=== PATIENT | female | born 1940 | race Caucasian/White ===

== ENCOUNTER 2024-01-11 02:45 | Outpatient (CLI) | payer MEDICARE, OTHER, SELFPAY ==
--- OUTSIDE RECORDS SUMMARY | 2024-01-15 07:46 | XMS_ITS | Clinical Summary ---
Author Organization [facility] Address [address] [place] [address] Care Team Providers Care Front Desk Attendant Name Role Phone Mich Luevano D.O. Primary Care Pro vider Source Comments Patient records contain information from all sites at [facility]. For routine questions regarding patient records, call [phone] during business hours, M-F 8:00 AM - 5:00 PM Central Time. Record requests for emergency care only can be directed to [phone] at any time.[facility] Allergies No known active allergies Medications * [...] Dilated (HCC),Chronic Systolic (Congestive) Heart Failure (HCC),Thrombus Intracardiac,Prison (Current) Anticoagulant Treatment,Monitor ing For Therapeutic Drug [...] cares, use of resources and specialty equipment. 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 Assessment & Plan (09/22/2020 2:16 [...] 3 to 6 months. Will follow with [facility] anticoagulation team. Congestive Heart Failure Eje ction Fraction Less Than 35 Percent And [place] Heart Association Class 2-3 09/13/2020 Overview (04/11/2021): [...] ?? Assessment & Plan (03/11/2021 2:46 PM ELECTRONIC DATA INTERCHANGE SPECIALIST): Handicap parking permit renewed for 6 years [...] have gone ahead and refer her to [facility] Cardiology for their assistance in [...] at that time. Plan to schedule the [facility] Cardiology follow-up and echo prior. ECG also ordered today for an irregular pulse. 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 Mingus lymph node biopsy with isotope and dye [...] smoker Assessment & Plan (03/11/2021 3:05 PM ELECTRONIC DATA INTERCHANGE SPECIALIST): Will continue on current regimen. She will [...] months Next labs: 6 months Referrals: None [facility] Tobacco None: No Aspirin: yes Statin [...] if celiac negative, Order fecal calprotectin (Epic: [id number]) and fecal fat (Epic: [id number]). Categorize test results into 1 of 3 types of chronic diarrhea, per ask [place] Expert chronic diarrhea algorithm. 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 PandaDoc Form (Order [id number]) 01/13/2024 Clinical Communication Department of Anticoagulation in [place], [place] [address] [place] [address] Isidra Stewart Anticoagulation (Admitted) 01/13/2024 Refill Department of Family Medicine, [address] [address] Luis Alfredofschulte-Be Mich cardona D.O. Med Refill 01/12/2024 Clinical Communication Department of Family Medicine, [address] [address] Hardychulte-Be Mich cardona D.O. Panda Doc Form (Order #[id number]) 01/07/2024 Clinical Communication Department of Anticoagulation in [place], [place] [address] [place] [address] Alka Chaudhari R.N. Anticoagulation (Medication interaction) 01/06/2024 3:30 PM CDT Office Visit Department of Family Medicine, [address] [address] Hardychulte-Be Mich cardona D.O. Abscess Skin (Primary Dx); Cerumen Impacted Bilateral; Morbid Obesity (HCC); Candidiasis Intertrigo; Health Maintenance Examination Adult; Depression Major Recurrent Moderate (HCC) 01/06/2024 Clinical Communication Department of Family Medicine, [address] [address] Luis Alfredofschulte-Be Mich cardona D.O. PandaDoc Form (Order [id number]) 01/05/2024 Nurse Triage Department of Family Medicine, [facility] [address] [address] Isidra Vincent R.N. Appt Request 01/05/2024 Clinical Communication Department of Family Medicine, [place], [place] [address] [place] [address] Luis Alfredofschulte-Be ckMich D.O. PandaDoc Form (Physicians Order) 01/04/2024 Clinical Communication Department of Family Medicine, [address] [address] Luis Alfredofschulte-Be ck, Mich Wang D.O. Phone Contact (Update ) 12/31/2023 1:30 PM CDT Anticoagulation Visit Department of Anticoagulation in [place], [place] [address] [place] [phone] Luis Alfredofschulte-Be Mich cardona D.O. Cardiomyopathy Dilated (HCC) (Primary Dx); Chronic Systolic (Congestive) Heart Failure (HCC); Thrombus Intracardiac; Prison (Current) Anticoagulant Treatment; Monitoring For Therapeutic Drug Therapy 12/23/2023 2:00 PM CDT Anticoagulation Visit Department of Anticoagulation in [place], [place] [address] [place] [phone] Luis Alfredofschulte-Be Mich cardona D.O. 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 12/20/2023 Clinical Communication Department of Family Medicine, [address] [address] Luis Alfredofschulte-Be Mich cardona D.OOsvaldo PandaDoc Form (Order [id number]) 12/15/2023 3:00 PM CDT Anticoagulation Visit Department of Anticoagulation in [place], [place] [address] [place] [address] Luis lAfredofschulte-Be ckMich D.O. Cardiomyopathy Dilated (HCC) (Primary Dx); Chronic Systolic (Congestive) Heart Failure (HCC); Thrombus Intracardiac; Prison (Current) Anticoagulant Treatment; Monitoring For Therapeutic Drug Therapy 12/09/2023 Clinical Communication Department of Family Medicine, [place], [place] [address] [place] [address] Luis Alfredofschulte-Be ckMich D.O. PandaDoc Form (OT order) 12/08/2023 1:15 PM CDT Anticoagulation Visit Department of Anticoagulation in [place], [place] [address] [place] [phone] Luis Alfredofschulte-Be ckMich D.O. Cardiomyopathy Dilated (HCC) (Primary Dx); Chronic Systolic (Congestive) Heart Failure (HCC); Thrombus Intracardiac; Prison (Current) Anticoagulant Treatment; Monitoring For Therapeutic Drug Therapy 12/06/2023 Clinical Communication Department of Family Medicine, [place], [place] [address] [place] [address] Luis Alfredofschulte-Be Mich cardona D.O. PandaDoc Form (Order [id number]) 12/06/2023 Refill Department of Family Medicine, [place], [place] [address] [place] [address] Luis Alfredofschulte-Be Mich cardona D.O. Med Refill 12/01/2023 1:30 PM CDT Anticoagulation Visit Department of Anticoagulation in [place], [place] [address] [place] [phone] Luis Alfredofschulte-Be ckMich D.O. Chronic Systolic (Congestive) Heart Failure (HCC) (Primary Dx); Cardiomyopathy Dilated (HCC); Thrombus Intracardiac; Prison (Current) Anticoagulant Treatment; Monitoring For Therapeutic Drug Therapy 11/24/2023 1:40 PM CDT Anticoagulation Visit Department of Anticoagulation in [place], [place] [address] [place] [address] Li Riggs D.O. Cardiomyopathy Dilated (HCC) (Primary Dx); Prison (Current) Anticoagulant Treatment; Thrombus Intracardiac; Congestive Heart Failure Ejection Fraction Less Than 35 Percent And [place] Heart Association Class 2-3 (HCC); Monitoring For Therapeutic Drug Therapy; Chronic Systolic (Congestive) Heart Failure (HCC) 11/24/2023 Clinical Communication Department of Family Medicine, [address] [address] Hofschulte-Be Mich cardona D.O. Panda Doc Form (Order #[id number]) 11/19/2023 Clinical Communication Department of Family Medicine, [address] [address] Luis Alfredofschulte-Be Mich cardona D.O. Order Request 11/19/2023 Clinical Communication Department of Family Medicine, [address] [address] Luis Alfredo Maravilla, ROsvaldoNOsvaldo Follow-up (Appt today) 11/12/2023 Clinical Communication Department of Family Medicine, [address] [address] Hofschulte-Be Mich cardona D.O. Med Question 10/25/2023 Clinical Communication Department of Family Medicine, [address] [address] Luis Alfredofschulte-Be Mich cardona D.O. 10/21/2023 Clinical Communication Department of Anticoagulation in [place], [place] [address] [place] [address] Stacey Suero, R.N. Anticoagulation (Hospital discharge, SNF admit) 10/20/2023 Clinical Communication Department of Family Medicine, [address] [address] Mich Hickman D.O. 10/19/2023 Clinical Communication Department of Family Medicine, [place], [place] [address] [place] [address] Mich Hickman D.O. Order Request 10/17/2023 5:45 AM CDT - 10/20/2023 2:25 PM CDT Hospital Encounter [facility], Second Floor [address] [place] [address] Sonia Lucas M.D., M.S. Rafa Mayberry M.D., M.P.H. [employer] M.D. 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) Anticoagulant Treatment; Thrombus Intracardiac; Congestive Heart Failure Ejection Fraction Less Than 35 Percent And [place] Heart Association Class 2-3 (HCC); Monitoring For [...] Name Status Comments Daughter Yennifer Mother karl iram Social History Tobacco Use Types Packs/Day Years Used Date Smoking Tobacco: Never Passive Smoke Exposure: Never Smokeless Tobacco: Never Tobacco Cessation:Counseling Given: Not Answered Alcohol Use Standard Drinks/Week Comments Yes 1 (1 standard drink = 0.6 oz pur e alcohol) [facility] Utilities Answer Date Recorded In [...] any clubs o r organizations such as advent groups, unions, fraternal or athletic groups, or [...] PHQ-2 Score 6 10/05/2023 [facility] - Occupational Stress Questionnaire Answer [...] living situation today? I have a [facility] place to live 10/17/2023 Education Answer Date Recorded What is the highest level of school you have completed or the highest degree you have received? Some college, no degree 09/28/2018 Comments No Sex and Gender Information Value Date Recorded Sex Assigned at Female 09/22/2017 1:45 PM CDT Legal Sex Female 7:19 AM ELECTRONIC DATA INTERCHANGE SPECIALIST Gender Identity Female 09/22/2017 1:45 PM [...] st Contact Info) Description 01/19/2024 3:30 PM ELECTRONIC DATA INTERCHANGE SPECIALIST Nurse Only Department of Family Medicine, [facility], in [place], [place] [address] [address] Health Maintenance Due Date Last Done Comments Visit: Medicare Annual Wellness 1940 RSV vaccine - (32-36 weeks) or 60+ years (1 - 1-dose 75+ series) 2017 Diabetic Office Visit with Foot Exam 08/06/2021 08/06/2020, 08/10/2019, 08/10/2019 Urine Albumin 12/01/2022 12/01/2021, 07/14, 08/08/2019, Additional history exists Depression Monitoring (PHQ-9 for quality tracking) 03/15/2023 Dilated Eye Exam 05/15/2023 05/14/2022 (Per formed [...] 138/77(01/05 3:23 PM CDT) No Honey King R, R.N. Do one productive activity per day General On track(2018 1:31 PM CDT) Yes Teodora Horvath R.NOsvaldo Note: i.e. flatware maker: clean the kitchen, vacuum, laundry 11/09 is doing more but not everyday 11/23 doing that most of the time, ie laundry, clean kitchen, clean bedroom 12/07/18 been gone a lot so hard to do this Engage in social activities Lifestyle On track(2018 1:32 PM CDT) No Teodora Horvath R.N. Note: Pt will look into attending Senior vitality group at [facility] starting in November 20 went to funerals, talked with another lady she did not know there, doing swinging seniors, swim aerobics, visited her son 11/23/18 went to [email or web address], going to [place] visit [place], going to [employer] 12/07/18 [place] mom and went to concert in [place]. Made a new friend. Hemoglobin A1c < 7.0 Result Component 9.9(05/06/19 24 1:03 PM ELECTRONIC DATA INTERCHANGE SPECIALIST) No Honey King R.N. PHQ-9 Total Score (max 27) < 5 Symptom Management 16( 4 2:19 PM CDT) No Teodora Horvath R.N. Medical Devices Implanted Type Area Stripping Shovel Operator Device Identifier Shelf Expiration Date Model / Serial / Lot Alpine Stent 3.5 X 15 - Valderrama [id number] Implanted:Qty: 1 on 12/24/2016 Cardiac Stent Berry Description:Device Manufactu rer - [employer]. Device Status Text - [id number]. Screw-Matrixrib S-Tap Lock 2.9 X 12mm - Val[place]ama [id number] Implanted:Qty: 5 on 02/16/2012 Hardware e.g. pins/screws/ rods Depuy Synthes Description:Device Manufactu rer - Synthes. Device Status Text - [id number]. Plate-Matrixrib Univ. 8 Holes - Valderrama [id number] Implanted:Qty: 1 on 02/16/2012 Hardware e.g. pins/screws/ rods Depuy Synthes Description:Device Manufactu rer - Synthes. Device Status Text - [id number]. Screw-Matrixrib S-Tap Lock 2.9 X 10mm - Val[place]ama [id number] Implanted:Qty: 3 on 02/16/2012 Hardware e.g. pins/screws/ rods Depuy Synthes Description:Device Manufactu rer - Synthes. Device Status Text - [id number]. Procedures Procedure Name Priority Date/Time Associated Diagnosis Comments MD RMVL IMPACT CERUMEN IRRIG UNILAT Routine 01/06/2024 [...] POCT, B Routine 10/15/2023 10:59 AM CDT Prison (Current) Anticoagulant Treatment Thrombus Intracardiac Congestive Heart Failure Ejection Fraction Less Than 35 Percent And [place] Heart Association Class 2-3 (HCC) Monitoring For Therapeutic Drug Therapy Cardiomyopathy Dilated (HCC) Chronic Systolic (Congestive) Heart Failure (HCC) HEMOGLOBIN A1C, B Routine 05/06/2023 1:0 3 PM ELECTRONIC DATA INTERCHANGE SPECIALIST Diabetes Mellitus Type 2 (HCC) ALBUMIN, RANDOM, U Routine 12/01/2021 3: 22 PM CDT Diabetes Mellitus Type 2 (HCC) from Last 3 Months or Most Recently Relevant to Health Maintenance Results * MD RMVL IMPACT CERUMEN IRRIG UNILAT (01/06/2024 3:30 PM CDT) Narrative MMODAL - 01/06/2024 3:30 PM CDT Nissa Mukherjee L.P.N. ? 01/10/2024 11:21 AM Ear cerumen removal Performed by: Nissa Mukherjee L.P.N. Authorized by: Mich Luevano, DaltonOOsvaldo ?? Care team members present 1. Lonny, Nissa J, L.P.N. PROCEDURE DETAILS Location: left ear and [...] URGICAL ORDERABLES Final Result Performing Organization Address [facility] de Phone Number MMODAL NA * Prothrombin Time (PT) (12/31/2023) Only the most recent of11 resultswithin the time period is included. EXT INR 2.80 OTHER (SPE CIFY IN ADVANCED NURSING PROFESSOR) Comment:HHC/POC Blood (Blood, Venous) Historical Provider LAB BLOOD ADD-ON Final Resul t Performing Organization Address [facility] de Phone Number OTHER (SPECIFY IN ADVANCED NURSING PROFESSOR) N/A * (ABNORMAL) Glucose, POCT (10/20/2023 12:05 [...] ORDERABLES-MANUAL Janet l Result Performing Organization Address City/[facility]/ZIP Co de Phone Number POC [facility] [address] [place] [address], [facility] PCLX [facility] POC [address] [place] [address] * (ABNORMAL) CBC without Differential (10/19/2023 6:00 AM CDT) [facility] Hemoglobin 10.4(L) 11.6 - 15.0 g/dL [...] C.N.P. LAB BLOOD ADD-ON Janet l Result [facility] [address] [place] [address], [facility] DTL [facility] [address] [place] [address] * (ABNORMAL) Basic Metabolic Panel (10/19/2023 6:00 AM CDT) Only the most recent of2 resultswithin the time period is included. Potassium, S 4.2 3.6 - 5.2 mmol/L [...] C.N.P. LAB BLOOD ADD-ON Janet l Result [facility] [address] [place] [address], [facility] [address] [place] [address] * CT Hip Left without IV Contrast [...] and pelvis. Vascularcalcifications. Sonia Lucas M.D., M.S. [facility] DIAGNOSTIC IMAGING PROCEDURES Final Result * DX [...] M.B.A. LAB BLOOD ADD-ON Janet l Result [facility] [address] [place] [address], [facility] [address] [place] [address] * (ABNORMAL) CBC with Differential, Blood (10/17/2023 6:41 AM CDT) Pathologist [facility] Hemoglobin 10.7(L) 11.6 - 15.0 g/dL 10/17/2023 [...] M.B.A. LAB BLOOD ADD-ON Janet l Result [facility] [address] [place] [address], [facility] STMA [facility] [address] [place] [address] DHPM [facility] [address] [place] [address] * CT Cervical Spine without IV Contrast (10/17/2023 6:27 AM CDT) Anatomical Region Laterality Modality Cervical Spine, Neuroradiolo gy RST [facility], Neuroradiology [facility], Neuroradiology FLA [facility] N/A Computed Tomography, Compute d Tomography [...] CDT) Ventricular Rate ECG/Min 75 BPM MUSE MD Interval 178 ms MUSE QRSD Interval 156 ms MUSE QT Interval 470 ms MUSE QTC Interval 524 ms MUSE P [place] 57 degrees MUSE R [place] -8 degrees MUSE T Wave [place] 23 degrees MUSE 10/17/2023 5:52 AM CDT 10/17/2023 2:17 PM CDT Impressions MUSE - 10/17/2023 5:55 AM CDT Normal sinus rhythm Right bundle branch block Cannot rule out Inferior infarct Nonspecific ST and T wave abnormality Prolonged QT When compared with ECG of 11-Apr-2021 16:21, MD interval has decreased QT has lengthened Reviewed by KENYON Eugene Narrative Procedure Note Javan Driscoll M.D. - 10/17/2023 IMPRESSION: Normal sinus rhythm Right bundle branch block Cannot rule out Inferior infarct Nonspecific ST and T wave abnormality Prolonged QT When compared with ECG of 11-Apr-2021 16:21, MD interval has decreased QT has lengthened Reviewed by KENYON Eugene Sonia Lucas M.D., M.S. ECG ORDERABLES Edited [...] POCT ORDERABL ES - DEVICE Final Result [facility] [address] [place] [address], [facility] FMKA [facility] [address] [place] [address] * Albumin, Random, Urine (12/01/2021 3:22 PM CDT) Albumin, Random, U <5.0 mg/L 2021 8:34 AM CDT DTL Comment: ----ADDITIONAL INFORMATION---- This test has been modified from the sand conditioner machine's instructions. Its performance characteristics were determined by [facility] in a manner consistent with CLIA requirements. [...] 3:22 PM CDT 12/02/2021 7:12 AM CDT us Li Riggs D.O. LAB URINE ORDERABLES [facility]ly [facility] Result [facility] [address] [place] [address], [facility] [address] [place] [address] from Last 3 Months or Most Recently Relevant to Health Maintenance Insurance [facility] MEDIC[facility] Advance Directives For more information, please contact: [phone] * DNR (Latest Code Status on File) [...] Answer Comments Full Code: Discussed Care Teams Front Desk Attendant Relationship Specialty Start Date End Date Mich Luevano D.O. [address] [place] [phone] PCP - General 09/12/22
--- OUTSIDE RECORDS SUMMARY | 2024-01-15 07:46 | XMS_ITS | Clinical Summary ---
Author Organization [facility] Address [place], [place] [address] Care Team Providers Care Flap Maker Name Role Phone Staff, Other Clinical Primary [...] Encounters Date Type Department Care Team Description 01/11/2024 6:00 PM CDT Ancillary Procedure [address] [address] Arrived 01/11/2024 Ancillary Orders [place] [facility] [address] [place] [address] Junior Mcmillan MD 10/29/2023 Lab Requisition [facility] [phone] Valentina Loera NP 10/28/2023 Lab Requisition [facility] [phone] Valentina Loera NP from Last 3 Months [...] 12/19/2018 9:14 PM CDT Plan of Treatment Upcoming Encounters Date Type Department Care Team (Late st Contact Info) Description 01/20/2024 1:00 PM 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 Office Visit [facility] [address] [place] [address] Martin Short MD [address] [place] [address] Health Maintenance Due Date Last Done Comments [...] age 65+ 11/14/2023 COVID-19 vaccine series Completed 01/06/20, 01/05/2023, 01/02/2022, Additional history exists Medical Devices Implanted Type Area Lye Bath Operator Device Identifier Shelf Expiration Date Model / Serial / Lot Cornea Dwaine Lijoe Precut Dmek Imported - [id number] Implanted:Qty: 1 on 08/03/2018 by Guevara Wade MD at [facility] Right: Eye [place] [employer] Eye [employer] 08/14/2018 CORNEA PRECUT D# / [id number] CN / Mnsert Straiko Dmek Tissue Implanted:Qty: 1 on 12/21/2018 by Tim Francisco MD at [facility] Left: Eye 12/31/2018 CORNEA / [id number] P / Procedures Procedure Name Priority Date/Time Associated Diagnosis Comments ECHO TTE COMPLETE WO CONTRAST Routine 01/11/2024 2:03 PM CDT Heart failure (HC) CBC WITH AUTO DIFFERENTIAL Routine 11/02/2023 [...] unspecified from Last 3 Months Results * ECHO TTE COMPLETE WO CONTRAST (01/11/2024 2:03 PM CDT) AORTIC VALVE MEAN PG 3 mmHg EJECTION FRACTION 36 % PEAK TR VELOCITY 3.5 m/s LVEDD 5.5 cm Anatomical Region Laterality Modality Ultrasound 01/11/2024 1:18 PM CDT Narrative 01/12/2024 9:18 AM CDT ECHOCARDIOGRAM JEANINE CROW ? Accession#: ?? [id number] : ?1940 83 years Study Date: ?? 01/11/2024 1:18:05 PM Gender: F ?BP: ? 106/58 mmHg Height: 157.00 cm ?BSA: ?1.86 m? ? ? Weight: 86.00 kg ? Tech: ? MJS ? Referring MD: JUNIOR MCMILLAN Site: ? [facility] Reading Location: Mobile [facility] Patient Location: Inpatient. Procedure: 2D, Color Doppler and Spectral Doppler. Indication for study: CHF Cardiac Rhythm: Irregular.Study quality: Fair. Final Impressions: 1. Normal left ventricular size, normal wall thickness, moderately reduced global systolic function, calculated EF of 36 %. 2. Right ventricular cavity size is normal, global systolic RV function is mildly reduced. 3. Moderate-severe tricuspid regurgitation. 4. Moderately increased estimated pulmonary pressures by tricuspid regurgitation velocity and right atrial pressure (48 mmHg plus RAP). 5. The inferior vena cava is normal sized, respiratory size variation greater than 50%. 6. The mitral valve is normal, mild mitral regurgitation. Comparison There are no prior studies on this patient for comparison purposes. Chamber Sizes and Function Normal left ventricular size, normal wall thickness, moderately reduced global systolic function, calculated EF of 36 %. Left atrial size is mildly enlarged. Right ventricular cavity size is normal, global systolic RV function is mildly reduced. The right atrium is mildly enlarged. Right atrial area is 18 cm? ? ?. The pulmonary artery is of normal size and origin. The sinus of Valsalva is normal sized. The ascending aorta is dilated. Valves, RV Pressures and Diastolic Function The aortic valve is sclerotic, no stenosis and no regurgitation. The mitral valve is normal in structure, mild mitral regurgitation. Indeterminate pattern of LV diastolic filling. The tricuspid valve is normal in structure. Tricuspid regurgitation is moderate-severe. The tricuspid regurgitant velocity is 3.5 m/s, the estimated right ventricular systolic pressure is 48 mmHg plus right atrial pressure. There is moderately increased estimated pulmonary pressure by tricuspid regurgitation velocity and right atrial pressure. The pulmonic valve is normal. No pulmonary regurgitation. TTE images do not appear adequate for transcather intervention with patient supine. Masses, Effusion, Shunts There is no pericardial effusion. The inferior vena cava is normal sized, respiratory size variation greater than 50%. No left to right shunting was detected by limited color flow Doppler interrogation of the interatrial septum. MEASUREMENTS AND CALCULATIONS 2-D Measurements and LV Function: LVID (d) 5.5 cm Planimetered EF 36 % LVID (s) 4.0 cm LV FS% (2D) ? 26 % IVS (d) ??1.1 cm LVOT diameter ?? 2.1 cm LVPW (d) 1.2 cm HR ?92 bpm Ao Sinus 3.6 cm LA Vol index ?36 ml/m2 Asc Ao ?? 4.0 cm RA area ? 18 cm?RV Max 4C (d) ?? 3.6 cm Diastology: Mitral E Peak 1.2 m/s Aortic Valve: Vmax ? 1.2 m/s ??MEERA (V) ?? 1.74 cm? ? ? VTI ?0.25 m ?? MEERA (I) ?? 1.80 cm? ? ? LVOT V max 0.6 m/s ??Max PG ?6 mmHg LVOT VTI ?? 0.13 m ?? Mean PG ?? 3 mmHg SV ? 45 ml ?Dim Index 0.52 SV index ?? 24 ml/m? ? ? CO ?4.2 l/min ?CI ?2.2 l/min/m? ? ? Tricuspid Valve and estimated PA pressures: TR Vmax 3.5 m/s TAPSE 1.2 cm TR maxG 48 mmHg . This study was interpreted by an [facility] accredited facility. CC: HIM (med records) [facility], Med/Surg - IP [facility]. ??Final (Updated) ?? Procedure Note Ethan Brady MD - 01/12/2024 ECHOCARDIOGRAM JEANINE CROW : 1940 83 years Study Date: 01/11/2024 1:18:05 PM Gender: F BP: 106/58 mmHg Height: 157.00 cm BSA: 1.86 m? ? ? Weight: 86.00 kg Tech: AMY Referring MD: JUNIOR MCMILLAN Site: [facility] Reading Location: Mobile [facility] Patient Location: Inpatient. Procedure: 2D, Color Doppler and Spectral Doppler. Indication for study: CHF Cardiac Rhythm: Irregular.Study quality: Fair. Final Impressions: 1. Normal left ventricular size, normal wall thickness, moderatelyreduced global systolic function, calculated EF of 36 %. 2. Right ventricular cavity size is normal, global systolic RV functionis mildly reduced. 3. Moderate-severe tricuspid regurgitation. 4. Moderately increased estimated pulmonary pressures by tricuspidregurgitation velocity and right atrial pressure (48 mmHg plus RAP). 5. The inferior vena cava is normal sized, respiratory size variationgreater than 50%. 6. The mitral valve is normal, mild mitral regurgitation. Comparison There are no prior studies on this patient for comparison purposes. Chamber Sizes and Function Normal left ventricular size, normal wall thickness, moderately reducedglobal systolic function, calculated EF of 36 %. Left atrial size ismildly enlarged. Right ventricular cavity size is normal, global systolicRV function is mildly reduced. The right atrium is mildly enlarged. Rightatrial area is 18 cm? ? ?. The pulmonary artery is of normal size and origin.The sinus of Valsalva is normal sized. The ascending aorta is dilated. Valves, RV Pressures and Diastolic Function The aortic valve is sclerotic, no stenosis and no regurgitation. Themitral valve is normal in structure, mild mitral regurgitation.Indeterminate pattern of LV diastolic filling. The tricuspid valve isnormal in structure. Tricuspid regurgitation is moderate-severe. Thetricuspid regurgitant velocity is 3.5 m/s, the estimated right ventricularsystolic pressure is 48 mmHg plus right atrial pressure. There ismoderately increased estimated pulmonary pressure by tricuspidregurgitation velocity and right atrial pressure. The pulmonic valve isnormal. No pulmonary regurgitation. TTE images do not appear adequate fortranscather intervention with patient supine. Masses, Effusion, Shunts There is no pericardial effusion. The inferior vena cava is normal sized,respiratory size variation greater than 50%. No left to right shunting wasdetected by limited color flow Doppler interrogation of the interatrialseptum. MEASUREMENTS AND CALCULATIONS 2-D Measurements and LV Function: LVID (d) 5.5 cm Planimetered EF 36 % LVID (s) 4.0 cm LV FS% (2D) 26 % IVS (d) 1.1 cm LVOT diameter 2.1 cm LVPW (d) 1.2 cm HR 92 bpm Ao Sinus 3.6 cm LA Vol index 36 ml/m2 Asc Ao 4.0 cm RA area 18 cm? ? ? RV Max 4C (d) 3.6 cm Diastology: Mitral E Peak 1.2 m/s Aortic Valve: Vmax 1.2 m/s MEERA (V) 1.74 cm? ? ? VTI 0.25 m MEERA (I) 1.80 cm? ? ? LVOT V max 0.6 m/s Max PG 6 mmHg LVOT VTI 0.13 m Mean PG 3 mmHg SV 45 ml Dim Index 0.52 SV index 24 ml/m? ? ? CO 4.2 l/min CI 2.2 l/min/m? ? ? Tricuspid Valve and estimated PA pressures: TR Vmax 3.5 m/s TAPSE 1.2 cm TR maxG 48 mmHg . This study was interpreted by an [facility] accredited facility. CC: HIM (med records) [facility], Med/Surg - IP [facility]. Final (Updated) Junior Mcmillan MD ECHO ORD * (ABNORMAL) CBC WITH AUTO DIFFERENTIAL (11/02/2023 8:21 AM T) WHITE BLOOD COUNT 6.5 4.5 - 11.0 thou/cu mm 11/02/2023 9:[address] [facility] RED BLOOD COUNT 3.41(L) 4.00 - 5.20 mil/cu mm 11/02/2023 9:[address] [facility] HEMOGLOBIN 11.0(L) 12.0 - 16.0 g/dL 11/02/2023 9:[address] [facility] HEMATOCRIT 33.0 33.0 - 51.0 % 11/02/2023 9:[address] [facility] MCV 97 80 - 100 fL 11/02/2023 9:[address] [facility] MCH 32.3 26.0 - 34.0 pg 11/02/2023 9:[address] [facility] MCHC 33.3 32.0 - 36.0 g/dL 11/02/2023 9:[address] [facility] RDW 14.4 11.5 - 15.5 % 11/02/2023 9:[address] [facility] PLATELET COUNT 341 140 - 440 thou/cu mm 11/02/2023 9:[address] [facility] MPV 9.2 6.5 - 11.0 fL 11/02/2023 9:[address] [facility] % NEUT 63.5 % 11/02/2023 9:[address] [facility] % LYMPH 28.2 % 11/02/2023 9:[address] [facility] % MONO 6.0 % 11/02/2023 9:[address] [facility] % EOS 1.7 % 11/02/2023 9:[address] [facility] % BASO 0.6 % 11/02/2023 9:26 AM CDT [facility] ABSOLUTE NEUTROPHILS 4.1 1.7 - 7.0 thou/cu mm 11/02/2023 9:26 AM CDT [facility] ABSOLUTE LYMPHOCYTES 1.8 0.9 - 2.9 thou/cu mm 11/02/2023 9:26 AM CDT [facility] ABSOLUTE MONOCYTES 0.4 <0.9 thou/cu mm 11/02/2023 9:26 AM CDT [facility] ABSOLUTE EOSINOPHILS 0.1 <0.5 thou/cu mm 11/02/2023 9:26 AM CDT [facility] ABSOLUTE BASOPHILS 0.0 <0.3 thou/cu mm 11/02/2023 9:26 AM CDT [facility] Blood BLOOD SPECIMEN / Unknown Venipuncture / Unknown 11/02/2023 8:21 AM CDT 11/02/2023 9:18 AM CDT Valentina Loera NP HEMATOLOGY [facility] [address] [place] [address] * (ABNORMAL) HEMOGLOBIN A1C SCREENING (11/02/2023 8:21 AM CDT) HEMOGLOBIN A1C SCREENING 8.7(H) <=6.4 % 11/02/2023 9:26 AM CDT [facility] Blood BLOOD SPECIMEN / Unknown Venipuncture / Unknown 11/02/2023 8:21 AM CDT 11/02/2023 9:18 AM CDT Narrative [facility] - 11/02/2023 9:26 AM CDT ? (<5.7%) ?Normal ? (5.7% to 6.4%) ? Indicates prediabetes ? (>=6.5%) ? Confirms diabetes Falsely low levels may be seen with: Recent Transfusion, Recent Significant Blood Loss, Hemolytic Diseases, or Falsely elevated levels may be seen with: Untreated Anemias, Splenectomy Valentina Loera NP CHEMISTRY [facility] [address] [facility] [place] [address] * (ABNORMAL) BASIC METABOLIC PANEL (11/02/2023 8:21 AM CDT) SODIUM 139 136 - 145 mmol/L 11/02/2023 9:[address] [facility] POTASSIUM 4.3 3.5 - 5.1 mmol/L 11/02/2023 9:[address] [facility] CHLORIDE 103 98 - 107 mmol/L 11/02/2023 9:[address] [facility] CO2,TOTAL 28 22 - 29 mmol/L 11/02/2023 9:[address] [facility] ANION GAP 8 5 - 18 11/02/2023 9:[address] [facility] GLUCOSE 140(H) 70 - 99 mg/dL 11/02/2023 9:[address] [facility] CALCIUM 9.3 8.8 - 10.2 mg/dL 11/02/2023 9:[address] [facility] BUN 18 8 - 23 mg/dL 11/02/2023 9:[address] [facility] CREATININE 0.90 0.50 - 0.90 mg/dL 11/02/2023 9:[address] [facility] BUN/CREAT RATIO 20 10 - 20 9:[address] [facility] eGFR 65(L) >90 mL/min/1.7 3m2 11/02/2023 9:[address] [facility] Comment:As of 2021, eG FR is calculated by the CKD-EPI creatinine equation without race adjustment. ??eGFR can be influenced by muscle mass, exercise, and diet. ??The reported eGFR is an estimation only and is only applicable if the renal function is stable. Blood BLOOD SPECIMEN / Unknown Venipuncture / Unknown 11/02/2023 8:21 AM CDT 11/02/2023 9:18 AM CDT Valentina Loera NP CHEMISTRY [facility] [address] [place] [address] from Last 3 Months Advance Directives * [...] Code Status Discussion: Not Discussed Care Teams Flap Maker Relationship Specialty Start Date End Date Staff, Other Clinical . PCP - General 10/05/17
--- OUTSIDE RECORDS SUMMARY | 2024-01-15 07:47 | XMS_ITS | Encounter Summary ---
Author Organization [facility] Address [address] [place] [address] Care Team Providers Care Care Partner Name Role Phone Mich Luevano D.O. Primary Care Pro vider Reason for Visit * Reason Onset Date Comments Anticoagulation 01/13/2024 Admitted Encounter Details Date Type Department Care Team (Latest Contact Info) Description 01/13/2024 Clinical Communication Department of Anticoagulation in [place], [place] [address] [place] [address] Isidra Stewart Anticoagulation (Admitted) Social History Tobacco Use Types Packs/Day Years Used Date Smoking Tobacco: Never Passive Smoke Exposure: Never Smokeless Tobacco: Never Alcohol Use Standard Drinks/Week Comments Yes 1 (1 standard drink = 0.6 oz pur e alcohol) [facility] Utilities Answer Date Recorded In the past 12 months has e [employer], gas, oil, or water [employer] threatened to shut off services in your [...] How often do you attend chur or methodist services? More than 4 times per year 06/15/2022 Do you belong to any clubs o r organizations such as shinto groups, unions, fraternal or athletic groups, or [...] Answer Date Recorded PHQ-2 Score 6 10/05/2023 [facility] - Occupational [...] your living situation today? I have a [facility] place to live 10/17/2023 Education Answer Date Recorded What is the highest level of school you have completed or the highest degree you have received? 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 Author Blood Pressure < 140/90 Blood Pressure 138/77(01/05 3:23 PM CDT) No Honey King R.N. Do one productive activity per day General On track(2018 1:31 PM CDT) Yes Teodora Horvath R.N. Note: i.e. 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 Note: Pt will look into attending Senior vitality group at [facility] starting in November 20 went to funerals, talked with another lady she did not know there, doing [employer], swim aerobics, visited her son 11/23/18 went to [employer], going to [place] to visit relatives, going to [employer] 12/07/18 went to [place] to visit mom and went to concert in [place]. Made a new friend. Hemoglobin A1c < 7.0 Result Component 9.9(05/06/19 24 1:03 PM STUDIO PRODUCER) No Honey King RLiyah PHQ-9 Total Score (max 27) < 5 Symptom Management 16( 4 2:19 PM CDT) No Teodora Horvath ROsvaldoNOsvaldo documented as of this encounter Visit Diagnoses Not on filedocumented in this encounter Additional Health Concerns Assessment Noted Time PHQ-9 Depression Total Score: 16 024 2:19 PM CDT documented as of this encounter Care Teams Care Partner Relationship Specialty Start Date End Date Mich Luevano D.O. [address] [place] [address] PCP - General 09/12/22 documented as of this encounter
--- OUTSIDE RECORDS SUMMARY | 2024-01-15 07:47 | XMS_ITS | Referral Summary ---
Author Organization [facility] Address [address] [place] [address] Care Team Providers Care Radar Mechanic Name Role Phone Mich Luevano D.O. Primary Care Pro vider Source Comments Patient records contain information from all sites at [facility]. For routine questions regarding patient records, call [phone] during business hours, M-F 8:00 AM - 5:00 PM Central Time. Record requests for emergency care only can be directed to [phone] at any time.[facility] Encounters Date Type Department Care Team Description 01/13/2024 Clinical Communication Department of Family Medicine, [facility], [place], [place] [address] [place] [address] Mich Hickman D.O. PandaDoc Form (Order [id number]) 01/13/2024 Clinical Communication Department of Anticoagulation in [place], [place] [address] [place] [address] Isidra Stewart Anticoagulation (Admitted) 01/13/2024 Refill Department of Family Medicine, [place], [place] [address] [place] [address] Mich Hickman D.O. Med Refill 01/12/2024 Clinical Communication Department of Family Medicine, [address] [address] Hardychulte-Be Mich cardona D.O. Panda Doc Form (Order #[id number]) 01/07/2024 Clinical Communication Department of Anticoagulation in [place], [place] [address] [place] [address] Alka Chaudhari R.N. Anticoagulation (Medication interaction) 01/06/2024 Clinical Communication Department of Family Medicine, [address] [address] Hardychulte-Be Mich cardona D.O. PandaDoc Form (Order [id number]) 01/06/2024 3:30 PM CDT Office Visit Department of Family Medicine, [address] [address] Jhonulte-Be Mich cardona D.O. Abscess Skin (Primary Dx); Cerumen Impacted Bilateral; Morbid Obesity (HCC); Candidiasis Intertrigo; Health Maintenance Examination Adult; Depression Major Recurrent Moderate (HCC) 01/05/2024 Nurse Triage Department of Family Medicine, [address] [address] Isidra Vincent RLiliya. Appt Request 01/05/2024 Clinical Communication Department of Family Medicine, [address] [address] Luis Alfredofschulte-Be Mich cardona D.O. PandaDoc Form (Physicians Order) 01/04/2024 Clinical Communication Department of Family Medicine, [address] [address] Hardychulte-Be Mich cardona D.O. Phone Contact (Update ) 12/31/2023 1:30 PM CDT Anticoagulation Visit Department of Anticoagulation in [place], [place] [address] [place] [address] Luis Alfredofschulte-Be ckMich D.O. Cardiomyopathy Dilated (HCC) (Primary Dx); Chronic Systolic (Congestive) Heart Failure (HCC); Thrombus Intracardiac; Assisted (Current) Anticoagulant Treatment; Monitoring For Therapeutic Drug Therapy 12/23/2023 2:00 PM CDT Anticoagulation Visit Department of Anticoagulation in [place], [place] [address] [place] [address] Hofschulte-Be ckMich D.OOsvaldo Cardiomyopathy Dilated (HCC) (Primary Dx); Chronic Systolic (Congestive) Heart Failure (HCC); Thrombus Intracardiac; Lift Builder Whole (Current) Anticoagulant Treatment; Monitoring For Therapeutic Drug Therapy 12/21/2023 Orders Only [facility] Luis Alfredofschulte-Be Mich cardona D.O. 12/20/2023 Clinical Communication Department of Family Medicine, [place], [place] [address] [place] [address] Hofschulte-Be ckMich D.O. PandaDoc Form (Order [id number]) 12/15/2023 3:00 PM CDT Anticoagulation Visit Department of Anticoagulation in [place], [place] [address] [place] [phone] Luis Alfredofschulte-Be ckMich D.OOsvaldo Cardiomyopathy Dilated (HCC) (Primary Dx); Chronic Systolic (Congestive) Heart Failure (HCC); Thrombus Intracardiac; Assisted (Current) Anticoagulant Treatment; Monitoring For Therapeutic Drug Therapy 12/09/2023 Clinical Communication Department of Family Medicine, [place], [place] [address] [place] [address] Hofschulte-Be ckMich D.OOsvaldo DomingoaDoc Form (OT order) 12/08/2023 1:15 PM CDT Anticoagulation Visit Department of Anticoagulation in [place], [place] [address] [place] [address] [facility] D.[facility]. Cardiomyopathy Dilated (HCC) (Primary Dx); Chronic Systolic (Congestive) Heart Failure (HCC); Thrombus Intracardiac; Assisted (Current) Anticoagulant Treatment; Monitoring For Therapeutic Drug Therapy 12/06/2023 Clinical Communication Department of Family Medicine, [place], [place] [address] [place] [address] Luis Alfredofschulte-Be Mich cardona D.O. PandaDoc Form (Order [id number]) 12/06/2023 Refill Department of Family Medicine, [place], [place] [address] [place] [address] Hardychulte-Be Mich cardona D.O. Med Refill 12/01/2023 1:30 PM CDT Anticoagulation Visit Department of Anticoagulation in [place], [place] [address] [place] [address] [facility] Mich cardona D.O. Chronic Systolic (Congestive) Heart Failure (HCC) (Primary Dx); Cardiomyopathy Dilated (HCC); Thrombus Intracardiac; Assisted (Current) Anticoagulant Treatment; Monitoring For Therapeutic Drug Therapy 11/24/2023 1:40 PM CDT Anticoagulation Visit Department of Anticoagulation in [place], [place] [address] [place] [address] Li Riggs D.Hermes Cardiomyopathy Dilated (HCC) (Primary Dx); Lift Builder Whole (Current) Anticoagulant Treatment; Thrombus Intracardiac; Congestive Heart Failure Ejection Fraction Less Than 35 Percent And [place] Heart Association Class 2-3 (HCC); Monitoring For Therapeutic Drug Therapy; Chronic Systolic (Congestive) Heart Failure (HCC) 11/24/2023 Clinical Communication Department of Family Medicine, [place], [place] [address] [place] [address] Renny-Be Mich cardona D.O. Panda Doc Form (Order #[id number]) 11/19/2023 Clinical Communication Department of Family Medicine, [facility] [place], [place] [address] [place] [address] Luis Alfredofschulte-Be dulce, Dalton EstradaO. Order Request 11/19/2023 Clinical Communication Department of Family Medicine, [place], [place] [address] [place] [address] Luis Alfredo Maravilla R.N. Follow-up (Appt today) 11/12/2023 Clinical Communication Department of Family Medicine, [address] [address] Hardychulte-Be dulce, Mich Wang D.O. Med Question 10/25/2023 Clinical Communication Department of Family Medicine, [place], [place] [address] [place] [address] Renny-Be dulce, Dalton EstradaO. 10/21/2023 Clinical Communication Department of Anticoagulation in [place], [place] [address] [place] [address] Stacey Suero, ROsvaldoN. Anticoagulation (Hospital discharge, SNF admit) 10/20/2023 Clinical Communication Department of Family Medicine, [address] [address] Hardychulte-Be dulce, Sherry Estrada.O. 10/17/2023 5:45 AM CDT - 10/20/2023 2:25 PM CDT Hospital Encounter [facility], Second Floor [address] [place] [address] Sonia Lucas M.D., M.S. Rafa Mayberry M.D., M.P.H. [employer] M.D. 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 Order Request 10/15/2023 10:10 AM CDT Anticoagulation Visit Department of Anticoagulation in [place], [place] [address] [place] [address] Li Riggs D.O. Thrombus Intracardiac (Primary Dx); Cardiomyopathy Dilated (HCC); Chronic Systolic (Congestive) Heart Failure (HCC); Assisted (Current) Anticoagulant Treatment; Monitoring For Therapeutic Drug Therapy 10/15/2023 9:30 AM CDT - 10/15/2023 11:59 PM CDT Hospital Encounter Department of Laboratory Medicine in [address] [address] Mich Hickman D.O. Lift Builder Whole (Current) Anticoagulant Treatment; Thrombus Intracardiac; Congestive Heart Failure Ejection Fraction Less Than 35 Percent And [place] Heart Association Class 2-3 (HCC); Monitoring For [...] Dilated (HCC),Chronic Systolic (Congestive) Heart Failure (HCC),Thrombus Intracardiac,Lift Builder Whole (Current) Anticoagulant Treatment,Monitor ing For Therapeutic Drug [...] Apply to painful joints and muscles. 10/20/19 024 Discontin ued(Thera py completed ) lidocaine (Lidoderm) 5 % adhesive patch,medicated Place 1 patch on the skin daily. Apply to painful areas. 10/20/19 024 Discontin ued(Thera py completed ) nystatin (Nystop) 100,000 unit/gram powder Apply 1 Application topically 2 (two) times a day. Apply to groin folds. 10/20/19 24 024 Discontin ued(Reord er) oxyCODONE (Roxicodone) 5 mg immediate release tabletIndications :Acute Pain Take 0.5-1 tablets (2.5-5 mg total) by mouth every 4 (four) hours as needed for severe pain or score 7-10 of 10 (Give 2.5 mg for pain score 4-6 or give 5 mg for pain score 7-10) Indication: Acute Pain. 18 tablet 10/20/19 024 Discontin ued(Therehsan py completed ) Active Problems Problem Noted [...] cares, use of resources and specialty equipment. Assisted (Current) Anticoagulant Treatment 09/12 Overview (09/22/2020): Intracardiac thrombus Assessment & Plan (10/07/2020 4:06 PM CDT): She has followed with [facility] anticoagulation team. Assessment & Plan (09/22/2020 [...] 3 to 6 months. Will follow with [facility] anticoagulation team. Congestive Heart Failure Eje ction Fraction Less Than 35 Percent And [place] Heart Association Class 2-3 09/13/2020 Overview (04/11/2021): [...] ?? Assessment & Plan (03/11/2021 2:46 PM HOME VISIT FIELD CARE MANAGER): Handicap parking permit renewed for 6 years [...] have gone ahead and refer her to [facility] Cardiology for their assistance in managing [...] at that time. Plan to schedule the [facility] Cardiology follow-up and echo prior. ECG also ordered today for an irregular pulse. 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 Wilson lymph node biopsy with isotope and dye [...] smoker Assessment & Plan (03/11/2021 3:05 PM HOME VISIT FIELD CARE MANAGER): Will continue on current regimen. She will [...] months Next labs: 6 months Referrals: None [facility] Tobacco None: No Aspirin: yes Statin Use [...] if celiac negative, Order fecal calprotectin (Epic: [id number]) and fecal fat (Epic: [id number]). Categorize test results into 1 of 3 types of chronic diarrhea, per ask [place] Expert chronic diarrhea algorithm. 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 More than 4 times per year 06/15/2022 Do you belong to any clubs o r organizations such as confucianist groups, unions, fraternal or athletic groups, or [...] Answer Date Recorded PHQ-2 Score 6 10/05/2023 [facility] [place] of Occupat ional Health - Occupational Stress [...] your living situation today? I have a [employer] place to live 10/17/2023 Education Answer Date Recorded What is the highest level of school you have completed or the highest degree you have received? Some college, no degree 09/28/2018 Comments No Sex and Gender Information Value Date Recorded Sex Assigned at Female 09/22/2017 1:45 PM CDT Legal Sex Female 7:19 AM HOME VISIT FIELD CARE MANAGER Gender Identity Female 09/22/2017 1:45 PM CDT [...] st Contact Info) Description 01/19/2024 3:30 PM HOME VISIT FIELD CARE MANAGER Nurse Only Department of Family Medicine, [facility], in [place], [place] [address] [place] [address] Goals Goal Patient Goal Type Associated Problems Recent Progress Patient-Stated? Author Blood Pressure < 140/90 Blood Pressure 138/77(01/05 3:23 PM CDT) No Honey King ROsvaldoN. Do one productive activity per day General On track(2018 1:31 PM CDT) Yes Teodora Horvath, R.N. 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 Made a new friend. Hemoglobin A1c < 7.0 Result Component 9.9(05/06/19 24 1:03 PM HOME VISIT FIELD CARE MANAGER) No Honey King R.N. PHQ-9 Total Score (max 27) < 5 Symptom Management 16( 2:19 PM CDT) No Teodora Horvath R.N. Medical Devices Implanted Type Area Manager Educational Device Identifier Shelf Expiration Date Model / Serial / Lot Mohanine Stent 3.5 X 15 - Valderrama [id number] Implanted:Qty: 1 on 12/24/2016 Cardiac Stent Berry Description:Device Manufactu rer - [employer]. Device Status Text - [id number]. Screw-Matrixrib S-Tap Lock 2.9 X 12mm - Valderrama [id number] Implanted:Qty: 5 on 02/16/2012 Hardware e.g. pins/screws/ rods Depuy Synthes Description:Device Manufactu rer - Synthes. Device Status Text - [id number]. Plate-Matrixrib Univ. 8 Holes - Valderrama [id number] Implanted:Qty: 1 on 02/16/2012 Hardware e.g. pins/screws/ rods Depuy Synthes Description:Device Manufactu rer - Synthes. Device Status Text - [id number]. Screw-Matrixrib S-Tap Lock 2.9 X 10mm - Valderrama [id number] Implanted:Qty: 3 on 02/16/2012 Hardware e.g. pins/screws/ rods Depuy Synthes Description:Device Manufactu rer - Synthes. Device Status Text - [id number]. Procedures Procedure Name Priority Date/Time Associated Diagnosis Comments TX RMVL IMPACT CERUMEN IRRIG UNILAT Routine 01/06/2024 [...] POCT, B Routine 10/15/2023 10:59 AM CDT Lift Builder Whole (Current) Anticoagulant Treatment Thrombus Intracardiac Congestive Heart Failure Ejection Fraction Less Than 35 Percent And [place] Heart Association Class 2-3 (HCC) Monitoring For Therapeutic Drug Therapy Cardiomyopathy Dilated (HCC) Chronic Systolic (Congestive) Heart Failure (HCC) HEMOGLOBIN A1C, B Routine 05/06/2023 1:0 3 PM HOME VISIT FIELD CARE MANAGER Diabetes Mellitus Type 2 (HCC) ALBUMIN, RANDOM, U Routine 12/01/2021 3: 22 PM CDT Diabetes Mellitus Type 2 (HCC) from Last 3 Months or Most Recently Relevant to Health Maintenance Results * TX RMVL IMPACT CERUMEN IRRIG UNILAT (01/06/2024 3:30 PM CDT) Narrative MMODAL - 01/06/2024 3:30 PM CDT Nissa Mukherjee L.P.N. ? 01/10/2024 11:21 AM Ear cerumen removal Performed by: Nissa Mukherjee L.P.N. Authorized by: Mich Luevano, DaltonOOsvaldo ?? Care team members present 1. Nissa [...] EXT INR 2.80 OTHER (SPE CIFY IN SENIOR PRODUCT DESIGNER) Comment:HHC/POC Blood (Blood, Venous) Historical Provider LAB BLOOD ADD-ON Final Resul t Performing Organization Address City/[facility] Co de Phone Number OTHER (SPECIFY IN SENIOR PRODUCT DESIGNER) N/A * (ABNORMAL) Glucose, POCT (10/20/2023 12:05 [...] ORDERABLES-MANUAL Janet l Result Performing Organization Address City/[facility]/ZIP Co de Phone Number POC [facility] [address] [place] [address], [facility] PCLX [facility] POC [address] [place] [address] * (ABNORMAL) CBC without Differential (10/19/2023 6:00 [...] C.N.P. LAB BLOOD ADD-[place] [address], [place] [address] * (ABNORMAL) Basic Metabolic Panel (10/19/2023 6:00 [...] C.N.P. LAB BLOOD ADD-ON Janet l Result [address] [address], [facility] [place] [address] * CT Hip Left without IV Contrast [...] and pelvis. Vascularcalcifications. Sonia Lucas M.D., M.S. IM DIAGNOSTIC IMAGING PROCEDURES Final Result * DX [...] 6:41 AM CDT 10/17/2023 7:07 AM CDT us Darius Reeder M.D., M.B.A. LAB BLOOD ADD-ON Janet l Result [facility] ER - [facility] [address] [place] [address], [facility] DTL [facility] [address] [place] [address] * (ABNORMAL) CBC with Differential, Blood (10/17/2023 [...] LAB BLOOD ADD-ON Janet l Result [facility] [address] [place] [address], [facility] STMA [facility] [address] [place] [address] [facility] [address] [place] [address] * CT Cervical Spine without IV Contrast [...] changes as described. Sonia Lucas M.D., M.S. IM CT PROCEDURES Final Result * CT Head [...] CDT) Ventricular Rate ECG/Min 75 BPM MUSE TX Interval 178 ms MUSE QRSD Interval 156 ms MUSE QT Interval 470 ms MUSE QTC Interval 524 ms MUSE P [place] 57 degrees MUSE R [place] -8 degrees MUSE T Wave [place] 23 degrees MUSE 10/17/2023 5:52 AM CDT 10/17/2023 2:17 PM CDT Impressions MUSE - 10/17/2023 5:55 AM CDT Normal sinus rhythm Right bundle branch block Cannot rule out Inferior infarct Nonspecific ST and T wave abnormality Prolonged QT When compared with ECG of 11-Apr-2021 16:21, TX interval has decreased QT has lengthened Reviewed by KENYON Eugene Narrative Procedure Note Javan Driscoll M.D. - 10/17/2023 IMPRESSION: Normal sinus rhythm Right bundle branch block Cannot rule out Inferior infarct Nonspecific ST and T wave abnormality Prolonged QT When compared with ECG of 11-Apr-2021 16:21, TX interval has decreased QT has lengthened Reviewed [...] - DEVICE Final Result Performing Organization Address [facility] [place] [address], [facility] [place] [address] * Albumin, Random, Urine (12/01/2021 3:22 PM CDT) Albumin, Random, U <5.0 mg/L 2021 8:34 AM CDT DTL Comment: ----ADDITIONAL INFORMATION---- This test has been modified from the installer apprentice's instructions. Its performance characteristics were determined by [facility] in a manner consistent with CLIA requirements. [...] us Li Riggs D.O. LAB URINE ORDERABLES Fi nal Result [facility] [address] [place] [address], [facility] [address] [place] [address] from Last 3 Months or Most Recently Relevant to Health Maintenance Insurance [facility] MEDIC[facility] Advance Directives For more information, please contact: [phone] * DNR (Latest Code Status on File) [...] Answer Comments Full Code: Discussed Care Teams Radar Mechanic Relationship Specialty Start Date End Date Mich Luevano D.O. [address] [place] [phone] PCP - General 09/12/22
--- OUTSIDE RECORDS SUMMARY | 2024-01-15 07:47 | XMS_ITS | Encounter Summary ---
Author Organization [facility] Address [address] [place] [address] Care Team Providers Care Process Control Supervisor Name Role Phone Mich Luevano D.O. Primary Care Pro vider Reason for Visit * Reason Onset Date Comments Panda Doc Form 01/12/2024 Order #[id number] Encounter Details Date Type Department Care Team (Latest Contact Info) Description 01/12/2024 Clinical Communication Department of Family Medicine, [facility], [place], [place] [address] [place] [phone] Mich Luevano D.O. [address] [place] [phone] Panda Doc Form (Order #[id number]) Social History Tobacco Use Types Packs/Day Years Used Date Smoking Tobacco: Never Passive Smoke Exposure: Never Smokeless Tobacco: Never Alcohol Use Standard Drinks/Week Comments Yes 1 (1 standard drink = 0.6 oz pur e alcohol) [facility] Utilities Answer Date Recorded In the [...] often do you attend chur ch or mandaen services? More than 4 times per year 06/15/2022 Do you belong to any clubs o r organizations such as christianity groups, unions, fraternal or athletic groups, or [...] Answer Date Recorded PHQ-2 Score 6 10/05/2023 [facility] of Occupat ional Health - Occupational [...] your living situation today? I have a [facility] place to live 10/17/2023 Education Answer Date Recorded What is the highest level of school you have completed or the highest degree you have received? Some college, no degree 09/28/2018 Comments No Sex and Gender Information Value Date Recorded Sex Assigned at Female 09/22/2017 1:45 PM CDT Legal Sex Female 7:19 AM RELAY TECHNICIAN Gender Identity Female 09/22/2017 1:45 PM CDT Sexual Orientation Straight 09/22/2017 1: 45 PM CDT documented as of this encounter Miscellaneous Notes * Telephone Encounter - Lily Tucker 01/12/2024 3:01 PM CDT Form faxed, copy to chart documented in this encounter Plan of Treatment Upcoming Encounters Date Type Department Care Team (Late st Contact Info) Description 01/19/2024 3:30 PM RELAY TECHNICIAN Nurse Only Department of [facility] Medicine, [facility], in [place], [place] [address] [place] [address] documented as of this encounter Goals Goal Patient Goal Type Associated Problems Recent Progress Patient-Stated? Author Blood Pressure < 140/90 Blood Pressure 138/77(01/05 3:23 PM CDT) No Honey King ROsvaldoN. Do one productive activity per day General On track(2018 1:31 PM CDT) Yes Teodora Horvath, R.N. 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 Note: Pt will look into attending [facility] group at [facility] starting in November 20 went to funerals, talked with another lady she did not know there, doing [employer], swim aerobics, visited her son 11/23/18 went to [employer], going to [place] to visit [place], going to [employer] 12/07/18 went [place] to visit mom and went to concert in [place]. Made a new friend. Hemoglobin A1c < 7.0 Result Component 9.9(05/06/19 24 1:03 PM RELAY TECHNICIAN) No Honey King R.N. PHQ-9 Total Score (max 27) < 5 Symptom Management 16( 4 2:19 PM CDT) No Myhre, Teodora R, R.N. documented as of this encounter Visit Diagnoses Not on filedocumented in this encounter Additional Health Concerns Assessment Noted Time PHQ-9 Depression Total Score: 16 024 2:19 PM CDT documented as of this encounter Care Teams Process Control Supervisor Relationship Specialty Start Date End Date Mich Luevano D.O. [address] [place] [address] PCP - General 09/12/22 documented as of this encounter
--- OUTSIDE RECORDS SUMMARY | 2024-01-15 07:47 | XMS_ITS ---
Author Organization [facility] Address [address] [place] [address] Care Team Providers Care Masonry Teacher Name Role Phone Unavailable Unavailable Unavailable Surgery Details Not on file Complications Check Surgery Details section. Procedure Estimated Blood Loss Check Surgery Details section. Procedure Findings Check Surgery Details section. Procedure Specimens Taken Check Surgery Details section.
--- OUTSIDE RECORDS SUMMARY | 2024-01-15 07:47 | XMS_ITS | Encounter Summary ---
Author Organization [facility] Address [address] [place] [address] Care Team Providers Care Slumber Room Attendant Name Role Phone Mich Luevano D.O. Primary Care Pro vider Reason for Visit * Reason Onset Date Comments PandaDoc Form 01/06/2024 Order [id number] Encounter Details Date Type Department Care Team (Latest Contact Info) Description 01/06/2024 Clinical Communication Department of Family Medicine, [facility], in [place], [place] [address] [place] [address] Mich Luevano D.O. [address] [place] [address] PandaDoc Form (Order [id number]) Social History Tobacco Use Types Packs/Day Years [...] often do you attend chur ch or jew services? More than 4 times per year 06/15/2022 Do you belong to any clubs o r organizations such as presybeterian groups, unions, fraternal or athletic groups, or [...] Answer Date Recorded PHQ-2 Score 6 10/05/2023 [facility] of Occupat ional Health - [...] your living situation today? [facility] 10/17/2023 Education Answer Date Recorded What is the highest level of school you have completed or the highest degree you have received? Some college, no degree 09/28/2018 Comments No Sex and Gender Information Value Date Recorded Sex Assigned at Female 09/22/2017 1:45 PM CDT Legal Sex Female 7:19 AM FRONT DESK MONITOR Gender Identity Female 09/22/2017 1:45 PM CDT Sexual Orientation Straight 09/22/2017 1: 45 PM CDT documented as of this encounter Miscellaneous Notes * Telephone Encounter - Silvia Engel - 01/10/2024 9:54 AM CDT Form faxed and scanned to chart. documented in this encounter Plan of Treatment Upcoming Encounters Date Type Department Care Team (Late st Contact Info) Description 01/19/2024 3:30 PM FRONT DESK MONITOR Nurse Only Department of Family Medicine, [facility], in [place], [place] [address] [place] [address] documented as of this encounter Goals Goal Patient Goal Type Associated Problems Recent Progress Patient-Stated? Author Blood Pressure < 140/90 Blood Pressure 138/77(01/05 3:23 PM CDT) No Honey King RLiliya. Do one productive activity per day General On track(2018 1:31 PM CDT) Yes Teodora Horvath, R.N. 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 Note: Pt will look into attending Senior vitality group at [facility] starting in November 20 went to funerals, talked with another lady she did not know there, doing [employer], swim aerobics, visited her son 11/23/18 went to [employer], going [place] to visit [place], going to [employer] 12/07/18 went [place] to visit mom and went to concert in [place]. Made a new friend. Hemoglobin A1c < 7.0 Result Component 9.9(05/06/19 24 1:03 PM FRONT DESK MONITOR) No Honey King ROsvaldoN. PHQ-9 Total Score (max 27) < 5 Symptom Management 16( 2:19 PM CDT) No Teodora Horvath, R.N. documented as of this encounter Visit Diagnoses Not on filedocumented in this encounter Additional Health Concerns Assessment Noted Time PHQ-9 Depression Total Score: 16 10/04/ 024 2:19 PM CDT documented as of this encounter Care Teams Slumber Room Attendant Relationship Specialty Start Date End Date Mich Luevano D.O. [address] [place] [address] PCP - General 09/12/22 documented as of this encounter
--- OUTSIDE RECORDS SUMMARY | 2024-01-15 07:47 | XMS_ITS | Encounter Summary ---
Author Organization [facility] Address [address] [place] [address] Care Team Providers Care Geoscientist Name Role Phone Mich Luevano D.O. Primary Care Pro vider Reason for Referral * Outpatient (Routine) - Authorized Specialty Diagnoses / Procedures Referred By Contac t Referred To Contact Mich Luevano D.O. [address] [place] [address] Phone: tel: fax: [facility] Referral ID Status Reason Start Date Expiration Date V isits Requested Visits Authorized [id number] Authorized 12/21/2023 06/21/2025 1 1 Scheduling Instructions Nurse AWV Do not schedule prior to due date to ensure insurance coverage Visit: Medicare Annual Wellness Never done. Encounter Details Date Type Department Care Team (Latest Contact Info) Description 12/21/2023 Orders Only RST PCP [facility] MNT Mich Luevano D.O. [address] [place] [address] Social History Tobacco Use Types Packs/Day Years Used Date Smoking Tobacco: Never Passive Smoke Exposure: Never Smokeless Tobacco: Never Alcohol Use Standard Drinks/Week Comments Yes 1 (1 standard drink = 0.6 oz pur e alcohol) [facility] Utilities Answer Date Recorded In the [...] often do you attend chur ch or orthodoxy services? More than 4 times [...] 10/05/2023 [facility] of Occupat ional [facility] - Occupational Stress Questionnaire Answer Date Recorded [...] living situation today? I have a [facility] place to live 10/17/2023 Education Answer Date Recorded What is the highest level of school you have completed or the highest degree you have received? Some college, no degree 09/28/2018 Comments No Sex and Gender Information Value Date Recorded Sex Assigned at Female 09/22/2017 1:45 PM CDT Legal Sex Female 7:19 AM DIRECTOR AIRPORT Gender Identity Female 09/22/2017 1:45 PM CDT Sexual Orientation Straight 09/22/2017 1: 45 PM CDT documented as of this encounter Plan of Treatment Upcoming Encounters Date Type Department Care Team (Late st Contact Info) Description 01/19/2024 3:30 PM DIRECTOR AIRPORT Nurse Only Department of Family Medicine, [facility], in [place], [place] [address] [place] [address] Scheduled Referrals Name Type Priority Associated Diagnoses Orde r Schedule Primary Care nurse visit (clinic) - [facility]; Medicare Annual Wellness Outpatient Referral Routine Expected: 01/18/2024, Expires: 06/18/2024 documented as of this encounter Goals Goal Patient Goal Type Associated Problems Recent Progress Patient-Stated? Author Blood Pressure < 140/90 Blood Pressure 138/77(01/05 3:23 PM CDT) No Honey King ROsvaldoNOsvaldo Do one productive activity per day General On track(2018 1:31 PM CDT) Yes Teodora Horvath ROsvaldoN. 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 Note: Pt will look into attending Senior vitality group at [facility] starting in November 20 went to funerals, talked with another lady she did not know there, doing [employer], swim aerobics, visited her son 11/23/18 went to [employer], going [place] to visit [place], going to [employer] 12/07/18 went [place] to visit mom and went to concert in [place]. Made a new friend. Hemoglobin A1c < 7.0 Result Component 9.9(05/06/19 24 1:03 PM DIRECTOR AIRPORT) No Honey King ROsvaldoN. PHQ-9 Total Score (max 27) < 5 Symptom Management 16( 4 2:19 PM CDT) No Teodora Horvath ROsvaldoNOsvaldo documented as of this encounter Visit Diagnoses Not on filedocumented in this encounter Additional Health Concerns Assessment Noted Time PHQ-9 Depression Total Score: 16 024 2:19 PM CDT documented as of this encounter Care Teams Geoscientist Relationship Specialty Start Date End Date Mich Luevano D.O. [address] [place] [phone] PCP - General 09/12/22 documented as of this encounter
--- OUTSIDE RECORDS SUMMARY | 2024-01-15 07:47 | XMS_ITS | Encounter Summary ---
Author Organization [facility] Address [address] [place] [address] Care Team Providers Care Shower Room Attendant Name Role Phone Mich Luevano D.O. Primary Care Pro vider Reason for Visit * Reason Onset Date Comments PandaDoc Form 12/09/2023 OT order Encounter Details Date Type Department Care Team (Latest Contact Info) Description 12/09/2023 Clinical Communication Department of Family Medicine, [facility], in [place], [place] [address] [place] [address] Mich Luevano D.O. [address] [place] [address] PandaDoc Form (OT order) Social History Tobacco Use Types Packs/Day Years Used Date Smoking Tobacco: Never Passive Smoke Exposure: Never Smokeless Tobacco: Never Alcohol Use Standard Drinks/Week Comments Yes 1 (1 standard drink = 0.6 oz pur e alcohol) [facility] Utilities Answer Date Recorded In the past [...] often do you attend chur ch or sikh services? More than 4 times per year [...] Answer Date Recorded PHQ-2 Score 6 10/05/2023 [facility] of Occupat ional Health - Occupational Stress [...] your living situation today? I have a [facility] place to live 10/17/2023 Education Answer Date Recorded What is the highest level of school you have completed or the highest degree you have received? Some college, no degree 09/28/2018 Comments No Sex and Gender Information Value Date Recorded Sex Assigned at Female 09/22/2017 1:45 PM CDT Legal Sex Female 7:19 AM BATCH AND FURNACE MANAGER Gender Identity Female 09/22/2017 1:45 PM CDT Sexual Orientation Straight 09/22/2017 1: 45 PM CDT documented as of this encounter Miscellaneous Notes * Telephone Encounter - Toro Silviabeka Mcdermott 12/10/2023 10:57 AM CDT Form faxed and scanned to chart. documented in this encounter Plan of Treatment Upcoming Encounters Date Type Department Care Team (Late st Contact Info) Description 01/19/2024 3:30 PM BATCH AND FURNACE MANAGER Nurse Only Department of Family Medicine, [facility], in [place], [place] [address] [address] documented as of this encounter Goals Goal Patient Goal Type Associated Problems Recent Progress Patient-Stated? Author Blood Pressure < 140/90 Blood Pressure 138/77(01/05 3:23 PM CDT) No Honey King R.N. Do one productive activity per day General On track(2018 1:31 PM CDT) Yes Teodora Horvath R.N. 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 Note: Pt will look into attending Senior vitality group at [facility] starting in November 20 went to funerals, talked with another lady she did not know there, doing [employer], swim aerobics, visited her son 11/23/18 went to [employer], going [place] to visit [place], going to [employer] 12/07/18 went [place] to visit mom and went to concert in [place]. Made a new friend. Hemoglobin A1c < 7.0 Result Component 9.9(05/06/19 24 1:03 PM BATCH AND FURNACE MANAGER) No Honey King ROsvaldoN. PHQ-9 Total Score (max 27) < 5 Symptom Management 16( 4 2:19 PM CDT) No Teodora Horvath, R.N. documented as of this encounter Visit Diagnoses Not on filedocumented in this encounter Additional Health Concerns Assessment Noted Time PHQ-9 Depression Total Score: 16 10/04/ 024 2:19 PM CDT documented as of this encounter Care Teams Shower Room Attendant Relationship Specialty Start Date End Date Mich Luevano D.O. [address] [place] [address] PCP - General 09/12/22 documented as of this encounter
--- OUTSIDE RECORDS SUMMARY | 2024-01-15 07:47 | XMS_ITS | Encounter Summary ---
Author Organization [facility] Address [address] [place] [address] Care Team Providers Care Stucco Mason Name Role Phone Mich Luevano D.O. Primary Care Pro vider Reason for Visit * Reason Onset Date Comments Phone Contact 01/04/2024 Update Encounter Details Date Type Department Care Team (Latest Contact Info) Description 01/04/2024 Clinical Communication Department of Family Medicine, [place], [place] [address] [place] [address] Mich Luevano D.O. [address] [place] [address] Phone Contact (Update ) Social History Tobacco Use Types Packs/Day Years Used Date Smoking Tobacco: Never Passive Smoke Exposure: Never Smokeless Tobacco: Never Alcohol Use Standard Drinks/Week Comments Yes 1 (1 standard drink = 0.6 oz pur e alcohol) [facility] Utilities Answer Date Recorded In [...] any clubs o r organizations such as catholic groups, unions, fraternal or athletic groups, [...] your living situation today? I have a [facility] place to live 10/17/2023 Education Answer Date Recorded What is the highest level of school you have completed or the highest degree you have received? Some college, no degree 09/28/2018 Comments No Sex and Gender Information Value Date Recorded Sex Assigned at Female 09/22/2017 1:45 PM CDT Legal Sex Female 7:19 AM S3B MULTI SENSOR OPERATOR Gender Identity Female 09/22/2017 1:45 PM CDT Sexual Orientation Straight 09/22/2017 1: 45 PM CDT documented as of this encounter Plan of Treatment Upcoming Encounters Date Type Department Care Team (Late st Contact Info) Description 01/19/2024 3:30 PM S3B MULTI SENSOR OPERATOR Nurse Only Department of Family Medicine, [facility], in [place], [place] [address] [place] [phone] documented as of this encounter Goals Goal Patient Goal Type Associated Problems Recent Progress Patient-Stated? Author Blood Pressure < 140/90 Blood Pressure 138/77(01/05 3:23 PM CDT) No Honey King R.N. 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 Made a new friend. Hemoglobin A1c < 7.0 Result Component 9.9(05/06/19 24 1:03 PM S3B MULTI SENSOR OPERATOR) No Honey King ROsvaldoN. PHQ-9 Total Score (max 27) < 5 Symptom Management 16( 4 2:19 PM CDT) No Teodora Horvath R.N. documented as of this encounter Visit Diagnoses Not on filedocumented in this encounter Additional Health Concerns Assessment Noted Time PHQ-9 Depression Total Score: 16 024 2:19 PM CDT documented as of this encounter Care Teams Stucco Mason Relationship Specialty Start Date End Date Mich Luevano D.O. [address] [place] [address] PCP - General 09/12/22 documented as of this encounter
--- OUTSIDE RECORDS SUMMARY | 2024-01-15 07:47 | XMS_ITS | Encounter Summary ---
Author Organization [facility] Address [address] [place] [address] Care Team Providers Care Tyre Retreader Name Role Phone Mich Luevano D.O. Primary Care Pro vider Reason for Visit * Reason Onset Date Comments Appt Request 01/05/2024 Encounter Details Date Type Department Care Team (Late st Contact Info) Description 01/05/2024 Nurse Triage Department of Family Medicine, [facility], in [place], [place] [address] [place] [address] Isidra Vincent R.N. [address] [place] [phone] Appt Request Social History Tobacco Use Types Packs/Day Years Used Date Smoking Tobacco: Never Passive Smoke Exposure: Never Smokeless Tobacco: Never Alcohol Use Standard Drinks/Week Comments Yes 1 (1 standard drink = 0.6 oz pur e alcohol) [facility] Utilities Answer Date Recorded In the past [...] Answer Date Recorded PHQ-2 Score 6 10/05/2023 [facility] of Occupat ional Health - Occupational Stress [...] your living situation today? I have a [facility] place to live 10/17/2023 Education Answer Date Recorded What is the highest level of school you have completed or the highest degree you have received? Some college, no degree 09/28/2018 Comments No Sex and Gender Information Value Date Recorded Sex Assigned at Female 09/22/2017 1:45 PM CDT Legal Sex Female 7:19 AM POWER WOOD SAWYER Gender Identity Female 09/22/2017 1:45 PM CDT [...] st Contact Info) Description 01/19/2024 3:30 PM POWER WOOD SAWYER Nurse Only Department of Family Medicine, [facility], in [place], [place] [address] [place] [address] documented as of this encounter Goals Goal Patient Goal Type Associated Problems Recent Progress Patient-Stated? Author Blood Pressure < 140/90 Blood Pressure 138/77(01/05 3:23 PM CDT) No Honey King R.N. Do one productive activity per day General On track(2018 1:31 PM CDT) Yes Teodora Horvath R.N. 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 Note: Pt will look into attending Senior vitality group at [facility] starting in November 20 went to funerals, talked with another lady she did not know there, doing [employer], swim aerobics, visited her son 11/23/18 went to [employer], going to [place] to visit relatives, going to [employer] 12/07/18 went to [place] to visit mom and went to concert in [place]. Made a new friend. Hemoglobin A1c < 7.0 Result Component 9.9(05/06/19 24 1:03 PM POWER WOOD SAWYER) No Honey King ROsvaldoN. PHQ-9 Total Score (max 27) < 5 Symptom Management 16( 4 2:19 PM CDT) No Teodora Horvath RLiyah documented as of this encounter Visit Diagnoses Not on filedocumented in this encounter Additional Health Concerns Assessment Noted Time PHQ-9 Depression Total Score: 16 024 2:19 PM CDT documented as of this encounter Care Teams Tyre Retreader Relationship Specialty Start Date End Date Mich Luevano D.O. [address] [place] [address] PCP - General 09/12/22 documented as of this encounter
--- OUTSIDE RECORDS SUMMARY | 2024-01-15 07:47 | XMS_ITS | Encounter Summary ---
Author Organization [facility] Address [address] [place] [address] Care Team Providers Care Speech Professor Name Role Phone Mich Luevano D.O. Primary Care Pro vider Reason for Referral * Outpatient (Routine) - Closed Specialty Diagnoses / Procedures Referred By Seven reddy Referred To Contact Anticoagulation Mich Luevano D.O. [address] [place] [address] Phone: tel: fax: [facility] Referral ID Status Reason Start Date Expiration Date Visits Re quested Visits Authorized [id number] Closed 12/23/2023 06/23/2025 1 1 Scheduling Instructions 12/29/2023 Reason for Visit * Outpatient (Routine) - Closed Specialty Diagnoses / Procedures Referred By Contac t Referred To Contact Anticoagulation Diagnoses Cardiomyopathy Dilated (HCC) Chronic Systolic (Congestive) Heart Failure (HCC) Thrombus Intracardiac Assisted (Current) Anticoagulant Treatment Monitoring For Therapeutic Drug Therapy Mich Luevano D.O. [address] [place] [address] Phone: tel: fax: [facility] Referral ID Status Reason Start Date Expiration Date Visits Re quested Visits Authorized [id number] Closed 12/15/2023 06/15/2025 1 1 Encounter Details Date Type Department Care Team (Latest Contact Info) Description 12/23/2023 2:00 PM CDT Anticoagulation Visit Department of Anticoagulation in [place], [place] [address] [place] [address] Hailey cardona, Mich Wang D.O. [address] [place] [address] Cardiomyopathy Dilated (HCC) (Primary Dx); Chronic Systolic (Congestive) Heart Failure (HCC); Thrombus Intracardiac; Carpenter Rough (Current) Anticoagulant Treatment; Monitoring For Therapeutic Drug Therapy Social History Tobacco Use Types Packs/Day Years Used Date Smoking Tobacco: Never Passive Smoke Exposure: Never Smokeless Tobacco: Never Alcohol Use Standard Drinks/Week Comments Yes 1 (1 standard drink = 0.6 oz pur e alcohol) [facility] Utilities Answer Date Recorded In the past 12 months has e [employer], gas, oil, or water [employer] threatened to shut off services in your [...] often do you attend chur ch or mosque services? More than 4 times per year 06/15/2022 Do you belong to any clubs o r organizations such as temple groups, unions, fraternal or athletic groups, or [...] your living situation today? I have a [facility] place to live 10/17/2023 Education Answer Date Recorded What is the highest level of school you have completed or the highest degree you have received? Some college, no degree 09/28/2018 Comments No Sex and Gender Information Value Date Recorded Sex Assigned at Female 09/22/2017 1:45 PM CDT Legal Sex Female 7:19 AM MUSIC THEORY PROFESSOR Gender Identity Female 09/22/2017 1:45 PM CDT [...] thistime you may need to consult your functional support analyst provider for Warfarin dosing. If you have sent the faxed assessment form and have not received Warfarin dosing instructions by 2 pm or have questions about these instructions, please contact the Anticoagulation Program for assistance at [phone], Wednesday-Wednesday from 7:30 am to 4:30 pm. [...] if you start any herbal or other ljqz-krz-ftzzyyn product (check with your doctor, a nurse, [...] st Contact Info) Description 01/19/2024 3:30 PM MUSIC THEORY PROFESSOR Nurse Only Department of Family Medicine, [facility], in [place], [place] [address] [address] Scheduled Referrals Name Type Priority [...] General On track(2018 1:31 PM CDT) Yes Teoodra Horvath R.N. 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 Note: Pt will look into attending Senior vitality group at [facility] starting in November 20 went to funerals, talked with another lady she did not know there, doing [employer], swim aerobics, visited her son 11/23/18 went to [employer], going to [place] to visit relatives, going to [employer] 12/07/18 went to [place] to visit mom and went to concert in [place]. Made a new friend. Hemoglobin A1c < 7.0 Result Component 9.9(05/06/19 24 1:03 PM MUSIC THEORY PROFESSOR) No Honey King RLiliya. PHQ-9 Total Score (max 27) < 5 Symptom Management 16( 4 2:19 PM CDT) No Teodora Horvath ROsvaldoN. documented as of this encounter Procedures Procedure Name Priority Date/Time Associated Diagnosis Comments PROTHROMBIN TIME (PT), P Routine 12/23/2023 documented in this encounter Results * Prothrombin Time (PT) (12/23/2023) EXT INR 2.20 OTHER (SPE CIFY IN TRAUMA COORDINATOR) Blood (Blood, Venous) 12/23/2023 Narrative Resulting Agency Comment [facility] us Historical Provider LAB BLOOD ADD-ON Final Resul t OTHER (SPECIFY IN TRAUMA COORDINATOR) N/A documented in this encounter Visit Diagnoses Diagnosis Cardiomyopathy Dilated (HCC)- Primary Chronic Systolic (Congestive) Heart Failure (HCC) Thrombus Intracardiac Assisted (Current) Anticoagulant Treatment Monitoring For Therapeutic Drug Therapy documented in this encounter Additional Health Concerns Assessment Noted Time PHQ-9 Depression Total Score: 16 10/04/ 024 2:19 PM CDT documented as of this encounter Care Teams Speech Professor Relationship Specialty Start Date End Date Mich Luevano D.O. [facility] [place] [address] PCP - General 09/12/22 documented as of this encounter
--- OUTSIDE RECORDS SUMMARY | 2024-01-15 07:47 | XMS_ITS | Encounter Summary ---
Author Organization [facility] Address [address] [place] [address] Care Team Providers Care Flower Arranger Name Role Phone Mich Luevano D.O. Primary Care Pro vider Reason for Referral * Outpatient (Routine) - Closed Specialty Diagnoses / Procedures Referred By Contac t Referred To Contact Anticoagulation Mich Luevano D.O. 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 [address] [place] [address] Phone: tel: fax: [place] [facility] Referral ID Status Reason Start Date Expiration Date Visits Re quested Visits Authorized [id number] Closed 12/01/2023 06/01/2025 1 1 Encounter Details Date Type Department Care Team (Latest Contact Info) Description 12/08/2023 1:15 PM CDT Anticoagulation Visit Department of Anticoagulation in [place], [place] [address] [place] [address] Hailey cardona, Mich Wang D.O. 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 Note: Pt will look into attending Senior vitality group at [facility] starting in November 20 went to funerals, talked with another lady she did not know there, doing [employer], swim aerobics, visited her son 11/23/18 went to [employer], going [place] to [place], going to [employer] 12/07/18 [place] mom and went to concert in [place]. Made a new friend. Hemoglobin A1c < 7.0 Result Component 9.9(05/06/19 24 1:03 PM THERAPY TECHNICIAN) No Honey King R.N. PHQ-9 Total [...] Systolic (Congestive) Heart Failure (HCC) Thrombus Intracardiac [facility] (Current) Anticoagulant Treatment Monitoring For Therapeutic Drug Therapy documented in this encounter Additional Health Concerns Assessment Noted Time PHQ-9 Depression Total Score: 16 024 2:19 PM CDT documented as of this encounter Care Teams Flower Arranger Relationship Specialty Start Date End Date Mich Luevano D.O. [address] [place] [address] PCP - General 09/12/22 documented as of this encounter
--- OUTSIDE RECORDS SUMMARY | 2024-01-15 07:47 | XMS_ITS | Encounter Summary ---
Author Organization [facility] Address [address] [place] [address] Care Team Providers Care Vice President Risk Management Name Role Phone Mich Luevano D.O. Primary Care Pro vider Reason for Visit * Reason Onset Date Comments PandaDoc Form 12/20/2023 Order [id number] Encounter Details Date Type Department Care Team (Latest Contact Info) Description 12/20/2023 Clinical Communication Department of Family Medicine, [facility], in [place], [place] [address] [place] [address] Mich Luevano D.O. [address] [place] [address] [employer]anda[employer] Form (Order [id number]) Social History Tobacco Use Types Packs/Day Years Used Date Smoking Tobacco: Never Passive Smoke Exposure: Never Smokeless Tobacco: Never Alcohol Use Standard Drinks/Week Comments Yes 1 (1 standard drink = 0.6 oz pur e alcohol) [facility] Utilities Answer Date Recorded In [...] Date Recorded PHQ-2 Score 6 10/05/2023 [facility] of Occupat ional Health - Occupational [...] living situation today? I have a [facility] place to live 10/17/2023 Education Answer Date Recorded What is the highest level of school you have completed or the highest degree you have received? 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 documented in this encounter Plan of Treatment Upcoming Encounters Date Type Department Care Team (Late st Contact Info) Description 01/19/2024 3:30 PM DETECTIVE AUTOMOBILE SECTION Nurse Only Department of Family Medicine, [facility], in [place], [place] [address] [place] [phone] documented as of this encounter Goals Goal Patient Goal Type Associated Problems Recent Progress Patient-Stated? Author Blood Pressure < 140/90 Blood Pressure 138/77(01/05 3:23 PM CDT) No Honey King RLiliya. Do one productive activity per day General On track(2018 1:31 PM CDT) Yes Teodora Horvath, R.N. 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 Note: Pt will look into attending Senior vitality group at [facility] starting in November 20 went to funerals, talked with another lady she did not know there, doing [employer], swim aerobics, visited her son 11/23/18 went to [employer], going [place], going to [employer] 12/07/18 went [place] and went to concert in [place]. Made a new friend. Hemoglobin A1c < 7.0 Result Component 9.9(05/06/19 24 1:03 PM DETECTIVE AUTOMOBILE SECTION) No Honey King ROsvaldoN. PHQ-9 Total Score (max 27) < 5 Symptom Management 16( 2:19 PM CDT) No Teodora Horvath, R.N. documented as of this encounter Visit Diagnoses Not on filedocumented in this encounter Additional Health Concerns Assessment Noted Time PHQ-9 Depression Total Score: 16 10/04/ 024 2:19 PM CDT documented as of this encounter Care Teams Vice President Risk Management Relationship Specialty Start Date End Date Mich Luevano D.O. [address] [place] [address] PCP - General 09/12/22 documented as of this encounter
--- OUTSIDE RECORDS SUMMARY | 2024-01-15 07:47 | XMS_ITS | Encounter Summary ---
Author Organization [facility] Address [address] [place] [address] Care Team Providers Care Memorial Mason Name Role Phone Mich Luevano D.O. Primary Care Pro vider Reason for Visit * Reason Onset Date Comments Anticoagulation 01/07/2024 Medication inter action Encounter Details Date Type Department Care Team (Latest Contact Info) Description 01/07/2024 Clinical Communication Department of Anticoagulation in [place], [place] [address] [place] [address] Alka Chaudhari RLiyah Anticoagulation (Medication interaction) Social History Tobacco Use Types Packs/Day Years Used Date Smoking Tobacco: Never Passive Smoke Exposure: Never Smokeless Tobacco: Never Alcohol Use Standard Drinks/Week Comments Yes 1 (1 standard drink = 0.6 oz pur e alcohol) [facility] Utilities Answer Date Recorded In the past 12 months has e [employer], gas, oil, or water [employer] threatened to shut off services in your [...] often do you attend chur ch or zoroastrian services? More than 4 times per year 06/15/2022 Do you belong to any clubs o r organizations such as anglican groups, unions, fraternal or athletic groups, or [...] Answer Date Recorded PHQ-2 Score 6 10/05/2023 [facility] of Occupat ional Health - Occupational Stress [...] your living situation today? I have a [facility] place to live 10/17/2023 Education Answer Date Recorded What is the highest level of school you have completed or the highest degree you have received? Some college, no degree 09/28/2018 Comments No Sex and Gender Information Value Date Recorded Sex Assigned at Female 09/22/2017 1:45 PM CDT Legal Sex Female 7:19 AM KST OPERATOR Gender Identity Female 09/22/2017 1:45 PM CDT Sexual Orientation Straight 09/22/2017 1: 45 PM CDT documented as of this encounter Plan of Treatment Upcoming Encounters Date Type Department Care Team (Late st Contact Info) Description 01/19/2024 3:30 PM KST OPERATOR Nurse Only Department of Family Medicine, [facility], in [place], [place] [address] [address] documented as of this encounter Goals Goal Patient Goal Type Associated Problems Recent Progress Patient-Stated? Author Blood Pressure < 140/90 Blood Pressure 138/77(01/05 3:23 PM CDT) No Honey King R.N. Do one productive activity per day General On track(2018 1:31 PM CDT) Yes Teodora Horvath R.N. 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 Made a new friend. Hemoglobin A1c < 7.0 Result Component 9.9(05/06/19 24 1:03 PM KST OPERATOR) No Honey King R.N. PHQ-9 Total Score (max 27) < 5 Symptom Management 16( 2:19 PM CDT) No Teodora Horvath R.N. 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 [address] [place] [address] PCP - General 09/12/22 documented as of this encounter
--- OUTSIDE RECORDS SUMMARY | 2024-01-15 07:47 | XMS_ITS | Encounter Summary ---
Author Organization [facility] Address [address] [place] [address] Care Team Providers Care Assembly Line Leader Name Role Phone Mich Luevano D.O. Primary Care Pro vider Reason for Visit * Outpatient (Routine) - Closed Specialty Diagnoses / Procedures Referred By Contezio t Referred To Contact Anticoagulation Mich Luevano D.O. [address] [place] [address] Phone: tel: fax: [facility] Referral ID Status Reason Start Date Expiration Date Visits Re quested Visits Authorized [id number] Closed 12/23/2023 06/23/2025 1 1 Encounter Details Date Type Department Care Team (Latest Contact Info) Description 12/31/2023 1:30 PM CDT Anticoagulation Visit Department of Anticoagulation in [place], [place] [address] [place] [address] Mich Hickman D.O. 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 Utilities Answer Date Recorded In the [...] How often do you attend chur or sabianist services? 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 Wednesday-Wednesday [...] if you start any herbal or other [id number] product (check with your doctor, a nurse, [...] st Contact Info) Description 01/19/2024 3:30 PM RESIDENTIAL DOOR INSTALLER Nurse Only Department of Family Medicine, [facility], in [place], [place] [address] [place] [address] documented as of this encounter Goals Goal Patient Goal Type Associated Problems Recent Progress Patient-Stated? Author Blood Pressure < 140/90 Blood Pressure 138/77(01/05 3:23 PM CDT) No Honey King R.N. Do one productive activity per day General On track(2018 1:31 PM CDT) Yes Teodora Horvath R.N. 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 swim aerobics, visited her son 11/23/18 went to [email or web address] going to [employer] to visit relatives, going to [employer] 12/07/18 went [place] mom and went to concert in [place]. Made a new friend. Hemoglobin A1c < 7.0 Result Component 9.9(05/06/19 24 1:03 PM RESIDENTIAL DOOR INSTALLER) No Honey King R.N. PHQ-9 Total Score (max 27) < 5 Symptom Management 16( 4 2:19 PM CDT) No Teodora Horvath R.N. documented as of this encounter Procedures Procedure Name Priority Date/Time Associated Diagnosis Comments PROTHROMBIN TIME (PT), P Routine 12/31/2023 documented in this encounter Results * Prothrombin Time (PT) (12/31/2023) EXT INR 2.80 OTHER (SPE CIFY IN POWDER MILL OPERATOR) Comment:HHC/POC Blood (Blood, Venous) [facility] Provider LAB BLOOD ADD-ON Final Resul t OTHER (SPECIFY IN POWDER MILL OPERATOR) N/A documented in this encounter Visit Diagnoses Diagnosis Cardiomyopathy Dilated (HCC)- Primary Chronic Systolic (Congestive) Heart Failure (HCC) Thrombus Intracardiac Ret[employer] (Current) Anticoagulant Treatment Monitoring For Therapeutic Drug Therapy documented in this encounter Additional Health Concerns Assessment Noted Time PHQ-9 Depression Total Score: 16 10/04/ 024 2:19 PM CDT documented as of this encounter Care Teams Assembly Line Leader Relationship Specialty Start Date End Date Mich Luevano, Harry [address] [place] [address] PCP - General 09/12/22 documented as of this encounter
--- OUTSIDE RECORDS SUMMARY | 2024-01-15 07:47 | XMS_ITS | Encounter Summary ---
Author Organization [facility] Address [address] [place] [address] Care Team Providers Care Multifocal Button Inspector Name Role Phone Mich Luevano D.O. Primary Care Pro vider Reason for Referral * Outpatient (Routine) - Authorized Specialty Diagnoses / Procedures Referred By Contac t Referred To Contact Diagnoses Cerumen Impacted Bilateral Procedures Ear cerumen removal Mich Luevano D.O. [address] [place] [address] Phone: tel: fax: Referral ID Status Reason Start Date Expiration Date V isits Requested Visits Authorized [id number] Authorized 01/06/2024 01/05/2025 1 1 * Outpatient (Routine) - Authorized Specialty Diagnoses / Procedures Referred By Contac t Referred To Contact Family Medicine Mich Luevano D.O. [address] [place] [address] Phone: tel: fax: [facility] Referral ID Status Reason Start Date Expiration Date V isits Requested Visits Authorized [id number] Authorized 01/06/2024 07/07/2025 1 1 Scheduling Instructions 1-2 weeks recheck groin/abdomen abscess * Outpatient (Routine) - Authorized Specialty Diagnoses / Procedures Referred By Contac t Referred To Contact [facility] Mich Luevano D.O. [address] [place] [address] Phone: tel: fax: [facility] Referral ID Status Reason Start Date Expiration Date V isits Requested Visits Authorized [id number] Authorized 01/06/2024 07/07/2025 1 1 * Outpatient (Routine) - Authorized Specialty Diagnoses / Procedures Referred By Contac t Referred To Contact Diagnoses Abscess Skin Procedures US Abdomen Limited Soft Tissue Mich Luevano D.O. [address] [place] [address] Phone: tel: fax: [facility] Referral ID Status Reason Start Date Expiration Date V isits Requested Visits Authorized [id number] Authorized 01/06/2024 01/05/2025 1 1 * Outpatient (Routine) - Authorized Specialty Diagnoses / Procedures Referred By Contac t Referred To Contact Family [facility] Mich Luevano D.O. [address] [place] [address] Phone: tel: fax: [facility] Referral ID Status Reason Start Date Expiration Date V isits Requested Visits Authorized [id number] Authorized 01/06/2024 07/07/2025 1 1 Scheduling Instructions 6-8 weeks follow up depression * Outpatient (Routine) - Authorized Specialty Diagnoses / Procedures Referred By Seven reddy Referred To Contact Diagnoses Cerumen Impacted Bilateral Procedures FAM Ear wax removal procedure Mich Luevano D.O. [address] [place] [address] Phone: tel: fax: [facility] Referral ID Status Reason Start Date Expiration Date V isits Requested Visits Authorized [id number] Authorized 01/06/2024 01/05/2025 1 1 Reason for Visit * Reason Comments Boil * Appointment Request (Routine) - Closed Specialty Diagnoses / Procedures Referred By Seven reddy Referred To Contact Family Medicine Referral ID Status Reason Start Date Expiration Date Visits Re quested Visits Authorized [id number] Closed 01/05/2024 01/04/2025 1 1 Encounter Details Date Type Department Care Team (Late st Contact Info) Description 01/06/2024 3:30 PM CDT Office Visit Department of Family Medicine, [place], [place] [address] [place] [phone] Mich Luevano D.O. [address] [place] [phone] Abscess Skin (Primary Dx); Cerumen Impacted Bilateral; Morbid Obesity (HCC); Candidiasis Intertrigo; Health Maintenance Examination Adult; Depression Major Recurrent Moderate (HCC) Social History Tobacco Use Types Packs/Day Years Used Date Smoking Tobacco: Never Passive Smoke Exposure: Never Smokeless Tobacco: Never Alcohol Use Standard Drinks/Week Comments Yes 1 (1 standard drink = 0.6 oz pur e alcohol) [facility] Utilities Answer Date Recorded In the [...] week 06/15/2022 How often do you attend [facility] or yazidi services? More than 4 times per year 06/15/2022 Do you belong to any clubs o r organizations such as rastafari groups, unions, fraternal or athletic groups, or [...] Answer Date Recorded PHQ-2 Score 6 10/05/2023 [facility] [place] of Occupat ional Health - Occupational Stress [...] living situation today? I have a [facility] place to live 10/17/2023 Education Answer Date Recorded What is the highest level of school you have completed or the highest degree you have received? 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 - 01/06/2024 3:30 PM CDT SUBJECTIVE: CHIEF COMPLAINT / REASON FOR VISIT Jeanine is a 83 y.o. female with a past medical history of coronary artery disease, dilated cardiomyopathy, congestive heart failure, type 2 diabetes, intracardiac thrombus on warfarin who presents forevaluation of an abscess on patient's abdomen. HISTORY OF PRESENT ILLNESS #1 Abscess Skin #2 Cerumen Impacted Bilateral #3 Morbid Obesity (HCC) #4 Candidiasis Intertrigo #5 Health Maintenance Examination Adult #6 Depression Major Recurrent Moderate (HCC) Patient presents today to discuss an abscess on lower abdomen. Here with daughter whom she lives with. #Abscess Per triage note it has been present for a few months, it was oozing, blood and pus. Daughter has been draining it some. No fevers or chills. Has not had this in the past. - Last tetanus shot in 2020. # cerumen Patient was interested in getting a bilateral ear wash, she has a sensation of fullness in bilateral ears. Without any pain, no fevers or chills. # health maintenance: Patient was interested in obtaining flu and COVID shot #Hx of depression PReviously on wellbutrin 300mg, but script says increase up to 450mg but patient never did this. Unfortunately patient is out of medicine and has been as she has been in and out of [facility], hospitals and now at [facility]. - Pt has had a lower appetite, more irritable, low energy, more sad overall. #Hx of groin rash, presumed fungal - Needs a refill on nystatin Takes a shower 1/week. Daughter performs prerna care. OBJECTIVE: PHYSICAL EXAM BP 138/77 (BP Location: Right arm, Patient Position: Sitting, Cuff Size: Large) Pulse 83 Temp 36.3 ??C Wt 85.9 kg BMI 34.64 kg/m?? Constitutional Comments: frail older adult female, needs lots of help with transitioing from chair to bed. HENT Head: Normocephalic and atraumatic. Ears: Comments: Both canals and partially impacted with cerumen, partial view of TM looks non bulging or erythematous Nose: Nose normal. No congestion or rhinorrhea. Mouth/Throat: Mouth: Mucous membranes are moist. Cardiovascular Rate and Rhythm: Normal rate and regular rhythm. Pulses: Normal pulses. Heart sounds: No murmur heard. Comments: Split S2 Pulmonary Effort: Pulmonary effort is normal. No respiratory distress. Breath sounds: No wheezing or rhonchi. Abdominal General: There is no distension. Palpations: Abdomen is soft. Tenderness: There is no abdominal tenderness. Comments: On L lower abdomen/upper pelvis there is a 4 mm opening what when squeezed has serosangenous drainage. Fluctuance felt surrounding this. Tender somewhat to the touch. foul odor. No erythema Genitourinary Comments: On L side of groin underneath pannus there is some light red irriated skin without any drainage or scale. Neurological Mental Status: She is alert. ASSESSMENT AND PLAN: #1 Abscess Skin Appears like an abscess vs cyst vs boil. Unable to see how deep it tracts, but it does have an odorand given pus drainage at home there is likely some aspect of an infection of fluid. Recommend thatwe initiate on doxy and cefdinir for 10 days to cover bases for MRSA given Hx of DM and recent [facility] stay. Recommend that we additionally obtain U/S formally to view for sinus tracts and gain size of the abscess. Recommend that we see patient back in the next 1-2 weeks to see if we need to extend antbiotics andto view progress of abscess. - US Abdomen Limited Soft Tissue; Future; Expected date: 01/06/2024 #2 Cerumen Impacted Bilateral Will clean out canals today. If unsuccessful may have to do debrox prior to for 1-2 weeks prior to cerumen removal. - FAM Ear wax removal procedure; Future; Expected date: 01/06/2024 - Ear cerumen removal #3 Morbid Obesity (HCC) #4 Candidiasis Intertrigo Some mild candidiasis. Recommend that patient try to take shower/bath more frequently than weekly, although daughter does clean area on daily basis. After bath/shower - recommend that she let area dry for several minutes/ hour and can apply nystatin as needed. #5 Health Maintenance Examination Adult Will administer immunizations today. Pt agreeable. #6 Depression Major Recurrent Moderate (HCC) Unfortunately patient has been without wellbutrin for sometime. LOoks like she had been on wellbutrin at max of 300mg daily. We will reiniate back on wellbutrin 150 for 1 week then 300 daily. Follow up in 4-6 weeks to recheck mood Other orders - influenza high dose (65 years and older unless otherwise indicated)(PF) - nystatin (Nystop) 100,000 unit/gram powder; Apply 1 Application topically 2 (two) times a day. Apply to groin folds., Starting Wed01/06/2024, Normal - buPROPion XL (Wellbutrin XL) 150 mg 24 hr tablet; Multiple Dosages:Starting Lucia 01/06/2024, UntilWed 01/12/2024 at 2359, THEN Starting Wed01/13/2024, Until Wed04/11/2024 at 2359Take 1 tablet (150mg total) by mouth every morning for 7 days, THEN 2 tablets (300 mg total) every morning., Normal - Family Medicine office visit (clinic); Future; Expected date: 01/06/2024 - Family Medicine office visit (clinic); Future; Expected date: 01/13/2024 - cefdinir (Omnicef) 300 mg capsule; Take 1 capsule (300 mg total) by mouth 2 (two) times a day before morning and evening meals., Starting Wed01/06/2024, Normal - doxycycline hyclate (Vibramycin) 100 mg capsule; Take 1 capsule (100 mg total) by mouth 2 (two) times a day., Starting Lucia 01/06/2024, Normal - Family Medicine office visit (clinic); Future; Expected date: 01/06/2024 - SARS-COV-2 (COVID-19) - MODERNA (12 years and older) [id number] Cosigned by Faisal Vogt M.D. at 01/11/2024 8:40 AM CDT * Nissa Mukherjee L.P.N. - 01/06/2024 3:30 [...] st Contact Info) Description 01/19/2024 3:30 PM ATTORNEY Nurse Only Department of Family Medicine, [facility], in [place], [place] [address] [address] Scheduled Orders Name Type Priority Associated Diagnoses [...] CDT) Yes Teodora Horvath R.N. 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, vacuum, laundry 11/09 is doing more but not everyday 11/23 doing that most of the time, ie laundry, clean kitchen, clean bedroom 12/07/18 been gone a lot so hard to do this Engage in social activities Lifestyle On track(2018 1:32 PM CDT) No Teodora Horvath RLiyah Note: Pt will look into attending Senior vitality group at [facility] starting in November 20 went to funerals, talked with another lady she did not know there, doing [employer], swim aerobics, visited her son 11/23/18 went to [employer], going [place] to visit [place], going to [employer] 12/07/18 went [place] mom and went to concert in [place]. Made a new friend. Hemoglobin A1c < 7.0 Result Component 9.9(05/06/19 24 1:03 PM ATTORNEY) No Honey King ROsvaldoN. PHQ-9 Total Score (max 27) < 5 Symptom Management 16( 2:19 PM CDT) No Teodora Horvath RLiliya. documented as of this encounter Procedures Procedure [...] documented as of this encounter Care Teams Multifocal Button Inspector Relationship Specialty Start Date End Date Mich Luevano D.O. [address] [place] [address] PCP - General 09/12/22 documented as of this encounter
--- OUTSIDE RECORDS SUMMARY | 2024-01-15 07:47 | XMS_ITS | Encounter Summary ---
Author Organization [facility] Address [address] [place] [address] Care Team Providers Care Telehealth Nurse Name Role Phone Mich Luevano D.O. Primary Care Pro vider Reason for Visit * Reason Onset Date Comments PandaDoc Form 01/05/2024 Physicians Order Encounter Details Date Type Department Care Team (Latest Contact Info) Description 01/05/2024 Clinical Communication Department of Family Medicine, [facility], in [place], [place] [address] [place] [address] Mich Luevano D.O. [address] [place] [address] PandaDoc Form (Physicians Order) Social History Tobacco Use Types Packs/Day Years Used Date Smoking Tobacco: Never Passive Smoke Exposure: Never Smokeless Tobacco: Never Alcohol Use Standard Drinks/Week Comments Yes 1 (1 standard drink = 0.6 oz pur e alcohol) [facility] Utilities Answer Date Recorded In [...] often do you attend chur ch or buddhist services? More than 4 times per year 06/15/2022 Do you belong to any clubs o r organizations such as restorationist groups, unions, fraternal or athletic groups, or [...] Answer Date Recorded PHQ-2 Score 6 10/05/2023 [facility] [place] of Occupat ional Health - Occupational Stress [...] your living situation today? I have a [facility] place to live 10/17/2023 Education Answer Date Recorded What is the highest level of school you have completed or the highest degree you have received? 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 documented in this encounter Plan of Treatment Upcoming Encounters Date Type Department Care Team (Late st Contact Info) Description 01/19/2024 3:30 PM JOURNALISM INTERN Nurse Only Department of Family Medicine, [facility], in [place], [place] [address], [place] [address] documented as of this encounter Goals Goal Patient Goal Type Associated Problems Recent Progress Patient-Stated? Author Blood Pressure < 140/90 Blood Pressure 138/77(01/05 3:23 PM CDT) No Honey King R.N. Do one productive activity per day General On track(2018 1:31 PM CDT) Yes Teodora Horvath R.N. 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 Note: Pt will look into attending Senior vitality group at [facility] starting in November 20 went to funerals, talked with another lady she did not know there, doing [employer], swim aerobics, visited her son 11/23/18 went to [employer], going [place] to visit relatives, going to [place] 12/07/18 went [place] to visit mom and went to concert in [place]. Made a new friend. Hemoglobin A1c < 7.0 Result Component 9.9(05/06/19 24 1:03 PM JOURNALISM INTERN) No Honey King ROsvaldoN. PHQ-9 Total Score (max 27) < 5 Symptom Management 16( 4 2:19 PM CDT) No Teodora Horvath, R.N. documented as of this encounter Visit Diagnoses Not on filedocumented in this encounter Additional Health Concerns Assessment Noted Time PHQ-9 Depression Total Score: 16 10/04/ 024 2:19 PM CDT documented as of this encounter Care Teams Telehealth Nurse Relationship Specialty Start Date End Date Mich Luevano D.O. [address] [place] [address] PCP - General 09/12/22 documented as of this encounter
--- OUTSIDE RECORDS SUMMARY | 2024-01-15 07:47 | XMS_ITS | Encounter Summary ---
Author Organization [facility] Address [address] [place] [address] Care Team Providers Care Protection Consultant Name Role Phone Mich Luevano D.O. Primary Care Pro vider Reason for Referral * Outpatient (Routine) - Closed Specialty Diagnoses / Procedures Referred By Contac t Referred To Contact Anticoagulation Diagnoses Cardiomyopathy Dilated (HCC) Chronic Systolic (Congestive) Heart Failure (HCC) Thrombus Intracardiac Frog Shaker (Current) Anticoagulant Treatment Monitoring For Therapeutic Drug Therapy Mich Luevano D.O. [address] [place] [address] Phone: tel: fax: [facility] Referral ID Status Reason Start Date Expiration Date Visits Re quested Visits Authorized [id number] Closed 12/15/2023 06/15/2025 1 1 Reason for Visit * Outpatient (Routine) - Closed Specialty Diagnoses / Procedures Referred By Contac t Referred To Contact Anticoagulation Mich Luevano D.O. [address] [place] [address] Phone: tel: fax: [facility] Referral ID Status Reason Start Date Expiration Date Visits Re quested Visits Authorized [id number] Closed 12/08/2023 06/08/2025 1 1 Encounter Details Date Type Department Care Team (Latest Contact Info) Description 12/15/2023 3:00 PM CDT Anticoagulation Visit Department of Anticoagulation in [place], [place] [address] [place] [address] Hailey cardona, Mich Wang D.O. [address] [place] [address] Cardiomyopathy Dilated (HCC) (Primary Dx); Chronic Systolic (Congestive) Heart Failure (HCC); Thrombus Intracardiac; Frog Shaker (Current) Anticoagulant Treatment; Monitoring For Therapeutic Drug Therapy Social History Tobacco Use Types Packs/Day Years Used Date Smoking Tobacco: Never Passive Smoke Exposure: Never Smokeless Tobacco: Never Alcohol Use Standard Drinks/Week Comments Yes 1 (1 standard drink = 0.6 oz pur e alcohol) [facility] [employer] Answer Date Recorded In the past 12 months has [employer] gas, oil, or water [employer] threatened to shut off services in your [...] any clubs o r organizations such as faith groups, unions, fraternal or athletic groups, or [...] Answer Date Recorded PHQ-2 Score 6 10/05/2023 [facility] of Occupat ional Health - Occupational [...] your living situation today? I have a [facility] place to live 10/17/2023 Education Answer Date Recorded What is the highest level of school you have completed or the highest degree you have received? 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 [...] if you start any herbal or other aysc-syk-[id number] product (check with your doctor, a nurse, [...] st Contact Info) Description 01/19/2024 3:30 PM SUPERVISOR PRINTING AND STAMPING Nurse Only Department of Family Medicine, [facility], in [place], [place] [address] [address] Scheduled Referrals Name Type Priority Associated Diagnoses Orde r Schedule Anticoagulation nurse visit (clinic) Outpatient Referral Routine Cardiomyopathy Dilated (HCC) Chronic Systolic (Congestive) Heart Failure (HCC) Thrombus Intracardiac Frog Shaker (Current) Anticoagulant Treatment Monitoring For Therapeutic Drug Therapy Expected: 12/22/2023, Expires: 03/16/2025 documented as of this encounter Goals Goal Patient Goal Type Associated Problems Recent Progress Patient-Stated? Author Blood Pressure < 140/90 Blood Pressure 138/77(01/05 3:23 PM CDT) No Honey King R.N. Do one productive activity per day General On track(2018 1:31 PM CDT) Yes Teodora Horvath ROsvaldoN. 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 Note: Pt will look into attending Senior vitality group at [facility] starting in November 20 went to funerals, talked with another lady she did not know there, doing [employer], swim aerobics, visited her son 11/23/18 went to [employer], going [place] to visit [place], going to [employer] 12/07/18 went [place] to visit mom and went to concert in [place]. Made a new friend. Hemoglobin A1c < 7.0 Result Component 9.9(05/06/19 24 1:03 PM SUPERVISOR PRINTING AND STAMPING) No Honey King ROsvaldoN. PHQ-9 Total Score (max 27) < 5 Symptom Management 16( 4 2:19 PM CDT) No Teodora Horvath ROsvaldoN. documented as of this encounter Procedures Procedure Name Priority Date/Time Associated Diagnosis Comments PROTHROMBIN TIME (PT), P Routine 12/15/2023 documented in this encounter Results * Prothrombin Time (PT) (12/15/2023) EXT INR 1.70 OTHER (SPE CIFY IN BUSINESS AREA DIRECTOR) Blood (Blood, Venous) Narrative Resulting Agency Comment POC by [facility] us Historical Provider LAB BLOOD ADD-ON Final Resul t OTHER (SPECIFY IN BUSINESS AREA DIRECTOR) N/A documented in this encounter Visit Diagnoses Diagnosis Cardiomyopathy Dilated (HCC)- Primary Chronic Systolic (Congestive) Heart Failure (HCC) Thrombus Intracardiac Frog Shaker (Current) Anticoagulant Treatment Monitoring For Therapeutic Drug Therapy documented in this encounter Additional Health Concerns Assessment Noted Time PHQ-9 Depression Total Score: 16 10/04/ 024 2:19 PM CDT documented as of this encounter Care Teams Protection Consultant Relationship Specialty Start Date End Date Mich Luevano D.O. [address] [place] [address] PCP - General 09/12/22 documented as of this encounter
--- OUTSIDE RECORDS SUMMARY | 2024-01-15 07:47 | XMS_ITS | Encounter Summary ---
Author Organization [facility] Address [address] [place] [address] Care Team Providers Care Airdox Fitter Name Role Phone Mich Luevano D.O. Primary Care Pro vider Reason for Visit * Reason Onset Date Comments Med Refill 01/13/2024 Encounter Details Date Type Department Care Team (Late st Contact Info) Description 01/13/2024 Refill Department of Family Medicine, [facility], [place], [place] [address] [place] [phone] Mich Luevano D.O. [address] [place] [address] Med Refill Social History Tobacco Use Types Packs/Day Years Used Date Smoking Tobacco: Never Passive Smoke Exposure: Never Smokeless Tobacco: Never Alcohol Use Standard Drinks/Week Comments Yes 1 (1 standard drink = 0.6 oz pur e alcohol) [facility] Utilities Answer Date Recorded In the past 12 months has e electric, gas, oil, or water [employer] threatened to shut off services in your [...] often do you attend chur ch or zoroastrianism services? More than 4 times per year 06/15/2022 Do you belong to any clubs o r organizations such as yazidism groups, unions, fraternal or athletic groups, or [...] Answer Date Recorded PHQ-2 Score 6 10/05/2023 [facility] of Occupat ional Health - [...] your living situation today? I have a [facility] place to live 10/17/2023 Education Answer Date Recorded What is the highest level of school you have completed or the highest degree you have received? Some college, no degree 09/28/2018 Comments No Sex and Gender Information Value Date Recorded Sex Assigned at Female 09/22/2017 1:45 PM CDT Legal Sex Female 7:19 AM DATA VIRTUALIZATION CONSULTANT Gender Identity Female 09/22/2017 1:45 PM CDT Sexual Orientation Straight 09/22/2017 1: 45 PM CDT documented as of this encounter Miscellaneous Notes * Telephone Encounter - Konrad Lugo D.O. - 01/13/2024 10:47 AM CDT Shouldn't be on this with warfarin. documented in this encounter Plan of Treatment Upcoming Encounters Date Type Department Care Team (Late st Contact Info) Description 01/19/2024 3:30 PM DATA VIRTUALIZATION CONSULTANT Nurse Only Department of Family Medicine, [facility], in [place], [place] [address] [place] [address] documented as of this encounter Goals Goal Patient Goal Type Associated Problems Recent Progress Patient-Stated? Author Blood Pressure < 140/90 Blood Pressure 138/77(01/05 3:23 PM CDT) No Honey King RLiliya. Do one productive activity per day General On track(2018 1:31 PM CDT) Yes Teodora Horvath R.N. 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 Note: Pt will look into attending Senior vitality group at [facility] starting in November 20 went to funerals, talked with another lady she did not know there, doing [employer], swim aerobics, visited her son 11/23/18 went to [employer], going to [place] to visit [place], going to [employer] 12/07/18 went to [place] to visit mom and went to concert in [place]. Made a new friend. Hemoglobin A1c < 7.0 Result Component 9.9(05/06/19 24 1:03 PM DATA VIRTUALIZATION CONSULTANT) No Honey King ROsvaldoN. PHQ-9 Total Score (max 27) < 5 Symptom Management 16( 4 2:19 PM CDT) No Teodora Horvath R.N. documented as of this encounter Visit Diagnoses Diagnosis Colitis Microscopic documented in this encounter Additional Health Concerns Assessment Noted Time PHQ-9 Depression Total Score: 16 10/04/ 024 2:19 PM CDT documented as of this encounter Care Teams Airdox Fitter Relationship Specialty Start Date End Date Mich Luevano D.O. [address] [place] [address] PCP - General 09/12/22 documented as of this encounter
--- OUTSIDE RECORDS SUMMARY | 2024-01-15 07:47 | XMS_ITS | Encounter Summary ---
Author Organization [facility] Address [address] [place] [address] Care Team Providers Care Slumber Room Attendant Name Role Phone Mich Luevano D.O. Primary Care Pro vider Reason for Visit * Reason Onset Date Comments PandaDoc Form 01/13/2024 Order [id number] Encounter Details Date Type Department Care Team (Latest Contact Info) Description 01/13/2024 Clinical Communication Department of Family Medicine, [facility], in [place], [place] [address] [place] [address] Mich Luevano D.O. [address] [place] [address] PandaDoc Form (Order [id number]) Social History Tobacco Use Types Packs/Day Years Used Date Smoking Tobacco: Never Passive Smoke Exposure: Never Smokeless Tobacco: Never Alcohol Use Standard Drinks/Week Comments Yes 1 (1 standard drink = 0.6 oz pur e alcohol) [facility] Utilities Answer Date Recorded In the [...] your living situation today? I have a [facility] place to live 10/17/2023 Education Answer Date Recorded What is the highest level of school you have completed or the highest degree you have received? Some college, no degree 09/28/2018 Comments No Sex and Gender Information Value Date Recorded Sex Assigned at Female 09/22/2017 1:45 PM CDT Legal Sex Female 7:19 AM AGRICULTURE SCIENTIST Gender Identity Female 09/22/2017 1:45 PM CDT Sexual Orientation Straight 09/22/2017 1: 45 PM CDT documented as of this encounter Miscellaneous Notes * Telephone Encounter - Silvia Engel 01/13/2024 3:22 PM CDT Form faxed and scanned to chart. documented in this encounter Plan of Treatment Upcoming Encounters Date Type Department Care Team (Late st Contact Info) Description 01/19/2024 3:30 PM AGRICULTURE SCIENTIST Nurse Only Department of Family Medicine, [facility], in [place], [place] [address] [place] [phone] documented as of this encounter Goals Goal Patient Goal Type Associated Problems Recent Progress Patient-Stated? Author Blood Pressure < 140/90 Blood Pressure 138/77(01/05 3:23 PM CDT) No Honey King RLiliya. Do one productive activity per day General On track(2018 1:31 PM CDT) Yes Teodora Horvath, R.N. 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 Made a new friend. Hemoglobin A1c < 7.0 Result Component 9.9(05/06/19 24 1:03 PM AGRICULTURE SCIENTIST) No Honey King ROsvaldoN. PHQ-9 Total Score [...] End Date Mich Luevano D.O. [address] [place] [phone] PCP - General 09/12/22 documented as of this encounter
--- OUTSIDE RECORDS SUMMARY | 2024-01-15 07:48 | XMS_ITS | Encounter Summary ---
Author Organization [facility] Address [address] [place] [address] Care Team Providers Care Junior Paralegal Name Role Phone Mich Luevano D.O. Primary Care Pro vider Reason for Visit * Reason Onset Date Comments Follow-up 11/19/2023 Appt today Encounter Details Date Type Department Care Team (Latest Contact Info) Description 11/19/2023 Clinical Communication Department of Family Medicine, [facility], in [place], [place] [address] [place] [address] Luis Alfredo Maravilla ROsvaldoN. [address] [place] [phone] Follow-up (Appt today) Social History Tobacco Use [...] How often do you attend chur or mormonism services? More than 4 times per year 06/15/2022 Do you belong to any clubs o r organizations such as rastafarian groups, unions, fraternal or athletic groups, or [...] Answer Date Recorded PHQ-2 Score 6 10/05/2023 [facility] of Occupat ional Health - Occupational Stress [...] your living situation today? I have a [facility] place to live 10/17/2023 Education Answer Date Recorded What is the highest level of school you have completed or the highest degree you have received? Some college, no degree 09/28/2018 Comments No Sex and Gender Information Value Date Recorded Sex Assigned at Female 09/22/2017 1:45 PM CDT Legal Sex Female 7:19 AM BULLET MAKER Gender Identity Female 09/22/2017 1:45 PM CDT [...] a note from the anticoag team at [place] on her visit for today to try [...] Of note, there is an amount of pet care worker stress sensed while talking to Yennifer. Yennifer [...] st Contact Info) Description 01/19/2024 3:30 PM BULLET MAKER Nurse Only Department of Family Medicine, [facility], in [place], [place] [address] [place] [address] documented as of this encounter Goals Goal Patient Goal Type Associated Problems Recent Progress Patient-Stated? Author Blood Pressure < 140/90 Blood Pressure 138/77(01/05 3:23 PM CDT) No Honey King R.N. Do one productive activity per day General On track(2018 1:31 PM CDT) Yes Teodora Horvath R.N. Note: i.e. screed person: clean the kitchen, vacuum, laundry 11/09 is doing more but not everyday 11/23 doing that most of the time, ie laundry, clean kitchen, clean bedroom 12/07/18 been gone a lot so hard to do this Engage in social activities Lifestyle On track(2018 1:32 PM CDT) No Teodora Horvath R.N. Note: Pt will look into attending Senior vitality group at [facility] starting in November 20 went to funerals, talked with another lady she did not know there, doing [employer], swim aerobics, visited her son 11/23/18 went to [employer], going [place] to [place], going to [employer] 12/07/18 went [place] to visit mom and went to concert in [place]. Made a new friend. Hemoglobin A1c < 7.0 Result Component 9.9(05/06/19 24 1:03 PM BULLET MAKER) No Honey King ROsvaldoN. PHQ-9 Total Score (max 27) < 5 Symptom Management 16( 4 2:19 PM CDT) No Teodora Horvath R.N. documented as of this encounter Visit Diagnoses Not on filedocumented in this encounter Additional Health Concerns Assessment Noted Time PHQ-9 Depression Total Score: 16 024 2:19 PM CDT documented as of this encounter Care Teams Junior Paralegal Relationship Specialty Start Date End Date Mich Luevano D.O. [address] [place] [address] PCP - General 09/12/22 documented as of this encounter
--- OUTSIDE RECORDS SUMMARY | 2024-01-15 07:48 | XMS_ITS | Encounter Summary ---
Author Organization [facility] Address [address] [place] [address] Care Team Providers Care Well Drill Operator Cable Tool Name Role Phone Mich Luevano D.O. Primary Care Pro vider Encounter Details Date Type Department Care Team (Late st Contact Info) Description 10/25/2023 Clinical Communication Department of Family Medicine, [place], [place] [address] [place] [phone] Mich Luevano D.O. [address] [place] [phone] Social History Tobacco Use Types Packs/Day Years Used Date Smoking Tobacco: Never Passive Smoke Exposure: Never Smokeless Tobacco: Never Alcohol Use Standard Drinks/Week Comments Yes 1 (1 standard drink = 0.6 oz pur e alcohol) [facility] Utilities Answer Date Recorded In the [...] How often do you attend chur or jehovah's witness services? More than 4 times per year 06/15/2022 Do you belong to any clubs o r organizations such as mandaeism groups, unions, fraternal or athletic groups, or [...] Answer Date Recorded PHQ-2 Score 6 10/05/2023 [facility] [place] of Occupat ional Health - Occupational Stress [...] your living situation today? I have a [facility] place to live 10/17/2023 Education Answer Date Recorded What is the highest level of school you have completed or the highest degree you have received? Some college, no degree 09/28/2018 Comments No Sex and Gender Information Value Date Recorded Sex Assigned at Female 09/22/2017 1:45 PM CDT Legal Sex Female 7:19 AM RN CLINICAL DOCUMENTATION SPECIALIST Gender Identity Female 09/22/2017 1:45 PM [...] Contact Info) Description 01/19/2024 3:30 PM RN CLINICAL DOCUMENTATION SPECIALIST Nurse Only Department of Family Medicine, [facility], in [place], [place] [address] [address] documented as of this encounter Goals Goal Patient Goal Type Associated Problems Recent Progress Patient-Stated? Author Blood Pressure < 140/90 Blood Pressure 138/77(01/05 3:23 PM CDT) No Honey King ROsvaldoN. Do one productive activity per day General On track(2018 1:31 PM CDT) Yes Teodora Horvath ROsvaldoN. 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 Note: Pt will look into attending Senior vitality group at [facility] starting in November 20 went to funerals, talked with another lady she did not know there, doing [employer] swim aerobics, visited her son 11/23/18 went to [employer] [place] to [place], going to [employer] 12/07/18 went [place] to visit mom and went to concert in [place]. Made a new friend. Hemoglobin A1c < 7.0 Result Component 9.9(05/06/19 24 1:03 PM RN CLINICAL DOCUMENTATION SPECIALIST) No Honey King, R.N. PHQ-9 Total Score (max 27) < 5 Symptom Management 16( 4 2:19 PM CDT) No Teodora Horvath, ROsvaldoN. documented as of this encounter Visit Diagnoses Not on filedocumented in this encounter Additional Health Concerns Assessment Noted Time PHQ-9 Depression Total Score: 16 024 2:19 PM CDT documented as of this encounter Care Teams Well Drill Operator Cable Tool Relationship Specialty Start Date End Date Mich Luevano D.O. [address] [place] [phone] PCP - General 09/12/22 documented as of this encounter
--- OUTSIDE RECORDS SUMMARY | 2024-01-15 07:48 | XMS_ITS | Encounter Summary ---
Author Organization [facility] Address [address] [place] [address] Care Team Providers Care Wheel Loader Operator Name Role Phone Mich Luevano D.O. Primary Care Pro vider Reason for Referral * Outpatient (Routine) - Closed Specialty Diagnoses / Procedures Referred By Contac t Referred To Contact Anticoagulation Diagnoses Chronic Systolic (Congestive) Heart Failure (HCC) Thrombus Intracardiac Longterm (Current) Anticoagulant Treatment Mich Luevano D.O. [address] [place] [address] Phone: tel: fax: [facility] Referral ID Status Reason Start Date Expiration Date Visits Re quested Visits Authorized [id number] Closed 12/01/2023 06/01/2025 1 1 Reason for Visit * Outpatient (Routine) - Closed Specialty Diagnoses / Procedures Referred By Contac t Referred To Contact Anticoagulation Mich Luevano D.O. [address] [place] [address] Phone: tel: fax: [facility] Referral ID Status Reason Start Date Expiration Date Visits Re quested Visits Authorized [id number] Closed 11/24/2023 05/25/2025 1 1 Encounter Details Date Type Department Care Team (Latest Contact Info) Description 12/01/2023 1:30 PM CDT Anticoagulation Visit Department of Anticoagulation in [place], [place] [address] [place] [address] Mich Hickman D.O. [address] [place] [address] Chronic Systolic (Congestive) Heart Failure (HCC) (Primary Dx); Cardiomyopathy Dilated (HCC); Thrombus Intracardiac; Longterm (Current) Anticoagulant Treatment; Monitoring For Therapeutic Drug Therapy Social History Tobacco Use Types Packs/Day Years Used Date Smoking Tobacco: Never Passive Smoke Exposure: Never Smokeless Tobacco: Never Alcohol Use Standard Drinks/Week Comments Yes 1 (1 standard drink = 0.6 oz pur e alcohol) [facility] Utilities Answer Date Recorded In the past 12 months has [employer], gas, oil, or water [employer] threatened to shut off services in your [...] week 06/15/2022 How often do you attend [facility] or lutheran services? More than 4 times per year 06/15/2022 Do you belong to any clubs o r organizations such as spiritism groups, unions, fraternal or athletic groups, or [...] Answer Date Recorded PHQ-2 Score 6 10/05/2023 [facility] of Occupat ional Health [...] your living situation today? I have a [facility] place to live 10/17/2023 Education Answer Date Recorded What is the highest level of school you have completed or the highest degree you have received? Some college, no degree 09/28/2018 Comments No Sex and Gender Information Value Date Recorded Sex Assigned at Female 09/22/2017 1:45 PM CDT Legal Sex Female 7:19 AM NETWORK APPLICATIONS SPECIALIST Gender Identity Female 09/22/2017 1:45 PM [...] please call Primary Care Anticoagulation Program at [phone] from 7:30 am to 4:30 pm. Wednesday-Wednesday [...] if you start any herbal or other hyet-ouv-enjvrtz product (check with your doctor, a nurse, [...] st Contact Info) Description 01/19/2024 3:30 PM NETWORK APPLICATIONS SPECIALIST Nurse Only Department of Family Medicine, [facility], in [place], [place] [address] [address] Scheduled Referrals Name Type Priority Associated Diagnoses Orde r Schedule Anticoagulation nurse visit (clinic) Outpatient Referral Routine Chronic Systolic (Congestive) Heart Failure (HCC) Thrombus Intracardiac Longterm (Current) Anticoagulant Treatment Expected: 12/08/2023, Expires: 03/01/2025 documented as of this encounter Goals Goal Patient Goal Type Associated Problems Recent Progress Patient-Stated? Author Blood Pressure < 140/90 Blood Pressure 138/77(01/05 3:23 PM CDT) No Honey King R.N. Do one productive activity per day General On track(2018 1:31 PM CDT) Yes Teodora Horvath RLiayh Note: i.e. public health sanitarian technician: clean the kitchen, vacuum, laundry 11/09 [...] aerobics, visited her son 11/23/18 went to [employer], going [place], going to [employer] 12/07/18 went [place] to visit mom and went to concert in [place]. Made a new friend. Hemoglobin A1c < 7.0 Result Component 9.9(05/06/19 24 1:03 PM NETWORK APPLICATIONS SPECIALIST) No Honey King ROsvaldoN. PHQ-9 Total Score (max 27) < 5 Symptom Management 16( 4 2:19 PM CDT) No Teodora Horvath ROsvaldoN. documented as of this encounter Procedures Procedure Name Priority Date/Time Associated Diagnosis Comments PROTHROMBIN TIME (PT), P Routine 12/01/2023 documented in this encounter Results * Prothrombin Time (PT) (12/01/2023) EXT INR 2.70 OTHER (SPE CIFY IN BERRY PICKER MACHINE OPERATOR) Blood (Blood, Venous) 12/01/2023 us Historical Provider LAB BLOOD ADD-ON Final Resul t OTHER (SPECIFY IN BERRY PICKER MACHINE OPERATOR) N/A documented in this encounter Visit Diagnoses Diagnosis Chronic Systolic (Congestive) Heart Failure (HCC)- Primary Cardiomyopathy Dilated (HCC) Thrombus Intracardiac Longterm (Current) Anticoagulant Treatment Monitoring For Therapeutic Drug Therapy documented in this encounter Additional Health Concerns Assessment Noted Time PHQ-9 Depression Total Score: 16 024 2:19 PM CDT documented as of this encounter Care Teams Wheel Loader Operator Relationship Specialty Start Date End Date Mich Luevano D.O. [address] [place] [address] PCP - General 09/12/22 documented as of this encounter
--- OUTSIDE RECORDS SUMMARY | 2024-01-15 07:48 | XMS_ITS | Encounter Summary ---
Author Organization [facility] Address [address] [place] [address] Care Team Providers Care Cancer Registrar Name Role Phone Mich Luevano D.O. Primary Care Pro vider Reason for Visit * Reason Onset Date Comments Anticoagulation 10/21/2023 Hospital dischar ge, SNF admit Encounter Details Date Type Department Care Team (Latest Contact Info) Description 10/21/2023 Clinical Communication Department of Anticoagulation in [place], [place] [address] [place] [address] Stacey Suero, ROsvladoN. [address] [place] [address] Anticoagulation (Hospital discharge, SNF admit) Social History [...] How often do you attend chur or restorationist services? More than 4 times per year [...] Date Recorded PHQ-2 Score 6 10/05/2023 [facility] [place] of Occupat ional Health - Occupational Stress [...] your living situation today? I have a [facility] place to live 10/17/2023 Education Answer Date Recorded What is the highest level of school you have completed or the highest degree you have received? Some college, no degree 09/28/2018 Comments No Sex and Gender Information Value Date Recorded Sex Assigned at Female 09/22/2017 1:45 PM CDT Legal Sex Female 7:19 AM REGULATORY INTERN Gender Identity Female 09/22/2017 1:45 PM [...] believes daughter has everything set up with [facility] to do POC. Asked when C will [...] 11/19/2023 11:57 AM CDT I talked with [facility] staff today and it was reported that [...] 11/11/2023 2:30 PM CDT Received fax from [facility] with pt's dosing and recheck date. INR is due 11/21. * Telephone Encounter - Nat Montez R.N. - 11/10/2023 1:58 PM CDT Received call from Sophy at [facility]. Pt will be discharging to home 11/11/23 w/homecare assistance. Sophy will fax information w/dosing and recheck date to [facility]. Fax number verified with Sophy. * Telephone Encounter - Isidra Stewart - 10/28/2023 10:25 AM CDT Called and spoke to nurse Sophy at [facility]. No d/c date as of yet. [...] st Contact Info) Description 01/19/2024 3:30 PM REGULATORY INTERN Nurse Only Department of Family Medicine, [facility], in [place], [place] [address] [place] [address] documented as of this encounter Goals Goal Patient Goal Type Associated Problems Recent Progress Patient-Stated? Author Blood Pressure < 140/90 Blood Pressure 138/77(01/05 3:23 PM CDT) No Honey King R.N. 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 Note: Pt will look into attending Senior vitality group at [facility] starting in November 20 went to funerals, talked with another lady she did not know there, doing [employer], swim aerobics, visited her son 11/23/18 went to [employer], [place], going to [employer] 12/07/18 went [place] to visit mom and went to concert in [place]. Made a new friend. Hemoglobin A1c < 7.0 Result Component 9.9(05/06/19 24 1:03 PM REGULATORY INTERN) No Honey King ROsvaldoN. PHQ-9 Total Score (max 27) < 5 Symptom Management 16( 4 2:19 PM CDT) No Teodora Horvath ROsvaldoN. documented as of this encounter Procedures Procedure Name Priority Date/Time Associated Diagnosis Comments PROTHROMBIN TIME (PT), P Routine 10/22/2023 documented in this encounter Results * Prothrombin Time (PT) (10/22/2023) EXT INR 2.20 OTHER (SPE CIFY IN CLEARANCE REP) Blood (Blood, Venous) 10/22/2023 us Historical Provider LAB BLOOD ADD-ON Final Resul t OTHER (SPECIFY IN CLEARANCE REP) N/A documented in this encounter Visit Diagnoses Diagnosis Cardiomyopathy Dilated (HCC)- Primary Chronic Systolic (Congestive) Heart Failure (HCC) Thrombus Intracardiac Fpc (Current) Anticoagulant Treatment Monitoring For Therapeutic Drug Therapy documented in this encounter Additional Health Concerns Assessment Noted Time PHQ-9 Depression Total Score: 16 10/04/ 024 2:19 PM CDT documented as of this encounter Care Teams Cancer Registrar Relationship Specialty Start Date End Date Mich Luevano D.O. [facility] [place] [address] PCP - General 09/12/22 documented as of this encounter
--- OUTSIDE RECORDS SUMMARY | 2024-01-15 07:48 | XMS_ITS | Encounter Summary ---
Author Organization [facility] Address [address] [place] [address] Care Team Providers Care Change Management Specialist Name Role Phone Mich Lueavno D.O. Primary Care Pro vider Encounter Details Date Type Department Care Team (Late st Contact Info) Description 10/20/2023 Clinical Communication Department of Family Medicine, [place], [place] [address] [place] [phone] Mich Luevano D.O. [address] [place] [phone] Social History Tobacco Use Types Packs/Day Years Used Date Smoking Tobacco: Never Passive Smoke Exposure: Never Smokeless Tobacco: Never Alcohol Use Standard Drinks/Week Comments Yes 1 (1 standard drink = 0.6 oz pur e alcohol) [facility] Utilities Answer Date Recorded In the [...] How often do you attend chur or gnosticist services? More than 4 times per year 06/15/2022 Do you belong to any clubs o r organizations such as baptist groups, unions, fraternal or athletic groups, or [...] Recorded PHQ-2 Score 6 10/05/2023 [facility] of Occupat ional Health - Occupational Stress [...] your living situation today? I have a [facility] place to live 10/17/2023 Education Answer Date Recorded What is the highest level of school you have completed or the highest degree you have received? Some college, no degree 09/28/2018 Comments No Sex and Gender Information Value Date Recorded Sex Assigned at Female 09/22/2017 1:45 PM CDT Legal Sex Female 7:19 AM FOREST FIRE PREVENTION MANAGER Gender Identity Female 09/22/2017 1:45 PM CDT Sexual Orientation Straight 09/22/2017 1: 45 PM CDT documented as of this encounter Plan of Treatment Upcoming Encounters Date Type Department Care Team (Late st Contact Info) Description 01/19/2024 3:30 PM FOREST FIRE PREVENTION MANAGER Nurse Only Department of Family Medicine, [facility], in [place], [place] [address] [place] [phone] documented as of this encounter Goals Goal Patient Goal Type Associated Problems Recent Progress Patient-Stated? Author Blood Pressure < 140/90 Blood Pressure 138/77(01/05 3:23 PM CDT) No Honey King R.N. Do one productive activity per day General On track(2018 1:31 PM CDT) Yes Teodora Horvath R.N. 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 Note: Pt will look into attending Senior vitality group at [facility] starting in November 20 went to funerals, talked with another lady she did not know there, doing [employer], swim aerobics, visited her son 11/23/18 went to [employer], going to [place] to visit relatives, going to [employer] 12/07/18 went [place] to visit mom and went to concert in [place]. Made a new friend. Hemoglobin A1c < 7.0 Result Component 9.9(05/06/19 24 1:03 PM FOREST FIRE PREVENTION MANAGER) No Honey King ROsvaldoNOsvaldo PHQ-9 Total Score (max 27) < 5 Symptom Management 16( 4 2:19 PM CDT) No Teodora Horvath RLiyah documented as of this encounter Visit Diagnoses Not on filedocumented in this encounter Additional Health Concerns Assessment Noted Time PHQ-9 Depression Total Score: 16 024 2:19 PM CDT documented as of this encounter Care Teams Change Management Specialist Relationship Specialty Start Date End Date Mich Luevano D.O. [address] [place] [phone] PCP - General 09/12/22 documented as of this encounter
--- OUTSIDE RECORDS SUMMARY | 2024-01-15 07:48 | XMS_ITS | Encounter Summary ---
Author Organization [facility] Address [address] [place] [address] Care Team Providers Care Extension Service Agent Name Role Phone Mich Luevano D.O. Primary Care Pro vider Reason for Visit * Reason Comments Med Refill Encounter Details Date Type Department Care Team (Late st Contact Info) Description 12/06/2023 Refill Department of Family Medicine, [place], [place] [address] [place] [address] Mich Luevano D.O. [address] [place] [phone] Med Refill Social History Tobacco Use Types [...] How often do you attend chur or yarsani services? More than 4 times per year [...] Answer Date Recorded PHQ-2 Score 6 10/05/2023 [facility] [place] of Occupat ional Health - Occupational Stress [...] living situation today? I have a [facility] place to live 10/17/2023 Education Answer Date Recorded What is the highest level of school you have completed or the highest degree you have received? 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 Author Blood Pressure < 140/90 Blood Pressure 138/77(01/05 3:23 PM CDT) No Honey King R.N. 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 Note: Pt will look into attending Senior vitality group at [facility] starting in November 20 went to funerals, talked with another lady she did not know there, doing [employer], swim aerobics, visited her son 11/23/18 went to [employer], going [place] to visit [place], going to [employer] 12/07/18 went [place] to visit mom and went to concert in [place]. Made a new friend. Hemoglobin A1c < 7.0 Result Component 9.9(05/06/19 24 1:03 PM FELLMONGERY WORKER) No Honey King ROsvaldoN. PHQ-9 Total Score (max 27) < 5 Symptom Management 16( 4 2:19 PM CDT) No Teodora Horvath R.N. documented as of this encounter Visit Diagnoses Not on filedocumented in this encounter Additional Health Concerns Assessment Noted Time PHQ-9 Depression Total Score: 16 024 2:19 PM CDT documented as of this encounter Care Teams Extension Service Agent Relationship Specialty Start Date End Date Mich Luevano D.O. [address] [place] [phone] PCP - General 09/12/22 documented as of this encounter
--- OUTSIDE RECORDS SUMMARY | 2024-01-15 07:48 | XMS_ITS | Encounter Summary ---
Author Organization [facility] Address [address] [place] [address] Care Team Providers Care Dam Operator Name Role Phone Mich Luevano D.O. Primary Care Pro vider Reason for Visit * Outpatient (Routine) - Closed Specialty Diagnoses / Procedures Referred By Seven t Referred To Contact Anticoagulation Diagnoses Fpc (Current) Anticoagulant Treatment Thrombus Intracardiac Congestive Heart Failure Ejection Fraction Less Than 35 Percent And [place] Heart Association Class 2-3 (HCC) Monitoring For Therapeutic Drug Therapy Li Riggs D.O. Phone: tel: fax: [facility] Referral ID Status Reason Start Date Expiration Date Visits Re quested Visits Authorized [id number] Closed 05/06/2021 05/06/2022 300 300 Encounter Details Date Type Department Care Team (Latest Contact Info) Description 10/15/2023 10:10 AM CDT Anticoagulation Visit Department of Anticoagulation in [place], [place] [address] [place] [address] Li Riggs D.O. [address] [address] Thrombus Intracardiac (Primary Dx); Cardiomyopathy Dilated (HCC); Chronic Systolic (Congestive) Heart Failure (HCC); Database Engineer (Current) Anticoagulant Treatment; Monitoring For Therapeutic [...] often do you attend chur ch or baptist services? More than 4 times per year [...] Answer Date Recorded PHQ-2 Score 6 10/05/2023 [facility] - Occupational Stress Questionnaire Answer [...] place to sleep or slept in a jail (including now)? No 06/15/2022 Depression Answer Date [...] PM CDT Legal Sex Female 7:19 AM TECHNICIAN SUBMARINE CABLE EQUIPMENT Gender Identity Female 09/22/2017 1:45 PM CDT [...] please call Primary Care Anticoagulation Program at [phone] from 7:30 am to 4:30 pm. Wednesday-Wednesday [...] if you start any herbal or other hlqg-nwo-zjlinyk product (check with your doctor, a nurse, [...] st Contact Info) Description 01/19/2024 3:30 PM TECHNICIAN SUBMARINE CABLE EQUIPMENT Nurse Only Department of Family Medicine, [facility], in [place], [place] [address] [place] [phone] documented as of this encounter Goals Goal Patient Goal Type Associated Problems Recent Progress Patient-Stated? Author Blood Pressure < 140/90 Blood Pressure 138/77(01/05 3:23 PM CDT) No Honey King R.N. 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 Note: Pt will look into attending Senior vitality group at [facility] starting in November 20 went to funerals, talked with another lady she did not know there, doing [employer], swim aerobics, visited her son 11/23/18 went to [employer], going to [place] to visit relatives, going to [employer] 12/07/18 went to [place] to visit mom and went to concert in [place]. Made a new friend. Hemoglobin A1c < 7.0 Result Component 9.9(05/06/19 24 1:03 PM TECHNICIAN SUBMARINE CABLE EQUIPMENT) No Hnoey King R.N. PHQ-9 Total Score (max 27) < 5 Symptom Management 16( 2:19 PM CDT) No Teodora Horvath ROsvaldoN. documented as of this encounter Visit Diagnoses Diagnosis Thrombus Intracardiac- Primary Cardiomyopathy Dilated (HCC) Chronic Systolic (Congestive) Heart Failure (HCC) Database Engineer (Current) Anticoagulant Treatment Monitoring For Therapeutic Drug Therapy documented in this encounter Additional Health Concerns Assessment Noted Time PHQ-9 Depression Total Score: 16 024 2:19 PM CDT documented as of this encounter Care Teams Dam Operator Relationship Specialty Start Date End Date Mich Luevano D.O. [address] [place] [phone] PCP - General 09/12/22 documented as of this encounter
--- OUTSIDE RECORDS SUMMARY | 2024-01-15 07:48 | XMS_ITS | Encounter Summary ---
Author Organization [facility] Address [address] [place] [address] Care Team Providers Care Media Analyst Name Role Phone Mich Luevano D.O. Primary Care Pro vider Reason for Referral * Outpatient (Routine) - Closed Specialty Diagnoses / Procedures Referred By Contac t Referred To Contact Anticoagulation Mich Luevano D.O. [address] [place] [address] Phone: tel: fax: [facility] Referral ID Status Reason Start Date Expiration Date Visits Re quested Visits Authorized [id number] Closed 11/24/2023 05/25/2025 1 1 Reason for Visit * Outpatient (Routine) - Closed Specialty Diagnoses / Procedures Referred By Contac t Referred To Contact Anticoagulation Diagnoses Penitentiary (Current) Anticoagulant Treatment Thrombus Intracardiac Congestive Heart Failure Ejection Fraction Less Than 35 Percent And [place] Heart Association Class 2-3 (HCC) Monitoring For Therapeutic Drug Therapy Li Riggs D.O. Phone: tel: fax: [facility] Referral ID Status Reason Start Date Expiration Date Visits Re quested Visits Authorized [id number] Closed 05/06/2021 05/06/2022 300 300 Encounter Details Date Type Department Care Team (Latest Contact Info) Description 11/24/2023 1:40 PM CDT Anticoagulation Visit Department of Anticoagulation in [place], [place] [address] [place] [address] Li Riggs D.O. [address] [place] [phone] Cardiomyopathy Dilated (HCC) (Primary Dx); Penitentiary (Current) Anticoagulant Treatment; Thrombus Intracardiac; Congestive Heart Failure Ejection Fraction Less Than 35 Percent And [place] Heart Association Class 2-3 (HCC); Monitoring For Therapeutic Drug Therapy; Chronic Systolic (Congestive) Heart Failure (HCC) Social History Tobacco Use Types Packs/Day Years Used Date Smoking Tobacco: Never Passive Smoke Exposure: Never Smokeless Tobacco: Never Alcohol Use Standard Drinks/Week Comments Yes 1 (1 standard drink = 0.6 oz pur e alcohol) [facility] [employer] Answer Date Recorded In the past 12 months has [employer] gas, oil, or water [employer] threatened to shut off services in your [...] week 06/15/2022 How often do you attend [facility] or rastafarian services? More than 4 times per year [...] Answer Date Recorded PHQ-2 Score 6 10/05/2023 [facility] of Occupat ional Health - [...] your living situation today? I have a [facility] place to live 10/17/2023 Education Answer Date Recorded What is the highest level of school you have completed or the highest degree you have received? Some college, no degree 09/28/2018 Comments No Sex and Gender Information Value Date Recorded Sex Assigned at Female 09/22/2017 1:45 PM CDT Legal Sex Female 7:19 AM COOKEE Gender Identity Female 09/22/2017 1:45 PM CDT [...] please call Primary Care Anticoagulation Program at [phone] from 7:30 am to 4:30 pm. Wednesday-Wednesday [...] if you start any herbal or other jrna-agt-iqcpxab product (check with your doctor, a nurse, [...] recommendations and Discharging from Extended Care Facility: [facility] on date-10/19 to 11/11/23 to home. Following [...] in 1 weeks per consult with Anticoagulation [facility]. Pt is on injectable anticoagulant: No. Plan [...] st Contact Info) Description 01/19/2024 3:30 PM COOKEE Nurse Only Department of Family Medicine, [facility], in [place], [place] [address] [phone] Scheduled Referrals Name Type Priority [...] Yes Myhre, Teodora R, R.N. 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 Note: Pt will look into attending Senior vitality group at [facility] starting in November 20 went to funerals, talked with another lady she did not know there, doing [employer], swim aerobics, visited her son 11/23/18 went to [employer], going to [place] to visit [place], going to [employer] 12/07/18 went [place] to visit mom and went to concert in [place]. Made a new friend. Hemoglobin A1c < 7.0 Result Component 9.9(05/06/19 24 1:03 PM COOKEE) No Honey King ROsvaldoN. PHQ-9 Total Score [...] Visit Diagnoses Diagnosis Cardiomyopathy Dilated (HCC)- Primary Penitentiary (Current) Anticoagulant Treatment Thrombus Intracardiac Congestive Heart Failure Ejection Fraction Less Than 35 Percent And [place] Heart Association Class 2-3 (HCC) Monitoring For Therapeutic Drug Therapy Chronic Systolic (Congestive) Heart Failure (HCC) documented in this encounter Additional Health Concerns Assessment Noted Time PHQ-9 Depression Total Score: 16 10/04/ 024 2:19 PM CDT documented as of this encounter Care Teams Media Analyst Relationship Specialty Start Date End Date Mich Luevano D.O. [address] [place] [address] PCP - General 09/12/22 documented as of this encounter
--- OUTSIDE RECORDS SUMMARY | 2024-01-15 07:48 | XMS_ITS | Encounter Summary ---
Author Organization [facility] Address [address] [place] [address] Care Team Providers Care Guardian Family Member Name Role Phone Mich Luevano D.O. Primary Care Pro vider Reason for Visit * Reason Onset Date Comments Order Request 11/19/2023 Encounter Details Date Type Department Care Team (Late st Contact Info) Description 11/19/2023 Clinical Communication Department of Family Medicine, [facility], [place], [place] [address] [place] [address] Mich Luevano D.O. [address] [place] [address] Order Request Social History Tobacco Use Types Packs/Day Years Used Date Smoking Tobacco: Never Passive Smoke Exposure: Never Smokeless Tobacco: Never Alcohol Use Standard Drinks/Week Comments Yes 1 (1 standard drink = 0.6 oz pur e alcohol) [facility] Utilities Answer Date Recorded In the past 12 months has e electric, gas, oil, or water [employer] threatened to shut off services in your [...] often do you attend chur ch or hoahaoism services? More than 4 times per year [...] Answer Date Recorded PHQ-2 Score 6 10/05/2023 [facility] of Occupat ional Health - Occupational Stress [...] your living situation today? I have a [facility] place to live 10/17/2023 Education Answer Date Recorded What is the highest level of school you have completed or the highest degree you have received? Some college, no degree 09/28/2018 Comments No Sex and Gender Information Value Date Recorded Sex Assigned at Female 09/22/2017 1:45 PM CDT Legal Sex Female 7:19 AM DARKLIGHT INSPECTOR Gender Identity Female 09/22/2017 1:45 PM CDT Sexual Orientation Straight 09/22/2017 1: 45 PM CDT documented as of this encounter Miscellaneous Notes * Telephone Encounter - Lily Tucker - 11/24/2023 9:42 AM CDT Form faxed, copy to chart documented in this encounter Plan of Treatment Upcoming Encounters Date Type Department Care Team (Late st Contact Info) Description 01/19/2024 3:30 PM DARKLIGHT INSPECTOR Nurse Only Department of Family Medicine, [facility], in [place], [place] [address] [place] [address] documented as of this encounter Goals Goal Patient Goal Type Associated Problems Recent Progress Patient-Stated? Author Blood Pressure < 140/90 Blood Pressure 138/77(01/05 3:23 PM CDT) No Honey King R.N. 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 Note: Pt will look into attending Senior vitality group at [facility] starting in November 20 went to funerals, talked with another lady she did not know there, doing [employer], swim aerobics, visited her son 11/23/18 went to [employer], going to [place] to visit relatives, going to [employer] 12/07/18 went to [place] to visit mom and went to concert in [place]. Made a new friend. Hemoglobin A1c < 7.0 Result Component 9.9(05/06/19 24 1:03 PM DARKLIGHT INSPECTOR) No Honey King RLiliya. PHQ-9 Total Score (max 27) < 5 Symptom Management 16( 4 2:19 PM CDT) No Teodora Horvath ROsvaldoN. documented as of this encounter Visit Diagnoses Not on filedocumented in this encounter Additional Health Concerns Assessment Noted Time PHQ-9 Depression Total Score: 16 10/04/ 024 2:19 PM CDT documented as of this encounter Care Teams Guardian Family Member Relationship Specialty Start Date End Date Mich Luevano D.O. [address] [place] [address] PCP - General 09/12/22 documented as of this encounter
--- OUTSIDE RECORDS SUMMARY | 2024-01-15 07:48 | XMS_ITS | Encounter Summary ---
Author Organization [facility] Address [address] [place] [address] Care Team Providers Care Oncology Social Worker Name Role Phone Mich Luevano D.O. Primary Care Pro vider Reason for Visit * Reason Onset Date Comments Panda Doc Form 11/24/2023 Order #[id number] Encounter Details Date Type Department Care Team (Latest Contact Info) Description 11/24/2023 Clinical Communication Department of Family Medicine, [facility], [place], [place] [address] [place] [address] Mich Luevano D.O. [address] [place] [address] Panda Doc Form (Order #[id number]) Social History Tobacco Use Types Packs/Day Years Used Date Smoking Tobacco: Never Passive Smoke Exposure: Never Smokeless Tobacco: Never Alcohol Use Standard Drinks/Week Comments Yes 1 (1 standard drink = 0.6 oz pur e alcohol) [facility] Utilities Answer Date Recorded In the [...] any clubs o r organizations such as buddhism groups, unions, fraternal or athletic groups, or [...] Answer Date Recorded PHQ-2 Score 6 10/05/2023 [facility] of Occupat ional Health - Occupational [...] your living situation today? I have a [facility] place to live 10/17/2023 Education Answer Date Recorded What is the highest level of school you have completed or the highest degree you have received? Some college, no degree 09/28/2018 Comments No Sex and Gender Information Value Date Recorded Sex Assigned at Female 09/22/2017 1:45 PM CDT Legal Sex Female 7:19 AM LPN MEDICAL ASSISTANT Gender Identity Female 09/22/2017 1:45 PM CDT Sexual Orientation Straight 09/22/2017 1: 45 PM CDT documented as of this encounter Miscellaneous Notes * Telephone Encounter - Lily Tucker - 11/24/2023 9:50 AM CDT Form faxed, copy to chart documented in this encounter Plan of Treatment Upcoming Encounters Date Type Department Care Team (Late st Contact Info) Description 01/19/2024 3:30 PM LPN MEDICAL ASSISTANT Nurse Only Department of Family Medicine, [facility], in [place], [place] [address], [place] [address] documented as of this encounter Goals Goal Patient Goal Type Associated Problems Recent Progress Patient-Stated? Author Blood Pressure < 140/90 Blood Pressure 138/77(01/05 3:23 PM CDT) No Honey King ROsvaldoN. Do one productive activity per day General On track(2018 1:31 PM CDT) Yes Teodora Horvath R.N. 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 Note: Pt will look into attending Senior vitality group at [facility] starting in November 20 went to funerals, talked with another lady she did not know there, doing [employer], swim aerobics, visited her son 11/23/18 went to [employer], going [place] to visit relatives, going to [employer] 12/07/18 went to [place] to visit mom and went to concert in [place]. Made a new friend. Hemoglobin A1c < 7.0 Result Component 9.9(05/06/19 24 1:03 PM LPN MEDICAL ASSISTANT) No Honey King ROsvaldoN. PHQ-9 Total Score (max 27) < 5 Symptom Management 16( 2:19 PM CDT) No Teodora Horvath, R.N. documented as of this encounter Visit Diagnoses Not on filedocumented in this encounter Additional Health Concerns Assessment Noted Time PHQ-9 Depression Total Score: 16 024 2:19 PM CDT documented as of this encounter Care Teams Oncology Social Worker Relationship Specialty Start Date End Date Mich Luevano D.O. [address] [place] [phone] PCP - General 09/12/22 documented as of this encounter
--- OUTSIDE RECORDS SUMMARY | 2024-01-15 07:48 | XMS_ITS | Encounter Summary ---
Author Organization [facility] Address [address] [place] [address] Care Team Providers Care Input Output Clerk Name Role Phone Mich Luevano D.O. Primary Care Pro vider Reason for Visit * Reason Onset Date Comments Med Question 11/12/2023 Encounter Details Date Type Department Care Team (Late st Contact Info) Description 11/12/2023 Clinical Communication Department of Family Medicine, [facility], [place], [place] [address] [place] [address] Mich Luevano D.O. [address] [place] [address] Med Question Social History Tobacco Use Types Packs/Day Years Used Date Smoking Tobacco: Never Passive Smoke Exposure: Never Smokeless Tobacco: Never Alcohol Use Standard Drinks/Week Comments Yes 1 (1 standard drink = 0.6 oz pur e alcohol) [facility] Utilities Answer Date Recorded In the past 12 months has e electric, gas, oil, or water [employer] threatened to shut off services in your [...] any clubs o r organizations such as taoism groups, unions, fraternal or athletic groups, or [...] Answer Date Recorded PHQ-2 Score 6 10/05/2023 [facility] [place] of Occupat ional Health - Occupational Stress [...] your living situation today? I have a [facility] place to live 10/17/2023 Education Answer Date Recorded What is the highest level of school you have completed or the highest degree you have received? Some college, no degree 09/28/2018 Comments No Sex and Gender Information Value Date Recorded Sex Assigned at Female 09/22/2017 1:45 PM CDT Legal Sex Female 7:19 AM TREATMENT SPECIALIST Gender Identity Female 09/22/2017 1:45 PM [...] most medications have refills available at the [facility] and the prescription should be able to [...] st Contact Info) Description 01/19/2024 3:30 PM TREATMENT SPECIALIST Nurse Only Department of Family Medicine, [facility], in [place], [place] [address] [place] [address] documented as of this encounter Goals Goal Patient Goal Type Associated Problems Recent Progress Patient-Stated? Author Blood Pressure < 140/90 Blood Pressure 138/77(01/05 3:23 PM CDT) No Honey King R.N. Do one productive activity per day General On track(2018 1:31 PM CDT) Yes Teodora Horvath R.N. 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 Made a new friend. Hemoglobin A1c < 7.0 Result Component 9.9(05/06/19 24 1:03 PM TREATMENT SPECIALIST) No Honey King ROsvaldoNOsvaldo PHQ-9 Total Score (max 27) < 5 Symptom Management 16( 4 2:19 PM CDT) No Teodora Horvath R.N. documented as of this encounter Visit Diagnoses Not on filedocumented in this encounter Additional Health Concerns Assessment Noted Time PHQ-9 Depression Total Score: 16 024 2:19 PM CDT documented as of this encounter Care Teams Input Output Clerk Relationship Specialty Start Date End Date Mich Luevano D.O. [address] [facility] [place] [address] PCP - General 09/12/22 documented as of this encounter
--- OUTSIDE RECORDS SUMMARY | 2024-01-15 07:48 | XMS_ITS | Encounter Summary ---
Author Organization [facility] Address [address] [place] [address] Care Team Providers Care Entry Rep Name Role Phone Mich Luevano D.O. Primary Care Pro vider Reason for Visit * Reason Onset Date Comments Order Request 10/19/2023 Encounter Details Date Type Department Care Team (Late st Contact Info) Description 10/19/2023 Clinical Communication Department of Family Medicine, [facility], [place], [place] [address] [place] [address] Mich Luevano D.O. [address] [place] [address] Order Request Social History Tobacco Use Types Packs/Day Years Used Date Smoking Tobacco: Never Passive Smoke Exposure: Never Smokeless Tobacco: Never Alcohol Use Standard Drinks/Week Comments Yes 1 (1 standard drink = 0.6 oz pur e alcohol) [facility] Utilities Answer Date Recorded In the past 12 months has e electric, gas, oil, or water [employer] threatened to shut off services in your [...] often do you attend chur ch or congregational services? More than 4 times per year 06/15/2022 Do you belong to any clubs o r organizations such as druze groups, unions, fraternal or athletic groups, or [...] Answer Date Recorded PHQ-2 Score 6 10/05/2023 [facility] [place] of Occupat ional Health - Occupational Stress [...] your living situation today? I have a [facility] place to live 10/17/2023 Education Answer Date Recorded What is the highest level of school you have completed or the highest degree you have received? Some college, no degree 09/28/2018 Comments No Sex and Gender Information Value Date Recorded Sex Assigned at Female 09/22/2017 1:45 PM CDT Legal Sex Female 7:19 AM INFORMATICS ANALYST Gender Identity Female 09/22/2017 1:45 PM CDT Sexual Orientation Straight 09/22/2017 1: 45 PM CDT documented as of this encounter Plan of Treatment Upcoming Encounters Date Type Department Care Team (Late st Contact Info) Description 01/19/2024 3:30 PM INFORMATICS ANALYST Nurse Only Department of Family Medicine, [facility], in [place], [place] [address] [place] [address] documented as of this encounter Goals Goal Patient Goal Type Associated Problems Recent Progress Patient-Stated? Author Blood Pressure < 140/90 Blood Pressure 138/77(01/05 3:23 PM CDT) No Honey King R.N. Do one productive activity per day General On track(2018 1:31 PM CDT) Yes Teodora Horvath R.N. 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 Made a new friend. Hemoglobin A1c < 7.0 Result Component 9.9(05/06/19 24 1:03 PM INFORMATICS ANALYST) No Honey King ROsvaldoNOsvaldo PHQ-9 Total Score (max 27) < 5 Symptom Management 16( 4 2:19 PM CDT) No Teodora Horvath R.N. documented as of this encounter Visit Diagnoses Not on filedocumented in this encounter Additional Health Concerns Assessment Noted Time PHQ-9 Depression Total Score: 16 024 2:19 PM CDT documented as of this encounter Care Teams Entry Rep Relationship Specialty Start Date End Date Mich Luevano D.O. [address] [place] [address] PCP - General 09/12/22 documented as of this encounter
--- OUTSIDE RECORDS SUMMARY | 2024-01-15 07:48 | XMS_ITS | Encounter Summary ---
Author Organization [facility] Address [address] [place] [address] Care Team Providers Care Field Cane Scaler Helper Name Role Phone Mich Luevano D.O. Primary Care Pro vider Reason for Visit * Reason Comments Fall Encounter Details Date Type Department Care Team (Latest Contact Info) Description 10/17/2023 5:45 AM CDT - 10/20/2023 2:25 PM CDT Hospital Encounter [facility], [facility], [facility], Second Floor [address] [place] [address] [phone] Sonia Lucas M.D., M.S. [address] [place] [address] [phone] Rafa Mayberry M.D., M.P.H. [address] [place] [address] [phone] Aurora Bernal M.D. 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); Cardiomyopathy Dilated (HCC); Chronic Systolic (Congestive) Heart Failure (HCC); Thrombus Intracardiac; Chcf (Current) Anticoagulant Treatment; Monitoring For Therapeutic Drug Therapy; Fracture Rib Multiple Closed Initial Right; Fracture Ilium Avulsion Displaced Closed Initial Left (HCC) Discharge Disposition: [facility] Facility Social History Tobacco Use Types Packs/Day Years Used Date Smoking Tobacco: Never Passive Smoke Exposure: Never Smokeless Tobacco: Never Alcohol Use Standard Drinks/Week Comments Yes 1 (1 standard drink = 0.6 oz pur e alcohol) [facility] Utilities Answer Date Recorded In the past 12 months has e [employer], gas, oil, or water [employer] threatened to shut off services in your [...] often do you attend chur ch or pentecostalism services? More than 4 times per year [...] Recorded PHQ-2 Score 6 10/05/2023 [facility] - [...] your living situation today? I have a [facility] place to live 10/17/2023 Education Answer Date Recorded What is the highest level of school you have completed or the highest degree you have received? 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 * DISCHARGE DISPOSITION [facility] Facility [3] ACTIVE ISSUES REQUIRING FOLLOW UP [...] leg and hip. She presented to the [place] ER via EMS. In the ER she [...] stable during admission and later discharged to [facility] in [facility] 10/20/2023. MEDICATIONS CHANGED DURING THIS HOSPITAL STAY [...] Mrs. Jeanine Montague today and provided counseling [id number] at bedside. I personally spent a total 45 minutes in counseling and discussion with the patient and in coordination of care as described above to facilitate the hospital discharge. Discharge instructions were provided to the patient and caregiver(s). documented in this encounter Discharge Instructions * Discharge Instructions* Jayla Arroyo - 10/18/2023 8:59 AM CDT You were discharged from the [facility] Service. Please identify this service name if you call with questions after hospitalization. * Patient Instructions* Imani Ariza RLiliya. - 10/18/2023 9:27 AM CDT The Senior LinkAge Line?? is a service of the [place] Board on Aging in partnership with [facility] Agencies on Aging. It is a free service of the [facility] that connects older [place] and their families with the help they need. Call the [employer] LinkAge Line?? at: 765.220.2240 M-F, 8am-4:30pm to connect with specialists that are available to assist you with your specific needsor check out their website at [email or web address] * Attachments The following attachments cannot be sent through Care Everywhere. * Heart Failure Self-Care Plan (Tanzanian) * Acute Pain and the Healing Process (Tanzanian) * Oxycodone, Rapid Release (By mouth) (Tanzanian) * Managing Your Oral Anticoagulant Medication: Warfarin (Tanzanian) documented in this encounter Medications at Time [...] Dilated (HCC),Chronic Systolic (Congestive) Heart Failure (HCC),Thrombus Intracardiac,Chcf (Current) Anticoagulant Treatment,Monitori ng For Therapeutic Drug [...] is planning to discharge today, 10/20/23, to [facility] for short-term rehabilitation. Anticipated Needs Functional Status: bathing, dressing, toileting, transfers to/from bed, chair, etc., mobility, mealpreparation, medication setup/administration, housekeeping, shopping, and transportation use (drivecar, use taxi/bus) Assistive Devices: eyeglasses, hearing aid/s, transfer belt, and walker - front wheeled Modifications to home environment: None Transportation: support from family/friends Anticipated discharge destination: [facility] OBJECTIVE Patient was located on [facility] room 121. ASSESSMENT / PLAN Assessment [...] Selected Services Address Phone Fax Patient Preferred [facility] [address] [address] [phone] -- Contact: RN Transportation oxygen: No oxygen [...] - 10/20/2023 9:23 AM CDT Occupational Therapy [facility] Inpatient Treatment SUBJECTIVE Patient's Name: Jeanine Montague Referring/Attending Provider: Aurora Bernal M.D. Reason for Referral: Occupational Therapy Evaluation and Treatment History of Present Illness: Jeanine Montague is a 82 y.o. female who was admitted to [facility] in [place] on 10/17/2023 for History Of Falling [Z91.81]. [...] at or below 17 Clinicians answer the [facility] Inpatient Short Form based on observed [...] L.R.T. - 10/19/2023 7:10 PM CDT 10/19/23 1628 Respiratory Mechanics (Volumes/Pressures) Rib Fracture After Trauma [...] 82 y.o. female who was admitted to [facility] in [place] on 10/17/2023 for History Of Falling [Z91.81] [...] 3-5 steps with a railing?: A Lot [facility] Basic Mobility (V.2) Raw Score: 17 -[facility] Basic Mobility (V.2) Standardized Score: 39.67 Interpretation: Based on scoring guidelines using the raw score value: Those going to home had an average score at or above 18 Those going to facility had an average score at or below 17 Clinicians answer the [facility] Inpatient Short Form based on observed [...] Patient indicated desire to discharge to a snf facility. A list of snf facility options (that they geographically reside or requested) has been provided to and reviewed with patient. Disclaimers: Financial disclosure providedinforming patient of our ownership and financial relationship of the [facility], home health, and hospice agencies. Reviewed Medicare coverage and provided a list of options. OBJECTIVE Patient was sitting up in chair on [facility] room 121. Referrals were sent to the following locations: Destination - Admitted Since 10/17/2023 Service Provider Request Status Selected Services Address Phone Fax Patient Preferred [facility] Pending - Request Sent -- [address] [facility] [phone] -- [facility] Pending - Request Sent -- [address] [address] [phone] -- ASSESSMENT / PLAN ASSESSMENT Food Services Director met with patient to discuss discharge plan. Patient was agreeable to sending referralsfor snf facilities. Patient was provided lists for both [facility] and [facility]. Patient was instructed to highlight the referrals she would like to start sending to and CaseManager will send referrals later today. Patient's daughter, Yennifer, was contacted and updated on the plan. PLAN Patient will provide a list of referrals she is agreeable to start sending to. Food Services Director will continue to follow and send referrals as appropriate. Imani Ariza R.N. 10/19/23 * Denisse Dotson P.A.-C. - 10/19/2023 8:37 AM CDT [facility] Progress Note SUBJECTIVE Mrs. Montague was seen [...] Montague is an 82 y.o. female from [place], [place] hospitalized on [facility] for evaluation and management of left iliac [...] insurance coverage. Canfurther discuss outpatient or obtain [id number] if desired. # Chronic diarrhea - Continue [...] for Safe Activity with the patient. Disposition: [facility] Facility Stable to discharge criteria (not yet met): none The above plan of care was discussed with Dr. Bernal, Family Medicine financial services consultant. Dutch Dotson PA-C [facility] Pager: [phone] I personally spent a total of 35 [...] APRN, C.N.P. - 10/18/2023 9:54 AM CDT [facility] Progress Note SUBJECTIVE Jeanine was seen during [...] / PLAN Ms. Montague is hospitalized on [facility] for evaluation and management of History Of [...] AM CDT * Katherine Higginbotham Pharm.D., R.Ph., [facility] - 10/17/2023 3:51 PM CDT Warfarin Dosing [...] hospital. Shannon Higginbotham PharmD, BCCCP, BCPS Pager: [phone] documented in this encounter H&P Notes * [...] of PT to the bathroom and back. [place] she should not return to her home [...] Ejection Fraction Less Than 35 Percent And Limestone Heart Association Class 2-3 (HCC) #9 Obstructive [...] This is a supervisory note for the [facility] B Service. I saw and evaluated the patient, performed a history and physical exam, and discussed the management with the resident(s)/SOLVENT PLANT OPERATOR-Lali. I reviewed and agree with the admission note of Annabelle Wright APRN TURRET PRESS OPERATOR please see that note for details. I discussed plan of care with the patient who is in agreement. * Annabelle Wright APRN, C.N.P. - 10/17/2023 1:19 PM CDT T [facility] Hospital Admission Note SUBJECTIVE CHIEF COMPLAINT / [...] leg and hip. She presented to the [place] ER. 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 female who was admitted to [facility] in [place] on 10/17/2023 for History Of Falling [Z91.81]. [...] (Maintains balance with handheld assist) Outcome Measures: AM-[facility] Inpatient Short Form: Putting on and [...] at or below 17 Clinicians answer the [facility] Inpatient Short Form based on observed [...] doffing over it last. Recommended adaptive equipment: Electrician'S Assistant, Sock Aid, and Long HandledShoe Horn. Toileting [...] and modification tools as needed including leg timber framer helper and/or bed adjustments. Bathroom DME: - Educated [...] 11 Referral Reason: Discharge Planning Primary Language: Tanzanian Cutter Helper Services Used: No Person(s) present during interview: Person(s) Present During Interview: patient History of Present Illness #1 History Of Falling Social History Support System: children Primary Caregiver: self Finance/Insurance Primary insurance: MEDICARE A AND B Secondary insurance: [facility] [employer] benefits: No Advance Directives Legal Decision Maker: Self Advance Directives: N/A Advance Directives Status: N/A OBJECTIVE Baseline Functional Status Baseline Activities of Daily Living Mobility: Modified independent Dressing: Independent Feeding: Independent Bathing: Independent Grooming: Independent Toileting: Independent Behavior: Appropriate, Pleasant, Calm, Cooperative, Oriented Communication: Can write, Talks, Understands speaking, Understands Tanzanian, Reads Shopping: Independent Medication Management: Independent Housekeeping: [...] Self Care ASSESSMENT / PLAN Assessment: The digital strategist met with Jeanine Montague to discuss her current hospitalization and home going needs. The patient was unaccompanied. The patient was was a reliable historian. The role of digital strategist was reviewed. The patient reviewed her prior level of care and support system. The patient receives support from her children. The patient described her living environment as a single level home with level entry. Housekeeping,grocery shopping, meal prep, and other household responsibilities have previously been completed bypatient. digital strategist discussed the patient's potential needs at dismissal [...] she hires her nephew for lawn and [employer] services and also private hires housekeeping. Due [...] chart and meeting with the patient, the digital strategist deemed the LACE+/readmission questions were not necessary. The patient reports understanding that she will dismiss from the hospital when medically stable. The following potential barriers to dismissal have been identified: DC Barriers: potential HHC Plan: The patient agrees with the following plan. Patient's anticipated discharge disposition is: Home to Self Care vs HHC Transportation upon dismissal will be provided by family--daughter . digital strategist recommended discussing needed assistance with family, friends, or neighbors . digital strategist provided information regarding the dismissal process and the Senior Linkage Line ([place] Board on Aging) handout. digital strategist placed or requested the following hospital-based consult orders and/or referrals: PT/OT. digital strategist will continue to assess for homegoing needs with the interdisciplinary team. digital strategist encouraged the patient to reach out with any questions/concerns. Care Management will continue to follow. Patient to discharge home with home health care. Home Medical Care - Admitted Since 10/17/2023 Service Provider Selected Services Address Phone Fax Patient Preferred [facility] [address] [place] [address] [address], [facility] [phone] -- Cash Accountant: intake NURSING: - Complete documentation in the Discharge Navigator including Nursing Report Info and Facility/NextLevel of Care Info - Call report and arrange for the patient's first visit - Send After Visit Summary and required packet of dismissal information with patient, including advance directive. 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 female who was admitted to [facility] in [place] on 10/17/2023 for History Of Falling [Z91.81]. [...] (Maintains balance with handheld assist) Outcome Measures: -[facility] Inpatient Short Form: AM-[facility] Basic Mobility (V.2) How much help [...] 3-5 steps with a railing?: A Lot AM-[facility] Basic Mobility (V.2) Raw Score: 16 AM-[facility] Basic Mobility (V.2) Standardized Score: 38.32 Interpretation: Based on scoring guidelines using the raw score value: Those going to home had an average score at or above 18 Those going to facility had an average score at or below 17 Clinicians answer the -[facility] Inpatient Short Form based on observed [...] 8:11 AM CDTAssociated Order(s): Orthopedic Surgery consult ([facility]) ORTHOPEDIC SURGERY CONSULT NOTE Today's date: 10/17/2023 Referring Provider - Orthopedic Surgery consult ([facility]) Referring Provider: Mike Patricia M.D. No ref. provider found Primary Team - [facility] C04 -- Jeanine Montague ([phone]) 82 y.o.female Contact: (home) Telephone Information: Occupation: [...] Elbow Closed Initial 03/30/2012 DM Retinopathy Background (FLOOR TILING PROFESSIONAL) 01/25/2004 Dystrophy Fuchs' Endothelial 01/25/2004 Failure Renal [...] RADICAL N/A 03/04/2001 >Left modified radical mastectomy. [place] lymph node biopsy with isotope and dye. [...] 82 y.o. female who [facility] Emergency Department after a ground level fall. [...] Surgery Resident Please contact OTS-2 (Favian) at [phone] with any questions or concerns regarding this patient. If outside of 06:00 - 18:00 on weekdays or any time on the weekend, please contact the [facility] Orthopedic Surgery house resident sap ppm consultant at [phone] Cosigned by Emery Machado M.D. at 10/17/2023 [...] Wednesday, 6am - 6pm, please page the [employer] 2 service at [phone]. On nights and on weekends, please page [facility] at [phone]. For urgent/emergent issues, please page and do not use [employer]. Emery Machado MD Orthopedic Surgery, PGY-V [...] for breakfast and tolerated that movement well [id number]. AVS and medication detail was discussed with [...] care: None End of Shift Summary: Shift [id number]: Goal met this shift. Pt up to [...] AM CDT Care of patient transferred to [place] by oSnia Lucas M.D., M.S. Disposition pending OTS evaluation, [...] week at home. Barbie Mitchell R.N. 10/17/23 4925 * Darius Reeder M.D., M.B.A. - 10/17/2023 [...] stable during admission and later discharged to [facility] in [place], [place] on 10/20/2023. Labs: 10/16 Hgb 10.7 [...] leg and hip. She presented to the [place] ER via EMS. In the ER she [...] stable during admission and later discharged to [facility] 10/20/2023. documented in this encounter Plan of Treatment Upcoming Encounters Date Type Department Care Team (Late st Contact Info) Description 01/19/2024 3:30 PM GEAR MACHINE OPERATOR Nurse Only Department of Family Medicine, [facility], in [place], [place] [address] [place] [phone] documented as of this encounter Goals Goal Patient Goal Type Associated Problems Recent Progress Patient-Stated? Author Blood Pressure < 140/90 Blood Pressure 138/77(01/05 3:23 PM CDT) No Honey King R.N. 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: clean the kitchen, vacuum, laundry 11/09 is doing more but not everyday 11/23 doing that most of the time, ie laundry, clean kitchen, clean bedroom 12/07/18 been gone a lot so hard to do this Engage in social activities Lifestyle On track(2018 1:32 PM CDT) No Teodora Horvath ROsvaldoNOsvaldo Note: Pt will look into attending Senior vitality group at [facility] starting in November 20 went to funerals, talked with another lady she did not know there, doing [employer], swim aerobics, visited her son 11/23/18 went to [employer], going to [place] to visit relatives, going to [employer] 12/07/18 went to [place] visit mom and went to concert in [place]. Made a new friend. Hemoglobin A1c < 7.0 Result Component 9.9(05/06/19 24 1:03 PM GEAR MACHINE OPERATOR) No Honey King ROsvaldoN. PHQ-9 Total [...] ORDERABLES-MANUAL Janet l Result Performing Organization Address City/[facility]/ZIP Co de Phone Number POC [facility] SERVICES [address] [place] [address], [facility] PCLX [facility] POC [address] [place] [address] * (ABNORMAL) Glucose, POCT (10/20/2023 8:34 AM CDT) Glucose, POCT, B 157(H) 70 - 140 mg/dL 10/20/2023 9:08 AM CDT PCLX Site Capillary 10/20/2023 9:08 AM CDT PCLX Last Intake > 4 hours 10/20/2023 9:08 AM CDT PCLX Blood 10/20/2023 8:34 AM CDT 10/20/2023 9:08 AM CDT Unknown Provider LAB POCT ORDERABLES-MANUAL Janet l Result Performing Organization Address [facility] Co de Phone Number POC [facility] [address] [place] [address], [facility] PCLX [facility] POC [address] [place] [address] * (ABNORMAL) Prothrombin Time (PT) (10/20/2023 8:09 [...] P.A.-C. LAB BLOOD ADD-ON Fin al Result [facility] [address] [place] [address], [facility] STMA [facility] [address] [place] [address] * (ABNORMAL) Glucose, POCT (10/19/2023 9:04 PM CDT) Glucose, POCT, B 181(H) 70 - 140 mg/dL 10/19/2023 9:10 PM CDT PCLX Site Capillary 10/19/2023 9:10 PM CDT PCLX Last Intake 2-3 hours 10/19/2023 9:10 PM CDT PCLX Blood 10/19/2023 9:04 PM CDT 10/19/2023 9:10 PM CDT us Unknown Provider LAB POCT ORDERABLES-MANUAL Janet l Result Performing Organization Address City/[facility]/ZIP Co de Phone Number [facility] [address] [place] [address], [facility] PCLX [facility] POC [address] [place] [address] * (ABNORMAL) Glucose, POCT (10/19/2023 5:08 PM CDT) Pathologist [facility] Glucose, POCT, B 223(H) 70 - 140 mg/dL 10/19/2023 5:10 PM CDT PCLX Site Capillary 10/19/2023 5:10 PM CDT PCLX Blood 10/19/2023 5:08 PM CDT 10/19/2023 5:10 PM CDT us Unknown Provider LAB POCT ORDERABLES-MANUAL Janet l Result Performing Organization Address City/[facility]/ZIP Co de Phone Number [facility] [address] [place] [address], [facility] PCLX [facility] POC [address] [place] [address] * (ABNORMAL) Glucose, POCT (10/19/2023 12:47 PM CDT) Glucose, POCT, B 330(H) 70 - 140 mg/dL 10/19/2023 12:49 PM CDT PCLX Site Capillary 10/19/2023 12:49 PM CDT PCLX Last Intake 2-3 hours 10/19/2023 12:49 PM CDT PCLX Blood 10/19/2023 12:4 7 PM CDT 10/19/2023 12:50 PM CDT us Unknown Provider LAB POCT ORDERABLES-MANUAL Janet l Result Performing Organization Address [facility] Co de Phone Number POC [facility] [address] [place] [address], [facility] PCLX [facility] POC [address] [place] [address] * (ABNORMAL) Glucose, POCT (10/19/2023 9:06 AM CDT) Glucose, POCT, B 189(H) 70 - 140 mg/dL 10/19/2023 9:10 AM CDT PCLX Site ARTLINE 10/19/2023 9:10 AM CDT PCLX Last Intake 3-4 hours 10/19/2023 9:10 AM CDT PCLX Blood 10/19/2023 9:06 AM CDT 10/19/2023 9:11 AM CDT us Unknown Provider LAB POCT ORDERABLES-MANUAL Janet l Result Performing Organization Address [facility] Co de Phone Number POC [facility] [address] [place] [address], [facility] PCLX [facility] POC [address] [place] [address] * (ABNORMAL) Prothrombin Time (PT) (10/19/2023 6:00 [...] ADD-ON Janet l Result Performing Organization Address [facility] Co de Phone Number [facility] [address], [place] [address] DTL [facility] [address] [place] [address] * (ABNORMAL) CBC without Differential (10/19/2023 6:00 AM CDT) Pathologist [facility] [place] Hemoglobin 10.4(L) 11.6 - 15.0 g/dL 10/19/2023 [...] ADD-ON Janet l Result Performing Organization Address City/[facility]/ZIP Co de Phone Number [facility] [address] [place] [address], [facility] DTL [facility] [address] [place] [address] * (ABNORMAL) Basic Metabolic Panel (10/19/2023 6:00 AM CDT) [facility] Potassium, S 4.2 3.6 - 5.2 mmol/L [...] C.N.P. LAB BLOOD ADD-ON Janet vik Result [facility] [address] [place] [address], [facility] DTL [facility] [address] [place] [address] * (ABNORMAL) Glucose, POCT (10/19/2023 3:46 AM CDT) Glucose, POCT, B 243(H) 70 - 140 mg/dL 10/19/2023 3:48 AM CDT PCLX Site Capillary 10/19/2023 3:48 AM CDT PCLX Last Intake 1-2 hours 10/19/2023 3:48 AM CDT PCLX Blood 10/19/2023 3:46 AM CDT 10/19/2023 3:48 AM CDT us Unknown Provider LAB POCT ORDERABLES-MANUAL Janet l Result Performing Organization Address [facility] Co de Phone Number [facility] [address] [place] [address], [facility] PCLX [facility] [address] [place] [address] * (ABNORMAL) Glucose, POCT (10/18/2023 11:08 PM CDT) Glucose, POCT, B 297(H) 70 - 140 mg/dL 10/18/2023 11:10 PM CDT PCLX Site Capillary 10/18/2023 11:10 PM CDT PCLX Blood 10/18/2023 11:0 8 PM CDT 10/18/2023 11:10 PM CDT us Unknown Provider LAB POCT ORDERABLES-MANUAL Janet l Result Performing Organization Address [facility]/ZIP Co de Phone Number [facility] [address] [place] [address], [facility] PCLX [facility] [address] [place] [address] * (ABNORMAL) Glucose, POCT (10/18/2023 10:27 PM CDT) Glucose, POCT, B 300(H) 70 - 140 mg/dL 10/18/2023 10:30 PM CDT PCLX Site Capillary 10/18/2023 10:30 PM CDT PCLX Blood 10/18/2023 10:2 7 PM CDT 10/18/2023 10:30 PM CDT us Unknown Provider LAB POCT ORDERABLES-MANUAL Janet l Result Performing Organization Address [facility]/ZIP Co de Phone Number [facility] [address] [place] [address], [facility] PCLX [facility] [address] [place] [address] * (ABNORMAL) Glucose, POCT (10/18/2023 4:52 PM CDT) Glucose, POCT, B 239(H) 70 - 140 mg/dL 10/18/2023 4:59 PM CDT PCLX Site Capillary 10/18/2023 4:59 PM CDT PCLX Last Intake 3-4 hours 10/18/2023 4:59 PM CDT PCLX Blood 10/18/2023 4:52 PM CDT 10/18/2023 5:00 PM CDT us Unknown Provider LAB POCT ORDERABLES-MANUAL Janet l Result Performing Organization Address [facility] Co de Phone Number [facility] [address] [place] [address], [facility] PCLX [facility] [address] [place] [address] * (ABNORMAL) Glucose, POCT (10/18/2023 12:42 PM CDT) Glucose, POCT, B 258(H) 70 - 140 mg/dL 10/18/2023 12:48 PM CDT PCLX Blood 10/18/2023 12:4 2 PM CDT 10/18/2023 12:48 PM CDT us Unknown Provider LAB POCT ORDERABLES-MANUAL Janet l Result Performing Organization Address City/[facility]/ZIP Co de Phone Number [facility] [address] [place] [address], [facility] PCLX [facility] [address] [place] [address] * Glucose, POCT (10/18/2023 8:07 AM CDT) Glucose, POCT, B 136 70 - 140 mg/dL 10/18/2023 8:17 AM CDT PCLX Site Capillary 10/18/2023 8:17 AM CDT PCLX Last Intake 3-4 hours 10/18/2023 8:17 AM CDT PCLX Blood 10/18/2023 8:07 AM CDT 10/18/2023 8:18 AM CDT Unknown Provider LAB POCT ORDERABLES-MANUAL Janet l Result Performing Organization Address [facility] Co de Phone Number [facility] [address] [place] [address], [facility] PCLX [facility] [address] [place] [address] * (ABNORMAL) Prothrombin Time (PT) (10/18/2023 6:56 [...] ADD-ON Janet l Result Performing Organization Address City/[facility] Co de Phone Number [facility] [address] [place] [address], [facility] DTL [facility] [address] [place] [address] * (ABNORMAL) Glucose, POCT (10/17/2023 9:32 PM CDT) Glucose, POCT, B 213(H) 70 - 140 mg/dL 10/17/2023 9:35 PM CDT PCLX Site Capillary 10/17/2023 9:35 PM CDT PCLX Last Intake 3-4 hours 10/17/2023 9:35 PM CDT PCLX Blood 10/17/2023 9:32 PM CDT 10/17/2023 9:35 PM CDT us Unknown Provider LAB POCT ORDERABLES-MANUAL Janet l Result Performing Organization Address [facility] Co de Phone Number [facility] [address] [facility] [address] [place] [address] * (ABNORMAL) Glucose, POCT (10/17/2023 4:24 PM CDT) Glucose, POCT, B 185(H) 70 - 140 mg/dL 10/17/2023 4:28 PM CDT PCLX Site Capillary 10/17/2023 4:28 PM CDT PCLX Blood 10/17/2023 4:24 PM CDT 10/17/2023 4:28 PM CDT us Unknown Provider LAB POCT ORDERABLES-MANUAL Janet l Result Performing Organization Address [facility] Co de Phone Number [facility] [address] [place] [address] [facility] [address] [place] [address] * CT Hip Left without IV Contrast [...] Time (PT) (10/17/2023 6:41 AM CDT) Pathologist [facility] [place] Prothrombin Time, P 23.5(H) 9.4 - 12.5 sec 10/17/2023 6:54 AM CDT [facility] INR 2.1 0.9 - 1.1 10/17/2023 6:54 AM CDT [facility] Comment: ----ADDITIONAL INFORMATION---- Standard intensity warfarin therapeutic range: 2.0 to 3.0 ?? High intensity warfarin therapeutic range: 2.5 to 3.5 Blood (Blood, Venous) 10/17/2023 6:41 AM CDT 10/17/2023 6:46 AM CDT Darius Reeder M.D., M.B.A. LAB BLOOD ADD-ON Janet l Result [facility] [address] [place] [address], [facility] [address] [place] [address] * (ABNORMAL) Basic Metabolic Panel (10/17/2023 6:41 [...] M.B.A. LAB BLOOD ADD-ON Janet l Result [facility] [address] [place] [address], [facility] [address] [place] [address] * (ABNORMAL) Hepatic Function Panel (10/17/2023 6:41 [...] M.B.A. LAB BLOOD ADD-ON Janet l Result [place] [address] [place] [address], [facility] [place] [address] * (ABNORMAL) CBC with Differential, Blood (10/17/2023 [...] M.B.A. LAB BLOOD ADD-ON Janet l Result [facility] [address] [place] [address], [facility] STMA [facility] [address] [place] [address] DHPM [facility] [address] [place] [address] * CT Cervical Spine without IV Contrast [...] Anatomical Region Laterality Modality Head, Neuroradiology [facility] , [facility], [facility]iology [facility] N/A Computed Tomography, Compute d Tomography 10/17/2023 [...] CDT) Ventricular Rate ECG/Min 75 BPM MUSE ME Interval 178 ms MUSE QRSD Interval 156 ms MUSE QT Interval 470 ms MUSE QTC Interval 524 ms MUSE P Minden 57 degrees MUSE R Mind[place] -8 degrees MUSE T Wave Mind[place] 23 degrees MUSE 10/17/2023 5:52 AM CDT 10/17/2023 2:17 PM CDT Impressions MUSE - 10/17/2023 5:55 AM CDT Normal sinus rhythm Right bundle branch block Cannot rule out Inferior infarct Nonspecific ST and T wave abnormality Prolonged QT When compared with ECG of 11-Apr-2021 16:21, ME interval has decreased QT has lengthened Reviewed by KENYON Eugene Narrative Procedure Note Javan Driscoll M.D. - 10/17/2023 IMPRESSION: Normal sinus rhythm Right bundle branch block Cannot rule out Inferior infarct Nonspecific ST and T wave abnormality Prolonged QT When compared with ECG of 11-Apr-2021 16:21, ME interval has decreased QT has lengthened Reviewed [...] Systolic (Congestive) Heart Failure (HCC) Thrombus Intracardiac Chcf (Current) Anticoagulant Treatment Monitoring For Therapeutic Drug Therapy Fracture Rib Multiple Closed Initial Right Fracture Ilium Avulsion Displaced Closed Initial Left (HCC) History Of Falling Fracture Rib Multiple Closed Initial Right Cardiomyopathy Dilated (HCC) Acute On Chronic Systolic (Congestive) Heart Failure (HCC) Congestive Heart Failure Ejection Fraction Less Than 35 Percent And [place] Heart Association Class 2-3 (HCC) Chronic Systolic [...] Krueger R.N.) 1140 (Given - Provider: Noah Micntosh R.N.)1341 (Not Given - Provider: Marry Maurer [...] for each administration. 0838 (Given - Provider: eDja Hassan R.N.) NaCl 0.9% infusion 1-999 mL/hr, [...] documented as of this encounter Care Teams Field Cane Scaler Helper Relationship Specialty Start Date End Date Mich Luevano, DOsvaldoOOsvaldo [address] [place] [address] PCP - General 09/12/22 documented as of this encounter
--- OUTSIDE RECORDS SUMMARY | 2024-01-15 07:48 | XMS_ITS | Encounter Summary ---
Author Organization [facility] Address [address] [place] [address] Care Team Providers Care Dandy Tender Name Role Phone Mich Luevano D.O. Primary Care Pro vider Reason for Visit * Reason Onset Date Comments PandaDoc Form 12/06/2023 Order [id number] Encounter Details Date Type Department Care Team (Latest Contact Info) Description 12/06/2023 Clinical Communication Department of Family Medicine, [facility], in [place], [place] [address] [place] [address] Mich Luevano D.O. [address] [place] [address] PandaDoc Form (Order [id number]) Social History Tobacco Use Types Packs/Day Years Used Date Smoking Tobacco: Never Passive Smoke Exposure: Never Smokeless Tobacco: Never Alcohol Use Standard Drinks/Week Comments Yes 1 (1 standard drink = 0.6 oz pur e alcohol) [facility] Utilities Answer Date Recorded In the [...] often do you attend chur ch or rastafarian services? More than 4 times [...] Answer Date Recorded PHQ-2 Score 6 10/05/2023 [facility] - Occupational Stress [...] your living situation today? I have a [facility] place to live 10/17/2023 Education Answer Date Recorded What is the highest level of school you have completed or the highest degree you have received? Some college, no degree 09/28/2018 Comments No Sex and Gender Information Value Date Recorded Sex Assigned at Female 09/22/2017 1:45 PM CDT Legal Sex Female 7:19 AM LEAD OPERATOR Gender Identity Female 09/22/2017 1:45 PM CDT Sexual Orientation Straight 09/22/2017 1: 45 PM CDT documented as of this encounter Miscellaneous Notes * Telephone Encounter - Lily Tucker - 12/06/2023 2:44 PM CDT Form faxed, copy to chart documented in this encounter Plan of Treatment Upcoming Encounters Date Type Department Care Team (Late st Contact Info) Description 01/19/2024 3:30 PM LEAD OPERATOR Nurse Only Department of Family Medicine, [facility], in [place], [place] [address] [place] [phone] documented as of this encounter Goals Goal Patient Goal Type Associated Problems Recent Progress Patient-Stated? Author Blood Pressure < 140/90 Blood Pressure 138/77(01/05 3:23 PM CDT) No Honey King RLiliya. Do one productive activity per day General On track(2018 1:31 PM CDT) Yes Teodora Horvath, R.N. 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 Made a new friend. Hemoglobin A1c < 7.0 Result Component 9.9(05/06/19 24 1:03 PM LEAD OPERATOR) No Honey King ROsvaldoN. PHQ-9 Total Score (max 27) < 5 Symptom Management 16( 2:19 PM CDT) No Teodora Horvath, R.N. documented as of this encounter Visit Diagnoses Not on filedocumented in this encounter Additional Health Concerns Assessment Noted Time PHQ-9 Depression Total Score: 16 10/04/ 024 2:19 PM CDT documented as of this encounter Care Teams Dandy Tender Relationship Specialty Start Date End Date Mich Luevano D.O. [address] [place] [phone] PCP - General 09/12/22 documented as of this encounter
--- OUTSIDE RECORDS SUMMARY | 2024-01-15 07:49 | XMS_ITS | Encounter Summary ---
Author Organization [facility] Address [address] [place] [address] Care Team Providers Care Occupational Rehabilitation Aide Name Role Phone Mich Luevano D.O. Primary [...] PM CDT Legal Sex Female 7:19 AM FACULTY DEAN Gender Identity Female 09/22/2017 1:45 PM CDT [...] - mild CDM Reports - EYEGEN Id: [id number] Status: Fnl documented in this encounter Plan of Treatment Upcoming Encounters Date Type Department Care Team (Late st Contact Info) Description 01/19/2024 3:30 PM FACULTY DEAN Nurse Only Department of Family Medicine, [facility], in [place], [place] [address], [place] [phone] documented as of this encounter Visit Diagnoses Not on filedocumented in this encounter Additional Health Concerns Infection Onset Date Last Indicated Resolved Time COVID19 Pending 09/05/2020 09/05/2020 09/05/2020 6 :27 PM CDT COVID19 Pending 10/23/2020 10/23/2020 10/23/2020 1 1:52 PM CDT COVID19 Pending 03/25/2022 03/25/2022 03/26/2022 2 :00 PM FACULTY DEAN documented as of this encounter Care Teams Occupational Rehabilitation Aide Relationship Specialty Start Date End Date Mich Luevano D.OOsvaldo [address] [place] [address] PCP - General 09/12/22 documented as of this encounter
--- OUTSIDE RECORDS SUMMARY | 2024-01-15 07:49 | XMS_ITS | Encounter Summary ---
Author Organization [facility] Address [address] [place] [address] Care Team Providers Care Filter Assembler Name Role Phone Mich Luevano D.O. Primary [...] PM CDT Legal Sex Female 7:19 AM INSPECTOR PRECISION Gender Identity Female 09/22/2017 1:45 PM CDT [...] diabetic retinopathy CDM Reports - EYEGEN Id: [id number] Status: Fnl documented in this encounter Plan of Treatment Upcoming Encounters Date Type Department Care Team (Late st Contact Info) Description 01/19/2024 3:30 PM INSPECTOR PRECISION Nurse Only Department of Family Medicine, [facility], in [place], [place] [address] [place] [phone] documented as of this encounter Visit Diagnoses Not on filedocumented in this encounter Additional Health Concerns Infection Onset Date Last Indicated Resolved Time COVID19 Pending 09/05/2020 09/05/2020 09/05/2020 6 :27 PM CDT COVID19 Pending 10/23/2020 10/23/2020 10/23/2020 1 1:52 PM CDT COVID19 Pending 03/25/2022 03/25/2022 03/26/2022 2 :00 PM INSPECTOR PRECISION documented as of this encounter Care Teams Filter Assembler Relationship Specialty Start Date End Date Mich Luevano D.O. [address] [place] [address] PCP - General 09/12/22 documented as of this encounter
--- OUTSIDE RECORDS SUMMARY | 2024-01-15 07:49 | XMS_ITS | Encounter Summary ---
Author Organization [facility] Address [address] [place] [address] Care Team Providers Care Bench Hand Name Role Phone Mich Luevano D.O. Primary Care Pro vider Encounter Details Date Type Department Care Team (Latest Contact Info) Description 10/15/2023 9:30 AM CDT - 10/15/2023 11:59 PM CDT Hospital Encounter Department of Laboratory Medicine in [place], [place] [address] [place] [address] Mich Luevano D.O. [address] [place] [phone] Custodial (Current) Anticoagulant Treatment; Thrombus Intracardiac; Congestive Heart Failure Ejection Fraction Less Than 35 Percent And [place] Heart Association Class 2-3 (HCC); Monitoring For [...] often do you attend chur ch or religion services? More than 4 times per year [...] Answer Date Recorded PHQ-2 Score 6 10/05/2023 [facility] - [...] PM CDT Legal Sex Female 7:19 AM BENCH ASSEMBLER ELECTRICAL Gender Identity Female 09/22/2017 1:45 PM CDT [...] Dilated (HCC),Chronic Systolic (Congestive) Heart Failure (HCC),Thrombus Intracardiac,Custodial (Current) Anticoagulant Treatment,Monitori ng For Therapeutic Drug Therapy Please take as directed by your Anticoagulation Clinic. 112 tablet 3 4 10/20/19 24 documented as of this encounter Plan of Treatment Upcoming Encounters Date Type Department Care Team (Late st Contact Info) Description 01/19/2024 3:30 PM BENCH ASSEMBLER ELECTRICAL Nurse Only Department of Family Medicine, [facility], in [place], [place] [address] [place] [phone] documented as of this encounter Goals Goal Patient Goal Type Associated Problems Recent Progress Patient-Stated? Author Blood Pressure < 140/90 Blood Pressure 138/77(01/05 3:23 PM CDT) No Honey King ROsvaldoN. Do one productive activity per day General On track(2018 1:31 PM CDT) Yes Teodora Horvath, R.N. 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 Note: Pt will look into attending Senior vitality group at [facility] starting in November 20 went to funerals, talked with another lady she did not know there, doing swinging [employer], swim aerobics, visited her son 11/23/18 went to [employer], going to [place] to visit relatives, going to [employer] 12/07/18 went [place] to visit mom and went to concert in [place]. Made a new friend. Hemoglobin A1c < 7.0 Result Component 9.9(05/06/19 24 1:03 PM BENCH ASSEMBLER ELECTRICAL) No Honey King ROsvaldoN. PHQ-9 Total Score (max 27) < 5 Symptom Management 16( 4 2:19 PM CDT) No Teodora Horvath R.N. documented as of this encounter Procedures Procedure Name Priority Date/Time Associated Diagnosis Comments INR REFLEX, POCT, B Routine 10/15/2023 10:59 AM CDT Industrial Hygenist (Current) Anticoagulant Treatment Thrombus Intracardiac Congestive Heart Failure Ejection Fraction Less Than 35 Percent And [place] Heart Association Class 2-3 (HCC) Monitoring For [...] POCT ORDERABL ES - DEVICE Final Result [facility] [address] [place] [address], [facility] [address] [place] [address] documented in this encounter Visit Diagnoses Diagnosis Industrial Hygenist (Current) Anticoagulant Treatment Thrombus Intracardiac Congestive Heart Failure Ejection Fraction Less Than 35 Percent And [place] Heart Association Class 2-3 (HCC) Monitoring For Therapeutic Drug Therapy Cardiomyopathy Dilated (HCC) Chronic Systolic (Congestive) Heart Failure (HCC) documented in this encounter Additional Health Concerns Assessment Noted Time PHQ-9 Depression Total Score: 16 10/04/ 024 2:19 PM CDT documented as of this encounter Care Teams Bench Hand Relationship Specialty Start Date End Date Mich Luevano D.O. [address] [place] [phone] PCP - General 09/12/22 documented as of this encounter
== END 2024-01-11 02:46 | disposition home or self-care (01) ==
LOC: AMB 01-15 07:43
PROVIDERS: Visit Provider Family Medicine
DX: R42 Dizziness and giddiness (principal); I45.10 Unspecified right bundle-branch block
CPT/HCPCS: A0425; A0427

== ENCOUNTER 2024-01-11 03:33 | Inpatient (IN) | payer OTHER, MEDICARE, SELFPAY ==
[2024-01-11] VITALS (31 sets, daily range): BP systolic 102–146; BP diastolic 57–91; PULSE 80–134; RESP 16–18; TEMP 36.6–36.8; O2SAT 92–100; BMI 33.8; BMI 34.6
--- NOTE | 2024-01-11 03:53 | ED.GENADULT ---
HPI - General Adult General Chief complaint: Fall/Minor Trauma Stated complaint: fall,dizziness Time Seen by Provider: 01/11/24 03:49 Source: patient, family and EMS Mode of arrival: EMS History of Present Illness HPI narrative: 83-year-old female presents the emergency department with 2 falls tonight. Unprovoked, mechanical sounding in nature. Denies loss of consciousness. But patient does not remember falling necessary early which is suspicious. Currently living with her daughter which sounds like a new arrangement. Unfortunately, patient is not a very good historian. She cannot list her medications, gets confused on days in timing. It sounds as though this is why she has relocated to live with her daughter recently. Son is here and is trying his best to help fill in the gaps and texting daughter for information. Patient primary care team is through [facility]. It sounds like she had a doctor's visit last which is 6 days ago. She was started on doxycycline for an infection in her groin. There was some confusion an argument between them whether this was or Wednesday. Patient also figured out that her bupropion prescription was written to take 3 of the 150 mg extended release tablets per day and she had only been taking 1 tablet. Upon realizing this, she began taking 3 tablets again suddenly. It had been a very long time since she had been doing this. It does not sound as though that has been going well and she has been feeling dizzy ever since. There is some confusion if she was dizzy prior to this happening or after. It certainly sounds as though she started becoming weaker after taking 3 of those tablets at a time. Reports that this was done for her depression. Unfortunately, the office visit from is still not completed despite being 6-day-old and we cannot tell from this discussion of the rationale of the rapid increase in an elderly patient. Patient denies any chest pain or shortness of breath. She does state that she has a history of congestive heart failure. No in can tell me her last echo or ejection fraction. She is anticoagulated on Coumadin ?for her heart?. I do not know if this is from a history of AFib or cardiomyopathy. When I asked for clarification, no one can tell me this. We have some limited records from [facility] but unfortunately, they are in ?book form? which means each encounter is about 90 pages, most of which is not clinically relevant and not searchable. Patient has a little bit of right hip pain after her fall, denies pain in her back, neck. Denies hitting her head. She was able to get herself up after her falls. Reports that she did ?scoot around on her butt? for a while though. Details are again unclear. No recent fever. Reports a skin lesion in the left groin area, cannot tell me how long it has been there possibly up to 3 weeks. For this she was started on the doxycycline. Denies that this was drained at her clinic visit, again the notes are not completed. She has noticed some drainage from it. No dysuria, no unusual vaginal discharge, no bloody stools. Her answers are quite vague and she is not an ideal historian. She was hospitalized at [facility] in July for recurrent falls and was found to have what sounds like a slight nondisplaced pelvic fracture and also degenerative changes noted in the brain. Past medical history is difficult to find out. Reported history of diabetes, cardiomyopathy, unknown ejection fraction. It sounds like she has had stents, it sounds cardiac per her description but she cannot tell me when they were placed. Recent skin infection in the groin area, details are also vague. Nurses are still compiling a list of her medications. It is clear that she may not be taking them exactly as prescribed either based on the fact that she recently had only been taking a 3rd of her prescribed dose of bupropion and rapidly increased that to extremely high levels. She does not smoke, she now lives with her daughter. Denies alcohol intake. ROS is notable for the generalized, skin and neurological changes as above, otherwise denies times 12 systems. Related Data Home Medications ?Medication ?Instructions ?Recorded ?Confirmed aspirin 81 mg capsule 81 mg PO DAILY 01/11/24 01/11/24 budesonide 3 mg 6 mg PO DAILY 01/11/24 01/11/24 capsule,delayed,extended release bupropion HCl 150 mg 24 hr tablet, 300 mg PO .QD 01/11/24 01/11/24 extended release cefdinir 300 mg capsule 300 mg PO 01/11/24 doxycycline hyclate 100 mg capsule 100 mg PO BID 01/11/24 01/11/24 metformin 500 mg tablet,extended 1,000 mg PO BID 01/11/24 01/11/24 release 24 hr metoprolol succinate 25 mg 25 mg PO DAILY 01/11/24 01/11/24 tablet,extended release 24 hr rosuvastatin 20 mg tablet 20 mg PO DAILY 01/11/24 01/11/24 trazodone 50 mg tablet 50 mg PO QPM PRN insomnia 01/11/24 01/11/24 valsartan 40 mg tablet 20 mg PO BID 01/11/24 01/11/24 warfarin 2 mg tablet PO 01/11/24 Allergies Allergy/AdvReac Type Severity Reaction Status Date / Time No Known Drug Allergies Allergy Verified 01/11/24 06:26 [facility] Medical History Prolonged QT interval ?R94.31 - Abnormal electrocardiogram [ECG] [EKG] (ICD-10) Hypertension ?I10 - Essential (primary) hypertension (ICD-10) CKD (chronic kidney disease) ?N18.9 - Chronic kidney disease, unspecified (ICD-10) History of falling ?Z91.81 - History of falling (ICD-10) VIOLET (obstructive sleep apnea) ?G47.33 - Obstructive sleep apnea (adult) (pediatric) (ICD-10) Diabetes mellitus, type 2 ?E11.9 - Type 2 diabetes mellitus without complications (ICD-10) CHF (congestive heart failure) ?I50.9 - Heart failure, unspecified (ICD-10) Cardiomyopathy ?I42.9 - Cardiomyopathy, unspecified (ICD-10) Social History Smoking Status: Never smoker Do you use any of these nicotine containing products: None How often do you have a drink containing alcohol: monthly or less How many standard drinks containing alcohol do you have on a typical day: 1 or 2 How often do you have six or more drinks on one occasion: Never AUDIT-C Alcohol total score: 1 Non-prescribed substance use: denies use Exam Const: Vital Signs, click to edit/add: Vital Signs - 24 hr 01/11/24 03:39 01/11/24 04:07 01/11/24 04:10 Temperature 97.8 F Pulse Rate 119 H 121 H Pulse Rate [Pulse Oximeter] 134 H Respiratory Rate 16 Blood Pressure Blood Pressure [Ri ght Upper Arm] 102/72 Pulse Oximetry 98 97 95 Oxygen Delivery Me thod Room Air Oxygen Flow Rate 01/11/24 04:12 01/11/24 04:17 01/11/24 04:26 Temperature Pulse Rate 117 H Pulse Rate [Pulse Oximeter] 122 H Respiratory Rate 16 Blood Pressure 134/91 H Blood Pressure [Ri ght Upper Arm] 136/77 Pulse Oximetry 97 92 Oxygen Delivery Me thod Room Air Oxygen Flow Rate 01/11/24 04:30 01/11/24 04:31 01/11/24 04:32 Temperature Pulse Rate 119 H 120 H 119 H Pulse Rate [Pulse Oximeter] Respiratory Rate 18 Blood Pressure 135/88 Blood Pressure [Ri ght Upper Arm] Pulse Oximetry 95 92 92 Oxygen Delivery Me thod Oxygen Flow Rate 01/11/24 04:55 01/11/24 05:52 01/11/24 05:58 Temperature Pulse Rate 123 H 114 H Pulse Rate [Pulse Oximeter] Respiratory Rate Blood Pressure 140/60 H Blood Pressure [Ri ght Upper Arm] Pulse Oximetry 96 93 99 Oxygen Delivery Me thod Nasal Cannula Oxygen Flow Rate 2 01/11/24 06:00 01/11/24 06:10 01/11/24 06:20 Temperature Pulse Rate 113 H 113 H 113 H Pulse Rate [Pulse Oximeter] Respiratory Rate Blood Pressure Blood Pressure [Ri ght Upper Arm] Pulse Oximetry 99 99 98 Oxygen Delivery Me thod Oxygen Flow Rate 01/11/24 06:30 01/11/24 06:51 01/11/24 06:53 Temperature Pulse Rate 111 H 118 H 117 H Pulse Rate [Pulse Oximeter] Respiratory Rate Blood Pressure 122/63 Blood Pressure [Ri ght Upper Arm] Pulse Oximetry 97 99 94 Oxygen Delivery Me thod Oxygen Flow Rate 01/11/24 07:00 01/11/24 07:10 01/11/24 07:20 Temperature Pulse Rate 110 H 105 H 110 H Pulse Rate [Pulse Oximeter] Respiratory Rate Blood Pressure Blood Pressure [Ri ght Upper Arm] Pulse Oximetry 99 99 100 Oxygen Delivery Me thod Oxygen Flow Rate 01/11/24 07:30 01/11/24 07:50 01/11/24 07:50 Temperature Pulse Rate 114 H Pulse Rate [Pulse Oximeter] Respiratory Rate Blood Pressure Blood Pressure [Ri ght Upper Arm] Pulse Oximetry 99 98 98 Oxygen Delivery Me thod Nasal Cannula Oxygen Flow Rate 2 Documenting provider has reviewed patient's vital signs: yes Common normals: no apparent distress and alert General appearance: well kempt Other: Poor historian but polite and cooperative. HENMT: Common normals: normocephalic Head and scalp: normocephalic Face and sinus: normal facial exam Mouth: oral and palatal mucosa normal Throat: posterior oropharynx normal Eye: Common normals: EOMs intact bilaterally and conjunctivae normal General eye: normal appearance of both eyes Conjunctiva: conjunctiva(e) normal Neck & C-Spine: Common normals: full ROM and no lymphadenopathy Cervical spine: cervical ROM normal Chest: Common normals: inspection of chest normal Resp: Common normals: normal respiratory effort, no use of accessory muscles and clear to auscultation bilaterally Effort & inspection: able to speak in complete sentences Auscultation: clear to auscultation bilaterally Cardio: Common normals: regular rate and regular rhythm Rate: regular rate Rhythm: regular rhythm Other: Holosystolic murmur noted. Tachycardic in the 120s therefore it is difficult to tell if it is irregular. GI: Common normals: Normal to inspection, nondistended, normoactive bowel sounds present, soft to palpation, non-tender, no hepatosplenomegaly and no masses Palpation: soft and no hepatosplenomegaly : Other: Carbuncle of the left inguinal area with some tracking and tunneling noted. Slight serous drainage but no blood or purulent drainage currently. Back & Pelvis: Common normals: thoracic and lumbar spine normal to inspection Extremity: Common normals: normal to inspection, normal capillary refill and no pedal edema Other: Able to move both hips for me and sit up without assistance. Neuro: Sensorium/orientation: alert Speech: speech normal Motor exam: strength 5/5 throughout and no movement abnormalities noted Psych: Appearance: well kempt Activity/motor behavior: appropriate eye contact Insight: limited Judgement: fair Skin: Common normals: no rashes or lesions noted Narrative: Skin bruising, seem secondary to Coumadin in various stages, does not seem to have any new open lacerations from falls. General skin exam: no rashes or lesions noted Course Course ED Course: 83-year-old female with multiple falls and dizziness in the setting of recent cyst in the groin, antibiotic starting and rapid titration of the buproprion. The rapid titration of but be appropriate in certainly would explain dizziness and would contribute to falls but there could be sepsis, acute cardiac process, worsening congestive heart failure, arrhythmia, electrolyte abnormality, kidney strain, multiple other etiologies at work here as well. There also could be a new viral infection like COVID her influenza. Will obtain typical labs including lactate, CPK, electrolytes, cardiac labs, EKG. Initial tachycardia noted, uncertain if this is her baseline with her cardiomyopathy or not. I do not know if she is taking any beta blockers. Will x-ray the right hip that she is complaining of pain in and also get a chest x-ray. Will give 500 mL of IV fluid. Await findings. Will likely need hospitalization. Highly suspicious of a polypharmacy reaction but this is very difficult to sort out since we have limited records, she cannot recall her medications and I do not suspect that what she is taking is accurately reflected on her pill bottles. Reevaluation(s) Time of Reevaluation #1: 06:25 Reevaluation #1: Updated family on findings thus far. Labs is suggestive of infection and sepsis. Lactate is elevated probably from infection but also due to metformin causing additional lactic acidosis most likely. Source of infection is unclear. I had initially been most suspicious that this groin infection could be connected to an abscess but the CT really does not show 1. This is great. The CT does show a very distended gallbladder and I can actually see a halo of fluid superiorly that is suspicious for wall thickening. I think this may be an acute cholecystitis. With significant delays in imaging. Was nearly an hour and a half that she was over in x-ray and CT. This delayed her fluids. Second lactate may not reflect the full amount of fluid given. I initially gave 500 and then reassessed. There is no increased hypoxia or respiratory distress, therefore will give another 500 mL. This is below the typical bolus given in sepsis due to patient's congestive heart failure history. This was done with careful planning and thought. Will need to give the fluids more slowly especially since we do not have a clear basis of her cardiac status an ejection fraction. He is not noticing any pain. X-rays of the hip look reassuring. I do not think there was any new injury from the falls tonight. I think we should focus more on the etiologies that made her fall in the 1st place as our primary concern. I do think the increased appropriate in is probably contributing as well and I would recommend adjustment of that while we are sorting out all of the details of her illness. I do think it would be best that she comes into the hospital for management of infection, ultrasound of the gallbladder, management of the lactic acidosis and weakness. Son and patient were in agreement with this plan. Will contact the hospitalist team. Time of Reevaluation #2: 07:17 Reevaluation #2: Still experiencing significant delays getting the repeat lactate drawn due to need for ultrasound and the fact that the patient still has uneven finished a 1 L due to other testing being done. Orders were placed. Ultrasound is suspicious for acute cholecystitis. I have spoken with the surgeon who has deferred thoughts to the hospitalist team. I have spoken with Dr. Mcmillan any days the patient can be admitted here. She will need further workup regarding her heart failure but we will need to reverse her Coumadin of course and start antibiotics. Together, we have elected to start Zosyn, will give 10 mg of vitamin K p.o. x1. Await surgical consult. Will still need trending of lactates and medical management in the interim. Will hand over care to the hospitalist team. Update: Ultrasound has returned. Results as follows: Impression: 1. Distended gallbladder containing a large stone. Wall thickness is abnormal but there is no pericholecystic fluid or sonographic Mathew sign. The common duct measures 1.2 centimeters which is abnormal. 2. There are dilated intrahepatic ducts on the recent CT. The liver was not specifically studied on this exam. 3. The findings are suggestive of acute cholecystitis in the appropriate clinical setting. The dilated ducts could also be due to obstructive cholangiopathy as an additional finding. This could be due to nonvisualized distal choledocholithiasis. 4. Consider MRCP for further evaluation. Will hand over care to hospitalist team. Surgeon aware. Tachycardia is improving overall. No hypotension. We are still waiting on a repeat lactate. Vital Signs Vital signs: Initial Vital Signs Temperature 97.8 F 01/11/24 03:39 Temperature Source Temporal Artery Scan 01/11/24 03:39 Pulse Rate 134 H 01/11/24 03:39 Respiratory Rate 16 01/11/24 03:39 Blood Pressure 102/72 01/11/24 03:39 Blood Pressure Mean 82 01/11/24 03:39 Blood Pressure Position Sitting 01/11/24 03:39 Pulse Oximetry 98 01/11/24 03:39 Oxygen Delivery Method Room Air 01/11/24 03:39 Vital Signs Temperature 97.8 F 01/11/24 03:39 Pulse Rate 134 H 01/11/24 03:39 Respiratory Rate 16 01/11/24 03:39 Blood Pressure 102/72 01/11/24 03:39 Pulse Oximetry 98 01/11/24 03:39 Oxygen Delivery Method Room Air 01/11/24 03:39 Temperature 97.8 F 01/11/24 03:39 Pulse Rate 114 H 01/11/24 07:30 Respiratory Rate 18 01/11/24 04:31 Blood Pressure 122/63 01/11/24 06:51 Pulse Oximetry 98 01/11/24 07:50 Oxygen Delivery Method Nasal Cannula 01/11/24 07:50 Oxygen Flow Rate 2 01/11/24 07:50 Medications Administered Medications: Discontinued Medications Generic Name Dose Route Start Last Admin Trade Name Freq PRN Reason Stop Dose Admin Acetaminophen 650 mg 01/11/24 06:51 01/11/24 07:04 Acetaminophen 325 Mg Tablet PO 01/11/24 06:52 650 mg ONCE ONE Administration Sodium Chloride 500 mls @ 500 mls/hr 01/11/24 04:17 01/11/24 06:00 0.9 % Sodium Chloride 500 Ml IV 01/11/24 05:16 Infused .Q1H ONE Infusion Sodium Chloride 500 mls @ 500 mls/hr 01/11/24 06:33 01/11/24 06:56 0.9 % Sodium Chloride 500 Ml IV 01/11/24 07:32 500 mls/hr .Q1H ONE Administration Piperacillin Sod/Tazobactam 100 mls @ 200 mls/hr 01/11/24 07:13 01/11/24 07:43 Sod 2.25 gm/ Sodium Chloride IVPB 01/11/24 07:14 200 mls/hr ONCE ONE Administration Phytonadione 10 mg 01/11/24 07:13 01/11/24 07:43 Phytonadione Oral Soln 10 Mg/Ml PO 01/11/24 07:14 10 mg ONCE ONE Administration Medical Decision Making Lab Data Lab results reviewed: Yes I reviewed the patient's lab results Lab results narrative: Leukocytosis with elevated INR, decreased creatinine clearance, slight anion gap, elevated lactate. Absolute neutrophil count elevated. Suspicious for bacterial infection Labs: Lab Results 01/11/24 01/11/24 01/11/24 Range/Units 03:50 04:00 06:30 WBC 15.86 H (4.50-11.00) K/uL RBC 3.72 L (4.00-5.20) m/uL Hgb 11.6 L (12.0-16.0) gm/dL Hct 34.9 (33.0-51.0) % MCV 94 (80-100) fL MCH 31 (26-34) pg MCHC 33 (32-36) gm/dL RDW Coeff of [place] 14.3 (11.5-15.5) % Plt Count 375 (140-440) K/uL Neut % (Auto) 85.3 H (42.0-72.0) % Lymph % (Auto) 8.4 L (20-44) % Shannon % (Auto) 5.5 (0.0-11.0) % Eos % (Auto) 0.1 (0.0-7.0) % Baso % (Auto) 0.1 (0.0-3.0) % Neut # (Auto) 13.50 H (1.7-7.0) K/uL Lymph # (Auto) 1.30 (0.90-2.90) K/uL Shannon # (Auto) 0.90 (0.00-0.90) K/UL Eos # (Auto) 0.00 (0.00-0.50) K/uL Baso # (Auto) 0.00 (0.00-0.30) K/uL Abs Immat Gran (auto) 0.10 (0.00-0.30) K/uL Imm/Tot Granulo (auto) 0.6 % INR 4.79 H (0.91-1.10) Sodium 132 L (135-149) mmol/L Potassium 3.3 L (3.6-5.1) mmol/L Chloride 93 L (96-114) mmol/L Carbon Dioxide 22 (20-32) mmol/L Anion Gap 17 H (7-15) mEq/L BUN 30 (7-30) mg/dL Creatinine 1.3 (0.5-1.5) mg/dL Estimated Creat Clear 26.84 Estimated GFR 41 ml/min Glucose 241 H (60-115) mg/dL Lactate 4.1 H* (0.5-1.9) mmol/L Calcium 8.8 (8.4-10.6) mg/dL Total Bilirubin 0.5 (0.1-1.5) mg/dL AST 27 (12-35) U/L ALT 23 (4-35) U/L Alkaline Phosphatase 125 (40-150) U/L Total Creatine Kinase 99 (41-117) U/L C-Reactive Protein 1.6 H (0.5-1.0) mg/dL Total Protein 6.8 (6.0-8.3) g/dL Albumin 4.1 (3.3-5.0) g/dL Procalcitonin 0.14 (<0.50) ng/mL Urine Color Yellow (Yellow) Urine Appearance Cloudy A (Clear) Urine pH 5.0 (5.0-8.5) Ur Specific [place] 1.010 (1.000-1.030) Urine Protein 2+ A (Negative) Urine Glucose (UA) Trace A (Negative) Urine Ketones 1+ A (Negative) Urine Blood 3+ A (Negative) Urine Nitrite Negative (Negative) Urine Bilirubin Negative (Negative) Urine Urobilinogen 0.2 (0.2-1.0) Ur Leukocyte Esterase 2+ A (Negative) Urine RBC >100 A (0-2) Urine WBC >100 A (0-5) Ur Squamous Epith Cells Moderate A (None-Few) Urine Bacteria Many A (None) Urine Opiates Screen Negative (Negative) Ur Oxycodone Screen Negative (Negative) Urine Methadone Screen Negative (Negative) Ur Barbiturates Screen Negative (Negative) U Tricyclic Antidepress Negative (Negative) Ur Phencyclidine Scrn Negative (Negative) Ur Amphetamines Screen Negative (Negative) U Methamphetamines Scrn Negative (Negative) U Benzodiazepines Scrn Negative (Negative) Urine Cocaine Screen Negative (Negative) U Marijuana (THC) Screen Negative (Negative) Ur Drug Screen Comment See Note Ethyl Alcohol < 0.01 L (0.01-0.03) % SARS-CoV-2 (PCR) Negative SARS-CoV-2 (Negative) Influenza Type A (PCR) Negative PCR FLU A (Negative) Influenza Type B (PCR) Negative PCR FLU B (Negative) RSV (PCR) Negative PCR RSV (Negative) POC Troponin I 0.05 H (0.01-0.04) ng/ml 01/11/24 Range/Units 07:15 WBC (4.50-11.00) K/uL RBC (4.00-5.20) m/uL Hgb (12.0-16.0) gm/dL Hct (33.0-51.0) % MCV (80-100) fL MCH (26-34) pg MCHC (32-36) gm/dL RDW Coeff of Sienna (11.5-15.5) % Plt Count (140-440) K/uL Neut % (Auto) (42.0-72.0) % Lymph % (Auto) (20-44) % Shannon % (Auto) (0.0-11.0) % Eos % (Auto) (0.0-7.0) % Baso % (Auto) (0.0-3.0) % Neut # (Auto) (1.7-7.0) K/uL Lymph # (Auto) (0.90-2.90) K/uL Shannon # (Auto) (0.00-0.90) K/UL Eos # (Auto) (0.00-0.50) K/uL Baso # (Auto) (0.00-0.30) K/uL Abs Immat Gran (auto) (0.00-0.30) K/uL Imm/Tot Granulo (auto) % INR (0.91-1.10) Sodium (135-149) mmol/L Potassium (3.6-5.1) mmol/L Chloride (96-114) mmol/L Carbon Dioxide (20-32) mmol/L Anion Gap (7-15) mEq/L BUN (7-30) mg/dL Creatinine (0.5-1.5) mg/dL Estimated Creat Clear Estimated GFR ml/min Glucose (60-115) mg/dL Lactate 1.7 (0.5-1.9) mmol/L Calcium (8.4-10.6) mg/dL Total Bilirubin (0.1-1.5) mg/dL AST (12-35) U/L ALT (4-35) U/L Alkaline Phosphatase (40-150) U/L Total Creatine Kinase (41-117) U/L C-Reactive Protein (0.5-1.0) mg/dL Total Protein (6.0-8.3) g/dL Albumin (3.3-5.0) g/dL Procalcitonin (<0.50) ng/mL Urine Color (Yellow) Urine Appearance (Clear) Urine pH (5.0-8.5) Ur Specific [place] (1.000-1.030) Urine Protein (Negative) Urine Glucose (UA) (Negative) Urine Ketones (Negative) Urine Blood (Negative) Urine Nitrite (Negative) Urine Bilirubin (Negative) Urine Urobilinogen (0.2-1.0) Ur Leukocyte Esterase (Negative) Urine RBC (0-2) Urine WBC (0-5) Ur Squamous Epith Cells (None-Few) Urine Bacteria (None) Urine Opiates Screen (Negative) Ur Oxycodone Screen (Negative) Urine Methadone Screen (Negative) Ur Barbiturates Screen (Negative) U Tricyclic Antidepress (Negative) Ur Phencyclidine Scrn (Negative) Ur Amphetamines Screen (Negative) U Methamphetamines Scrn (Negative) U Benzodiazepines Scrn (Negative) Urine Cocaine Screen (Negative) U Marijuana (THC) Screen (Negative) Ur Drug Screen Comment Ethyl Alcohol (0.01-0.03) % SARS-CoV-2 (PCR) (Negative) Influenza Type A (PCR) (Negative) Influenza Type B (PCR) (Negative) RSV (PCR) (Negative) POC Troponin I 0.07 H (0.01-0.04) ng/ml Imaging Data Chest x-ray: Attestation: I have reviewed the pertinent imaging results. My impression: No acute infiltrate, pleural effusion or signs of new fracture. Old rib fractures noted. Radiologist's impression: Findings/Impression: Cardiovascular and mediastinum: Heart size and vasculature are normal in caliber and appearance. Mediastinum is within normal limits. Lungs and pleural spaces: Lungs are clear. No sign of infiltrate or mass. No sign of pleural effusion. No pneumothorax. Bones and soft tissues: Status post plate and screw fixation of the left 8th rib posteriorly. Old right 6th rib fracture. Dictated by Reji Blank MD @ 01/11/2024 6:15:23 AM Right hip x-ray: My impression: No acute fracture. Bone island but no sign of acute fracture of the ileum Radiologist's impression: Findings/Impression: Bones: No clear acute fracture. However, there is an ossific fragment near the left iliac crest. This appears well corticated and appearance is consistent with an old iliac wing fracture on the left. Joint spaces: Unremarkable. Soft tissues: Enthesopathic spurring at the greater trochanters and iliac crests bilaterally. Minimal likely enthesopathic calcification near the ischium bilaterally. CT scan - abdomen: Attestation: I have reviewed the pertinent imaging results. My impression: Distended gallbladder with what looks to be some sort of like internal ring enhancement I wonder if this is just an unusually shaped very large gallstone. I do not appreciate any abscess in the inguinal region which is reassuring. Radiologist's impression: IMPRESSION: 1. Left inguinal skin defect consistent with the given history of groin infection although without evidence of an abscess. Minimal adjacent skin thickening. 2. Cholelithiasis with prominent gallbladder distention, borderline common duct dilatation intrahepatic biliary dilatation. Right upper quadrant ultrasound suggested to assess for cholecystitis. Note that there can be some compression on the distal common duct secondary to a large duodenal diverticulum adjacent to the papilla. 3. Colonic diverticulosis without evidence of diverticulitis. 4. Old rib and left iliac wing fractures as above. ECG Data Attestation: I personally reviewed and interpreted this ECG as follows: Prior ECG tracings: not available for review Interpretation: Tachycardia, actually think it is atrial fibrillation. I do not see any P waves. Rate is 133. Will probably have to get another 1 once she is less tachycardic but there is certainly a right bundle branch block that obscures interpretation of the ST segments. Unfortunately, I do not have a comparison. QT segment is a bit long but from what did flow over in her outpatient records, there is a long QT syndrome listed but I do not know the source nor back story on this. Discharge Plan Discharge Clinical Impression: Acute calculous cholecystitis, Sepsis, Congestive heart failure Patient Disposition: Admitted As Inpatient
[2024-01-11 04:03] LABS: Troponin, Point-of-Care* 0.05 ng/ml (0.01-0.04)
[2024-01-11 04:08] LABS: Basophils Percent Auto 0.1 % (0.0-3.0); Eosinophils Percent Auto 0.1 % (0.0-7.0); Hematocrit* 34.9 % (33.0-51.0); Hemoglobin* 11.6 gm/dL (12.0-16.0); Immature Granulocytes Pct Auto 0.6 %; Lymphocytes Percent Auto 8.4 % (20-44); Mean Corpuscular HGB Conc 33 gm/dL (32-36); Mean Corpuscular Hemoglobin 31 pg (26-34); Mean Corpuscular Volume 94 fL (80-100); Monocytes Percent Auto 5.5 % (0.0-11.0); Neutrophils Percent Auto 85.3 % (42.0-72.0); Platelet Count* 375 K/uL (140-440); RDW Coefficient of Variation % 14.3 % (11.5-15.5); Red Blood Count* 3.72 m/uL (4.00-5.20); White Blood Count* 15.86 K/uL (4.50-11.00)
[2024-01-11 04:10] LABS: Albumin* 4.1 g/dL (3.3-5.0); Chloride* 93 mmol/L (96-114); Lactate* 4.1 mmol/L (0.5-1.9); Sodium* 132 mmol/L (135-149)
[2024-01-11 04:11] LABS: Potassium* 3.3 mmol/L (3.6-5.1)
[2024-01-11 04:13] LABS: Creatinine* 1.3 mg/dL (0.5-1.5); Est. Creatinine Clearance* 26.84; Estimated Glomerular Filt Rate 41 ml/min; INR 4.79 (0.91-1.10); Prothrombin Time 48.8 Seconds
[2024-01-11 04:14] LABS: Alanine Aminotransferase* 23 U/L (4-35); Alkaline Phosphatase* 125 U/L (40-150); Anion Gap 17 mEq/L (7-15); Aspartate Amino Transferase* 27 U/L (12-35); Bilirubin Total* 0.5 mg/dL (0.1-1.5); Blood Urea Nitrogen* 30 mg/dL (7-30); Calcium* 8.8 mg/dL (8.4-10.6); Carbon Dioxide* 22 mmol/L (20-32); Glucose* 241 mg/dL (60-115); Total Protein* 6.8 g/dL (6.0-8.3)
[2024-01-11 04:17] LABS: C Reactive Protein* 1.6 mg/dL (0.5-1.0)
[2024-01-11 04:22] LABS: Ethanol* < 0.01 % (0.01-0.03)
--- NOTE | 2024-01-11 04:25 | CRLHL7_ITS ---
For Patients: As a result of the Century Cures Act, medical imaging exams and procedure reports are released immediately into your electronic medical record. You may view this report before your referring provider. If you have questions, please contact your health care provider. Indication: Fall, weakness and right hip pain Technique: Three views AP pelvis and right hip Comparison: None Findings/Impression: Bones: No clear acute fracture. However, there is an ossific fragment near the left iliac crest. This appears well corticated and appearance is consistent with an old iliac wing fracture on the left. Joint spaces: Unremarkable. Soft tissues: Enthesopathic spurring at the greater trochanters and iliac crests bilaterally. Minimal likely enthesopathic calcification near the ischium bilaterally. Dictated by Reji Blank MD @ 01/11/2024 6:13:53 AM (Electronically Signed)
--- NOTE | 2024-01-11 04:25 | CRLHL7_ITS ---
For Patients: As a result of the Cures Act, medical imaging exams and procedure reports are released immediately into your electronic medical record. You may view this report before your referring provider. If you have questions, please contact your health care provider. Indication: Fall, weakness and dizziness Technique: Chest 2 views Comparison: None Findings/Impression: Cardiovascular and mediastinum: Heart size and vasculature are normal in caliber and appearance. Mediastinum is within normal limits. Lungs and pleural spaces: Lungs are clear. No sign of infiltrate or mass. No sign of pleural effusion. No pneumothorax. Bones and soft tissues: Status post plate and screw fixation of the left 8th rib posteriorly. Old right 6th rib fracture. Dictated by Reji Blank MD @ 01/11/2024 6:15:23 AM (Electronically Signed)
[2024-01-11] MEDS: 0.9 % SODIUM CHLORIDE 500 ML 500 ML IV ×2 (04:30→06:56)
[2024-01-11 04:31] LABS: Procalcitonin* 0.14 ng/mL (<0.50)
--- OUTSIDE RECORDS SUMMARY | 2024-01-11 04:36 | XMS_ITS | Clinical Summary ---
Author Organization [facility] Address [place], [place] [address] Care Team Providers Care Head Sawyer Name Role Phone Staff, Other Clinical Primary Care Provider Unav ailable Allergies No known active allergies Medications Medication Sig Dispensed Refills Start Date End Date Status acetaminophen (TYLENOL EXTRA STRGTH) 500 mg tablet Take 1,500 mg by mouth every 6 hours if needed. Max acetaminophen dose: 4000mg in 24 hrs. Active tiZANidine (ZANAFLEX) 4 mg tablet Take 4 mg by mouth every 6 hours if needed for Muscle Spasm. Active metFORMIN (GLUCOPHAGE) 500 mg tablet Take 500 mg by mouth 2 times daily with meals. Active clopidogrel bisulfate (PLAVIX ORAL) Take by mouth. Active glipiZIDE (GLUCOTROL) 5 mg tablet Take 5 mg by mouth once daily before a meal. Active traMADol (ULTRAM) 50 mg tabletIndications: Acute left-sided low back pain with left-sided sciatica Take 1 tablet by mouth every 6 hours if needed for Pain. 10 tablet 10/05/2017 Active orphenadrine (NORFLEX) 100 mg tabletIndications: Acute left-sided low back pain with left-sided sciatica Take 1 tablet by mouth 2 times daily. 10 tablet 10/05/2017 Active albuterol HFA (VENTOLIN HFA) 90 mcg/actuation inhaler INHALE 2 PUFFS BY MOUTH EVERY 6 HOURS NEEDED 11/17/2017 Active aspirin (ECOTRIN) 81 mg enteric coated tablet Take 1 Tab by mouth. 12/25/2016 A ctive buPROPion (WELLBUTRIN XL) 300 mg Extended-Release tablet Take by mouth. 06/13/2018 Active furosemide (LASIX) 40 mg tablet Take 0.5 Tabs by mouth. 11/11/2016 Active gatifloxacin 0.5% (ZYMAXID) 0.5 % ophthalmic solution INSTILL 1 DROP TO OPERATIVE EYE FOUR TIMES A DAY UNTIL BOTTLE IS EMPTY. START ONE DAY PRIOR TO SURGERY 07/18/2018 Active isosorbide mononitrate (IMDUR) 30 mg extended release tablet 24 Hour TAKE 1/2 (ONE-HALF) TABLET BY MOUTH AT BEDTIME 03/18/2018 Active ketorolac 0.5 % ophthalmic (ACULAR) solution 07/15/2018 Active lisinopril (PRINIVIL; ZESTRIL) 30 mg tablet Take by mouth. 03/18/2018 Active metoprolol succinate (TOPROL XL) 100 mg Sustained-Release tablet Take 1.5 Tabs by mouth. 03/29/2017 Active prednisoLONE acetate 1% ophthalmic (ECONOPRED PLUS, PRED FORTE, OMNIPRED) suspension 07/15/2018 Active simvastatin (ZOCOR) 20 mg tablet Take 20 mg by mouth. 07/26/2018 Acti ve traZODone (DESYREL) 50 mg tablet TAKE 1\2 TO 1 TABLET BY MOUTH AT BEDTIME 02/07/2018 Active triamcinolone (ARISTOCORT; KENALOG) 0.1 % cream Apply topically to affected area(s). 09/24/2016 Active moxifloxacin (VIGAMOX) 0.5 % ophthalmic solutionIndication s:One drop to operative eye four times a day starting [address] 1 Drop into the eye(s) 4 times daily. Indications: One drop to operative eye four times a day starting 1 day before surgery Active MULTIVITAMIN ORAL Take 1 Tab by mouth. 01/10/2008 Active ARTIFICIAL TEARS, POLYVIN ALC, 1.4 % ophthalmic solution INSTILL ONE DROP TO OPERATIVE EYE FOUR TIMES A DAY UNTIL INSTRUCTED OTHERWISE, BEGIN 1 DAY PRIOR TO SURGERY 12 10/07/2018 Active Active Problems No known active problems Encounters Date Type Department Care Team Description 10/29/2023 Lab Requisition [facility] [phone] Valentina Loera NP 10/28/2023 Lab Requisition [facility] [phone] Valentina Loera NP from Last 3 Months Social History Tobacco Use Types Packs/Day Years Used Date Smoking Tobacco: Never Smokeless Tobacco: Never Alcohol Use Standard Drinks/Week Comments Yes 0 (1 standard drink = 0.6 oz pure alcohol) occasional- 1 glass wine, 1 beer/week Sex and Gender Information Value Date Recorded Sex Assigned at Not on file Gender Identity Not on file Sexual Orientation Not on file Obstetrics History Last Filed Vital Signs Vital Sign Reading Time Taken Comments Blood Pressure 147/81 12/21/2018 2:36 PM CDT Pulse 62 12/21/2018 2:36 PM CDT Temperature 36.7 ??C (98 ??F) 12/21/2018 10: 53 AM CDT Respiratory Rate 16 12/21/2018 2:36 PM CDT Oxygen Saturation 95% 12/21/2018 2:36 PM CDT Inhaled Oxygen Concentration - - Weight 110.4 kg (243 lb 6.2 oz) 12/19/2018 9:14 PM CDT Height 158 cm (5' 2.21) 12/19/2018 9:14 PM CDT Body Mass Index 44.22 12/19/2018 9:14 PM CDT Plan of Treatment Health Maintenance Due Date Last Done Comments Tdap 1953 Depression screening for age 12+ 1954 BMI (ht and wt on same day) for age 18+ 1960 Tetanus booster 1962 Zoster (shingles) series for age 50+ (1 of 2) 1992 DEXA/DXA scan for age 65+ 11/07/2007 Pneumococcal series for age 65+ (1 of 1 - PCV) 11/07/2007 RSV vaccine for adults or (1 - 1-dose 75+ series) 2017 Influenza for age 65+ 11/14/2023 COVID-19 vaccine series Completed 01/06/20 24, 01/05/2023, 01/02/2022, Additional history exists Medical Devices Implanted Type Area [employer] Device Identifier Shelf Expiration Date Model / Serial / Lot [place]nea [place] [employer] Imported - [id number] Implanted:Qty: 1 on 08/03/2018 by Guevara Wade MD at [facility] Right: Eye [facility] 08/14/2018 [employer]NEA PRECUT D# / [id number] CN / Abebe Robles Dme[employer] Tissue Implanted:Qty: 1 on 12/21/2018 by Tim Francisco MD at [facility] Left: Eye 12/31/2018 CORNEA / [id number] P / Procedures Procedure Name Priority Date/Time Associated Diagnosis Comments CBC WITH AUTO DIFFERENTIAL Routine 11/02/2023 8:21 AM CDT Anemia, unspecified HEMOGLOBIN A1C Routine 11/02/2023 8:21 AM CDT 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) BASIC METABOLIC PANEL Routine 11/02/2023 8:21 AM CDT 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) CBC WITH AUTO DIFFERENTIAL Routine 11/02/2023 8:21 AM CDT Anemia, unspecified from Last 3 Months Results * (ABNORMAL) CBC WITH AUTO DIFFERENTIAL (11/02/2023 8:21 AM CDT) WHITE BLOOD COUNT 6.5 4.5 - 11.0 thou/cu mm 11/02/2023 9:26 AM [facility] RED BLOOD COUNT 3.41(L) 4.00 - 5.20 mil/cu mm 11/02/2023 9:26 AM [facility] HEMOGLOBIN 11.0(L) 12.0 - 16.0 g/dL 11/02/2023 9:26 AM [facility] HEMATOCRIT 33.0 33.0 - 51.0 % 11/02/2023 9:26 AM [facility] MCV 97 80 - 100 fL 11/02/2023 9:26 AM [facility] MCH 32.3 26.0 - 34.0 pg 11/02/2023 9:26 AM [facility] MCHC 33.3 32.0 - 36.0 g/dL 11/02/2023 9:26 AM [facility] RDW 14.4 11.5 - 15.5 % 11/02/2023 9:26 AM [facility] PLATELET COUNT 341 140 - 440 thou/cu mm 11/02/2023 9:26 AM [facility] MPV 9.2 6.5 - 11.0 fL 11/02/2023 9:26 AM [facility] % NEUT 63.5 % 11/02/2023 9:26 AM [facility] % LYMPH 28.2 % 11/02/2023 9:26 AM [facility] % MONO 6.0 % 11/02/2023 9:26 AM [facility] % EOS 1.7 % 11/02/2023 9:26 AM [facility] % BASO 0.6 % 11/02/2023 9:26 AM [facility] ABSOLUTE NEUTROPHILS 4.1 1.7 - 7.0 thou/cu mm 11/02/2023 9:26 AM [facility] ABSOLUTE LYMPHOCYTES 1.8 0.9 - 2.9 thou/cu mm 11/02/2023 9:26 AM [facility] ABSOLUTE MONOCYTES 0.4 <0.9 thou/cu mm 11/02/2023 9:26 AM [facility] ABSOLUTE EOSINOPHILS 0.1 <0.5 thou/cu mm 11/02/2023 9:26 AM [facility] ABSOLUTE BASOPHILS 0.0 <0.3 thou/cu mm 11/02/2023 9:26 AM [facility] Blood BLOOD SPECIMEN / Unknown Venipuncture / Unknown 11/02/2023 8:21 AM CDT 11/02/2023 9:18 AM CDT Valentina Loera NP HEMATOLOGY [facility] [address] [place] [address] * (ABNORMAL) HEMOGLOBIN A1C SCREENING (11/02/2023 8:21 AM CDT) HEMOGLOBIN A1C SCREENING 8.7(H) <=6.4 % 11/02/2023 9:26 AM [facility] Blood BLOOD SPECIMEN / Unknown Venipuncture / Unknown 11/02/2023 8:21 AM CDT 11/02/2023 9:18 AM CDT Narrative [facility] - 11/02/2023 9:26 AM CDT ? (<5.7%) ?Normal ? (5.7% to 6.4%) ? Indicates prediabetes ? (>=6.5%) ? Confirms diabetes Falsely low levels may be seen with: Recent Transfusion, Recent Significant Blood Loss, Hemolytic Diseases, or Falsely elevated levels may be seen with: Untreated Anemias, Splenectomy Valentina Loera NP CHEMISTRY Performing Organization Address City/State/[facility] [[email or web address]] Co de Phone Number [facility] [address] [place] [address] * (ABNORMAL) BASIC METABOLIC PANEL (11/02/2023 8:21 AM CDT) [facility] SODIUM 139 136 - 145 mmol/L 11/02/2023 9:41 AM [facility] POTASSIUM 4.3 3.5 - 5.1 mmol/L 11/02/2023 9:41 AM [facility] CHLORIDE 103 98 - 107 mmol/L 11/02/2023 9:41 AM [facility] CO2,TOTAL 28 22 - 29 mmol/L 11/02/2023 9:41 AM [facility] ANION GAP 8 5 - 18 11/02/2023 9:41 AM [facility] GLUCOSE 140(H) 70 - 99 mg/dL 11/02/2023 9:41 AM [facility] CALCIUM 9.3 8.8 - 10.2 mg/dL 11/02/2023 9:41 AM [facility] BUN 18 8 - 23 mg/dL 11/02/2023 9:41 AM T [facility] CREATININE 0.90 0.50 - 0.90 mg/dL 11/02/2023 9:41 AM T [facility] BUN/CREAT RATIO 20 10 - 20 9:41 AM T [facility] eGFR 65(L) >90 mL/min/1.7 3m2 11/02/2023 9:41 AM [facility] Comment:As of 2021, eG FR is calculated by the CKD-EPI creatinine equation without race adjustment. ??eGFR can be influenced by muscle mass, exercise, and diet. ??The reported eGFR is an estimation only and is only applicable if the renal function is stable. Blood BLOOD SPECIMEN / Unknown Venipuncture / Unknown 11/02/2023 8:21 AM CDT 11/02/2023 9:18 AM CDT Valentina Loera NP CHEMISTRY [facility] [address] [place] [address] from Last 3 Months Advance Directives * Full Code (Latest Code Status on File) Date Activated Date Inactivated Comments 12/21/2018 10:40 AM 12/21/2018 4:58 PM Question Answer Comments Code Status Discussion: Not Discussed * Full Code Date Activated Date Inactivated Comments 12/19/2018 9:59 AM 12/19/2018 1:43 PM Question Answer Comments Code Status Discussion: Not Discussed * Full Code Date Activated Date Inactivated Comments 08/03/2018 10:18 AM 08/03/2018 5:17 PM Question Answer Comments Code Status Discussion: Not Discussed Care Teams Head Sawyer Relationship Specialty Start Date End Date Staff, Other Clinical . PCP - General 10/05/17
--- OUTSIDE RECORDS SUMMARY | 2024-01-11 04:36 | XMS_ITS | Encounter Summary ---
Author Organization [facility] Address [address] [place] [address] Care Team Providers Care Deburr Technician Name Role Phone Mich Luevano D.O. Primary Care Pro vider Reason for Visit * Reason Onset Date Comments Anticoagulation 01/07/2024 Medication inter action Encounter Details Date Type Department Care Team (Latest Contact Info) Description 01/07/2024 Clinical Communication Department of Anticoagulation in [place], [place] [address] [place] [address] Alka Chaudhari RLiyah Anticoagulation (Medication interaction) Social History Tobacco Use Types Packs/Day Years Used Date Smoking Tobacco: Never Passive Smoke Exposure: Never Smokeless Tobacco: Never Alcohol Use Standard Drinks/Week Comments Yes 1 (1 standard drink = 0.6 oz pur e alcohol) [facility] Utilities Answer Date Recorded In the past 12 months has e [employer], gas, oil, or water [employer] threatened to shut off services in your home? No 10/17/2023 Humiliation, Afraid, Rape, and Kick questionnair e Answer Date Recorded Within the last year, have y ou been afraid of your partner or ex-partner? No 10/17/2023 Within the last year, have y ou been humiliated or emotionally abused in other ways by your partner or ex-partner? No Within the last year, have y ou been kicked, hit, slapped, or otherwise physically hurt by your partner or ex-partner? No 10/17/2023 Within the last year, have y ou been raped or forced to have any kind of sexual activity by your partner or ex-partner? No 10/17/2023 Social Connection and Isolat ion Panel [NHANES] Answer Date Recorded In a typical week, how many times do you talk on the phone with family, friends, or neighbors? Three times a week 06/15/2022 How often do you get togethe r with friends or relatives? Twice a week 06/15/2022 How often do you attend chur ch or temple services? More than 4 times per year 06/15/2022 Do you belong to any clubs o r organizations such as judaism groups, unions, fraternal or athletic groups, or school groups? Yes 06/15/2022 How often do you attend meet ings of the clubs or organizations you belong to? 1 to 4 times per year 06/15/2022 Are you , , di vorced, , never , or living with a partner? 06/15/2022 AUDIT-C Answer Date Recorded Q1: How often do you have a drink containing alc ohol? Monthly or less 06/15/2022 Q2: How many drinks containi ng alcohol do you have on a typical day when you are drinking? 1 or 2 06/15/2022 Q3: How often do you have si x or more drinks on one occasion? Never 06/15/2022 Overall Financial Resource Strain (CARDIA) Answe r Date Recorded How hard is it for you to pa y for the very basics like food, housing, medical care, and heating? Somewhat hard 06/15/2022 PHQ-2 Answer Date Recorded PHQ-2 Score 6 10/05/2023 [facility] Occupat ional Health - Occupational Stress Questionnaire Answer Date Recorded Do you feel stress - tense, restless, nervous, or anxious, or unable to sleep at night because your mind is troubled all the time - these days? Not at all 06/15/2022 Exercise Vital Sign Answer Date Recorde d On average, how many days pe r week do you engage in moderate to strenuous exercise (like a brisk walk)? 2 days 06/15/2022 On average, how many minutes do you engage in exercise at this level? 20 min 06/15/2022 Hunger Vital Sign Answer Date Recorded Within the past 12 months, y ou worried that your food would run out before you got the money to buy more. Never true 10/17/19 Within the past 12 months, t he food you bought just didn't last and you didn't have money to get more. Never true 10/17/2023 PRAPARE - Transportation Answer Date Re corded In the past 12 months, has l ack of transportation kept you from medical appointments or from getting medications? No 06/2023 In the past 12 months, has l ack of transportation kept you from meetings, work, or from getting things needed for daily living? No 10/17/2023 Depression Answer Date Recor ded PHQ-9 Total Score (max 27) 16 10/04 Nutrition Answer Date Recorded On average, how many serving s of fruits and vegetables do you eat per day (serving size is equal to 1 cup or approximately the size of a tennis ball)? 2-3 06/15/2022 Dental Answer Date Recorded Dental: Regular Dentist Yes 06/16/19 Employment Answer Date Recorded Employment status Retired 06/15/2022 Housing Stability Answer Date Recorded What is your living situation today? I [facility] to live 10/17/2023 Education Answer Date Recorded What is the highest level of school you have completed or the highest degree you have received? Some college, no degree 09/28/2018 Comments No Sex and Gender Information Value Date Recorded Sex Assigned at Female 09/22/2017 1:45 PM CDT Legal Sex Female 7:19 AM TRIAGE SPECIALIST Gender Identity Female 09/22/2017 1:45 PM CDT Sexual Orientation Straight 09/22/2017 1: 45 PM CDT documented as of this encounter Plan of Treatment Upcoming Encounters Date Type Department Care Team (Late st Contact Info) Description 01/19/2024 3:30 PM TRIAGE SPECIALIST Nurse Only Department of Family Medicine, [facility], in [place], [place] [address] [address] documented as of this encounter Goals Goal Patient Goal Type Associated Problems Recent Progress Patient-Stated? Author Blood Pressure < 140/90 Blood Pressure 138/77(01/05 3:23 PM CDT) No Honey King R.N. Do one productive activity per day General On track(2018 1:31 PM CDT) Yes Teodora Horvath R.N. Note: i.e. automat watcher: clean the kitchen, vacuum, laundry 11/09 is doing more but not everyday 11/23 doing that most of the time, ie laundry, clean kitchen, clean bedroom 12/07/18 been gone a lot so hard to do this Engage in social activities Lifestyle On track(2018 1:32 PM CDT) No Teodora Horvath R.N. Note: Pt will look into attending Senior vitality group at [facility] starting in November 20 went to funerals, talked with another lady she did not know there, doing [employer], swim aerobics, visited her son 11/23/18 went to [employer], going to [place] visit [place], going to [employer] 12/07/18 [place] mom and went to concert in [place]. Made a new friend. Hemoglobin A1c < 7.0 Result Component 9.9(05/06/19 24 1:03 PM TRIAGE SPECIALIST) No Honey King R.N. PHQ-9 Total Score (max 27) < 5 Symptom Management 16( 2:19 PM CDT) No Teodora Horvath R.N. documented as of this encounter Visit Diagnoses Diagnosis Cardiomyopathy Dilated (HCC)- Primary Chronic Systolic (Congestive) Heart Failure (HCC) Thrombus Intracardiac [place] (Current) Anticoagulant Treatment Monitoring For Therapeutic Drug Therapy documented in this encounter Additional Health Concerns Assessment Noted Time PHQ-9 Depression Total Score: 16 024 2:19 PM CDT documented as of this encounter Care Teams Deburr Technician Relationship Specialty Start Date End Date Mich Luevano D.O. [address] [place] [address] PCP - General 09/12/22 documented as of this encounter
--- OUTSIDE RECORDS SUMMARY | 2024-01-11 04:36 | XMS_ITS | Clinical Summary ---
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 (Congestive) Heart Failure (HCC); Thrombus Intracardiac; Mechanist (Current) Anticoagulant Treatment; Monitoring For Therapeutic Drug Therapy 12/21/2023 Orders Only RST PCP [facility] MNT Luis Alfredofschulte-Be Mich cardona D.O. 12/20/2023 Clinical Communication Department of Family Medicine, [address] [phone] Luis Alfredofschulte-Be Mich cardona D.OOsvaldo PandaDoc Form (Order [id number]) 12/15/2023 3:00 PM CDT Anticoagulation Visit Department of Anticoagulation in [address] [phone] Hardychulte-Be Mich cardona D.O. Cardiomyopathy Dilated (HCC) (Primary Dx); Chronic Systolic (Congestive) Heart Failure (HCC); Thrombus Intracardiac; Halfway (Current) Anticoagulant Treatment; Monitoring For Therapeutic Drug Therapy 12/09/2023 Clinical Communication Department of Family Medicine, [place], [place] [address] [place] [address] Luis Alfredofschulte-Be Mich cardona D.OOsvaldo PandaDoc Form (OT order) 12/08/2023 1:15 PM CDT Anticoagulation Visit Department of Anticoagulation in [place], [place] [address] [place] [phone] Luis Alfredofschulte-Be ckMich D.O. Cardiomyopathy Dilated (HCC) (Primary Dx); Chronic Systolic (Congestive) Heart Failure (HCC); Thrombus Intracardiac; Mechanist (Current) Anticoagulant Treatment; Monitoring For Therapeutic Drug Therapy 12/06/2023 Clinical Communication Department of Family Medicine, [place], [place] [address] [place] [address] Hardychkayleene-Be Mich cardona D.O. PandaDoc Form (Order [id number]) 12/06/2023 Refill Department of Family Medicine, [place], [place] [address] [place] [address] Hardychulte-Be Mich cardona D.O. Med Refill 12/01/2023 1:30 PM CDT Anticoagulation Visit Department of Anticoagulation in [place], [place] [address] [place] [address] Juane-Be Mich cardona D.O. Chronic Systolic (Congestive) Heart Failure (HCC) (Primary Dx); Cardiomyopathy Dilated (HCC); Thrombus Intracardiac; Mechanist (Current) Anticoagulant Treatment; Monitoring For Therapeutic Drug Therapy 11/24/2023 1:40 PM CDT Anticoagulation Visit Department of Anticoagulation in [place], [place] [address] [place] [address] Li Riggs D.O. Cardiomyopathy Dilated (HCC) (Primary Dx); Mechanist (Current) Anticoagulant Treatment; Thrombus Intracardiac; Congestive Heart Failure Ejection Fraction Less Than 35 Percent And [place] Heart Association Class 2-3 (HCC); Monitoring For Therapeutic Drug Therapy; Chronic Systolic (Congestive) Heart Failure (HCC) 11/24/2023 Clinical Communication Department of Family Medicine, [place], [place] [address] [place] [address] Hardychulte-Be Mich cardona D.O. Panda Doc Form (Order #[id number]) 11/19/2023 Clinical Communication Department of Family Medicine, [place], [place] [address] [place] [address] Hardychkayleene-Be Mich cardona D.O. Order Request 11/19/2023 Clinical Communication Department of Family Medicine, [place], [place] [address] [place] [address] Luis Alfredo Maravilla RLiyah Follow-up (Appt today) 11/12/2023 Clinical Communication Department of Family Medicine, [place], [place] [address] [place] [address] Luis Alfredofschulte-Be Mich cardona D.O. Med Question 10/25/2023 Clinical Communication Department of Family Medicine, [place], [place] [address] [place] [address] Hardychulte-Be Mich cardona D.OOsvaldo 10/21/2023 Clinical Communication Department of Anticoagulation in [place], [place] [address] [place] [address] Stacey Suero RLiliya. Anticoagulation (Hospital discharge, SNF admit) 10/20/2023 Clinical Communication Department of Family Medicine, [place], [place] [address] [place] [address] Hardychulte-Be Mich cardona D.OOsvaldo 10/19/2023 Clinical Communication Department of Family Medicine, [place], [place] [address] [place] [address] Luis Alfredofschulte-Be Mich cardona D.O. Order Request 10/17/2023 5:45 AM CDT - 10/20/2023 2:25 PM CDT Hospital Encounter [facility], [facility], Second Floor [address] [place] [address] Sonia Lucas M.D., M.S. Rafa Mayberry M.D., M.P.H. Aurora Mitchell M.D. 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); Cardiomyopathy Dilated (HCC); Chronic Systolic (Congestive) Heart Failure (HCC); Thrombus Intracardiac; Halfway (Current) Anticoagulant Treatment; Monitoring For Therapeutic Drug Therapy; Fracture Rib Multiple Closed Initial Right; Fracture Ilium Avulsion Displaced Closed Initial Left (HCC) Discharge Disposition: [facility] Facility 10/15/2023 10:10 AM CDT Anticoagulation Visit Department of Anticoagulation in [place], [place] [address] [place] [address] Li Riggs, DOsvaldoOOsvaldo Thrombus Intracardiac (Primary Dx); Cardiomyopathy Dilated (HCC); Chronic Systolic (Congestive) Heart Failure (HCC); Mechanist (Current) Anticoagulant Treatment; Monitoring For Therapeutic Drug Therapy 10/15/2023 9:30 AM CDT - 10/15/2023 11:59 PM CDT Hospital Encounter Department of Laboratory Medicine in [place], [place] [address] [place] [address] Mich Hickman DEthan Mechanist (Current) Anticoagulant Treatment; Thrombus Intracardiac; Congestive Heart Failure Ejection Fraction Less Than 35 Percent And [place] Heart Association Class 2-3 (HCC); Monitoring For Therapeutic Drug Therapy; Cardiomyopathy Dilated (HCC); Chronic Systolic (Congestive) Heart Failure (HCC) Discharge Disposition: Home or Self Care from Last 3 Months Immunizations Name Administration Dates Next Due HZV (ZOSTAVAX) 11/29/2008 HepB Adult 09/24/2016,01/02/1994,12/05/1993 Influenza high dose QV(65 ye ars or older) (PF) 01/05/2023,01/02/2022,01/03/2021,2019 Influenza, Seasonal, Injectable 12/23/2010 PCV13 02/26/2014 PPSV23 09/24/2016,02/07/2001,08/18/1999 RZV (SHINGRIX) 08/06/2020,,12/16/2018(Deferr ed: Patient Refused - will check insurance) SARS-COV-2 (COVID-19) - MODE RNA (12 YEARS AND OLDER) Fall Seasonal 01/06/2024,01/05/2023 SARS-COV-2 (COVID-19) - PFIZ ER (Discontinued)(12 years or older) 01/03/2021,07/03/2020,06/12/2020 SARS-COV-2 (COVID-19) - PFIZ ER BIVALENT TS(Discontinued)(12 YEARS OR OLDER) 01/02/2022 Td Preservative Free (TENIVA C, DECAVAC) 12/08/2004 Tdap 08/06/2020,06/26/2010 Tetanus Toxoid, Adsorbed (discontinued) 11/28/1993 influenza trivalent high dos e (HD)(PF) 01/06/2024,06/17/2018,02/15/2017,2016,05/28/2015 influenza trivalent vaccine (6 months and older)(PF) 12/17/2019,01/30/2010 Family History Medical History Relation Name Comments Migraines Daughter Yennifer Breast cancer Mother karl walden Depression Mother karl walden Relation Name Status Comments Daughter Yennifer Mother karl walden Social History Tobacco Use Types Packs/Day Years Used Date Smoking Tobacco: Never Passive Smoke Exposure: Never Smokeless Tobacco: Never Tobacco Cessation:Counseling Given: Not Answered Alcohol Use Standard Drinks/Week Comments Yes 1 (1 standard drink = 0.6 oz pur e alcohol) [facility] [employer] Answer Date Recorded In the past 12 months has [facility] [employer], gas, oil, or water [employer] threatened to shut off services in your [...] 06/15/2022 How often do you attend chur or yazidi services? More than 4 times per year 06/15/2022 Do you belong to any clubs o r organizations such as muslim groups, unions, fraternal or athletic groups, or [...] Answer Date Recorded PHQ-2 Score 6 10/05/2023 [facility] - Occupational Stress Questionnaire Answer [...] money to buy more. Never true 10/17/19 24 Within the past 12 months, t he [...] your living situation today? I have a [facility] place to live 10/17/2023 Education Answer Date Recorded What is the highest level of school you have completed or the highest degree you have received? Some college, no degree 09/28/2018 Comments No Sex and Gender Information Value Date Recorded Sex Assigned at Female 09/22/2017 1:45 PM CDT Legal Sex Female 7:19 AM TORQUE TESTER Gender Identity Female 09/22/2017 1:45 PM CDT Sexual Orientation Straight 09/22/2017 1: 45 PM CDT Last Filed Vital Signs Vital Sign Reading Time Taken Comments Blood Pressure 138/77 01/06/2024 3:23 PM CDT Pulse 83 01/06/2024 3:23 PM CDT Temperature 36.3 ??C (97.3 ??F) 01/06/2024 3:23 PM CD T Respiratory Rate 17 10/20/2023 1:06 PM CDT Oxygen Saturation 98% 10/20/2023 11:50 AM CDT Inhaled Oxygen Concentration - - Weight 85.9 kg (189 lb 6 oz) 01/06/2024 3:23 PM CDT Height 157.5 cm (5' 2) 10/17/2023 2:50 PM CDT Body Mass Index 34.64 10/17/2023 2:50 PM CDT Plan of Treatment Upcoming Encounters Date Type Department Care Team (Late st Contact Info) Description 01/19/2024 3:30 PM TORQUE TESTER Nurse Only Department of Family Medicine, [facility], in [place], [place] [address] [address] Health Maintenance Due Date Last Done Comments Visit: Medicare Annual Wellness 1942 RSV vaccine - (32-36 weeks) or 60+ years (1 - 1-dose 75+ series) 2017 Diabetic Office Visit with Foot Exam 08/06/2021 08/06/2020, 08/10/2019, 08/10/2019 Urine Albumin 12/01/2022 12/01/2021, 07/14, 08/08/2019, Additional history exists Dilated Eye Exam 05/15/2023 05/14/2022 (Per formed elsewhere), 01/27/2021 (Performed elsewhere), 03/15/2020 (Performed elsewhere), Additional history exists Hemoglobin A1C 02/02/2024 11/02/2023, 04/16, 03/24/2022, Additional history exists Depression Monitoring (PHQ-9) 02/05/2024 10/05/2023 Visit: Chronic Disease, age 18+ 05/12/2024 05/13/2023, 05/13/2023 Creatinine Level (Kidney Function Test) 11/01/2024 11/02/2023, 10/19/2023, 10/17/2023, Additional history exists Potassium Level 11/01/2024 11/02/2023, 08/0 08/2023, 10/17/2023, Additional history exists Sodium Level 11/01/2024 11/02/2023, 08/0 08/2023, 10/17/2023, Additional history exists Office Visit for Blood Pressure Check / Re-check 01/05/2025 01/06/2024 DTaP,Tdap,and Td Vaccines (3 - Td or Tdap) 08/06/2030 08/06/2020, 06/26/2010, 12/08/2004 Hepatitis B Vaccines Completed 09/24/2016, 01/02/1994, 12/05/1993 Pneumococcal vaccine (65+ years) Completed 09/24/2016, 02/26/2014, 02/07/2001, Additional history exists Zoster Vaccines Completed 08/06/2020, 12/14, 11/29/2008 Fall Risk Screen (Annual) Completed 03/22/2023 COVID-19 Vaccine Completed 01/06/2024, , 01/02/2022, Additional history exists Influenza Vaccine Completed 01/06/2024, , 01/02/2022, Additional history exists IPV Vaccines Aged Out No longer eligi ble based on patient's age to complete this topic Goals Goal Patient Goal Type Associated Problems Recent Progress Patient-Stated? Author Blood Pressure < 140/90 Blood Pressure 138/77(01/05 3:23 PM CDT) No Honey King R.N. Do one productive activity per day General On track(2018 1:31 PM CDT) Yes Teodora Horvath R.N. Note: i.e. 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 Note: Pt will look into attending Senior vitality group at [facility] starting in November 20 went to funerals, talked with another lady she did not know there, doing [employer], swim aerobics, visited her son 11/23/18 went to [employer], going to [place] visit [place], going to [employer] 12/07/18 [place] mom and went to concert in [place]. Made a new friend. Hemoglobin A1c < 7.0 Result Component 9.9(05/06/19 24 1:03 PM TORQUE TESTER) No Honey King R.N. PHQ-9 Total Score (max 27) < 5 Symptom Management 16( 4 2:19 PM CDT) No Teodora Horvath ROsvaldoN. Medical Devices Implanted Type Area Resistance Machine Welder Setter Device Identifier Shelf Expiration Date Model / Serial / Lot Mohanine Stent 3.5 X 15 - Valderrama [id number] Implanted:Qty: 1 on 12/24/2016 Cardiac Stent Berry Description:Device Manufactu rer - [employer]. Device Status Text - [id number]. Screw-Matrixrib S-Tap Lock 2.9 X 12mm - Valderrama [id number] Implanted:Qty: 5 on 02/16/2012 Hardware e.g. pins/screws/ rods Depuy Synthes Description:Device Manufactu rer - Synthes. Device Status Text - [id number]. Plate-Matrixrib Univ. 8 Holes - Valderrama [id number] Implanted:Qty: 1 on 02/16/2012 Hardware e.g. pins/screws/ rods Depuy Synthes Description:Device Manufactu rer - Synthes. Device Status Text - [id number]. Screw-Matrixrib S-Tap Lock 2.9 X 10mm - Valderrama [id number] Implanted:Qty: 3 on 02/16/2012 Hardware e.g. pins/screws/ rods Depuy Synthes Description:Device Manufactu rer - Synthes. Device Status Text - [id number]. Procedures Procedure Name Priority Date/Time Associated Diagnosis Comments MT RMVL IMPACT CERUMEN IRRIG UNILAT Routine 01/06/2024 3:30 PM CDT Cerumen Impacted Bilateral PROTHROMBIN TIME (PT), P Routine 12/31/2023 PROTHROMBIN TIME (PT), P Routine 12/23/2023 PROTHROMBIN TIME (PT), P Routine 12/15/2023 PROTHROMBIN TIME (PT), P Routine 12/08/2023 PROTHROMBIN TIME (PT), P Routine 12/01/2023 PROTHROMBIN TIME (PT), P Routine 11/24/2023 PROTHROMBIN TIME (PT), P Routine 10/22/2023 GLUCOSE POCT, B Routine 10/20/2023 12:05 PM CDT GLUCOSE POCT, B Routine 10/20/2023 8:34 AM CDT PROTHROMBIN TIME (PT), P STAT 10/20/2023 8:09 AM CDT GLUCOSE POCT, B Routine 10/19/2023 9:04 PM CDT GLUCOSE POCT, B Routine 10/19/2023 5:08 PM CDT GLUCOSE POCT, B Routine 10/19/2023 12:47 PM CDT GLUCOSE POCT, B Routine 10/19/2023 9:06 AM CDT CBC WITHOUT DIFFERENTIAL, B Routine 10/19/2023 6:00 AM CDT BASIC METABOLIC PANEL, S/P Routine 10/19/2023 6:00 AM CDT PROTHROMBIN TIME (PT), P Routine 10/19/2023 6:00 AM CDT GLUCOSE POCT, B Routine 10/19/2023 3:46 AM CDT GLUCOSE POCT, B Routine 10/18/2023 11:08 PM CDT GLUCOSE POCT, B Routine 10/18/2023 10:27 PM CDT GLUCOSE POCT, B Routine 10/18/2023 4:52 PM CDT GLUCOSE POCT, B Routine 10/18/2023 12:42 PM CDT GLUCOSE POCT, B Routine 10/18/2023 8:07 AM CDT PROTHROMBIN TIME (PT), P Routine 10/18/2023 6:56 AM CDT GLUCOSE POCT, B Routine 10/17/2023 9:32 PM CDT GLUCOSE POCT, B Routine 10/17/2023 4:[address] HIP LEFT WITHOUT IV CONTRAST RAD - Semiurgent (Fast; most ED patients; some inpatients) 10/17/2023 8:50 AM CDT DX CHEST AP OR PA AND LATERAL 2 VIEWS RAD - Semiurgent (Fast; most ED patients; some inpatients) 10/17/2023 7:06 AM CDT DX HIP AND PELVIS LEFT 2-3 VIEWS RAD - Semiurgent (Fast; most ED patients; some inpatients) 10/17/2023 7:06 AM CDT PROTHROMBIN TIME (PT), P STAT 10/17/2023 6:41 AM CDT BASIC METABOLIC PANEL, S/P STAT 10/17/2023 6:41 AM CDT HEPATIC FUNCTION PANEL, S STAT 10/17/2023 6:41 AM CDT CBC WITH DIFFERENTIAL, B STAT 10/17/2023 6:[address] CERVICAL SPINE WITHOUT IV CONTRAST RAD - Semiurgent (Fast; most ED patients; some inpatients) 10/17/2023 6:[address] HEAD WITHOUT IV CONTRAST RAD - Semiurgent (Fast; most ED patients; some inpatients) 10/17/2023 6:27 AM CDT ECG STAT 10/17/2023 5:52 AM CDT INR REFLEX, POCT, B Routine 10/15/2023 10:59 AM CDT Mechanist (Current) Anticoagulant Treatment Thrombus Intracardiac Congestive Heart Failure Ejection Fraction Less Than 35 Percent And [place] Heart Association Class 2-3 (HCC) Monitoring For Therapeutic Drug Therapy Cardiomyopathy Dilated (HCC) Chronic Systolic (Congestive) Heart Failure (HCC) HEMOGLOBIN A1C, B Routine 05/06/2023 1:0 3 PM TORQUE TESTER Diabetes Mellitus Type 2 (HCC) ALBUMIN, RANDOM, U Routine 12/01/2021 3: 22 PM CDT Diabetes Mellitus Type 2 (HCC) from Last 3 Months or Most Recently Relevant to Health Maintenance Results * MT RMVL IMPACT CERUMEN IRRIG UNILAT (01/06/2024 3:30 PM CDT) Narrative MMODAL - 01/06/2024 3:30 PM CDT Nissa Mukherjee L.P.N. ? 01/10/2024 11:21 AM Ear cerumen removal Performed by: Nissa Mukherjee L.P.N. Authorized by: Mich Luevano D.O. ?? Care team members present 1. Nissa Mukherjee L.P.N. PROCEDURE DETAILS Location: left ear and right ear Procedure type: irrigation ?? Scope used: otoscope CONSENT Consent obtained: verbal Consent given by: patient The benefits, risks and alternatives to the procedure and the potential need for sedation or anesthesia as well as the names, roles, and responsibilities of healthcare team members performing significant interventional tasks were discussed with the patient and/or decision maker. UNIVERSAL PROTOCOL All relevant documentation and testing were reviewed and available. All required blood products, implants, devices and or special equipment were made available as applicable. Pre-procedure verification was conducted and the correct site was marked if required. A fire risk and smoke assessment were done as applicable. The procedural time-out to verify correct patient, correct side/site, and procedure was conducted prior to performing the procedure and confirmed in a procedural pause. PRE-PROCEDURE DETAILS Indication: cerumen impaction SEDATION / ANESTHESIA Anesthesia method: none POST-PROCEDURE DETAILS Inspection: partial impaction removal Hearing quality: normal Complications: no immediate complications ?? us Mich Luevano D.O. PROCEDURE/MINOR S URGICAL ORDERABLES Final Result MMODAL NA * Prothrombin Time (PT) (12/31/2023) Only the most recent of11 resultswithin the time period is included. EXT INR 2.80 OTHER (SPE CIFY IN STRATEGIC SOLUTIONS CONSULTANT) Comment:HHC/POC Blood (Blood, Venous) us Historical Provider LAB BLOOD ADD-ON Final Resul t OTHER (SPECIFY IN STRATEGIC SOLUTIONS CONSULTANT) N/A * (ABNORMAL) Glucose, POCT (10/20/2023 12:05 PM CDT) Only the most recent of14 resultswithin the time period is included. Glucose, POCT, B 241(H) 70 - 140 mg/dL 10/20/2023 12:21 PM CDT PCLX Site Capillary 10/20/2023 12:21 PM CDT PCLX Last Intake 2-3 hours 10/20/2023 12:21 PM CDT PCLX Blood 10/20/2023 12:0 5 PM CDT 10/20/2023 12:21 PM CDT Unknown Provider LAB POCT ORDERABLES-MANUAL Janet l Result POC [facility] [address] [place] [address], [facility] PCLX [facility] [place] POC [address] [place] [address] * (ABNORMAL) CBC without Differential (10/19/2023 6:00 AM CDT) Hemoglobin 10.4(L) 11.6 - 15.0 g/dL 10/19/2023 6:59 AM CDT DTL Hematocrit 31.5(L) 35.5 - 44.9 % 10/19/2023 6:59 AM CDT DTL Erythrocytes 3.43(L) 3.92 - 5.13 x10(12)/L 10/19/2023 6:59 AM CDT DTL MCV 91.8 78.2 - 97.9 fL 10/19/2023 6:59 AM CDT DTL RBC Distrib Width 13.7 12.2 - 16.1 % 10/19/2023 6:59 AM CDT DTL Platelet Count 270 157 - 371 x10(9)/L 10/19/2023 6:59 AM CDT DTL Leukocytes 8.1 3.4 - 9.6 x10(9)/L 10/19/2023 6:59 AM CDT DTL Blood (Blood, Venous) 10/19/2023 6:00 AM CDT 10/19/2023 6:46 AM CDT us Annabelle Wright APRN, C.N.P. LAB BLOOD ADD-ON Janet l Result [facility] [address] [place] [address], [facility] [address] [place] [address] * (ABNORMAL) Basic Metabolic Panel (10/19/2023 6:00 AM CDT) Only the most recent of2 resultswithin the time period is included. [facility] Potassium, S 4.2 3.6 - 5.2 mmol/L 10/19/2023 7:23 AM CDT DTL Sodium, S 137 135 - 145 mmol/L 10/19/2023 7:23 AM CDT DTL Chloride, S 101 98 - 107 mmol/L 10/19/2023 7:23 AM CDT DTL Bicarbonate, S 25 22 - 29 mmol/L 10/19/2023 7:23 AM CDT DTL Anion Gap 11 7 - 15 10/19/2023 7:23 AM CDT DTL BUN (Blood Urea Nitrogen), S 15 6 - 21 mg/dL 10/19/2023 7:23 AM CDT DTL Creatinine 0.89 0.59 - 1.04 mg/dL 10/19/2023 7:23 AM CDT DTL Estimated GFR (eGFR) 65 >=60 mL/min/BSA 10/19/2023 7:23 AM CDT DTL Comment: Estimated GFR calculated using the 2020 CKD_EPI creatinine equation. Calcium, Total, S 9.0 8.8 - 10.2 mg/dL 10/19/2023 7:23 AM CDT DTL Glucose, S 202(H) 70 - 140 mg/dL 10/19/2023 7:23 AM CDT DTL Blood (Blood, Venous) 10/19/2023 6:00 AM CDT 10/19/2023 7:06 AM CDT Annabelle Wright APRN C.N.P. LAB BLOOD ADD-ON Janet l Result [facility] [address] [place] [address], [facility] DTL [facility] [address] [place] [address] * CT Hip Left without IV Contrast (10/17/2023 8:50 AM CDT) Anatomical Region Laterality Modality Lower Extremity, Hip, Muscul oskeletal RST LOS, Musculoskeletal ARZ LOS, Muskuloskeletal FLA LOS Left Computed Tomography, Compute d Tomography Impressions 10/17/2023 6:34 PM CDT Acute fracture of the anterosuperior left iliac wing with approximately 1 cm lateral displacement of the fracture fragment. Narrative 10/17/2023 6:34 PM CDT EXAM: ??CT HIP LEFT WITHOUT IV CONTRAST 3D images were created on an independent workstation with or without AI assistance as ordered by the treating provider and reviewed by the radiologist to assist in treatment planning. COMPARISON: ??Left hip radiographs 10/17/2023 FINDINGS: ??Noncontrast dual-energy CT of the pelvis, with specific attention to the left hip. Acute, moderately displaced fracture of the anterosuperior left iliac wing with approximately 1 cm of posterolateral displacement of the fracture fragment. Small amount of surrounding nonorganized edema and blood products. Demineralization. No other fracture demonstrated. No areas of bone marrow edema on virtual noncalcium images. Old fracture or accessory ossicle along the left L4 transverse process. Mild-moderate arthritis of both hips, the pubic symphysis, and the SI joints with chondrocalcinosis. Vacuum phenomenon within both SI joints, and in a subchondral cyst about the left-sided joint. Spondylotic changes of the lower lumbar spine. Heterotopic ossification in the distal quadriceps and proximal hamstrings and adductor tendons. Small intramuscular lipoma in the right adductors. Colonic diverticulosis. Aortoiliac calcifications. Procedure Note Kassidy Isidro M.D. - 10/17/2023 EXAM: CT HIP LEFT WITHOUT IV CONTRAST 3D images were created on an independent workstation with or without AIassistance as ordered by the treating provider and reviewed by theradiologist to assist in treatment planning. COMPARISON: Left hip radiographs 10/17/2023 FINDINGS: Noncontrast dual-energy CT of the pelvis, with specificattention to the left hip. Acute, moderately displaced fracture of the anterosuperior left iliac wingwith approximately 1 cm of posterolateral displacement of the fracturefragment. Small amount of surrounding nonorganized edema and bloodproducts. Demineralization. No other fracture demonstrated. No areas of bone marrowedema on virtual noncalcium images. Old fracture or accessory ossiclealong the left L4 transverse process. Mild-moderate arthritis of both hips, the pubic symphysis, and the SIjoints with chondrocalcinosis. Vacuum phenomenon within both SI joints,and in a subchondral cyst about the left-sided joint. Spondylotic changesof the lower lumbar spine. Heterotopic ossification in the distal quadriceps and proximal hamstrings andadductor tendons. Small intramuscular lipoma in the right adductors. Colonic diverticulosis.Aortoiliac calcifications. IMPRESSION: Acute fracture of the anterosuperior left iliac wing with approximately 1cm lateral displacement of the fracture fragment. Mike Patricia M.D. IMVijay CT PROCEDURES Final Re sult * DX Hip And Pelvis Left 2-3 Views (10/17/2023 7:06 AM CDT) Anatomical Region Laterality Modality Lower Extremity, Pelvis, Hip , Musculoskeletal RST LOS, Musculoskeletal ARZ LOS, Muskuloskeletal FLA LOS Left Digit al Radiography Impressions 10/17/2023 7:10 AM CDT Moderate laterally displaced fracture through the lateral aspect of the superior left iliac wing. No other acute displaced fractures of the pelvis appreciated. Diffuse advanced age-related hypertrophic skeletal degenerative changes throughout the visualized lower lumbar spine and pelvis. Vascular calcifications. Narrative 10/17/2023 7:10 AM CDT EXAM: ??DX HIP AND PELVIS LEFT 2-3 VIEWS Procedure Note Jeevan Titus M.D. - 10/17/2023 EXAM: DX HIP AND PELVIS LEFT 2-3 VIEWS IMPRESSION: Moderate laterally displaced fracture through the lateral aspect of thesuperior left iliac wing. No other acute displaced fractures of the pelvisappreciated. Diffuse advanced age-related hypertrophic skeletaldegenerative changes throughout the visualized lower lumbar spine and pelvis. Vascularcalcifications. Sonia Lucas M.D., M.S. IMG DIAGNOSTIC IMAGING PROCEDURES Final Result * DX Chest AP or PA and Lateral 2 Views (10/17/2023 7:06 AM CDT) Anatomical Region Laterality Modality Chest, Thoracic RST LOS, Tho racic ARZ LOS, Thoracic FLA LOS N/A Digital Radiography Impressions 10/17/2023 7:14 AM CDT Acute appearing mildly displaced posterior/lateral right fifth rib fracture new since 09/05/2020. Possible additional minimally displaced posterior right fourth-sixth rib fractures. Cardiomegaly not appreciably changed since 09/05/2020. Normal-appearing pulmonary vascularity. Lungs clear. No pleural effusions or pneumothorax. Tortuous calcified aorta. Stable hardware fixation of a healed posterior left eighth rib fracture. Diffuse hypertrophic changes thoracic spine. Moderate degenerative changes both shoulders. Narrative 10/17/2023 7:14 AM CDT EXAM: ??DX CHEST AP OR PA AND LATERAL 2 VIEWS Procedure Note Jeevan Titus M.D. - 10/17/2023 EXAM: DX CHEST AP OR PA AND LATERAL 2 VIEWS IMPRESSION: Acute appearing mildly displaced posterior/lateral right fifth ribfracture new since 09/05/2020. Possible additional minimally displacedposterior right fourth-sixth rib fractures. Cardiomegaly not appreciablychanged since 09/05/2020. Normal-appearing pulmonary vascularity. Lungs clear. No pleural effusionsor pneumothorax. Tortuous calcified aorta. Stable hardware fixation of ahealed posterior left eighth rib fracture. Diffuse hypertrophic changesthoracic spine. Moderate degenerative changes both shoulders. us Sonia Lucas M.D., M.S. IMG DIAGNOSTIC IMAGING PROCEDURES Final Result * (ABNORMAL) Hepatic Function Panel (10/17/2023 6:41 AM CDT) Bilirubin, Total, S 0.4 0.0 - 1.2 mg/dL 10/17/2023 7:30 AM CDT DTL Bilirubin, Direct, S <0.2 0.0 - 0.3 mg/dL 10/17/2023 7:30 AM CDT DTL Aspartate Aminotransferase (AST), S 18 8 - 43 U/L 10/17/2023 7:30 AM CDT DTL Alanine Aminotransferase (ALT), S 16 7 - 45 U/L 10/17/2023 7:30 AM CDT DTL Alkaline Phosphatase, S 53 35 - 104 U/L 10/17/2023 7:30 AM CDT DTL Albumin, S 3.9 3.5 - 5.0 g/dL 10/17/2023 7:30 AM CDT DTL Protein, Total, S 6.0(L) 6.3 - 7.9 g/dL 10/17/2023 7:30 AM CDT DTL Blood (Blood, Venous) 10/17/2023 6:41 AM CDT 10/17/2023 7:07 AM CDT Darius Reeder M.D., M.B.A. LAB BLOOD ADD-ON Janet l Result [facility] [address] [place] [address], [place] DTL [facility] [address] [place] [address] * (ABNORMAL) CBC with Differential, Blood (10/17/2023 6:41 AM CDT) Hemoglobin 10.7(L) 11.6 - 15.0 g/dL 10/17/2023 6:49 AM CDT STMA Hematocrit 32.5(L) 35.5 - 44.9 % 10/17/2023 6:49 AM CDT STMA Erythrocytes 3.52(L) 3.92 - 5.13 x10(12)/L 10/17/2023 6:49 AM CDT STMA MCV 92.3 78.2 - 97.9 fL 10/17/2023 6:49 AM CDT STMA RBC Distrib Width 14.0 12.2 - 16.1 % 10/17/2023 6:49 AM CDT STMA Platelet Count 265 157 - 371 x10(9)/L 10/17/2023 6:49 AM CDT STMA Leukocytes 10.1(H) 3.4 - 9.6 x10(9)/L 10/17/2023 6:49 AM CDT STMA Neutrophils 7.68(H) 1.56 - 6.45 x10(9)/L 10/17/2023 6:49 AM CDT DHPM Lymphocytes 1.58 0.95 - 3.07 x10(9)/L 10/17/2023 6:49 AM CDT STMA Monocytes 0.68 0.26 - 0.81 x10(9)/L 10/17/2023 6:49 AM CDT STMA Eosinophils 0.06 0.03 - 0.48 x10(9)/L 10/17/2023 6:49 AM CDT STMA Basophils 0.07 0.01 - 0.08 x10(9)/L 10/17/2023 6:49 AM CDT STMA Blood (Blood, Venous) 10/17/2023 6:41 AM CDT 10/17/2023 6:46 AM CDT us Darius Reeder M.D., M.B.A. LAB BLOOD ADD-ON Janet l Result [facility] [address] [place] [address], [facility] STMA [facility] [address] [place] [address] [facility] [address] [place] [address] * CT Cervical Spine without IV Contrast (10/17/2023 6:27 AM CDT) Anatomical Region Laterality Modality Cervical Spine, Neuroradiolo gy RST [facility], Neuroradiology ARZ [facility], Neuroradiology FLA LOS N/A Computed Tomography, Compute d Tomography 10/17/2023 6:24 AM CDT Impressions 10/17/2023 8:28 AM CDT Negative for acute traumatic finding the cervical spine. Advanced spondylotic changes as described. Narrative 10/17/2023 8:28 AM CDT EXAM: CT CERVICAL SPINE WITHOUT IV CONTRAST COMPARISON: CT cervical spine 02/09/2012 FINDINGS: Negative for acute fracture or traumatic malalignment. Spondylotic changes cervical spine. Hypertrophic pannus formation about the dens. Diffuse moderate disc height loss. Multilevel disc osteophytes result in multilevel effacement of the spinal canal which is greatest at C4-C5. Moderate cervical facet arthropathy. Multilevel neural foraminal narrowing most notably moderate left C2-C3, moderate bilateral C3-C4, advanced bilateral C4-C5, C5-C6, and moderate bilateral C6-C7. Normal prevertebral soft tissues. Procedure Note Martin Mcgarry M.D. - 10/17/2023 EXAM: CT CERVICAL SPINE WITHOUT IV CONTRAST COMPARISON: CT cervical spine 02/09/2012 FINDINGS: Negative for acute fracture or traumatic malalignment.Spondylotic changes cervical spine. Hypertrophic pannus formation aboutthe dens. Diffuse moderate disc height loss. Multilevel disc osteophytesresult in multilevel effacement of the spinal canal which is greatest at C4-C5. Moderate cervical facetarthropathy. Multilevel neural foraminal narrowing most notably moderateleft C2-C3, moderate bilateral C3-C4, advanced bilateral C4-C5, C5-C6, andmoderate bilateral C6-C7. Normal prevertebral soft tissues. IMPRESSION: Negative for acute traumatic finding the cervical spine. Advancedspondylotic changes as described. Sonia Lucas M.D., M.S. IMG CT PROCEDURES Final Result * CT Head without IV Contrast (10/17/2023 6:27 AM CDT) Anatomical Region Laterality Modality Head, Neuroradiology RST LOS , Neuroradiology ARZ [facility], Neuroradiology [facility] N/A Computed Tomography, Compute d Tomography 10/17/2023 6:22 AM CDT Impressions 10/17/2023 8:26 AM CDT 1. Negative for acute traumatic intracranial finding. 2. Severe leukoaraiosis. 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 Consider further evaluation with MRI if clinically indicated. 3. Small indeterminate right parotid nodule. Recommend dedicated nonemergent ultrasound for better characterization. Narrative 10/17/2023 8:26 AM CDT EXAM: CT HEAD WITHOUT IV CONTRAST COMPARISON: CT head without 02/09/2012 FINDINGS: No acute intracranial hemorrhage or extra-axial fluid collections. No mass effect or midline shift. Patent basal cisterns. Moderate-severe leukoaraiosis. Hypoattenuation and loss of the turk-white differentiation about the right frontoparietal region is new since 02/09/2012 but is compatible with a chronic infarct (circa 06/30). Similar more focal chronic encephalomalacia within the right parieto-occipital region. Moderate generalized parenchymal volume loss with associated ex vacuo prominence of the ventricular system, also progressed since the comparison exam. Intact calvarium. Mild bilateral maxillary mucosal thickening. Lens replacements. 0.9 cm right parotid nodule, increased since 2011. Procedure Note Martin Mcgarry M.D. - 10/17/2023 EXAM: CT HEAD WITHOUT IV CONTRAST COMPARISON: CT head without 02/09/2012 FINDINGS: No acute intracranial hemorrhage or extra-axial fluidcollections. No mass effect or midline shift. Patent basal cisterns. Moderate- severeleukoaraiosis. Hypoattenuation and loss of the turk-white differentiationabout the right frontoparietal region is new since 02/09/2012 but iscompatible with a chronic infarct (circa 06/30). Similar more focal chronic encephalomalacia within the rightparieto-occipital region. Moderate generalized parenchymal volume losswith associated ex vacuo prominence of the ventricular system, alsoprogressed since the comparison exam. Intact calvarium. Mild bilateral maxillary mucosal thickening. Lensreplacements. 0.9 cm right parotid nodule, increased since 2011. IMPRESSION: 1. Negative for acute traumatic intracranial finding. 2. Severe leukoaraiosis. New since 02/09/2012 but chronic appearinginfarcts involving the right frontoparietal and right parietal occipitallobes. Consider further evaluation with MRI if clinically indicated. 3. Small indeterminate right parotid nodule. Recommend dedicatednonemergent ultrasound for better characterization. us Sonia Lucas M.D., M.S. IMG CT PROCEDURES Final Result * ECG 12 Lead (10/17/2023 5:52 AM CDT) Ventricular Rate ECG/Min 75 BPM MUSE MT Interval 178 ms MUSE QRSD Interval 156 ms MUSE QT Interval 470 ms MUSE QTC Interval 524 ms MUSE P [place] 57 degrees MUSE R [place] -8 degrees MUSE T Wave [place] 23 degrees MUSE 10/17/2023 5:52 AM CDT 10/17/2023 2:17 PM CDT Impressions MUSE - 10/17/2023 5:55 AM CDT Normal sinus rhythm Right bundle branch block Cannot rule out Inferior infarct Nonspecific ST and T wave abnormality Prolonged QT When compared with ECG of 11-Apr-2021 16:21, MT interval has decreased QT has lengthened Reviewed by KENYON Eugene Narrative Procedure Note Javan Driscoll M.D. - 10/17/2023 IMPRESSION: Normal sinus rhythm Right bundle branch block Cannot rule out Inferior infarct Nonspecific ST and T wave abnormality Prolonged QT When compared with ECG of 11-Apr-2021 16:21, MT interval has decreased QT has lengthened Reviewed by KENYON Eugene us Sonia Lucas M.D., M.S. ECG ORDERABLES Edited Result - Final MUSE NA * INR Reflex, POCT, Blood (10/15/2023 10:59 AM CDT) INR Reflex, POCT, B 2.1 10/15/2023 11:00 AM CDT [facility] Comment: ----ADDITIONAL INFORMATION---- Standard intensity warfarin therapeutic range: 2.0 to 3.0 ?? High intensity warfarin therapeutic range: 2.5 to 3.5 Blood (Blood, Capillary) 10/15/2023 10:59 AM CDT 10/15/2023 10:59 AM CDT Mich Luevano D.O. LAB POCT ORDERABL ES - DEVICE Final Result Performing Organization Address [facility] Co de Phone Number [facility] [address] [place] [address], [facility] FMKA [facility] [address] [place] [address] * Albumin, Random, Urine (12/01/2021 3:22 PM CDT) Albumin, Random, U <5.0 mg/L 2021 8:34 AM CDT DTL Comment: ----ADDITIONAL INFORMATION---- This test has been modified from the donor processor's instructions. Its performance characteristics were determined by [facility] in a manner consistent with CLIA requirements. This test has not been cleared or approved by the U.S. Food and Drug Administration. Creatinine 90 mg/dL 12/01/2021 6:29 PM CDT DTL Albumin/Creatinine Ratio <6 <25 mg/g 12/02/2021 8:34 AM CDT DTL Comment: This ratio may not correspond with the reference range because one or both of the values used to calculate the ratio was above or below the quantification limits. Urine (Urine, Midstream) 12/01/2021 3:22 PM CDT 12/02/2021 7:12 AM CDT Li Riggs D.O. LAB URINE ORDERABLES Fi nal Result Performing Organization Address City/[facility]/ZIP Co de Phone Number [facility] [address] [place] [address], [place] DTL [facility] [address] [place] [address] from Last 3 Months or Most Recently Relevant to Health Maintenance Insurance [facility] [employer]IC[facility] Advance Directives For more information, please contact: [phone] * DNR (Latest Code Status on File) Date Activated Date Inactivated Comments 10/17/2023 3:37 PM 10/20/2023 4:30 PM Question Answer Comments DNR (Do Not Resuscitate): Discussed-Patient * Full Code Date Activated Date Inactivated Comments 10/24/2020 12:01 AM 10/26/2020 4:24 PM Question Answer Comments Full Code: Discussed * Full Code Date Activated Date Inactivated Comments 09/05/2020 8:40 PM 09/12/2020 1:55 PM Question Answer Comments Full Code: Discussed 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 [address] [place] [id number] PCP - General 09/12/22
--- OUTSIDE RECORDS SUMMARY | 2024-01-11 04:36 | XMS_ITS | Referral Summary ---
Author Organization [facility] Address [address] [place] [address] Care Team Providers Care Glass Etcher Helper Name Role Phone Mich Luevano D.O. Primary Care Pro vider Source Comments Patient records contain information from all sites at [facility]. For routine questions regarding patient records, call [phone] during business hours, M-F 8:00 AM - 5:00 PM Central Time. Record requests for emergency care only can be directed to [phone] at any time.[facility] Encounters Date Type Department Care Team Description 01/07/2024 Clinical Communication Department of Anticoagulation in [place], [place] [address] [place] [address] Alka Chaudhari R.N. Anticoagulation (Medication interaction) 01/06/2024 Clinical Communication Department of Family Medicine, [place], [place] [address] [place] [phone] Mich Hickman D.O. PandaDoc Form (Order [id number]) 01/06/2024 3:30 PM CDT Office Visit Department of Family Medicine, [place], [place] [address] [place] [phone] Mich Hickman D.O. Abscess Skin (Primary Dx); Cerumen Impacted Bilateral; Morbid Obesity (HCC); Candidiasis Intertrigo; Health Maintenance Examination Adult; Depression Major Recurrent Moderate (HCC) 01/05/2024 Nurse Triage Department of Family Medicine, [address] [phone] Isidra Vincent R.N. Appt Request 01/05/2024 Clinical Communication Department of Family Medicine, [address] [phone] Mich Hickman D.O. PandaDoc Form (Physicians Order) 01/04/2024 Clinical Communication Department of [facility], [address] [phone] Mich Hickman D.O. Phone Contact (Update ) 12/31/2023 1:30 PM CDT Anticoagulation Visit Department of Anticoagulation in [place], [place] [address] [place] [address] Mich Hickman D.O. 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 Cardiomyopathy Dilated (HCC) (Primary Dx); Chronic Systolic (Congestive) Heart Failure (HCC); Thrombus Intracardiac; Correction (Current) Anticoagulant Treatment; Monitoring For Therapeutic Drug Therapy 12/21/2023 Orders [facility] D.[facility]. 12/20/2023 Clinical Communication Department of Family [facility], [address] [phone] Hofschulte-Be ckMich D.O. 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 PandaDoc Form (OT order) 12/08/2023 1:15 PM CDT Anticoagulation Visit Department of Anticoagulation in [place], [place] [address] [place] [phone] Luis Alfredofschulte-Be ckMich D.O. 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 PandaDoc Form (Order [id number]) 12/06/2023 Refill Department of Family Medicine, [place], [place] [address] [place] [address] Luis Alfredofschulte-Be Mich cardona D.O. 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 Panda Doc Form (Order #[id number]) 11/19/2023 Clinical Communication Department of Family Medicine, [address] [phone] Luis Alfredofschulte-Be Mich cardona D.O. Order Request 11/19/2023 Clinical Communication Department of Family Medicine, [address] [phone] Luis Alfredo Maravilla R.N. Follow-up (Appt today) 11/12/2023 Clinical Communication Department of Family Medicine, [address] [phone] Luis Alfredofschulte-Be Mich cardona D.O. Med Question 10/25/2023 Clinical Communication Department of Family Medicine, [address] [phone] Hardychulte-Be Mich cardona D.O. 10/21/2023 Clinical Communication Department of Anticoagulation in [place], [place] [address] [place] [address] Stacey Suero, Dian Anticoagulation (Hospital discharge, SNF admit) 10/20/2023 Clinical Communication Department of Family Medicine, [place], [place] [address] [place] [address] Mich Hickman D.O. 10/17/2023 5:45 AM CDT - 10/20/2023 2:25 PM CDT Hospital Encounter [facility], [facility], Second Floor [address] [place] [address] Sonia Lucas M.D., M.S. Rafa Mayberry M.D., M.P.H. [place] [employer] M.D. 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) Anticoagulant Treatment; Monitoring For Therapeutic Drug Therapy; Fracture Rib Multiple Closed Initial Right; Fracture Ilium Avulsion Displaced Closed Initial Left (HCC) Discharge Disposition: Half-Way Facility 10/19/2023 Clinical Communication Department of Family Medicine, [facility], [place], [place] [address] [place] [phone] Mich Hickman D.Hermes Order Request 10/15/2023 10:10 AM CDT Anticoagulation Visit Department of Anticoagulation in [place], [place] [address] [place] [phone] Li Riggs, Harry Thrombus Intracardiac (Primary Dx); Cardiomyopathy Dilated (HCC); Chronic Systolic (Congestive) Heart Failure (HCC); 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 Correction (Current) Anticoagulant Treatment; Thrombus Intracardiac; Congestive Heart Failure Ejection Fraction Less Than 35 Percent And [place] Heart Association Class 2-3 (HCC); Monitoring For Therapeutic Drug Therapy; Cardiomyopathy Dilated (HCC); Chronic Systolic (Congestive) Heart Failure ([facility]) Discharge Disposition: Home or Self Care from Last 3 Months Allergies No known active allergies Medications * [...] HFA) 90 mcg/actuation inhalerIndication s:Asthma Mild Intermittent ([facility]) Inhale 2 puffs every 6 (six) hours [...] Glomerular Filtration Rate (GFR) 30 To 44 ([facility]),Cardiomyopa thy Dilated ([facility]) Take 1 tablet (25 mg total) by [...] total) by mouth every other day. 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 15 g 1 01/06/20 24 Active buPROPion XL (Wellbutrin XL) 150 mg [...] morning and evening meals. 20 capsule 01/06/20 24 Active doxycycline hyclate (Vibramycin) 100 mg capsule Take 1 capsule (100 mg total) by mouth 2 (two) times a day. 20 capsule 01/06/20 Active buPROPion XL (Wellbutrin XL) 150 mg 24 hr tablet Take 3 tablets (450 mg total) by mouth every morning. 270 tablet 3 10/05/19 24 Discontin ued(Reord er) diclofenac sodium (Voltaren) 1 % gel Apply 2 g topically 4 (four) times a day as needed (pain). Apply to painful joints and muscles. 10/20/19 Discontin ued(Thera py completed ) lidocaine (Lidoderm) 5 % adhesive patch,medicated Place 1 patch on the skin daily. Apply to painful areas. 10/20/19 Discontin ued(Thera py completed ) nystatin (Nystop) 100,000 unit/gram powder Apply 1 Application topically 2 (two) times a day. Apply to groin folds. 10/20/19 Discontin ued(Reord er) oxyCODONE (Roxicodone) 5 mg immediate release tabletIndications :Acute Pain Take 0.5-1 tablets (2.5-5 mg total) by mouth every 4 (four) hours as needed for severe pain or score 7-10 of 10 (Give 2.5 mg for pain score 4-6 or give 5 mg for pain score 7-10) Indication: Acute Pain. 18 tablet 10/20/19 Discontin ued(Thera py completed ) Active Problems [...] cares, use of resources and specialty equipment. Correction (Current) Anticoagulant Treatment 09/12 Overview (09/22/2020): Intracardiac thrombus Assessment & Plan (10/07/2020 4:06 PM CDT): She has followed with [facility] anticoagulation team. Assessment & Plan (09/22/2020 2:16 [...] 3 to 6 months. Will follow with [facility] anticoagulation team. Congestive Heart Failure Eje ction Fraction Less Than 35 Percent And [place] Heart Association Class 2-3 09/13/2020 Overview (04/11/2021): [...] ?? Assessment & Plan (03/11/2021 2:46 PM CONVENTIONAL UNDERWRITER): Handicap parking permit renewed for 6 years [...] have gone ahead and refer her to [facility] Cardiology for their assistance in managing her [...] at that time. Plan to schedule the [facility] Cardiology follow-up and echo prior. ECG also ordered today for an irregular pulse. 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 [place]us lymph node biopsy with isotope and dye (2011). Sciatica Left 04/15/2010 Hyperlipidemia On Treatment 07/11/2004 Overview (09/22/2020): Maintained on simvastatin. Assessment & Plan (10/07/2020 4:03 PM CDT): Simvastatin was changed to rosuvastatin due to therapeutic interchange. Assessment & Plan (09/22/2020 2:10 PM CDT): Changed to rosuvastatin per pharmacy therapeutic interchange. Diabetes Mellitus Type 2 09/12/2002 Overview (11/17/2023): DM diagnosed: 1998 Complications: heart failure Current Medications: metformin XR [...] smoker Assessment & Plan (03/11/2021 3:05 PM CONVENTIONAL UNDERWRITER): Will continue on current regimen. She will [...] months Next labs: 6 months Referrals: None [facility] Tobacco None: No Aspirin: yes Statin Use [...] if celiac negative, Order fecal calprotectin (Epic: [id number]) and fecal fat (Epic: [id number]). Categorize test results into 1 of 3 types of chronic diarrhea, per [facility] Expert chronic diarrhea algorithm. 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 Immunizations Name Administration Dates Next Due HZV [...] trivalent vaccine (6 months and older)(PF) 12/17/2019,01/30/2010 Social History Tobacco Use Types Packs/Day Years Used Date Smoking Tobacco: Never Passive Smoke Exposure: Never Smokeless Tobacco: Never Tobacco Cessation:Counseling Given: Not Answered Alcohol Use Standard Drinks/Week Comments Yes 1 (1 standard drink = 0.6 oz pur e alcohol) [facility] [employer] Answer Date Recorded In the past 12 months has e [employer] gas, oil, or water [facility] threatened to shut off services in [...] often do you attend chur ch or restorationism services? More than 4 times per year 06/15/2022 Do you belong to any clubs o r organizations such as caodaism groups, unions, fraternal or athletic groups, or [...] Answer Date Recorded PHQ-2 Score 6 10/05/2023 [facility] Occupat ional [facility] - Occupational Stress Questionnaire Answer Date Recorded [...] your living situation today? I have a [facility] place to live 10/17/2023 Education Answer Date Recorded What is the highest level of school you have completed or the highest degree you have received? Some college, no degree 09/28/2018 Comments No Sex and Gender Information Value Date Recorded Sex Assigned at Female 09/22/2017 1:45 PM CDT Legal Sex Female 7:19 AM CONVENTIONAL UNDERWRITER Gender Identity Female 09/22/2017 1:45 PM CDT [...] st Contact Info) Description 01/19/2024 3:30 PM CONVENTIONAL UNDERWRITER Nurse Only Department of Family Medicine, [facility], in [place], [place] [address] [place] [phone] Goals Goal Patient Goal Type Associated Problems Recent Progress Patient-Stated? Author Blood Pressure < 140/90 Blood Pressure 138/77(01/05 3:23 PM CDT) No Honey King R.N. Do one productive activity per day General On track(2018 1:31 PM CDT) Yes Teodora Horvath R.N. Note: i.e. vegetable packer: clean the kitchen, vacuum, laundry 11/09 is doing more but not everyday 11/23 doing that most of the time, ie laundry, clean kitchen, clean bedroom 12/07/18 been gone a lot so hard to do this Engage in social activities Lifestyle On track(2018 1:32 PM CDT) No Teodora Horvath R.N. Note: Pt will look into attending Senior vitality group at [facility] starting in November 20 went to funerals, talked with another lady she did not know there, doing [place], swim aerobics, visited her son 11/23/18 went to [place], going to [place] to visit relatives, going to [employer] 12/07/18 went to [place] to visit mom and went to concert in [place]. Made a new friend. Hemoglobin A1c < 7.0 Result Component 9.9(05/06/19 24 1:03 PM CONVENTIONAL UNDERWRITER) No Honey King ROsvaldoN. PHQ-9 Total Score (max 27) < 5 Symptom Management 16( 4 2:19 PM CDT) No Teodora Horvath R.N. Medical Devices Implanted Type Area Bulb Inspector Device Identifier Shelf Expiration Date Model / Serial / Lot Alpine Stent 3.5 X 15 - Valderrama [id number] Implanted:Qty: 1 on 12/24/2016 Cardiac Stent Berry Description:Device Manufactu rer - [employer]. Device Status Text - [id number]. Screw-Matrixrib S-Tap Lock 2.9 X 12mm - Val[place]ama [id number] Implanted:Qty: 5 on 02/16/2012 Hardware e.g. pins/screws/ rods Depuy Synthes Description:Device Manufactu rer - Synthes. Device Status Text - [id number]. Plate-Matrixrib Univ. 8 Holes - Valderrama [id number] Implanted:Qty: 1 on 02/16/2012 Hardware e.g. pins/screws/ rods Depuy Synthes Description:Device Manufactu rer - Synthes. Device Status Text - [id number]. Screw-Matrixrib S-Tap Lock 2.9 X 10mm - Val[place]ama [id number] Implanted:Qty: 3 on 02/16/2012 Hardware e.g. pins/screws/ rods Depuy Synthes Description:Device Manufactu rer - Synthes. Device Status Text - [id number]. Procedures Procedure Name Priority Date/Time Associated Diagnosis Comments CT RMVL IMPACT CERUMEN IRRIG UNILAT Routine 01/06/2024 [...] POCT, B Routine 10/15/2023 10:59 AM CDT Correction (Current) Anticoagulant Treatment Thrombus Intracardiac Congestive Heart Failure Ejection Fraction Less Than 35 Percent And [place] Heart Association Class 2-3 (HCC) Monitoring For Therapeutic Drug Therapy Cardiomyopathy Dilated (HCC) Chronic Systolic (Congestive) Heart Failure (HCC) HEMOGLOBIN A1C, B Routine 05/06/2023 1:0 3 PM CONVENTIONAL UNDERWRITER Diabetes Mellitus Type 2 (HCC) ALBUMIN, RANDOM, U Routine 12/01/2021 3: 22 PM CDT Diabetes Mellitus Type 2 (HCC) from Last 3 Months or Most Recently Relevant to Health Maintenance Results * CT RMVL IMPACT CERUMEN IRRIG UNILAT (01/06/2024 3:30 [...] quality: normal Complications: no immediate complications ?? Mich Luevano D.O. PROCEDURE/MINOR S URGICAL ORDERABLES Final Result Performing Organization Address [facility] de Phone Number MMODAL NA * Prothrombin Time (PT) (12/31/2023) Only the most recent of11 resultswithin the time period is included. EXT INR 2.80 OTHER (SPE CIFY IN MINE SAFETY ENGINEER) Comment:HHC/POC Blood (Blood, Venous) Historical Provider LAB BLOOD ADD-ON Final Resul t Performing Organization Address City/[facility] Co de Phone Number OTHER (SPECIFY IN MINE SAFETY ENGINEER) N/A * (ABNORMAL) Glucose, POCT (10/20/2023 12:05 PM CDT) Only the most recent of14 resultswithin the time period is included. [facility] Glucose, POCT, B 241(H) 70 - 140 mg/dL 10/20/2023 12:21 PM CDT PCLX Site Capillary 10/20/2023 12:21 PM CDT PCLX Last Intake 2-3 hours 10/20/2023 12:21 PM CDT PCLX Blood 10/20/2023 12:0 5 PM CDT 10/20/2023 12:21 PM CDT us Unknown Provider LAB POCT ORDERABLES-MANUAL Janet l Result POC [facility] [address] [place] [address], [facility] PCLX [facility] POC [address] [place] [address] * (ABNORMAL) CBC without Differential (10/19/2023 6:00 AM CDT) [facility] Hemoglobin 10.4(L) 11.6 - 15.0 g/dL 10/19/2023 [...] 6:00 AM CDT 10/19/2023 6:46 AM CDT Annabelle Wright APRN, C.N.P. LAB BLOOD ADD-ON Janet l Result [facility] [address] [place] [address], [facility] DTL [facility] [address] [place] [address] * (ABNORMAL) Basic Metabolic Panel (10/19/2023 6:00 AM CDT) Only the most recent of2 resultswithin the time period is included. Pathologist [facility] Potassium, S 4.2 3.6 - 5.2 mmol/L [...] CDT 10/19/2023 7:06 AM CDT Annabelle Wright APRN, C.N.P. LAB BLOOD ADD-ON Janet l Result [facility] [address] [place] [address], [place] DTL [facility] [address] [place] [address] * CT Hip Left without IV Contrast [...] of the fracture fragment. Mike Patricia M.D. IMG CT PROCEDURES Final Re sult * DX [...] and pelvis. Vascularcalcifications. Sonia Lucas M.D., M.S. [facility] DIAGNOSTIC IMAGING PROCEDURES Final Result * DX [...] changesthoracic spine. Moderate degenerative changes both shoulders. Sonia Lucas M.D., M.S. [facility] DIAGNOSTIC [facility]AG[facility] PROCEDURES Final Result * (ABNORMAL) [...] M.B.A. LAB BLOOD ADD-ON Janet l Result [place] [address] [place] [address], [facility] [place] [address] [place] [address] * (ABNORMAL) CBC with Differential, Blood (10/17/2023 [...] 6:41 AM CDT 10/17/2023 6:46 AM CDT Darius Reeder M.D., M.B.A. LAB BLOOD ADD-ON Janet l Result [facility] [address] [place] [address], [facility] STMA [facility] [address] [place] [address] DHPM [facility] [address] [place] [address] * CT Cervical Spine without IV Contrast (10/17/2023 6:27 AM CDT) Anatomical Region Laterality Modality Cervical Spine, Neuroradiolo gy RST LOS, Neuroradiology SHEY CHU, Neuroradiology FLJaiden LOS N/A Computed Tomography, Compute d Tomography [...] changes as described. Sonia Lucas M.D., M.S. [facility] CT PROCEDURES Final Result * CT Head without IV Contrast (10/17/2023 6:27 AM CDT) Anatomical Region Laterality Modality Head, Neuroradiology RST LOS , Neuroradiology ARZ LOS, Neuroradiology FLA LOS N/A Computed Tomography, Compute [...] CDT) Ventricular Rate ECG/Min [address] Interval 178 ms MUSE QRSD Interval 156 ms MUSE QT Interval 470 ms MUSE QTC Interval 524 ms MUSE P Madison 57 degrees MUSE R Madison -8 degrees MUSE T Wave [place] 23 degrees MUSE 10/17/2023 5:52 AM CDT 10/17/2023 2:17 PM CDT Impressions MUSE - 10/17/2023 5:55 AM CDT Normal sinus rhythm Right bundle branch block Cannot rule out Inferior infarct Nonspecific ST and T wave abnormality Prolonged QT When compared with ECG of 11-Apr-2021 16:21, CT interval has decreased QT has lengthened Reviewed by KENYON Eugene Narrative Procedure Note Javan Driscoll M.D. - 10/17/2023 IMPRESSION: Normal sinus rhythm Right bundle branch block Cannot rule out Inferior infarct Nonspecific ST and T wave abnormality Prolonged QT When compared with ECG of 11-Apr-2021 16:21, CT interval has decreased QT has lengthened Reviewed by KENYON Eugene Result [facility] Sonia Lucas M.D., M.S. ECG ORDERABLES Edited [...] - DEVICE Final Result Performing Organization Address [facility] Co de Phone Number [facility] [address] [place] [address], [facility] FMKA [facility] [address] [place] [address] * Albumin, Random, Urine (12/01/2021 3:22 PM CDT) Albumin, Random, U <5.0 mg/L 2021 8:34 AM CDT DTL Comment: ----ADDITIONAL INFORMATION---- This test has been modified from the agricultural plow operator's instructions. Its performance characteristics were determined by [facility] in a manner consistent with CLIA requirements. [...] ORDERABLES Fi nal Result Performing Organization Address City/[facility] Co de Phone Number [facility] [address] [place] [address], [place] [facility] [address] [place] [address] from Last 3 Months or Most Recently Relevant to Health Maintenance Insurance [facility] [place] [address] MEDICARE Advance Directives For more information, please contact: [phone] * DNR (Latest Code Status on File) [...] Answer Comments Full Code: Discussed Care Teams Glass Etcher Helper Relationship Specialty Start Date End Date Mich Luevano D.O. [address] [place] [phone] PCP - General 09/12/22
--- OUTSIDE RECORDS SUMMARY | 2024-01-11 04:36 | XMS_ITS ---
Author Organization [facility] Address [address] [place] [address] Care Team Providers Care Report Specialist Name Role Phone Unavailable Unavailable Unavailable Surgery Details Not on file Complications Check Surgery Details section. Procedure Estimated Blood Loss Check Surgery Details section. Procedure Findings Check Surgery Details section. Procedure Specimens Taken Check Surgery Details section.
--- OUTSIDE RECORDS SUMMARY | 2024-01-11 04:37 | XMS_ITS | Encounter Summary ---
Author Organization [facility] Address [address] [place] [address] Care Team Providers Care Supervisor Grips Name Role Phone Mich Luevano D.O. Primary Care Pro vider Reason for Visit * Reason Onset Date Comments Appt Request 01/05/2024 Encounter Details Date Type Department Care Team (Late st Contact Info) Description 01/05/2024 Nurse Triage Department of Family Medicine, [facility], in [place], [place] [address] [place] [address] Isidra Vincent R.N. [address] [place] [phone] Appt Request Social History Tobacco Use Types Packs/Day Years Used Date Smoking Tobacco: Never Passive Smoke Exposure: Never Smokeless Tobacco: Never Alcohol Use Standard Drinks/Week Comments Yes 1 (1 standard drink = 0.6 oz pur e alcohol) [facility] Utilities Answer Date Recorded In the past 12 months has e electric, gas, oil, or water company threatened to shut off services in your [...] any clubs o r organizations such as samaritan groups, unions, fraternal or athletic groups, or [...] Answer Date Recorded PHQ-2 Score 6 10/05/2023 [facility] [place] of Occupat ional Health - Occupational Stress [...] your living situation today? I have a [facility] place to live 10/17/2023 Education Answer Date Recorded What is the highest level of school you have completed or the highest degree you have received? Some college, no degree 09/28/2018 Comments No Sex and Gender Information Value Date Recorded Sex Assigned at Female 09/22/2017 1:45 PM CDT Legal Sex Female 7:19 AM HOSE TUBING BACKER Gender Identity Female 09/22/2017 1:45 PM CDT Sexual Orientation Straight 09/22/2017 1: 45 PM CDT documented as of this encounter Miscellaneous Notes * Telephone Encounter - Isidra Vincent R.N. - 01/05/2024 4:14 PM CDT Chief Complaint / Reason for Call Patient is a 83 y.o. female calling regarding Appt Request. Her daughter calls stating she has an abscess on her lower abdomen for about one week. It has oozed fluid and two days ago it burst and is draining blood and pus. She is afebrile. The recommended disposition is See a health care provider within 3 days. She was scheduled in clinic tomorrow via one-click. Encouraged patient to call back with new, worsening or persistent symptoms and patient verbalized agreement and understanding. Reason for Disposition Boil > 1/2 inch across (> 12 mm; larger than a marble) Protocols used: Boil (Skin Abscess)-ADULT- Care Advice Patient/Caregiver understands and will follow care advice?: Yes, able to teach back Boil (Skin Abscess)-ADULT- Nurse Isidra Villegas Jan 05, 2024 04:17 PM Care Advice SEE PCP WITHIN 3 DAYS TREATMENT - GENERAL: * Do not squeeze a boil or area of skin infection. Reason: This can push bacteria deeper into the skin. * Wash the area once a day with soap and water. * Avoid touching or scratching the area. * Keep your hands clean. Wash them with soap and water. TREATMENT FOR A BOIL - APPLY MOIST HEAT: * Heat can help bring the boil 'to a head' so that it can open and the pus can drain out. * Apply a warm, wet washcloth to the boil for 15 minutes 3 times a day. * If the boil drains pus: continue to apply a warm wet washcloth to the boil 3 times a day for three more days. CALL BACK IF: * Severe pain or fever occurs * Widespread rash occurs * Redness spreads beyond the boil * Boil becomes over 2 inches (5 cm) across * You become worse documented in this encounter Plan of Treatment Upcoming Encounters Date Type Department Care Team (Late st Contact Info) Description 01/19/2024 3:30 PM HOSE TUBING BACKER Nurse Only Department of Family Medicine, [facility], in [place], [place] [address] [place] [address] documented as of this encounter Goals Goal Patient Goal Type Associated Problems Recent Progress Patient-Stated? Author Blood Pressure < 140/90 Blood Pressure 138/77(01/05 3:23 PM CDT) No Honey King R.N. Do one productive activity per day General On track(2018 1:31 PM CDT) Yes Teodora Horvath R.N. 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 Note: Pt will look into attending Senior vitality group at [facility] starting in November 20 went to funerals, talked with another lady she did not know there, doing [employer], swim aerobics, visited her son 11/23/18 went to [employer], going to [place] to visit relatives, going to [employer] 12/07/18 went [place] to visit mom and went to concert in [place]. Made a new friend. Hemoglobin A1c < 7.0 Result Component 9.9(05/06/19 24 1:03 PM HOSE TUBING BACKER) No Honey King ROsvaldoN. PHQ-9 Total Score (max 27) < 5 Symptom Management 16( 4 2:19 PM CDT) No Teodora Horvath RLiyah documented as of this encounter Visit Diagnoses Not on filedocumented in this encounter Additional Health Concerns Assessment Noted Time PHQ-9 Depression Total Score: 16 024 2:19 PM CDT documented as of this encounter Care Teams Supervisor Grips Relationship Specialty Start Date End Date Mich Luevano D.O. [address] [place] [address] PCP - General 09/12/22 documented as of this encounter
--- OUTSIDE RECORDS SUMMARY | 2024-01-11 04:37 | XMS_ITS | Encounter Summary ---
Author Organization [facility] Address [address] [place] [address] Care Team Providers Care Inspector Heating And Refrigeration Name Role Phone Mich Luevano D.O. 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 [address] [place] [address] Phone: tel: fax: [facility] Referral ID Status Reason Start Date Expiration Date Visits Re quested Visits Authorized [id number] Closed 12/15/2023 06/15/2025 1 1 Reason for Visit * Outpatient (Routine) - Closed Specialty Diagnoses / Procedures Referred By Contac t Referred To Contact Anticoagulation Mich Luevano D.O. [address] [place] [address] Phone: tel: fax: [facility] Referral ID Status Reason Start Date Expiration Date Visits Re quested Visits Authorized [id number] Closed 12/08/2023 06/08/2025 1 1 Encounter Details Date Type Department Care Team (Latest Contact Info) Description 12/15/2023 3:00 PM CDT Anticoagulation Visit Department of Anticoagulation in [place], [place] [address] [place] [address] Hailey cardona, Mich Wang D.O. 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 More than 4 times per year 06/15/2022 Do you belong to any clubs o r organizations such as episcopal groups, unions, fraternal or athletic groups, or [...] Answer Date Recorded PHQ-2 Score 6 10/05/2023 [facility] of Occupat ional Health - Occupational Stress [...] medical appointments or from getting medications? No 08/0 06/2023 In the past 12 months, has [...] your living situation today? I have a [facility] place to live 10/17/2023 Education Answer Date Recorded What is the highest level of school you have completed or the highest degree you have received? Some college, no degree 09/28/2018 Comments No Sex and Gender Information Value Date Recorded Sex Assigned at Female 09/22/2017 1:45 PM CDT Legal Sex Female 7:19 AM MELTING FURNACE SKIMMER Gender Identity Female 09/22/2017 1:45 PM CDT Sexual Orientation Straight 09/22/2017 1: 45 PM CDT documented as of this encounter Patient Instructions * Patient Instructions* Armando Nance R.N. - 12/15/2023 3:00 PM CDT URGENT - ANTICOAGULATION ORDERS For today's INR result, future warfarin dosing and next INR date please see the attached anticoagulation visit summary. Bridging with Enoxaparin needed: No. Warfarin is a daily dose taken in the evening. This dose is reflected in each date on the attached warfarin calendar Authorized by Armando Nance R.N. per RN protocol Authorized by Mich Luevano D.O. Your Next INR Check: Wednesday12/22/23. If you have sent the faxed assessment form and have not received Warfarin dosing instructions by 2 pm or have questions about these instructions, please contact the Anticoagulation Program for assistance at [phone], Wednesday-Wednesday from 7:30 am to 4:30 pm. . When To Contact Your Health Care Provider If you are experiencing any of the following symptoms, Call 911 or go to the emergency room: chest pain, shortness of breath, vomiting or coughing up blood, large amounts of rectal bleeding, symptomsof a stroke- sudden weakness or inability to move a body part (the face, arm or leg), difficulty speaking or trouble understanding others, sudden blurred, decreased vision, or double vision, dizziness, loss of balance /coordination or a sudden, severe headache. If you fall and or hit your head or suffer a blow to the head, seek emergency treatment. Contact your health care provider about your Warfarin dose: Before any surgical procedures (including tooth extractions) and certain non- surgical procedures (for example, colonoscopies). When you are sick with a fever or develop persistent diarrhea or vomiting. If you doubt that you took your Warfarin as directed. If you start an antibiotic or any prescription drug or if you start any herbal or other etvy-viw-ceoxdmd product (check with your doctor, a nurse, or pharmacist). If you change your diet significantly. If you decide to stop or start using tobacco or alcohol. If you notice unusual bruising or bleeding. If you notice dark, tarry, or bright red stools or blood in your urine. If you have a painful and swollen calf. 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 Author Blood Pressure < 140/90 Blood Pressure 138/77(01/05 3:23 PM CDT) No Honey King R.N. Do one productive activity per day General On track(2018 1:31 PM CDT) Yes Teodora Horvath ROsvaldoN. 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 Note: Pt will look into attending Senior vitality group at [facility] starting in November 20 went to funerals, talked with another lady she did not know there, doing [employer], swim aerobics, visited her son 11/23/18 went to [employer], going to [place] to visit relatives, going to [employer] 12/07/18 went [place] to visit mom and went to concert in [place]. Made a new friend. Hemoglobin A1c < 7.0 Result Component 9.9(05/06/19 24 1:03 PM MELTING FURNACE SKIMMER) No Honey King ROsvaldoN. PHQ-9 Total Score (max 27) < 5 Symptom Management 16( 4 2:19 PM CDT) No Teodora Horvath ROsvaldoN. documented as of this encounter Procedures Procedure Name Priority Date/Time Associated Diagnosis Comments PROTHROMBIN TIME (PT), P Routine 12/15/2023 documented in this encounter Results * Prothrombin Time (PT) (12/15/2023) EXT INR 1.70 OTHER (SPE CIFY IN GRINDER OPERATOR AUTOMATIC) Blood (Blood, Venous) Narrative Resulting Agency Comment POC by [facility] us Historical Provider LAB BLOOD ADD-ON Final Resul t OTHER (SPECIFY IN GRINDER OPERATOR AUTOMATIC) N/A documented in this encounter Visit Diagnoses Diagnosis Cardiomyopathy Dilated (HCC)- Primary Chronic Systolic (Congestive) Heart Failure (HCC) Thrombus Intracardiac Process Control Engineer (Current) Anticoagulant Treatment Monitoring For Therapeutic Drug Therapy documented in this encounter Additional Health Concerns Assessment Noted Time PHQ-9 Depression Total Score: 16 10/04/ 024 2:19 PM CDT documented as of this encounter Care Teams Inspector Heating And Refrigeration Relationship Specialty Start Date End Date Mich Luevano D.O. [address] [place] [address] PCP - General 09/12/22 documented as of this encounter
--- OUTSIDE RECORDS SUMMARY | 2024-01-11 04:37 | XMS_ITS | Encounter Summary ---
Author Organization [facility] Address [address] [place] [address] Care Team Providers Care Loan Collector Name Role Phone Mich Luevano D.O. Primary Care Pro vider Reason for Visit * Reason Onset Date Comments PandaDoc Form 12/06/2023 Order [id number] Encounter Details Date Type Department Care Team (Latest Contact Info) Description 12/06/2023 Clinical Communication Department of Family Medicine, [facility], in [place], [place] [address] [place] [address] Mich Luevano D.O. [address] [place] [address] PandaDoc Form (Order [id number]) Social History Tobacco Use Types Packs/Day Years Used Date Smoking Tobacco: Never Passive Smoke Exposure: Never Smokeless Tobacco: Never Alcohol Use Standard Drinks/Week Comments Yes 1 (1 standard drink = 0.6 oz pur e alcohol) [facility] Utilities Answer Date Recorded In the past 12 months has th e electric, gas, oil, or water company [...] often do you attend chur ch or jain services? More than 4 times per year 06/15/2022 Do you belong to any clubs o r organizations such as sabianist groups, unions, fraternal or athletic groups, or [...] Answer Date Recorded PHQ-2 Score 6 10/05/2023 [facility] of Occupat ional Health - [...] your living situation today? I have a [facility] place to live 10/17/2023 Education Answer Date Recorded What is the highest level of school you have completed or the highest degree you have received? Some college, no degree 09/28/2018 Comments No Sex and Gender Information Value Date Recorded Sex Assigned at Female 09/22/2017 1:45 PM CDT Legal Sex Female 7:19 AM RESTAURANT CREW PERSON Gender Identity Female 09/22/2017 1:45 PM CDT Sexual Orientation Straight 09/22/2017 1: 45 PM CDT documented as of this encounter Miscellaneous Notes * Telephone Encounter - Lily Tucker - 12/06/2023 2:44 PM CDT Form faxed, copy to chart documented in this encounter Plan of Treatment Upcoming Encounters Date Type Department Care Team (Late st Contact Info) Description 01/19/2024 3:30 PM RESTAURANT CREW PERSON Nurse Only Department of Family Medicine, [facility], in [place], [place] [address] [place] [phone] documented as of this encounter Goals Goal Patient Goal Type Associated Problems Recent Progress Patient-Stated? Author Blood Pressure < 140/90 Blood Pressure 138/77(01/05 3:23 PM CDT) No Honey King RLiliya. Do one productive activity per day General On track(2018 1:31 PM CDT) Yes Teodora Horvath, R.N. 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 Note: Pt will look into attending Senior vitality group at [facility] starting in November 20 went to funerals, talked with another lady she did not know there, doing [employer], swim aerobics, visited her son 11/23/18 went to [employer], going [place] to visit [place], going to [employer] 12/07/18 went [place] to visit mom and went to concert in [place]. Made a new friend. Hemoglobin A1c < 7.0 Result Component 9.9(05/06/19 24 1:03 PM RESTAURANT CREW PERSON) No Honey King ROsvaldoN. PHQ-9 Total Score (max 27) < 5 Symptom Management 16( 2:19 PM CDT) No Teodora Horvath, R.N. documented as of this encounter Visit Diagnoses Not on filedocumented in this encounter Additional Health Concerns Assessment Noted Time PHQ-9 Depression Total Score: 16 10/04/ 024 2:19 PM CDT documented as of this encounter Care Teams Loan Collector Relationship Specialty Start Date End Date Mich Luevano D.O. [address] [place] [address] PCP - General 09/12/22 documented as of this encounter
--- OUTSIDE RECORDS SUMMARY | 2024-01-11 04:37 | XMS_ITS | Encounter Summary ---
Author Organization [facility] Address [address] [place] [address] Care Team Providers Care Product Developer Name Role Phone Mich Luevano D.O. Primary Care Pro vider Reason for Visit * Reason Onset Date Comments PandaDoc Form 12/09/2023 OT order Encounter Details Date Type Department Care Team (Latest Contact Info) Description 12/09/2023 Clinical Communication Department of Family Medicine, [facility], in [place], [place] [address] [place] [address] Mich Luevano D.O. [address] [place] [address] PandaDoc Form (OT order) Social History Tobacco Use Types Packs/Day Years Used Date Smoking Tobacco: Never Passive Smoke Exposure: Never Smokeless Tobacco: Never Alcohol Use Standard Drinks/Week Comments Yes 1 (1 standard drink = 0.6 oz pur e alcohol) [facility] Utilities Answer Date Recorded In the [...] often do you attend chur ch or sabianism services? More than 4 times per year 06/15/2022 Do you belong to any clubs o r organizations such as hinduism groups, unions, fraternal or athletic groups, or [...] Answer Date Recorded PHQ-2 Score 6 10/05/2023 [facility] of Occupat ional Health - Occupational Stress [...] your living situation today? I have a [facility] place to live 10/17/2023 Education Answer Date Recorded What is the highest level of school you have completed or the highest degree you have received? Some college, no degree 09/28/2018 Comments No Sex and Gender Information Value Date Recorded Sex Assigned at Female 09/22/2017 1:45 PM CDT Legal Sex Female 7:19 AM CONCRETER Gender Identity Female 09/22/2017 1:45 PM CDT Sexual Orientation Straight 09/22/2017 1: 45 PM CDT documented as of this encounter Miscellaneous Notes * Telephone Encounter - Toro Silviabeka Mcdermott 12/10/2023 10:57 AM CDT Form faxed and scanned to chart. documented in this encounter Plan of Treatment Upcoming Encounters Date Type Department Care Team (Late st Contact Info) Description 01/19/2024 3:30 PM CONCRETER Nurse Only Department of Family Medicine, [facility], in [place], [place] [address], [place] [address] documented as of this encounter Goals Goal Patient Goal Type Associated Problems Recent Progress Patient-Stated? Author Blood Pressure < 140/90 Blood Pressure 138/77(01/05 3:23 PM CDT) No Honey King R.N. Do one productive activity per day General On track(2018 1:31 PM CDT) Yes Teodora Horvath R.N. 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 Note: Pt will look into attending Senior vitality group at [facility] starting in November 20 went to funerals, talked with another lady she did not know there, doing [employer], swim aerobics, visited her son 11/23/18 went to [employer], going [place] to visit [place], going to [employer] 12/07/18 went to [place] to visit mom and went to concert in [place]. Made a new friend. Hemoglobin A1c < 7.0 Result Component 9.9(05/06/19 24 1:03 PM CONCRETER) No Honey King ROsvaldoN. PHQ-9 Total Score (max 27) < 5 Symptom Management 16( 4 2:19 PM CDT) No Teodora Horvath, R.N. documented as of this encounter Visit Diagnoses Not on filedocumented in this encounter Additional Health Concerns Assessment Noted Time PHQ-9 Depression Total Score: 16 10/04/ 024 2:19 PM CDT documented as of this encounter Care Teams Product Developer Relationship Specialty Start Date End Date Mich Luevano D.O. [address] [place] [address] PCP - General 09/12/22 documented as of this encounter
--- OUTSIDE RECORDS SUMMARY | 2024-01-11 04:37 | XMS_ITS | Encounter Summary ---
Author Organization [facility] Address [address] [place] [address] Care Team Providers Care Coffee Shop Attendant Name Role Phone Mich Luevano D.O. Primary Care Pro vider Reason for Visit * Reason Onset Date Comments PandaDoc Form 12/20/2023 Order [id number] Encounter Details Date Type Department Care Team (Latest Contact Info) Description 12/20/2023 Clinical Communication Department of Family Medicine, [facility], in [place], [place] [address] [place] [address] Mich Luevano D.O. [address] [place] [address] PandaDoc Form (Order [id number]) Social History Tobacco Use Types Packs/Day Years Used Date Smoking Tobacco: Never Passive Smoke Exposure: Never Smokeless Tobacco: Never Alcohol Use Standard Drinks/Week Comments Yes 1 (1 standard drink = 0.6 oz pur e alcohol) [facility] Utilities Answer Date Recorded In the [...] often do you attend chur ch or mormon services? More than 4 times per year 06/15/2022 Do you belong to any clubs o r organizations such as zoroastrian groups, unions, fraternal or athletic groups, or [...] Answer Date Recorded PHQ-2 Score 6 10/05/2023 [facility] [place] [facility] - Occupational Stress [...] your living situation today? I have a [facility] place to live 10/17/2023 Education Answer Date Recorded What is the highest level of school you have completed or the highest degree you have received? Some college, no degree 09/28/2018 Comments No Sex and Gender Information Value Date Recorded Sex Assigned at Female 09/22/2017 1:45 PM CDT Legal Sex Female 7:19 AM PROOFSHEET CORRECTOR Gender Identity Female 09/22/2017 1:45 PM CDT Sexual Orientation Straight 09/22/2017 1: 45 PM CDT documented as of this encounter Miscellaneous Notes * Telephone Encounter - Silvia Engel 12/20/2023 12:34 PM CDT Form faxed and scanned to chart. documented in this encounter Plan of Treatment Upcoming Encounters Date Type Department Care Team (Late st Contact Info) Description 01/19/2024 3:30 PM PROOFSHEET CORRECTOR Nurse Only Department of Family Medicine, [facility], in [place], [place] [address] [place] [phone] documented as of this encounter Goals Goal Patient Goal Type Associated Problems Recent Progress Patient-Stated? Author Blood Pressure < 140/90 Blood Pressure 138/77(01/05 3:23 PM CDT) No Honey King RLiliya. Do one productive activity per day General On track(2018 1:31 PM CDT) Yes Teodora Horvath, R.N. 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 Note: Pt will look into attending Senior vitality group at [facility] starting in November 20 went to funerals, talked with another lady she did not know there, doing [employer], swim aerobics, visited her son 11/23/18 went to [employer], going to [place] to visit relatives, going to [facility] 12/07/18 went [place] to visit mom and went to concert in [place]. Made a new friend. Hemoglobin A1c < 7.0 Result Component 9.9(05/06/19 24 1:03 PM PROOFSHEET CORRECTOR) No Honey King ROsvaldoN. PHQ-9 Total Score (max 27) < 5 Symptom Management 16( 2:19 PM CDT) No Teodora Horvath, R.N. documented as of this encounter Visit Diagnoses Not on filedocumented in this encounter Additional Health Concerns Assessment Noted Time PHQ-9 Depression Total Score: 16 10/04/ 024 2:19 PM CDT documented as of this encounter Care Teams Coffee Shop Attendant Relationship Specialty Start Date End Date Mich Luevano D.O. [address] [place] [phone] PCP - General 09/12/22 documented as of this encounter
--- OUTSIDE RECORDS SUMMARY | 2024-01-11 04:37 | XMS_ITS | Encounter Summary ---
Author Organization [facility] Address [address] [place] [address] Care Team Providers Care Vice President Network Name Role Phone Mich Luevano D.O. Primary Care Pro vider Reason for Referral * Outpatient (Routine) - Closed Specialty Diagnoses / Procedures Referred By Contac t Referred To Contact Anticoagulation Diagnoses Chronic Systolic (Congestive) Heart Failure (HCC) Thrombus Intracardiac Alf (Current) Anticoagulant Treatment Mich Luevano D.O. [address] [place] [address] Phone: tel: fax: [facility] Referral ID Status Reason Start Date Expiration Date Visits Re quested Visits Authorized [id number] Closed 12/01/2023 06/01/2025 1 1 Reason for Visit * Outpatient (Routine) - Closed Specialty Diagnoses / Procedures Referred By Contac t Referred To Contact Anticoagulation Mich Luevano D.O. [address] [place] [address] Phone: tel: fax: [facility] Referral ID Status Reason Start Date Expiration Date Visits Re quested Visits Authorized [id number] Closed 11/24/2023 05/25/2025 1 1 Encounter Details Date Type Department Care Team (Latest Contact Info) Description 12/01/2023 1:30 PM CDT Anticoagulation Visit Department of Anticoagulation in [place], [place] [address] [place] [address] Mich Hickman D.O. [address] [place] [address] Chronic Systolic (Congestive) Heart Failure (HCC) (Primary Dx); Cardiomyopathy Dilated (HCC); Thrombus Intracardiac; Alf (Current) Anticoagulant Treatment; Monitoring For Therapeutic Drug Therapy Social History Tobacco Use Types Packs/Day Years Used Date Smoking Tobacco: Never Passive Smoke Exposure: Never Smokeless Tobacco: Never Alcohol Use Standard Drinks/Week Comments Yes 1 (1 standard drink = 0.6 oz pur e alcohol) [facility] Utilities Answer Date Recorded In the past 12 months has [employer], gas, oil, or water [employer] threatened to shut off services in your [...] week 06/15/2022 How often do you attend [facility] or anabaptism services? More than 4 times per year 06/15/2022 Do you belong to any clubs o r organizations such as sabianism groups, unions, fraternal or athletic groups, or [...] Answer Date Recorded PHQ-2 Score 6 10/05/2023 [facility] Occupat ional Health - [...] your living situation today? I have a [facility] place to live 10/17/2023 Education Answer Date Recorded What is the highest level of school you have completed or the highest degree you have received? Some college, no degree 09/28/2018 Comments No Sex and Gender Information Value Date Recorded Sex Assigned at Female 09/22/2017 1:45 PM CDT Legal Sex Female 7:19 AM JOB PLACEMENT OFFICER Gender Identity Female 09/22/2017 1:45 PM CDT Sexual Orientation Straight 09/22/2017 1: 45 PM CDT documented as of this encounter Patient Instructions * Patient Instructions* Fartun Cortez, ROsvaldoN. - 12/01/2023 1:30 PM CDT Your next INR will be WednesdayDecember 07. You will need to call the Anticoagulation Program for warfarin dosing at the scheduled time for your nurse visit, as indicated on your Patient Appointment Guide (PAG). To reschedule your appointment or for questions about your warfarin, please call Primary Care Anticoagulation Program at [phone] from 7:30 am to 4:30 pm. Wednesday-Wednesday . When To Contact Your Health Care [...] if you start any herbal or other [id number]-grh-rowyktm product (check with your doctor, a nurse, or pharmacist). If you change your diet significantly. If you decide to stop or start using tobacco or alcohol. If you notice unusual bruising or bleeding. If you notice dark, tarry, or bright red stools or blood in your urine. If you have a painful and swollen calf. documented in this encounter Progress Notes * Fartun Cortez R.N. - 12/01/2023 1:30 PM CDT Warfarin Maintenance Nursing Protocol Goal Range 2.0-3.0 (version approved 04/2021) Visit Type: Telephone Primary reason for visit: Routine f/u OR f/u per previous visit recommendations Information provided by:home care agency: [facility] INR result: 2.7 Goal range: 2.0-3.0 Inclusion Criteria: All inclusion criteria met. Proceeded to exclusion criteria. Exclusion Criteria: Section 1: No Section 1 exclusion criteria, proceeded to Section 2. Section 2: No Section 2 exclusion criteria, proceeded to screening criteria. Screening Criteria: All screening criteria negative. Testing interval extension evaluation: INR in range today? Yes, but last INR was out of range. Patient is not eligible for testing interval extension. Proceeded to maintenance warfarin dosing and follow-up. Additional Info: None Previous INR was supratherapeutic. Today???s INR is Therapeutic. Dosing and follow up recommendation: Protocol dosing range for INR 2.0-3.0: No change in weekly dose. Currently bridging? no. Next INR in 7 days. per positive screening criteria. Additional dosing or follow-up information: None. Pt is on injectable anticoagulant: No. Plan used: Protocol. See Anticoagulation Track Calendar for dosing and plan details. Anticoagulation Visit Summary: home care agency repeats back dosing instructions, date of next INR,and has no further questions at this time. Total time spent with patient: N/A documented in this encounter Plan of Treatment Upcoming Encounters Date Type Department Care Team (Late st Contact Info) Description 01/19/2024 3:30 PM JOB PLACEMENT OFFICER Nurse Only Department of Family Medicine, [facility], in [place], [place] [address] [phone] Scheduled Referrals Name Type Priority Associated Diagnoses Orde r Schedule Anticoagulation nurse visit (clinic) Outpatient Referral Routine Chronic Systolic (Congestive) Heart Failure (HCC) Thrombus Intracardiac Alf (Current) Anticoagulant Treatment Expected: 12/08/2023, Expires: 03/01/2025 documented as of this encounter Goals Goal Patient Goal Type Associated Problems Recent Progress Patient-Stated? Author Blood Pressure < 140/90 Blood Pressure 138/77(01/05 3:23 PM CDT) No Honey King R.N. 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 11/09 is doing more but not everyday 11/23 doing that most of the time, ie laundry, clean kitchen, clean bedroom 12/07/18 been gone a lot so hard to do this Engage in social activities Lifestyle On track(2018 1:32 PM CDT) No Teodora Horvath ROsvaldoNOsvaldo Note: Pt [facility] 20 went to funerals, talked with another lady she did not know there, doing [employer], swim aerobics, visited her son 11/23/18 went to [employer], going [place], going to [employer] 12/07/18 [place] mom and went to concert in [place]. Made a new friend. Hemoglobin A1c < 7.0 Result Component 9.9(05/06/19 24 1:03 PM JOB PLACEMENT OFFICER) No Honey King ROsvaldoN. PHQ-9 Total Score (max 27) < 5 Symptom Management 16( 4 2:19 PM CDT) No Teodora Horvath ROsvaldoN. documented as of this encounter Procedures Procedure Name Priority Date/Time Associated Diagnosis Comments PROTHROMBIN TIME (PT), P Routine 12/01/2023 documented in this encounter Results * Prothrombin Time (PT) (12/01/2023) EXT INR 2.70 OTHER (SPE CIFY IN COCKTAIL WAITRESS) Blood (Blood, Venous) 12/01/2023 us Historical Provider LAB BLOOD ADD-ON Final Resul t OTHER (SPECIFY IN COCKTAIL WAITRESS) N/A documented in this encounter Visit Diagnoses Diagnosis Chronic Systolic (Congestive) Heart Failure (HCC)- Primary Cardiomyopathy Dilated (HCC) Thrombus Intracardiac Alf (Current) Anticoagulant Treatment Monitoring For Therapeutic Drug Therapy documented in this encounter Additional Health Concerns Assessment Noted Time PHQ-9 Depression Total Score: 16 024 2:19 PM CDT documented as of this encounter Care Teams Vice President Network Relationship Specialty Start Date End Date Mich Luevano D.O. [address] [place] [address] PCP - General 09/12/22 documented as of this encounter
--- OUTSIDE RECORDS SUMMARY | 2024-01-11 04:37 | XMS_ITS | Encounter Summary ---
Author Organization [facility] Address [address] [place] [address] Care Team Providers Care Php Developer Name Role Phone Mich Luevano D.O. Primary Care Pro vider Reason for Referral * Outpatient (Routine) - Authorized Specialty Diagnoses / Procedures Referred By Contac t Referred To Contact Mich Luevano D.O. [address] [place] [address] Phone: tel: fax: [facility] Referral ID Status Reason Start Date Expiration Date V isits Requested Visits Authorized [id number] Authorized 12/21/2023 06/21/2025 1 1 Scheduling Instructions Nurse AWV Do not schedule prior to due date to ensure insurance coverage Visit: Medicare Annual Wellness Never done. Encounter Details Date Type Department Care Team (Latest Contact Info) Description 12/21/2023 Orders Only RST PCP [facility] Mich Luevano D.O. [address] [place] [address] Social History Tobacco Use Types Packs/Day Years Used Date Smoking Tobacco: Never Passive Smoke Exposure: Never Smokeless Tobacco: Never Alcohol Use Standard Drinks/Week Comments Yes 1 (1 standard drink = 0.6 oz pur e alcohol) [facility] Utilities Answer Date Recorded In the [...] often do you attend chur ch or mu-ism services? More than 4 times per year 06/15/2022 Do you belong to any clubs o r organizations such as synagogue groups, unions, fraternal or athletic groups, or [...] Answer Date Recorded PHQ-2 Score 6 10/05/2023 [facility] of Occupat ional [facility] - Occupational Stress Questionnaire Answer Date [...] your living situation today? I have a [facility] to live 10/17/2023 Education Answer Date Recorded What is the highest level of school you have completed or the highest degree you have received? Some college, no degree 09/28/2018 Comments No Sex and Gender Information Value Date Recorded Sex Assigned at Female 09/22/2017 1:45 PM CDT Legal Sex Female 7:19 AM PARATRANSIT OPERATOR Gender Identity Female 09/22/2017 1:45 PM CDT Sexual Orientation Straight 09/22/2017 1: 45 PM CDT documented as of this encounter Plan of Treatment Upcoming Encounters Date Type Department Care Team (Late st Contact Info) Description 01/19/2024 3:30 PM PARATRANSIT OPERATOR Nurse Only Department of Family Medicine, [facility], in [place], [place] [address] [place] [address] Scheduled Referrals Name Type Priority Associated Diagnoses Orde r Schedule Primary Care nurse visit (clinic) - [facility]; Medicare Annual Wellness Outpatient Referral Routine Expected: 01/18/2024, Expires: 06/18/2024 documented as of this encounter Goals Goal Patient Goal Type Associated Problems Recent Progress Patient-Stated? Author Blood Pressure < 140/90 Blood Pressure 138/77(01/05 3:23 PM CDT) No Honey King ROsvaldoNOsvaldo Do one productive activity per day General On track(2018 1:31 PM CDT) Yes Teodora Horvath ROsvaldoN. 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 Note: Pt will look into attending Senior vitality group at [facility] starting in November 20 went to funerals, talked with another lady she did not know there, doing [place], swim aerobics, visited her son 11/23/18 went to [place], going [place] to visit [place], going to [facility] 12/07/18 went [place] to visit mom and went to concert in [place]. Made a new friend. Hemoglobin A1c < 7.0 Result Component 9.9(05/06/19 24 1:03 PM PARATRANSIT OPERATOR) No Honey King ROsvaldoN. PHQ-9 Total Score (max 27) < 5 Symptom Management 16( 4 2:19 PM CDT) No Teodora Horvath ROsvaldoNOsvaldo documented as of this encounter Visit Diagnoses Not on filedocumented in this encounter Additional Health Concerns Assessment Noted Time PHQ-9 Depression Total Score: 16 024 2:19 PM CDT documented as of this encounter Care Teams Php Developer Relationship Specialty Start Date End Date Mich Luevano D.O. [address] [place] [phone] PCP - General 09/12/22 documented as of this encounter
--- OUTSIDE RECORDS SUMMARY | 2024-01-11 04:37 | XMS_ITS | Encounter Summary ---
Author Organization [facility] Address [address] [place] [address] Care Team Providers Care Graphite Mill Operator Name Role Phone Mich Luevano D.O. Primary Care Pro vider Reason for Referral * Outpatient (Routine) - Closed Specialty Diagnoses / Procedures Referred By Contac t Referred To Contact Anticoagulation Mich Luevano D.O. [address] [place] [address] Phone: tel: fax: [facility] Referral ID Status Reason Start Date Expiration Date Visits Re quested Visits Authorized [id number] Closed 11/24/2023 05/25/2025 1 1 Reason for Visit * Outpatient (Routine) - Closed Specialty Diagnoses / Procedures Referred By Contac t Referred To Contact Anticoagulation Diagnoses Mcc (Current) Anticoagulant Treatment Thrombus Intracardiac Congestive Heart Failure Ejection Fraction Less Than 35 Percent And [place] [facility] [employer] Class 2-3 (HCC) Monitoring For Therapeutic Drug Therapy Li Riggs D.O. Phone: tel: fax: [facility] Referral ID Status Reason Start Date Expiration Date Visits Re quested Visits Authorized [id number] Closed 05/06/2021 05/06/2022 300 300 Encounter Details Date Type Department Care Team (Latest Contact Info) Description 11/24/2023 1:40 PM CDT Anticoagulation Visit Department of Anticoagulation in [place], [place] [address] [place] [address] Li Riggs D.O. [address] [place] [address] Cardiomyopathy Dilated (HCC) (Primary Dx); Mcc (Current) Anticoagulant Treatment; Thrombus Intracardiac; Congestive Heart Failure Ejection Fraction Less Than 35 Percent And [place] [facility] [employer] Class 2-3 (HCC); Monitoring For Therapeutic Drug Therapy; Chronic Systolic (Congestive) Heart Failure (HCC) Social History Tobacco Use Types Packs/Day Years Used Date Smoking Tobacco: Never Passive Smoke Exposure: Never Smokeless Tobacco: Never Alcohol Use Standard Drinks/Week Comments Yes 1 (1 standard drink = 0.6 oz pur e alcohol) [facility] [employer] Answer Date Recorded In the past 12 months has [employer] gas, oil, or water [employer] threatened to shut off services in your [...] week 06/15/2022 How often do you attend [facility] or rastafari services? More than 4 times per year 06/15/2022 Do you belong to any clubs o r organizations such as denominational groups, unions, fraternal or athletic groups, or [...] Answer Date Recorded PHQ-2 Score 6 10/05/2023 [facility] of Occupat ional Health - Occupational Stress [...] your living situation today? I have a [facility] place to live 10/17/2023 Education Answer Date Recorded What is the highest level of school you have completed or the highest degree you have received? 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 - 11/24/2023 1:40 PM CDT Your next INR will be 12/01/23. You will need to call the Anticoagulation Program for warfarin dosing at the scheduled time for your nurse visit, as indicated on your Patient Appointment Guide (PAG). To reschedule your appointment or for questions about your warfarin, please call Primary Care Anticoagulation Program at [phone] from 7:30 am to 4:30 pm. Wednesday-Wednesday [...] if you start any herbal or other labh-mao-jjovsrr product (check with your doctor, a nurse, or pharmacist). If you change your diet significantly. If you decide to stop or start using tobacco or alcohol. If you notice unusual bruising or bleeding. If you notice dark, tarry, or bright red stools or blood in your urine. If you have a painful and swollen calf. documented in this encounter Progress Notes * Renetta Bowers R.N. - 11/24/2023 1:40 PM CDT Warfarin Maintenance Nursing Protocol Goal Range 2.0-3.0 (version approved 04/2021) Visit Type: Telephone and Home/Self Test INR Primary reason for visit: Routine f/u OR f/u per previous visit recommendations and Discharging from Extended Care Facility: [facility] on date-10/19 to 11/11/23 to home. Following [employer] Displaced Closed Initial Left (HCC), currently living with her daughter. Information provided by:home care agency: Prisc[facility] and warfarin information per daughter Yennifer INR result: 3.6 Goal range: 2.0-3.0 Inclusion Criteria: All inclusion criteria met. Proceeded to exclusion criteria. Exclusion Criteria: Section 1: No Section 1 exclusion criteria, proceeded to Section 2. Section 2: No Section 2 exclusion criteria, proceeded to screening criteria. Screening Criteria: Patient has had a change in adherence (missed dose, extra dose, inaccurate dose) to prescribed warfarin dosing in last 3 days including: yes. Inaccurate warfarin doses per Warfarin Anticoagulation Tracking calendar. Proceeded to maintenance warfarin dosing and follow-up, but have patient return forfollow-up INR in 7-10 days. Additional Info: None Previous INR was therapeutic. Today???s INR is Supratherapeutic, Causes: Unknown. Dosing and follow up recommendation: Protocol dosing range for INR 3.6-4: Decrease average daily dose by 50% for 1 dose, then resume current dose per protocol. Next INR in 5-7 days. Additional dosing or follow-up information: Protocol completed. Per nursing judgment, provider consulted. Dosing per tracker. Next INR in 1 weeks per consult with Anticoagulation [facility]. Pt is on injectable anticoagulant: No. Plan used: Consult. See Anticoagulation Track Calendar for dosing and plan details. Anticoagulation Visit Summary: family repeats back dosing instructions, date of next INR, and has no further questions at this time. and Patient provided with warfarin dosing and next INR appointmentvia Patient Online Services. Patient encouraged to call or send message back if any questions. Total time spent with patient: 15 minutes documented in this encounter Plan of Treatment Upcoming Encounters Date Type Department Care Team (Late st Contact Info) Description 01/19/2024 3:30 PM MICROFILM OPERATOR Nurse Only Department of Family Medicine, [facility], in [place], [place] [address] [address] Scheduled Referrals Name Type Priority Associated Diagnoses Order Schedule Anticoagulation nurse visit (clinic) Outpatient Referral Routine Expected: 12/01/2023, Expires: 02/22/2025 documented as of this encounter Goals Goal Patient Goal Type Associated Problems Recent Progress Patient-Stated? Author Blood Pressure < 140/90 Blood Pressure 138/77(01/05 3:23 PM CDT) No Honey Kign R.N. Do one productive activity per day General On track(2018 1:31 PM CDT) Yes Myhre, Teodora R, R.N. 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 Note: Pt will look into attending Senior vitality group at [facility] starting in November 20 went to funerals, talked with another lady she did not know there, doing [employer], swim aerobics, visited her son 11/23/18 went to [employer], going [place] to visit relatives, going to [employer] 12/07/18 went [place] to visit mom and went to concert in [place]. Made a new friend. Hemoglobin A1c < 7.0 Result Component 9.9(05/06/19 24 1:03 PM MICROFILM OPERATOR) No Honey King ROsvaldoN. PHQ-9 Total Score (max 27) < 5 Symptom Management 16( 4 2:19 PM CDT) No Teodora Horvath ROsvaldoN. documented as of this encounter Procedures Procedure Name Priority Date/Time Associated Diagnosis Comments PROTHROMBIN TIME (PT), P Routine 11/24/2023 documented in this encounter Results * Prothrombin Time (PT) (11/24/2023) EXT INR 3.60 PATIENT PO INT OF CARE DEVICE Blood (Blood, Venous) 11/24/2023 us Historical Provider LAB BLOOD ADD-ON Final Resul t PATIENT POINT OF CARE DEVICE documented in this encounter Visit Diagnoses Diagnosis Cardiomyopathy Dilated (HCC)- Primary Mcc (Current) Anticoagulant Treatment Thrombus Intracardiac Congestive Heart Failure Ejection Fraction Less Than 35 Percent And [place] [facility] [employer] Class 2-3 (HCC) Monitoring For Therapeutic Drug Therapy Chronic Systolic (Congestive) Heart Failure (HCC) documented in this encounter Additional Health Concerns Assessment Noted Time PHQ-9 Depression Total Score: 16 10/04/ 024 2:19 PM CDT documented as of this encounter Care Teams Graphite Mill Operator Relationship Specialty Start Date End Date Mich Luevano D.O. [address] [place] [address] PCP - General 09/12/22 documented as of this encounter
--- OUTSIDE RECORDS SUMMARY | 2024-01-11 04:37 | XMS_ITS | Encounter Summary ---
Author Organization [facility] Address [address] [place] [address] Care Team Providers Care Piercing Artist Name Role Phone Mich Luevano D.O. Primary Care Pro vider Reason for Visit * Reason Onset Date Comments Follow-up 11/19/2023 Appt today Encounter Details Date Type Department Care Team (Latest Contact Info) Description 11/19/2023 Clinical Communication Department of Family Medicine, [facility], in [place], [place] [address] [place] [address] Luis Alfredo Maravilla ROsvaldoN. [address] [place] [phone] Follow-up (Appt today) Social History Tobacco Use Types Packs/Day Years Used Date Smoking Tobacco: Never Passive Smoke Exposure: Never Smokeless Tobacco: Never Alcohol Use Standard Drinks/Week Comments Yes 1 (1 standard drink = 0.6 oz pur e alcohol) [facility] Answer Date Recorded In the past [...] How often do you attend chur or nondenominational services? More than 4 times per year 06/15/2022 Do you belong to any clubs o r organizations such as pentecostalism groups, unions, fraternal or athletic groups, or [...] Answer Date Recorded PHQ-2 Score 6 10/05/2023 [facility] [place] of Occupat ional Health - Occupational Stress [...] your living situation today? I have a [facility] place to live 10/17/2023 Education Answer Date Recorded What is the highest level of school you have completed or the highest degree you have received? Some college, no degree 09/28/2018 Comments No Sex and Gender Information Value Date Recorded Sex Assigned at Female 09/22/2017 1:45 PM CDT Legal Sex Female 7:19 AM CHUMMER Gender Identity Female 09/22/2017 1:45 PM CDT Sexual Orientation Straight 09/22/2017 1: 45 PM CDT documented as of this encounter Miscellaneous Notes * Telephone Encounter - Luis Alfredo Maravilla R.N. - 11/19/2023 8:21 AM CDT SUBJECTIVE CHIEF COMPLAINT / REASON FOR CALL Follow-up (Appt today) Information Discussed Spoke with patient's daughter, Yennifer, it was explained that after going over the patient list today and discussing Jeanine's situation, the staff providers real want to stress that this needs to be anin person visit. Yennifer is aware, but is at work today and unable to make it. Patient has not been in a car since coming home from the [facility]. Yennifer was upset as she spoke with the provider earlier this week and states that she was ok with the phone visit. It was explained that while we can still have a touch point via phone with the patient, we will need an in person appointment as soon as possible as we need to do other assessments that are not able to be completed over the phone. Yennifer is understanding of this and will work with her brother to see if he can bring her for an appointment. Shestates that the patient is aware of her meds and care and complete a phone visit with the provider without herself or her brother present. We also discussed the need for an INR check that needs to be completed very soon and there was a note from the anticoag team at [facility] on her visit for today to try to get this completed at the visit today. Yennifer is also aware of this and states that the home health nurse that comes in once a weeks has stated that they can check her INR. The home health nurse was also supposed to get back to her earlier this week with information on setting up the INR checks. She will follow-up with her. Of note, there is an amount of foster care case manager stress sensed while talking to Yennifer. Yennifer was also asked about medications from earlier encounter. She thinks that they are ok with all her medications at this point. She states that she has not really had time to check with her work.She will have the pharmacy contact us if they need anything. PLAN Disposition/Recommendation: notified provider and awaiting recommendations Information/Education: patient/caller able to teach back Caller agreeable to plan of care: yes The following references were used: nursing clinical judgement documented in this encounter Plan of Treatment Upcoming Encounters Date Type Department Care Team (Late st Contact Info) Description 01/19/2024 3:30 PM CHUMMER Nurse Only Department of Family Medicine, [facility], in [place], [place] [address] [place] [address] documented as of this encounter Goals Goal Patient Goal Type Associated Problems Recent Progress Patient-Stated? Author Blood Pressure < 140/90 Blood Pressure 138/77(01/05 3:23 PM CDT) No Honey King R.N. Do one productive activity per day General On track(2018 1:31 PM CDT) Yes Teodora Horvath R.N. 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 Note: Pt will look into attending Senior vitality group at [facility] starting in November 20 went to funerals, talked with another lady she did not know there, doing [employer], swim aerobics, visited her son 11/23/18 went to [employer], going [place] to visit relatives, going to [employer] 12/07/18 went [place] to visit mom and went to concert in [place]. Made a new friend. Hemoglobin A1c < 7.0 Result Component 9.9(05/06/19 24 1:03 PM CHUMMER) No Honey King ROsvaldoN. PHQ-9 Total Score (max 27) < 5 Symptom Management 16( 4 2:19 PM CDT) No Teodora Horvath R.N. documented as of this encounter Visit Diagnoses Not on filedocumented in this encounter Additional Health Concerns Assessment Noted Time PHQ-9 Depression Total Score: 16 024 2:19 PM CDT documented as of this encounter Care Teams Piercing Artist Relationship Specialty Start Date End Date Mich Luevano D.O. [address] [place] [address] PCP - General 09/12/22 documented as of this encounter
--- OUTSIDE RECORDS SUMMARY | 2024-01-11 04:37 | XMS_ITS | Encounter Summary ---
Author Organization [facility] Address [address] [place] [address] Care Team Providers Care Store Administrator Name Role Phone Mich Luevano D.O. Primary Care Pro vider Reason for Referral * Outpatient (Routine) - Closed Specialty Diagnoses / Procedures Referred By Contac t Referred To Contact Anticoagulation Mich Luevano D.O. [address] [place] [address] Phone: tel: fax: [facility] Referral ID Status Reason Start Date Expiration Date Visits Re quested Visits Authorized [id number] Closed 12/08/2023 06/08/2025 1 1 Scheduling Instructions [facility] to call Reason for Visit * Outpatient (Routine) - Closed Specialty Diagnoses / Procedures Referred By Contac t Referred To Contact Anticoagulation Diagnoses Chronic Systolic (Congestive) Heart Failure (HCC) Thrombus Intracardiac Line And Frame Poler (Current) Anticoagulant Treatment Mich Luevano D.O. [address] [place] [address] Phone: tel: fax: [facility] Referral ID Status Reason Start Date Expiration Date Visits Re quested Visits Authorized [id number] Closed 12/01/2023 06/01/2025 1 1 Encounter Details Date Type Department Care Team (Latest Contact Info) Description 12/08/2023 1:15 PM CDT Anticoagulation Visit Department of Anticoagulation in [place], [place] [address] [place] [address] Hailey cardona, Mich Wang D.O. [address] [place] [address] Cardiomyopathy Dilated (HCC) (Primary Dx); Chronic Systolic (Congestive) Heart Failure (HCC); Thrombus Intracardiac; Line And Frame Poler (Current) Anticoagulant Treatment; Monitoring For Therapeutic Drug Therapy Social History Tobacco Use Types Packs/Day Years Used Date Smoking Tobacco: Never Passive Smoke Exposure: Never Smokeless Tobacco: Never Alcohol Use Standard Drinks/Week Comments Yes 1 (1 standard drink = 0.6 oz pur e alcohol) [facility] Utilities Answer Date Recorded In the past 12 months has [employer], gas, oil, or water [employer] threatened to shut off services in your [...] do you attend [facility] or nondenominational services? More than 4 times per year 06/15/2022 Do you belong to any clubs o r organizations such as bahai groups, unions, fraternal or athletic groups, or [...] Answer Date Recorded PHQ-2 Score 6 10/05/2023 [facility] of Occupat ional Health - Occupational Stress [...] living situation today? I have a [facility] place to live 10/17/2023 Education Answer Date Recorded What is the highest level of school you have completed or the highest degree you have received? 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 - 12/08/2023 1:15 PM CDT Your next INR will be 12/15/23. You will need to call the Anticoagulation Program for warfarin dosing at the scheduled time for your nurse visit, as indicated on your Patient Appointment Guide (PAG). To reschedule your appointment or for questions about your warfarin, please call Primary Care Anticoagulation Program at [phone] from 7:30 am to 4:30 pm. Wednesday-Wednesday [...] if you start any herbal or other rwxi-xpv-wgqkhty product (check with your doctor, a nurse, [...] st Contact Info) Description 01/19/2024 3:30 PM ELECTRIC METER REPAIRER Nurse Only Department of Family Medicine, , in [place], [place] [address] [address] Scheduled Referrals Name Type Priority Associated Diagnoses Order Schedule Anticoagulation nurse visit (clinic) Outpatient Referral Routine Expected: 12/15/2023, Expires: 03/08/2025 documented as of this encounter Goals Goal Patient Goal Type Associated Problems Recent Progress Patient-Stated? 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 Note: Pt will look into attending Senior vitality group at [facility] starting in November 20 went to funerals, talked with another lady she did not know there, doing [employer], swim aerobics, visited her son 11/23/18 went to [employer], going [place] to visit [place], going to [employer] 12/07/18 went [place] to visit mom and went to concert in [place]. Made a new friend. Hemoglobin A1c < 7.0 Result Component 9.9(05/06/19 24 1:03 PM ELECTRIC METER REPAIRER) No Honey King R.N. PHQ-9 Total Score (max 27) < 5 Symptom Management 16( 4 2:19 PM CDT) No Teodora Horvath R.N. documented as of this encounter Procedures Procedure Name Priority Date/Time Associated Diagnosis Comments PROTHROMBIN TIME (PT), P Routine 12/08/2023 documented in this encounter Results * Prothrombin Time (PT) (12/08/2023) EXT INR 3.40 PATIENT PO INT OF CARE DEVICE Blood (Blood, Venous) us Historical Provider LAB BLOOD ADD-ON Final Resul t PATIENT POINT OF CARE DEVICE documented in this encounter Visit Diagnoses Diagnosis Cardiomyopathy Dilated (HCC)- Primary Chronic Systolic (Congestive) Heart Failure (HCC) Thrombus Intracardiac Custodial (Current) Anticoagulant Treatment Monitoring For Therapeutic Drug Therapy documented in this encounter Additional Health Concerns Assessment Noted Time PHQ-9 Depression Total Score: 16 024 2:19 PM CDT documented as of this encounter Care Teams Store Administrator Relationship Specialty Start Date End Date Mich Luevano D.O. [address] [place] [address] PCP - General 09/12/22 documented as of this encounter
--- OUTSIDE RECORDS SUMMARY | 2024-01-11 04:37 | XMS_ITS | Encounter Summary ---
[facility] Organization [facility] Address [address] [place] [address] Care Team Providers Care Care Process Manager Name Role Phone Mich Luevano D.O. Primary Care Pro vider Reason for Visit * Reason Onset Date Comments PandaDoc Form 01/05/2024 Physicians Order Encounter Details Date Type Department Care Team (Latest Contact Info) Description 01/05/2024 Clinical Communication Department of Family Medicine, [facility], in [place], [place] [address] [place] [address] Mich Luevano D.O. [address] [place] [address] PandaDoc Form (Physicians Order) Social History Tobacco Use Types Packs/Day Years Used Date Smoking Tobacco: Never Passive Smoke Exposure: Never Smokeless Tobacco: Never Alcohol Use Standard Drinks/Week Comments Yes 1 (1 standard drink = 0.6 oz pur e alcohol) [facility] Utilities Answer Date Recorded In the [...] often do you attend chur ch or oriental orthodox services? More than 4 times per year 06/15/2022 Do you belong to any clubs o r organizations such as religious groups, unions, fraternal or athletic groups, or [...] Answer Date Recorded PHQ-2 Score 6 10/05/2023 [facility] [place] of Occupat ional Health - Occupational Stress [...] your living situation today? I have a [facility] place to live 10/17/2023 Education Answer Date Recorded What is the highest level of school you have completed or the highest degree you have received? Some college, no degree 09/28/2018 Comments No Sex and Gender Information Value Date Recorded Sex Assigned at Female 09/22/2017 1:45 PM CDT Legal Sex Female 7:19 AM CIGARETTE TESTER Gender Identity Female 09/22/2017 1:45 PM CDT Sexual Orientation Straight 09/22/2017 1: 45 PM CDT documented as of this encounter Miscellaneous Notes * Telephone Encounter - Silvia Engel - 01/05/2024 12:31 PM CDT Form faxed and scanned to chart. documented in this encounter Plan of Treatment Upcoming Encounters Date Type Department Care Team (Late st Contact Info) Description 01/19/2024 3:30 PM CIGARETTE TESTER Nurse Only Department of Family Medicine, [facility], in [place], [place] [address], [place] [address] documented as of this encounter Goals Goal Patient Goal Type Associated Problems Recent Progress Patient-Stated? Author Blood Pressure < 140/90 Blood Pressure 138/77(01/05 3:23 PM CDT) No Honey King R.N. Do one productive activity per day General On track(2018 1:31 PM CDT) Yes Teodora Horvath R.N. 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 Note: Pt will look into attending Senior vitality group at [facility] starting in November 20 went to funerals, talked with another lady she did not know there, doing [employer], swim aerobics, visited her son 11/23/18 went to [employer], going [place] to visit [place], going to [employer] 12/07/18 went to [place] to visit mom and went to concert in [place]. Made a new friend. Hemoglobin A1c < 7.0 Result Component 9.9(05/06/19 24 1:03 PM CIGARETTE TESTER) No Honey King ROsvaldoN. PHQ-9 Total Score (max 27) < 5 Symptom Management 16( 4 2:19 PM CDT) No Teodora Horvath, R.N. documented as of this encounter Visit Diagnoses Not on filedocumented in this encounter Additional Health Concerns Assessment Noted Time PHQ-9 Depression Total Score: 16 10/04/ 024 2:19 PM CDT documented as of this encounter Care Teams Care Process Manager Relationship Specialty Start Date End Date Mich Luevano D.O. [address] [place] [address] PCP - General 09/12/22 documented as of this encounter
--- OUTSIDE RECORDS SUMMARY | 2024-01-11 04:37 | XMS_ITS | Encounter Summary ---
Author Organization [facility] Address [address] [place] [address] Care Team Providers Care Aurist Name Role Phone Mich Luevano D.O. Primary Care Pro vider Reason for Referral * Outpatient (Routine) - Closed Specialty Diagnoses / Procedures Referred By Seven reddy Referred To Contact Anticoagulation Mich Luevano D.O. [address] [place] [address] Phone: tel: fax: [facility] Referral ID Status Reason Start Date Expiration Date Visits Re quested Visits Authorized [id number] Closed 12/23/2023 06/23/2025 1 1 Scheduling Instructions 12/29/2023 Reason for Visit * Outpatient (Routine) - Closed Specialty Diagnoses / Procedures Referred By Contac t Referred To Contact Anticoagulation Diagnoses Cardiomyopathy Dilated (HCC) Chronic Systolic (Congestive) Heart Failure (HCC) Thrombus Intracardiac Care Home (Current) Anticoagulant Treatment Monitoring For Therapeutic Drug Therapy Mich Luevano D.O. [address] [place] [address] Phone: tel: fax: [facility] Referral ID Status Reason Start Date Expiration Date Visits Re quested Visits Authorized [id number] Closed 12/15/2023 06/15/2025 1 1 Encounter Details Date Type Department Care Team (Latest Contact Info) Description 12/23/2023 2:00 PM CDT Anticoagulation Visit Department of Anticoagulation in [place], [place] [address] [place] [address] Hailey cardona, Mich Wang D.O. [address] [place] [address] Cardiomyopathy Dilated (HCC) (Primary Dx); Chronic Systolic (Congestive) Heart Failure (HCC); Thrombus Intracardiac; Mirror Framer (Current) Anticoagulant Treatment; Monitoring For Therapeutic Drug Therapy Social History Tobacco Use Types Packs/Day Years Used Date Smoking Tobacco: Never Passive Smoke Exposure: Never Smokeless Tobacco: Never Alcohol Use Standard Drinks/Week Comments Yes 1 (1 standard drink = 0.6 oz pur e alcohol) [facility] Utilities Answer Date Recorded In the past 12 months has e [employer], gas, oil, or water P[employer] are family too threatened to shut off services in your [...] any clubs o r organizations such as roman catholic groups, unions, fraternal or athletic groups, or [...] Answer Date Recorded PHQ-2 Score 6 10/05/2023 [facility] of Occupat ional Health - Occupational [...] your living situation today? I have a [facility] place to live 10/17/2023 Education Answer Date Recorded What is the highest level of school you have completed or the highest degree you have received? Some college, no degree 09/28/2018 Comments No Sex and Gender Information Value Date Recorded Sex Assigned at Female 09/22/2017 1:45 PM CDT Legal Sex Female 7:19 AM SORTER PRICER Gender Identity Female 09/22/2017 1:45 PM CDT Sexual Orientation Straight 09/22/2017 1: 45 PM CDT documented as of this encounter Patient Instructions * Patient Instructions* Najma Lara R.N. - 12/23/2023 2:00 PM CDT URGENT - ANTICOAGULATION ORDERS For today's INR result, future warfarin dosing and next INR date please see the attached anticoagulation visit summary. Bridging with Enoxaparin needed: No. Warfarin is a daily dose taken in the evening. This dose is reflected in each date on the attached warfarin calendar Authorized by Najma Lara R.N. per RN protocol Authorized by Mich Luevano D.O. Your Next INR Check: Will be on 12/29/2023. Faxed assessment form needs to be received by the Anticoagulation Program by11 am on the day of INR draw to ensure same day dosing. If assessment has not been received by thistime you may need to consult your absence management consultant provider for Warfarin dosing. If you have sent the faxed assessment form and have not received Warfarin dosing instructions by 2 pm or have questions about these instructions, please contact the Anticoagulation Program for assistance at [phone], Wednesday-Wednesday from 7:30 am to 4:30 pm. [...] if you start any herbal or other strj-zvd-fopfuep product (check with your doctor, a nurse, [...] st Contact Info) Description 01/19/2024 3:30 PM SORTER PRICER Nurse Only Department of Family Medicine, [facility], in [place], [place] [address] [address] Scheduled Referrals Name Type Priority Associated Diagnoses Order Schedule Anticoagulation nurse visit (clinic) Outpatient Referral Routine Expected: 12/29/2023, Expires: 03/24/2025 documented as of this encounter Goals Goal Patient Goal Type Associated Problems Recent Progress Patient-Stated? Author Blood Pressure < 140/90 Blood Pressure 138/77(01/05 3:23 PM CDT) No Honey King R.N. Do one productive activity per day General On track(2018 1:31 PM CDT) Yes Teodora Horvath R.N. 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 Note: Pt will look into attending Senior vitality group at [facility] starting in November 20 went to funerals, talked with another lady she did not know there, doing [employer], swim aerobics, visited her son 11/23/18 went to [employer], going to [place] to visit relatives, going to [employer] 12/07/18 went to [place] to visit mom and went to concert in [place]. Made a new friend. Hemoglobin A1c < 7.0 Result Component 9.9(05/06/19 24 1:03 PM SORTER PRICER) No Honey King RLiliya. PHQ-9 Total Score (max 27) < 5 Symptom Management 16( 4 2:19 PM CDT) No Teodora Horvath ROsvaldoN. documented as of this encounter Procedures Procedure Name Priority Date/Time Associated Diagnosis Comments PROTHROMBIN TIME (PT), P Routine 12/23/2023 documented in this encounter Results * Prothrombin Time (PT) (12/23/2023) EXT INR 2.20 OTHER (SPE CIFY IN EMPLOYEE RELATIONS ADMINISTRATOR) Blood (Blood, Venous) 12/23/2023 Narrative Resulting Agency Comment [facility] us Historical Provider LAB BLOOD ADD-ON Final Resul t OTHER (SPECIFY IN EMPLOYEE RELATIONS ADMINISTRATOR) N/A documented in this encounter Visit Diagnoses Diagnosis Cardiomyopathy Dilated (HCC)- Primary Chronic Systolic (Congestive) Heart Failure (HCC) Thrombus Intracardiac Care Home (Current) Anticoagulant Treatment Monitoring For Therapeutic Drug Therapy documented in this encounter Additional Health Concerns Assessment Noted Time PHQ-9 Depression Total Score: 16 10/04/ 024 2:19 PM CDT documented as of this encounter Care Teams Aurist Relationship Specialty Start Date End Date Mich Luevano D.O. [facility] [place] [address] [address] PCP - General 09/12/22 documented as of this encounter
--- OUTSIDE RECORDS SUMMARY | 2024-01-11 04:37 | XMS_ITS | Encounter Summary ---
Author Organization [facility] Address [address] [place] [address] Care Team Providers Care Camp Dining Room Attendant Name Role Phone Mich Luevano D.O. Primary Care Pro vider Reason for Visit * Outpatient (Routine) - Closed Specialty Diagnoses / Procedures Referred By Contezio t Referred To Contact Anticoagulation Mich Luevano D.O. [address] [place] [address] Phone: tel: fax: [facility] Referral ID Status Reason Start Date Expiration Date Visits Re quested Visits Authorized [id number] Closed 12/23/2023 06/23/2025 1 1 Encounter Details Date Type Department Care Team (Latest Contact Info) Description 12/31/2023 1:30 PM CDT Anticoagulation Visit Department of Anticoagulation in [place], [place] [address] [place] [address] Mich Hickman D.O. [address] [place] [address] Cardiomyopathy Dilated (HCC) (Primary Dx); Chronic Systolic (Congestive) Heart Failure (HCC); Thrombus Intracardiac; Cross Tie Cutter (Current) Anticoagulant Treatment; Monitoring For Therapeutic Drug Therapy Social History Tobacco Use Types Packs/Day Years Used Date Smoking Tobacco: Never Passive Smoke Exposure: Never Smokeless Tobacco: Never Alcohol Use Standard Drinks/Week Comments Yes 1 (1 standard drink = 0.6 oz pur e alcohol) [facility] Utilities Answer Date Recorded In [...] How often do you attend chur or druze services? More than 4 times per year 06/15/2022 Do you belong to any clubs o r organizations such as mandaen groups, unions, fraternal or athletic groups, or [...] Answer Date Recorded PHQ-2 Score 6 10/05/2023 [facility] of Occupat ional [facility] - Occupational Stress Questionnaire Answer Date Recorded [...] your living situation today? I have a [facility] place to live 10/17/2023 Education Answer Date Recorded What is the highest level of school you have completed or the highest degree you have received? Some college, no degree 09/28/2018 Comments No Sex and Gender Information Value Date Recorded Sex Assigned at Female 09/22/2017 1:45 PM CDT Legal Sex Female 7:19 AM DRUG ENFORCEMENT AGENT Gender Identity Female 09/22/2017 1:45 PM CDT Sexual Orientation Straight 09/22/2017 1: 45 PM CDT documented as of this encounter Patient Instructions * Patient Instructions* Heaven Daniel R.N. - 12/31/2023 1:30 PM CDT Your next INR will be WednesdayJanuary 06. You will need to call the Anticoagulation Program for warfarin dosing at the scheduled time for your nurse visit, as indicated on your Patient Appointment Guide (PAG). To reschedule your appointment or for questions about your warfarin, please call Primary Care Anticoagulation Program at [phone] from 7:30 am to 4:30 pm. Wednesday-Wednesday [...] if you start any herbal or other mkti-szi-citekmu product (check with your doctor, a nurse, [...] st Contact Info) Description 01/19/2024 3:30 PM DRUG ENFORCEMENT AGENT Nurse Only Department of Family Medicine, [facility], in [place], [place] [address] [place] [address] documented as of this encounter Goals Goal Patient Goal Type Associated Problems Recent Progress Patient-Stated? Author Blood Pressure < 140/90 Blood Pressure 138/77(01/05 3:23 PM CDT) No Honey King R.N. Do one productive activity per day General On track(2018 1:31 PM CDT) Yes Teodora Horvath R.N. 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 11/09 is doing more but not everyday 11/23 doing that most of the time, ie laundry, clean kitchen, clean bedroom 12/07/18 been gone a lot so hard to do this Engage in social activities Lifestyle On track(2018 1:32 PM CDT) No Teodora Horvath RLiyah Note: Pt will look into attending Senior vitality group at [facility] starting in November 20 went to funerals, talked with another lady she did not know there, doing [employer], swim aerobics, visited her son 11/23/18 went to [employer], going to [employer] to visit relatives, going to [employer] 12/07/18 went [place] visit mom and went to concert in [place]. Made a new friend. Hemoglobin A1c < 7.0 Result Component 9.9(05/06/19 24 1:03 PM DRUG ENFORCEMENT AGENT) No Honey King R.N. PHQ-9 Total Score (max 27) < 5 Symptom Management 16( 4 2:19 PM CDT) No Teodora Horvath R.N. documented as of this encounter Procedures Procedure Name Priority Date/Time Associated Diagnosis Comments PROTHROMBIN TIME (PT), P Routine 12/31/2023 documented in this encounter Results * Prothrombin Time (PT) (12/31/2023) EXT INR 2.80 OTHER (SPE CIFY IN ELECTRICAL ENGINEERING DESIGNER) Comment:[facility]/POC Blood (Blood, Venous) [facility] Provider LAB BLOOD ADD-ON Final Resul t OTHER (SPECIFY IN ELECTRICAL ENGINEERING DESIGNER) N/A documented in this encounter Visit Diagnoses Diagnosis Cardiomyopathy Dilated (HCC)- Primary Chronic Systolic (Congestive) Heart Failure (HCC) Thrombus Intracardiac Jail (Current) Anticoagulant Treatment Monitoring For Therapeutic Drug Therapy documented in this encounter Additional Health Concerns Assessment Noted Time PHQ-9 Depression Total Score: 16 10/04/ 024 2:19 PM CDT documented as of this encounter Care Teams Camp Dining Room Attendant Relationship Specialty Start Date End Date Mich Luevano, Harry [address] [place] [address] PCP - General 09/12/22 documented as of this encounter
--- OUTSIDE RECORDS SUMMARY | 2024-01-11 04:37 | XMS_ITS | Encounter Summary ---
Author Organization [facility] Address [address] [place] [address] Care Team Providers Care Anaesthetic Technician Name Role Phone Mich Luevano D.O. Primary Care Pro vider Reason for Visit * Reason Onset Date Comments Phone Contact 01/04/2024 Update Encounter Details Date Type Department Care Team (Latest Contact Info) Description 01/04/2024 Clinical Communication Department of Family Medicine, [place], [place] [address] [place] [address] Mich Luevano D.O. [address] [place] [address] Phone Contact (Update ) Social History Tobacco Use Types Packs/Day Years Used Date Smoking Tobacco: Never Passive Smoke Exposure: Never Smokeless Tobacco: Never Alcohol Use Standard Drinks/Week Comments Yes 1 (1 standard drink = 0.6 oz pur e alcohol) [facility] Utilities Answer Date Recorded In the past [...] often do you attend chur ch or tenriism services? More than 4 times per year [...] Answer Date Recorded PHQ-2 Score 6 10/05/2023 [facility] of Occupat ional Health - Occupational [...] your living situation today? I have a [facility] place to live 10/17/2023 Education Answer Date Recorded What is the highest level of school you have completed or the highest degree you have received? Some college, no degree 09/28/2018 Comments No Sex and Gender Information Value Date Recorded Sex Assigned at Female 09/22/2017 1:45 PM CDT Legal Sex Female 7:19 AM FISH AND WILDLIFE TECHNICIAN Gender Identity Female 09/22/2017 1:45 PM CDT Sexual Orientation Straight 09/22/2017 1: 45 PM CDT documented as of this encounter Plan of Treatment Upcoming Encounters Date Type Department Care Team (Late st Contact Info) Description 01/19/2024 3:30 PM FISH AND WILDLIFE TECHNICIAN Nurse Only Department of Family Medicine, [facility], in [place], [place] [address] [place] [address] documented as of this encounter Goals Goal Patient Goal Type Associated Problems Recent Progress Patient-Stated? Author Blood Pressure < 140/90 Blood Pressure 138/77(01/05 3:23 PM CDT) No Honey King R.N. 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 Made a new friend. Hemoglobin A1c < 7.0 Result Component 9.9(05/06/19 24 1:03 PM FISH AND WILDLIFE TECHNICIAN) No Honey King ROsvaldoN. PHQ-9 Total Score (max 27) < 5 Symptom Management 16( 4 2:19 PM CDT) No Teodora Horvath R.N. documented as of this encounter Visit Diagnoses Not on filedocumented in this encounter Additional Health Concerns Assessment Noted Time PHQ-9 Depression Total Score: 16 024 2:19 PM CDT documented as of this encounter Care Teams Anaesthetic Technician Relationship Specialty Start Date End Date Mich Luevano D.O. [address] [place] [address] PCP - General 09/12/22 documented as of this encounter
--- OUTSIDE RECORDS SUMMARY | 2024-01-11 04:37 | XMS_ITS | Encounter Summary ---
Author Organization [facility] Address [address] [place] [address] Care Team Providers Care Guest Relations Officer Name Role Phone Mich Luevano D.O. Primary Care Pro vider Reason for Visit * Reason Onset Date Comments Order Request 11/19/2023 Encounter Details Date Type Department Care Team (Late st Contact Info) Description 11/19/2023 Clinical Communication Department of Family Medicine, [facility], [place], [place] [address] [place] [address] Mich Luevano D.O. [address] [place] [address] Order Request Social History Tobacco Use Types Packs/Day Years Used Date Smoking Tobacco: Never Passive Smoke Exposure: Never Smokeless Tobacco: Never Alcohol Use Standard Drinks/Week Comments Yes 1 (1 standard drink = 0.6 oz pur e alcohol) [facility] Utilities Answer Date Recorded In the past 12 months has e electric, gas, oil, or water [employer] threatened to shut off services in your [...] often do you attend chur ch or synagogue services? More than 4 times per year 06/15/2022 Do you belong to any clubs o r organizations such as worship groups, unions, fraternal or athletic groups, or [...] Answer Date Recorded PHQ-2 Score 6 10/05/2023 [facility] of Occupat ional Health - Occupational Stress [...] your living situation today? I have a [facility] place to live 10/17/2023 Education Answer Date Recorded What is the highest level of school you have completed or the highest degree you have received? Some college, no degree 09/28/2018 Comments No Sex and Gender Information Value Date Recorded Sex Assigned at Female 09/22/2017 1:45 PM CDT Legal Sex Female 7:19 AM HALFTONE OPERATOR Gender Identity Female 09/22/2017 1:45 PM CDT Sexual Orientation Straight 09/22/2017 1: 45 PM CDT documented as of this encounter Miscellaneous Notes * Telephone Encounter - Lily Tucker - 11/24/2023 9:42 AM CDT Form faxed, copy to chart documented in this encounter Plan of Treatment Upcoming Encounters Date Type Department Care Team (Late st Contact Info) Description 01/19/2024 3:30 PM HALFTONE OPERATOR Nurse Only Department of Family Medicine, [facility], in [place], [place] [address] [place] [address] documented as of this encounter Goals Goal Patient Goal Type Associated Problems Recent Progress Patient-Stated? Author Blood Pressure < 140/90 Blood Pressure 138/77(01/05 3:23 PM CDT) No Honey King R.N. 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 radiation control technician: clean the kitchen, vacuum, laundry 11/09 [...] lady she did not know there, doing [employer], swim aerobics, visited her son 11/23/18 went to [employer], going to [place] to visit relatives, going to [employer] 12/07/18 went [place] to visit mom and went to concert in [place]. Made a new friend. Hemoglobin A1c < 7.0 Result Component 9.9(05/06/19 24 1:03 PM HALFTONE OPERATOR) No Honey King RLiliya. PHQ-9 Total Score (max 27) < 5 Symptom Management 16( 4 2:19 PM CDT) No Teodora Horvath ROsvaldoN. documented as of this encounter Visit Diagnoses Not on filedocumented in this encounter Additional Health Concerns Assessment Noted Time PHQ-9 Depression Total Score: 16 10/04/ 024 2:19 PM CDT documented as of this encounter Care Teams Guest Relations Officer Relationship Specialty Start Date End Date Mich Luevano D.O. [address] [place] [address] PCP - General 09/12/22 documented as of this encounter
--- OUTSIDE RECORDS SUMMARY | 2024-01-11 04:37 | XMS_ITS | Encounter Summary ---
Author Organization [facility] Address [address] [place] [address] Care Team Providers Care Rescue Instructor Name Role Phone Mich Luevano D.O. Primary Care Pro vider Reason for Visit * Reason Comments Med Refill Encounter Details Date Type Department Care Team (Late st Contact Info) Description 12/06/2023 Refill Department of Family Medicine, [place], [place] [address] [place] [address] Mich Luevano D.O. [address] [place] [phone] Med Refill Social History Tobacco Use Types Packs/Day Years Used Date Smoking Tobacco: Never Passive Smoke Exposure: Never Smokeless Tobacco: Never Alcohol Use Standard Drinks/Week Comments Yes 1 (1 standard drink = 0.6 oz pur e alcohol) [facility] Utilities Answer Date Recorded In the [...] How often do you attend chur or confucianist services? More than 4 times per year 06/15/2022 Do you belong to any clubs o r organizations such as sikh groups, unions, fraternal or athletic groups, or [...] Answer Date Recorded PHQ-2 Score 6 10/05/2023 [facility] [place] of Occupat ional Health - Occupational Stress [...] your living situation today? I have a [facility] place to live 10/17/2023 Education Answer Date Recorded What is the highest level of school you have completed or the highest degree you have received? Some college, no degree 09/28/2018 Comments No Sex and Gender Information Value Date Recorded Sex Assigned at Female 09/22/2017 1:45 PM CDT Legal Sex Female 7:19 AM CRAFT COORDINATOR Gender Identity Female 09/22/2017 1:45 PM CDT Sexual Orientation Straight 09/22/2017 1: 45 PM CDT documented as of this encounter Plan of Treatment Upcoming Encounters Date Type Department Care Team (Late st Contact Info) Description 01/19/2024 3:30 PM CRAFT COORDINATOR Nurse Only Department of Family Medicine, [facility], in [place], [place] [address] [address] documented as of this encounter Goals Goal Patient Goal Type Associated Problems Recent Progress Patient-Stated? Author Blood Pressure < 140/90 Blood Pressure 138/77(01/05 3:23 PM CDT) No Honey King R.N. 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 Note: Pt will look into attending Senior vitality group at [facility] starting in November 20 went to funerals, talked with another lady she did not know there, doing [employer], swim aerobics, visited her son 11/23/18 went to [employer], going to [place] to visit relatives, going to [employer] 12/07/18 went [place] mom and went to concert in [place]. Made a new friend. Hemoglobin A1c < 7.0 Result Component 9.9(05/06/19 24 1:03 PM CRAFT COORDINATOR) No Honey King ROsvaldoN. PHQ-9 Total Score (max 27) < 5 Symptom Management 16( 4 2:19 PM CDT) No Teodora Horvath R.N. documented as of this encounter Visit Diagnoses Not on filedocumented in this encounter Additional Health Concerns Assessment Noted Time PHQ-9 Depression Total Score: 16 024 2:19 PM CDT documented as of this encounter Care Teams Rescue Instructor Relationship Specialty Start Date End Date Mich Luevano D.O. [address] [place] [phone] PCP - General 09/12/22 documented as of this encounter
--- OUTSIDE RECORDS SUMMARY | 2024-01-11 04:37 | XMS_ITS | Encounter Summary ---
Author Organization [facility] Address [address] [place] [address] Care Team Providers Care Senior Contracts Manager Name Role Phone Mich Luevano D.O. Primary Care Pro vider Reason for Visit * Reason Onset Date Comments Panda Doc Form 11/24/2023 Order #[id number] Encounter Details Date Type Department Care Team (Latest Contact Info) Description 11/24/2023 Clinical Communication Department of Family Medicine, [facility], [place], [place] [address] [place] [address] Mich Luevano D.O. [address] [place] [address] Panda Doc Form (Order #[id number]) Social History Tobacco Use Types Packs/Day Years Used Date Smoking Tobacco: Never Passive Smoke Exposure: Never Smokeless Tobacco: Never Alcohol Use Standard Drinks/Week Comments Yes 1 (1 standard drink = 0.6 oz pur e alcohol) [facility] Utilities Answer Date Recorded In [...] often do you attend chur ch or voodoo services? More than 4 times per year 06/15/2022 Do you belong to any clubs o r organizations such as taoist groups, unions, fraternal or athletic groups, or [...] Answer Date Recorded PHQ-2 Score 6 10/05/2023 [facility] of Occupat ional Health - Occupational Stress [...] your living situation today? I have a [facility] place to live 10/17/2023 Education Answer Date Recorded What is the highest level of school you have completed or the highest degree you have received? Some college, no degree 09/28/2018 Comments No Sex and Gender Information Value Date Recorded Sex Assigned at Female 09/22/2017 1:45 PM CDT Legal Sex Female 7:19 AM NITRATE OPERATOR Gender Identity Female 09/22/2017 1:45 PM CDT Sexual Orientation Straight 09/22/2017 1: 45 PM CDT documented as of this encounter Miscellaneous Notes * Telephone Encounter - Lily Tucker - 11/24/2023 9:50 AM CDT Form faxed, copy to chart documented in this encounter Plan of Treatment Upcoming Encounters Date Type Department Care Team (Late st Contact Info) Description 01/19/2024 3:30 PM NITRATE OPERATOR Nurse Only Department of Family Medicine, [facility], in [place], [place] [address], [place] [address] documented as of this encounter Goals Goal Patient Goal Type Associated Problems Recent Progress Patient-Stated? Author Blood Pressure < 140/90 Blood Pressure 138/77(01/05 3:23 PM CDT) No Honey King ROsvaldoN. Do one productive activity per day General On track(2018 1:31 PM CDT) Yes Teodora Horvath R.N. 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 Note: Pt will look into attending Senior vitality group at [facility] starting in November 20 went to funerals, talked with another lady she did not know there, doing [employer], swim aerobics, visited her son 11/23/18 went to [employer], going [place] to [place], going to [employer] 12/07/18 went [place] mom and went to concert in [place]. Made a new friend. Hemoglobin A1c < 7.0 Result Component 9.9(05/06/19 24 1:03 PM NITRATE OPERATOR) No Honey King ROsvaldoN. PHQ-9 Total Score (max 27) < 5 Symptom Management 16( 2:19 PM CDT) No Teodora Horvath, R.N. documented as of this encounter Visit Diagnoses Not on filedocumented in this encounter Additional Health Concerns Assessment Noted Time PHQ-9 Depression Total Score: 16 024 2:19 PM CDT documented as of this encounter Care Teams Senior Contracts Manager Relationship Specialty Start Date End Date Mich Luevano D.O. [address] [place] [address] PCP - General 09/12/22 documented as of this encounter
--- OUTSIDE RECORDS SUMMARY | 2024-01-11 04:37 | XMS_ITS | Encounter Summary ---
Author Organization [facility] Address [address] [place] [address] Care Team Providers Care Workers Compensation Claims Adjuster Name Role Phone Mich Luevano D.O. Primary Care Pro vider Reason for Visit * Reason Onset Date Comments PandaDoc Form 01/06/2024 Order [id number] Encounter Details Date Type Department Care Team (Latest Contact Info) Description 01/06/2024 Clinical Communication Department of Family Medicine, [facility], in [place], [place] [address] [place] [address] Mich Luevano D.O. [address] [place] [address] PandaDoc Form (Order [id number]) Social History Tobacco Use Types Packs/Day Years Used Date Smoking Tobacco: Never Passive Smoke Exposure: Never Smokeless Tobacco: Never Alcohol Use Standard Drinks/Week Comments Yes 1 (1 standard drink = 0.6 oz pur e alcohol) [facility] Utilities Answer Date Recorded In the past [...] often do you attend chur ch or restoration services? More than 4 times per year 06/15/2022 Do you belong to any clubs o r organizations such as mu-ism groups, unions, fraternal or athletic groups, or [...] Answer Date Recorded PHQ-2 Score 6 10/05/2023 [facility] of Occupat ional Health - Occupational [...] your living situation today? I have a [facility] place to live 10/17/2023 Education Answer Date Recorded What is the highest level of school you have completed or the highest degree you have received? Some college, no degree 09/28/2018 Comments No Sex and Gender Information Value Date Recorded Sex Assigned at Female 09/22/2017 1:45 PM CDT Legal Sex Female 7:19 AM SOFTWARE PROJECT ENGINEER Gender Identity Female 09/22/2017 1:45 PM CDT Sexual Orientation Straight 09/22/2017 1: 45 PM CDT documented as of this encounter Miscellaneous Notes * Telephone Encounter - Silvia Engel - 01/10/2024 9:54 AM CDT Form faxed and scanned to chart. documented in this encounter Plan of Treatment Upcoming Encounters Date Type Department Care Team (Late st Contact Info) Description 01/19/2024 3:30 PM SOFTWARE PROJECT ENGINEER Nurse Only Department of Family Medicine, [facility], in [place], [place] [address] [place] [address] documented as of this encounter Goals Goal Patient Goal Type Associated Problems Recent Progress Patient-Stated? Author Blood Pressure < 140/90 Blood Pressure 138/77(01/05 3:23 PM CDT) No Honey King RLiliya. Do one productive activity per day General On track(2018 1:31 PM CDT) Yes Teodora Horvath, R.N. 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 Note: Pt will look into attending Senior vitality group at [facility] starting in November 20 went to funerals, talked with another lady she did not know there, doing [employer], swim aerobics, visited her son 11/23/18 went to [employer], going [place] to visit [place], going to [employer] 12/07/18 went [place] to visit mom and went to concert in [place]. Made a new friend. Hemoglobin A1c < 7.0 Result Component 9.9(05/06/19 24 1:03 PM SOFTWARE PROJECT ENGINEER) No Honey King ROsvaldoN. PHQ-9 Total Score (max 27) < 5 Symptom Management 16( 2:19 PM CDT) No Teodora Horvath, R.N. documented as of this encounter Visit Diagnoses Not on filedocumented in this encounter Additional Health Concerns Assessment Noted Time PHQ-9 Depression Total Score: 16 10/04/ 024 2:19 PM CDT documented as of this encounter Care Teams Workers Compensation Claims Adjuster Relationship Specialty Start Date End Date Mich Luevano D.O. [address] [place] [address] PCP - General 09/12/22 documented as of this encounter
--- OUTSIDE RECORDS SUMMARY | 2024-01-11 04:37 | XMS_ITS | Encounter Summary ---
Author Organization [facility] Address [address] [place] [address] Care Team Providers Care Canal Boat Captain Name Role Phone Mich Luevano D.O. Primary Care Pro vider Reason for Referral * Outpatient (Routine) - Authorized Specialty Diagnoses / Procedures Referred By Contac t Referred To Contact Diagnoses Cerumen Impacted Bilateral Procedures Ear cerumen removal Mich Luevano D.O. [address] [place] [address] Phone: tel: fax: Referral ID Status Reason Start Date Expiration Date V isits Requested Visits Authorized [id number] Authorized 01/06/2024 01/05/2025 1 1 * Outpatient (Routine) - Authorized Specialty Diagnoses / Procedures Referred By Contac t Referred To Contact Family Medicine Mich Luevano D.O. [address] [place] [address] Phone: tel: fax: [facility] Referral ID Status Reason Start Date Expiration Date V isits Requested Visits Authorized [id number] Authorized 01/06/2024 07/07/2025 1 1 Scheduling Instructions 1-2 weeks recheck groin/abdomen abscess * Outpatient (Routine) - Authorized Specialty Diagnoses / Procedures Referred By Contac t Referred To Contact [facility] Mich Luevano D.O. [address] [place] [address] Phone: tel: fax: [facility] Referral ID Status Reason Start Date Expiration Date V isits Requested Visits Authorized [id number] Authorized 01/06/2024 07/07/2025 1 1 * Outpatient (Routine) - Authorized Specialty Diagnoses / Procedures Referred By Contac t Referred To Contact Diagnoses Abscess Skin Procedures US Abdomen Limited Soft Tissue Mich Luevano D.O. [address] [place] [address] Phone: tel: fax: [facility] Referral ID Status Reason Start Date Expiration Date V isits Requested Visits Authorized [id number] Authorized 01/06/2024 01/05/2025 1 1 * Outpatient (Routine) - Authorized Specialty Diagnoses / Procedures Referred By Contac t Referred To Contact Family [facility] Mich Luevano D.O. [address] [place] [address] Phone: tel: fax: [facility] Referral ID Status Reason Start Date Expiration Date V isits Requested Visits Authorized [id number] Authorized 01/06/2024 07/07/2025 1 1 Scheduling Instructions 6-8 weeks follow up depression * Outpatient (Routine) - Authorized Specialty Diagnoses / Procedures Referred By Seven reddy Referred To Contact Diagnoses Cerumen Impacted Bilateral Procedures FAM Ear wax removal procedure Mich Luevano D.O. [address] [place] [address] Phone: tel: fax: [facility] Referral ID Status Reason Start Date Expiration Date V isits Requested Visits Authorized [id number] Authorized 01/06/2024 01/05/2025 1 1 Reason for Visit * Reason Comments Boil * Appointment Request (Routine) - Closed Specialty Diagnoses / Procedures Referred By Seven reddy Referred To Contact Family Medicine Referral ID Status Reason Start Date Expiration Date Visits Re quested Visits Authorized [id number] Closed 01/05/2024 01/04/2025 1 1 Encounter Details Date Type Department Care Team (Late st Contact Info) Description 01/06/2024 3:30 PM CDT Office Visit Department of Family Medicine, [place], [place] [address] [place] [phone] Mich Luevano D.O. [address] [place] [phone] Abscess Skin (Primary Dx); Cerumen Impacted Bilateral; Morbid Obesity (HCC); Candidiasis Intertrigo; Health Maintenance Examination Adult; Depression Major Recurrent Moderate (HCC) Social History Tobacco Use Types Packs/Day Years Used Date Smoking Tobacco: Never Passive Smoke Exposure: Never Smokeless Tobacco: Never Alcohol Use Standard Drinks/Week Comments Yes 1 (1 standard drink = 0.6 oz pur e alcohol) [facility] Utilities Answer Date Recorded In the [...] week 06/15/2022 How often do you attend [facility] or orthodoxy services? More than 4 times per year 06/15/2022 Do you belong to any clubs o r organizations such as yazidi groups, unions, fraternal or athletic groups, or [...] Answer Date Recorded PHQ-2 Score 6 10/05/2023 [facility] [place] of Occupat ional Health - Occupational Stress [...] your living situation today? I have a [facility] place to live 10/17/2023 Education Answer Date Recorded What is the highest level of school you have completed or the highest degree you have received? Some college, no degree 09/28/2018 Comments No Sex and Gender Information Value Date Recorded Sex Assigned at Female 09/22/2017 1:45 PM CDT Legal Sex Female 7:19 AM WAREHOUSE PROCESSOR Gender Identity Female 09/22/2017 1:45 PM CDT Sexual Orientation Straight 09/22/2017 1: 45 PM CDT documented as of this encounter Last Filed Vital Signs Vital Sign Reading Time Taken Comments Blood Pressure 138/77 01/06/2024 3:23 PM CDT Pulse 83 01/06/2024 3:23 PM CDT Temperature 36.3 ??C (97.3 ??F) 01/06/2024 3:23 PM CD T Respiratory Rate - - Oxygen Saturation - - Inhaled Oxygen Concentration - - Weight 85.9 kg (189 lb 6 oz) 01/06/2024 3:23 PM CDT Height - - Body Mass Index 34.64 10/17/2023 2:50 PM CDT documented in this encounter Progress Notes * Nissa Mukherjee L.P.N. - 01/06/2024 3:30 PM CDT Jeanine is seen by Dr. Luevano, who ordered lavage of both ears due to impacted cerumen bilateral. Verified there are no PE (pressure equalization) tubes in place. The procedure was explained to the patient and verbal consent obtained. Irrigation was performed using a large syringe and 250 ccwarm tap water bilaterally. Irrigant returned minute of cerumen in the left ear, with small amount of hard cerumen.in the right ear more towards the middle of the canal. But the tympanic membrane is 90 percent visible The procedure was tolerated well, without complication. Instructed not to place cotton tip swabs or other foreign objects in ears and to call the office if there is pressure, discomfort, irritability, and/or decreased hearing. Understanding verbalized. Provider notified of completion. Encourage the patient to use [employer] and call the clinic if she would like another ear lavage. documented in this encounter Procedure Notes * Nissa Mukherjee L.P.N. - 01/06/2024 3:30 PM CDTAssociated Order(s): Ear cerumen removal Post-Procedure Diagnose(s): Cerumen Impacted Bilateral Ear cerumen removal Performed by: Nissa Mukherjee L.P.N. Authorized by: Mich Luevano D.O. Care team members present 1. Nissa Mukherjee L.P.N. PROCEDURE DETAILS Location: left ear and right ear Procedure type: irrigation Scope used: otoscope CONSENT Consent obtained: verbal [...] Hearing quality: normal Complications: no immediate complications documented in this encounter Plan of Treatment Upcoming Encounters Date Type Department Care Team (Late st Contact Info) Description 01/19/2024 3:30 PM WAREHOUSE PROCESSOR Nurse Only Department of Family Medicine, [facility], in [place], [place] [address] [address] Scheduled Orders Name Type Priority Associated Diagnoses Order Schedule FAM Ear wax removal procedure Procedures Routine Cerumen Impacted Bilateral Expected: 01/06/2024, Expires: 04/13/2024 US Abdomen Limited Soft Tissue Imaging RAD - Routine (most inpatients and all outpatients) Abscess Skin Expected: 01/06/2024, Expires: 04/07/2025 Scheduled Referrals Name Type Priority Associated Diagnoses Orde r Schedule Family Medicine office visit (clinic) Outpatient Referral Routine Expected: 01/06/2024, Expires: 04/07/2025 Family Medicine office visit (clinic) Outpatient Referral Routine Expected: 01/13/2024, Expires: 04/07/2025 Family Medicine office visit (clinic) Outpatient Referral Routine Expected: 01/06/2024, Expires: 04/07/2025 documented as of this encounter Goals Goal Patient Goal Type Associated Problems Recent Progress Patient-Stated? Author Blood Pressure < 140/90 Blood Pressure 138/77(01/05 3:23 PM CDT) No Honey King R.N. 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 Note: Pt will look into attending Senior vitality group at [facility] starting in November 20 went to funerals, talked with another lady she did not know there, doing [employer], swim aerobics, visited her son 11/23/18 went to [employer], going to [place] to visit relatives, going to [employer] 12/07/18 went to [place] to visit mom and went to concert in [place]. Made a new friend. Hemoglobin A1c < 7.0 Result Component 9.9(05/06/19 24 1:03 PM WAREHOUSE PROCESSOR) No Honey King RLiyah PHQ-9 Total Score (max 27) < 5 Symptom Management 16( 2:19 PM CDT) No Teodora Horvath ROsvaldoN. documented as of this encounter Procedures Procedure Name Priority Date/Time Associated Diagnosis Comments CA RMVL IMPACT CERUMEN IRRIG UNILAT Routine 01/06/2024 3:30 PM CDT Cerumen Impacted Bilateral documented in this encounter Results * CA RMVL IMPACT CERUMEN IRRIG UNILAT (01/06/2024 3:30 PM CDT) Narrative MMODAL - 01/06/2024 3:30 PM CDT Nissa Mukherjee L.P.N. ? 01/10/2024 11:21 AM Ear cerumen removal Performed by: Nissa Mukherjee L.PLiyah Authorized by: Mich Luevano D.O. ?? Care [...] S URGICAL ORDERABLES Final Result MMODAL NA documented in this encounter Visit Diagnoses Diagnosis Abscess Skin- Primary Cerumen Impacted Bilateral Morbid Obesity (HCC) Candidiasis Intertrigo Health Maintenance Examination Adult Depression Major Recurrent Moderate (HCC) documented in this encounter Additional Health Concerns Assessment Noted Time PHQ-9 Depression Total Score: 16 10/04/ 024 2:19 PM CDT documented as of this encounter Care Teams Canal Boat Captain Relationship Specialty Start Date End Date Mich Luevano D.O. [address] [place] [address] PCP - General 09/12/22 documented as of this encounter
[2024-01-11 04:38] LABS: Slide Review Reflex No
--- OUTSIDE RECORDS SUMMARY | 2024-01-11 04:38 | XMS_ITS | Encounter Summary ---
Author Organization [facility] Address [address] [place] [address] Care Team Providers Care Wrapper Operator Name Role Phone Mich Luevano D.O. Primary Care Pro vider Reason for Visit * Outpatient (Routine) - Closed Specialty Diagnoses / Procedures Referred By Seven t Referred To Contact Anticoagulation Diagnoses Retirement (Current) Anticoagulant Treatment Thrombus Intracardiac Congestive Heart Failure Ejection Fraction Less Than 35 Percent And [place] [facility] Association Class 2-3 (HCC) Monitoring For Therapeutic Drug Therapy Li Riggs D.O. Phone: tel: fax: [facility] Referral ID Status Reason Start Date Expiration Date Visits Re quested Visits Authorized [id number] Closed 05/06/2021 05/06/[phone] Encounter Details Date Type Department Care Team (Latest Contact Info) Description 10/15/2023 10:10 AM CDT Anticoagulation Visit Department of Anticoagulation in [place], [place] [address] [place] [address] Li Riggs D.O. 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 No 06/15/2022 Within the last year, have y ou been humiliated or emotionally abused in other ways by your partner or ex-partner? No Within the last year, have y ou been kicked, hit, slapped, or otherwise physically hurt by your partner or ex-partner? No 06/15/2022 Within the last year, have y ou been raped or forced to have any kind of sexual activity by your partner or ex-partner? No 06/15/2022 Social Connection and Isolat ion Panel [NHANES] Answer Date Recorded In a typical week, how many times do you talk on the phone with family, friends, or neighbors? Three times a week 06/15/2022 How often do you get togethe r with friends or relatives? Twice a week 06/15/2022 How often do you attend chur ch or christian services? More than 4 times per year [...] Answer Date Recorded PHQ-2 Score 6 10/05/2023 [facility] - Occupational Stress Questionnaire Answer Date Recorded [...] the money to buy more. Never true 06/16/19 Within the past 12 months, t he food you bought just didn't last and you didn't have money to get more. Never true 06/15/2022 PRAPARE - Transportation Answer Date Re corded In the past 12 months, has l ack of transportation kept you from medical appointments or from getting medications? No 05/2022 In the past 12 months, has l ack of transportation kept you from meetings, work, or from getting things needed for daily living? No 06/15/2022 Housing Stability Vital Sign Answer Roger e Recorded In the last 12 months, was t here a time when you were not able to pay the mortgage or rent on time? No 06/15/2022 Number of Places Lived in the Last Year Not on f ile 06/15/2022 In the last 12 months, was t here a time when you did not have a steady place to sleep or slept in a mcc (including now)? No 06/15/2022 Depression Answer Date Recor ded PHQ-9 Total [...] Answer Date Recorded Employment status Retired 06/15/2022 Education Answer Date Recorded What is the highest level of school you have completed or the highest degree you have received? Some college, no degree 09/28/2018 Comments No Sex and Gender Information Value Date Recorded Sex Assigned at Female 09/22/2017 1:45 PM CDT Legal Sex Female 7:19 AM PRINT SUPPORT SPECIALIST Gender Identity Female 09/22/2017 1:45 PM CDT Sexual Orientation Straight 09/22/2017 1: 45 PM CDT documented as of this encounter Patient Instructions * Patient Instructions* Nat Montez R.N. - 10/15/2023 10:10 AM CDT Your next INR will be in 6 weeks. You will need to call the Anticoagulation Program for warfarin dosing at the scheduled time for your nurse visit, as indicated on your Patient Appointment Guide (PAG). To reschedule your appointment or for questions about your warfarin, please call Primary Care Anticoagulation Program at [phone] from 7:30 am to 4:30 pm. Wednesday-Wednesday [...] if you start any herbal or other gntm-pql-[id number] product (check with your doctor, a nurse, or pharmacist). If you change your diet significantly. If you decide to stop or start using tobacco or alcohol. If you notice unusual bruising or bleeding. If you notice dark, tarry, or bright red stools or blood in your urine. If you have a painful and swollen calf. documented in this encounter Progress Notes * Nat Montez R.N. - 10/15/2023 10:10 AM CDT Warfarin Maintenance Nursing Protocol Goal Range 2.0-3.0 (version approved 04/2021) Visit Type: Telephone Primary reason for visit: Routine f/u OR f/u per previous visit recommendations Information provided by:patient INR result: 2.1 Goal range: 2.0-3.0 Inclusion Criteria: All inclusion criteria met. Proceeded to exclusion criteria. Exclusion Criteria: Section 1: No Section 1 exclusion criteria, proceeded to Section 2. Section 2: No Section 2 exclusion criteria, proceeded to screening criteria. Screening Criteria: All screening criteria negative. Testing interval extension evaluation: INR in range today? Yes, but patient has history of an intracardiac thrombus (LA or LV apical), patient not eligible for testing interval extension. Proceeded to maintenance warfarin dosing and follow-up. Additional Info: None Previous INR was therapeutic. Today???s INR is Therapeutic. Dosing and follow up recommendation: Protocol dosing range for INR 2.0-3.0: No change in weekly dose. Currently bridging? no. Next INR in twice the amount of time since last INR (max duration is 4-6 weeks): 4-6 weeks. Additional dosing or follow-up information: None. Pt is on injectable anticoagulant: No. Plan used: Protocol. See Anticoagulation Track Calendar for dosing and plan details. Anticoagulation Visit Summary: Patient repeats back dosing instructions, date of next INR, and has no further questions at this time. Total time spent with patient: N/A documented in this encounter Plan of Treatment Upcoming Encounters Date Type Department Care Team (Late st Contact Info) Description 01/19/2024 3:30 PM PRINT SUPPORT SPECIALIST Nurse Only Department of Family Medicine, [facility], in [place], [place] [address] [place] [phone] documented as of this encounter Goals Goal Patient Goal Type Associated Problems Recent Progress Patient-Stated? Author Blood Pressure < 140/90 Blood Pressure 138/77(01/05 3:23 PM CDT) No Honey King R.N. 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 Note: Pt will look into attending Senior vitality group at [facility] starting in November 20 went to funerals, talked with another lady she did not know there, doing [employer], swim aerobics, visited her son 11/23/18 went to [employer], going to [place] to visit relatives, going to [employer] 12/07/18 went to [place] to visit mom and went to concert in [place]. Made a new friend. Hemoglobin A1c < 7.0 Result Component 9.9(05/06/19 24 1:03 PM PRINT SUPPORT SPECIALIST) No Honey King R.N. PHQ-9 Total Score (max 27) < 5 Symptom Management 16( 2:19 PM CDT) No Teodora Horvath ROsvaldoN. 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 [address] [place] [phone] PCP - General 09/12/22 documented as of this encounter
--- OUTSIDE RECORDS SUMMARY | 2024-01-11 04:38 | XMS_ITS | Encounter Summary ---
Author Organization [facility] Address [address] [place] [address] Care Team Providers Care Support Services Manager Name Role Phone Mich Luevano D.O. Primary Care Pro vider Reason for Visit * Reason Onset Date Comments Med Question 11/12/2023 Encounter Details Date Type Department Care Team (Late st Contact Info) Description 11/12/2023 Clinical Communication Department of Family Medicine, [facility], [place], [place] [address] [place] [address] Mich Luevano D.O. [address] [place] [address] Med Question Social History Tobacco Use Types Packs/Day Years Used Date Smoking Tobacco: Never Passive Smoke Exposure: Never Smokeless Tobacco: Never Alcohol Use Standard Drinks/Week Comments Yes 1 (1 standard drink = 0.6 oz pur e alcohol) [facility] Utilities Answer Date Recorded In the past 12 months has e electric, gas, oil, or water [employer] threatened to shut off services in your [...] often do you attend chur ch or sabianist services? More than 4 times per year 06/15/2022 Do you belong to any clubs o r organizations such as lutheran groups, unions, fraternal or athletic groups, or [...] Answer Date Recorded PHQ-2 Score 6 10/05/2023 [facility] [place] of Occupat ional Health - Occupational [...] living situation today? I have a [facility] place to live 10/17/2023 Education Answer Date Recorded What is the highest level of school you have completed or the highest degree you have received? Some college, no degree 09/28/2018 Comments No Sex and Gender Information Value Date Recorded Sex Assigned at Female 09/22/2017 1:45 PM CDT Legal Sex Female 7:19 AM LEARNING DEVELOPER Gender Identity Female 09/22/2017 1:45 PM CDT Sexual Orientation Straight 09/22/2017 1: 45 PM CDT documented as of this encounter Miscellaneous Notes * Telephone Encounter - Luis Alfredo Maravilla R.N. - 11/16/2023 11:04 AM CDT SUBJECTIVE CHIEF COMPLAINT / REASON FOR CALL Med Question Information Discussed Contacted patient's daughter, Yennifer, to follow-up on medications. She states that she will be getting them all dropped off to her later today and can look at it then. She was told this was perfectlyfine. If there is something that she needs to get Jeanine to her appointment on Wednesday to just let usknow. I just saw the reminder I had sent to myself and want to touch base to be sure that nothing fell through the cracks. PLAN Disposition/Recommendation: self-care is appropriate at this time, patient encouraged to call back with questions Information/Education: patient/caller able to teach back Caller agreeable to plan of care: yes The following references were used: nursing clinical judgement * Telephone Encounter - Luis Alfredo Maravilla R.N. - 11/12/2023 4:24 PM CDT SUBJECTIVE CHIEF COMPLAINT / REASON FOR CALL Med Question Information Discussed Patient's daughter, Yennifer (auth on file) was contacted as the message sent to us had literally every medication listed including over the counter medications and narcotic pain medications. Daughter was advised that most medications have refills available at the [facility] and the prescription should be able to be transferred. This would probably be the quickest way since it hard to know what medications the patient is needing. Daughter was advised to contact us on Wednesday (over via portal over the weekend) with any medications that they will absolutely need before the appointment on Wednesday next week. Will send reminder to look into this on Wednesday as well which daughter appreciates. Daughter also states that the appointment on WednesdayNov 21 is supposed to be a phone visit. We will be sure that our provider is aware. PLAN Disposition/Recommendation: as noted above Information/Education: patient/caller able to teach back Caller agreeable to plan of care: yes The following references were used: nursing clinical judgement documented in this encounter Plan of Treatment Upcoming Encounters Date Type Department Care Team (Late st Contact Info) Description 01/19/2024 3:30 PM LEARNING DEVELOPER Nurse Only Department of Family Medicine, [facility], in [place], [place] [address] [place] [address] documented as of this encounter Goals Goal Patient Goal Type Associated Problems Recent Progress Patient-Stated? Author Blood Pressure < 140/90 Blood Pressure 138/77(01/05 3:23 PM CDT) No Honey King R.N. Do one productive activity per day General On track(2018 1:31 PM CDT) Yes Teodora Horvath R.N. 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 Note: Pt will look into attending Senior vitality group at [facility] starting in November 20 went to funerals, talked with another lady she did not know there, doing [employer], swim aerobics, visited her son 11/23/18 went to [place], going to [place] to visit relatives, going to [employer] 12/07/18 went to [place] to visit mom and went to concert in [place]. Made a new friend. Hemoglobin A1c < 7.0 Result Component 9.9(05/06/19 24 1:03 PM LEARNING DEVELOPER) No Honey King ROsvaldoNOsvaldo PHQ-9 Total Score (max 27) < 5 Symptom Management 16( 4 2:19 PM CDT) No Teodora Horvath R.N. documented as of this encounter Visit Diagnoses Not on filedocumented in this encounter Additional Health Concerns Assessment Noted Time PHQ-9 Depression Total Score: 16 024 2:19 PM CDT documented as of this encounter Care Teams Support Services Manager Relationship Specialty Start Date End Date Mich Luevano D.O. [address] [facility] [place] [address] PCP - General 09/12/22 documented as of this encounter
--- OUTSIDE RECORDS SUMMARY | 2024-01-11 04:38 | XMS_ITS | Encounter Summary ---
Author Organization [facility] Address [address] [place] [address] Care Team Providers Care Credit Adjuster Name Role Phone Mich Luevano D.O. Primary Care Pro vider Reason for Visit * Reason Onset Date Comments Anticoagulation 10/21/2023 Hospital dischar ge, SNF admit Encounter Details Date Type Department Care Team (Latest Contact Info) Description 10/21/2023 Clinical Communication Department of Anticoagulation in [place], [place] [address] [place] [address] Stacey Suero, ROsvaldoN. [address] [place] [address] Anticoagulation (Hospital discharge, SNF admit) Social History Tobacco Use Types Packs/Day Years Used Date Smoking Tobacco: Never Passive Smoke Exposure: Never Smokeless Tobacco: Never Alcohol Use Standard Drinks/Week Comments Yes 1 (1 standard drink = 0.6 oz pur e alcohol) [facility] Utilities Answer Date Recorded In the [...] How often do you attend chur or adventist services? More than 4 times per year 06/15/2022 Do you belong to any clubs o r organizations such as congregation groups, unions, fraternal or athletic groups, or [...] PHQ-2 Score 6 10/05/2023 [facility] [place] of Occupat ional Health - Occupational Stress [...] PM CDT Legal Sex Female 7:19 AM BUSHER HELPER Gender Identity Female 09/22/2017 1:45 PM CDT Sexual Orientation Straight 09/22/2017 1: 45 PM CDT documented as of this encounter Miscellaneous Notes * Telephone Encounter - Tammi Ramirez R.N. - 11/24/2023 1:24 PM CDT SUBJECTIVE CHIEF COMPLAINT / REASON FOR CALL Anticoagulation (Hospital discharge, SNF admit) PLAN The following information was provided: Spoke with patient about home health care coming to do INR. Patient states that home health care should be coming today to check INR. Appt moved to today, and canceled POC that was scheduled on 11/24 Information/Education: patient/caller able to teach back The following references were used: nursing clinical judgement * Telephone Encounter - Mayra Ernandez - 11/23/2023 3:22 PM CDT Daughter said that HH will do INR this week. Daughter not sure when or which HH agency. Daughter will call HH to confirm when agency will come this week and call anticoagulation back. * Telephone Encounter - Heaven Daniel R.N. - 11/22/2023 12:46 PM CDT Spoke with patient today and she stated she believes daughter has everything set up with [facility] to do POC. Asked when C will be seeing her, so I can get her on the schedule, and she said she didn't know. My daughter is taking care of that. Gave her our phone number and hours of operation and askedher to have daughter call us to let us know. She verbalized understanding and agrees with plan. * Telephone Encounter - Marie Deluca R.N. - 11/19/2023 11:57 AM CDT I talked with [facility] staff today and it was reported that pt have changed her in person visit to a telephone visit due to daughter working and unable to bring patient in. It has been noted that patient is staying with daughter out of town. She is getting home health and they are to be getting back to patient and daughter about doing INR checks with the visits. If this is not a possibility we may need to get an outside lab order sent while she is living with her daughter. 1200 I called and left a message for patient to call us back to go over options and let us know when she has an answer from home health. * Telephone Encounter - Audrey Vega - 11/18/2023 12:11 PM CDT DOS called pt and she did not have time to talk . * Telephone Encounter - Audrey Vega - 11/16/2023 12:41 PM CDT Patient was called . She did not know if she could come in on 11/21 for her ACO appointment . Patientwas going to look at her calendar and call ACO dept back . * Telephone Encounter - Audrey Vega - 11/16/2023 8:29 AM CDT 11/15 LM * Telephone Encounter - Lila Phan - 11/11/2023 2:56 PM CDT 11/10 LM * Telephone Encounter - Fartun Cortez ROsvaldoNOsvaldo - 11/11/2023 2:30 PM CDT Received fax from [facility] with pt's dosing and recheck date. INR is due 11/21. * Telephone Encounter - Nat Montez R.N. - 11/10/2023 1:58 PM CDT Received call from Sophy at [facility]. Pt will be discharging to home 11/11/23 w/homecare assistance. Sophy will fax information w/dosing and recheck date to ACO. Fax number verified with Sophy. * Telephone Encounter - Isidra Stewart - 10/28/2023 10:25 AM CDT Called and spoke to nurse Sophy at [facility]. No d/c date as of yet. She did take down our phone and fax number. She will call us when d/c is determined and fax us her current dosing information at that time. Check back in 3 weeks if we have not received an update. * Telephone Encounter - Stacey Suero R.N. - 10/21/2023 8:35 AM CDT Images from the original note were not included. Reason for admit: Fractured ilium Admit-Discharge dates: 10/17/23 - 10/20/23 Any new diagnoses pertinent to anticoagulation?: No Medication changes: START taking: diclofenac sodium (Voltaren) lidocaine (Lidoderm) naloxone (Narcan) nystatin (Nystop) oxyCODONE (Roxicodone) CHANGE how you take: acetaminophen (TylenoL) furosemide (Lasix) loperamide (Imodium A-D) warfarin (Jantoven) Tracker updated with inpatient dosing: Not at this time Discharge AVS recommendations for: - Warfarin dosin mg on 10/19 and 3 mg on 10/20 - INR recheck: 10/22/23 Did patient have a previously planned procedure during admission? No Nursing judgement considerations: Patient discharged to SNF: Sent to pharmacy for review: NO See anticoagulation tracker for final plan. documented in this encounter Plan of Treatment Upcoming Encounters Date Type Department Care Team (Late st Contact Info) Description 01/19/2024 3:30 PM BUSHER HELPER Nurse Only Department of Family Medicine, [facility], in [place], [place] [address] [place] [address] documented as of this encounter Goals Goal Patient Goal Type Associated Problems Recent Progress Patient-Stated? Author Blood Pressure < 140/90 Blood Pressure 138/77(01/05 3:23 PM CDT) No Honey King R.N. 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 Note: Pt will look into attending Senior vitality group at [facility] starting in November 20 went to funerals, talked with another lady she did not know there, doing [employer], swim aerobics, visited her son 11/23/18 went to [employer], going [place], going to [employer] 12/07/18 went [place] visit mom and went to concert in [place]. Made a new friend. Hemoglobin A1c < 7.0 Result Component 9.9(05/06/19 24 1:03 PM BUSHER HELPER) No Honey King ROsvaldoN. PHQ-9 Total Score (max 27) < 5 Symptom Management 16( 4 2:19 PM CDT) No Teodora Horvath ROsvaldoN. documented as of this encounter Procedures Procedure Name Priority Date/Time Associated Diagnosis Comments PROTHROMBIN TIME (PT), P Routine 10/22/2023 documented in this encounter Results * Prothrombin Time (PT) (10/22/2023) EXT INR 2.20 OTHER (SPE CIFY IN REGIONAL TRUCK DRIVER) Blood (Blood, Venous) 10/22/2023 us Historical Provider LAB BLOOD ADD-ON Final Resul t OTHER (SPECIFY IN REGIONAL TRUCK DRIVER) N/A documented in this encounter Visit Diagnoses Diagnosis Cardiomyopathy Dilated (HCC)- Primary Chronic Systolic (Congestive) Heart Failure (HCC) Thrombus Intracardiac Halfway (Current) Anticoagulant Treatment Monitoring For Therapeutic Drug Therapy documented in this encounter Additional Health Concerns Assessment Noted Time PHQ-9 Depression Total Score: 16 10/04/ 024 2:19 PM CDT documented as of this encounter Care Teams Credit Adjuster Relationship Specialty Start Date End Date Mich Luevano D.O. [facility] [place] [address] PCP - General 09/12/22 documented as of this encounter
--- OUTSIDE RECORDS SUMMARY | 2024-01-11 04:38 | XMS_ITS | Encounter Summary ---
Author Organization [facility] Address [address] [place] [address] Care Team Providers Care Topper Packer Name Role Phone Mich Luevano D.O. Primary Care Pro vider Encounter Details Date Type Department Care Team (Late st Contact Info) Description 07/05/2003 Historical Ophthalmology RST OPH Aureliano Newby M.D. Social History Tobacco Use Types Packs/Day Years Used Date Smoking Tobacco: Never Assessed Comments Unknown Sex and Gender Information Value Date Recorded Sex Assigned at Female 09/22/2017 1:45 PM CDT Legal Sex Female 7:19 AM YARN SIZER Gender Identity Female 09/22/2017 1:45 PM CDT Sexual Orientation Straight 09/22/2017 1: 45 PM CDT documented as of this encounter Progress Notes * Aureliano Newby M.D. - 07/05/2003 12:00 AM CDT Eye General CHIEF COMPLAINT Blurred vision HISTORY OF PRESENT ILLNESS Distance and near blur, left eye more than right x 1 year, gradually getting worse. Having more difficulty with reading, computer and playing piano. 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 Recheck 6 months, letter to with copy to pt. 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 #2 Cataracts ou - mild CDM Reports - EYEGEN Id: [id number] Status: Fnl documented in this encounter Plan of Treatment Upcoming Encounters Date Type Department Care Team (Late st Contact Info) Description 01/19/2024 3:30 PM YARN SIZER Nurse Only Department of Family Medicine, [facility], in [place], [place] [address], [place] [phone] documented as of this encounter Visit Diagnoses Not on filedocumented in this encounter Additional Health Concerns Infection Onset Date Last Indicated Resolved Time COVID19 Pending 09/05/2020 09/05/2020 09/05/2020 6 :27 PM CDT COVID19 Pending 10/23/2020 10/23/2020 10/23/2020 1 1:52 PM CDT COVID19 Pending 03/25/2022 03/25/2022 03/26/2022 2 :00 PM YARN SIZER documented as of this encounter Care Teams Topper Packer Relationship Specialty Start Date End Date Mich Luevano D.OOsvaldo [address] [place] [address] PCP - General 09/12/22 documented as of this encounter
--- OUTSIDE RECORDS SUMMARY | 2024-01-11 04:38 | XMS_ITS | Encounter Summary ---
Author Organization [facility] Address [address] [place] [address] Care Team Providers Care Chief Digital Officer Name Role Phone Mich Luevano D.O. Primary Care Pro vider Encounter Details Date Type Department Care Team (Late st Contact Info) Description 10/25/2023 Clinical Communication Department of Family Medicine, [place], [place] [address] [place] [phone] Mich Luevano D.O. [address] [place] [phone] Social History Tobacco Use Types Packs/Day Years Used Date Smoking Tobacco: Never Passive Smoke Exposure: Never Smokeless Tobacco: Never Alcohol Use Standard Drinks/Week Comments Yes 1 (1 standard drink = 0.6 oz pur e alcohol) [facility] Utilities Answer Date Recorded In the [...] How often do you attend chur or hindu services? More than 4 times per year 06/15/2022 Do you belong to any clubs o r organizations such as moravian groups, unions, fraternal or athletic groups, or [...] Answer Date Recorded PHQ-2 Score 6 10/05/2023 [facility] [place] of Occupat ional Health - Occupational Stress [...] your living situation today? I have a [facility] place to live 10/17/2023 Education Answer Date Recorded What is the highest level of school you have completed or the highest degree you have received? Some college, no degree 09/28/2018 Comments No Sex and Gender Information Value Date Recorded Sex Assigned at Female 09/22/2017 1:45 PM CDT Legal Sex Female 7:19 AM CHRONIC SPECIALIST Gender Identity Female 09/22/2017 1:45 PM CDT Sexual Orientation Straight 09/22/2017 1: 45 PM CDT documented as of this encounter Miscellaneous Notes * Telephone Encounter - Mich Luevano D.O. - 10/25/2023 9:30 AM CDT I spoke with the patient on 10/24/2022 at 9:30 a.m.. I discussed with her that CGM would not be covered by insurance as she was not on insulin at this time. She was understanding of this, we will talk further about diabetes and blood sugar checks at our visit on 11/07. Patient agreeable. Harry MEDINA documented in this encounter Plan of Treatment Upcoming Encounters Date Type Department Care Team (Late st Contact Info) Description 01/19/2024 3:30 PM CHRONIC SPECIALIST Nurse Only Department of Family Medicine, [facility], in [place], [place] [address], [place] [phone] documented as of this encounter Goals Goal Patient Goal Type Associated Problems Recent Progress Patient-Stated? Author Blood Pressure < 140/90 Blood Pressure 138/77(01/05 3:23 PM CDT) No Honey King ROsvaldoN. Do one productive activity per day General On track(2018 1:31 PM CDT) Yes Teodora Horvath ROsvaldoN. 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 Note: Pt will look into attending Senior vitality group at [facility] starting in November 20 went to funerals, talked with another lady she did not know there, doing [employer], swim aerobics, visited her son 11/23/18 went to [employer], going to [place] to visit relatives, going to [employer] 12/07/18 went to [place] to visit mom and went to concert in [place]. Made a new friend. Hemoglobin A1c < 7.0 Result Component 9.9(05/06/19 24 1:03 PM CHRONIC SPECIALIST) No Honey King, R.N. PHQ-9 Total Score (max 27) < 5 Symptom Management 16( 4 2:19 PM CDT) No Teodora Horvath, ROsvaldoN. documented as of this encounter Visit Diagnoses Not on filedocumented in this encounter Additional Health Concerns Assessment Noted Time PHQ-9 Depression Total Score: 16 024 2:19 PM CDT documented as of this encounter Care Teams Chief Digital Officer Relationship Specialty Start Date End Date Mich Luevano D.O. [address] [place] [phone] PCP - General 09/12/22 documented as of this encounter
--- OUTSIDE RECORDS SUMMARY | 2024-01-11 04:38 | XMS_ITS | Encounter Summary ---
Author Organization [facility] Address [address] [place] [address] Care Team Providers Care Tray Drier Operator Name Role Phone Mich Luevano D.O. Primary Care Pro vider Reason for Visit * Reason Onset Date Comments Depression 10/04/2023 Encounter Details Date Type Department Care Team (Late st Contact Info) Description 10/04/2023 Nurse Triage Department of Family Medicine, [facility], in [place], [place] [address] [place] [phone] Isidra Napoles, RLiyah [address] [place] [phone] Depression Social History Tobacco Use Types Packs/Day Years [...] How often do you attend chur or mandaeism services? More than 4 times per year 06/15/2022 Do you belong to any clubs o r organizations such as islam groups, unions, fraternal or athletic groups, or [...] Answer Date Recorded PHQ-2 Score 6 10/05/2023 [facility] of Occupat ional Health - Occupational [...] place to sleep or slept in a chcf (including now)? No 06/15/2022 Depression Answer Date [...] PM CDT Legal Sex Female 7:19 AM POEM WRITER Gender Identity Female 09/22/2017 1:45 PM CDT Sexual Orientation Straight 09/22/2017 1: 45 PM CDT documented as of this encounter Miscellaneous Notes * Telephone Encounter - Isidra Napoles R.N. - 10/04/2023 11:58 AM CDT Chief Complaint / Reason for Call Patient is a 82 y.o. female calling regarding Depression. Assessment Concern: She is asking to see her PCP in regards to depression. She thinks she her medication adjusted. No ambition. Present for: 3-4 months Calling to request: appt with pcp The recommended disposition is See a health care provider within 3 days. Please call back for any new, worsening, or persistent symptoms. Patient was scheduled for an acute appointment via [facility]. Reason for Disposition Requesting to talk with a counselor (mental health worker, psychiatrist, etc.) Protocols used: [id number] Care Advice Patient/Caregiver understands and will follow care advice?: Yes, able to teach back [id number] Nurse Isidra Mon Oct 04, 2023 12:01 PM Care Advice SEE PCP WITHIN 3 DAYS: * You need to be seen within 2 or 3 days. * PCP VISIT: Call your doctor (or GLASS SETTER/PA) during regular office hours and make an appointment. A clinic or urgent care center are good places to go for care if your doctor's office is closed or you can't get an appointment. NOTE: If office will be open tomorrow, tell caller to call then, not in 3 days. * IF PATIENT HAS NO PCP: A clinic or urgent care center are good places to go for care if you do not have a primary care provider. NOTE: Try to help caller find a PCP for future care (e.g., use a physician referral line). Having a PCP or 'medical home' means better long-term care. ALTERNATE DISPOSITION - CALL MENTAL HEALTH PROFESSIONAL WITHIN 3 DAYS: * If patient has a private psychiatrist, psychologist or counselor, recommend calling this mental health professional within the next 3 days. ALTERNATE DISPOSITION - CALL .S. [address] [facility] OR CALL LOCAL AGENCY: * When people call, text, or chat [phone], they will be connected to trained counselors. These trained counselors will listen to the caller, try to understand how their problems are affecting them, provide support, and connect them to resources if necessary. * ... Call, text or chat: 988 * ... Website: https://SHAPEline.org/ * If available, local mental health program: lly-yyl-lzsn. * If available, local psychiatric crisis service at [facility]: uiz-xod-ueit. NOTE TO TRIAGER - DEPRESSION: * Encourage the caller to talk about their problems and feelings. * Offer hope: People with depression do get through tough times -- even people who feel as badly asyou feel now. You can be helped. DEPRESSION - TIPS FOR HEALTHY LIVING: * There are things you can do to feel better. * Eat healthy: Eat a well-balanced diet. * Get more sleep: Most people need 7 to 8 hours of sleep each night. Being well- rested improves your mood and your sense of well-being. * Talk with Friends and Family: Share how you are feeling with someone. Make sure that your spouse,family, or friends know how you are feeling. * Exercise regularly: Take a daily walk. * Avoid alcohol. DEPRESSION - STAY ACTIVE: * Staying active can also make you feel better. * Spend time outside of your home. Go on an outing with a family member or a friend. Go to the store. Go to a movie. * Become involved in your community. Go to a place of christian or school. Join a club or parent teacher association. * Start a new hobby. * Get outside in the fresh air. Take a walk in the nearest park or forest preserve. [facility] - [facility] HELPLINE: * National [place] on Mental Illness (RILEY) * The [place] Helpline is an information and referral source for locating community mental health programs. 'Our toll-free [facility] HelpLine allows us to respond personally to hundreds of thousands of requests each year, providing free referral, information and support -- a much-needed lifeline for many.' * Toll-free phone number: 793-373-RSTJ (9517). Wednesday through Wednesday, 10 am- 6 pm, Eastern time. * Chat: https://www.riley.org/help * Text: 71739 * Email: * Website: https://www.riley.org [place] - HOTLINES AND HELPLINES: * [place]: Substance use. Website: https://www.manuel.ca/en/health-manuel/services/substance-use.html. * [place] [employer] Association (CMHA): Provides information about mental health and contact information for local CMHA offices. Website: https://cmha.ca. * [place] [employer]: Provides free, confidential information about mental health and addiction services in [facility]. Website: https://www.connexWatson Pharmaceuticalsario.ca/. Toll free number: . * Mood Disorders Association of [place] (MDAO): Offers free support programs for people across [place] with mood disorders (depression, anxiety, and bipolar disorder). Telephone Support Line: . You can call this number Wednesday through Wednesday 9:30 AM to 5:00 PM. Website: https://www.mood disorders.ca/. * Talk Suicide [place]: 'Connect to a crisis responder to get help without judgement.' Website: https://talksuicide.ca/. Toll free number: 964-366-1320. Text: 38373 (1 PM to midnight). * Wellness Together: 'Wellness Together [place] was created in response to an unprecedented rise in mental distress, and is funded by the Government of [place]. Whatever you're going through, we're here to provide mental health and substance use support.' Website: https://wellnesstoMilmenus.com.ca/. CALL BACK IF: * You feel like harming yourself * You become worse CARE ADVICE given per Depression (Adult) guideline. documented in this encounter Plan of Treatment Upcoming Encounters Date Type Department Care Team (Late st Contact Info) Description 01/19/2024 3:30 PM POEM WRITER Nurse Only Department of Family Medicine, [facility], in [place], [place] [address] [phone] documented as of this encounter Goals Goal Patient Goal Type Associated Problems Recent Progress Patient-Stated? 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 Note: Pt will look into attending Senior vitality group at [facility] starting in November 20 went to funerals, talked with another lady she did not know there, doing [employer], swim aerobics, visited her son 11/23/18 went to [employer], going to [place] to visit relatives, going to [employer] 12/07/18 went [place] to visit mom and went to concert in [place]. Made a new friend. Hemoglobin A1c < 7.0 Result Component 9.9(05/06/19 24 1:03 PM POEM WRITER) No Honey King, ROsvaldoN. PHQ-9 Total Score (max 27) < 5 Symptom Management 16( 4 2:19 PM CDT) No Teodora Horvath ROsvaldoN. documented as of this encounter Visit Diagnoses Not on filedocumented in this encounter Additional Health Concerns Assessment Noted Time PHQ-9 Depression Total Score: 0 03/22/19 24 1:00 PM POEM WRITER documented as of this encounter Care Teams Tray Drier Operator Relationship Specialty Start Date End Date Mich Luevano D.O. [address] [place] [phone] PCP - General 09/12/22 documented as of this encounter
--- OUTSIDE RECORDS SUMMARY | 2024-01-11 04:38 | XMS_ITS | Encounter Summary ---
Author Organization [facility] Address [address] [place] [address] Care Team Providers Care Fireworks Display Specialist Name Role Phone Mich Luevano D.O. Primary Care Pro vider Encounter Details Date Type Department Care Team (Late st Contact Info) Description 10/20/2023 Clinical Communication Department of Family Medicine, [place], [place] [address] [place] [phone] Mich Luevano D.O. [address] [place] [phone] Social History Tobacco Use Types Packs/Day Years Used Date Smoking Tobacco: Never Passive Smoke Exposure: Never Smokeless Tobacco: Never Alcohol Use Standard Drinks/Week Comments Yes 1 (1 standard drink = 0.6 oz pur e alcohol) [facility] Utilities Answer Date Recorded In [...] How often do you attend chur or muslim services? More than 4 times per year 06/15/2022 Do you belong to any clubs o r organizations such as mormon groups, unions, fraternal or athletic groups, or [...] Answer Date Recorded PHQ-2 Score 6 10/05/2023 [facility] [place] of Occupat ional Health - Occupational Stress [...] your living situation today? I have a [facility] place to live 10/17/2023 Education Answer Date Recorded What is the highest level of school you have completed or the highest degree you have received? Some college, no degree 09/28/2018 Comments No Sex and Gender Information Value Date Recorded Sex Assigned at Female 09/22/2017 1:45 PM CDT Legal Sex Female 7:19 AM HEARING AID MECHANIC Gender Identity Female 09/22/2017 1:45 PM CDT Sexual Orientation Straight 09/22/2017 1: 45 PM CDT documented as of this encounter Plan of Treatment Upcoming Encounters Date Type Department Care Team (Late st Contact Info) Description 01/19/2024 3:30 PM HEARING AID MECHANIC Nurse Only Department of Family Medicine, [facility], in [place], [place] [address] [place] [phone] documented as of this encounter Goals Goal Patient Goal Type Associated Problems Recent Progress Patient-Stated? Author Blood Pressure < 140/90 Blood Pressure 138/77(01/05 3:23 PM CDT) No Honey King R.N. Do one productive activity per day General On track(2018 1:31 PM CDT) Yes Teodora Horvath R.N. 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 Note: Pt will look into attending Senior vitality group at [facility] starting in November 20 went to funerals, talked with another lady she did not know there, doing [employer], swim aerobics, visited her son 11/23/18 went to [employer], going to [place] to visit relatives, going to [employer] 12/07/18 went [place] visit mom and went to concert in [place]. Made a new friend. Hemoglobin A1c < 7.0 Result Component 9.9(05/06/19 24 1:03 PM HEARING AID MECHANIC) No Honey King ROsvaldoNOsvaldo PHQ-9 Total Score (max 27) < 5 Symptom Management 16( 4 2:19 PM CDT) No Teodora Horvath RLiyah documented as of this encounter Visit Diagnoses Not on filedocumented in this encounter Additional Health Concerns Assessment Noted Time PHQ-9 Depression Total Score: 16 024 2:19 PM CDT documented as of this encounter Care Teams Fireworks Display Specialist Relationship Specialty Start Date End Date Mich Luevano D.O. [address] [place] [phone] PCP - General 09/12/22 documented as of this encounter
--- OUTSIDE RECORDS SUMMARY | 2024-01-11 04:38 | XMS_ITS | Encounter Summary ---
Author Organization [facility] Address [address] [place] [address] Care Team Providers Care Internet Technology Manager Name Role Phone Mich Luevano D.O. Primary Care Pro vider Reason for Visit * Reason Onset Date Comments Order Request 10/19/2023 Encounter Details Date Type Department Care Team (Late st Contact Info) Description 10/19/2023 Clinical Communication Department of Family Medicine, [facility], [place], [place] [address] [place] [phone] Mich Luevano D.O. [address] [place] [phone] Order Request Social History Tobacco Use Types Packs/Day Years Used Date Smoking Tobacco: Never Passive Smoke Exposure: Never Smokeless Tobacco: Never Alcohol Use Standard Drinks/Week Comments Yes 1 (1 standard drink = 0.6 oz pur e alcohol) [facility] Utilities Answer Date Recorded In the past 12 months has e electric, gas, oil, or water [employer] threatened to shut off services in your [...] often do you attend chur ch or adventism services? More than 4 times per year 06/15/2022 Do you belong to any clubs o r organizations such as hindu groups, unions, fraternal or athletic groups, or [...] Answer Date Recorded PHQ-2 Score 6 10/05/2023 [facility] [place] of Occupat ional Health - Occupational Stress [...] your living situation today? I have a [facility] place to live 10/17/2023 Education Answer Date Recorded What is the highest level of school you have completed or the highest degree you have received? Some college, no degree 09/28/2018 Comments No Sex and Gender Information Value Date Recorded Sex Assigned at Female 09/22/2017 1:45 PM CDT Legal Sex Female 7:19 AM HIM CLERK Gender Identity Female 09/22/2017 1:45 PM CDT Sexual Orientation Straight 09/22/2017 1: 45 PM CDT documented as of this encounter Plan of Treatment Upcoming Encounters Date Type Department Care Team (Late st Contact Info) Description 01/19/2024 3:30 PM HIM CLERK Nurse Only Department of Family Medicine, [facility], in [place], [place] [address] [place] [phone] documented as of this encounter Goals Goal Patient Goal Type Associated Problems Recent Progress Patient-Stated? Author Blood Pressure < 140/90 Blood Pressure 138/77(01/05 3:23 PM CDT) No Honey King R.N. Do one productive activity per day General On track(2018 1:31 PM CDT) Yes Teodora Horvath R.N. 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 Note: Pt will look into attending Senior vitality group at [facility] starting in November 20 went to funerals, talked with another lady she did not know there, doing [employer], swim aerobics, visited her son 11/23/18 went to [employer], going [place] to visit relatives, going to [employer] 12/07/18 went [place] to visit mom and went to concert in [place]. Made a new friend. Hemoglobin A1c < 7.0 Result Component 9.9(05/06/19 24 1:03 PM HIM CLERK) No Honey King ROsvaldoNOsvaldo PHQ-9 Total Score (max 27) < 5 Symptom Management 16( 4 2:19 PM CDT) No Teodora Horvath R.N. documented as of this encounter Visit Diagnoses Not on filedocumented in this encounter Additional Health Concerns Assessment Noted Time PHQ-9 Depression Total Score: 16 024 2:19 PM CDT documented as of this encounter Care Teams Internet Technology Manager Relationship Specialty Start Date End Date Mich Luevano D.O. [address] [place] [address] PCP - General 09/12/22 documented as of this encounter
--- OUTSIDE RECORDS SUMMARY | 2024-01-11 04:38 | XMS_ITS | Encounter Summary ---
Author Organization [facility] Address [address] [place] [address] Care Team Providers Care Rock Drill Operator Name Role Phone Mich Luevano D.O. Primary Care Pro vider Reason for Referral * Outpatient (Routine) - Authorized Specialty Diagnoses / Procedures Referred By Contac t Referred To Contact Family Medicine Meera Boateng M.D. [address] [place] [address] Phone: tel: fax: [facility] Referral ID Status Reason Start Date Expiration Date V isits Requested Visits Authorized [id number] Authorized 10/05/2023 04/05/2025 1 1 * Behavioral Health (Routine) - Authorized Specialty Diagnoses / Procedures Referred By Contac t Referred To Contact Psychiatry / Psychiatry and Psychology Diagnoses Depression Major Recurrent Moderate (HCC) Meera Boateng M.D. [address] [place] [address] Phone: tel: fax: [facility] Referral ID Status Reason Start Date Expiration Date V isits Requested Visits Authorized [id number] Authorized 10/05/2023 04/05/2025 1 1 Reason for Visit * Reason Comments Depression * Appointment Request (Routine) - Closed Specialty Diagnoses / Procedures Referred By Seven reddy Referred To Contact Family Medicine Referral ID Status Reason Start Date Expiration Date Visits Re quested Visits Authorized [id number] Closed 10/04/2023 10/03/2024 1 1 Encounter Details Date Type Department Care Team (Late st Contact Info) Description 10/05/2023 2:30 PM CDT Office Visit Department of Family Medicine, [place], [place] [address] [place] [phone] Idalia Root M.B.B.S., B.M.B.S. [address] [place] [phone] Depression Major Recurrent Moderate (HCC) (Primary Dx); Morbid Obesity (HCC); Colitis Microscopic Social History Tobacco Use Types Packs/Day Years [...] often do you attend chur ch or yazdanism services? More than 4 times per year [...] Answer Date Recorded PHQ-2 Score 6 10/05/2023 [facility] - [facility]ational Stress Questionnaire Answer Date [...] money to buy more. Never true 06/16/19 23 Within the past 12 months, t he [...] place to sleep or slept in a correction (including now)? No 06/15/2022 Depression Answer Date [...] PM CDT Legal Sex Female 7:19 AM CREDENTIALING COORDINATOR Gender Identity Female 09/22/2017 1:45 PM CDT Sexual Orientation Straight 09/22/2017 1: 45 PM CDT documented as of this encounter Last Filed Vital Signs Vital Sign Reading Time Taken Comments Blood Pressure 136/61 10/05/2023 2:24 PM CDT Pulse 56 10/05/2023 2:24 PM CDT Temperature - - Respiratory Rate - - Oxygen Saturation - - Inhaled Oxygen Concentration - - Weight 92.9 kg (204 lb 12.9 oz) 10/05/2023 2:24 PM CDT Height 159 cm (5' 2.6) 10/05/2023 2:24 PM CDT Body Mass Index 36.75 10/05/2023 2:24 PM CDT documented in this encounter Progress Notes * Idalia Root M.B.B.S., B.M.B.S. - 10/05/2023 2:30 PM CDT SUBJECTIVE HISTORY OF PRESENT ILLNESS Ms. Montague is a 82 y.o. female who presents to clinic today for depression follow up. Pertinent PMHx includes a history of coronary artery disease, dilated cardiomyopathy, CHF, depression, type 2 diabetes, obesity, VIOLET, hypertension with CKD. PHQ-9 score of 16 Patient has a hx of depression since 2004, noted to have been trialed on numerous different SSRIs and Wellbutrin in the past. Also had a brief trial of valium. Patient reports feeling 3/10, low mood. Describes herself as ???down in the dumps. Patient notes added stressor in life as granddaughter has moved away to [place] 1 year prior, and is expecting of great granddaughter by end of year. Patient wishes she was closer to her extended family. Patient does have 3 adult children that visit her frequently and a good relationship. Describes a good relationship with her friends she sees x1-x2 a week. Patient reports tearful episodes about 1-2 episodes per month.Tearfulness is brought on by [employer] 12 years ago. Patient reports anhedonia. No longer enjoys usual activities of leisure including reading going to concerts and TV time. Also reports decreased concentration unable to finish a chapter in a novel. Sleep is reported as good overall, sleeps about 8-9 hours a night. She is on trazodone. Has noted lately some difficulty falling asleep. No changes to nutrition, diet, no appetite changes. No psychomotor symptoms No feelings of guilt. Patient reports no suicidality, no passive wish, no risk to others, no risk to self. OBJECTIVE BP 136/61 (BP Location: Left arm, Patient Position: Sitting, Cuff Size: Large) Pulse (!) 56 Ht 159 cm Wt 92.9 kg BMI 36.75 kg/m?? ASSESSMENT / PLAN This is a well appearing patient with symptoms consistent with treatment resistant depression. A shared decision making approach was considered with the patient. Plan is to trial CBT therapy and in increase in her Wellbutrin. Return visit scheduled in 3 weeks, if no improvement consider treatment with an SNRI in conjunctionwith Wellbutrin. #1 Morbid Obesity (HCC) #2 Colitis Microscopic #3 Depression Major Recurrent Moderate (HCC) - Psychiatry and Psychology - Integrated behavioral health consult (clinic); Future; Expected date:10/05/2023 Other orders - budesonide (Entocort EC) 3 mg 24 hr capsule; Take 2 capsules (6 mg total) by mouth daily., Starting Wed10/05/2023, [facility] on file - buPROPion XL (Wellbutrin XL) 150 mg 24 hr tablet; Take 3 tablets (450 mg total) by mouth every morning., Starting Wed10/05/2023, Until Wed10/04/2024, Normal - Family Medicine office visit (clinic); Future; Expected date: 10/26/2023 I saw and evaluated the patient with the teaching physician Dr. Boateng. They were present during the murdock portions of the service and reviewed and agreed with my documentation. documented in this encounter Plan of Treatment Upcoming Encounters Date Type Department Care Team (Late st Contact Info) Description 01/19/2024 3:30 PM CREDENTIALING COORDINATOR Nurse Only Department of Family Medicine, [facility], in [place], [place] [address] [address] Scheduled Referrals Name Type Priority Associated Diagnoses Order Schedule Psychiatry and Psychology - Integrated behavioral health consult (clinic) Outpatient Referral Routine Depression Major Recurrent Moderate (HCC) Expected: 10/05/2023, Expires: 01/04/2025 Family Medicine office visit (clinic) Outpatient Referral Routine Expected: 10/26/2023 (Approximate), Expires: 01/04/2025 documented as of this encounter Goals Goal Patient Goal Type Associated Problems Recent Progress Patient-Stated? Author Blood Pressure < 140/90 Blood Pressure 138/77(01/05 3:23 PM CDT) No Honey King, ROsvaldoNOsvaldo Do one productive activity per day General On track(2018 1:31 PM CDT) Yes Teodora Horvath R.NOsvaldo Note: i.e. 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 Made a new friend. Hemoglobin A1c < 7.0 Result Component 9.9(05/06/19 24 1:03 PM CREDENTIALING COORDINATOR) No Honey King ROsvaldoN. PHQ-9 Total Score (max 27) < 5 Symptom Management 16( 4 2:19 PM CDT) No Teodora Horvath, ROsvaldoN. documented as of this encounter Visit Diagnoses Diagnosis Depression Major Recurrent Moderate (HCC)- Primary Morbid Obesity (HCC) Colitis Microscopic documented in this encounter Additional Health Concerns Assessment Noted Time PHQ-9 Depression Total Score: 16 024 2:19 PM CDT documented as of this encounter Care Teams Rock Drill Operator Relationship Specialty Start Date End Date Mich Luevano D.O. [address] [place] [address] PCP - General 09/12/22 documented as of this encounter
--- OUTSIDE RECORDS SUMMARY | 2024-01-11 04:38 | XMS_ITS | Encounter Summary ---
Author Organization [facility] Address [address] [place] [address] Care Team Providers Care Middle [employer] Math Teacher Name Role Phone Mich Luevano D.O. Primary Care Pro vider Encounter Details Date Type Department Care Team (Late st Contact Info) Description 01/25/2004 Historical Ophthalmology [facility]ST O[facility] Aureliano Newby M.D. Social History Tobacco Use Types Packs/Day Years Used Date Smoking Tobacco: Never Assessed Comments Unknown Sex and Gender Information Value Date Recorded Sex Assigned at Female 09/22/2017 1:45 PM CDT Legal Sex Female 7:19 AM POLITICAL WORKER Gender Identity Female 09/22/2017 1:45 PM CDT Sexual Orientation Straight 09/22/2017 1: 45 PM CDT documented as of this encounter Progress Notes * Aureliano Newby M.D. - 01/25/2004 12:00 AM CST Eye General CHIEF COMPLAINT 6 month f/u fuch's dystrophy both eyes, cataracts both eyes HISTORY OF PRESENT ILLNESS Sometimes I think my vision may be worse, hard to tell. Does best with large print books. Troublereading road signs until close to them. 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 #2 Cataracts ou - mild #3 No diabetic retinopathy CDM Reports - EYEGEN Id: [id number] Status: Fnl documented in this encounter Plan of Treatment Upcoming Encounters Date Type Department Care Team (Late st Contact Info) Description 01/19/2024 3:30 PM POLITICAL WORKER Nurse Only Department of Family Medicine, [facility], in [place], [place] [address] [place] [address] documented as of this encounter Visit Diagnoses Not on filedocumented in this encounter Additional Health Concerns Infection Onset Date Last Indicated Resolved Time COVID19 Pending 09/05/2020 09/05/2020 09/05/2020 6 :27 PM CDT COVID19 Pending 10/23/2020 10/23/2020 10/23/2020 1 1:52 PM CDT COVID19 Pending 03/25/2022 03/25/2022 03/26/2022 2 :00 PM POLITICAL WORKER documented as of this encounter Care Teams [employer] Math Teacher Relationship Specialty Start Date End Date Mich Luevano D.O. [address] [place] [address] PCP - General 09/12/22 documented as of this encounter
--- OUTSIDE RECORDS SUMMARY | 2024-01-11 04:38 | XMS_ITS | Encounter Summary ---
Author Organization [facility] Address [address] [place] [id number] Care Team Providers Care Therapist Respiratory Name Role Phone Mich Luevano D.O. Primary Care Pro vider Reason for Visit * Reason Comments Fall Encounter Details Date Type Department Care Team (Latest Contact Info) Description 10/17/2023 5:45 AM CDT - 10/20/2023 2:25 PM CDT Hospital Encounter [facility], [facility], [facility], Second Floor [address] [place] [address] [phone] Sonia Lucas M.D., M.S. [address] [place] [address] [phone] Rafa Mayberry M.D., M.P.H. [address] [place] [address] [phone] Aurora Bernal M.D. 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); Cardiomyopathy Dilated (HCC); Chronic Systolic (Congestive) Heart Failure (HCC); Thrombus Intracardiac; Alf (Current) Anticoagulant Treatment; Monitoring For Therapeutic Drug Therapy; Fracture Rib Multiple Closed Initial Right; Fracture Ilium Avulsion Displaced Closed Initial Left (HCC) Discharge Disposition: [facility]entiary Facility Social History Tobacco Use Types Packs/Day Years Used Date Smoking Tobacco: Never Passive Smoke Exposure: Never Smokeless Tobacco: Never Alcohol Use Standard Drinks/Week Comments Yes 1 (1 standard drink = 0.6 oz pur e alcohol) [facility] Utilities Answer Date Recorded In the past 12 months has e [employer], gas, oil, or water [employer] threatened to shut off services in your [...] often do you attend chur ch or yarsanism services? More than 4 times per year [...] Date Recorded PHQ-2 Score 6 10/05/2023 [facility] - [...] your living situation today? I have a [facility] place to live 10/17/2023 Education Answer Date Recorded What is the highest level of school you have completed or the highest degree you have received? Some college, no degree 09/28/2018 Comments No Sex and Gender Information Value Date Recorded Sex Assigned at Female 09/22/2017 1:45 PM CDT Legal Sex Female 7:19 AM RN PLASTIC SURGERY Gender Identity Female 09/22/2017 1:45 PM CDT Sexual Orientation Straight 09/22/2017 1: 45 PM CDT documented as of this encounter Last Filed Vital Signs Vital Sign Reading Time Taken Comments Blood Pressure 130/59 10/20/2023 11:50 AM CDT Pulse 73 10/20/2023 11:50 AM CDT Temperature 36.4 ??C (97.5 ??F) 10/20/2023 11:50 AM C DT Respiratory Rate 17 10/20/2023 1:06 PM CDT Oxygen Saturation 98% 10/20/2023 11:50 AM CDT Inhaled Oxygen Concentration - - Weight 93 kg (205 lb 0.4 oz) 10/19/2023 8:38 AM CDT Height 157.5 cm (5' 2) 10/17/2023 2:50 PM CDT Body Mass Index 37.5 10/17/2023 2:50 PM CDT documented in this encounter Discharge Summaries * Denisse Dotson, POsvaldoA.-C. - 10/20/2023 9:20 AM CDT DISCHARGE SUMMARY Discharge Provider: Aurora Bernal M.D. Primary Care Providers: Mich Luevano D.O. (General) [address] [place] [phone] Discharge Provider Team: [facility] Internal [facility] ([facility]) [facility] Primary Care Provider Primary Care Provider Admission Date: 10/17/2023 Discharge Date: 10/20/2023 PRINCIPAL DIAGNOSIS Fracture Ilium Avulsion Displaced Closed Initial Left (HCC) SECONDARY DIAGNOSES Principal Problem: Fracture Ilium Avulsion Displaced Closed Initial Left (HCC) Active Problems: Cardiomyopathy Dilated (HCC) Chronic Systolic (Congestive) Heart Failure (HCC) Diabetes Mellitus Type 2 (HCC) Acute On Chronic Systolic (Congestive) Heart Failure (HCC) Congestive Heart Failure Ejection Fraction Less Than 35 Percent And [place] [employer] Class 2-3 (HCC) Obstructive Sleep Apnea Adult Obesity Body Mass Index 30-39.9 Adult History Of Falling 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 * DISCHARGE DISPOSITION Penitentiary Facility [3] ACTIVE ISSUES REQUIRING FOLLOW UP --Continue weight-bearing as tolerated for LLE. --Incidental small indeterminate right parotid nodule seen on head CT. Recommend considering dedicated ultrasound for better characterization in the outpatient setting. --Continue warfarin 2 mg on 10/19 and 3 mg on 10/20, then repeat INR 10/21 to guide further dosing at facility. --Patient's daughter inquired about a continuous glucose monitor during admission, but this was deferred to the outpatient setting. She also may not qualify for insurance coverage as she is only on metformin, but this can be further discussed with primary care provider. --Patient has baseline diarrhea on Imodium at home, but recommend continuing to monitor for development of constipation with oxycodone use in the acute setting. Consider discontinuing Imodium and initiating temporary bowel regimen if needed. OUTPATIENT FOLLOW UP Scheduled Appointments 10/26/2023 1:30 PM Gely Whitfield L.Ilda.C.S.W., M.S.W. Psychiatry and Psychology 11/08/2023 3:00 PM Mich Luevano D.O. Family Medicine 11/25/2023 12:00 PM LAB BLOOD KA Laboratory Medicine 11/25/2023 12:40 PM ACO NURSE PHONE 01 DIXIE Anticoagulation For appointment details refer to your Patient Appointment Guide. TEST RESULTS PENDING AT DISCHARGE Pending Labs None DETAILS OF HOSPITAL STAY REASON FOR ADMISSION Fracture Ilium Avulsion Displaced Closed Initial Left (HCC) HOSPITAL COURSE Mrs. Jeanine Montague is an 82 y.o. female who presented to the ED 10/17/2023 with a left hip fracture following a fall. She has medical comorbidities of coronary artery disease, dilated cardiomyopathy, CHF, depression, type 2 diabetes, obesity, VIOLET, hypertension with CKD 2, asthma, chronic diarrhea. Jeanine was at home and tripped. She did not lose consciousness. She hit her left leg and hip. She presented to the [place] [facility] via EMS. In the ER she had a trauma CT scans which was significant for CT head with severe leukoaraiosis and chronic appearing infarcts involving the right frontoparietal and right parietal occipital lobes; chest x-ray with acute right 5th rib fracture and possible 4-6 right rib fractures; and CT left hip showing mildly displaced acute left iliac wing fracture. Orthopedic Surgery was consulted and indicated she could weight bear as tolerated and discharge home, however, she was unable to bear weight due to pain so she was admitted to the Family Medicine B service. Pain was controlled with scheduled Tylenol, topicals, and prn oxycodone. Respiratory therapy was consulted for rib fracture protocol, though she remained asymptomatic from her rib fracture. PT/OT were consulted and CM assisted with sending short-term rehab referrals. She remained afebrile and hemodynamically stable during admission and later discharged to [facility] in [facility] 10/20/2023. MEDICATIONS CHANGED DURING THIS HOSPITAL STAY Medications stopped: none Medications changed: Lasix (prescription changed to reflect home regimen), Tylenol, warfarin, Imodium Medications added: naloxone, oxycodone, lidocaine patch, Voltaren gel, nystatin powder CONSULTS ORDERED DURING THIS ADMISSION IP CONSULT TO ORTHOPEDIC SURGERY IP CONSULT TO CARE MANAGEMENT IP CONSULT TO CARE MANAGEMENT CONDITION AT DISCHARGE Stable I saw and evaluated Mrs. Jeanine Montague today and provided counseling [id number] at bedside. I personally spent a total 45 minutes in counseling and discussion with the patient and in coordination of care as described above to facilitate the hospital discharge. Discharge instructions were provided to the patient and caregiver(s). documented in this encounter Discharge Instructions * Discharge Instructions* Jayla Arroyo - 10/18/2023 8:59 AM CDT You were discharged from the [facility] Service. Please identify this service name if you call with questions after hospitalization. * Patient Instructions* Imani Ariza RLiliya. - 10/18/2023 9:27 AM CDT The Senior LinkAge Line?? is a service of the [place] [employer] in partnership with [facility] Agencies on Aging. It is a free service of the [facility] that connects older [place] and their families with the help they need. Call the [employer] LinkAge Line?? at: [phone] M-F, 8am-4:30pm to connect with specialists that are available to assist you with your specific needsor check out their website at [email or web address] * Attachments The following attachments cannot be sent through Care Everywhere. * Heart Failure Self-Care Plan (Citizen Of [place]) * Acute Pain and the Healing Process (Citizen [place]) * Oxycodone, Rapid Release (By mouth) (Citizen [place]) * Managing Your Oral Anticoagulant Medication: Warfarin ([place]izen [place]) documented in this encounter Medications at Time of Discharge acetaminophen (TylenoL) 500 mg tablet Take 2 tablets (1,000 mg total) by mouth 4 (four) times a day. 10/20/2023 albuterol (Ventolin HFA) 90 mcg/actuation inhalerIndications :Asthma Mild Intermittent (HCC) Inhale 2 puffs every 6 (six) hours as needed for wheezing. 54 g 3 06/15/[address] tablet Take 81 mg by mouth daily. budesonide (Entocort EC) 3 mg 24 hr capsuleIndications :Morbid Obesity (HCC),Colitis Microscopic Take 2 capsules (6 mg total) by mouth daily. 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 10/21/2023 loperamide (Imodium A-D) 2 mg capsule Take 1 capsule (2 mg total) by mouth daily as needed for diarrhea. 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 Do not crush or chew. 90 tablet 3 04/13/2023 naloxone (Narcan) 4 mg/actuation nasal spray Administer 1 spray (4 mg total) into one nostril as needed for reversal. Use 1 spray in 1 nostril. Repeat with second device in other nostril after 2-3 minutes if no or minimal response. 10/20/2023 nitroglycerin (NITROSTAT) 0.4 mg SL tabletIndications: angina Place 1 tablet (0.4 mg total) under the tongue every 5 (five) minutes as needed for chest pain Indications: angina, a type of chest pain. 25 tablet 11 01/02/2022 rosuvastatin (CRESTOR) 20 mg tabletIndications: Hyperlipidemia Take 1 tablet (20 mg total) by mouth daily. 90 tablet 3 04/13/2023 traZODone (DESYREL) 50 mg tabletIndications: Insomnia Take 1 tablet (50 mg total) by mouth at bedtime as needed for sleep. 90 tablet 3 04/13/2023 warfarin (Jantoven) 2 mg tabletIndications: Cardiomyopathy Dilated (HCC),Chronic Systolic (Congestive) Heart Failure (HCC),Thrombus Intracardiac,Alf (Current) Anticoagulant Treatment,Monitori ng For Therapeutic Drug Therapy Please take 2 mg on 10/19 and 3 mg on 10/20, then repeat INR on 10/21 to guide further dosing. 10/20/2023 buPROPion XL (Wellbutrin XL) 150 mg 24 hr tablet Take 3 tablets (450 mg total) by mouth every morning. 270 tablet 3 10/05/2023 diclofenac sodium (Voltaren) 1 % gel Apply 2 g topically 4 (four) times a day as needed (pain). Apply to painful joints and muscles. 10/20/2023 4 lidocaine (Lidoderm) 5 % adhesive patch,medicated Place 1 patch on the skin daily. Apply to painful areas. 10/20/2023 4 nystatin (Nystop) 100,000 unit/gram powder Apply 1 Application topically 2 (two) times a day. Apply to groin folds. 10/20/2023 4 oxyCODONE (Roxicodone) 5 mg immediate release tabletIndications: Acute Pain Take 0.5-1 tablets (2.5-5 mg total) by mouth every 4 (four) hours as needed for severe pain or score 7-10 of 10 (Give 2.5 mg for pain score 4-6 or give 5 mg for pain score 7-10) Indication: Acute Pain. 18 tablet 10/20/2023 4 valsartan (DIOVAN) 40 mg tablet TAKE 1/2 TABLET BY MOUTH 2 TIMES A DAY 90 tablet 1 05/18/2023 4 documented as of this encounter Progress Notes * Imani Ariza, ROsvaldoN. - 10/20/2023 10:23 AM CDT SUBJECTIVE Patient is planning to discharge today, 10/20/23, to [facility] for short-term rehabilitation. Anticipated Needs Functional Status: bathing, dressing, toileting, transfers to/from bed, chair, etc., mobility, mealpreparation, medication setup/administration, housekeeping, shopping, and transportation use ([place], use taxi/bus) Assistive Devices: eyeglasses, hearing aid/s, transfer belt, and walker - front wheeled Modifications to home environment: None Transportation: support from family/friends Anticipated discharge destination: [facility] OBJECTIVE Patient was located on [facility] room 121. ASSESSMENT / PLAN Assessment Those noted above appear to have insight into the patient's needs at this time and are planning appropriately for discharge needs. They report agreement with the below plan with no further questions at this time. Patient's family is aware of plan and will provide transportation. Plan The patient is being prepared to discharge on 10/20/2023 at 1200 if medically ready for transfer. Contact CASE MANAGEMENT if time needs to be changed. Transportation will be provided by family. . Destination - Admitted Since 10/17/2023 Service Provider Selected Services Address Phone Fax Patient Preferred [facility] [address] [facility] [address] [phone] -- Contact: RN Transportation oxygen: No oxygen needed. NURSING: - Complete documentation in the Discharge Navigator including Nursing Report Info and Facility/NextLevel of Care Info - Contact facility to give report on morning of discharge. - Send After Visit Summary and required packet of dismissal information with patient, including advance directive. PRIMARY SERVICE: - Provider to Provider call is not required. - Provide written prescriptions for all narcotics. After Visit Summary to Include: - All discharge medications include dosage, times for administration, diagnosis, and stop date. - Ongoing care - wound care, infection precautions and phone numbers to call. CASE MANAGEMENT: - Pre-admission screen has been completed. - Will continue to follow. Imani Ariza R.N. 10/20/2023 * Tiesha Chapa O.T. - 10/20/2023 9:23 AM CDT Occupational Therapy [facility] Inpatient Treatment SUBJECTIVE Patient's Name: Jeanine Montague Referring/Attending Provider: Aurora Bernal M.D. Reason for Referral: Occupational Therapy Evaluation and Treatment History of Present Illness: Jeanine Montague is a 82 y.o. female who was admitted to [facility] in [place] on 10/17/2023 for History Of Falling [Z91.81]. Precautions Weight Bearing Status: Weight bearing as tolerated bilateral lower extremities Other Precautions: Fall precautions, right 5th rib fracture Pain Assessment: Pain not reported during session. Subjective Comments: Agreeable to therapy session. Team Communication: The patient's status was discussed and coordination of care occurred with RN, PT OBJECTIVE Vital Signs: Vitals monitored throughout session; within normal ranges. Outcome Measures: AM-PAC Inpatient Short Form: Putting on and taking off regular lower body clothing?: A lot Putting on and taking off regular upper body clothing?: A Little Taking care of personal grooming such as brushing teeth?: A Little Bathing (including washing, rinsing, drying)?: A lot Toileting, which includes using toilet, bedpan, or urinal?: A lot Eating meals?: None Daily Activities Raw Score (max 24): 16 Daily Activities Standardized Score: 35.96 Interpretation: Based on scoring guidelines using the raw score value: Those going to home had an average score at or above 18 Those going to facility had an average score at or below 17 Clinicians answer the [facility] Inpatient Short Form based on observed patient activity and/or clinical judgement (ie. patient can be scored without physically performing each activity) Cognition: No observable concerns with cognition at this time Will further assess and monitor as warranted Therapeutic Interventions: ACTIVITIES OF DAILY LIVING: LOWER BODY DRESSING - Assist Level: Maximal Assist - Patient Location: Chair - LB Dressing Item: socks - Therapist Delivery: assessed, assisted, facilitated - Assist/Cues: verbal and manual for technique FUNCTIONAL TRANSFERS: SIT<>STAND - Assist Level: Stand By Assist - Equipment: front wheeled walker and gait belt - Surface: Chair - Therapist Delivery: assessed, educated, assisted, facilitated - Assist/Cues: verbal, visual, and manual for technique, proper hand placement FUNCTIONAL MOBILITY: In-room mobility performed with supervision/stand by assistance and front wheeled walker and gait belt Education/Training Provided: -Role of OT in acute setting -Fall prevention -Home safety -Energy conservation techniques -Activity modification strategies Patient was left in bedside chair at end of session with call light in reach, all needs met and questions answered. Assessment Discharge Therapy Needs - OT: Ongoing skilled occupational therapy If skilled therapy is recommended, skilled therapy can include occupational therapy provided in home health, outpatient or post-acute facility. The location of these services is determined by patient's care team in partnership with patient/family. Barriers to Discharge Home: Current functional status, Fall risk, Limited caregiver availability Barriers to Discharge Comments: Lives alone. Could stay with daughter, however daughter works during the day and has 5-6 stairs to access her apartment. Recommended Adaptive Equipment - OT: Other (Comment) Level of Care Needed - OT: Assistance with toileting, Assistance with toilet/shower transfers, Assistance with showering/bathing, Assistance with dressing, Assistance with transportation, Assistance with shopping, Assistance with housekeeping Clinical Impression: Mrs. Jeanine Montague is progressing well towards therapy goals. Grossly required standby assistance for functional mobility with use of 4 wheeled walker. Deferred further trial of activities of daily living despite encouragement. At this time she requires assistance of one for activities of godfrey ly living and instrumental activities of daily living. She remains below her functional baseline and would benefit from continued skilled occupational therapy services to progress towards baseline, to decrease caregiver burden, and to maximize safety/independence with return to meaningful daily activity. Plan OT Plan Comments: Next session: grooming/toileting in bathroom, lower body dressing with adaptive equipment if needed Functional Goals: OT Goal #1: Patient will perform toileting, including transfers, with modified independence to progress functional status. OT Goal #1 Status: Slowly progressing OT Goal #2: Patient will perform total body dressing, including clothing retrieval, with modified independence to progress functional status. OT Goal #2 Status: Slowly progressing OT Goal #3: Patient/family will demonstrate understanding of recommendations for homegoing equipment and activity modifications to optimize functional performance. OT Goal #3 Status: Slowly progressing Progress: Improving as expected Rehab potential: Ms. Montague has good potential to achieve established occupational therapy goals within the time frame outlined below. OT Frequency: OT Amount: 1 visit per day OT Frequency: 5 times per week OT Inpatient Duration : Until goals are met or hospital discharge Requires Inpatient OT Follow-Up: Yes OT - Next Inpatient Appointment: 10/21/23 Plan: Plan of care initiated Treatment interventions may include: Treatment Interventions: Therapeutic exercise, Therapeutic functional activity, Self-care/home management Occupational Therapy Attestation Statement: Patient agrees with the plan of care and goals. Billing: Time Spent with Patient Therapeutic Interventions Home Management Training (min): 12 min Time Tracking Total Timed Units (min): 12 min Total Treatment Time (min): 12 min Tiesha Chapa O.T. * Dennis Hutchison R.R.T., L.R.T. - 10/19/2023 7:10 PM CDT 10/19/23 [id number] Respiratory Mechanics (Volumes/Pressures) Rib Fracture After Trauma Assessment Yes Max Inspiratory Pressure -55 cm H2O Vital Capacity 1.92 Liters Predicted Vital Capacity 2.45 Liters Patient Position Sitting Patient Effort Good Pain Score 3 $Respiratory Mechanics Yes Patient started Hyperinflation Therapy (HIT) algorithm on: 10/17/23 Patient seen for 24 hrs Rib fracture reassessment , patient achieved predicted VC >= 50% and NIF <= -30 once, 24 hours after HIT order is discontinued in phase 3. Contact RT if any concerns. Electronically signed by: Dennis Hutchison R.R.T., L.R.T. 10/19/23 19:05 PM CDT * Wiliam Luis POsvaldoTOsvaldo, D.P.T. - 10/19/2023 2:48 PM CDT Physical Therapy Inpatient Treatment SUBJECTIVE Patient's Name: Jeanine Montague Referring/Attending Provider: Aurora Bernal M.D. Reason for Referral: Physical Therapy Evaluate and Treat History of Present Illness: Jeanine Montague is a 82 y.o. female who was admitted to [facility] in [place] on 10/17/2023 for History Of Falling [Z91.81] Precautions Weight Bearing Status: Weight bearing as tolerated bilateral lower extremities Other Precautions: Fall precautions, right 5th rib fracture Pain Assessment: Pain Ratin/10 on a 0-10 point scale, Location: Left hip Patient/Caregiver Goals: Return to home Subjective Comments: Patient agreed to session. OBJECTIVE Vital Signs Vitals not formally assessed during session. No concerns during chart review and the patient had nosigns or symptoms consistent with vital changes during therapy session. Outcome Measures: AM-PAC Inpatient Short Form: AM-PAC Basic Mobility (V.2) How much help from another person do you currently need???If the patient hasn't done an activity recently, how much help from another person do you think he/she would needif he/she tried? 1. Turning from your back to your side while in a flat bed without using bedrails?: A Little 2. Moving from lying on your back to sitting on the side of a flat bed without using bedrails?: A Little 3. Moving to and from a bed to a chair (including a wheelchair)?: A Little 4. Standing up from a chair using your arms (e.g., wheelchair, or bedside chair)?: A Little 5. To walk in hospital room?: A Little 6. Climbing 3-5 steps with a railing?: A Lot [facility] Basic Mobility (V.2) Raw Score: 17 -[facility] Basic Mobility (V.2) Standardized Score: 39.67 Interpretation: Based on scoring guidelines using the raw score value: Those going to home had an average score at or above 18 Those going to facility had an average score at or below 17 Clinicians answer the [facility] Inpatient Short Form based on observed patient activity and/or clinical judgement (ie. patient can be scored without physically performing each activity) Therapeutic Interventions: SIT TO SUPINE: Assistance Level: Supervision of 1 Device: head of bed elevated and bedrail Assistance/Cueing: no cueing required SIT TO STAND: Assistance Level: Contact Guard Assistance of 1 Device: gait belt and front wheeled walker Surface: Toilet Assistance/Cueing: verbal and tactile for Anterior weight shifting and Upper extremity placement STAND TO SIT: Assistance Level: Contact Guard Assistance of 1 Device: gait belt and front wheeled walker Surface: Bed Assistance/Cueing: verbal and tactile for Alignment with seated surface, Eccentric control, Upper extremity placement, and Walker placement GAIT: Distance: 15 meters Assistance Level:Contact Guard Assistance of 1 Device: gait belt and front wheeled walker Quality: antalgic, decreased gait speed, decreased stance time Left, step to Assistance/Cueing:verbal for sequencing with walker with emphasis on weight bearing through upper extremities into walker during single limb support on the left to offload and help with pain control. Comments: Overall distance/tolerance limited primarily due to weakness - specifically, upper extremity weakness (related to placing weight into the walker through arms). She denied any significant increase in left hip pain, rating it 4/10 during ambulation which was the same rating she provided at rest. The patient's status was discussed and the following coordination of care occurred with the RN, OT,Primary Service, and Care Management Family/Caregiver Present: No Patient was left in bed with bed alarm on at end of session with call light in reach, all needs metand questions answered. Assessment Discharge Therapy Needs - PT: Ongoing skilled physical therapy If skilled therapy is recommended, skilled therapy can include physical therapy provided by home health, outpatient clinic, or a post-acute facility. The location of these services is determined by the patient's care team in partnership with patient/family. Level of Care Needed - PT: Assistance with bed mobility, Assistance with transfers, Assistance withwalking and moving around the home, Assistance with stairs Equipment Recommended - PT: Front-wheeled walker Barriers to Discharge Home: Current functional status, Fall risk, Limited caregiver availability Barriers to Discharge Comments: Lives alone. Could stay with daughter, however daughter works during the day and has 5-6 stairs to access her apartment. Clinical Impression: Jeanine participated well in physical therapy this afternoon and is demonstrating progress from a functional mobility perspective. She was able to increase her ambulation distance to about 50 feet today and generally completed mobility tasks with contact guard assistance using a walker. Her pain remained tolerable and she was primarily limited due to upper extremity weakness related to heavy reliance on the walker. She remains below her functional baseline and would benefit from ongoing rehabilitation efforts to further optimize her functional status. PT will continue to follow while she is here in the hospital. Rehab potential: Ms. Montague has Good potential to achieve established physical therapy goals within the time frame outlined below. Progress: Progressing toward goals Plan PT Plan Comments: Progress bed mobility with less reliance on hospital bed features. Progress transfer training and ambulation distance/tolerance/quality as able. Functional Goals: PT Inpatient Goals PT Goal #1: Patient will complete supine to/from sitting transitions independently without hospitalbed features while maintaining activity precautions to demonstrate return to functional baseline PT Goal #1 Status: Progressing PT Goal #2: Patient will complete sit to/from stand transitions with modified independence using least restrictive assistive device while maintaining activity precautions to demonstrate progression toward functional baseline PT Goal #2 Status: Progressing PT Goal #3: Patient will ambulate 35 m with modified independence using least restrictive assistivedevice while maintaining activity precautions to demonstrate progression toward functional baselineand enable safe household distance ambulation PT Goal #3 Status: Progressing PT Goal #4: Patient will negotiate 6 stairs with supervision using least restrictive assistive device while maintaining activity precautions to enable her to safely access her daughter's apartment with supervision from family PT Goal #4 Status: Ongoing Treatment Plan: Plan: Continue with current plan PT Frequency: 5 times per week Requires Inpatient Follow-Up: Yes PT - Next Inpatient Appointment: 10/20/23 Patient agrees with the plan of care and goals. Treatment interventions may include: Treatment/Interventions: Therapeutic exercise, Therapeutic functional activity, Neuromuscular re-education, Gait training, Self-care/home management Billing: Time Spent with Patient Therapeutic Interventions Therapeutic Activity (min): 16 min Time Tracking Total Timed Units (min): 16 min Total Treatment Time (min): 16 min Wiliam Luis P.T., D.P.T. * Sheryl Dorsey Pharm.D., R.Ph. - 10/19/2023 12:22 PM CDT Pharmacist Progress Note Reason for admission: 82 year old Female admitted 10/17/23 with Left hip fracture after a fall. PMH: intracardiac thrombus on warfarin, coronary artery disease, dilated cardiomyopathy, CHF, depression, type 2 diabetes, obesity, VIOLET, hypertension with CKD 2, asthma, chronic diarrhea. OBJECTIVE Home meds: per provider: reconciled Patient own medications: none Active Home Medications Medication Sig acetaminophen (TYLENOL) 325 mg tablet Take 650 mg by mouth every 4 (four) hours as needed. albuterol (Ventolin HFA) 90 mcg/actuation inhaler Inhale 2 puffs every 6 (six) hours as needed for wheezing. aspirin [address] tablet Take 81 mg by mouth daily. budesonide (Entocort EC) 3 mg 24 hr capsule Take 2 capsules (6 mg total) by mouth daily. buPROPion XL (Wellbutrin XL) 150 mg 24 hr tablet Take 3 tablets (450 mg total) by mouth every morning. furosemide (LASIX) 40 mg tablet Take 1 tablet (40 mg total) by mouth daily. loperamide (IMODIUM A-D) 2 mg capsule metFORMIN XR (GLUCOPHAGE-XR) 500 mg 24 hr tablet take two tablets by mouth twice a day metoprolol succinate (TOPROL-XL) 25 mg 24 hr tablet Take 1 tablet (25 mg total) by mouth daily. Do not crush or chew. nitroglycerin (NITROSTAT) 0.[address] 1 tablet (0.4 mg total) under the tongue every 5 (five) minutes as needed for chest pain Indications: angina, a type of chest pain. rosuvastatin (CRESTOR) 20 mg tablet Take 1 tablet (20 mg total) by mouth daily. traZODone (DESYREL) 50 mg tablet Take 1 tablet (50 mg total) by mouth at bedtime as needed for sleep. valsartan (DIOVAN) 40 mg tablet TAKE 1/2 TABLET BY MOUTH 2 TIMES A DAY warfarin (Jantoven) 2 mg tablet Please take as directed by your Anticoagulation Clinic. Renal: Estimated Creatinine Clearance: 53.6 mL/min (by C-G formula based on SCr of 0.89 mg/dL). Last BM: just admitted, noted to have chronic diarrhea per admission report Warfarin Warfarin Indication: LV Thrombus Type of therapy: Continuation Prior average daily dose: 2.7 Comorbidities: Heart failure diagnosis (stable/compensated) Are any of these comorbidities new with admission? No Target INR: 2 - 3 Day of therapy: 2 Notable drug interactions include the following: none Concurrent anticoagulation: home ASA INR reversal agents: were not given Warfarin Administrations (last 168 hours) Date/Time Action Medication Dose 10/18/23 1653 Given warfarin tablet 2 mg (Jantoven) 2 mg 10/17/23 1656 Given warfarin tablet 3 mg (Jantoven) 3 mg INR (no units) Date Value Status 10/19/2023 2.9 Final 10/18/2023 2.6 Final 10/17/2023 2.1 Final INR Reflex, POCT, B (no units) Date Value Status 10/15/2023 2.1 Final ASSESSMENT / PLAN Fall, Left hip fracture. Surgery not indicated per orthopedic consult. Pain control with Tylenol 4 g/day, oxycodone PRN. Intracardiac thrombus, CAD/CHF, CKD2. Holding home furosemide (reported as taking 3 times per week). Continue home ASA, metoprolol, valsartan, rosuvastatin, and warfarin. Warfarin: regimen per anticoag visit on 10/14: 2 mg Wed and Wed; 3 mg all other days. Admission INR 2.1 and warfarin continued with 3 mg (home dose would have been 2 mg) Continue with 1.5 mg tonight for INR 2.9. Admission medication reconciliation. Held: furosemide, metformin Changed: Tylenol from PRN to scheduled, trazodone PRN to HS scheduled. New: Insulin SS, oxycodone PRN. Sheryl Dorsey Pharm.D., R.Ph. * Imani Ariza R.N. - 10/19/2023 10:40 AM CDT SUBJECTIVE Patient is followed for discharge planning needs. Patient indicated desire to discharge to a shelter facility. A list of shelter facility options (that they geographically reside or requested) has been provided to and reviewed with patient. Disclaimers: Financial disclosure providedinforming patient of our ownership and financial relationship of the [facility], home health, and hospice agencies. Reviewed Medicare coverage and provided a list of options. OBJECTIVE Patient was sitting up in chair on FR2C room 121. Referrals were sent to the following locations: Destination - Admitted Since 10/17/2023 Service Provider Request Status Selected Services Address Phone Fax Patient Preferred [facility] Pending - Request Sent -- [phone] [facility] [id number] -- [facility] Pending - Request Sent -- [phone] [facility] [address] [phone] -- ASSESSMENT / PLAN ASSESSMENT Dermatology Technician met with patient to discuss discharge plan. Patient was agreeable to sending referralsfor shelter facilities. Patient was provided lists for both [facility] and [facility]. Patient was instructed to highlight the referrals she would like to start sending to and CaseManager will send referrals later today. Patient's daughter, Yennifer, was contacted and updated on the plan. PLAN Patient will provide a list of referrals she is agreeable to start sending to. Dermatology Technician will continue to follow and send referrals as appropriate. Imani Ariza R.N. 10/19/23 * Denisse Dotson P.A.-C. - 10/19/2023 8:37 AM CDT [facility] Progress Note SUBJECTIVE Mrs. Montague was seen and examined in her room this morning. No acute events overnight. She was having some left hip been proximal leg pain, but had not yet going to bed overnight. Of note she hadnot received any oxycodone since the night before. Her nurses were giving her pain medication with her morning meds as we are visiting. She reports baseline chronic diarrhea for which she was on Imodium. She is tolerating an oral diet. We discussed disposition planning as she was initially hoping to discharge to her daughter's apartment. We discussed other family members concerns about her being alone when her daughter is working. She agrees, that she was not yet able to ambulate independently at this time. She then stated she would be open to short-term rehab referrals as long as insurance would cover the cost. I have reviewed the current medication list. OBJECTIVE VITAL SIGNS Temperature: [36.3 ??C-36.5 ??C] 36.5 ??C Resp Rate: [14-16] 15 Blood Pressure: (124-141)/(53-60) 124/53 SpO2: [94 %] 94 % Pulse Rate: [74-75] 74 PHYSICAL EXAMINATION General: Alert, oriented, and in no acute distress. Resting comfortably in bed. Psychiatric: Calm, cooperative. Mood and affect congruent. Logical thought processes. Good eye contact. HEENT: Anicteric. Conjunctiva clear. Mucous membranes moist. Cardiovascular: Regular rate and rhythm. No murmurs, rubs or gallops. No peripheral edema. Respiratory: Lungs clear to auscultation bilaterally. Nonlabored breathing on room air. Gastrointestinal: Soft, nondistended, nontender abdomen. Active bowel sounds. Skin: Warm, dry. No new rashes or lesions noted. DIAGNOSTICS I have independently reviewed labs, ECG, and imaging. ASSESSMENT / PLAN Ms. Montague is an 82 y.o. female from [place], [place] hospitalized on [facility] for evaluation and management of left iliac wing and right 5th rib fractures after a fall 10/17/2023. Medical comorbidities include coronary artery disease, dilated cardiomyopathy, CHF, depression, type2 diabetes, obesity, VIOLET, hypertension with CKD 2, asthma, and chronic diarrhea. Evaluation in the ED was negative for acute traumatic findings on CT head and cervical spine, but chest x-ray identified acute appearing mildly displaced posterior/lateral right 5th rib fracture and possible additional minimally displaced posterior right 4th and 6th rib fractures and CT left hip found acute fracture of the anterosuperior left iliac wing with approximately 1 cm lateral displacement of the fracture fragment. Orthopedic surgery was consulted and recommended weight-bearing as tolerated with conservative management. 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 New since 02/09/2012, but chronic appearing infarcts involving the right frontoparietal and right parietal occipital lobes. - Continue home aspirin, furosemide, rosuvastatin, metoprolol, valsartan, and warfarin # Depression - Continue home bupropion # Type 2 diabetes # Obesity BMI 37 # VIOLET - Resume home metformin - Continue moderate intensity aspart correction scale - Patient's daughter asked about a CGM, but she likely will not qualify for insurance coverage. Canfurther discuss outpatient or obtain [id number] if desired. # Chronic diarrhea - Continue home imodium, budesonide and monitor for any developing constipation given new oxycodoneuse # Asthma - Continue home PRN albuterol # Parotid nodule Small indeterminate right parotid nodule incidentally noted on imaging. - Consider dedicated nonemergent ultrasound for better characterization. Diet: Adult Diet Regular; 60 gm Carbs (per meal) Tubes/lines: PIV VTE prophylaxis: therapeutic anticoagulation Current Activity/Mobility: BMAT Level 3 (Able to stand but cannot walk; needs staff assist + safetyequipment) Fall Injury Prevention: I have discussed My Plan for Safe Activity with the patient. Disposition: Penitent[facility] Facility Stable to discharge criteria (not yet met): none The above plan of care was discussed with Dr. Bernal, Family Medicine science consultant. Dutch Dotson PA-C [facility] Internal Medicine Pager: [phone] I personally spent a total of 35 minutes providing and coordinating care today. * Tiesha Chapa O.T. - 10/18/2023 3:31 PM CDT 10/18/23 1530 Reason Therapy Missed Reason Therapy Missed Patient declined therapy (Occupational therapy order received, patient chart reviewed. Attempted occupational therapy evaluation patient declined participation. Unable to attempted p.m. as patient was with another provider. We will follow up per plan of care) Tiesha Chapa O.T. * Brandon Jamison, R.ROsvaldoTOsvaldo, L.R.TOsvaldo - 10/18/2023 1:33 PM CDT Patient started Hyperinflation Therapy (HIT) algorithm on: 10/16 Patient is currently in phase 1 of the HIT assessment pathway. Next Respiratory Mechanics due: 10/19 1599 Plan of Care: Continue Rib Fracture protocol. First 24 Hour Rib Fx Measurements Predicted:2.45L/50%:1.23L VC NIF Initial: 1.31 -60 6 Hour: 1.26 -60 12 Hour: 1.45 -47 18 Hour: 1.29 -50 RT will continue patient on HIT pathway until patient is able to achieve predicted VC >= 50% and NIF <= -30 five times in phase 1. OR RT will continue patient on HIT pathway until patient is able to achieve predicted VC >= 50% and NIF <= -30 once, 24 hours after HIT order is discontinued in phase 3. Electronically signed by: Brandon Jamison R.R.T., L.R.T. 10/18/23 5:44 PM CDT * Annabelle Wright APRN, C.N.P. - 10/18/2023 9:54 AM CDT [facility] Progress Note SUBJECTIVE Jeanine was seen during morning rounds. She had just finished working with PMR. She was able to get out of bed to the chair with assistance and reported that went well. She is leery of ambulating longer distances at this time, we discussed trying a higher dose of oxycodone prior to ambulation. She iseating and drinking without difficulty. I have reviewed the current medication list. OBJECTIVE VITAL SIGNS Temperature: [36.5 ??C-37.2 ??C] 36.6 ??C Resp Rate: [16-18] 16 Blood Pressure: (107-141)/(43-87) 131/62 SpO2: [90 %-99 %] 94 % Height: [157.5 cm] 157.5 cm Weight: [92.5 kg] 92.5 kg BSA (Calculated - sq m): [2.01 sq meters] 2.01 sq meters BMI (Calculated): [37.3 kg/m??] 37.3 kg/m?? Pulse Rate: [63-90] 87 PHYSICAL EXAMINATION General: No acute distress. Mental: Alert and oriented x 3. Responds appropriately to questions. Psych: Mood and affect appear appropriate. Eyes: PERRLA. Extra ocular motion intact. ENT: Oral mucosa pink and moist. No JVD noted. Heart: Regular rhythm and rate; no gallops, murmurs, clicks or rubs. Lungs: Clear to auscultation bilaterally; no wheezes, rhonchi or rales. Respirations even and non-labored on room air. Abdomen: Soft, nontender, nondistended. Active bowel sounds x 4 quadrants. Extremities: No pedal edema noted. Skin: Warm and dry, well perfused. There is a left knee area of ecchymosis. There is also a yeast infection under her pannus DIAGNOSTICS I have independently reviewed labs, ECG, xray, and CT from the last 3 months . ASSESSMENT / PLAN Ms. Montague is hospitalized on [facility] for evaluation and management of History Of Falling. # History Of Falling # Mildly displaced fractures of the superior left iliac wing with approximately 1 cm of lateral displacement # acute right 5th rib fracture with possible fractures of 4 and 6 Orthopedic surgery recommends she can weight bear as tolerate. Surgery is not currently indicated. Will consult Case Management for potential rehab as it is not clear if she will be able to return home following hospitalization. She is breathing easily without pain -respiratory therapy to perform rib fracture protocol. -schedule Tylenol, PRN oxycodone -consult PMR # coronary artery disease # dilated cardiomyopathy # CHF # hypertension with CKD 2 (baseline creatinine 0.9) # intracardiac thrombus -continue home aspirin, furosemide, rosuvastatin, metoprolol, valsartan # depression -continue home bupropion # type 2 diabetes # obesity # VIOLET -hold home metformin, but likely resume 10/18 since there are no acute metabolic concerns -utilize moderate intensity aspart correction scale while holding metformin # chronic diarrhea Will monitor for constipation since she is now using opioids -continue home imodium, budesonide # asthma -continue home PRN albuterol DIET: Adult Diet Regular; 60 gm Carbs (per meal) TUBES/LINES: PIV VTE PROPHYLAXIS: continue warfarin, INR 2.1 CODE STATUS: DNR BASELINE MOBILITY: BMAT Level 4 (Able to stand and walk) DISPOSITION: Uncertain, pending PMR evaluation Discussed with Dr. Bernal I personally spent a total of 35 minutes providing and coordinating care today. * Sheryl Dorsey PharmOsvaldoDOsvaldo, R.Ph. - 10/18/2023 8:21 AM CDT Pharmacist Progress Note Reason for admission: 82 year old Female admitted 10/17/23 with Left hip fracture after a fall. PMH: intracardiac thrombus on warfarin, coronary artery disease, dilated cardiomyopathy, CHF, depression, type 2 diabetes, obesity, VIOLET, hypertension with CKD 2, asthma, chronic diarrhea. OBJECTIVE Home meds: per provider: reconciled Patient own medications: none Active Home Medications Medication Sig acetaminophen (TYLENOL) 325 mg tablet Take 650 mg by mouth every 4 (four) hours as needed. albuterol (Ventolin HFA) 90 mcg/actuation inhaler Inhale 2 puffs every 6 (six) hours as needed for wheezing. aspirin [address] tablet Take 81 mg by mouth daily. budesonide (Entocort EC) 3 mg 24 hr capsule Take 2 capsules (6 mg total) by mouth daily. buPROPion XL (Wellbutrin XL) 150 mg 24 hr tablet Take 3 tablets (450 mg total) by mouth every morning. furosemide (LASIX) 40 mg tablet Take 1 tablet (40 mg total) by mouth daily. loperamide (IMODIUM A-D) 2 mg capsule metFORMIN XR (GLUCOPHAGE-XR) 500 mg 24 hr tablet take two tablets by mouth twice a day metoprolol succinate (TOPROL-XL) 25 mg 24 hr tablet Take 1 tablet (25 mg total) by mouth daily. Do not crush or chew. nitroglycerin (NITROSTAT) 0.[address] 1 tablet (0.4 mg total) under the tongue every 5 (five) minutes as needed for chest pain Indications: angina, a type of chest pain. rosuvastatin (CRESTOR) 20 mg tablet Take 1 tablet (20 mg total) by mouth daily. traZODone (DESYREL) 50 mg tablet Take 1 tablet (50 mg total) by mouth at bedtime as needed for sleep. valsartan (DIOVAN) 40 mg tablet TAKE 1/2 TABLET BY MOUTH 2 TIMES A DAY warfarin (Jantoven) 2 mg tablet Please take as directed by your Anticoagulation Clinic. Renal: Estimated Creatinine Clearance: 50 mL/min (by C-G formula based on SCr of 0.95 mg/dL). Last BM: just admitted, noted to have chronic diarrhea per admission report Warfarin Warfarin Indication: LV Thrombus Type of therapy: Continuation Prior average daily dose: 2.7 Comorbidities: Heart failure diagnosis (stable/compensated) Are any of these comorbidities new with admission? No Target INR: 2 - 3 Day of therapy: 2 Notable drug interactions include the following: none Concurrent anticoagulation: home ASA INR reversal agents: were not given Warfarin Administrations (last 168 hours) Date/Time Action Medication Dose 10/17/23 1656 Given warfarin tablet 3 mg (Martoven) 3 mg INR (no units) Date Value Status 10/18/2023 2.6 Final 10/17/2023 2.1 Final INR Reflex, POCT, B (no units) Date Value Status 10/15/2023 2.1 Final ASSESSMENT / PLAN Fall, Left hip fracture. Surgery not indicated per orthopedic consult. Pain control with Tylenol 4 g/day, oxycodone PRN. Intracardiac thrombus, CAD/CHF, CKD2. Holding home furosemide (reported as taking 3 times per week). Continue home ASA, metoprolol, valsartan, rosuvastatin, and warfarin. Warfarin: regimen per anticoag visit on 10/14: 2 mg Wed and Wed; 3 mg all other days. Admission INR 2.1 and warfarin continued with 3 mg (home dose would have been 2 mg) Continue with 2 mg tonight for INR 2.6. Admission medication reconciliation. Held: furosemide, metformin Changed: Tylenol from PRN to scheduled, trazodone PRN to HS scheduled. New: Insulin SS, oxycodone PRN. Sheryl Dorsey PharmSusanne., R.Ph. * Ene Barnett, R.R.T., L.R.T. - 10/18/2023 4:18 AM CDT Patient started Hyperinflation Therapy (HIT) algorithm on: 10/16 Patient is currently in phase 1 of the HIT assessment pathway. Next Respiratory Mechanics due: 0938 Plan of Care: Continue through hit protocol. Rib Fracture After Trauma Assessment : Yes Max Inspiratory Pressure: -60 cm H2O Predicted Vital Capacity: 2.45 Liters Vital Capacity: 1.26 Liters Patient Position: Semi-recumbent Patient Effort : Fair Pain Score: 0 - No pain First 24 Hour Rib Fx Measurements Initial: VC: 1.31 NIF: -60 6 Hour: VC: 1.26 NIF: -60 12 Hour: 18 Hour: RT will continue patient on HIT pathway until patient is able to achieve predicted VC >= 50% and NIF <= -30 five times in phase 1. OR RT will continue patient on HIT pathway until patient is able to achieve predicted VC >= 50% and NIF <= -30 once, 24 hours after HIT order is discontinued in phase 3. Ene Barnett R.R.T., L.R.T. 10/18/23 4:18 AM CDT * Ene Barnett R.R.T., L.R.T. - 10/18/2023 2:06 AM CDT Patient started Hyperinflation Therapy (HIT) algorithm on: 10/16 Patient is currently in phase 1 of the HIT assessment pathway. Next Respiratory Mechanics due: 0338 on 10/17 Plan of Care: continue through hit protocol. Rib Fracture After Trauma Assessment : Yes Max Inspiratory Pressure: -60 cm H2O Predicted Vital Capacity: 2.45 Liters Vital Capacity: 1.31 Liters Patient Position: Semi-recumbent Pain Score: 0 - No pain First 24 Hour Rib Fx Measurements Initial: VC: 1.31 NIF: -60 6 Hour: 12 Hour: 18 Hour: RT will continue patient on HIT pathway until patient is able to achieve predicted VC >= 50% and NIF <= -30 five times in phase 1. OR RT will continue patient on HIT pathway until patient is able to achieve predicted VC >= 50% and NIF <= -30 once, 24 hours after HIT order is discontinued in phase 3. Ene Barnett [employer] [place] 10/18/23 2:06 AM CDT * Katherine Higginbotham Pharm.D., R.Ph., [facility] - 10/17/2023 3:51 PM CDT Warfarin Dosing Progress Note: Jeanine Montague is a 82 y.o. female who was admitted to the hospital on 10/17/2023. Hospital Pharmacy has been consulted for inpatient warfarin management and monitoring. Warfarin Indication: LV Thrombus Type of therapy: Continuation Prior average daily dose: 2.7 Comorbidities: Heart failure diagnosis (stable/compensated) Are any of these comorbidities new with admission? No Are there any new medication interactions with admission? No Target INR: 2 - 3 Day of therapy: 1 Home regimen per anticoag visit on 10/14: 2 mg Sun and Wed, 3 mg all other days Drug interactions include the following: Strong Potentiator (From admission, onward) None Moderate Potentiators (From admission, onward) Start Dose/Rate Route Frequency Ordered Stop 10/17/23 1700 acetaminophen tablet 650 mg (TylenoL) 650 mg oral 4 times daily 10/17/23 1537 Potentiating (From admission, onward) Start Dose/Rate Route Frequency Ordered Stop 10/17/23 1700 acetaminophen tablet 650 mg (TylenoL) 650 mg oral 4 times daily 10/17/23 1537 Enzyme Inducers (From admission, onward) Start Dose/Rate Route Frequency Ordered Stop 10/17/23 2100 traZODone tablet 50 mg (DesyreL) 50 mg oral Daily at bedtime 10/17/23 1537 Binders (From admission, onward) None Vitamin K-Containing Medications (168h ago, onward) None Antiplatelets & Anticoagulants (168h ago, onward) Start Dose/Rate Route Frequency Ordered Stop 10/18/[address] tablet 81 mg 81 mg oral Daily 10/17/23 1537 10/17/23 1700 warfarin tablet 3 mg (Jantoven) 3 mg oral Once 10/17/23 1551 10/17/23 2345 10/17/23 1600 warfarin management (Jantoven) oral Daily 10/17/23 1537 INR reversal agents were not given. Warfarin Reversal Agent Administrations (last 168 hours) Vitamin K and K-Centra None FFP Administrations During Encounter (Filter): EAP GENERAL TRANSFUSE FFP Medications Shown None Warfarin Administrations (last 168 hours) None INR (no units) Date Value Status 10/17/2023 2.1 Final INR Reflex, POCT, B (no units) Date Value Status 10/15/2023 2.1 Final A/P: Warfarin order of 3 mg has been placed for today and the pharmacist team will continue to follow patient's clinical progress daily until discharge from the hospital. Shannon Higginbotham PharmD, BCCCP, BCPS Pager: [phone] documented in this encounter H&P Notes * Aurora Bernal M.D. - 10/18/2023 11:00 AM CDT SUBJECTIVE CHIEF COMPLAINT Left iliac wing fracture and right rib fractures resulting from tripping and falling at home. HISTORY OF PRESENT ILLNESS Jeanine Montague is an 82 year old woman who was admitted to [facility] through ED with left iliac crest fracture that resulted from tripping and falling at home. Medical history of CAD, dilated cardiomyopathy, CHF, depression, DM2, obesity, VIOLET, hypertension with CKD 2, asthma and chronic diarrhea. She tripped at home and fell to the ground hitting her left leg/hip. She presented to the ED by [facility]. Had trauma series imaging identifying mildly left iliac wing fracture and right rib fractures. Ortho trauma consulted stating iliac fracture can be managed conservatively and weight bearing as tolerated. She was unable to bear weight so was admitted to the family medicine service for further evaluation/management. Today when seen she reports pain is controlled and she was up with help of PT to the bathroom and back. [place] she should not return to her home where she lives alone but has talked with her children and is establishing some plans for staying at her daughter's home. Daughter has steps to gain entrance then everything is single level. Adult son lives not far from daughter's home and apparently willing to help. She has not tried to navigate stairs with PT or nursing. She is without other complaints. The following portions of the patient's history were reviewed and updated as appropriate: allergies, current medications, family history, medical history, social history, surgical history, and problem list. REVIEW OF SYSTEMS Per hpi OBJECTIVE VITAL SIGNS Height: 157.5 cm, Weight: 92.5 kg, BMI (Calculated): 37.3 kg/m??, Blood Pressure: 131/62, Pulse Rate: 87, Resp Rate: 16, Temperature: 36.6 ??C, SpO2: 94 % PHYSICAL EXAM Gen: Well appearing elderly adult woman lying semirecumbent in bed in no distress HEENT: Mucus membranes moist Neck: supple Lungs: clear CV: regular without murmur Abd: soft, nontender, bowel sounds present Extremities: No edema. DIAGNOSTICS I have reviewed the labs, ECG, xray, and diagnostics from admission and selective review of EMR dating back to time available . ASSESSMENT / PLAN #1 History Of Falling #2 Fracture Ilium Avulsion Displaced Closed Initial Left (HCC) #3 Fracture Rib Multiple Closed Initial Right #4 Cardiomyopathy Dilated (HCC) #5 Chronic Systolic (Congestive) Heart Failure (HCC) #6 Diabetes Mellitus Type 2 (HCC) #7 Acute On Chronic Systolic (Congestive) Heart Failure (HCC) #8 Congestive Heart Failure Ejection Fraction Less Than 35 Percent And [place] Heart Association Class 2-3 (HCC) #9 Obstructive Sleep Apnea Adult #10 Obesity Body Mass Index 30-39.9 Adult #11 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 Kidney Disease Or Unspecified Chronic Kidney Disease (HCC) Continue pain management. Seems controlled with tylenol. Continue PT/OT mobilization. Appreciate help from discharge planning. Patient is not comfortable returning home where she lives alone but has had dialogue with her children and they are formulating plan for her to return to live/stay with her daughter until she has healed. Appreciate help from discharge planning in developing safe plan. Likely discharging to her daughters with home health. She needs to demonstrate ability to do stairs before discharge. Not ready for discharge today. This is a supervisory note for the [facility]. I saw and evaluated the patient, performed a history and physical exam, and discussed the management with the resident(s)/MACHINE LACER-Lali. I reviewed and agree with the admission note of Annabelle Wright APRN WATER [employer]AXI FERRY OPERATOR please see that note for details. I discussed plan of care with the patient who is in agreement. * Annabelle Wright APRN, C.N.P. - 10/17/2023 1:19 PM CDT T [facility] Admission Note SUBJECTIVE CHIEF COMPLAINT / REASON FOR VISIT Left hip fracture HISTORY OF PRESENT ILLNESS Mrs. Jeanine Montague is a 82 y.o. female who presents with left hip fracture following a fall. Shehas medical comorbidities of coronary artery disease, dilated cardiomyopathy, CHF, depression, type2 diabetes, obesity, VIOLET, hypertension with CKD 2, asthma, chronic diarrhea. Jeanine was at home and tripped. She did not lose consciousness. She hit her left leg and hip. She presented to the [place] [facility]. In the ER she had a trauma CT scans which was significant for severe leukoaraiosis; chronic infarcts; acute right 5th rib fracture with possible 4-6 right rib fractures; mildly displaced left iliac wing fracture. Orthopedic surgery was consulted and indicated she could weight bear as tolerated and discharge home, however, she is unable to bear weight due to pain so she was admitted to the Family Medicine service. In her hospital room she was laying in bed with her daughter Kaitlin at her side. She reports the pain given in the ER worked well but has worn off and she would like additional pain medications. She has not been able to walk yet due to pain. It is written that this is the 3rd time she's fallen this week. She states this is not true and today is the only fall. She has not felt dizzy when walking. She has not felt ill. She denies difficulty with taking deep breaths. She forgot to apply powder under her pannus after her shower last night and has a significant yeast infection throughout. Meds, allergies, medical, surgical, social & family histories have been reviewed & updated as necessary. OBJECTIVE VITAL SIGNS Temperature: [36.5 ??C-36.8 ??C] 36.5 ??C Resp Rate: [17-18] 17 Blood Pressure: (125-156)/(54-76) 137/54 SpO2: [90 %-97 %] 97 % Height: [157.5 cm] 157.5 cm Weight: [92.5 kg] 92.5 kg BSA (Calculated - sq m): [2.01 sq meters] 2.01 sq meters BMI (Calculated): [37.3 kg/m??] 37.3 kg/m?? Pulse Rate: [72-85] 78 PHYSICAL EXAMINATION General: No acute distress. Mental: Alert and oriented x 3. Responds appropriately to questions. Psych: Mood and affect appear appropriate. Eyes: PERRLA. Extra ocular motion intact. ENT: Oral mucosa pink and moist. No JVD noted. Heart: Regular rhythm and rate; no gallops, murmurs, clicks or rubs. Lungs: Clear to auscultation bilaterally; no wheezes, rhonchi or rales. Respirations even and non-labored on room air. Abdomen: Soft, nontender, nondistended. Active bowel sounds x 4 quadrants. Extremities: No pedal edema noted. Skin: Warm and dry, well perfused. There is a left knee area of ecchymosis. There is also a yeast infection under her pannus DIAGNOSTICS I have independently reviewed the labs, ECG, xray, and CT from the last 3 months ASSESSMENT / PLAN # History Of Falling # Mildly displaced fractures of the superior left iliac wing with approximately 1 cm of lateral displacement # acute right 5th rib fracture with possible fractures of 4 and 6 Orthopedic surgery recommends she can weight bear as tolerate. Surgery is not indicated. -respiratory therapy to perform rib fracture protocol. -schedule Tylenol, PRN oxycodone -consult PMR # coronary artery disease # dilated cardiomyopathy # CHF # hypertension with CKD 2 (baseline creatinine 0.9) # intracardiac thrombus -continue home aspirin, furosemide, rosuvastatin, metoprolol, valsartan # depression -continue home bupropion # type 2 diabetes # obesity # VIOLET -hold home metformin -utilize moderate intensity aspart correction scale # chronic diarrhea -continue home imodium, budesonide # asthma -continue home PRN albuterol DIET: Adult Diet Regular; 60 gm Carbs (per meal) TUBES/LINES: PIV VTE PROPHYLAXIS: continue warfarin, INR 2.1 CODE STATUS: DNR BASELINE MOBILITY: BMAT Level 4 (Able to stand and walk) DISPOSITION: Uncertain, pending PMR evaluation I personally spent a total of 55 minutes providing and coordinating care today. documented in this encounter Consult Notes * Tiesha Chapa O.T. - 10/19/2023 9:02 AM CDT Occupational Therapy [facility] Inpatient Evaluation/Treatment SUBJECTIVE Patient's Name: Jeanine Montague Referring/Attending Provider: Aurora Bernal M.D. 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 Jeanine Montague has a past surgical history that includes Breast fibroadenoma surgery (N/A, 03/12/1988); Mastectomy, radical (N/A, 03/04/2001); Stabilization Rib - Single - Level (N/A, 02/16/2012); and Anterior compartment decompression (N/A, 02/10/2012). History of Present Illness: Jeanine Montague is a 82 y.o. female who was admitted to [facility] in [place] on 10/17/2023 for History Of Falling [Z91.81]. Relevant Medical History: 82 year old Female admitted 10/17/23 with Left hip fracture after a fall. Precautions Weight Bearing Status: Weight bearing as tolerated bilateral lower extremities Other Precautions: Fall precautions, right 5th rib fracture RST PT/OT Falls screen: Fall in the last 12 months: Yes. Reports one other fall in addition to the fall resulting in current hospitalization - slid off the edge of her bed about a week ago. Did you have an injury with the fall: Yes Are you fearful of falling: Yes Home Living and Equipment: Lives with: Alone Type of Home: House Home Layout: One Level Home Access: Level entry Assistive Device Owned: Four wheeled walker, Single point cane, Quad cane Other DME Owned: Regular flat bed Home Living Comments: Patient did mention that she could stay with her daughter, who lives 45 [place], following discharge. Daughter has an apartment with 5-6 stairs to access (patient uncertain whether there are railings). Daughter works outside of the home though patient notes it is only a block away from her apartment. Prior Level of Function and Mobility: Functional Mobility: Modified Independent - uses single point cane and four wheeled walker. Which device she uses at any given time just depends on how she is feeling at that time. Basic Activities of Daily Living: Independent Instrumental Activities of Daily Living: Independent Driving: Yes Patient/Caregiver Goals: Decrease pain Discharge home OBJECTIVE Vital Signs: Vitals monitored throughout session; within normal ranges. Evaluation Assessment: Strength: Generalized weakness Range of Motion: Upper extremities within functional limits. Lower extremities within functional limits, though motion is guarded throughout the left lower extremity due to pain. Balance: Static Sitting: Good (Maintains balance without support) Dynamic Sitting: Good (Maintains balance without support) Static Standing: Fair (Maintains balance with handheld assist) Dynamic Standing: Fair (Maintains balance with handheld assist) Outcome Measures: [facility] Inpatient Short Form: Putting on and taking off regular lower body clothing?: A lot Putting on and taking off regular upper body clothing?: A Little Taking care of personal grooming such as brushing teeth?: A Little Bathing (including washing, rinsing, drying)?: A lot Toileting, which includes using toilet, bedpan, or urinal?: A lot Eating meals?: None Daily Activities Raw Score (max 24): 16 Daily Activities Standardized Score: 35.96 Interpretation: Based on scoring guidelines using the raw score value: Those going to home had an average score at or above 18 Those going to facility had an average score at or below 17 Clinicians answer the [facility] Inpatient Short Form based on observed patient activity and/or clinical judgment (ie. patient can be scored without physically performing each activity) Cognition: No observable concerns with cognition at this time Will further assess and monitor as warranted Therapeutic Interventions: ACTIVITIES OF DAILY LIVING: GROOMING - Assist Level: Minimal Assist - Patient Location: Standing at sink - Activity: Washing hands - Therapist Delivery: assessed, educated, assisted, facilitated - Assist/Cues: verbal and manual for technique, increased time, safety LOWER BODY DRESSING - Assist Level: Minimal Assist, Moderate Assist - Patient Location: Edge of bed, Standing - LB Dressing Item: incontinent brief - Therapist Delivery: assessed, educated, assisted, facilitated - Assist/Cues: verbal, visual, and manual for technique, guided practice, don/doff steps, ortho precautions - Minimal assistance sit doff soiled brief. Required moderate assistance for threading new brief. TOILETING - Assist Level: Minimal Assist - Patient Location: Toilet - Activity: clothing management, pericare - Therapist Delivery: assessed, educated, assisted, facilitated - Assist/Cues: verbal, visual, and manual for technique, sequencing, proper hand placement BED MOBILITY: SUPINE to SIT - Assist Level: Moderate Assist - Device: use of bed rail, head of bed elevated - Therapist Delivery: assessed, instructed, educated, assisted, facilitated - Assist/Cues: verbal, tactile, and visual for log roll technique, proper hand placement, proper leg placement, lower extremity support FUNCTIONAL TRANSFERS: SIT<>STAND - Assist Level: Minimal Assist - Equipment: front wheeled walker and gait belt - Surface: Bed, Chair - Therapist Delivery: assessed, educated, assisted, facilitated - Assist/Cues: verbal, visual, and manual for technique, sequencing, proper hand placement, eccentric control TRANSFER - Assist Level: Minimal Assist - Equipment: front wheeled walker and gait belt - Approach: To and From - Surface: Chair, Toilet - Therapist Delivery: assessed, educated, assisted, facilitated - Assist/Cues: verbal, visual, and manual for technique, sequencing, proper hand placement, proper leg placement FUNCTIONAL MOBILITY: In-room mobility performed with minimal assistance and front wheeled walker and gait belt Education/Training Provided: Provided education on role of occupational therapy in the acute setting. Collaborated with patient and/or family on goals and plan of care. Functional Transfers: - Provided instruction and cues during functional sit to/from stand transfers, including body alignment to surface, appropriate hand placement, and optimal placement of extremities to optimize safetyand technique. LB Dressing: - Patient instructed on dressing compensatory strategies and aids to assist with don/doff process. Emphasized don/doff strategies including donning clothing over surgical extremity/impaired extremityfirst and doffing over it last. Recommended adaptive equipment: Data Entry Machine Operator, Sock Aid, and Long HandledShoe Horn. Toileting - Patient instructed on accurate positioning and modifications for toileting skills with hygiene care and clothing management. Education and recommendations provided on options including toilet hygiene aid and/or toilet seat modifications. Bed Mobility: - Patient instructed on compensatory strategies to improve transfer in/out of bed. Recommendations provided with adaptations for correct sequencing, technique, and modification tools as needed including leg maintenance specialist and/or bed adjustments. Bathroom DME: - Educated patient/caregiver regarding recommended use of bathroom safety equipment to optimize safety during bathing and toileting. Recommended DME: tub transfer bench, grab bars, anti-slip strips, hand held shower hose, long-handled sponge Home Safety/Fall Prevention: - Educated patient/caregiver regarding home safety and fall prevention strategies to promote safetyand independence including use of recommended assistive device, wearing non-slip footwear, ensuringclear pathways, removing throw rugs, and good lighting throughout the home. Home Exercise Program: - Patient and/or family provided education on home exercise program and how to safely implement into daily routine to increase strength and range of motion. Patient was left in bedside chair at end of session with call light in reach, all needs met and questions answered. Assessment Discharge Therapy Needs - OT: Ongoing skilled occupational therapy If skilled therapy is recommended, skilled therapy can include occupational therapy provided in home health, outpatient or post-acute facility. The location of these services is determined by patient's care team in partnership with patient/family. Barriers to Discharge Home: Current functional status, Fall risk, Limited caregiver availability Barriers to Discharge Comments: Lives alone. Could stay with daughter, however daughter works during the day and has 5-6 stairs to access her apartment. Recommended Adaptive Equipment - OT: Other (Comment) Level of Care Needed - OT: Assistance with toileting, Assistance with toilet/shower transfers, Assistance with showering/bathing, Assistance with dressing, Assistance with transportation, Assistance with shopping, Assistance with housekeeping Clinical Impression: Currently, patient presents with impairments including pain, decreased strength, debility, impairedbalance, decreased activity tolerance, and safety concerns resulting in functional deficits including impaired functional mobility and decreased independence with self care tasks. Mrs Jeanine Montague is a 86 year old female admitted following a fall found to have left hip fracture. Grossly required minimal assistance for functional mobility with front wheeled walker. Facilitated lower body dressing with education provided on donning doffing right leg first. Tolerated functional ambulation into bathroom to perform toileting and self cares with minimal assistance. Reviewed bathroom adaptive equipment to increase independence and reduce caregiver reliance. The patient will benefit from ongoing occupational therapy services while hospitalized in order to improve engagement and independence in meaningful occupations. Plan OT Plan Comments: Next session: grooming/toileting in bathroom, lower body dressing with adaptive equipment if needed Functional Goals: OT Goal #1: Patient will perform toileting, including transfers, with modified independence to progress functional status. OT Goal #2: Patient will perform total body dressing, including clothing retrieval, with modified independence to progress functional status. OT Goal #3: Patient/family will demonstrate understanding of recommendations for homegoing equipment and activity modifications to optimize functional performance. Progress: Improving as expected Rehab potential: Ms. Montague has good potential to achieve established occupational therapy goals within the time frame outlined below. OT Frequency: OT Amount: 1 visit per day OT Frequency: 5 times per week OT Inpatient Duration : Until goals are met or hospital discharge Requires Inpatient OT Follow-Up: Yes OT - Next Inpatient Appointment: 10/20/23 Plan: Plan of care initiated Treatment interventions may include: Treatment Interventions: Therapeutic exercise, Therapeutic functional activity, Self-care/home management Occupational Therapy Attestation Statement: Patient agrees with the plan of care and goals. Billing: Tiered OT Evaluation Codes: Comorbid Conditions: Diabetes, Cardiopulmonary disease, Obesity Personal Factors: Age, Living situation, Needs assistive device Occupational Profile and History review: Expanded Performance Deficits: 3 - 5 performance deficits Evaluation Complexity: Moderate Time Spent with Patient Evaluations OT Eval - Mod Complexity: 8 min Therapeutic Interventions Home Management Training (min): 25 min Time Tracking Total Timed Units (min): 25 min Total Treatment Time (min): 33 min Tiesha Chapa O.T. * Imani Ariza ROsvaldoN. - 10/18/2023 9:22 AM CDTAssociated Order(s): IP CONSULT TO CARE MANAGEMENT Discharge Planning Assessment SUBJECTIVE Assessment Information Referral Source: Early Screen for Discharge Planning Referral Name: ESDP [id number] Referral Reason: Discharge Planning Primary Language: Citizen Of [place] Filling Machine Operator Services Used: No Person(s) present during interview: Person(s) Present During Interview: patient History of Present Illness #1 History Of Falling Social History Support System: children Primary Caregiver: self Finance/Insurance Primary insurance: MEDICARE A AND B Secondary insurance: [facility] iCare Intelligence benefits: No Advance Directives Legal Decision Maker: Self Advance Directives: N/A Advance Directives Status: N/A OBJECTIVE Baseline Functional Status Baseline Activities of Daily Living Mobility: Modified independent Dressing: Independent Feeding: Independent Bathing: Independent Grooming: Independent Toileting: Independent Behavior: Appropriate, Pleasant, Calm, Cooperative, Oriented Communication: Can write, Talks, Understands speaking, Understands Citizen Of [place], Reads Shopping: Independent Medication Management: Independent Housekeeping: Needs assistance Meal Prep: Independent Assistive Devices: Cane, Walker - front wheeled, Eyeglasses, Dentures, Hearing aid(s), Grab bars - wall Services/Resources: Housekeeping, Lawn care, Snow removal Transportation: Support from family Baseline Services/Resources Primary care clinic and provider: Mich Luevano D.O. Services/Resources: Housekeeping, Lawn care, Snow removal Additional Resources: N/A Anticipated Needs Functional Status: Housekeeping, Shopping, Transportation use (drive car, use taxi/bus), Transfer to/from bed, chair, etc., Mobility Assistive Devices: Walker - front wheeled, Eyeglasses, Dentures, Hearing aid(s) Services/Resources: Housekeeping, Lawn care, Snow removal Anticipated Modifications to the Patient's Home: None Transportation Needs: Support from family Does the patient need discharge transport arranged?: No Anticipated Discharge Destination: Home or Self Care ASSESSMENT / PLAN Assessment: The griddle attendant met with Jeanine Montague to discuss her current hospitalization and home going needs. The patient was unaccompanied. The patient was was a reliable historian. The role of griddle attendant was reviewed. The patient reviewed her prior level of care and support system. The patient receives support from her children. The patient described her living environment as a single level home with level entry. Housekeeping,grocery shopping, meal prep, and other household responsibilities have previously been completed bypatient. griddle attendant discussed the patient's potential needs at dismissal based on their home se tting, previous needs and responsibilities, homebound status, and relevant assessments with the patient. The patient will be safe and supported to return home with family when medically ready. Support will be provided by her daughter and son. The patient demonstrated understanding when discussing her home going plans and anticipated needs. Patient resides in her own home where she hires her nephew for lawn and [email or web address] services and also private hires housekeeping. Due to the fall with fracture, patient stated she will be discharging with her daughter until she is more independent. Daughter does have three-five steps to enter. Patient might be open to home health support but would like to discuss this with her daughter first. Patient stated that he son lives very close to her daughter and can assist as well. Her daughter works from home and will be available. Patient anticipates that her daughter will provide transportation at discharge. At this time, the care team anticipates the patient will potentially require the following new service(s) to be set up: home healthcare. After reviewing the patient's chart and meeting with the patient, the griddle attendant deemed the LACE+/readmission questions were not necessary. The patient reports understanding that she will dismiss from the hospital when medically stable. The following potential barriers to dismissal have been identified: DC Barriers: potential HHC Plan: The patient agrees with the following plan. Patient's anticipated discharge disposition is: Home to Self Care vs HHC Transportation upon dismissal will be provided by family--daughter . griddle attendant recommended discussing needed assistance with family, friends, or neighbors . griddle attendant provided information regarding the dismissal process and the Senior Linkage Line ([place] Board on Aging) handout. griddle attendant placed or requested the following hospital-based consult orders and/or referrals: PT/OT. griddle attendant will continue to assess for homegoing needs with the interdisciplinary team. griddle attendant encouraged the patient to reach out with any questions/concerns. Care Management will continue to follow. Patient to discharge home with home health care. Home Medical Care - Admitted Since 10/17/2023 Service Provider Selected Services Address Phone Fax Patient Preferred [facility] [address] [place] [address] [address], [facility] [phone] -- Vice President Of Brand Management: intake NURSING: - Complete documentation in the Discharge Navigator including Nursing Report Info and Facility/NextLevel of Care Info - Call report and arrange for the patient's first visit - Send After Visit Summary and required packet of dismissal information with patient, including advance directive. PRIMARY SERVICE: - Please provide a non-[place] home health order for: physical therapy and occupational therapy in theAfter Visit Summary. - Communicate with the patient's local primary care provider by telephone for writing of home care orders. This needs to be done to help prevent discharge delays. A copy of the After Visit Summary needs to be sent there as well. CASE MANAGEMENT: -Will continue to follow for ongoing discharge planning needs. Signed by: Imani Ariza R.N. 10/18/2023 * Wiliam Luis, P.TOsvaldo, D.P.T. - 10/18/2023 9:11 AM CDT Physical Therapy Inpatient Evaluation/Treatment SUBJECTIVE Patient's Name: Jeanine Montague Referring/Attending Provider: Aurora Bernal M.D. 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 Jeanine Montague has a past surgical history that includes Breast fibroadenoma surgery (N/A, 03/12/1988); Mastectomy, radical (N/A, 03/04/2001); Stabilization Rib - Single - Level (N/A, 02/16/2012); and Anterior compartment decompression (N/A, 02/10/2012). History of Present Illness: Jeanine Montague is a 82 y.o. female who was admitted to [facility] in [place] on 10/17/2023 for History Of Falling [Z91.81]. Precautions Weight Bearing Status: Weight bearing as tolerated bilateral lower extremities Other Precautions: Fall precautions, right 5th rib fracture RST PT/OT Falls screen: Fall in the last 12 months: Yes. Reports one other fall in addition to the fall resulting in current hospitalization - slid off the edge of her bed about a week ago. Did you have an injury with the fall: Yes Are you fearful of falling: Yes Home Living and Equipment: Lives with: Alone Type of Home: House Home Layout: One Level Home Access: Level entry Assistive Device Owned: Four wheeled walker, Single point cane, Quad cane Other DME Owned: Regular flat bed Home Living Comments: Patient did mention that she could stay with her daughter, who lives 45 [place], following discharge. Daughter has an apartment with 5-6 stairs to access (patient uncertain whether there are railings). Daughter works outside of the home though patient notes it is only a block away from her apartment. Prior Level of Function and Mobility: Functional Mobility: Modified Independent - uses single point cane and four wheeled walker. Which device she uses at any given time just depends on how she is feeling at that time. Basic Activities of Daily Living: Independent Instrumental Activities of Daily Living: Independent Driving: Yes Pain Assessment: Patient rated pain 0/10 at rest, 5/10 to the left hip during transfer to chair. She stated that pain improved again once she was seated in the chair. Session had been coordinated with nursing such that patient had received pain medication in advance of mobility. Patient/Caregiver Goals: Return to home Subjective Comments: Patient agreed to session. OBJECTIVE Vital Signs: Pre-Activity: Blood Pressure: 139/60 (80) mmHg Post Activity: Blood Pressure: 121/66 (81) mmHg Evaluation Assessments: Strength: Generalized weakness Range of Motion: Upper extremities within functional limits. Lower extremities within functional limits, though motion is guarded throughout the left lower extremity due to pain. Balance: Static Sitting: Good (Maintains balance without support) Dynamic Sitting: Good (Maintains balance without support) Static Standing: Fair (Maintains balance with handheld assist) Dynamic Standing: Fair (Maintains balance with handheld assist) Outcome Measures: -[facility] Inpatient Short Form: AM-[facility] Basic Mobility (V.2) How much help from another person do you currently need???If the patient hasn't done an activity recently, how much help from another person do you think he/she would needif he/she tried? 1. Turning from your back to your side while in a flat bed without using bedrails?: A Little 2. Moving from lying on your back to sitting on the side of a flat bed without using bedrails?: A Lot 3. Moving to and from a bed to a chair (including a wheelchair)?: A Little 4. Standing up from a chair using your arms (e.g., wheelchair, or bedside chair)?: A Little 5. To walk in hospital room?: A Little 6. Climbing 3-5 steps with a railing?: A Lot AM-[facility] Basic Mobility (V.2) Raw Score: 16 AM-[facility] Basic Mobility (V.2) Standardized Score: 38.32 Interpretation: Based on scoring guidelines using the raw score value: Those going to home had an average score at or above 18 Those going to facility had an average score at or below 17 Clinicians answer the -[facility] Inpatient Short Form based on observed patient activity and/or clinical judgment (ie. patient can be scored without physically performing each activity) Therapeutic Interventions: SUPINE TO SIT: Assistance Level: Minimal Assistance of 1 Device: head of bed elevated and bedrail Assistance/Cueing: Step by step verbal cues for sequencing. Assistance needed to support and assistthe left lower extremity. SIT TO STAND: Assistance Level: Minimal Assistance of 1 Device: gait belt and front wheeled walker Surface: Bed Assistance/Cueing: verbal for Anterior weight shifting, Sequencing, Technique, and Upper extremity placement STAND TO SIT: Assistance Level: Minimal Assistance of 1 Device: gait belt and front wheeled walker Surface: Chair Assistance/Cueing: verbal for Alignment with seated surface, Eccentric control, Upper extremity placement, and Walker placement TRANSFER: Surface:Bed to Chair Assistance Level: Minimal Assistance of 1 Device: gait belt and front wheeled walker Assistance/Cueing: Step by step verbal cues for sequencing, with emphasis on placing weight throughupper extremities into walker during single limb support on the left to help with offloading and pain control. Pivot steps were antalgic, but patient stated that the transfer went better than she hadanticipated. THERAPEUTIC EXERCISE: Supine Therapeutic Exercise: Side: bilateral, lower extremity(ies) Mode: active range of motion Exercises:Ankle pumps Assist/cueing: Encouraged patient to complete frequently to help with DVT prevention The patient's status was discussed and the following coordination of care occurred with the RN, OT,and Primary Service Family/Caregiver Present: No Patient was left in bedside chair with chair alarm on at end of session with call light in reach, all needs met and questions answered. Assessment Discharge Therapy Needs - PT: Ongoing skilled physical therapy If skilled therapy is recommended, skilled therapy can include physical therapy provided by home health, outpatient clinic, or a post-acute facility. The location of these services is determined by the patient's care team in partnership with patient/family. Level of Care Needed - PT: Assistance with bed mobility, Assistance with transfers, Assistance withwalking and moving around the home, Assistance with stairs Equipment Recommended - PT: Front-wheeled walker Barriers to Discharge Home: Current functional status, Fall risk, Limited caregiver availability Barriers to Discharge Comments: Lives alone. Could stay with daughter, however daughter works during the day and has 5-6 stairs to access her apartment. Clinical Impression: Patient is an 82 year old female admitted with a left iliac wing fracture and right 5th rib fracture following a fall at home. During my assessment this morning she was able to mobilize to the edge of the bed, stand, and take several pivot steps to transfer to the bedside chair all with minimal assistance using a walker. She tolerated the transfer fairly well, reporting 5/10 left hip pain but overall feeling that the transfer went better than she had anticipated. Her breakfast had arrived at that time, so we did not progress further with activity. She presents well below her functional baseline and will benefit from ongoing rehabilitation efforts to further optimize her functional status. PT will continue to follow while she is here in the hospital. Plan PT Plan Comments: Progress bed mobility with less reliance on hospital bed features. Progress transfer training and initiate gait as appropriate. Functional Goals: PT Inpatient Goals PT Goal #1: Patient will complete supine to/from sitting transitions independently without hospitalbed features while maintaining activity precautions to demonstrate return to functional baseline PT Goal #2: Patient will complete sit to/from stand transitions with modified independence using least restrictive assistive device while maintaining activity precautions to demonstrate progression toward functional baseline PT Goal #3: Patient will ambulate 35 m with modified independence using least restrictive assistivedevice while maintaining activity precautions to demonstrate progression toward functional baselineand enable safe household distance ambulation PT Goal #4: Patient will negotiate 6 stairs with supervision using least restrictive assistive device while maintaining activity precautions to enable her to safely access her daughter's apartment with supervision from family Jeanine Montague has Good rehab potential to meet the expected outcomes in a reasonable period of time. Treatment Plan: Plan: Plan of care initiated PT Frequency: 5 times per week PT Inpatient Duration : Until goals are met or hospital discharge Requires Inpatient Follow-Up: Yes PT - Next Inpatient Appointment: 10/19/23 Patient agrees with the plan of care and goals. Treatment interventions may include: Treatment/Interventions: Therapeutic exercise, Therapeutic functional activity, Neuromuscular re-education, Gait training, Self-care/home management Tiered PT Evaluation Codes: Comorbid Conditions: Diabetes, Cardiopulmonary disease, Obesity Personal Factors: Age, Living situation, Needs assistive device Examination elements: 4+ Clinical Presentation: Evolving Clinical Decision Making: Moderate complexity clinical decision making Billing: Time Spent with Patient Evaluations PT Eval - Mod Complexity: 15 min Therapeutic Interventions Therapeutic Activity (min): 19 min Time Tracking Total Timed Units (min): 19 min Total Treatment Time (min): 34 min Wiliam Luis P.T., D.POsvaldoT. * Fabián Kenney M.D. - 10/17/2023 8:11 AM CDTAssociated Order(s): Orthopedic Surgery consult ([facility]) ORTHOPEDIC SURGERY CONSULT NOTE Today's date: 10/17/2023 Referring Provider - Orthopedic Surgery consult ([facility]) Referring Provider: Mike Patricia M.D. No ref. provider found Primary Team - [facility] C04 -- Jeanine Montague ([phone]) 82 y.o.female Contact: (home) Telephone Information: Occupation: Retired Code Status: Prior Reason for Consult -or- Chief Complaint Left iliac wing fracture SUBJECTIVE History of Present Illness: Ms. Jeanine Montague is a 82 y.o. female with a past medical history significant for CAD s/p stent, dilated cardiomyopathy and CHF, intracardiac thrombus on warfarin, VIOLET, type 2 diabetes mellitus, and history of falling who sustained a fall early this morning when she got up to use the restroom and suffered a left iliac wing fracture. The Orthopedic Trauma Surgery Service was consulted for evaluation and recommendations on management. The patient reports that she was getting up early this morning to use the restroom and when she waswalking back she tripped over her own feet. She did not strike her head nor lose consciousness. She states she did not injure any other aspect of her body. She reports that her pain is in the left side of her pelvis. She denies any numbness or tingling in the left lower extremity. Denies any recent systemic illness such as fevers, chills, body aches, cough, headache. Other Pertinent History: Prior injury to affected body part: None Prior surgery to affected body part: None Gait aids: Walker for longer distances, cane for shorter Antecedent pain: None Anticoagulant use: Warfarin History of Diabetes: Yes, DMII (A1c 9.9 05/06/23) Immunosuppression: None Tobacco: None Alcohol: Social. Past Medical and Surgical History Past Medical History: Diagnosis Date Anemia 06/23/2017 Asthma NOS Cancer Breast Personal History 04/13/2011 Cataract Senile Nuclear Sclerosis Bilateral 01/25/2004 Depressive Disorder Diabetes Mellitus Type 2 (HCC) Dislocation Elbow Closed Initial 03/30/2012 DM Retinopathy Background (LOAD DROPPER) 01/25/2004 Dystrophy Fuchs' Endothelial 01/25/2004 Failure Renal Acute (Acute Kidney Injury) (HCC) 10/23/2020 Heart Failure NOS Hyperkalemia 10/23/2020 Hyperlipidemia Hypertension NOS Hyponatremia 10/24/2020 Hypoxia Sleep Related 01/10/2015 Mastectomy Status Post Left 04/13/2011 Secondary Malignant Neoplasm Lymph Node (HCC) 01/25/2004 Spondylosis Lumbar Without Myelopathy 10/08/2011 Vertigo Benign Positional 08/04/2012 Past Surgical History: Procedure Laterality Date ANTERIOR COMPARTMENT DECOMPRESSION N/A 02/10/2012 >1. Anterior compartment fasciotomy (Dictated by Dr. Stewart). BREAST FIBROADENOMA SURGERY N/A 03/12/1988 Excision of fibroadenoma, right breast. MASTECTOMY, RADICAL N/A 03/04/2001 >Left modified radical mastectomy. [place] lymph node biopsy with isotope and dye. STABILIZATION RIB - SINGLE - LEVEL N/A 02/16/2012 >Left eighth rib fracture stabilization, posterior aspect (Dictated by Dr. Flood). Social History Social History Socioeconomic History Marital status: Highest education level: Some college, no degree Tobacco Use Smoking status: Never Passive exposure: Never Smokeless tobacco: Never Vaping Use Vaping status: never used Substance and Sexual Activity Alcohol use: Yes Alcohol/week: 1.0 standard drink of alcohol Types: 1 Standard drinks or equivalent per week Drug use: No Sexual activity: Not Currently control/protection: Post-menopausal, Tubal ligation (tubes tied) Social Determinants of Health Food Insecurity: No Food Insecurity (06/15/2022) Hunger Vital Sign Worried About Running Out of Food in the Last Year: Never true Ran Out of Food in the Last Year: Never true Transportation Needs: No Transportation Needs (06/15/2022) PRAPARE - Transportation Lack of Transportation (Medical): No Lack of Transportation (Non-Medical): No Physical Activity: Insufficiently Active (06/15/2022) Exercise Vital Sign Days of Exercise per Week: 2 days Minutes of Exercise per Session: 20 min Intimate Partner Violence: Not At Risk (06/15/2022) Humiliation, Afraid, Rape, and Kick questionnaire Fear of Current or Ex-Partner: No Emotionally Abused: No Physically Abused: No Sexually Abused: No Housing Stability: Unknown (06/15/2022) Housing Stability Vital Sign Unable to Pay for Housing in the Last Year: No Unstable Housing in the Last Year: No Medications No current facility-administered medications on file prior to encounter. Current Outpatient Medications on File Prior to Encounter Medication Sig Dispense Refill acetaminophen (TYLENOL) 325 mg tablet Take 650 mg by mouth every 4 (four) hours as needed. albuterol (Ventolin HFA) 90 mcg/actuation inhaler Inhale 2 puffs every 6 (six) hours as needed for wheezing. 54 g [address] tablet Take 81 mg by mouth daily. budesonide (Entocort EC) 3 mg 24 hr capsule Take 2 capsules (6 mg total) by mouth daily. 60 capsule1 buPROPion XL (Wellbutrin XL) 150 mg 24 hr tablet Take 3 tablets (450 mg total) by mouth every morning. 270 tablet 3 furosemide (LASIX) 40 mg tablet Take 1 tablet (40 mg total) by mouth daily. 90 tablet 3 loperamide (IMODIUM A-D) 2 mg capsule metFORMIN XR (GLUCOPHAGE-XR) 500 mg 24 hr tablet take two tablets by mouth twice a day 360 tablet 3 metoprolol succinate (TOPROL-XL) 25 mg 24 hr tablet Take 1 tablet (25 mg total) by mouth daily. Do not crush or chew. 90 tablet 3 nitroglycerin (NITROSTAT) 0.[address] 1 tablet (0.4 mg total) under the tongue every 5 (five) minutes as needed for chest pain Indications: angina, a type of chest pain. 25 tablet 11 rosuvastatin (CRESTOR) 20 mg tablet Take 1 tablet (20 mg total) by mouth daily. 90 tablet 3 traZODone (DESYREL) 50 mg tablet Take 1 tablet (50 mg total) by mouth at bedtime as needed for sleep. 90 tablet 3 valsartan (DIOVAN) 40 mg tablet TAKE 1/2 TABLET BY MOUTH 2 TIMES A DAY 90 tablet 1 warfarin (Jantoven) 2 mg tablet Please take as directed by your Anticoagulation Clinic. 112 tablet 3 OBJECTIVE Vitals BP 156/71 (BP Location: Right arm;Upper) Pulse 78 Temp 36.8 ??C (Oral) Resp 18 SpO2 94% Physical Exam: Effort: Cooperative with exam. Good effort. General: Awake, alert, no acute distress. Heart: Regular Rate. Extremities generally warm and well-perfused. Lungs: Non labored breathing, equal chest rise. MUSCULOSKELETAL: LEFT Lower Extremity: Overall appearance: Skin free of skin tears, cuts or abrasions. Clean, dry, intact. No deformity appreciated. Compartments are soft. Calves soft and non-tender. Palpation: TTP about the left iliac wing. No tenderness to palpation about the anterior groin, greater trochanter, or along the femoral shaft. ROM / Stability: When the hip is ranged, the patient elicits pain near the iliac wing. Full range of motion about the knee, and ankle. No significant pain with log roll of the hip Sensation: SILT at L2 - S1 dermatomes and Superficial and deep peroneal, sural, saphenous, tibial distributions. Motor: Fires quadriceps, hamstrings, tibialis anterior, gastroc soleus complex, EHL, FHL. Patient declines firing iliopsoas due to pain. Circulation: No cyanosis noted. Palpable dorsalis pedis and posterior tibial artery pulses. Good capillary refill. Right Lower extremity: Right lower extremity is without skin cuts, abrasions, or tears. There were no appreciable areas ofswelling or ecchymosis. Palpation of the hip including the ASIS, anterior groin, greater trochanterare nontender to palpation. Palpation of the femoral shaft and bony prominences of the knee are nontender. There was no pain with range motion of the hip, knee, or ankle. Fires iliopsoas, quadriceps, hamstring, tib ant, gastroc soleus complex, EHL, FHL. The extremity appears warm and well-perfused.Palpable dorsalis pedis pulse. BILATERAL Upper Extremity: Overall appearance: Skin free of skin tears, clean, dry, intact. No deformity appreciated. Palpation: No tenderness to gross palpation of the bilateral upper extremities. ROM / Stability: Baseline range of motion about the bilateral shoulders, elbows, wrists. Able to make composite fists bilaterally. Range of motion is nonpainful. Sensation: SILT Radial, Median, Ulnar distributions. Motor: 5/5 AIN, PIN, recurrent ulnar motors Circulation: Palpable radial, ulnar pulse. Fingers warm, well-perfused. DIAGNOSTICS Labs: Recent Labs 10/17/23 0641 WBC 10.1 H HGB 10.7 L HCT 32.5 L MCV 92.3 PLT 265 Recent Labs 10/17/23 0641 NA 138 CL 101 CREATININE 0.95 BUN 13 GLUCOSE 187 H Recent Labs 10/17/23 0641 10/15/23 1059 INR 2.1 2.1 PT 23.5 H -- No results for input(s): SEDRATE, CRP in the last 48 hours. Imaging: CT Cervical Spine without IV Contrast Result Date: 10/17/2023 Impression: Negative for acute traumatic finding the cervical spine. Advanced spondylotic changes as described. CT Head without IV Contrast Result Date: 10/17/2023 Impression: 1. Negative for acute traumatic intracranial finding. 2. Severe leukoaraiosis. Focal hypoattenuation and turk-white differentiation loss about the right frontal, parietal, and occipital lobes indeterminate for subacute/chronic infarct. MRI may be considered if clinically indicated. 3. Sm all indeterminate right parotid nodule. Consider dedicated nonemergent ultrasound DX Chest AP or PA and Lateral 2 Views Result Date: 10/17/2023 Impression: Acute appearing mildly displaced posterior/lateral right fifth rib fracture new since 09/05/2020. Possible additional minimally displaced posterior right fourth-sixth rib fractures. Cardiomegaly not appreciably changed since 09/05/2020. Normal-appearing pulmonary vascularity. Lungs clear.No pleural effusions or pneumothorax. Tortuous calcified aorta. Stable hardware fixation of a healed posterior left eighth rib fracture. Diffuse hypertrophic changes thoracic spine. Moderate degenerative changes both shoulders. DX Hip And Pelvis Left 2-3 Views Result Date: 10/17/2023 Impression: Moderate laterally displaced fracture through the lateral aspect of the superior left iliac wing. No other acute displaced fractures of the pelvis appreciated. Diffuse advanced age-related hypertrophic skeletal degenerative changes throughout the visualized lower lumbar spine and pelvis. Vascular calcifications. ASSESSMENT / PLAN #1 Left iliac wing fracture Other Diagnoses: Ms. Jeanine Montague is a 82 y.o. female who presented to the [facility] Emergency Department after a ground level fall. Evaluation in the emergency department demonstrated a left iliacwing fracture with lateral displacement. This was characterized on radiographs and a subsequent CT scan. Orthopedic surgery team was consulted for evaluation and management. Fortunately, the patient was neurovascularly intact at this time and the fracture is a relatively small aspect of the iliac wing. Unfortunately, the patient is quite painful at this time. We reviewedthe etiology of her pain with the use of her radiographs as a demonstrated tool. We discussed that this can be a painful injury due to the attachment sites of both the gluteal muscles and abdominal wall musculature. We discussed that despite this pain it is in a nonweightbearing aspect of the pelvic girdle and that she may progress to weight-bearing as tolerated. We discussed that there is no role for emergent orthopedic surgery intervention at this time. We donot anticipate that she will require operative intervention for management of this injury. However,we did discuss that in the unlikely event that she has prolonged pain and migration of the fracturefragment there could be a possible although unlikely role for intervention in the distant future. We recommended to the emergency department that she have a trial of ambulation with the use of a walker to assess her ability for discharge home. Remainder of cares per emergency department. All of the patient and her family's questions were answered, they expressed understanding, and theyare in agreeance with the plan. Fabián Kenney MD Orthopedic Surgery Resident Please contact OTS-[facility] ([facility]) at [phone] with any questions or concerns regarding this patient. If outside of 06:00 - 18:00 on weekdays or any time on the weekend, please contact the [facility] Orthopedic Surgery house resident application integration engineer at [phone] Cosigned by Emery Machado M.D. at 10/17/2023 9:54 PM CDT Associated attestation - Emery Machado M.D. - 10/17/2023 9:54 PM CDT OTS CHIEF SUPERVISORY NOTE I have independently seen the patient and reviewed the chart. I agree with Dr. Kenney's assessment and plan as outlined except as below. Briefly, Jeanine Montague is a 82 y.o. female who had a fall after getting up from the toilet and sustained left-sided rib fractures in his displaced iliac wing fracture, for which Orthopedic surgery was consulted. She was neurologically intact, no posterior pelvic ring pain. No threatened skin. Assessment/Plan # Left iliac wing fracture, closed, uncomplicated I had a good discussion with Mrs. Montague about her injury. Thankfully, this does not involve the larger pelvic ring, does not involve the articular surface, and does not have any worrisome features. It is quite laterally displaced; I did discuss with her that occasionally patients who experienced this type of injury can have difficulty wearing pants or other things with a tight waist band dueto the pain. I discussed that the iliac crest as an attachment site for the oblique abdominal muscles which can be similar to her rib fractures in terms of pain with maintaining posture, breathing, and not intense tasks. She can be weight-bearing as tolerated in her bilateral lower extremities. I have no specific activity restrictions for her. Sometimes, patients can find it helpful to wear something like an abdominal binder to provide gentle compression to the core, but I have no specific brace or other device that I would recommend for her injury. For any questions or concerns regarding this patient Wednesday - Wednesday, 6am - 6pm, please page the [facility] service at [phone]. On nights and on weekends, please page [facility] at [phone]. For urgent/emergent issues, please page and do not use [facility]. Emery Machado MD Orthopedic Surgery, PGY-V documented in this encounter Nursing Notes * Deja Hassan, R.N. - 10/20/2023 12:23 PM CDT Shift Goals: Clinical Goals for the Shift: Adequate pain control. Identify possible barriers to meeting goals/advancing plan of care: None End of Shift Summary: Pt goal was met with lidocaine patch, voltaren gel, scheduled tylenol & Oxy 5mg given 1x this morning. Pt was up to chair for breakfast and tolerated that movement well [id number]. AVS and medication detail was discussed with patient and questions were answered. The ViRN called the facility and gave report. VS were taken and IV was removed. BP 130/59 (BP Location: Right arm;Upper, Patient Position: Lying) Pulse 73 Temp 36.4 ??C (Oral) Resp 18 Ht 157.5 cm Wt 93 kg SpO2 98% BMI 37.50 kg/m?? Problem: SAFETY ADULT Goal: Maintain a safe environment Outcome: Adequate for Discharge Problem: SAFETY ADULT - RISK FOR FALL AND OR FALL INJURY Goal: Patient remains free from fall/fall injury Outcome: Adequate for Discharge Problem: PAIN - ADULT Goal: PT VERBALIZES/DEMONSTRATES ADEQUATE COMFORT LEVEL OR BASELINE Outcome: Adequate for Discharge Problem: KNOWLEDGE DEFICIT Goal: Patient/family/caregiver demonstrates understanding of disease process, treatment plan, medications, and discharge instructions Outcome: Adequate for Discharge Problem: INFECTION - ADULT Goal: Absence of infection during hospitalization Outcome: Adequate for Discharge Problem: SKIN/TISSUE INTEGRITY Goal: Skin/Tissue integrity maintained or improved Outcome: Adequate for Discharge Goal: Oral and Nasal mucous membranes remain intact Outcome: Adequate for Discharge Problem: DISCHARGE PLANNING Goal: Patient discharge needs identified Outcome: Adequate for Discharge Problem: POTENTIAL OR ACTUAL PRESSURE INJURY-ADULT Goal: Manage sensory Perception deficits to maintain and/or improve skin integrity Outcome: Adequate for Discharge Goal: Maintain optimal skin moisture to ensure or improve skin integrity Outcome: Adequate for Discharge Goal: Achieve optimal activity and/or mobility to maintain or improve skin integrity Outcome: Adequate for Discharge Goal: Nutrient intake appropriate for improving, restoring or maintaining skin integrity Outcome: Adequate for Discharge Goal: Minimize friction and/or shear to maintain or improve skin integrity Outcome: Adequate for Discharge Problem: Compromised Skin Integrity Goal: Skin/Tissue integrity maintained or improved Outcome: Adequate for Discharge Goal: Oral and Nasal mucous membranes remain intact Outcome: Adequate for Discharge Goal: Incisions, wounds, or drain sites healing without S/S of infection Outcome: Adequate for Discharge Problem: Incontinence and/or Moisture Goal: Skin integrity is maintained or improved Outcome: Adequate for Discharge Electronically signed by: Deja Hassan R.N. 10/20/23 12:26 PM CDT * Marry Maurer R.N. - 10/19/2023 6:06 PM CDT Shift Goals: Clinical Goals for the Shift: Patient will be up in chair for all meals. Identify possible barriers to meeting goals/advancing plan of care: None End of Shift Summary: Shift [id number]: Goal met this shift. Pt up to chair for meals. VSS. Pt on room air. Pt complained of 5/10 left hip pain this morning. Pt received prn oxy x1 this shift, lidocaine patch and scheduled tylenol to help manage pain. Pt reported pain 3/10 remainder of day. Pt remained safe this shift. Pt up to chair and bathroom with staff. Alarms on. Pt using call light appropriately. Pt's daughter visited this evening. Plan is to continue to monitor pt. Problem: SAFETY ADULT Goal: Maintain a safe environment Outcome: Progressing Note: Pt remained safe this shift. Pt up to chair and bathroom with staff. Alarms on. Pt using calllight appropriately. Problem: PAIN - ADULT Goal: PT VERBALIZES/DEMONSTRATES ADEQUATE COMFORT LEVEL OR BASELINE Outcome: Progressing Note: Pt complained of 5/10 left hip pain this morning. Pt received prn oxy x1 this shift, lidocaine patch and scheduled tylenol to help manage pain. Pt reported pain 3/10 remainder of day. * Apolonia Lacey R.N. - 10/18/2023 5:57 AM CDT Shift Goals: Clinical Goals for the Shift: Patient will get adequate rest overnight. Identify possible barriers to meeting goals/advancing plan of care: None. End of Shift Summary: Patient goal met; got around 6 hours of sleep. Patient's pain was managed using scheduled Tylenol; no need to use any PRN medications. Purewick was utilized overnight. Patient was vitally stable and on room air throughout shift. Apolonia Shields R.N. Problem: SAFETY ADULT Goal: Maintain a safe environment Outcome: Progressing Problem: SAFETY ADULT - RISK FOR FALL AND OR FALL INJURY Goal: Patient remains free from fall/fall injury Outcome: Progressing Problem: PAIN - ADULT Goal: PT VERBALIZES/DEMONSTRATES ADEQUATE COMFORT LEVEL OR BASELINE Outcome: Progressing Problem: KNOWLEDGE DEFICIT Goal: Patient/family/caregiver demonstrates understanding of disease process, treatment plan, medications, and discharge instructions Outcome: Progressing Problem: INFECTION - ADULT Goal: Absence of infection during hospitalization Outcome: Progressing Problem: SKIN/TISSUE INTEGRITY Goal: Skin/Tissue integrity maintained or improved Outcome: Progressing Goal: Oral and Nasal mucous membranes remain intact Outcome: Progressing Problem: DISCHARGE PLANNING Goal: Patient discharge needs identified Outcome: Progressing Problem: POTENTIAL OR ACTUAL PRESSURE INJURY-ADULT Goal: Manage sensory Perception deficits to maintain and/or improve skin integrity Outcome: Progressing Goal: Maintain optimal skin moisture to ensure or improve skin integrity Outcome: Progressing Goal: Achieve optimal activity and/or mobility to maintain or improve skin integrity Outcome: Progressing Goal: Nutrient intake appropriate for improving, restoring or maintaining skin integrity Outcome: Progressing Goal: Minimize friction and/or shear to maintain or improve skin integrity Outcome: Progressing Problem: Compromised Skin Integrity Goal: Skin/Tissue integrity maintained or improved Outcome: Progressing Goal: Oral and Nasal mucous membranes remain intact Outcome: Progressing Goal: Incisions, wounds, or drain sites healing without S/S of infection Outcome: Progressing Problem: Incontinence and/or Moisture Goal: Skin integrity is maintained or improved Outcome: Progressing documented in this encounter ED Notes * Jaquan Menchaca M.D. - 10/17/2023 10:39 AM CDT Care of patient transferred to nc by Sonia Lucas M.D., M.S. Disposition pending OTS evaluation, and CT abdomen pelvis. Ortho seen and examined, we are awaiting the recommendations at this time. VITAL SIGNS BP 139/76 Pulse 85 Temp 36.8 ??C (Oral) Resp 17 SpO2 93% ED Course as of 10/17/23 1410 Sun Oct 17, [address] Hip Left without IV Contrast Mildly displaced fractures of the superior left iliac wing with approximately 1 cm of lateral displacement. No other visualized fractures. 1223 OTS came and evaluated the patient for further information please see their consult note. Patient was weight-bearing as tolerated, we will perform a trial of ambulation here, should the patient fail, or require continued IV pain control, she will likely require admission. 1247 Our nursing staff attempted to ambulate the patient, she unfortunately was not able to leave the bed due to pain. 1410 Care for this patient has been signed out to the inpatient family medicine team. Final Diagnoses: as of 10/17/23 1410 History Of Falling Jaquan Menchaca M.D. Resident 10/17/23 1410 * Sonia Lucas M.D., M.S. - 10/17/2023 6:30 AM CDT I have personally seen and examined this patient. I have fully participated in the care of this patient. I have reviewed all clinical information including history, physical exam, orders, and plan. Catalinagree with the note of the resident. Jillian 82-year-old female fell on her way back to her bed after going to the bathroom, she is complaining of left leg and hip pain, she is on Coumadin, she did not receive anything EN route, EMS notes that she has fallen 3 times in the last week. Patient has a history of CAD with stenting, intracardiac thrombus and is on Coumadin for this, type 2 diabetes, VIOLET, and a dilated cardiomyopathy. I personally reviewed the patient's EKG and my interpretation is normal sinus rhythm, no arrhythmia, and no acute ischemic changes. I personally reviewed the patient's CXR and my interpretation is trachea is midline, no signs of pneumonia, or pneumothorax. I personally reviewed old hospital records, ED records, and ECGs. Pt is found to have an AIIS avulsion fx and multiple potential rib fx and is in pain. Final Diagnoses: as of 10/20/23 1220 History Of Falling Sonia Lucas M.D., M.S. 10/20/23 1227 * Barbie Mitchell ROsvaldoN. - 10/17/2023 6:21 AM CDT Patient presents via EMS after a fall at home. She woke up to use the bathroom and tripped on her way back to bed. She fell onto her left leg and hip and complains of pain in that hip with range of motion. Is on coumadin. No obvious deformities noted. Does not think she hit her head but does have asmall scratch above the left eye. She has fallen 3 times within the last week at home. Barbie Mitchell R.N. 10/17/23 3092 * Darius Reeder M.D., M.B.A. - 10/17/2023 5:46 AM CDT SUBJECTIVE CHIEF COMPLAINT/REASON FOR VISIT Fall HISTORY OF PRESENT ILLNESS History provided by: Patient 82-year-old female with a past medical history of CAD s/p stent, dilated cardiomyopathy and CHF, intracardiac thrombus on warfarin, VIOLET, type 2 diabetes mellitus, and history of falling who presents with a fall. Per EMS report, she got up to use the bathroom this morning and fell. She was complaining of left leg pain and weakness. This has her 3rd fall this week. Per the patient, she states that she was walking back from the bathroom when she tripped and fell. She states she tripped over her own feet. She did not feel lightheaded or dizzy prior to this. She states she remembers the entire incident and denies a headache or nausea/vomiting. Her only complaintcurrently is left hip pain. She does endorse taking her warfarin. REVIEW OF SYSTEMS Constitutional: Negative for chills and fever. Respiratory: Negative for shortness of breath. Cardiovascular: Negative for chest pain. Musculoskeletal: Positive for extremity pain. Skin: Positive for wound. Neurological: Negative for dizziness and light-headedness. Psychiatric/Behavioral: Negative for confusion and decreased concentration. OBJECTIVE Initial Vitals Temperature 10/17/23 0551 36.8 ??C Pulse Rate 10/17/23 0601 76 Heart Rate -- Resp Rate 10/17/23 0601 18 Blood Pressure 10/17/23 0601 156/71 SpO2 10/17/23 0601 96 % Pain Score 10/17/23 0551 0 - No pain PHYSICAL EXAMINATION Constitutional: Vitals reviewed. She appears not lethargic. No distress. HENT: Head: Normocephalic and atraumatic. No signs of injury. Nose: No nasal discharge. Mouth/Throat: Oropharynx is clear and moist. Mucous membranes are moist. No tonsillar exudate. Dental: Good dentition. Eyes: Conjunctivae and EOM are normal. Cardiovascular: Normal rate. Pulmonary/Chest: Effort normal. No tachypnea. No respiratory distress. Abdominal: Soft. exhibits no distension. There is no abdominal tenderness. Musculoskeletal: General: Tenderness present. Normal range of motion. Cervical back: Normal range of motion. Comments: Pain with ranging of her left hip. She has an overlying abrasion. Strong distal pulses and able to range her left knee without difficulty. Neurological: Alert. She is not disoriented. Skin: Skin is warm. No rash noted. She is not diaphoretic. Psychiatric: She has a normal mood and affect. Behavior is normal. Thought content normal. ASSESSMENT/PLAN Assessment and Plan 82-year-old female with a past medical history of CAD s/p stent, dilated cardiomyopathy and CHF, intracardiac thrombus on warfarin, VIOLET, type 2 diabetes mellitus, and history of falling who presents with a fall. Per the patient, she had a mechanical fall this morning while returning from her bathroom. She states that she tripped over her feet. She denied any symptoms prior to. She states she remembers the entire incident. She does endorse taking her warfarin. Her only pain right now is her left hip. On exam, patient was in no acute distress. She was alert and oriented. She endorses left hip pain. It was painful with range of motion. She has strong distal pulses and sensation is intact. Her presentation is concerning for possible left hip fracture. We will obtain imaging of the area. Given that she was on blood thinners, we will also obtain basic labs and CT imaging of her head and neck.. DIFFERENTIAL DIAGNOSES Her workup is currently ongoing. Possible etiologies of her symptoms include a left hip fracture versus contusion.. PROBLEMS ADDRESSED THIS VISIT Left hip pain, repeat falls. ED Course as of 10/17/23 0658 Sun Oct 17, 2023 0603 ECG 12 Lead Per my interpretation, rightward axis, normal sinus rhythm, right bundle-branch block, ST depressions in the anterior leads similar to ECG 2 years ago. No significant change from prior ECG. ProlongedQTC. 0652 Hemoglobin(!): 10.7 Down 1.2 from prior lab 5 months ago 0658 She has been signed out to the oncoming team pending imaging results. Darius Reeder M.D., M.B.A. Resident 10/17/23 0658 documented in this encounter Miscellaneous Notes * Documentation Clarification - Denisse Dotson P.A.-C. - 10/20/2023 2:25 PM CDT PROVIDER RESPONSE TEXT: To clarify, the appropriate diagnosis supported by the clinical indicators: Anemia QUERY TEXT: Clarification DOCUMENTATION CLARIFICATION REQUEST Please clarify/specify the appropriate diagnosis supported in the clinical indicators below. Clinical Indicators/Risk Factors/Treatment: 10/16 H&P note, Dr. Wright, 82 y.o. female who presents with left hip fracture following a fall.She has medical comorbidities of coronary artery disease, dilated cardiomyopathy, CHF, depression, type 2 diabetes, obesity, VIOLET, hypertension with CKD 2, asthma, chronic diarrhea... at home and tripped... She hit her left leg and hip. In the ER she had a trauma CT scans which was significant for severe leukoaraiosis; chronic infarcts; acute right 5th rib fracture with possible 4-6 right rib fractures; mildly displaced left iliac wing fracture. 10/16 note, Dr. Kenney, Labs (10/17/23): Hgb 10.7. 10/19 DC Summary, JANIS Dotson, due to pain so she was admitted to the Family Medicine B service. Pain was controlled with scheduled Tylenol, topicals, and prn oxycodone. Respiratory therapy was consulted for rib fracture protocol, though she remained asymptomatic from her rib fracture. PT/OT were consulted and CM assisted with sending short-term rehab referrals. She remained afebrile and hemodynamically stable during admission and later discharged to [facility] in [place], [place] on 10/20/2023. Labs: 10/16 Hgb 10.7 10/18 Hgb 10.4 Options provided: -- Anemia -- Other - I will add my own diagnosis -- Disagree - Clinically unable to determine / Unknown -- Refer to Clinical Documentation Reviewer Query created by: Gely Solis on 11/09/2023 12:16 PM Electronically signed by: Denisse Dotson P.A.-C. 11/10/2023 3:02 PM * Hospital Course - Denisse Dotson P.A.-C. - 10/17/2023 3:48 PM CDT Mrs. Jeanine Montague is an 82 y.o. female who presented to the ED 10/17/2023 with a left hip fracture following a fall. She has medical comorbidities of coronary artery disease, dilated cardiomyopathy, CHF, depression, type 2 diabetes, obesity, VIOLET, hypertension with CKD 2, asthma, chronic diarrhea. Jeanine was at home and tripped. She did not lose consciousness. She hit her left leg and hip. She presented to the [place] ER via EMS. In the ER she had a trauma CT scans which was significant for CT head with severe leukoaraiosis and chronic appearing infarcts involving the right frontoparietal and right parietal occipital lobes; chest x-ray with acute right 5th rib fracture and possible 4-6 right rib fractures; and CT left hip showing mildly displaced acute left iliac wing fracture. Orthopedic Surgery was consulted and indicated she could weight bear as tolerated and discharge home, however, she was unable to bear weight due to pain so she was admitted to the Family Medicine B service. Pain was controlled with scheduled Tylenol, topicals, and prn oxycodone. Respiratory therapy was consulted for rib fracture protocol, though she remained asymptomatic from her rib fracture. PT/OT were consulted and CM assisted with sending short-term rehab referrals. She remained afebrile and hemodynamically stable during admission and later discharged to [facility] in [facility] 10/20/2023. documented in this encounter Plan of Treatment Upcoming Encounters Date Type Department Care Team (Late st Contact Info) Description 01/19/2024 3:30 PM RN PLASTIC SURGERY Nurse Only Department of Family Medicine, [facility], in [place], [place] [address] [place] [id number] documented as of this encounter Goals Goal Patient Goal Type Associated Problems Recent Progress Patient-Stated? Author Blood Pressure < 140/90 Blood Pressure 138/77(01/05 3:23 PM CDT) No Honey King R.N. 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 kitchen, vacuum, laundry 11/09 is doing more but not everyday 11/23 doing that most of the time, ie laundry, clean kitchen, clean bedroom 12/07/18 been gone a lot so hard to do this Engage in social activities Lifestyle On track(2018 1:32 PM CDT) No Teodora Horvath ROsvaldoNOsvaldo Note: Pt will look into attending Senior vitality group at [facility] [place] [facility] starting in November 20 went to funerals, talked with another lady she did not know there, doing [employer], swim aerobics, visited her son 11/23/18 went to [employer], going to [place] to visit relatives, going to [employer] 12/07/18 [place] mom and went to concert in [place]. Made a new friend. Hemoglobin A1c < 7.0 Result Component 9.9(05/06/19 24 1:03 PM RN PLASTIC SURGERY) No Honey King ROsvaldoN. PHQ-9 Total Score (max 27) < 5 Symptom Management 16( 2:19 PM CDT) No Teodora Horvath R.N. documented as of this encounter Procedures Procedure Name Priority Date/Time Associated Diagnosis Comments GLUCOSE POCT, B Routine 10/20/2023 12:05 PM CDT GLUCOSE POCT, B Routine 10/20/2023 8:34 AM CDT PROTHROMBIN TIME (PT), P STAT 10/20/2023 8:09 AM CDT GLUCOSE POCT, B Routine 10/19/2023 9:04 PM CDT GLUCOSE POCT, B Routine 10/19/2023 5:08 PM CDT GLUCOSE POCT, B Routine 10/19/2023 12:47 PM CDT GLUCOSE POCT, B Routine 10/19/2023 9:06 AM CDT PROTHROMBIN TIME (PT), P Routine 10/19/2023 6:00 AM CDT CBC WITHOUT DIFFERENTIAL, B Routine 10/19/2023 6:00 AM CDT BASIC METABOLIC PANEL, S/P Routine 10/19/2023 6:00 AM CDT GLUCOSE POCT, [...] some inpatients) 10/17/2023 8:50 AM CDT DX HIP AND PELVIS LEFT 2-3 VIEWS RAD - Semiurgent (Fast; most ED patients; some inpatients) 10/17/2023 7:06 AM CDT DX CHEST AP OR PA AND LATERAL 2 VIEWS RAD - Semiurgent (Fast; most ED patients; some inpatients) 10/17/2023 7:06 AM CDT HEPATIC FUNCTION PANEL, S STAT 10/17/2023 6:41 AM CDT PROTHROMBIN TIME (PT), P STAT 10/17/2023 6:41 AM CDT CBC WITH DIFFERENTIAL, B STAT 10/17/2023 6:41 AM CDT BASIC METABOLIC PANEL, S/P STAT 10/17/2023 6:[address] CERVICAL SPINE WITHOUT IV CONTRAST RAD - Semiurgent (Fast; most ED patients; some inpatients) 10/17/2023 6:[address] HEAD WITHOUT IV CONTRAST RAD - Semiurgent (Fast; most ED patients; some inpatients) 10/17/2023 6:27 AM CDT ECG STAT 10/17/2023 5:52 AM CDT documented in this encounter Results * (ABNORMAL) Glucose, POCT (10/20/2023 12:05 PM CDT) Glucose, POCT, B 241(H) 70 - 140 mg/dL 10/20/2023 12:21 PM CDT PCLX Site Capillary 10/20/2023 12:21 PM CDT PCLX Last Intake 2-3 hours 10/20/2023 12:21 PM CDT PCLX Blood 10/20/2023 12:0 5 PM CDT 10/20/2023 12:21 PM CDT Unknown Provider LAB POCT ORDERABLES-MANUAL Janet l Result Performing Organization Address City/[facility]/ZIP Co de Phone Number [facility] [address] [place] [address], [facility] PCLX [facility] POC [address] [place] [address] * (ABNORMAL) Glucose, POCT (10/20/2023 8:34 AM CDT) Glucose, POCT, B 157(H) 70 - 140 mg/dL 10/20/2023 9:08 AM CDT PCLX Site Capillary 10/20/2023 9:08 AM CDT PCLX Last Intake > 4 hours 10/20/2023 9:08 AM CDT PCLX Blood 10/20/2023 8:34 AM CDT 10/20/2023 9:08 AM CDT Unknown Provider LAB POCT ORDERABLES-MANUAL Janet l Result Performing Organization Address [facility] Co de Phone Number [facility] [address] [place] [address], [facility] POC [address] [place] [address] * (ABNORMAL) Prothrombin Time (PT) (10/20/2023 8:09 AM CDT) Prothrombin Time, P 27.6(H) 9.4 - 12.5 sec 10/20/2023 8:19 AM CDT STMA INR 2.5 0.9 - 1.1 10/20/2023 8:19 AM CDT STMA Comment: ----ADDITIONAL INFORMATION---- Standard intensity warfarin therapeutic range: 2.0 to 3.0 ?? High intensity warfarin therapeutic range: 2.5 to 3.5 Blood (Blood, Venous) 10/20/2023 8:09 AM CDT 10/20/2023 8:13 AM CDT Denisse Dotson P.A.-C. LAB BLOOD ADD-ON Fin al Result [facility] [address] [place] [address], [facility] STMA [facility] [address] [place] [address] * (ABNORMAL) Glucose, POCT (10/19/2023 9:04 PM CDT) Glucose, POCT, B 181(H) 70 - 140 mg/dL 10/19/2023 9:10 PM CDT PCLX Site Capillary 10/19/2023 9:10 PM CDT PCLX Last Intake 2-3 hours 10/19/2023 9:10 PM CDT PCLX Blood 10/19/2023 9:04 PM CDT 10/19/2023 9:10 PM CDT us Unknown Provider LAB POCT ORDERABLES-MANUAL Janet l Result Performing Organization Address City/[facility]/ZIP Co de Phone Number [facility] [address] [place] [address], [facility] POC [address] [place] [address] * (ABNORMAL) Glucose, POCT (10/19/2023 5:08 PM CDT) Pathologist [facility] Glucose, POCT, B 223(H) 70 - 140 mg/dL 10/19/2023 5:10 PM CDT PCLX Site Capillary 10/19/2023 5:10 PM CDT PCLX Blood 10/19/2023 5:08 PM CDT 10/19/2023 5:10 PM CDT us Unknown Provider LAB POCT ORDERABLES-MANUAL Janet l Result Performing Organization Address City/[facility]/ZIP Co de Phone Number [facility] [address] [place] [address], [facility] [address] [place] [address] * (ABNORMAL) Glucose, POCT (10/19/2023 12:47 PM CDT) Glucose, POCT, B 330(H) 70 - 140 mg/dL 10/19/2023 12:49 PM CDT PCLX Site Capillary 10/19/2023 12:49 PM CDT PCLX Last Intake 2-3 hours 10/19/2023 12:49 PM CDT PCLX Blood 10/19/2023 12:4 7 PM CDT 10/19/2023 12:50 PM CDT us Unknown Provider LAB POCT ORDERABLES-MANUAL Janet l Result Performing Organization Address [facility] Co de Phone Number [facility] [address] [place] [address], [facility] [address] [place] [address] * (ABNORMAL) Glucose, POCT (10/19/2023 9:06 AM CDT) Glucose, POCT, B 189(H) 70 - 140 mg/dL 10/19/2023 9:10 AM CDT PCLX Site ARTLINE 10/19/2023 9:10 AM CDT PCLX Last Intake 3-4 hours 10/19/2023 9:10 AM CDT PCLX Blood 10/19/2023 9:06 AM CDT 10/19/2023 9:11 AM CDT us Unknown Provider LAB POCT ORDERABLES-MANUAL Janet l Result Performing Organization Address [facility] Co de Phone Number [facility] [address] [place] [address], [facility] [address] [place] [address] * (ABNORMAL) Prothrombin Time (PT) (10/19/2023 6:00 AM CDT) Prothrombin Time, P 31.8(H) 9.4 - 12.5 sec 10/19/2023 7:01 AM CDT DTL INR 2.9 0.9 - 1.1 10/19/2023 7:01 AM CDT DTL Comment: ----ADDITIONAL INFORMATION---- Standard intensity warfarin therapeutic range: 2.0 to 3.0 ?? High intensity warfarin therapeutic range: 2.5 to 3.5 Blood (Blood, Venous) 10/19/2023 6:00 AM CDT 10/19/2023 6:45 AM CDT Annabelle Wright APRN, C.N.P. LAB BLOOD ADD-ON Janet l Result Performing Organization Address [facility] Co de Phone Number [facility] [address] [place], [place] [address] DTL [facility] [address] [place] [address] * (ABNORMAL) CBC without Differential (10/19/2023 6:00 AM CDT) Pathologist [facility] Hemoglobin 10.4(L) 11.6 - 15.0 g/dL [...] C.N.P. LAB BLOOD ADD-ON Janet l Result Performing Organization Address City/[facility]/ZIP Co de Phone Number [facility] [address] [place] [address], [facility] DTL [facility] [address] [place] [address] * (ABNORMAL) Basic Metabolic Panel (10/19/2023 6:00 AM CDT) [facility] Potassium, S 4.2 3.6 - 5.2 mmol/L [...] 6:00 AM CDT 10/19/2023 7:06 AM CDT us Annabelle Wright APRN, C.N.P. LAB BLOOD ADD-ON Janet vik Result [facility] [address] [place] [address], [facility] DTL [facility] [address] [place] [address] * (ABNORMAL) Glucose, POCT (10/19/2023 3:46 AM CDT) Glucose, POCT, B 243(H) 70 - 140 mg/dL 10/19/2023 3:48 AM CDT PCLX Site Capillary 10/19/2023 3:48 AM CDT PCLX Last Intake 1-2 hours 10/19/2023 3:48 AM CDT PCLX Blood 10/19/2023 3:46 AM CDT 10/19/2023 3:48 AM CDT us Unknown Provider LAB POCT ORDERABLES-MANUAL Janet l Result Performing Organization Address [facility] Co de Phone Number [facility] [address] [place] [address], [facility] [address] [place] [address] * (ABNORMAL) Glucose, POCT (10/18/2023 11:08 PM CDT) Glucose, POCT, B 297(H) 70 - 140 mg/dL 10/18/2023 11:10 PM CDT PCLX Site Capillary 10/18/2023 11:10 PM CDT PCLX Blood 10/18/2023 11:0 8 PM CDT 10/18/2023 11:10 PM CDT us Unknown Provider LAB POCT ORDERABLES-MANUAL Janet l Result Performing Organization Address [facility]/ZIP Co de Phone Number [facility] [address] [place] [address], [facility] [address] [place] [address] * (ABNORMAL) Glucose, POCT (10/18/2023 10:27 PM CDT) Glucose, POCT, B 300(H) 70 - 140 mg/dL 10/18/2023 10:30 PM CDT PCLX Site Capillary 10/18/2023 10:30 PM CDT PCLX Blood 10/18/2023 10:2 7 PM CDT 10/18/2023 10:30 PM CDT us Unknown Provider LAB POCT ORDERABLES-MANUAL Janet l Result Performing Organization Address [facility]/ZIP Co de Phone Number [facility] [address] [place] [address], [facility] [address] [place] [address] * (ABNORMAL) Glucose, POCT (10/18/2023 4:52 PM CDT) Glucose, POCT, B 239(H) 70 - 140 mg/dL 10/18/2023 4:59 PM CDT PCLX Site Capillary 10/18/2023 4:59 PM CDT PCLX Last Intake 3-4 hours 10/18/2023 4:59 PM CDT PCLX Blood 10/18/2023 4:52 PM CDT 10/18/2023 5:00 PM CDT us Unknown Provider LAB POCT ORDERABLES-MANUAL Janet l Result Performing Organization Address [facility] Co de Phone Number [facility] [address] [place] [address], [facility] [address] [place] [address] * (ABNORMAL) Glucose, POCT (10/18/2023 12:42 PM CDT) Glucose, POCT, B 258(H) 70 - 140 mg/dL 10/18/2023 12:48 PM CDT PCLX Blood 10/18/2023 12:4 2 PM CDT 10/18/2023 12:48 PM CDT us Unknown Provider LAB POCT ORDERABLES-MANUAL Janet l Result Performing Organization Address City/[facility]/ZIP Co de Phone Number [facility] [address] [place] [address], [facility] [address] [place] [address] * Glucose, POCT (10/18/2023 8:07 AM CDT) Glucose, POCT, B 136 70 - 140 mg/dL 10/18/2023 8:17 AM CDT PCLX Site Capillary 10/18/2023 8:17 AM CDT PCLX Last Intake 3-4 hours 10/18/2023 8:17 AM CDT PCLX Blood 10/18/2023 8:07 AM CDT 10/18/2023 8:18 AM CDT Unknown Provider LAB POCT ORDERABLES-MANUAL Janet l Result Performing Organization Address [facility] Co de Phone Number [facility] [address] [place] [address], [facility] [address] [place] [address] * (ABNORMAL) Prothrombin Time (PT) (10/18/2023 6:56 AM CDT) Prothrombin Time, P 29.1(H) 9.4 - 12.5 sec 10/18/2023 7:47 AM CDT DTL INR 2.6 0.9 - 1.1 10/18/2023 7:47 AM CDT DTL Comment: ----ADDITIONAL INFORMATION---- Standard intensity warfarin therapeutic range: 2.0 to 3.0 ?? High intensity warfarin therapeutic range: 2.5 to 3.5 Blood (Blood, Venous) 10/18/2023 6:56 AM CDT 10/18/2023 7:19 AM CDT Annabelle Wright APRN, C.N.P. LAB BLOOD ADD-ON Janet l Result Performing Organization Address City/[facility] Co de Phone Number [facility] [address] [place] [address], [facility] DTL [facility] [address] [place] [address] * (ABNORMAL) Glucose, POCT (10/17/2023 9:32 PM CDT) Glucose, POCT, B 213(H) 70 - 140 mg/dL 10/17/2023 9:35 PM CDT PCLX Site Capillary 10/17/2023 9:35 PM CDT PCLX Last Intake 3-4 hours 10/17/2023 9:35 PM CDT PCLX Blood 10/17/2023 9:32 PM CDT 10/17/2023 9:35 PM CDT us Unknown Provider LAB POCT ORDERABLES-MANUAL Janet l Result Performing Organization Address [facility] Co de Phone Number [facility] [address] [facility] [address] [place] [address] * (ABNORMAL) Glucose, POCT (10/17/2023 4:24 PM CDT) Glucose, POCT, B 185(H) 70 - 140 mg/dL 10/17/2023 4:28 PM CDT PCLX Site Capillary 10/17/2023 4:28 PM CDT PCLX Blood 10/17/2023 4:24 PM CDT 10/17/2023 4:28 PM CDT us Unknown Provider LAB POCT ORDERABLES-MANUAL Janet l Result Performing Organization Address [facility] Co de Phone Number [facility] [address] [place] [address] [facility] [address] [place] [address] * CT Hip Left without IV Contrast [...] CT PROCEDURES Final Re sult * DX Chest AP or PA and [...] changes both shoulders. Sonia Lucas M.D., M.S. IMG DIAGNOSTIC IMAGING PROCEDURES Final Result * DX Hip And Pelvis Left 2-3 [...] DIAGNOSTIC IMAGING PROCEDURES Final Result * (ABNORMAL) Prothrombin Time (PT) (10/17/2023 6:41 AM CDT) Pathologist [facility] Prothrombin Time, P 23.5(H) 9.4 - 12.5 sec 10/17/2023 6:54 AM CDT [facility] INR 2.1 0.9 - 1.1 10/17/2023 6:54 AM CDT [facility] Comment: ----ADDITIONAL INFORMATION---- Standard intensity warfarin therapeutic range: 2.0 to 3.0 ?? High intensity warfarin therapeutic range: 2.5 to 3.5 Blood (Blood, Venous) 10/17/2023 6:41 AM CDT 10/17/2023 6:46 AM CDT Darius Reeder M.D., M.B.A. LAB BLOOD ADD-ON Janet l Result [facility] [address] [place] [address], [facility] [address] [place] [address] * (ABNORMAL) Basic Metabolic Panel (10/17/2023 6:41 AM CDT) Potassium, P 4.2 3.6 - 5.2 mmol/L 10/17/2023 7:02 AM CDT STMA Sodium, P 138 135 - 145 mmol/L 10/17/2023 7:02 AM CDT STMA Chloride, P 101 98 - 107 mmol/L 10/17/2023 7:02 AM CDT STMA Bicarbonate, P 26 22 - 29 mmol/L 10/17/2023 7:02 AM CDT STMA Anion Gap, P 11 7 - 15 10/17/2023 7:02 AM CDT STMA BUN (Blood Urea Nitrogen), P 13 6 - 21 mg/dL 10/17/2023 7:02 AM CDT STMA Creatinine 0.95 0.59 - 1.04 mg/dL 10/17/2023 7:02 AM CDT STMA Estimated GFR (eGFR) 61 >=60 mL/min/BSA 10/17/2023 7:02 AM CDT STMA Comment: Estimated GFR calculated using the 2020 CKD_EPI creatinine equation. Calcium, Total, P 9.2 8.8 - 10.2 mg/dL 10/17/2023 7:02 AM CDT STMA Glucose, P 187(H) 70 - 140 mg/dL 10/17/2023 7:02 AM CDT STMA Blood (Blood, Venous) 10/17/2023 6:41 AM CDT 10/17/2023 6:46 AM CDT Darius Reeder M.D., M.B.A. LAB BLOOD ADD-ON Janet l Result [facility] [address] [place] [address], [facility] [address] [place] [address] * (ABNORMAL) Hepatic Function Panel (10/17/2023 6:41 [...] M.B.A. LAB BLOOD ADD-ON Janet l Result [place] [address] [place] [address], [facility] [place] [place] [address] * (ABNORMAL) CBC with Differential, Blood (10/17/2023 [...] M.B.A. LAB BLOOD ADD-ON Janet l Result [facility] [address] [place] [address], [facility] STMA [facility] [address] [place] [address] DHPM [facility] [address] [place] [address] * CT Cervical Spine without IV Contrast (10/17/2023 6:27 AM CDT) Anatomical Region Laterality Modality Cervical Spine, Neuroradiolo gy RST LOS, Neuroradiology ARZ LOS, Neuroradiology FLA LOS N/A [...] Anatomical Region Laterality Modality Head, Neuroradiology RST [facility] , [facility], [facility] N/A Computed Tomography, Compute d Tomography [...] nodule. Recommend dedicatednonemergent ultrasound for better characterization. Sonia Lucas M.D., M.S. IMG CT PROCEDURES Final Result * ECG 12 Lead (10/17/2023 5:52 AM CDT) Ventricular Rate ECG/Min 75 BPM MUSE DC Interval 178 ms MUSE QRSD Interval 156 ms MUSE QT Interval 470 ms MUSE QTC Interval 524 ms MUSE P Revelo 57 degrees MUSE R Revelo -8 degrees MUSE T Wave Revelo 23 degrees MUSE 10/17/2023 5:52 AM CDT 10/17/2023 2:17 PM CDT Impressions MUSE - 10/17/2023 5:55 AM CDT Normal sinus rhythm Right bundle branch block Cannot rule out Inferior infarct Nonspecific ST and T wave abnormality Prolonged QT When compared with ECG of 11-Apr-2021 16:21, DC interval has decreased QT has lengthened Reviewed by KENYON Eugene Narrative Procedure Note Javan Driscoll M.D. - 10/17/2023 IMPRESSION: Normal sinus rhythm Right bundle branch block Cannot rule out Inferior infarct Nonspecific ST and T wave abnormality Prolonged QT When compared with ECG of 11-Apr-2021 16:21, DC interval has decreased QT has lengthened Reviewed by KENYON Eugene us Sonia Lucas M.D., M.S. 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 Kidney Disease Or Unspecified Chronic Kidney Disease (HCC) Cardiomyopathy Dilated (HCC) Chronic Systolic (Congestive) Heart Failure (HCC) Thrombus Intracardiac Alf (Current) Anticoagulant Treatment Monitoring For Therapeutic Drug Therapy Fracture Rib Multiple Closed Initial Right Fracture Ilium Avulsion Displaced Closed Initial Left (HCC) History Of Falling Fracture Rib Multiple Closed Initial Right Cardiomyopathy Dilated (HCC) Acute On Chronic Systolic (Congestive) Heart Failure (HCC) Congestive Heart Failure Ejection Fraction Less Than 35 Percent And [place] [employer] Class 2-3 (HCC) Chronic Systolic (Congestive) Heart Failure (HCC) Diabetes Mellitus Type 2 (HCC) 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 Kidney Disease Or Unspecified Chronic Kidney Disease (HCC) Obesity Body Mass Index 30-39.9 Adult Obstructive Sleep Apnea Adult Prolonged QT Interval documented in this encounter Admitting Diagnoses Diagnosis History Of Falling documented in this encounter Administered Medications Inactive Administered Medications - up to 3 most recent administrations Medication Order MAR Action Action Date Dose Rate Site acetaminophen tablet 1,000 mg (TylenoL) 1,000 mg, oral, 4 times daily, First dose (after last modification) on Wed10/19/23 at 1700 Given 10/20/2023 12:06 PM CDT 1,000 mg Given 10/20/2023 8:37 AM CDT 1,000 mg Given 10/19/2023 9:05 PM CDT 1,000 mg acetaminophen tablet 650 mg (TylenoL) 650 mg, oral, 4 times daily, First dose on Wed10/17/23 at 1700 Given 10/19/2023 11:40 AM CDT 650 mg Given 10/19/2023 8:46 AM CDT 650 mg Given 10/18/2023 9:54 PM CDT [address] tablet 81 mg 81 mg, oral, Daily, First dose on Wed10/18/23 at 0900, Swallow whole. Do NOT crush, chew, or split tablet. Given 10/20/2023 8:37 AM CDT 81 mg Given 10/19/2023 8:50 AM CDT 81 mg Given 10/18/2023 8:09 AM CDT 81 mg budesonide 24 hr capsule 6 mg (Entocort EC) 6 mg, oral, Daily, First dose on Wed10/18/23 at 0900, See tube feeding guidelines for tube feeding administration instructions. Given 10/20/2023 8:37 AM CDT 6 mg Given 10/19/2023 8:45 AM CDT 6 mg Given 10/18/2023 8:09 AM CDT 6 mg buPROPion XL 24 hr tablet 450 mg (Wellbutrin XL) 450 mg, oral, Every morning, First dose on Wed10/18/23 at 0900, Swallow whole. Do NOT crush, chew, or split tablet. Given 10/20/2023 8:38 AM CDT 450 mg Given 10/19/2023 8:45 AM CDT 450 mg Given 10/18/2023 8:09 AM CDT 450 mg D5W infusion 1-999 mL/hr, intravenous, As needed, Medications Incompatible with 0.9% NaCL, Starting on Wed10/17/23 at 1729, Infuse at the same rate as the piggyback until tubing clears or up to a volume of 20 mL pre and post infusion for medications incompatible with 0.9% NaCL. Use 50 mL bag then discard. diclofenac sodium 1 % gel 2 g (Voltaren) 2 g, topical, 4 times daily PRN, pain, Starting on Wed10/19/23 at 1245, Do not exceed 32 g per day, over all affected joints. Use dosing card to measure product. 2 g = 2.25 inches, 4 gm = 4.5 inches. Rinse dosing card after use and save for each administration. Given 10/20/2023 8:38 AM CDT 2 g fentaNYL injection 50 mcg (Sublimaze) 50 mcg, intravenous, Once, On Wed10/17/23 at 0819, For 1 dose Given 10/17/2023 8:21 AM CDT 50 mcg fentaNYL injection 50 mcg (Sublimaze) 50 mcg, intravenous, Once, On Wed10/17/23 at 1114, For 1 dose Given 10/17/2023 11:16 AM CDT 50 mcg insulin aspart U-100 injection 0-13 Units (NovoLOG FlexPen) 0-13 Units, subcutaneous, 3 times daily, First dose on Wed10/17/23 at 1700, Insulin Scale: Moderate Correction Scale, 140 - 179: 2 units, 180 - 219: 4 units, 220 - 259: 6 units, 260 - 299: 8 units, 300 - 339: 10 units, 340 - 379: 12 units, 380 - 399: 13 units, Greater than 399: Call service writing Insulin orders Given 10/20/2023 12:06 PM CDT 6 Units Right Upper Abdomen Given 10/20/2023 8:39 AM CDT 2 Units Ri ght Upper Arm (Back) Given 10/19/2023 5:43 PM CDT 6 Units Ri ght Upper Arm (Back) insulin aspart U-100 injection 0-7 Units (NovoLOG FlexPen) 0-7 Units, subcutaneous, Daily at bedtime, First dose on Wed10/19/23 at 0000, Insulin Scale: Modified Bedtime Correction Scale, 220-259: 3 units, 260-299: 4 units, 300-339: 5 units, 340-379: 6 units, 380-399: 7 units, Greater than 399: Call service writing insulin orders Given 10/18/2023 11:44 PM CDT 4 Units Right Upper Arm (Back) lidocaine 5 % 1 patch (Lidoderm) 1 patch, transdermal, Administer over 12 Hours, Daily, First dose on Wed10/19/23 at 1330, Remove after 12 hours. Medication Applied 10/20/2023 8:38 AM CDT 1 patch Left Leg Medication Applied 10/19/2023 1:41 PM CDT 1 patch Flank loperamide capsule 4 mg (Imodium A-D) 4 mg, oral, Daily, First dose on Wed10/18/23 at 0900, loperamide (IMODIUM A-D) orderable was interchanged for the loperamide (IMODIUM A-D) tablet/capsule Given 10/20/2023 8:38 AM CDT 4 mg Given 10/19/2023 8:46 AM CDT 4 mg Given 10/18/2023 8:09 AM CDT 4 mg metFORMIN XR 24 hr tablet 1,000 mg (Glucophage-XR) 1,000 mg, oral, 2 times daily, First dose on Wed10/17/23 at 2100, Swallow whole. Do NOT crush, chew, or split tablet. Given 10/20/2023 8:38 AM CDT 1,000 mg Given 10/19/2023 9:06 PM CDT 1,000 mg metoprolol succinate 24 hr tablet 25 mg (Toprol XL) 25 mg, oral, Daily, First dose on Wed10/18/23 at 0900, Do NOT crush or chew. Tablet may be split on score if needed. Given 10/20/2023 8:37 AM CDT 25 mg Given 10/19/2023 8:47 AM CDT 25 mg Given 10/18/2023 8:09 AM CDT 25 mg NaCl 0.9% infusion 1-999 mL/hr, intravenous, As needed, Between Consecutive Piggyback Medications, Starting on Wed10/17/23 at 1729, Infuse at the same rate as the piggyback until tubing clears or up to a volume of 20 mL. Select for IV medication administration when no maintenance IV available or when IV medications are not compatible with maintenance fluid. NaCl 0.9% infusion 1-999 mL/hr, intravenous, As needed, Post Medications (Hazardous/Low Fluid Volume), Starting on Wed10/17/23 at 1729, Infuse at the same rate as the medication until tubing cleared of medication, then discard. nystatin 100,000 unit/gram powder 1 Application (Nystop) 1 Application, topical, 3 times daily, First dose on Wed10/17/23 at 2100 Given 10/20/2023 8:40 AM CDT 1 Applicati on Given 10/19/2023 9:06 PM CDT 1 Application Given 10/19/2023 11:40 AM CDT 1 Application oxyCODONE IR tablet 2.5 mg (Roxicodone) 2.5 mg, oral, Every 3 hours PRN, moderate pain or score 4-6 of 10, Give 2.5 mg for pain score 4-6 or give 5 mg for pain score 7-10, Starting on Wed10/17/23 at 1537 Given 10/19/2023 8:46 AM CDT 2.5 mg Given 10/18/2023 8:09 AM CDT 2.5 mg Given 10/17/2023 5:06 PM CDT 2.5 mg oxyCODONE IR tablet 2.5 mg (Roxicodone) 2.5 mg, oral, Every 4 hours PRN, moderate pain or score 4-6 of 10, Give 2.5 mg for pain score 4-6 or give 5 mg for pain score 7-10, Starting on Wed10/19/23 at 1246 Given 10/19/2023 9:16 PM CDT 2.5 mg oxyCODONE IR tablet 5 mg (Roxicodone) 5 mg, oral, Every 3 hours PRN, severe pain or score 7-10 of 10, Give 2.5 mg for pain score 4-6 or give 5 mg for pain score 7-10, Starting on Wed10/17/23 at 1537 Given 10/18/2023 4:53 PM CDT 5 mg Given 10/18/2023 12:43 PM CDT 5 mg oxyCODONE IR tablet 5 mg (Roxicodone) 5 mg, oral, Every 4 hours PRN, severe pain or score 7-10 of 10, Give 2.5 mg for pain score 4-6 or give 5 mg for pain score 7-10, Starting on Wed10/19/23 at 1246 Given 10/20/2023 8:37 AM CDT 5 mg rosuvastatin tablet 20 mg (Crestor) 20 mg, oral, Daily, First dose on Wed10/18/23 at 0900 Given 10/20/2023 8:37 AM CDT 20 mg Given 10/19/2023 8:45 AM CDT 20 mg Given 10/18/2023 8:09 AM CDT 20 mg traZODone tablet 50 mg (DesyreL) 50 mg, oral, Daily at bedtime, First dose on Wed10/17/23 at 2100 Given 10/19/2023 10:07 PM CDT 50 mg Given 10/18/2023 10:34 PM CDT 50 mg Given 10/17/2023 10:22 PM CDT 50 mg valsartan tablet 20 mg (Diovan) 20 mg, oral, 2 times daily, First dose on Wed10/17/23 at 2100 Given 10/20/2023 8:38 AM CDT 20 mg Given 10/19/2023 9:05 PM CDT 20 mg Given 10/19/2023 8:47 AM CDT 20 mg warfarin tablet 1.5 mg (Jantoven) 1.5 mg, oral, Once, On Wed10/19/23 at 1700, For 1 dose, HAZARDOUS - Handle with care. Swallow whole. Do NOT chew or split tablet. May crush using the RxCrush system. Given 10/19/2023 5:01 PM CDT 1.5 mg warfarin tablet 2 mg (Jantoven) 2 mg, oral, Once, On Wed10/18/23 at 1700, For 1 dose, HAZARDOUS - Handle with care. Swallow whole. Do NOT chew or split tablet. May crush using the RxCrush system. Given 10/18/2023 4:53 PM CDT 2 mg warfarin tablet 3 mg (Jantoven) 3 mg, oral, Once, On Wed10/17/23 at 1700, For 1 dose, HAZARDOUS - Handle with care. Swallow whole. Do NOT chew or split tablet. May crush using the RxCrush system. Given 10/17/2023 4:56 PM CDT 3 mg documented in this encounter Active and Recently Administered Medications Times are shown in CDT. Scheduled Medication Order 10/18/2023 10/19/2023 10/20/2023 acetaminophen tablet 1,000 mg (TylenoL) 1,000 mg, oral, 4 times daily, First dose (after last modification) on Wed10/19/23 at 1700 1701 (Given - Provider: Noah Mcintosh R.N.)2105 (Given - Provider: Maki Silver R.N.) 0837 (Given - Provider: Deja Hassan R.N.)1206 (Given - Provider: Deja Hassan R.N.) acetaminophen tablet 650 mg (TylenoL) (CANCELED) 650 mg, oral, 4 times daily, First dose on Wed10/17/23 at 1700 0809 (Given - Provider: Whitley Olivares R.N.)1243 (Given - Provider: Whitley Olivares R.N.)1653 (Given - Provider: Whitley Olivares R.N.)2154 (Given - Provider: Melissa Krueger R.N.) 0846 (Given - Provider: Noah Mcintosh R.N.)1140 (Given - Provider: Noah Mcintosh R.N.) aspirin DR tablet 81 mg 81 mg, oral, Daily, First dose on Wed10/18/23 at 0900, Swallow whole. Do NOT crush, chew, or split tablet. 0809 (Given - Provider: Whitley Olivares R.N.) 0850 (Given - Provider: Noah Mcintosh R.N.) 0837 (Given - Provider: Deja Hassan R.N.) budesonide 24 hr capsule 6 mg (Entocort EC) 6 mg, oral, Daily, First dose on Wed10/18/23 at 0900, See tube feeding guidelines for tube feeding administration instructions. 0809 (Given - Provider: Whitley Olivares R.N.) 0845 (Given - Provider: Noah Mcintosh R.N.) 0837 (Given - Provider: Deja Hassan R.N.) buPROPion XL 24 hr tablet 450 mg (Wellbutrin XL) 450 mg, oral, Every morning, First dose on Wed10/18/23 at 0900, Swallow whole. Do NOT crush, chew, or split tablet. 0809 (Given - Provider: Whitley Olivares R.N.) 0845 (Given - Provider: Noah Mcintosh R.N.) 0838 (Given - Provider: Deja Hassan R.N.) furosemide tablet 40 mg (Lasix) 40 mg, oral, Daily, First dose on Wed10/18/23 at 0900, On hold since Wed10/17/2023 at 1537 until manually unheld 0900 (Not Given - Provider: Whitley Olivares R.N. - Reason: See Provider Order) 0900 (Not Given - Provider: Marry Maurer R.N. - Reason: See Provider Order) 0900 (Not Given - Provider: Deja Hassan R.N. - Reason: See Provider Order)1625 (Unheld by provider - Provider: Discharge Provider, Automatic) insulin aspart U-100 injection 0-13 Units (NovoLOG FlexPen) 0-13 Units, subcutaneous, 3 times daily, First dose on Wed10/17/23 at 1700, Insulin Scale: Moderate Correction Scale, 140 - 179: 2 units, 180 - 219: 4 units, 220 - 259: 6 units, 260 - 299: 8 units, 300 - 339: 10 units, 340 - 379: 12 units, 380 - 399: 13 units, Greater than 399: Call service writing Insulin orders 0808 (Not Given - Provider: Whitley Olivares R.N. - Reason: Order parameters not met - Comment: BS)1245 (Given - Provider: Whitley Olivares R.N.)1652 (Given - Provider: Whitley Olivares R.N.) 1014 (Given - Provider: Noah Mcintosh R.N.)1250 (Given - Provider: Noah Mcintosh R.N.)1743 (Given - Provider: Noah Mcintosh R.N.) 0839 (Given - Provider: Deja Hassan R.N. - Comment: [phone] (Given - Provider: Deja Hassan R.N. - Comment: 241) insulin aspart U-100 injection 0-7 Units (NovoLOG FlexPen) 0-7 Units, subcutaneous, Daily at bedtime, First dose on Wed10/19/23 at 0000, Insulin Scale: Modified Bedtime Correction Scale, 220-259: 3 units, 260-299: 4 units, 300-339: 5 units, 340-379: 6 units, 380-399: 7 units, Greater than 399: Call service writing insulin orders 2344 (Given - Provider: Maki Silver R.N.) 2105 (Not Given - Provider: Maki Silver R.N. - Reason: Order parameters not met - Comment: 181) lidocaine 5 % 1 patch (Lidoderm) 1 patch, transdermal, Administer over 12 Hours, Daily, First dose on Wed10/19/23 at 1330, Remove after 12 hours. 1341 (Medication Applied - Provider: Marry Maurer R.N.) 0100 (Medication Removed - Provider: Maki Silver R.N.)0838 (Medication Applied - Provider: Deja Hassan R.N.)1425 (Due: Medication Removed - Provider: Discharge Provider, Automatic - Comment: Time automatically adjusted from order being discontinued) loperamide capsule 4 mg (Imodium A-D) 4 mg, oral, Daily, First dose on Wed10/18/23 at 0900, loperamide (IMODIUM A-D) orderable was interchanged for the loperamide (IMODIUM A-D) tablet/capsule 0809 (Given - Provider: Whitley Olivares R.N.) 0846 (Given - Provider: Noah Mcintosh R.N.) 0838 (Given - Provider: Deja Hassan R.N.) metFORMIN XR 24 hr tablet 1,000 mg (Glucophage-XR) 1,000 mg, oral, 2 times daily, First dose on Wed10/17/23 at 2100, Swallow whole. Do NOT crush, chew, or split tablet. 0900 (Not Given - Provider: Whitley Olivares R.N. - Reason: See Provider Order)2100 (Not Given - Provider: Maki Silver R.N. - Reason: See Provider Order) 0900 (Not Given - Provider: Marry L Maurer, R.N. - Reason: See Provider Order)1244 (Unheld by provider - Provider: Denisse Dotson P.A.-C.)2105 (Given - Provider: Maki Silver R.N.) 0838 (Given - Provider: Deja Hassan R.N.) metoprolol succinate 24 hr tablet 25 mg (Toprol XL) 25 mg, oral, Daily, First dose on Wed10/18/23 at 0900, Do NOT crush or chew. Tablet may be split on score if needed. 0809 (Given - Provider: Whitley Olivares R.N.) 0847 (Given - Provider: Noah Mcintosh R.N.) 0837 (Given - Provider: Deja Hassan R.N.) nystatin 100,000 unit/gram powder 1 Application (Nystop) 1 Application, topical, 3 times daily, First dose on 10/17/23 at 2100 0815 (Given - Provider: Whitley Olivares R.N.)1507 (Given - Provider: Whitley Olivares R.N. - Comment: waiting for pt to get in bed)2258 (Given - Provider: Melissa Krueger R.N.) 1140 (Given - Provider: Noah Mcintosh R.N.)1341 (Not Given - Provider: Marry Maurer RLiyah - Reason: Patient/family refused - Comment: morning dose put on late due to pt wanting to shower prior, pt did not want more applied at this time)2105 (Given - Provider: Maki Silver R.N.) 0840 (Given - Provider: Deja Hassan ROsvaldoNOsvaldo)1400 (Due) rosuvastatin tablet 20 mg (Crestor) 20 mg, oral, Daily, First dose on Wed10/18/23 at 0900 0809 (Given - Provider: Whitley Olivares R.N.) 0845 (Given - Provider: Noah Mcintosh R.N.) 0837 (Given - Provider: Deja Hassan R.N.) traZODone tablet 50 mg (DesyreL) 50 mg, oral, Daily at bedtime, First dose on 10/17/23 at 2100 2234 (Given - Provider: Darwin BajwaNOsvaldo) 2207 (Given - Provider: Darwin GreerNOsvaldo) valsartan tablet 20 mg (Diovan) 20 mg, oral, 2 times daily, First dose on 10/17/23 at 2100 0809 (Given - Provider: Whitley Olivares R.N.)2154 (Given - Provider: Darwin GreerN.) 0847 (Given - Provider: Noah Mcintosh R.N.)2105 (Given - Provider: Darwin ZavalaNOsvaldo) 0838 (Given - Provider: Deja Hassan R.N.) warfarin management (Jantoven) oral, Daily, First dose on 10/17/23 at 1600, Pharmacist to Dose: Yes, Target INR: 2 - 3, Comorbidities that constitute Warfarin Sensitivity: No known comorbidities that change warfarin sensitivity, Indication: Other, Explanatory Comment: left ventricular thrombus, Therapy type: Continuation Warfarin therapy 1700 (Due) 1700 (Due) warfarin tablet 1.5 mg (Jantoven) (COMPLETED) 1.5 mg, oral, Once, On Wed10/19/23 at 1700, For 1 dose, HAZARDOUS - Handle with care. Swallow whole. Do NOT chew or split tablet. May crush using the RxCrush system. 170 (Given - Provider: Noah Mcintosh RLiyah) warfarin tablet 2 mg (Jantoven) (COMPLETED) 2 mg, oral, Once, On Wed10/18/23 at 1700, For 1 dose, HAZARDOUS - Handle with care. Swallow whole. Do NOT chew or split tablet. May crush using the RxCrush system. 1653 (Given - Provider: Whitley Olivares R.N.) PRN Medication Order 10/18/2023 10/19/2023 10/20/2023 albuterol nebulizer solution 2.5 mg 2.5 mg, nebulization, Every 6 hours PRN, shortness of breath, wheezing, Starting on 10/17/23 at 1537, Albuterol nebs were interchanged for albuterol/levalbuterol MDI (same frequency) D5W infusion 1-999 mL/hr, intravenous, As needed, Medications Incompatible with 0.9% NaCL, Starting on Wed10/17/23 at 1729, Infuse at the same rate as the piggyback until tubing clears or up to a volume of 20 mL pre and post infusion for medications incompatible with 0.9% NaCL. Use 50 mL bag then discard. diclofenac sodium 1 % gel 2 g (Voltaren) 2 g, topical, 4 times daily PRN, pain, Starting on Wed10/19/23 at 1245, Do not exceed 32 g per day, over all affected joints. Use dosing card to measure product. 2 g = 2.25 inches, 4 gm = 4.5 inches. Rinse dosing card after use and save for each administration. 0838 (Given - Provider: Deja Hassan R.N.) NaCl 0.9% infusion 1-999 mL/hr, intravenous, As needed, Between Consecutive Piggyback Medications, Starting on Wed10/17/23 at 1729, Infuse at the same rate as the piggyback until tubing clears or up to a volume of 20 mL. Select for IV medication administration when no maintenance IV available or when IV medications are not compatible with maintenance fluid. NaCl 0.9% infusion 1-999 mL/hr, intravenous, As needed, Post Medications (Hazardous/Low Fluid Volume), Starting on Wed10/17/23 at 1729, Infuse at the same rate as the medication until tubing cleared of medication, then discard. naloxone injection 0.2 mg (Narcan) 0.2 mg, intravenous, As needed, respiratory depression, Starting on Wed10/17/23 at 1537, For RASS Score -4 or less, respiratory rate of less than 8 breaths/min. Notify provider/service and rapid response team (if available at institution). nitroglycerin SL tablet 0.4 mg (Nitrostat) 0.4 mg, sublingual, Every 5 min PRN, chest pain, Starting on Wed10/17/23 at 1537, May administer up to 3 doses per episode. Dissolve under the tongue. Do NOT crush, chew, split or swallow tablet., Indications: angina oxyCODONE IR tablet 2.5 mg (Roxicodone) (CANCELED) 2.5 mg, oral, Every 3 hours PRN, moderate pain or score 4-6 of 10, Give 2.5 mg for pain score 4-6 or give 5 mg for pain score 7-10, Starting on 10/17/23 at 1537 0809 (Given - Provider: Whitley Olivares R.N. - Comment: pre med for PT)1243 (See Alternative - Provider: Whitley Olivares R.N.)1653 (See Alternative - Provider: Whitley Olivares R.N.) 0846 (Given - Provider: Noah Mcintosh R.N.) oxyCODONE IR tablet 2.5 mg (Roxicodone)(Linked Group 1) 2.5 mg, oral, Every 4 hours PRN, moderate pain or score 4-6 of 10, Give 2.5 mg for pain score 4-6 or give 5 mg for pain score 7-10, Starting on Wed10/19/23 at 1246 2116 (Given - Provider: Maki Silver R.N.) 0837 (See Alternative - Provider: Deja Hassan R.N.) oxyCODONE IR tablet 5 mg (Roxicodone) (CANCELED) 5 mg, oral, Every 3 hours PRN, severe pain or score 7-10 of 10, Give 2.5 mg for pain score 4-6 or give 5 mg for pain score 7-10, Starting on 10/17/23 at 1537 0809 (See Alternative - Provider: Whitley Olivares R.N.)1243 (Given - Provider: Whitley Olivares R.N. - Comment: per pt request)1653 (Given - Provider: Whitley Olivares R.N.) 0846 (See Alternative - Provider: Noah Mcintosh R.N.) oxyCODONE IR tablet 5 mg (Roxicodone)(Linked Group 1) 5 mg, oral, Every 4 hours PRN, severe pain or score 7-10 of 10, Give 2.5 mg for pain score 4-6 or give 5 mg for pain score 7-10, Starting on Wed10/19/23 at 1246 2116 (See Alternative - Provider: Maki Silver R.N.) 0837 (Given - Provider: Deja Hassan R.N.) Linked Groups Order Group 1: oxyCODONE IR tablet 2.5 mg (Roxicodone)Jump to med 2.5 mg, oral, Every 4 hours PRN, moderate pain or score 4-6 of 10, Give 2.5 mg for pain score 4-6 or give 5 mg for pain score 7-10, Starting on Wed10/19/23 at 1246 Or oxyCODONE IR tablet 5 mg (Roxicodone)Jump to med 5 mg, oral, Every 4 hours PRN, severe pain or score 7-10 of 10, Give 2.5 mg for pain score 4-6 or give 5 mg for pain score 7-10, Starting on Wed10/19/23 at 1246 documented in this encounter Additional Health Concerns Assessment Noted Time PHQ-9 Depression Total Score: 16 10/04/ 024 2:19 PM CDT documented as of this encounter Care Teams Therapist Respiratory Relationship Specialty Start Date End Date Mich Luevano, DOsvaldoOOsvaldo [address] [place] [address] PCP - General 09/12/22 documented as of this encounter
--- OUTSIDE RECORDS SUMMARY | 2024-01-11 04:38 | XMS_ITS | Encounter Summary ---
Author Organization [facility] Address [address] [place] [address] Care Team Providers Care [employer] Name Role Phone Mich Luevano D.O. Primary Care Pro vider Encounter Details Date Type Department Care Team (Latest Contact Info) Description 10/15/2023 9:30 AM CDT - 10/15/2023 11:59 PM CDT Hospital Encounter Department of Laboratory Medicine in [place], [place] [address] [place] [phone] Mich Luevano D.O. [address] [place] [phone] Retirement (Current) Anticoagulant Treatment; Thrombus Intracardiac; Congestive Heart Failure Ejection Fraction Less Than 35 Percent And [place] Heart Association Class 2-3 (HCC); Monitoring For Therapeutic Drug Therapy; Cardiomyopathy Dilated (HCC); Chronic Systolic (Congestive) Heart Failure (HCC) Discharge Disposition: Home or Self Care Social History Tobacco Use Types Packs/Day Years [...] often do you attend chur ch or mormonism services? More than 4 times per year 06/15/2022 Do you belong to any clubs o r organizations such as mosque groups, unions, fraternal or athletic groups, or [...] Answer Date Recorded PHQ-2 Score 6 10/05/2023 [facility] - Occupational [...] place to sleep or slept in a fdc (including now)? 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 54 g [address] tablet Take 81 mg by mouth daily. budesonide (Entocort EC) 3 mg 24 hr capsuleIndications :Morbid Obesity (HCC),Colitis Microscopic Take 2 capsules (6 mg total) by mouth daily. 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 Do not crush or chew. 90 tablet 3 4 nitroglycerin (NITROSTAT) 0.4 mg SL tabletIndications: angina Place 1 tablet (0.4 mg total) under the tongue every 5 (five) minutes as needed for chest pain Indications: angina, a type of chest pain. 25 tablet 11 2 rosuvastatin (CRESTOR) 20 mg tabletIndications: Hyperlipidemia Take 1 tablet (20 mg total) by mouth daily. 90 tablet 3 4 traZODone (DESYREL) 50 mg tabletIndications: Insomnia Take 1 tablet (50 mg total) by mouth at bedtime as needed for sleep. 90 tablet 3 4 acetaminophen (TYLENOL) 325 mg tablet Take 650 mg by mouth every 4 (four) hours as needed. 10/20/19 24 buPROPion XL (Wellbutrin XL) 150 mg 24 hr tablet Take 3 tablets (450 mg total) by mouth every morning. 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 90 tablet 3 3 10/20/19 24 loperamide (IMODIUM A-D) 2 mg capsule 3 10/20/19 24 valsartan (DIOVAN) 40 mg tablet TAKE 1/2 TABLET BY MOUTH 2 TIMES A DAY 90 tablet 1 4 12/06/19 24 warfarin (Jantoven) 2 mg tabletIndications: Cardiomyopathy Dilated (HCC),Chronic Systolic (Congestive) Heart Failure (HCC),Thrombus Intracardiac,Retirement (Current) Anticoagulant Treatment,Monitori ng For Therapeutic Drug Therapy Please take as directed by your Anticoagulation Clinic. 112 tablet 3 4 10/20/19 24 documented as of this encounter Plan of Treatment Upcoming Encounters Date Type Department Care Team (Late st Contact Info) Description 01/19/2024 3:30 PM QUALITY ASSURANCE TESTER Nurse Only Department of Family Medicine, [facility], in [place], [place] [address] [place] [phone] documented as of this encounter Goals Goal Patient Goal Type Associated Problems Recent Progress Patient-Stated? Author Blood Pressure < 140/90 Blood Pressure 138/77(01/05 3:23 PM CDT) No [employer] ROsvaldoN. Do one productive activity per day General On track(2018 1:31 PM CDT) Yes Teodora Horvath, R.N. 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 Note: Pt will look into attending Senior vitality group at [facility] starting in November 20 went to funerals, talked with another lady she did not know there, doing swinging [place], swim aerobics, visited her son 11/23/18 went to [place], going to [place] to visit [place], going to [place] 12/07/18 [place] mom and went to concert in [place]. Made a new friend. Hemoglobin A1c < 7.0 Result Component 9.9(05/06/19 24 1:03 PM QUALITY ASSURANCE TESTER) No [employer] King ROsvaldoN. PHQ-9 Total Score (max 27) < 5 Symptom Management 16( 4 2:19 PM CDT) No Teodora Horvath R.N. 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 High intensity warfarin therapeutic range: 2.5 to 3.5 Blood (Blood, Capillary) 10/15/2023 10:59 AM CDT 10/15/2023 10:59 AM CDT us Mich Luevano D.O. 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 [address] [place] [phone] PCP - General 09/12/22 documented as of this encounter
[2024-01-11 04:39] LABS: PCR FLU A Negative PCR FLU A (Negative); PCR FLU B Negative PCR FLU B (Negative); PCR RSV Negative PCR RSV (Negative); SARS PCR* Negative SARS-CoV-2 (Negative)
[2024-01-11 04:44] LABS: Creatine Kinase* 99 U/L (41-117)
--- NOTE | 2024-01-11 05:02 | CRLHL7_ITS ---
For Patients: As a result of the Century Cures Act, medical imaging exams and procedure reports are released immediately into your electronic medical record. You may view this report before your referring provider. If you have questions, please contact your health care provider. INDICATION: Fall, weakness, groin abscess and sepsis TECHNIQUE: Axial images were obtained from the diaphragm to the pubic symphysis. Reformats were obtained in the coronal and sagittal plane. IV Contrast: 91 cc Omnipaque 350 Oral Contrast: None COMPARISON: None. FINDINGS: Lower chest: Scattered areas of discoid atelectasis at the lung bases. Minimal outpouching of the left lung posteriorly adjacent to the rib surgical site. Status post left mastectomy. Liver: Unremarkable. Normal in size and attenuation. No masses. Gallbladder and bile ducts: Borderline diameter of the common duct measuring 9 millimeters with prominent gallbladder distention and large stone within the gallbladder lumen. Gallbladder wall thickness is borderline. Mild intrahepatic biliary dilatation. Note is made of a prominent duodenal diverticulum adjacent to the papilla. Spleen: Unremarkable. Normal in size without mass. Pancreas: Moderate pancreatic atrophy. Adrenal glands: Unremarkable. No nodules. Kidneys: Symmetric renal enhancement without hydronephrosis. Mild left renal scarring. Vasculature: Atherosclerosis without abdominal aortic aneurysm. GI tract: The stomach is unremarkable. No dilated loops of large or small intestine with colonic diverticulosis noted. Normal appendix. Pelvis: Air throughout the endometrial cavity. No adnexal masses. Skin defect in the left inguinal region with slight adjacent skin thickening without evidence of abscess. Bones: Probably old right 7th rib fracture. Status post plate and screw fixation of the left 8th rib posteriorly. Old left 9th rib fracture posteromedially. Intramuscular lipoma within the right obturator musculature. Old left iliac wing fracture. IMPRESSION: 1. Left inguinal skin defect consistent with the given history of groin infection although without evidence of an abscess. Minimal adjacent skin thickening. 2. Cholelithiasis with prominent gallbladder distention, borderline common duct dilatation intrahepatic biliary dilatation. Right upper quadrant ultrasound suggested to assess for cholecystitis. Note that there can be some compression on the distal common duct secondary to a large duodenal diverticulum adjacent to the papilla. 3. Colonic diverticulosis without evidence of diverticulitis. 4. Old rib and left iliac wing fractures as above. Please note that all CT scans at this facility use dose modulation, iterative reconstruction, and/or weight-based dosing when appropriate to reduce radiation dose to as low as reasonably achievable. Dictated by Reji Blank MD @ 01/11/2024 6:25:34 AM (Electronically Signed)
--- NOTE | 2024-01-11 06:36 | US_ITS ---
Patient: RK CONRAD Facility:?[facility] Patient ID:?[id number] Site Patient ID:?[id number]. Site :?[id number] Study:?US-Abdomen GALLBLADDER-01/11/2024 7:04:09 AM Ordering Physician:Alyson Wells Final Report: Indication: Infection. Weakness. Abnormal CT. Technique: Sonography of the abdomen was performed limited to the structures discussed below Comparison: Limited portions of a CT from January 11, 2024 Findings: The gallbladder is distended. Wall thickness is abnormal at 5 millimeters. There is no pericholecystic fluid. A large stone is noted measuring about 6.9 centimeters. There was no reported sonographic Mathew`s sign. The common bile duct is dilated at 1.2 centimeters. The liver was not specifically studied on this exam but there were prominent intrahepatic ducts on the CT. The findings are concerning for acute cholecystitis in the appropriate clinical setting. Due to the intrahepatic biliary ductal dilation, it is also possible that there is another form of obstructive cholangiopathy such as distal choledocholithiasis that is not visible either on the CT or the ultrasound. Consider MRCP. Impression: 1. Distended gallbladder containing a large stone. Wall thickness is abnormal but there is no pericholecystic fluid or sonographic Mathew sign. The common duct measures 1.2 centimeters which is abnormal. 2. There are dilated intrahepatic ducts on the recent CT. The liver was not specifically studied on this exam. 3. The findings are suggestive of acute cholecystitis in the appropriate clinical setting. The dilated ducts could also be due to obstructive cholangiopathy as an additional finding. This could be due to nonvisualized distal choledocholithiasis. 4. Consider MRCP for further evaluation. Dictated by Skyler Woods MD @ 01/11/2024 7:12:52 AM Signed by:?Skyler Woods MD @01/11/2024 7:12:52 AM (Electronic Signature)
[2024-01-11 06:47] LABS: Appearance Urine Cloudy (Clear); Bilirubin Urine Negative (Negative); Blood Urine 3+ (Negative); Color Urine Yellow (Yellow); Glucose Urine Trace (Negative); Ketones Urine 1+ (Negative); Leukocyte Esterase Urine 2+ (Negative); Nitrite Urine Negative (Negative); Protein Urine 2+ (Negative); Urobilinogen Urine 0.2 (0.2-1.0)
[2024-01-11] MEDS: ACETAMINOPHEN 325 MG TABLET 650 MG PO ×3 (07:04→22:29)
[2024-01-11 07:06] LABS: Amphetamine Screen Urine Negative (Negative); Barbiturate Screen Urine Negative (Negative); Benzodiazepines Screen Urine Negative (Negative); Cannabinoid Screen Urine Negative (Negative); Cocaine Screen Urine Negative (Negative); Methadone Screen Urine Negative (Negative); Methamphetamines Screen Urine Negative (Negative); Opiate Screen Urine Negative (Negative); Oxycodone Screen Urine Negative (Negative); Phencyclidine Screen Urine Negative (Negative); Tricyclic Antidepressant Urine Negative (Negative)
[2024-01-11 07:17] LABS: Bacteria Urine Many; RBC Urine >100 (0-2); Squamous Epithelial Cell Urine Moderate (None-Few); WBC Urine >100 (0-5)
[2024-01-11 07:29] LABS: Lactate* 1.7 mmol/L (0.5-1.9)
[2024-01-11 07:40] LABS: Troponin, Point-of-Care* 0.07 ng/ml (0.01-0.04)
[2024-01-11] MEDS: PIPERACILLIN/TAZOBACTAM 2.25 GM in 0.9 % SODIUM CHLORIDE Mini-bag 100 ML IVPB ×3 (07:43→20:03)
--- NOTE | 2024-01-11 07:49 | ED.NURSE ---
Report to JOHN Gamboa. Pt to go to room 245. Son left, but states he will return in a few hours. Pt does have a cellphone and bin of pills that remain w/ her.
--- NOTE | 2024-01-11 08:11 | CRLHL7_ITS ---
For Patients: As a result of the Century Cures Act, medical imaging exams and procedure reports are released immediately into your electronic medical record. You may view this report before your referring provider. If you have questions, please contact your health care provider. INDICATION: fall, weakness, abnormal CT and US TECHNIQUE: An MRCP, including 2D, 3D and maximum intensity projection imaging, was performed. COMPARISON: CT of the abdomen from January 11, 2024 FINDINGS: The common bile duct is smoothly marginated and measures up to 13 mm in diameter. The cystic duct is also mildly dilated. Common hepatic duct is also dilated with mild intrahepatic biliary ductal dilatation as well proximally. No stones identified within the dilated ducts. No definite stone at the distal aspect of the common bile duct although there is abrupt termination near the ampulla. No filling defect is evident. Gallbladder demonstrates a large gallstone measuring approximally 3.8 x 4.8 centimeters (7/). The pancreatic duct is mildly prominent. The liver is normal in size, shape and signal. The spleen, pancreas, adrenal glands and kidneys are within normal limits. No bowel abnormality, lymphadenopathy or free fluid is demonstrated. IMPRESSION: 1. Dilated common bile duct measuring up to 13 millimeters in diameter. No stone is identified within the common bile duct although there is abrupt termination near the ampulla. Consider further evaluation with ERCP. 2. Dilated cystic duct. Dilated common hepatic duct and mildly dilated proximal intrahepatic ducts. 3. Large gallstone within the gallbladder measuring up to 4.8 centimeters in diameter. No additional evidence for cholecystitis. Dictated by Laura Kim MD @ 01/11/2024 5:43:33 PM (Electronically Signed)
[2024-01-11] MEDS: ROSUVASTATIN CALCIUM 10 MG TABLET 20 MG PO (09:32)
[2024-01-11] MEDS: buPROPion XL 150 MG TABLET 300 MG PO (09:32)
[2024-01-11] MEDS: VALSARTAN 80 MG TABLET 20 MG PO ×2 (09:33→22:06)
[2024-01-11] MEDS: SODIUM CHLORIDE 0.9 % (FLUSH) 10 ML SYRINGE 5 ML IVF ×2 (09:33→20:03)
[2024-01-11] MEDS: METOPROLOL SUCCINATE (XL) 25 MG TAB PO (09:33)
[2024-01-11] MEDS: BUDESONIDE 3 MG PO (09:38)
[2024-01-11 10:11] LABS: Lipase* 243 U/L (23-300)
[2024-01-11 10:29] LABS: Magnesium* 0.8 mg/dL (1.5-2.6)
[2024-01-11] MEDS: INSULIN ASPART 100 UNIT/ML SUBCUT ×3 (11:30→22:07)
[2024-01-11] MEDS: MAGNESIUM IV 4 GM/100 ML PIGGYBACK IVPB (11:30)
--- NOTE | 2024-01-11 13:08 | REH.PT ---
Per MD hold on PT/OT evals today, recheck in AM if evals warranted.
--- NOTE | 2024-01-11 14:28 | PM.IMHP1 ---
Hospitalist- H&P: MARIO History of Present Illness Date Seen: 01/11/24 Chief complaint: fall,dizziness Narrative: Jeanine Montague is a 83 year old female admitted through the emergency department with a few days of weakness poor appetite and now 2 falls at home. She denies any injury with her falls. She reports that she has had a few days were she has just been feeling weak and tired and more unsteady on her feet. She has had a poor appetite. Initially denied any abdominal pain but her daughter notes that she has been reporting some abdominal pain. She has not had vomiting but she is eating poorly. She has had chronic loose stools. No blood in her stool. She has not had chest pain or shortness of breath. She is not aware of any fever. Initially it was suspected that her problems might be related to prescription for doxycycline that was started 5 days ago. She has had a small boil in her left groin and was started on doxycycline for this. Patient does not know her medications. Her daughter tells me what she has been setting up medications for her mom and it sounds like the patient has been getting 4 tablets of Wellbutrin XL 150 mg per day. The prescription was for 3 tablets or is 450 mg daily. Patient does not know much of her medical history so this is obtained from her son and daughter and the medical record. She has been living in [place] and getting healthcare through a [facility] in [place]. She has a history of heart failure with reduced ejection fraction . 04/10/2019 to she had an echocardiogram showing an ejection fraction of 30%. Her ejection fraction was as low as 18% when she was off her heart failure medications and improved to 45% after 3 weeks of medication adherence. This is presumably ischemic heart disease with a history of coronary disease and coronary stenting in the LAD in 2017. She also has valvular disease including severe mitral regurgitation, severe tricuspid regurgitation. Right-sided pressures in 2 years ago were 40 mmHg + right atrial pressure of 15 mmHg She is on chronic warfarin. She has a left ventricular thrombus discovered in 11/14/2020. She has been on chronic warfarin since that time.. Review of Systems Narrative: Other than the symptoms last few days she reports generally doing well. She has been living in [place] with her daughter and her daughter has been setting up her medications for her. Apparently recently she has been declining any therapy because she does not feel like it. She acknowledges some depression her mood and that is the reason for recent changes in her antidepressant therapy [facility] Medical History (Updated 01/11/24 @ 16:21 by Konrad Mcmillan MD) Left ventricular thrombus ?I51.3 - Intracardiac thrombosis, not elsewhere classified (ICD-10) Chronic diarrhea ?K52.9 - Noninfective gastroenteritis and colitis, unspecified (ICD-10) Prolonged QT interval ?R94.31 - Abnormal electrocardiogram [ECG] [EKG] (ICD-10) Hypertension ?I10 - Essential (primary) hypertension (ICD-10) CKD (chronic kidney disease) ?N18.9 - Chronic kidney disease, unspecified (ICD-10) History of falling ?Z91.81 - History of falling (ICD-10) VIOLET (obstructive sleep apnea) ?G47.33 - Obstructive sleep apnea (adult) (pediatric) (ICD-10) Diabetes mellitus, type 2 ?E11.9 - Type 2 diabetes mellitus without complications (ICD-10) CHF (congestive heart failure) ?I50.9 - Heart failure, unspecified (ICD-10) Cardiomyopathy ?I42.9 - Cardiomyopathy, unspecified (ICD-10) Surgical History (Updated 01/11/24 @ 14:53 by Konrad Mcmillan MD) History of coronary artery stent placement ?Z95.5 - Presence of coronary angioplasty implant and graft (ICD-10) History of modified radical mastectomy ?Z90.10 - Acquired absence of unspecified breast and nipple (ICD-10) Family History (Updated 01/11/24 @ 14:49 by Konrad Mcmillan MD) Mother Depression Breast cancer Social History (Updated 01/11/24 @ 14:55 by Konrad Mcmillan MD) Narrative: Originally lived in [place] and got healthcare through [facility]. Now moved to live with her daughter in [place]. Son is also in [place]. She is undecided about her code status. 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 She does not smoke. She occasionally drinks alcohol, less than once a week. She walks with a walker. What is your current living situation?: I presently have a place to live Problems where you live: no known problems Problems where you live details: No known problems In the past 12 months, utilities in danger of being shut off: no In past 12 months, lack of transportation kept you from medical appts, meetings, work, or getting things needed for daily living: no In the past 12 mos, have been you worried that your food would run out before you had money to buy more?: never true In the past 12 mos, the food you bought just didn't last and you didn't have money to buy more?: never true Highest level of school completed/degree received: Associate degree: academic program Smoking Status: Never smoker Do you use any of these nicotine containing products: None How often do you have a drink containing alcohol: monthly or less How many standard drinks containing alcohol do you have on a typical day: 1 or 2 How often do you have six or more drinks on one occasion: Never AUDIT-C Alcohol total score: 1 Non-prescribed substance use: denies use Caffeine: Yes How often does anyone, including family, friends and others, physically hurt you: never How often does anyone, including family, friends and others, insult or talk down to you: never How often does anyone, including family, friends and others, threaten you with harm: never How often does anyone, including family, friends and others, scream or curse at you: never Meds Home Medications and Allergies Home Medications ?Medication ?Instructions ?Recorded ?Confirmed ?Type aspirin 81 mg capsule 81 mg PO DAILY 01/11/24 01/11/24 History budesonide 3 mg 6 mg PO DAILY 01/11/24 01/11/24 History capsule,delayed,extended release bupropion HCl 150 mg 24 hr tablet, 300 mg PO DAILY 01/11/24 01/11/24 History extended release cefdinir 300 mg capsule 300 mg PO BID 01/11/24 01/11/24 History cyanocobalamin (vitamin B-12) 500 500 mcg PO DAILY 01/11/24 01/11/24 History mcg tablet doxycycline hyclate 100 mg capsule 100 mg PO BID 01/11/24 01/11/24 History metformin 500 mg tablet,extended 1,000 mg PO BID 01/11/24 01/11/24 History release 24 hr metoprolol succinate 25 mg 25 mg PO DAILY 01/11/24 01/11/24 History tablet,extended release 24 hr nystatin 100,000 unit/gram topical 1 applic topical BID 01/11/24 01/11/24 History powder (Klayesta) rosuvastatin 20 mg tablet 20 mg PO DAILY 01/11/24 01/11/24 History trazodone 50 mg tablet 50 mg PO HS PRN insomnia 01/11/24 01/11/24 History valsartan 40 mg tablet 20 mg PO BID 01/11/24 01/11/24 History warfarin 2 mg tablet 2 - 3 mg PO DAILY 01/11/24 01/11/24 History Allergies Allergy/AdvReac Type Severity Reaction Status Date / Time No Known Drug Allergies Allergy Verified 01/11/24 06:26 Exam Narrative: Exam Narrative: She is alert and appears in no distress. She is unable to answer most questions about recent past medical history. Head is without trauma. Oropharynx with dry mucous membranes and small airway. Neck is supple without mass or adenopathy. Respirations are clear to auscultation. She has diminished breath sounds. No wheezing. Cardiovascular: S1, S2 Const: Vital Signs, click to edit/add: Vital Signs - 24 hr 01/11/24 03:39 01/11/24 04:07 01/11/24 04:10 Temperature 97.8 F Pulse Rate 119 H 121 H Pulse Rate [Pulse Oximeter] 134 H Respiratory Rate 16 Blood Pressure Blood Pressure [Ri ght Arm] Blood Pressure [Ri ght Upper Arm] 102/72 Pulse Oximetry 98 97 95 Oxygen Delivery Me thod Room Air Oxygen Flow Rate 01/11/24 04:12 01/11/24 04:17 01/11/24 04:26 Temperature Pulse Rate 117 H Pulse Rate [Pulse Oximeter] 122 H Respiratory Rate 16 Blood Pressure 134/91 H Blood Pressure [Ri ght Arm] Blood Pressure [Ri ght Upper Arm] 136/77 Pulse Oximetry 97 92 Oxygen Delivery Me thod Room Air Oxygen Flow Rate 01/11/24 04:30 01/11/24 04:31 01/11/24 04:32 Temperature Pulse Rate 119 H 120 H 119 H Pulse Rate [Pulse Oximeter] Respiratory Rate 18 Blood Pressure 135/88 Blood Pressure [Ri ght Arm] Blood Pressure [Ri ght Upper Arm] Pulse Oximetry 95 92 92 Oxygen Delivery Me thod Oxygen Flow Rate 01/11/24 04:55 01/11/24 05:52 01/11/24 05:58 Temperature Pulse Rate 123 H 114 H Pulse Rate [Pulse Oximeter] Respiratory Rate Blood Pressure 140/60 H Blood Pressure [Ri ght Arm] Blood Pressure [Ri ght Upper Arm] Pulse Oximetry 96 93 99 Oxygen Delivery Me thod Nasal Cannula Oxygen Flow Rate 2 01/11/24 06:00 01/11/24 06:10 01/11/24 06:20 Temperature Pulse Rate 113 H 113 H 113 H Pulse Rate [Pulse Oximeter] Respiratory Rate Blood Pressure Blood Pressure [Ri ght Arm] Blood Pressure [Ri ght Upper Arm] Pulse Oximetry 99 99 98 Oxygen Delivery Me thod Oxygen Flow Rate 01/11/24 06:30 01/11/24 06:51 01/11/24 06:53 Temperature Pulse Rate 111 H 118 H 117 H Pulse Rate [Pulse Oximeter] Respiratory Rate Blood Pressure 122/63 Blood Pressure [Ri ght Arm] Blood Pressure [Ri ght Upper Arm] Pulse Oximetry 97 99 94 Oxygen Delivery Me thod Oxygen Flow Rate 01/11/24 07:00 01/11/24 07:10 01/11/24 07:20 Temperature Pulse Rate 110 H 105 H 110 H Pulse Rate [Pulse Oximeter] Respiratory Rate Blood Pressure Blood Pressure [Ri ght Arm] Blood Pressure [Ri ght Upper Arm] Pulse Oximetry 99 99 100 Oxygen Delivery Me thod Oxygen Flow Rate 01/11/24 07:30 01/11/24 07:50 01/11/24 07:50 Temperature Pulse Rate 114 H Pulse Rate [Pulse Oximeter] Respiratory Rate Blood Pressure Blood Pressure [Ri ght Arm] Blood Pressure [Ri ght Upper Arm] Pulse Oximetry 99 98 98 Oxygen Delivery Me thod Nasal Cannula Oxygen Flow Rate 2 01/11/24 09:00 01/11/24 09:00 01/11/24 10:35 Temperature 97.8 F Pulse Rate 100 Pulse Rate [Pulse Oximeter] Respiratory Rate 18 18 Blood Pressure Blood Pressure [Ri ght Arm] 146/72 H Blood Pressure [Ri ght Upper Arm] Pulse Oximetry 93 93 Oxygen Delivery Me thod Room Air Room Air Oxygen Flow Rate 01/11/24 11:00 Temperature 97.8 F Pulse Rate Pulse Rate [Pulse Oximeter] 95 Respiratory Rate 18 Blood Pressure Blood Pressure [Ri ght Arm] 106/58 L Blood Pressure [Ri ght Upper Arm] Pulse Oximetry 95 Oxygen Delivery Me thod Room Air Oxygen Flow Rate Hospitalist - H&P: Result Labs Labs: Short CBC 01/11/24 Range/Units 03:50 WBC 15.86 H (4.50-11.00) K/uL Hgb 11.6 L (12.0-16.0) gm/dL Hct 34.9 (33.0-51.0) % Plt Count 375 (140-440) K/uL BMP 01/11/24 03:50 Sodium 132 L Potassium 3.3 L Chloride 93 L Carbon Dioxide 22 BUN 30 Creatinine 1.3 Glucose 241 H Calcium 8.8 Cardiac Enzymes 01/11/24 Range/Units 03:50 Total Creatine Kinase 99 (41-117) U/L Liver Function 01/11/24 Range/Units 03:50 Total Bilirubin 0.5 (0.1-1.5) mg/dL AST 27 (12-35) U/L ALT 23 (4-35) U/L Alkaline Phosphatase 125 (40-150) U/L Albumin 4.1 (3.3-5.0) g/dL Urine 01/11/24 Range/Units 06:30 Urine Color Yellow (Yellow) Urine Appearance Cloudy A (Clear) Urine pH 5.0 (5.0-8.5) Ur Specific [place] 1.010 (1.000-1.030) Urine Protein 2+ A (Negative) Urine Glucose (UA) Trace A (Negative) ECG Attestation: I personally reviewed and interpreted this ECG as follows: (Regular wide complex tachycardia, probably sinus tachycardia, with right bundle branch block and left posterior fascicular block.) ECG interpretation date: 01/11/24 Imaging US - abdomen: Radiologist's impression: Indication: Infection. Weakness. Abnormal CT. Technique: Sonography of the abdomen was performed limited to the structures discussed below Comparison: Limited portions of a CT from January 11, 2024 Findings: The gallbladder is distended. Wall thickness is abnormal at 5 millimeters. There is no pericholecystic fluid. A large stone is noted measuring about 6.9 centimeters. There was no reported sonographic Mathew`s sign. The common bile duct is dilated at 1.2 centimeters. The liver was not specifically studied on this exam but there were prominent intrahepatic ducts on the CT. The findings are concerning for acute cholecystitis in the appropriate clinical setting. Due to the intrahepatic biliary ductal dilation, it is also possible that there is another form of obstructive cholangiopathy such as distal choledocholithiasis that is not visible either on the CT or the ultrasound. Consider MRCP. Impression: 1. Distended gallbladder containing a large stone. Wall thickness is abnormal but there is no pericholecystic fluid or sonographic Mathew sign. The common duct measures 1.2 centimeters which is abnormal. 2. There are dilated intrahepatic ducts on the recent CT. The liver was not specifically studied on this exam. 3. The findings are suggestive of acute cholecystitis in the appropriate clinical setting. The dilated ducts could also be due to obstructive cholangiopathy as an additional finding. This could be due to nonvisualized distal choledocholithiasis. 4. Consider MRCP for further evaluation. Chest x-ray: Radiologist's impression: Indication: Fall, weakness and dizziness Technique: Chest 2 views Comparison: None Findings/Impression: Cardiovascular and mediastinum: Heart size and vasculature are normal in caliber and appearance. Mediastinum is within normal limits. Lungs and pleural spaces: Lungs are clear. No sign of infiltrate or mass. No sign of pleural effusion. No pneumothorax. Bones and soft tissues: Status post plate and screw fixation of the left 8th rib posteriorly. Old right 6th rib fracture. CT scan - abdomen: Radiologist's impression: INDICATION: Fall, weakness, groin abscess and sepsis TECHNIQUE: Axial images were obtained from the diaphragm to the pubic symphysis. Reformats were obtained in the coronal and sagittal plane. IV Contrast: 91 cc Omnipaque 350 Oral Contrast: None COMPARISON: None. FINDINGS: Lower chest: Scattered areas of discoid atelectasis at the lung bases. Minimal outpouching of the left lung posteriorly adjacent to the rib surgical site. Status post left mastectomy. Liver: Unremarkable. Normal in size and attenuation. No masses. Gallbladder and bile ducts: Borderline diameter of the common duct measuring 9 millimeters with prominent gallbladder distention and large stone within the gallbladder lumen. Gallbladder wall thickness is borderline. Mild intrahepatic biliary dilatation. Note is made of a prominent duodenal diverticulum adjacent to the papilla. Spleen: Unremarkable. Normal in size without mass. Pancreas: Moderate pancreatic atrophy. Adrenal glands: Unremarkable. No nodules. Kidneys: Symmetric renal enhancement without hydronephrosis. Mild left renal scarring. Vasculature: Atherosclerosis without abdominal aortic aneurysm. GI tract: The stomach is unremarkable. No dilated loops of large or small intestine with colonic diverticulosis noted. Normal appendix. Pelvis: Air throughout the endometrial cavity. No adnexal masses. Skin defect in the left inguinal region with slight adjacent skin thickening without evidence of abscess. Bones: Probably old right 7th rib fracture. Status post plate and screw fixation of the left 8th rib posteriorly. Old left 9th rib fracture posteromedially. Intramuscular lipoma within the right obturator musculature. Old left iliac wing fracture. IMPRESSION: 1. Left inguinal skin defect consistent with the given history of groin infection although without evidence of an abscess. Minimal adjacent skin thickening. 2. Cholelithiasis with prominent gallbladder distention, borderline common duct dilatation intrahepatic biliary dilatation. Right upper quadrant ultrasound suggested to assess for cholecystitis. Note that there can be some compression on the distal common duct secondary to a large duodenal diverticulum adjacent to the papilla. 3. Colonic diverticulosis without evidence of diverticulitis. 4. Old rib and left iliac wing fractures as above. Assessment and Plan Assessment and plan (1) Acute calculous cholecystitis: Problem comment: CT and ultrasound suggest cholecystitis. Patient has constitutional symptoms of illness including abdominal pain in loss of appetite. Will treat as cholecystitis. Obtain surgical consult. Obtain MRCP to evaluate for obstructing stone. Status: Acute (2) Sepsis: Problem comment: Patient is tachycardic, elevated lactate, elevated white blood count, suspected cholecystitis as the source. Status: Acute (3) Congestive heart failure: Problem comment: History of heart failure with reduced ejection fraction as noted above. Obtain echo. Optimize treatment before and after surgery. Status: Acute (4) Excessive anticoagulation: Problem comment: INR is 4.79. Likely due to poor oral intake in the last few days while continuing normal warfarin dosing. Vitamin K to reverse anticoagulation pending possible surgery Status: Acute (5) Left ventricular thrombus: Problem comment: Diagnosed at least 2 years ago on chronic warfarin therapy. Status: Acute (6) Chronic diarrhea: Problem comment: She has been diagnosed with irritable bowel syndrome in the past she is being treated with oral budesonide for this. She is not aware of having colonoscopy or a diagnosis of any type of colitis. Unclear whether her metformin therapy is making this worse. She does use antidiarrheal medicine as needed Status: Acute (7) Diabetes mellitus, type 2: Problem comment: Hold oral hypoglycemics pending surgery. Sliding scale insulin. Consider SGLT2 inhibitors for diabetes and heart failure. Consider stopping or reducing metformin due to diarrhea. Status: Acute Plan Patient is admitted to the hospital for sepsis thought secondary to cholecystitis with diabetes mellitus and heart failure with reduced ejection fraction. Treat with IV antibiotics. Surgical consult. Reverse anticoagulation. Consider medication adjustment to optimize management of diabetes heart failure and diarrhea. Total Time Spent Total Time Spent: Total time spent today is 90 minutes in discussion with patient, family and other providers ongoing evaluation management of multiple problems noted above.
[2024-01-11] MEDS: POTASSIUM BICARB 25 MEQ EFFERVESCENT TAB 50 MEQ PO (16:08)
--- NOTE | 2024-01-11 17:28 | P.GSCN_ITS ---
History of Present Illness Consult details Date Seen: 01/11/24 Consult date: 01/11/24 Narrative: The patient is an 83-year-old female who presented to the emergency department overnight with weakness and falls at home. In the emergency department she had workup which included a CT scan of the abdomen and pelvis, looking for possible abscess as she has had a recent history of a left groin boil which was treated with doxycycline. She was noted to have a distended gallbladder with a large gallstone. Ultrasound confirmed this. She did have some wall thickening but no pericholecystic fluid and negative sonographic Mathew sign. She was noted to have intrahepatic biliary dilatation on CT as well as dilated common bile duct as well. LFTs were normal, however she did have an elevated lactate and white blood cell count on admission. Her daughter states that she has had some abdominal pain. The patient states that when she was on antibiotics for her boil in her groin that they made her feel sick and nauseated. This was about a week ago. She states now that her appetite is better. She states that her bowel movements have been normal for her but describes irritable bowel syndrome which for her is loose stool. No fevers. She previously had been seen at [facility]. She has a history of heart failure with reduced ejection fraction. In 2020 this was as low as 18% but improved to 45% subsequently. She also has a history of coronary artery stenting in 2016. She takes Coumadin for a history of a left ventricular thrombus diagnosed in 2020. She lives in [place] with her daughter. [facility] Medical History (Updated 01/11/24 @ 16:21 by Konrad Mcmillan MD) Left ventricular thrombus ?I51.3 - Intracardiac thrombosis, not elsewhere classified (ICD-10) Chronic diarrhea ?K52.9 - Noninfective gastroenteritis and colitis, unspecified (ICD-10) Prolonged QT interval ?R94.31 - Abnormal electrocardiogram [ECG] [EKG] (ICD-10) Hypertension ?I10 - Essential (primary) hypertension (ICD-10) CKD (chronic kidney disease) ?N18.9 - Chronic kidney disease, unspecified (ICD-10) History of falling ?Z91.81 - History of falling (ICD-10) VIOLET (obstructive sleep apnea) ?G47.33 - Obstructive sleep apnea (adult) (pediatric) (ICD-10) Diabetes mellitus, type 2 ?E11.9 - Type 2 diabetes mellitus without complications (ICD-10) CHF (congestive heart failure) ?I50.9 - Heart failure, unspecified (ICD-10) Cardiomyopathy ?I42.9 - Cardiomyopathy, unspecified (ICD-10) Surgical History (Updated 01/11/24 @ 14:53 by Konrad Mcmillan MD) History of coronary artery stent placement ?Z95.5 - Presence of coronary angioplasty implant and graft (ICD-10) History of modified radical mastectomy ?Z90.10 - Acquired absence of unspecified breast and nipple (ICD-10) Family History (Updated 01/11/24 @ 14:49 by Konrad Mcmillan MD) Mother Depression Breast cancer Social History (Updated 01/11/24 @ 14:55 by Konrad Mcmillan MD) Narrative: Originally lived in [place] and got healthcare through [facility]. Now moved to live with her daughter in [place]. Son is also in [place]. She is undecided about her code status. She wants her son and daughter to be healthcare power of employment law attorney. She does not smoke. She occasionally drinks alcohol, less than once a week. She walks with a walker. What is your current living situation?: I presently have a place to live Problems where you live: no known problems Problems where you live details: No known problems In the past 12 months, utilities in danger of being shut off: no In past 12 months, lack of transportation kept you from medical appts, meetings, work, or getting things needed for daily living: no In the past 12 mos, have been you worried that your food would run out before you had money to buy more?: never true In the past 12 mos, the food you bought just didn't last and you didn't have money to buy more?: never true Highest level of school completed/degree received: Associate degree: academic program Smoking Status: Never smoker Do you use any of these nicotine containing products: None How often do you have a drink containing alcohol: monthly or less How many standard drinks containing alcohol do you have on a typical day: 1 or 2 How often do you have six or more drinks on one occasion: Never AUDIT-C Alcohol total score: 1 Non-prescribed substance use: denies use Caffeine: Yes How often does anyone, including family, friends and others, physically hurt you : never How often does anyone, including family, friends and others, insult or talk down to you: never How often does anyone, including family, friends and others, threaten you with harm: never How often does anyone, including family, friends and others, scream or curse at you: never Meds Home Medications and Allergies Home Medications ?Medication ?Instructions ?Recorded ?Confirmed ?Type aspirin 81 mg capsule 81 mg PO DAILY 01/11/24 01/11/24 History budesonide 3 mg 6 mg PO DAILY 01/11/24 01/11/24 History capsule,delayed,extended release bupropion HCl 150 mg 24 hr tablet, 300 mg PO DAILY 01/11/24 01/11/24 History extended release cefdinir 300 mg capsule 300 mg PO BID 01/11/24 01/11/24 History cyanocobalamin (vitamin B-12) 500 500 mcg PO DAILY 01/11/24 01/11/24 History mcg tablet doxycycline hyclate 100 mg capsule 100 mg PO BID 01/11/24 01/11/24 History metformin 500 mg tablet,extended 1,000 mg PO BID 01/11/24 01/11/24 History release 24 hr metoprolol succinate 25 mg 25 mg PO DAILY 01/11/24 01/11/24 History tablet,extended release 24 hr nystatin 100,000 unit/gram topical 1 applic topical BID 01/11/24 01/11/24 History powder (Klayesta) rosuvastatin 20 mg tablet 20 mg PO DAILY 01/11/24 01/11/24 History trazodone 50 mg tablet 50 mg PO HS PRN insomnia 01/11/24 01/11/24 History valsartan 40 mg tablet 20 mg PO BID 01/11/24 01/11/24 History warfarin 2 mg tablet 2 - 3 mg PO DAILY 01/11/24 01/11/24 History Allergies Allergy/AdvReac Type Severity Reaction Status Date / Time No Known Drug Allergies Allergy Verified 01/11/24 06:26 Exam Narrative: Exam Narrative: General appearance: Alert, cooperative, and in no distress Eyes: PERRLA, eye lids clear, and sclera white HENT Head: Normocephalic Ears: External ears normal Pulmonary: Breathing nonlabored on room air Cardiovascular Heart: Regular rate Extremities: warm and well perfused Gastrointestinal Abdominal: No scars. Patient is nontender in the upper abdomen, particularly in the right upper quadrant. Negative Mathew sign. She has a notable pannus with moisture in the skin fold, particularly on the left where she has a small pinpoint opening from recent boil. No surrounding cellulitis. No purulent drainage. Musculoskeletal: Extremities: Upper: Both upper extremities have normal joint range of motion and intact strength. Lower: Both lower extremities have normal joint range of motion and intact strength. Skin: Normal skin color, texture, and turgor. Neurologic: No focal deficits Psychiatric: Alert, oriented, cooperative, normal affect. Const: Vital Signs, click to edit/add: Vital Signs - 24 hr 01/11/24 03:39 01/11/24 04:07 01/11/24 04:10 Temperature 97.8 F Pulse Rate 119 H 121 H Pulse Rate [Pulse Oximeter] 134 H Respiratory Rate 16 Blood Pressure Blood Pressure [Ri ght Arm] Blood Pressure [Ri ght Upper Arm] 102/72 Pulse Oximetry 98 97 95 Oxygen Delivery Me thod Room Air Oxygen Flow Rate 01/11/24 04:12 01/11/24 04:17 01/11/24 04:26 Temperature Pulse Rate 117 H Pulse Rate [Pulse Oximeter] 122 H Respiratory Rate 16 Blood Pressure 134/91 H Blood Pressure [Ri ght Arm] Blood Pressure [Ri ght Upper Arm] 136/77 Pulse Oximetry 97 92 Oxygen Delivery Me thod Room Air Oxygen Flow Rate 01/11/24 04:30 01/11/24 04:31 01/11/24 04:32 Temperature Pulse Rate 119 H 120 H 119 H Pulse Rate [Pulse Oximeter] Respiratory Rate 18 Blood Pressure 135/88 Blood Pressure [Ri ght Arm] Blood Pressure [Ri ght Upper Arm] Pulse Oximetry 95 92 92 Oxygen Delivery Me thod Oxygen Flow Rate 01/11/24 04:55 01/11/24 05:52 01/11/24 05:58 Temperature Pulse Rate 123 H 114 H Pulse Rate [Pulse Oximeter] Respiratory Rate Blood Pressure 140/60 H Blood Pressure [Ri ght Arm] Blood Pressure [Ri ght Upper Arm] Pulse Oximetry 96 93 99 Oxygen Delivery Me thod Nasal Cannula Oxygen Flow Rate 2 01/11/24 06:00 01/11/24 06:10 01/11/24 06:20 Temperature Pulse Rate 113 H 113 H 113 H Pulse Rate [Pulse Oximeter] Respiratory Rate Blood Pressure Blood Pressure [Ri ght Arm] Blood Pressure [Ri ght Upper Arm] Pulse Oximetry 99 99 98 Oxygen Delivery Me thod Oxygen Flow Rate 01/11/24 06:30 01/11/24 06:51 01/11/24 06:53 Temperature Pulse Rate 111 H 118 H 117 H Pulse Rate [Pulse Oximeter] Respiratory Rate Blood Pressure 122/63 Blood Pressure [Ri ght Arm] Blood Pressure [Ri ght Upper Arm] Pulse Oximetry 97 99 94 Oxygen Delivery Me thod Oxygen Flow Rate 01/11/24 07:00 01/11/24 07:10 01/11/24 07:20 Temperature Pulse Rate 110 H 105 H 110 H Pulse Rate [Pulse Oximeter] Respiratory Rate Blood Pressure Blood Pressure [Ri ght Arm] Blood Pressure [Ri ght Upper Arm] Pulse Oximetry 99 99 100 Oxygen Delivery Me thod Oxygen Flow Rate 01/11/24 07:30 01/11/24 07:50 01/11/24 07:50 Temperature Pulse Rate 114 H Pulse Rate [Pulse Oximeter] Respiratory Rate Blood Pressure Blood Pressure [Ri ght Arm] Blood Pressure [Ri ght Upper Arm] Pulse Oximetry 99 98 98 Oxygen Delivery Me thod Nasal Cannula Oxygen Flow Rate 2 01/11/24 09:00 01/11/24 09:00 01/11/24 10:35 Temperature 97.8 F Pulse Rate 100 Pulse Rate [Pulse Oximeter] Respiratory Rate 18 18 Blood Pressure Blood Pressure [Ri ght Arm] 146/72 H Blood Pressure [Ri ght Upper Arm] Pulse Oximetry 93 93 Oxygen Delivery Me thod Room Air Room Air Oxygen Flow Rate 01/11/24 11:00 01/11/24 15:00 01/11/24 15:00 Temperature 97.8 F 98.1 F Pulse Rate Pulse Rate [Pulse Oximeter] 95 88 88 Respiratory Rate 18 18 18 Blood Pressure Blood Pressure [Ri ght Arm] 106/58 L 108/66 Blood Pressure [Ri ght Upper Arm] Pulse Oximetry 95 95 Oxygen Delivery Me thod Room Air Room Air Oxygen Flow Rate Results Labs Labs: White blood cell count was noted to be 15. She is mildly anemic with a hemoglobin of 11.6. INR was elevated at 4.79. Sodium 132 Potassium 3.3. Glucose elevated at 241. Lactate 4.1 this came down to 1.7 with fluids. Magnesium was low at 0.8 CRP 1.6. LFTs including bilirubin were all within normal limits. Total bilirubin in particular was 0.5. Lipase was 243. Troponin noted to be 0.05 and 0.07 on recheck. UA had moderate epithelial cells red cells, white blood cells and positive leukocyte esterase as well as blood and ketones. Imaging Abdomen CT scan report/results: report reviewed and image reviewed Abdominal ultrasound report/results: report reviewed and image reviewed Additional studies: CT scan of the abdomen pelvis done today: IMPRESSION: 1. Left inguinal skin defect consistent with the given history of groin infection although without evidence of an abscess. Minimal adjacent skin thickening. 2. Cholelithiasis with prominent gallbladder distention, borderline common duct dilatation intrahepatic biliary dilatation. Right upper quadrant ultrasound suggested to assess for cholecystitis. Note that there can be some compression on the distal common duct secondary to a large duodenal diverticulum adjacent to the papilla. 3. Colonic diverticulosis without evidence of diverticulitis. 4. Old rib and left iliac wing fractures as above. Ultrasound of the abdomen done today: Impression: 1. Distended gallbladder containing a large stone. Wall thickness is abnormal but there is no pericholecystic fluid or sonographic Mathew sign. The common duct measures 1.2 centimeters which is abnormal. 2. There are dilated intrahepatic ducts on the recent CT. The liver was not specifically studied on this exam. 3. The findings are suggestive of acute cholecystitis in the appropriate clinical setting. The dilated ducts could also be due to obstructive cholangiopathy as an additional finding. This could be due to nonvisualized distal choledocholithiasis. 4. Consider MRCP for further evaluation. Progress Note:A&P Assessment and plan (1) Excessive anticoagulation: Status: Acute (2) Left ventricular thrombus: Status: Acute (3) Chronic diarrhea: Status: Acute (4) Diabetes mellitus, type 2: Status: Acute (5) Congestive heart failure: Status: Acute (6) Acute calculous cholecystitis: Status: Acute Plan The patient is an 83-year-old female with multiple comorbidities including heart failure, diabetes, and left ventricular thrombus on chronic anticoagulation with a history of weakness and falls. She has a distended gallbladder and large gallstone, suggested of cholecystitis though she is minimally symptomatic from this. Currently she is eating regular diet has no abdominal pain on exam and is feeling well overall. MRCP was obtained today. Waiting on final read. This was done secondary to marked biliary dilatation, however fortunately the patient's LFTs and lipase are within normal limits. Would recommend completion a cardiac workup as you are doing. If the patient has significant heart failure which would put her at increased risk for general anesthesia, then I would not recommend cholecystectomy. Given her clinical picture, it is not entirely clear to me that she does actually have cholecystitis though certainly in an elderly patient with diabetes she could have fairly severe cholecystitis with minimal symptoms. Will reassess tomorrow after echo and MRCP report and discuss whether not patient is a good surgical candidate and cholecystectomy is warranted. Recommend holding warfarin as you are as well as reversal given supratherapeutic range Resuscitation and correction of electrolytes Okay for diet since she seems to be tolerating this well. Continue IV antibiotics for presumed infection, cholecystitis versus urinary tract infection versus other.
[2024-01-11] MEDS: TRAZODONE HCL 50 MG TABLET PO (22:25)
[2024-01-12] VITALS (8 sets, daily range): BP systolic 114–140; BP diastolic 62–84; PULSE 71–85; RESP 16–18; TEMP 36.4–36.7; O2SAT 95–99; BMI 35.1
[2024-01-12] MEDS: PIPERACILLIN/TAZOBACTAM 2.25 GM in 0.9 % SODIUM CHLORIDE Mini-bag 100 ML IVPB ×4 (02:05→19:59)
[2024-01-12] MEDS: MORPHINE 4 MG/ML INJ 2 MG IVP (02:24)
[2024-01-12] MEDS: ACETAMINOPHEN 325 MG TABLET 650 MG PO ×2 (04:44→11:41)
--- NOTE | 2024-01-12 06:26 | PC.NURSE ---
End of shift note [id number]: Pt noted to be alert & oriented x 4. She has been continent of bladder and transfers with assist of 1 using FWW and gait belt. Pt requested PRN Tylenol for back pain and Trazodone last evening with both medications administered. She also received PRN Morphine and another dose of PRN Tylenol for generalized pain. 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 Scabbed abrasion to L knee CAYETANO and protective dressings placed over scabbed abrasions to R forearm. Pt also has scattered bruising noted to bilateral upper extremities. VSS and pt has been afebrile and on RA throughout the shift. Pt on tele with first degree AV block and wide QRS noted which are note new findings compared to previous tele strips and EKG reading. Pt currently receiving IV antibiotic. Call light within reach and bed alarm on.?Pt has been using call light appropriately when needing assistance.
[2024-01-12 06:36] LABS: Basophils Absolute Auto 0.04 K/uL (0.00-0.30); Basophils Percent Auto 0.5 % (0.0-3.0); Eosinophils Absolute Auto 0.13 K/uL (0.00-0.50); Eosinophils Percent Auto 1.5 % (0.0-7.0); Hematocrit* 28.3 % (33.0-51.0); Hemoglobin* 9.5 gm/dL (12.0-16.0); Immature Granulocytes Abs Auto 0.03 K/uL (0.00-0.30); Immature Granulocytes Pct Auto 0.4 %; Lymphocytes Percent Auto 19.2 % (20-44); Mean Corpuscular HGB Conc 34 gm/dL (32-36); Mean Corpuscular Hemoglobin 31 pg (26-34); Mean Corpuscular Volume 93 fL (80-100); Monocytes Percent Auto 6.2 % (0.0-11.0); Neutrophils Percent Auto 72.2 % (42.0-72.0); Platelet Count* 278 K/uL (140-440); RDW Coefficient of Variation % 14.5 % (11.5-15.5); Red Blood Count* 3.04 m/uL (4.00-5.20); White Blood Count* 8.43 K/uL (4.50-11.00)
[2024-01-12 06:37] LABS: Slide Review Reflex No
[2024-01-12 06:50] LABS: Albumin* 3.2 g/dL (3.3-5.0); Chloride* 96 mmol/L (96-114); Sodium* 130 mmol/L (135-149)
[2024-01-12 06:51] LABS: Potassium* 3.6 mmol/L (3.6-5.1)
[2024-01-12 06:52] LABS: Estimated Glomerular Filt Rate 57 ml/min
[2024-01-12 06:53] LABS: Alkaline Phosphatase* 101 U/L (40-150); Anion Gap 8 mEq/L (7-15); Aspartate Amino Transferase* 19 U/L (12-35); Bilirubin Direct* 0.2 mg/dL (0.0-0.5); Bilirubin Total* 0.4 mg/dL (0.1-1.5); Blood Urea Nitrogen* 23 mg/dL (7-30); Carbon Dioxide* 26 mmol/L (20-32); Total Protein* 5.8 g/dL (6.0-8.3)
[2024-01-12 06:54] LABS: Alanine Aminotransferase* 16 U/L (4-35); Calcium* 8.1 mg/dL (8.4-10.6); Glucose* 147 mg/dL (60-115)
[2024-01-12 06:56] LABS: C Reactive Protein* 3.4 mg/dL (0.5-1.0)
[2024-01-12 07:05] LABS: Troponin I* 0.04 ng/mL (0.01-0.04)
[2024-01-12 07:06] LABS: Hemoglobin A1C* 7.6 % (0-5.6)
[2024-01-12 07:20] LABS: INR 1.65 (0.91-1.10); Prothrombin Time 20.6 Seconds
[2024-01-12] MEDS: BUDESONIDE 3 MG PO (08:34)
[2024-01-12] MEDS: buPROPion XL 150 MG TABLET 300 MG PO (08:36)
[2024-01-12] MEDS: ROSUVASTATIN CALCIUM 10 MG TABLET 20 MG PO (08:36)
[2024-01-12] MEDS: METOPROLOL SUCCINATE (XL) 25 MG TAB PO (08:36)
[2024-01-12] MEDS: SODIUM CHLORIDE 0.9 % (FLUSH) 10 ML SYRINGE 5 ML IVF ×2 (08:37→20:46)
[2024-01-12] MEDS: VALSARTAN 80 MG TABLET 20 MG PO ×2 (10:33→20:45)
[2024-01-12] MEDS: ASPIRIN 81 MG TABLET EC PO (11:41)
[2024-01-12] MEDS: INSULIN ASPART 100 UNIT/ML SUBCUT ×3 (11:42→20:46)
[2024-01-12] MEDS: EMPAGLIFLOZIN 10 MG TABLET PO (11:42)
--- NOTE | 2024-01-12 12:39 | PC.SOCIAL ---
Social work video production intern provided pt with resources about meals on wheels and other meal delivery services, per pt request. Social work to follow up as needed.
--- NOTE | 2024-01-12 13:30 | P.GSPN_ITS ---
Subjective Subjective Date Seen: 01/12/24 Interval history: Oscar says she feels well today. She has been tolerating a diet. Denies abdominal pain, nausea or vomiting. She states that she has had a bowel movement which was normal. Exam Narrative: Exam Narrative: General: No acute distress Abdomen: Soft, nontender. Specifically no tenderness in the right upper snow drant and negative Mathew sign. Const: Vital Signs, click to edit/add: Vital Signs - 24 hr 01/11/24 15:00 01/11/24 15:00 01/11/24 19:46 Temperature 98.1 F 97.9 F Pulse Rate Pulse Rate [Pulse Oximeter] 88 88 83 Respiratory Rate 18 18 18 Blood Pressure [Ri ght Arm] 108/66 111/66 Pulse Oximetry 95 96 Oxygen Delivery Me thod Room Air Room Air 01/11/24 22:34 01/11/24 23:00 01/11/24 23:06 Temperature 98.2 F Pulse Rate 80 Pulse Rate [Pulse Oximeter] 80 80 Respiratory Rate 18 18 Blood Pressure [Ri ght Arm] 107/57 L Pulse Oximetry 96 Oxygen Delivery Me thod Room Air 01/12/24 02:35 01/12/24 07:39 01/12/24 07:47 Temperature 97.9 F 98.1 F Pulse Rate 80 Pulse Rate [Pulse Oximeter] 76 85 Respiratory Rate 18 18 Blood Pressure [Ri ght Arm] 114/62 116/72 Pulse Oximetry 95 95 Oxygen Delivery Me thod Room Air Room Air 01/12/24 11:38 Temperature 97.8 F Pulse Rate Pulse Rate [Pulse Oximeter] 74 Respiratory Rate 16 Blood Pressure [Ri ght Arm] 125/66 Pulse Oximetry 99 Oxygen Delivery Me thod Room Air Labs/Imaging Labs Labs: White blood cell count today is normal at 8.4. Imaging Imaging: MRI of the abdomen: 1. Dilated common bile duct measuring up to 13 millimeters in diameter. No stone is identified within the common bile duct although there is abrupt termination near the ampulla. Consider further evaluation with ERCP. 2. Dilated cystic duct. Dilated common hepatic duct and mildly dilated proximal intrahepatic ducts. 3. Large gallstone within the gallbladder measuring up to 4.8 centimeters in diameter. No additional evidence for cholecystitis. Dictated by Laura Kim MD @ 01/11/2024 5:43:33 PM Progress Note:A&P Assessment and plan (1) Cholelithiasis: Status: Acute (2) Dilation of biliary tract: Status: Acute Plan The patient is an 83-year-old female who presented to the emergency department with weakness and who was found to have a dilated gallbladder with a large gallstone, biliary dilatation elevated white blood cell count and possible gallbladder wall thickening but without any abdominal pain. She did have a recent history of vomiting but this coincided with prescription for doxycycline which can cause GI upset. At this time she has no further symptoms. Of note she has biliary dilatation on MRI. There is no filling defect though the cutoff to the ampulla is abrupt. ERCP was suggested, however in the absence of j [email or web address] I do not know that this is necessary. - At this point, given her heart failure and lack of convincing evidence for cholecystitis I would recommend conservative treatment with antibiotics - mainly because even though she does not have symptoms she did comeIn with a white count, elevated lactate and weakness. Certainly an elderly adult particularly with diabetes biliary symptoms can be nonspecific. the MRI is reassuring however given lack of evidence of cholecystitis on this study. If she were to develop symptoms or have a 2nd episode we could discuss cholecystectomy at that time. - Agree with keeping patient inpatient until all cultures return to ensure appropriate treatment upon discharge. - she can follow-up with/ establish care with primary care after discharge
--- NOTE | 2024-01-12 14:37 | PM.IMPN1 ---
Progress Note: A&P Assessment and plan (1) Acute calculous cholecystitis: Problem details: CT and ultrasound suggest cholecystitis. Patient has constitutional symptoms of illness including abdominal pain in loss of appetite. Will treat as cholecystitis. Obtain surgical consult. MRCP shows dilated common duct with no definite stone. Narrowing of the distal common duct at the ampulla. Reviewed with surgery and patient and family and decision is made to medically manage this for now. If recurrent symptoms may need ERCP. Status: Acute (2) Cholelithiasis: Problem details: Follow clinically for symptoms Status: Acute (3) Dilation of biliary tract: Problem details: Consider ERCP if developing symptoms. Status: Acute (4) Sepsis: Problem details: Patient is tachycardic, elevated lactate, elevated white blood count, suspected cholecystitis as the source. Clinically improved. Status: Acute (5) Congestive heart failure: Problem details: History of heart failure with reduced ejection fraction as noted above. Echocardiogram shows ejection fraction 36% with severe tricuspid regurgitation. Improved from previous echo showing 30% ejection fraction Status: Acute (6) Diabetes mellitus, type 2: Problem details: Resume normal outpatient management . With heart failure will start as SGLT2 inhibitor. Due to diarrhea will decrease metformin Status: Acute (7) Chronic diarrhea: Problem details: She has been diagnosed with irritable bowel syndrome in the past she is being treated with oral budesonide for this. She is not aware of having colonoscopy or a diagnosis of any type of colitis. Unclear whether her metformin therapy is making this worse. She does use antidiarrheal medicine as needed Status: Acute (8) Left ventricular thrombus: Problem details: Diagnosed at least 2 years ago on chronic warfarin therapy. Consider outpatient echo for evaluation of LV thrombus with definity contrast. If no thrombus is seen consider stopping warfarin, switching to apixaban or cardiology consult. Status: Acute (9) Excessive anticoagulation: Problem details: INR is 4.79. Likely due to poor oral intake in the last few days while continuing normal warfarin dosing. Vitamin K given pending possible surgery Status: Acute (10) Frailty syndrome in geriatric patient: Problem details: Patient is been frail and at risk for falls. She has been resistant to outpatient physical therapy and occupational therapy at home. I discussed with the patient that she need to continue with therapy to maintain her independence. Status: Acute Plan Continue in hospital for another day of IV antibiotics, management of her heart failure and diabetes as we resume her medications. Time Spent With Patient Total time spent: Total time spent today is 50 minutes in discussion with patient family and other providers management of cholecystitis, heart failure, LV thrombus Subjective Date Seen: 01/12/24 Interval history: Jeanine Montague is a 83 year old female admitted through the emergency department with a few days of weakness poor appetite and now 2 falls at home. She denies any injury with her falls. She reports that she has had a few days were she has just been feeling weak and tired and more unsteady on her feet. She has had a poor appetite. Initially denied any abdominal pain but her daughter notes that she has been reporting some abdominal pain. She has not had vomiting but she is eating poorly. She has had chronic loose stools. No blood in her stool. She has not had chest pain or shortness of breath. She is not aware of any fever. Initially it was suspected that her problems might be related to prescription for doxycycline that was started 5 days ago. She has had a small boil in her left groin and was started on doxycycline for this. Patient does not know her medications. Her daughter tells me what she has been setting up medications for her mom and it sounds like the patient has been getting 4 tablets of Wellbutrin XL 150 mg per day. The prescription was for 3 tablets or is 450 mg daily. Patient does not know much of her medical history so this is obtained from her son and daughter and the medical record. She has been living in [place] and getting healthcare through a [facility] in [place]. She has a history of heart failure with reduced ejection fraction . 04/10/2019 to she had an echocardiogram showing an ejection fraction of 30%. Her ejection fraction was as low as 18% when she was off her heart failure medications and improved to 45% after 3 weeks of medication adherence. This is presumably ischemic heart disease with a history of coronary disease and coronary stenting in the LAD in 2017. She also has valvular disease including severe mitral regurgitation, severe tricuspid regurgitation. Right-sided pressures in 2 years ago were 40 mmHg + right atrial pressure of 15 mmHg She is on chronic warfarin. She has a left ventricular thrombus discovered in 11/14/2020. She has been on chronic warfarin since that time. Reviewed this with [facility] cardiology. There is significant clinical uncertainty about what the right next step is. Preliminary plan would be to continue anticoagulation pending repeat echo with definity contrast to see if there is a thrombus in the left ventricle. If there were no thrombus it would be reasonable to have a discussion about discontinuing warfarin. Alternatively could be on apixaban. 01/12/2024: She reports generally feeling well today she has no concerns. She reports no chest pain or shortness of breath. No fever. She reports a good appetite. No nausea vomiting or abdominal pain. Exam Narrative: Exam Narrative: She is alert appears in no distress. She is pleasant cooperative. Respirations are clear to auscultation. Cardiovascular: S1, S2, regular rate and rhythm. No murmur gallop or rub. Abdomen: Bowel sounds active. Abdomen is soft without tenderness or mass. Extremities without edema. Const: Vital Signs, click to edit/add: Vital Signs - 24 hr 01/11/24 15:00 01/11/24 15:00 01/11/24 19:46 Temperature 98.1 F 97.9 F Pulse Rate Pulse Rate [Pulse Oximeter] 88 88 83 Respiratory Rate 18 18 18 Blood Pressure [Ri ght Arm] 108/66 111/66 Pulse Oximetry 95 96 Oxygen Delivery Me thod Room Air Room Air 01/11/24 22:34 01/11/24 23:00 01/11/24 23:06 Temperature 98.2 F Pulse Rate 80 Pulse Rate [Pulse Oximeter] 80 80 Respiratory Rate 18 18 Blood Pressure [Ri ght Arm] 107/57 L Pulse Oximetry 96 Oxygen Delivery Me thod Room Air 01/12/24 02:35 01/12/24 07:39 01/12/24 07:47 Temperature 97.9 F 98.1 F Pulse Rate 80 Pulse Rate [Pulse Oximeter] 76 85 Respiratory Rate 18 18 Blood Pressure [Ri ght Arm] 114/62 116/72 Pulse Oximetry 95 95 Oxygen Delivery Me thod Room Air Room Air 01/12/24 11:38 Temperature 97.8 F Pulse Rate Pulse Rate [Pulse Oximeter] 74 Respiratory Rate 16 Blood Pressure [Ri ght Arm] 125/66 Pulse Oximetry 99 Oxygen Delivery Me thod Room Air Documenting provider has reviewed patient's vital signs: yes Labs Labs: Laboratory Results - last 24 hr 01/12/24 05:54 WBC 8.43 RBC 3.04 L Hgb 9.5 L Hct 28.3 L MCV 93 MCH 31 MCHC 34 RDW Coeff of Sienna 14.5 Plt Count 278 Neut % (Auto) 72.2 H Lymph % (Auto) 19.2 L Norman % (Auto) 6.2 Eos % (Auto) 1.5 Baso % (Auto) 0.5 Neut # (Auto) 6.10 Lymph # (Auto) 1.60 Norman # (Auto) 0.50 Eos # (Auto) 0.13 Baso # (Auto) 0.04 Abs Immat Gran (auto) 0.03 Imm/Tot Granulo (auto) 0.4 INR 1.65 H Sodium 130 L Potassium 3.6 Chloride 96 Carbon Dioxide 26 Anion Gap 8 BUN 23 Creatinine 1.0 Estimated Creat Clear 34.90 Estimated GFR 57 Glucose 147 H Hemoglobin A1c 7.6 H Calcium 8.1 L Magnesium 2.0 Total Bilirubin 0.4 Direct Bilirubin 0.2 AST 19 ALT 16 Alkaline Phosphatase 101 Troponin I 0.04 C-Reactive Protein 3.4 H Total Protein 5.8 L Albumin 3.2 L
[2024-01-12] MEDS: WARFARIN 3 MG TABLET PO (17:02)
[2024-01-12] MEDS: METFORMIN ER 500 MG 1000 MG PO (17:02)
[2024-01-13] MEDS: PIPERACILLIN/TAZOBACTAM 2.25 GM in 0.9 % SODIUM CHLORIDE Mini-bag 100 ML IVPB ×2 (02:54→08:34)
[2024-01-13 03:00] VITALS: BP 141/76; PULSE 71; RESP 18; TEMP 36.7; O2SAT 100
[2024-01-13] MEDS: ACETAMINOPHEN 325 MG TABLET 650 MG PO (03:59)
[2024-01-13 06:51] LABS: Basophils Absolute Auto 0.04 K/uL (0.00-0.30); Basophils Percent Auto 0.4 % (0.0-3.0); Eosinophils Absolute Auto 0.16 K/uL (0.00-0.50); Eosinophils Percent Auto 1.7 % (0.0-7.0); Hematocrit* 29.9 % (33.0-51.0); Hemoglobin* 9.8 gm/dL (12.0-16.0); Immature Granulocytes Abs Auto 0.03 K/uL (0.00-0.30); Immature Granulocytes Pct Auto 0.3 %; Lymphocytes Percent Auto 17.9 % (20-44); Mean Corpuscular HGB Conc 33 gm/dL (32-36); Mean Corpuscular Hemoglobin 31 pg (26-34); Mean Corpuscular Volume 94 fL (80-100); Monocytes Percent Auto 7.3 % (0.0-11.0); Neutrophils Percent Auto 72.4 % (42.0-72.0); Platelet Count* 279 K/uL (140-440); RDW Coefficient of Variation % 14.6 % (11.5-15.5); Red Blood Count* 3.17 m/uL (4.00-5.20)
[2024-01-13 06:58] LABS: INR 1.22 (0.91-1.10); Prothrombin Time 16.2 Seconds
[2024-01-13 07:02] LABS: Slide Review Reflex No
[2024-01-13 07:03] LABS: Chloride* 100 mmol/L (96-114); Potassium* 3.9 mmol/L (3.6-5.1); Sodium* 132 mmol/L (135-149)
[2024-01-13 07:06] LABS: Creatinine* 1.1 mg/dL (0.5-1.5); Est. Creatinine Clearance* 31.72; Estimated Glomerular Filt Rate 50 ml/min
[2024-01-13 07:07] LABS: Anion Gap 9 mEq/L (7-15); Blood Urea Nitrogen* 19 mg/dL (7-30); Calcium* 8.5 mg/dL (8.4-10.6); Carbon Dioxide* 23 mmol/L (20-32); Glucose* 141 mg/dL (60-115)
[2024-01-13 07:10] LABS: C Reactive Protein* 3.1 mg/dL (0.5-1.0)
--- NOTE | 2024-01-13 07:20 | PC.NURSE ---
Pt alert, oriented and vitally stable. Pt transfers via 1a walker and gait belt. Pt requested PRN Tylenol around 0400 for generalized pain. Pt also has scattered bruising noted to bilateral upper extremities along with abrasions scattered throughout extremities. IV patent.
[2024-01-13 07:37] VITALS: BP 145/78; PULSE 75; RESP 18; TEMP 36.7; O2SAT 95
[2024-01-13] MEDS: ASPIRIN 81 MG TABLET EC PO (08:34)
[2024-01-13] MEDS: BUDESONIDE 3 MG PO (08:34)
[2024-01-13] MEDS: MAGNESIUM OXIDE 400 MG TABLET PO (08:35)
[2024-01-13] MEDS: EMPAGLIFLOZIN 10 MG TABLET PO (08:35)
[2024-01-13] MEDS: buPROPion XL 150 MG TABLET 300 MG PO (08:35)
[2024-01-13] MEDS: METOPROLOL SUCCINATE (XL) 25 MG TAB PO (08:35)
[2024-01-13] MEDS: ROSUVASTATIN CALCIUM 10 MG TABLET 20 MG PO (08:35)
[2024-01-13 09:24] VITALS: PULSE 73
--- NOTE | 2024-01-13 11:41 | PC.SOCIAL ---
Discharge planning: Social work international relations teacher completed a discharge planning assessment with pt, pt's daughter and pt's son. Pt has a home in [place], [place] but currently lives with her daughter in [place]. She has been receiving medical homecare services through [facility]. They discharged her last week because she was not participating in therapies. Pt states today that she was just having a bad week and would like to re-start homecare. [employer] will pick her back up again for care. Pt's daughter, Chivo, works 05:00-15:30 at a [employer] in [place] and pt's son has concerns about pt being home alone for this long. Pt's son and daughter requested the social work team look into more services. Social work international relations teacher gave the family resources for food delivery services, homemaker services and the [facility]. PT, OT, nursing and homehealth aide services will be restarted through [facility]. Social work international relations teacher faxed discharge summary, H&P and home health orders to the [employer], fax#[phone]. Pt's family is in agreement with these services, but would like homemaker services that were covered by medicare. Social work international relations teacher told the family that these types of services would be private pay, but that they could contact the [facility] or [facility] to inquire about government funded programs. Pt's family also discussed the possibility of a long-term care facility, so social work international relations teacher provided resources of assisted living facilities in the area. Pt will follow up with Dr Short at [facility] in 7 days. Family had further questions about options for medications and social work international relations teacher directed those questions to nursing staff. Social work to follow up as needed.
--- NOTE | 2024-01-13 11:54 | P.DS_ITS ---
DS: Providers Provider Date Seen: 01/13/24 Date of admission: 01/11/24 07:51 Primary care physician: Not a Local Provider Admitting Clinician: Konrad Mcmillan MD Attending Physician on discharge: Konrad Mcmillan MD Date of Discharge: 01/13/24 DS: Diagnosis Discharge Diagnosis (1) Acute calculous cholecystitis: Status: Acute Problem details: CT and ultrasound suggest cholecystitis. Patient has constitutional symptoms of illness including abdominal pain in loss of appetite. Will treat as cholecystitis. Obtain surgical consult. MRCP shows dilated common duct with no definite stone. Narrowing of the distal common duct at the ampulla. Reviewed with surgery and patient and family and decision is made to medically manage this for now. If recurrent symptoms may need ERCP. (2) Cholelithiasis: Status: Acute Problem details: Follow clinically for symptoms (3) Dilation of biliary tract: Status: Acute Problem details: Consider ERCP if developing symptoms, abdominal pain, anorexia, nausea, fever, jaundice. (4) Sepsis: Status: Acute Problem details: Patient is tachycardic, elevated lactate, elevated white blood count, suspected cholecystitis as the source. Blood culture and urine cultures unremarkable. Clinically improved with antibiotic/Zosyn. Discharge on Augmentin for 1 more week. (5) Congestive heart failure: Status: Acute Problem details: History of heart failure with reduced ejection fraction as noted above. Echocardiogram shows ejection fraction 36% with severe tricuspid regurgitation. Improved from previous echo showing 30% ejection fraction. Add Jardiance for heart failure and diabetes treatment. (6) Diabetes mellitus, type 2: Status: Acute Problem details: Resume normal outpatient management . With heart failure will start Jardiance. Due to diarrhea will decrease metformin. Outpatient follow-up (7) Chronic diarrhea: Status: Acute Problem details: She has been diagnosed with irritable bowel syndrome in the past she is being treated with oral budesonide for this. She is not aware of having colonoscopy or a diagnosis of any type of colitis. Unclear whether her metformin therapy is making this worse. She does use antidiarrheal medicine as needed. During hospital stay diarrhea was much better though she was off metformin. Assess diarrhea as an outpatient when she read resumes metformin at a lower dose. Consider trial off of budesonide if her diarrhea resolves. (8) Left ventricular thrombus: Status: Acute Problem details: Diagnosed at least 2 years ago on chronic warfarin therapy. Consider outpatient limited echocardiogram with definity for evaluation of LV thrombus. If no thrombus is seen consider stopping warfarin, switching to apixaban or cardiology consult. (9) Excessive anticoagulation: Status: Acute Problem details: INR is 4.79. Likely due to poor oral intake in the last few days before admission while continuing normal warfarin dosing. Resume warfarin at previous dose pending outpatient followup and possible limited echocardiogram with definity contrast to evaluate for left ventricular thrombus. Consider discontinuing anticoagulation if no thrombus is seen. (10) Frailty syndrome in geriatric patient: Status: Acute Problem details: Patient is been frail and at risk for falls. She has been resistant to outpatient physical therapy and occupational therapy at home. I discussed with the patient that she need to continue with therapy to maintain her independence. (11) Hematuria: Status: Acute Problem details: Had hematuria and pyuria on admission. Urine cultures were relatively unremarkable. Recheck UA. If persistent hematuria consider urology referral (12) Skin infection: Status: Acute Problem details: Small abscess with cellulitis in left inguinal area diagnosed prior to admission and treated with doxycycline. Clinically improved during hospital stay. Recheck as outpatient to make sure it is resolving. (13) Depression: Status: Acute Problem details: Patient has had a relatively apathetic depression according to her family. She even acknowledges this. Family feels this is interfering with her engaging with therapy as an outpatient. She has been treated with an increasing dose of antidepressants. By accident she had been receiving Wellbutrin XL 150 mg 4 tablets daily. This dose was cut in half. He also remains on Remeron. Ongoing outpatient review of psychopharmacology and depression is warranted DS: Summary Hospital Course Hospital Course: Jeanine Montague is a 83 year old female admitted through the emergency de partment with a few days of weakness poor appetite and now 2 falls at home. She denies any injury with her falls. She reports that she has had a few days were she has just been feeling weak and tired and more unsteady on her feet. She has had a poor appetite. Initially denied any abdominal pain but her daughter notes that she has been reporting some abdominal pain. She has not had vomiting but she is eating poorly. She has had chronic loose stools. No blood in her stool. She has not had chest pain or shortness of breath. She is not aware of any fever. Initially it was suspected that her problems might be related to prescription for doxycycline that was started 5 days ago. She has had a small boil in her left groin and was started on doxycycline for this. Patient does not know her medications. Her daughter tells me what she has been setting up medications for her mom and it sounds like the patient has been getting 4 tablets of Wellbutrin XL 150 mg per day. The prescription was for 3 tablets or is 450 mg daily. Patient does not know much of her medical history so this is obtained from her son and daughter and the medical record. She has been living in [place] and getting healthcare through a [facility] in [place]. She has a history of heart failure with reduced ejection fraction . 04/10/2019 to she had an echocardiogram showing an ejection fraction of 30%. Her ejection fraction was as low as 18% when she was off her heart failure medications and improved to 45% after 3 weeks of medication adherence. This is presumably ischemic heart disease with a history of coronary disease and coronary stenting in the LAD in 2016. She also has valvular disease including severe mitral regurgitation, severe tricuspid regurgitation. Right-sided pressures in 2 years ago were 40 mmHg + right atrial pressure of 15 mmHg She is on chronic warfarin. She has a left ventricular thrombus discovered in 11/14/2020. She has been on chronic warfarin since that time. Initial plan for warfarin therapy was 3-6 months. She did have an echocardiogram early 2021 which showed no LV thrombus. She had a Cardiology follow-up as well and they did not make a recommendation to discontinue warfarin. She has been on it since that time without bleeding problems. In discussion with [facility] cardiology it was acknowledge that there is some uncertainty about balancing risks and benefits of anticoagulation with bleeding and thromboembolism in someone with a previous history of LV thrombus possibly due to heart failure with poor ejection fraction. Cardiology felt it would be reasonable to discontinue anticoagulation if there is no persistent thrombus. Data on preventing future recurrent LV thrombus with anticoagulation is not very clear in its recommendations and outcomes. Consider obtaining a limited echo with definity contrast to determine whether LV thrombus is present. Consider discontinuing anticoagulation if no LV thrombus is present. During her hospital stay she was treated with piperacillin tazobactam for presumed cholecystitis. Her illness relatively quickly resolved. Further testing included an MRCP to evaluate for possible common bile duct obstruction. There was no stone but a question of a possible mass at the ampulla. As she was entirely asymptomatic and had no jaundice or elevation of her bilirubin the decision was made in consultation with patient family and surgery to simply observe for now to see how she does. She will have Augmentin for 1 week after discharge. During the hospital stay she did remarkably well. She was eating fairly well. She had no fever. Her heart failure was well compensated. Her diabetes was fairly well controlled. She is originally from [place] and got her medical care through [facility] in [facility]. She is now living with her daughter in [place]. I recommended she has stabbed wished care locally. She would like to move back to [place] but this would require that she live independently and be able to drive a car. Right now I am recommending that she have outpatient OT and PT therapy assessment to determine that she would be able to safely drive and take care of herself. Her son and daughter share my concern that she may not be able to live independently any longer. 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 Respirations are clear to auscultation. Cardiovascular: S1, S2, regular rate and rhythm. Abdomen: Bowel sounds active. Abdomen is soft without tenderness or mass. Left groin is examined and there is a 3 mm opening in the skin without active drainage or tenderness or redness. Const: Vital Signs, click to edit/add: Vital Signs - 24 hr 01/12/24 15:26 01/12/24 15:32 01/12/24 19:00 Temperature 97.5 F L 98.1 F Pulse Rate 71 Pulse Rate [Pulse Oximeter] 73 80 Respiratory Rate 16 16 Blood Pressure [Le ft Arm] 132/70 Blood Pressure [Ri ght Arm] 123/84 Pulse Oximetry 96 96 Oxygen Delivery Me thod Room Air Room Air 01/12/24 23:00 01/12/24 23:00 01/12/24 23:00 Temperature 98.0 F Pulse Rate 76 Pulse Rate [Pulse Oximeter] 72 71 Respiratory Rate 16 18 Blood Pressure [Le ft Arm] Blood Pressure [Ri ght Arm] 140/75 H Pulse Oximetry 97 Oxygen Delivery Me thod Room Air 01/13/24 03:00 01/13/24 07:37 01/13/24 07:37 Temperature 98.0 F 98.1 F Pulse Rate Pulse Rate [Pulse Oximeter] 71 75 75 Respiratory Rate 18 18 18 Blood Pressure [Le ft Arm] 145/78 H Blood Pressure [Ri ght Arm] 141/76 H Pulse Oximetry 100 95 Oxygen Delivery Me thod Room Air Room Air 01/13/24 09:24 Temperature Pulse Rate 73 Pulse Rate [Pulse Oximeter] Respiratory Rate Blood Pressure [Le ft Arm] Blood Pressure [Ri ght Arm] Pulse Oximetry Oxygen Delivery Me thod Documenting provider has reviewed patient's vital signs: yes DS: Data Data Completed and Pending Labs on day of discharge: Labs from last 24 hours 01/13/24 06:06 WBC 9.40 RBC 3.17 L Hgb 9.8 L Hct 29.9 L MCV 94 MCH 31 MCHC 33 RDW Coeff of S[place] 14.6 Plt Count 279 Neut % (Auto) 72.4 H Lymph % (Auto) 17.9 L Tama % (Auto) 7.3 Eos % (Auto) 1.7 Baso % (Auto) 0.4 Neut # (Auto) 6.80 Lymph # (Auto) 1.70 Tama # (Auto) 0.70 Eos # (Auto) 0.16 Baso # (Auto) 0.04 Abs Immat Gran (auto) 0.03 Imm/Tot Granulo (auto) 0.3 INR 1.22 H Sodium 132 L Potassium 3.9 Chloride 100 Carbon Dioxide 23 Anion Gap 9 BUN 19 Creatinine 1.1 Estimated Creat Clear 31.72 Estimated GFR 50 Glucose 141 H Calcium 8.5 C-Reactive Protein 3.1 H Preliminary micro results at discharge 01/11/24 07:15 Blood Culture - Preliminary Blood NO GROWTH AFTER 48 HOURS Imaging Chest x-ray: Radiologist's impression: Indication: Fall, weakness and dizziness Technique: Chest 2 views Comparison: None Findings/Impression: Cardiovascular and mediastinum: Heart size and vasculature are normal in caliber and appearance. Mediastinum is within normal limits. Lungs and pleural spaces: Lungs are clear. No sign of infiltrate or mass. No sign of pleural effusion. No pneumothorax. Bones and soft tissues: Status post plate and screw fixation of the left 8th rib posteriorly. Old right 6th rib fracture. CT scan - abdomen: Radiologist's impression: INDICATION: Fall, weakness, groin abscess and sepsis TECHNIQUE: Axial images were obtained from the diaphragm to the pubic symphysis. Reformats were obtained in the coronal and sagittal plane. IV Contrast: 91 cc Omnipaque 350 Oral Contrast: None COMPARISON: None. FINDINGS: Lower chest: Scattered areas of discoid atelectasis at the lung bases. Minimal outpouching of the left lung posteriorly adjacent to the rib surgical site. Status post left mastectomy. Liver: Unremarkable. Normal in size and attenuation. No masses. Gallbladder and bile ducts: Borderline diameter of the common duct measuring 9 millimeters with prominent gallbladder distention and large stone within the gallbladder lumen. Gallbladder wall thickness is borderline. Mild intrahepatic biliary dilatation. Note is made of a prominent duodenal diverticulum adjacent to the papilla. Spleen: Unremarkable. Normal in size without mass. Pancreas: Moderate pancreatic atrophy. Adrenal glands: Unremarkable. No nodules. Kidneys: Symmetric renal enhancement without hydronephrosis. Mild left renal scarring. Vasculature: Atherosclerosis without abdominal aortic aneurysm. GI tract: The stomach is unremarkable. No dilated loops of large or small intestine with colonic diverticulosis noted. Normal appendix. Pelvis: Air throughout the endometrial cavity. No adnexal masses. Skin defect in the left inguinal region with slight adjacent skin thickening without evidence of abscess. Bones: Probably old right 7th rib fracture. Status post plate and screw fixation of the left 8th rib posteriorly. Old left 9th rib fracture posteromedially. Intramuscular lipoma within the right obturator musculature. Old left iliac wing fracture. IMPRESSION: 1. Left inguinal skin defect consistent with the given history of groin infection although without evidence of an abscess. Minimal adjacent skin thickening. 2. Cholelithiasis with prominent gallbladder distention, borderline common duct dilatation intrahepatic biliary dilatation. Right upper quadrant ultrasound suggested to assess for cholecystitis. Note that there can be some compression on the distal common duct secondary to a large duodenal diverticulum adjacent to the papilla. 3. Colonic diverticulosis without evidence of diverticulitis. 4. Old rib and left iliac wing fractures as above. MRI - abdomen: Radiologist's impression: INDICATION: fall, weakness, abnormal CT and US TECHNIQUE: An MRCP, including 2D, 3D and maximum intensity projection imaging, was performed. COMPARISON: CT of the abdomen from January 11, 2024 FINDINGS: The common bile duct is smoothly marginated and measures up to 13 mm in diameter. The cystic duct is also mildly dilated. Common hepatic duct is also dilated with mild intrahepatic biliary ductal dilatation as well proximally. No stones identified within the dilated ducts. No definite stone at the distal aspect of the common bile duct although there is abrupt termination near the ampulla. No filling defect is evident. Gallbladder demonstrates a large gallstone measuring approximally 3.8 x 4.8 centimeters (7/21). The pancreatic duct is mildly prominent. The liver is normal in size, shape and signal. The spleen, pancreas, adrenal glands and kidneys are within normal limits. No bowel abnormality, lymphadenopathy or free fluid is demonstrated. IMPRESSION: 1. Dilated common bile duct measuring up to 13 millimeters in diameter. No stone is identified within the common bile duct although there is abrupt termination near the ampulla. Consider further evaluation with ERCP. 2. Dilated cystic duct. Dilated common hepatic duct and mildly dilated proximal intrahepatic ducts. 3. Large gallstone within the gallbladder measuring up to 4.8 centimeters in diameter. No additional evidence for cholecystitis. US - abdomen: Radiologist's impression: Indication: Infection. Weakness. Abnormal CT. Technique: Sonography of the abdomen was performed limited to the structures discussed below Comparison: Limited portions of a CT from January 11, 2024 Findings: The gallbladder is distended. Wall thickness is abnormal at 5 millimeters. There is no pericholecystic fluid. A large stone is noted measuring about 6.9 centimeters. There was no reported sonographic Mathew`s sign. The common bile duct is dilated at 1.2 centimeters. The liver was not specifically studied on this exam but there were prominent intrahepatic ducts on the CT. The findings are concerning for acute cholecystitis in the appropriate clinical setting. Due to the intrahepatic biliary ductal dilation, it is also possible that there is another form of obstructive cholangiopathy such as distal chol edocholithiasis that is not visible either on the CT or the ultrasound. Consider MRCP. Impression: 1. Distended gallbladder containing a large stone. Wall thickness is abnormal but there is no pericholecystic fluid or sonographic Mathew sign. The common duct measures 1.2 centimeters which is abnormal. 2. There are dilated intrahepatic ducts on the recent CT. The liver was not specifically studied on this exam. 3. The findings are suggestive of acute cholecystitis in the appropriate clinical setting. The dilated ducts could also be due to obstructive cholangiopathy as an additional finding. This could be due to nonvisualized distal choledocholithiasis. 4. Consider MRCP for further evaluation. Discharge Plan Discharge Disposition: Home, Self-Care Date of Admission: 01/11/24 07:51 Attending Provider on Discharge: Konrad Mcmillan Consulting Providers: Rosa Elena Vargas Discharge Medications: New magnesium oxide 400 mg (241.3 mg magnesium) Tablet 400 mg PO DAILY Qty: 100 0RF Jardiance 10 mg Tablet 10 mg PO DAILY Qty: 30 0RF amoxicillin-pot clavulanate 875-125 mg tablet 1 tab PO BID Qty: 14 0RF Continued valsartan 40 mg tablet 20 mg PO BID bupropion HCl 150 mg tablet extended release 24 hr 300 mg PO DAILY aspirin 81 mg capsule 81 mg PO DAILY trazodone 50 mg tablet 50 mg PO HS PRN (Reason: insomnia) warfarin 2 mg tablet 2 - 3 mg PO DAILY Rx Instructions: 3MG MON,WED,FRI AND 2 MG ALL OTHER DAYS metoprolol succinate 25 mg tablet extended release 24 hr 25 mg PO DAILY budesonide 3 mg capsule,delayed,extend.release 6 mg PO DAILY rosuvastatin 20 mg tablet 20 mg PO DAILY nystatin [Klayesta] 100,000 unit/gram powder 1 applic topical BID cyanocobalamin (vitamin B-12) 500 mcg tablet 500 mcg PO DAILY Changed metformin 500 mg tablet extended release 24 hr 1,000 mg PO DAILY Qty: 60 0RF Discontinued doxycycline hyclate 100 mg capsule 100 mg PO BID cefdinir 300 mg capsule 300 mg PO BID Discharge Orders: Discharge Order (Routine); Ordered 01/13/24 Ordered By: Konrad Mcmillan Patient Education: Amoxicillin/Clavulanate Potassium (By mouth), Magnesium Oxide (By mouth), Empagliflozin (By mouth) (Jardiance), Heart Failure (DC), Cholecystitis (ED) Activity Level: Activity as Tolerated Discharge Diet: Regular Follow Up Appointments: Martin Short MD [Referring] - 01/20/24 1:00 pm ([facility] for follow up and recheck UA, CBC, basic metabolic panel, magnesium, INR.) Tex Daniel MD [Staff Physician] - (Physician unavailable during desired time frame ) Provider,Not a Local [Primary Care Provider] - Forms: [facility] Info Instructions
--- NOTE | 2024-01-13 14:00 | PC.NURSE ---
Nursing Care Hours: [id number] Pt this shift calm and cooperative, alert and oriented. No c/o pain. VSS. SB assist with walker. ABX infused, IV removed for DC. discharge instructions went over with pt and family. Discussed new and changed medications, weight measurements with HF, SS of hypo and hyper glycemia. Wheeled out to family vehicle in stable condition.
== END 2024-01-13 11:27 | disposition home or self-care (01) | DRG 872 ==
LOC: ED 07:17 → MEDSURG 07:52
PROVIDERS: Admitting Provider Family Medicine; Emergency Provider Family Medicine; Visit Provider Family Medicine
DX: A41.9 Sepsis, unspecified organism (principal); K80.00 Calculus of gallbladder with acute cholecystitis without obstruction; I13.0 Hypertensive heart and chronic kidney disease with heart failure and stage 1 through stage 4 chronic kidney disease, or unspecified chronic kidney disease; I43 Cardiomyopathy in diseases classified elsewhere; I50.22 Chronic systolic (congestive) heart failure; L03.314 Cellulitis of groin; L02.214 Cutaneous abscess of groin; L02.224 Furuncle of groin; K82.8 Other specified diseases of gallbladder; E83.42 Hypomagnesemia; R31.9 Hematuria, unspecified; K58.0 Irritable bowel syndrome with diarrhea; R54 Age-related physical debility; E11.22 Type 2 diabetes mellitus with diabetic chronic kidney disease; N18.9 Chronic kidney disease, unspecified; Z79.84 Long term (current) use of oral hypoglycemic drugs; Z79.01 Long term (current) use of anticoagulants; W19.XXXA Unspecified fall, initial encounter; Y92.009 Unspecified place in unspecified non-institutional (private) residence as the place of occurrence of the external cause; Z91.81 History of falling; G47.33 Obstructive sleep apnea (adult) (pediatric); I51.3 Intracardiac thrombosis, not elsewhere classified; F32.A Depression, unspecified; R94.31 Abnormal electrocardiogram [ECG] [EKG]; I25.10 Atherosclerotic heart disease of native coronary artery without angina pectoris; Z95.5 Presence of coronary angioplasty implant and graft; Z90.10 Acquired absence of unspecified breast and nipple
CPT/HCPCS: 36415; 71046; 73502; 74177; 74181; 76705; 80048; 80053; 80076; 80306; 81001; 81003; 82077; 82550; 82962; 83036; 83605; 83690; 83735; 84145; 84443; 84484; 85025; 85610; 86140; 87040; 87086; 87637; 93005; 93306; 94761; 97110; 97116; 97162; 97165; 97535; 99284; 99285; A9270; J2270; J2543; J3475; J7030; Q9967

== ENCOUNTER 2024-10-14 11:49 | Observation (INO) | payer MEDICARE, OTHER, SELFPAY ==
[2024-10-14] VITALS (12 sets, daily range): BP systolic 124–158; BP diastolic 65–91; PULSE 71–118; RESP 14–22; TEMP 36.2–36.7; O2SAT 95–98; BMI 36.6; BMI 37.4
--- OUTSIDE RECORDS SUMMARY | 2024-10-14 11:51 | XMS_ITS | Encounter Summary ---
Author Organization [facility] Address [address] [place] [address] Care Team Providers Care Ceo Na Name Role Phone Elsewhere, Pcp Primary Care Provider Unavailabl e Encounter Details Date Type Department Care Team (Late st Contact Info) Description 07/05/2003 Historical Ophthalmology [facility] Aureliano Newby M.D. Social History Tobacco Use Types Packs/Day Years Used Date Smoking Tobacco: Never Assessed Comments Unknown Sex and Gender Information Value Date Recorded Sex Assigned at Female 09/22/2017 1:45 PM CDT Legal Sex Female 7:19 AM SPIRAL BINDER Gender Identity Female 09/22/2017 1:45 PM CDT [...] - mild CDM Reports - EYEGEN Id: [id number] Status: Fnl documented in this encounter Plan of Treatment Not on file documented as of this encounter Visit Diagnoses Not on filedocumented in this encounter Additional Health Concerns Infection Onset Date Last Indicated Resolved Time COVID19 Pending 09/05/2020 09/05/2020 09/05/2020 6 :27 PM CDT COVID19 Pending 10/23/2020 10/23/2020 10/23/2020 1 1:52 PM CDT COVID19 Pending 03/25/2022 03/25/2022 03/26/2022 2 :00 PM SPIRAL BINDER documented as of this encounter Care Teams Ceo Na Relationship Specialty Start Date End Date Elsewhere, Pcp PCP - General Internal Medicine 02/21/24 documented as of this encounter
--- OUTSIDE RECORDS SUMMARY | 2024-10-14 11:51 | XMS_ITS | Clinical Summary ---
Author Organization [employer] [facility] Address [address] [place] [id number] Care Team Providers Care Spa Coordinator Name Role Phone Jose Alfredo Collazo MD Primary Care P rovider Allergies No known active allergies Medications albuterol HFA (VENTOLIN HFA) 90 mcg/actuation inhaler INHALE 2 PUFFS BY MOUTH EVERY 6 HOURS NEEDED 8 Active aspirin (ECOTRIN) 81 mg enteric coated tablet Take 1 Tab by mouth. 7 Active ARTIFICIAL TEARS, POLYVIN ALC, 1.4 % ophthalmic solution INSTILL ONE DROP TO OPERATIVE EYE FOUR TIMES A DAY UNTIL INSTRUCTED OTHERWISE, BEGIN 1 DAY PRIOR TO SURGERY 12 9 Active buPROPion (WELLBUTRIN XL) 150 mg Extended-Release tablet Take 300 mg by mouth once daily. 4 Active cyanocobalamin (VITAMIN B12) 500 mcg tablet Take 500 mcg by mouth. 4 Active loperamide (IMODIUM) 2 mg capsule Take 2 mg by mouth once daily if needed. 4 Active Blood Pressure Monitor KitIndications:Hea rt failure, NYHA class 3 (HC),History of falling,HTN (hypertension) Frequency of testing: every other day as needed 1 Each 4 Active nystatin powder (MYCOSTATIN) powder Apply topically to affected area(s). 4 Active spironolactone (ALDACTONE) 25 mg tabletIndications: HFrEF (heart failure with reduced ejection fraction) (HC),LV (left ventricular) mural thrombus Take 0.5 Tablets (12.5 mg) by mouth once daily. 45 Tablet 3 5 Active valsartan (DIOVAN) 40 mg tabletIndications: HFrEF (heart failure with reduced ejection fraction) (HC),LV (left ventricular) mural thrombus Take 1 Tablet (40 mg) by mouth once daily. 90 Tablet 3 5 Active mirtazapine (REMERON) 7.5 mg tabletIndications: Depression, unspecified depression type Take 1 Tablet (7.5 mg) by mouth at bedtime. 90 Tablet 1 5 Active furosemide (LASIX) 20 mg tabletIndications: Heart failure, NYHA class 3 (HC) Take 1 Tablet (20 mg) by mouth once every other day. 45 Tablet 1 5 Active magnesium oxide (MAG-OX 400) 400 mg tabletIndications: Hypomagnesemia Take 1 Tablet (400 mg) by mouth once daily. 90 Tablet 3 5 Active metFORMIN (GLUCOPHAGE XR) 500 mg Extended-Release tabletIndications: Type 2 diabetes mellitus with stage 2 chronic kidney disease, without long-term current use of insulin (HC) Take 2 Tablets (1,000 mg) by mouth once daily with evening meal. 180 Tablet 1 5 Active rosuvastatin 20 mg tabletIndications: Mixed hyperlipidemia Take 1 Tablet (20 mg) by mouth at bedtime. 90 Tablet 3 5 Active metoprolol succinate 25 mg Sustained-Release tabletIndications: Chronic systolic (congestive) heart failure (HC) Take 1 Tablet (25 mg) by mouth once daily. 90 Tablet 1 5 Active budesonide 3 mg capsuleIndications :Chronic diarrhea Take 1 Capsule (3 mg) by mouth once daily. 90 Capsule 5 Active Active Problems Problem Noted Date Diagnosed Date Stage 3a chronic kidney disease 07/06/2024 Overview (07/06/2024): 05/08/24: Cr 1.19 mg/dL 05/08/24: GFR 46 mL/min/1.73m2 05/08/24: BUN 19 mg/dL On meds: furosemide, metoprolol succinate, spironolactone, valsartan, vitamin B12 Chronic systolic (congestive) heart failure 03/16 Dilation of biliary tract 01/19/2024 Overview (01/19/2024): CT and ultrasound suggest cholecystitis. Patient has constitutional symptoms of illness including abdominal pain in loss of appetite. Will treat as cholecystitis. Obtain surgical consult. MRCP shows dilated common duct with no definite stone. Narrowing of the distal common duct at the ampulla. Reviewed with surgery and patient and family and decision is made to medically manage this for now. If recurrent symptoms may need ERCP. Follow clinically for symptoms Consider ERCP if developing symptoms, abdominal pain, anorexia, nausea, fever, jaundice. Asthma 01/19/2024 Chronic diarrhea 01/19/2024 Overview (01/19/2024): She has been diagnosed with irritable bowel syndrome in the past she is being treated with oral budesonide for this. She is not aware of having colonoscopy or a diagnosis of any type of colitis. Unclear whether her metformin therapy is making this worse. She does use antidiarrheal medicine as needed. During hospital stay diarrhea was much better though she was off metformin. Assess diarrhea as an outpatient when she read resumes metformin at a lower dose. Consider trial off of budesonide if her diarrhea resolves. Frailty syndrome in geriatric patient 01/19/2024 Overview (01/19/2024): Patient is been frail and at risk for falls. She has been resistant to outpatient physical therapy and occupational therapy at home. I discussed with the patient that she need to continue with therapy to maintain her independence. Lumbosacral radiculopathy 01/19/2024 LV (left ventricular) mural thrombus 01/19/2024 Overview (04/07/2024): >>OVERVIEW FOR LEFT VENTRICULAR THROMBUS WRITTEN ON 01/19/2024 9:02 PM BY JOSE ALFREDO COLLAZO MD Diagnosed at least 2 years ago on chronic warfarin therapy. No thrombus on repeat echo, so through shared decision making, stopped warfarin (02/2024). History of falling 01/05/2021 Obesity with body mass index 30 or greater 09/22 Overview (01/19/2024): This is clinically significant due to increased nursing cares, use of resources and specialty equipment. 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 Heart failure, NYHA class 3 10/09/2016 Overview (01/19/2024): 1. Left ventricular thrombus in the apex [...] the LV apex and MR has progressed.. >>OVERVIEW FOR CONGESTIVE HEART FAILURE (HC) WRITTEN ON 01/19/2024 9:02 PM BY JOSE ALFREDO COLLAZO MD History of heart failure with reduced ejection fraction as noted above. Echocardiogram shows ejection fraction 36% with severe tricuspid regurgitation. Improved from previous echo showing 30% ejection fraction. Add Jardiance for heart failure and diabetes treatment. Depression 06/26/2016 Overview (01/19/2024): Patient has had a relatively apathetic depression according to her family. She even acknowledges this. Family feels this is interfering with her engaging with therapy as an outpatient. She has been treated with an increasing dose of antidepressants. By accident she had been receiving Wellbutrin XL 150 mg 4 tablets daily. This dose was cut in half. He also remains on Remeron. Ongoing outpatient review of psychopharmacology and depression is warranted Arteriosclerosis of coronary artery 08/14/2013 Overview (01/19/2024): Status post TU to distal LAD 2016 Personal history of malignant neoplasm of breast 04/13/2011 Overview (01/19/2024): Left modified radical mastectomy, chemo, radiation. [place] lymph node biopsy with isotope and dye (2011). Hyperlipidemia 07/11/2004 Overview (01/19/2024): Maintained on simvastatin. Type 2 diabetes mellitus 09/12/2002 Overview (07/06/2024): Resume normal outpatient management . With heart failure will start Jardiance. Due to diarrhea will decrease metformin. Outpatient follow-up AI Summary: As of 05/08/24: The patient has a history of type 2 diabetes mellitus with stage 2 chronic kidney disease, not requiring long-term insulin. Empagliflozin was prescribed on 02/04/2024 for heart failure (NYHA class 3), left ventricular mural thrombus, and diabetes; metformin was added on 05/12/2024 for diabetes management. The patient also has a history of heart failure, and consideration was given to SGLT2 inhibitors for both diabetes and heart failure management. 01/20/24: A1c 8 % of total Hgb 05/08/24: Cr 1.19 mg/dL On meds: metformin Recent encounter dx: 05/10/24: Support OP Encounter - [facility] 05/08/24: Appointment - [facility] 04/07/24: Appointment - [facility] 02/04/24: Appointment - [facility] 01/20/24: Appointment - [facility] Recent notes: 05/08/24: Progress Notes - Office visit by Jose Alfredo Collazo MD ... [+] Type 2 diabetes mellitus with stage 2 chronic kidney disease, without long-term current use of insulin (HC) 04/18/24: Progress Notes by Sergio Barnes MD, PhD ... [+] ? Diabetes mellitus, type 2 (HC) 09/12/2002 01/20/24: Progress Notes - Nursing Notes by Jose Alfredo Collazo MD ... [+] ? Diabetes mellitus, type 2 (HC) E11.9 ... [+] Type 2 diabetes mellitus with stage 2 chronic kidney disease, without long-term current use of insulin (HC) E11.22 HEMOGLOBIN A1C ... [-] Type 2 diabetes 01/11/24: Consultation Note - Note by Rosa Elena Vargas (from [facility]) ... [-] Diabetes mellitus, type 2 ... [-] ?E11.9 - Type 2 diabetes mellitus without complications (ICD-10) ... [-] (4) Diabetes mellitus, type 2: 01/11/24: History & Physical Note - Note by Konrad Mcmillan (from [facility]) ... [-] (7) Diabetes mellitus, type 2: Resolved Problems Problem Noted Date Diagnosed Date Resolved Date Anticoagulation monitoring, INR range 2-3 01/21/2024 02/14/2024 Anticoagulant overdosage 01/19/202409/2023 Overview (01/19/2024): INR is 4.79. Likely due to poor oral intake in the last few days before admission while continuing normal warfarin dosing. Resume warfarin at previous dose pending outpatient followup and possible limited echocardiogram with definity contrast to evaluate for left ventricular thrombus. Consider discontinuing anticoagulation if no thrombus is seen. Hematuria 01/19/2024 04/07/2024 Overview (01/19/2024): Had hematuria and pyuria on admission. Urine cultures were relatively unremarkable. Recheck UA. If persistent hematuria consider urology referral Skin infection 01/19/2024 01/20/2024 Overview (01/19/2024): Small abscess with cellulitis in left inguinal area diagnosed prior to admission and treated with doxycycline. Clinically improved during hospital stay. Recheck as outpatient to make sure it is resolving. 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 Did try SGLT 2 inhibitor Jardiance but very cost prohibitive and developed yeast infection, no longer taking. No longer taking spironolactone. Has sublingual nitro. HFrEF: 30% as of 2021. [place] in EF 18% (September 2020). 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 09/22/2020 01/21/2024 Overview (01/19/2024): Intracardiac thrombus Other forms of dyspnea 09/05/202001/18 Postsurgical percutaneous tr ansluminal coronary angioplasty status 12/25/2016 01/20/2024 Sciatica, left side 04/15/2010 04/07/19 25 Encounters Date Type Department Care Team Description 08/22/2024 Telephone [facility] [address] [place] [address] Jose Alfredo Collazo MD Prior Authorization (budesonide 3 mg capsule APPROVED UNTIL 03/14/25) 08/18/2024 Refill [facility] [address] [place] [address] Jose Alfredo Collazo MD Refill Request (Budesonide) 08/01/2024 Orders Only [facility] [address] [place] [address] Sergio Barnes MD, PhD <No scans attached> from Last 3 Months Immunizations Immunization Administration Dates Next Due Hepatitis B (Adult) 09/24/2016,01/02/1994,1993 Hepatitis B, Unspecified 06/07/2012(Deferred: Isaias moser Refused) Influenza Virus, Unspecified 06/23/2013(Deferred : Patient Refused) Influenza, High-dose Inactivated 024,06/17/2018,02/15/2017,2016,05/28/2015 Influenza, High-dose Quadriv alent Inactivated 01/05/2023,01/02/2022,01/03/2021,2019 Influenza, IIV3 (Age 6-35 mos) 01/30/2010 Influenza, IIV3 (Age >=3 years) 12/23/2010 Pneumococcal Poly,23-Valent (Pneumovax) 09/24/2016,02/07/2001,08/18/1999 Pneumococcal conj 13-Valent (Prevnar 13) 02/26/2014 Td (Age >=7 Years) 12/08/2004 Td, Preservative Free (age > = 7 Years) 12/08/2004 Tdap 08/06/2020,06/26/2010 Tetanus Toxoid 11/28/1993 Zoster (Shingrix-RZV, recombinant) 08/06/2020, Zoster (Zostavax-ZVL, live) 11/29/2008 Zoster, Unspecified Formulation 12/16/2018(Defer red: Patient Refused) Social History Tobacco Use Types Packs/Day Years Used Date Smoking Tobacco: Never Smokeless Tobacco: Never Tobacco Cessation:Counseling Given: Yes Alcohol Use Standard Drinks/Week Comments Not Currently 0 (1 standard drink = 0.6 oz pure alcohol) occasional- 1 glass wine, 1 beer/week PHQ-2 Answer Date Recorded PHQ-2 TOTAL SCORE 0 07/06/2024 Social Connections Answer Date Recorded Do you often feel lonely or isolated from those around you? 0 01/20/2024 Financial Resource Strain Answer Date R ecorded Difficulty of Paying Living Expenses 3 01/20/2024 Difficulty of Paying Living Expenses Not on file 01/20/2024 Food Insecurity Answer Date Recorded Do you worry your food will run out before you are able to buy more? 1 01/20/2024 Transportation Needs Answer Date Record ed Does lack of transportation keep you from medica l appointments? 1 01/20/2024 Does lack of transportation keep you from work, meetings or getting things that you need? 1 01/20/2024 Housing Stability Answer Date Recorded What is your housing situation today? 1 01/20/2024 Utilities Answer Date Recorded Do you have trouble paying f or utilities (for example, heat, electricity, water, phone)? 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 Gender Identity Not on file Sexual Orientation Not on file Obstetrics History Last Filed Vital Signs Vital Sign Reading Time Taken Comments Blood Pressure 130/85 07/06/2024 3:28 PM CDT Pulse 50 07/06/2024 3:28 PM CDT Temperature 36.7 C (98 F) 12/21/2018 10:53 AM CDT Respiratory Rate 16 12/21/2018 2:36 PM CDT Oxygen Saturation 100% 07/06/2024 3:28 PM CDT Inhaled Oxygen Concentration - - Weight 88.4 kg (194 lb 14.4 oz) 07/06/2024 3:28 PM CDT Height 156.6 cm (5' 1.65) 07/06/2024 3:28 PM CD T Body Mass Index 36.05 07/06/2024 3:28 PM CDT Plan of Treatment Upcoming Encounters Date Type Department Care Team (Late st Contact Info) Description 10/16/2024 2:00 PM CDT Ancillary Procedure [facility] [address] [place] [phone] 11/21/2024 3:30 PM CDT Office Visit [facility] [address] [place] [address] Zhen Mcnulty MD [address] [facility] [address] [place] [address] Health Maintenance Due Date Last Done Comments DEXA/DXA scan for age 65+ 11/07/2007 RSV vaccine for adults or (1 - 1-dose 75+ series) 2017 COVID-19 vaccine series ( season) 2024 01/06/2024, 01/05/2023, 01/02/2022, Additional history exists Influenza Vaccine (#1) 2024 , 06/17/2018, 02/15/2017, Additional history exists BMI (ht and wt on same day) for age 18+ 07/06/2025 07/06/2024 Depression screening for age 12+ 07/06/2025 07/07/19 25 Medicare Wellness for age 65+ 07/07/2025 07/06/2024 Tetanus booster 08/06/2030 08/06/2020, 06/13, 12/08/2004, Additional history exists Hepatitis B series for 19+ Completed 09/24, 01/02/1994, 12/05/1993 Pneumococcal series for age 50+ Completed 09/24/2016, 02/26/2014, 02/07/2001, Additional history exists Zoster (shingles) series for age 50+ Completed 08/06/2020, 01/08/2020, 11/29/2008 Medical Devices Implanted Type Area Financial Sales Professional Device Identifier Shelf Expiration Date Model / Serial / Lot [facility] [employer] Imported - [id number] Implanted:Qty: 1 on 08/03/2018 by Guevara Wade MD at [facility] Right: Eye [facility] Eye Bank 08/14/2018 CORNEA PRECUT D# / [id number] / Mnsert [employer] Dmek Tissue Implanted:Qty: 1 on 12/21/2018 by Tim Francisco MD at [facility] Left: Eye 12/31/2018 CORNEA / [id number] / Insurance MEDICARE PART A HB ONLY MEDICARE PART B HB ONLY [employer] MEDICARE PB ONLY Advance Directives Documents on File Type Date Recorded Patient Lithographic Press Feeder Expl anation POLST 02/04/2024 * DNR (Latest Code Status on File) Date Activated Date Inactivated Comments 02/04/2024 6:08 PM OK for intuba tion * Full Code Date Activated Date Inactivated Comments 12/21/2018 10:40 [...] Code Status Discussion: Not Discussed Care Teams Spa Coordinator Relationship Specialty Start Date End Date Jose Alfredo Collazo MD [address] [place] [address] PCP - General Family Practice 01/20/24
--- OUTSIDE RECORDS SUMMARY | 2024-10-14 11:51 | XMS_ITS | Encounter Summary ---
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 Gender Identity Female 09/22/2017 1:45 PM CDT [...] diabetic retinopathy CDM Reports - EYEGEN Id: [id number] Status: Fnl documented in this encounter Plan of Treatment Not on file documented as of this encounter Visit Diagnoses Not on filedocumented in this encounter Additional Health Concerns Infection Onset Date Last Indicated Resolved Time COVID19 Pending 09/05/2020 09/05/2020 09/05/2020 6 :27 PM CDT COVID19 Pending 10/23/2020 10/23/2020 10/23/2020 1 1:52 PM CDT COVID19 Pending 03/25/2022 03/25/2022 03/26/2022 2 :00 PM SPRAYER AUTOMATIC SPRAY MACHINE documented as of this encounter Care Teams Tester Wafer Substrate Relationship Specialty Start Date End Date Elsewhere, Pcp PCP - General Internal Medicine 02/21/24 documented as of this encounter
--- OUTSIDE RECORDS SUMMARY | 2024-10-14 11:51 | XMS_ITS | Clinical Summary ---
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 For routine questions regarding patient records, call [phone] during business hours, M-F 8:00 AM - 5:00 PM Central Time. Record requests for emergency care only can be directed to [phone] at any time.[facility] Allergies No known active allergies Medications * This document contains information received from the source organization and may not represent a complete record from that organization. nitroglycerin (NITROSTAT) 0.4 mg SL tabletIndications :angina Place 1 tablet (0.4 mg total) under the tongue every 5 (five) minutes as needed for chest pain Indications: angina, a type of chest pain. 25 tablet 11 2 Active [address] tablet Take 81 mg by mouth daily. Active albuterol (Ventolin HFA) 90 mcg/actuation inhalerIndication s:Asthma Mild Intermittent (HCC) Inhale 2 puffs every 6 (six) hours as needed for wheezing. 54 g 3 3 Active traZODone (DESYREL) 50 mg tabletIndications :Insomnia Take 1 tablet (50 mg total) by mouth at bedtime as needed for sleep. 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 Do not crush or chew. 90 tablet 3 4 Active rosuvastatin (CRESTOR) 20 mg tabletIndications :Hyperlipidemia Take 1 tablet (20 mg total) by mouth daily. 90 tablet 3 4 Active metFORMIN XR (GLUCOPHAGE-XR) 500 mg 24 hr tablet take two tablets by mouth twice a day 360 tablet 3 4 Active budesonide (Entocort EC) 3 mg 24 hr capsuleIndication s:Morbid Obesity (HCC),Colitis Microscopic Take 2 capsules (6 mg total) by mouth daily. 60 capsule 1 4 Active acetaminophen (TylenoL) 500 mg tablet Take 2 tablets (1,000 mg total) by mouth 4 (four) times a day. 4 Active loperamide (Imodium A-D) 2 mg capsule Take 1 capsule (2 mg total) by mouth daily as needed for diarrhea. 4 Active naloxone (Narcan) 4 mg/actuation nasal spray Administer 1 spray (4 mg total) into one nostril as needed for reversal. Use 1 spray in 1 nostril. Repeat with second device in other nostril after 2-3 minutes if no or minimal response. 4 Active furosemide (Lasix) 40 mg tabletIndications :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 Kidney Disease Or Unspecified Chronic Kidney Disease (HCC),Cardiomyopa thy Dilated (HCC) Take 1 tablet (40 mg total) by mouth every other day. 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 4 Active Additional Information Patient taking differently: Warfarin managed by outside facility, Reported on 01/21/2024 valsartan (Diovan) 40 mg tablet TAKE 1/2 TABLET BY MOUTH TWO TIMES A DAY 90 tablet 3 4 Active nystatin (Nystop) 100,000 unit/gram powder Apply 1 Application topically 2 (two) times a day. Apply to groin folds. 15 g 1 4 Active buPROPion XL (Wellbutrin XL) 150 mg 24 hr tablet Take 1 tablet (150 mg total) by mouth every morning for 7 days, THEN 2 tablets (300 mg total) every morning. 180 tablet 3 4 Active cefdinir (Omnicef) 300 mg capsule Take 1 capsule (300 mg total) by mouth 2 (two) times a day before morning and evening meals. 20 capsule 4 Active doxycycline hyclate (Vibramycin) 100 mg capsule Take 1 capsule (100 mg total) by mouth 2 (two) times a day. 20 capsule 4 Active Active Problems Problem Noted Date Diagnosed [...] cares, use of resources and specialty equipment. Retirement (Current) Anticoagulant Treatment 09/12 Overview (09/22/2020): Intracardiac thrombus Assessment & Plan (10/07/2020 4:06 PM CDT): She has followed with [facility] anticoagulation team. Assessment & Plan (09/22/2020 [...] 09/17/2020 Overview (09/22/2020): Hospital admission 09/05 to 03/2020. Assessment & Plan (09/22/2020 2:06 PM CDT): Anticoagulation with warfarin recommended 3 to 6 months. Will follow with [facility] anticoagulation team. Congestive Heart Failure Eje ction Fraction Less Than 35 Percent And [place] Heart Association Class 2-3 09/13/2020 Overview (04/11/2021): [...] metabolic panel in 2 weeks after starting. Assessment & Plan (03/11/2021 2:46 PM CONTACT CENTER REP): Handicap parking permit renewed for 6 years [...] gone ahead and refer her to [facility] Cardiology for their assistance in managing [...] that time. Plan to schedule the [facility] Cardiology follow-up and echo prior. ECG also ordered today for an irregular pulse. 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 Hume lymph node biopsy with isotope and dye [...] smoker Assessment & Plan (03/11/2021 3:05 PM CONTACT CENTER REP): Will continue on current regimen. She will [...] months Next labs: 6 months Referrals: None [facility] Tobacco None: No Aspirin: yes [...] if celiac negative, Order fecal calprotectin (Epic: [id number]) and fecal fat (Epic: [id number]). Categorize test results into 1 of 3 types of chronic diarrhea, per ask [place] Expert chronic diarrhea algorithm. 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 No 10/17/2023 Hunger Vital Sign Answer Date Recorded Within [...] PHQ-9 Total Score (max 27) 16 10/04 Housing Stability Answer Date Recorded What is [...] PM CDT Legal Sex Female 7:19 AM CONTACT CENTER REP Gender Identity Female 09/22/2017 1:45 PM CDT Sexual Orientation Straight 09/22/2017 1: 45 PM CDT Last Filed Vital Signs Vital Sign Reading Time Taken Comments Blood Pressure 138/77 01/06/2024 3:23 PM CDT Pulse 83 01/06/2024 3:23 PM CDT Temperature 36.3 C (97.3 F) 01/06/2024 3:23 PM CDT Respiratory Rate 17 10/20/2023 1:06 PM CDT Oxygen Saturation 98% 10/20/2023 11:50 AM CDT Inhaled Oxygen Concentration - - Weight 85.9 kg (189 lb 6 oz) 01/06/2024 3:23 PM CDT Height 157.5 cm (5' 2) 10/17/2023 2:50 PM CDT Body Mass Index 34.64 10/17/2023 2:50 PM CDT Plan of Treatment Health Maintenance Due Date Last Done Comments Diabetic Eye Exam 01/24/2005 01/25/2004 RSV vaccine - (32-36 weeks) or 60+ years (1 - 1-dose 75+ series) 2017 Diabetic Office Visit with Foot Exam 08/06/2021 08/06/2020, 08/10/2019, 08/10/2019 Urine Albumin 12/01/2022 12/01/2021, 07/14, 08/08/2019, Additional history exists Depression Monitoring (PHQ-9) 02/05/2024 10/05/2023 Depression Monitoring (PHQ-9 for quality tracking) 03/15/2024 Fall Risk Screen (Annual) 03/15/2024 Hemoglobin A1C 04/21/2024 01/20/2024, 10/14, 05/06/2023, Additional history exists COVID-19 Vaccine ( season) 2024 01/06/2024, 01/05/2023, 01/02/2022, Additional history exists Creatinine Level (Kidney Function Test) 11/01/2024 11/02/2023, 10/19/2023, 10/17/2023, Additional history exists Potassium Level 11/01/2024 11/02/2023, 08/0 08/2023, 10/17/2023, Additional history exists Sodium Level 11/01/2024 11/02/2023, 08/0 08/2023, 10/17/2023, Additional history exists Influenza Vaccine (#1) 2024 , 01/05/2023, 01/02/2022, Additional history exists Office Visit for Blood Pressure Check / Re-check 01/05/2025 01/06/2024 DTaP,Tdap,and Td Vaccines (3 - Td or Tdap) 08/06/2030 08/06/2020, 06/26/2010, 12/08/2004 Hepatitis B Vaccines Completed 09/24/2016, 01/02/1994, 12/05/1993 Pneumococcal vaccine (50+ years) Completed 09/24/2016, 02/26/2014, 02/07/2001, Additional history exists Zoster Vaccines Completed 08/06/2020, 12/14, 11/29/2008 IPV Vaccines Aged Out No longer eligi ble based on patient's age to complete this topic Goals Goal Patient Goal Type Associated Problems Recent Progress Patient-Stated? Author Blood Pressure < 140/90 Blood Pressure 138/77(01/05 3:23 PM CDT) No Honey King, R.N. Do one productive activity per day General On track(2018 1:31 PM CDT) Yes Teodora Horvath M.SLiliya., R.N. Note: i.e. 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 Note: Pt will look into attending Senior vitality group at [facility] starting in November 20 went to funerals, talked with another lady she did not know there, doing [employer], swim aerobics, visited her son 11/23/18 went to [employer], going to [place] to visit relatives, going to [employer] 12/07/18 went [place] visit mom and went to concert in [place]. Made a new friend. Hemoglobin A1c < 7.0 Result Component 9.9(05/06/19 24 1:03 PM CONTACT CENTER REP) No Honey King R.N. PHQ-9 Total Score (max 27) < 5 Symptom Management 16( 4 2:19 PM CDT) No Teodora Horvath M.S.N., R.N. Medical Devices Implanted Type Area Gear Repairer Device Identifier Shelf Expiration Date Model / Serial / Lot Alpine Stent 3.5 X 15 - [employer] [id number] Implanted:Qty: 1 on 12/24/2016 Cardiac Stent Berry Description:Device Manufactu rer - [employer]. Device Status Text - [id number]. Screw-Matrixrib S-Tap Lock 2.9 X 12mm - [place] [id number] Implanted:Qty: 5 on 02/16/2012 Hardware e.g. pins/screws/ rods Depuy Synthes Description:Device Manufactu rer - Synthes. Device Status Text - [id number]. Plate-Matrixrib Univ. 8 Holes - [employer]ama [id number] Implanted:Qty: 1 on 02/16/2012 Hardware e.g. pins/screws/ rods Depuy Synthes Description:Device Manufactu rer - Synthes. Device Status Text - [id number]. Screw-Matrixrib S-Tap Lock 2.9 X 10mm - [place] [id number] Implanted:Qty: 3 on 02/16/2012 Hardware e.g. pins/screws/ rods Depuy Synthes Description:Device Manufactu rer - Synthes. Device Status Text - [id number]. Procedures Procedure Name Priority Date/Time Associated Diagnosis Comments BASIC METABOLIC PANEL, S/P Routine 10/19/2023 6:00 AM CDT HEMOGLOBIN A1C, B Routine 05/06/2023 1:0 3 PM CONTACT CENTER REP Diabetes Mellitus Type 2 (HCC) ALBUMIN, RANDOM, U Routine 12/01/2021 3: 22 PM CDT Diabetes Mellitus Type 2 (HCC) from Last 3 Months or Most Recently Relevant to Health Maintenance Results * (ABNORMAL) Basic Metabolic Panel (10/19/2023 6:00 AM CDT) Pathologist [facility] Potassium, S 4.2 3.6 - 5.2 [...] l Result [facility] [address] [place] [address], [address] [address] * (ABNORMAL) Hemoglobin A1c (05/06/2023 1:03 PM CONTACT CENTER REP) Hemoglobin A1c, B 9.9(H) 4.0 - 5.6 % 05/06/2023 4:46 PM CONTACT CENTER REP DTL Comment: Hemoglobin A1c values greater than or equal to 6.5 percent are diagnostic for diabetes mellitus. Diagnosis should be confirmed by repeat testing. In diabetic patients, HbA1c goals should be discussed with healthcare provider. Blood (Blood, Venous) 05/06/2023 1:03 PM CONTACT CENTER REP 05/06/2023 3:20 PM CONTACT CENTER REP iMch Luevano D.O. LAB BLOOD ADD-ON Final Result Performing Organization Address [facility] Co de Phone Number [facility] [address] [place] [address], [facility] [address] [place] [address] * Albumin, Random, Urine (12/01/2021 3:22 PM CDT) Pathologist [facility] Albumin, Random, U <5.0 mg/L 2021 8:34 AM CDT DTL Comment: ----ADDITIONAL INFORMATION---- This test has been modified from the gauge operator's instructions. Its performance characteristics were determined by [facility] in a manner consistent with [...] D.O. LAB URINE ORDERABLES Fi nal Result [facility] [address] [place] [address], [place] DTL [facility] [address] [place] [address] from Last 3 Months or Most Recently Relevant to Health Maintenance Insurance [facility] MEDICARE Advance Directives For more information, please contact: [phone] * DNR (Latest Code Status on File) [...] Answer Comments Full Code: Discussed Care Teams Tool Shaper Setup Operator Relationship Specialty Start Date End Date Elsewhere, Pcp PCP - General Internal Medicine 02/21/24
--- NOTE | 2024-10-14 12:06 | ED.GENADULT ---
HPI - General Adult General Time Seen by Provider: 12:06 Date Seen: 10/14/24 Chief complaint: Nausea/Vomiting Stated complaint: Nauseated - Cannot Eat Time Seen by Provider: 10/14/24 12:02 Source: patient, RN notes reviewed and old records reviewed Mode of arrival: ambulatory Limitations: no limitations History of Present Illness HPI narrative: This 83-year-old female is coming in with family with complaint of nausea and some abdominal pain about 3-4 days ago. She tells me it is primarily nausea without vomiting. She states she is not really having much pain. She did tell nursing staff that she had right lower quadrant pain. She has not eaten anything since last night, appetite is diminished. She feels like any time she eats she gets nauseated. She does some nursing staff that she has ?sugar diabetes ?and is known to have a gallbladder issue. She wonders if the gallbladder could be a problem. She denies any change in bowel habits, she is denying any acute diarrhea, no change in stool color. She told nursing staff her pain was 7/10 on arrival, she denies any significant pain when I am seeing her but complains of nausea. She has not noted any fevers. She notes no reflux symptoms, no respiratory symptoms, no urinary symptoms. Her family notes that Dr. Mcmillan told them during her last hospitalization that she had a large gallstone, she was treated for infection, they did not think surgery was necessary or perhaps at the time that she was stable for surgery. Her son notes that she is much healthier now than she was those few months ago. She had been anticoagulated, believe she was not found to have the left ventricle thrombus in the past, [facility] with consideration of stopping the anticoagulant. I do not see Coumadin or warfarin on her current med rec. Her biliary tract was dilated last time, she was treated for cholecystitis and was sent on outpatient Augmentin when she improved. She was treated for sepsis from the cholecystitis. She has chronic heart failure, echo was obtained last hospitalization. She also is noted to have type 2 diabetes, Jardiance was started for her diabetes and the congestive heart failure. She was having chronic diarrhea and her metformin dose was diminished. Patient is also noted to have prolonged QT on her problem list, need to consider this with antiemetic use. Related Data Home Medications ?Medication ?Instructions ?Recorded ?Confirmed aspirin 81 mg capsule 81 mg PO DAILY 01/11/24 10/14/24 budesonide 3 mg 3 mg PO DAILY 01/11/24 10/14/24 capsule,delayed,extended release bupropion HCl 150 mg 24 hr tablet, 300 mg PO DAILY 01/11/24 10/14/24 extended release metoprolol succinate 25 mg 25 mg PO HS 01/11/24 10/14/24 tablet,extended release 24 hr rosuvastatin 20 mg tablet 20 mg PO DAILY 01/11/24 10/14/24 valsartan 40 mg tablet 40 mg PO HS 01/11/24 10/14/24 furosemide 20 mg tablet 20 mg PO Q48H 10/14/24 10/14/24 magnesium oxide 400 mg (241.3 mg 400 mg PO HS 10/14/24 10/14/24 magnesium) tablet mirtazapine 7.5 mg tablet 7.5 mg PO HS 10/14/24 10/14/24 spironolactone 25 mg tablet 12.5 mg PO DAILY 10/14/24 10/14/24 Previous Rx's ?Medication ?Instructions ?Recorded metformin 500 mg tablet,extended 1,000 mg (2 x 500 mg) PO DAILY #60 01/13/24 release 24 hr tabs Allergies Allergy/AdvReac Type Severity Reaction Status Date / Time No Known Drug Allergies Allergy Verified 06/10/24 14:08 Review of Systems Status of ROS: Reports: 6 or more systems reviewed and unremarkable except as noted in History and below [facility] Medical History (Updated 10/14/24 @ 17:09 by Cassidy Owusu MD) Personal history of malignant neoplasm of breast ?Z85.3 - Personal history of malignant neoplasm of breast (ICD-10) Peripheral circulatory disorder due to type 2 diabetes mellitus ?E11.51 - Type 2 diabetes mellitus with diabetic peripheral angiopathy without gangrene (ICD-10) Obesity with body mass index 30 or greater ?E66.9 - Obesity, unspecified (ICD-10) Lumbosacral radiculopathy ?M54.17 - Radiculopathy, lumbosacral region (ICD-10) Hyperlipidemia ?E78.5 - Hyperlipidemia, unspecified (ICD-10) Congestive heart failure ?I50.9 - Heart failure, unspecified (ICD-10) Asthma ?J45.909 - Unspecified asthma, uncomplicated (ICD-10) Arteriosclerosis of coronary artery ?I25.10 - Atherosclerotic heart disease of [place] coronary artery without angina pectoris (ICD-10) Dilation of biliary tract ?K83.8 - Other specified diseases of biliary tract (ICD-10) Depression ?F32.A - Depression, unspecified (ICD-10) Skin infection ?L08.9 - Local infection of the skin and subcutaneous tissue, unspecified (ICD-10) Hematuria ?R31.9 - Hematuria, unspecified (ICD-10) Frailty syndrome in geriatric patient ?R54 - Age-related physical debility (ICD-10) Left ventricular thrombus ?I51.3 - Intracardiac thrombosis, not elsewhere classified (ICD-10) Chronic diarrhea ?K52.9 - Noninfective gastroenteritis and colitis, unspecified (ICD-10) Prolonged QT interval ?R94.31 - Abnormal electrocardiogram [ECG] [EKG] (ICD-10) Hypertension ?I10 - Essential (primary) hypertension (ICD-10) CKD (chronic kidney disease) ?N18.9 - Chronic kidney disease, unspecified (ICD-10) History of falling ?Z91.81 - History of falling (ICD-10) VIOLET (obstructive sleep apnea) ?G47.33 - Obstructive sleep apnea (adult) (pediatric) (ICD-10) Diabetes mellitus, type 2 ?E11.9 - Type 2 diabetes mellitus without complications (ICD-10) Cardiomyopathy ?I42.9 - Cardiomyopathy, unspecified (ICD-10) Surgical History History of coronary artery stent placement ?Z95.5 - Presence of coronary angioplasty implant and graft (ICD-10) History of modified radical mastectomy ?Z90.10 - Acquired absence of unspecified breast and nipple (ICD-10) Family History Mother Depression Breast cancer Social History (Updated 10/14/24 @ 18:29 by Cassidy Owusu MD) Narrative: Lives with her daughter in an apartment in [place]. Son is also in [place]. She does not smoke. She occasionally drinks alcohol, less than once a week. She walks with a walker. Daughter sets up her medications. What is your current living situation?: I presently have a place to live Problems where you live: no known problems Problems where you live details: n/a In the past 12 months, utilities in danger of being shut off: no In past 12 months, lack of transportation kept you from medical appts, meetings, work, or getting things needed for daily living: no In the past 12 mos, have been you worried that your food would run out before you had money to buy more?: never true In the past 12 mos, the food you bought just didn't last and you didn't have money to buy more?: never true Highest level of school completed/degree received: some college, no degree Smoking Status: Never smoker Do you use any of these nicotine containing products: None Second hand tobacco smoke exposure: No How often do you have a drink containing alcohol: monthly or less How many standard drinks containing alcohol do you have on a typical day: 1 or 2 How often do you have six or more drinks on one occasion: Never AUDIT-C Alcohol total score: 1 Non-prescribed substance use: denies use Caffeine: No How often does anyone, including family, friends and others, physically hurt you: never How often does anyone, including family, friends and others, insult or talk down to you: never How often does anyone, including family, friends and others, threaten you with harm: never How often does anyone, including family, friends and others, scream or curse at you: never service: No Exam Const: Vital Signs, click to edit/add: Vital Signs - 24 hr 10/14/24 11:56 10/14/24 12:30 10/14/24 13:00 Temperature 97.1 F L Pulse Rate 85 88 Pulse Rate [Pulse Oximeter] 118 H Respiratory Rate 16 19 21 Blood Pressure 141/65 H Blood Pressure [Ri ght Upper Arm] 133/87 Pulse Oximetry 98 96 97 Oxygen Delivery Me thod Room Air 10/14/24 13:34 10/14/24 14:32 10/14/24 14:59 Temperature 97.8 F Pulse Rate 71 94 Pulse Rate [Pulse Oximeter] 87 Respiratory Rate 14 22 16 Blood Pressure 138/91 H 158/69 H Blood Pressure [Ri ght Upper Arm] 155/78 H Pulse Oximetry 96 96 97 Oxygen Delivery Me thod Room Air 10/14/24 14:59 10/14/24 15:01 10/14/24 15:32 Temperature Pulse Rate 86 85 89 Pulse Rate [Pulse Oximeter] Respiratory Rate 16 19 18 Blood Pressure 155/78 H 148/77 H 152/72 H Blood Pressure [Ri ght Upper Arm] Pulse Oximetry 97 96 98 Oxygen Delivery Me thod This 83-year-old female is alert, interactive, no apparent distress. Pupils equal round reactive to light, sclera clear. Symmetrical facial function, speech is normal. Neck without any noted masses, nontender. Lungs are clear, good air entry, no wheezing crackles, no tachypnea. CV regular rate and rhythm, normal S1-S2, do not hear any significant murmur. Abdomen is obese but soft, maybe some mild right upper quadrant tenderness but notes organomegaly, no rebound or guarding, no masses. Body habitus is obese which could preclude evaluation of abdominal masses or organomegaly. She is able speak in complete sentences. Moving arms and legs, no jaundice noted, no acute rash on skin visualized. Documenting provider has reviewed patient's vital signs: yes Course Reevaluation(s) Time of Reevaluation #1: 13:18 Reevaluation #1: Reviewed with patient that on her preliminary ultrasound per college dean, no evidence of cholecystitis, there is a large gallstone which is known. It is still possible that the gallstone could be causing her symptoms. We did review that her EKG is confirming prolonged QT. She is still having nausea and we will give her IV Ativan for control of this. Time of Reevaluation #2: 13:55 Reevaluation #2: Have reviewed the ultrasound findings and that the radiologist is recommending patient have CT. Her C reactive protein is elevating, liver enzymes are stable, white blood count is normal. Our surgeon on-call is currently in the OR, unable to speak to me but will talk to her once she is done in the OR regarding this patient. I do suspect that this may be gallstone pathology for this patient but the CT will help rule out any other etiologies. Time of Reevaluation #3: 15:13 Reevaluation #3: Patient's urinalysis positive for UTI, prior cultures show no evidence of infection to review. Will give her Rocephin for UTI. Her CT is concerning for peptic ulcer disease. Her gallbladder is distended with a large laminated stone but no evidence of primary cholecystitis. They do talk of inflammation extending to the pancreaticoduodenal groove likely reactive groove pancreatitis. Her serum lipase is normal however. The surgeon is still in the OR, do think that this patient should be placed in the hospital, will talk to the hospitalist awaiting discussion with our surgeon as well. Additional Reevaluation(s): 3:24 p.m.: Have reviewed with patient her CT is showing potential for peptic ulcer disease. She has received 40 mg IV Protonix. We also reviewed the UTI, has not received the Rocephin yet. Will talk to the hospitalist, do not think she can go home, is not tolerating orals. At her age of 83 and her comorbidities, do think that this is a high-risk patient that needs to prove stability and ability for oral intake before discharge. Have reviewed with her that there are other things happening, unclear if the gallstone is causing any symptomatology. Surgeon is still in the OR. Consultations Consultation #1: Did speak with Dr. Owusu the hospitalist. She believes this patient will be observation at this time. She will accept patient, she is aware I still have not spoken with our surgeon. Time: 15:39 Vital Signs Vital signs: Initial Vital Signs Temperature 97.1 F L 10/14/24 11:56 Temperature Source Temporal Artery Scan 10/14/24 11:56 Pulse Rate 118 H 10/14/24 11:56 Respiratory Rate 16 10/14/24 11:56 Blood Pressure 133/87 10/14/24 11:56 Blood Pressure Mean 102 10/14/24 11:56 Blood Pressure Position Sitting 10/14/24 11:56 Pulse Oximetry 98 10/14/24 11:56 Oxygen Delivery Method Room Air 10/14/24 11:56 Vital Signs Temperature 97.1 F L 10/14/24 11:56 Pulse Rate 118 H 10/14/24 11:56 Respiratory Rate 16 10/14/24 11:56 Blood Pressure 133/87 10/14/24 11:56 Pulse Oximetry 98 10/14/24 11:56 Oxygen Delivery Method Room Air 10/14/24 11:56 Temperature 98.0 F 10/14/24 16:52 Pulse Rate 85 10/14/24 16:52 Respiratory Rate 16 10/14/24 16:52 Blood Pressure 132/82 10/14/24 16:52 Pulse Oximetry 96 10/14/24 16:52 Oxygen Delivery Method Room Air 10/14/24 16:52 Medications Administered Medications: Discontinued Medications Generic Name Dose Route Start Last Admin Trade Name Kyle PRN Reason Stop Dose Admin Sodium Chloride 1,000 mls @ 500 mls/hr 10/14/24 12:12 10/14/24 15:18 0.9 % Sodium Chloride 1000 Ml IV 10/14/24 14:11 Infused .Q2H CHRIS Infusion Ceftriaxone Sodium 1 gm/ 100 mls @ 200 mls/hr 10/14/24 15:12 10/14/24 16:14 Sodium Chloride IVPB 10/14/24 15:13 Infused ONCE ONE Infusion Lorazepam 0.5 mg 10/14/24 13:19 10/14/24 13:30 Lorazepam 2 Mg/Ml Inj IVP 10/14/24 13:20 0.5 mg ONCE ONE Administration Pantoprazole Sodium 40 mg 10/14/24 14:45 10/14/24 14:54 Pantoprazole Sodium 40 Mg Inj IVP 10/14/24 14:46 40 mg ONCE ONE Administration Pantoprazole Sodium 40 mg 10/14/24 15:12 10/14/24 15:48 Pantoprazole Sodium 40 Mg Inj IVP 10/14/24 15:13 Not Given ONCE ONE Medical Decision Making Lab Data Lab results reviewed: Yes I reviewed the patient's lab results Labs: Lab Results 10/14/24 10/14/24 10/14/24 Range/Units 12:18 12:45 13:56 WBC 8.01 (4.50-11.00) K/uL RBC 3.59 L (4.00-5.20) m/uL Hgb 11.2 L (12.0-16.0) gm/dL Hct 34.5 (33.0-51.0) % MCV 96 (80-100) fL MCH 31 (26-34) pg MCHC 33 (32-36) gm/dL RDW Coeff of [place] 13.0 (11.5-15.5) % Plt Count 276 (140-440) K/uL Neut % (Auto) 66.1 (42.0-72.0) % Lymph % (Auto) 22.5 (20-44) % [place] % (Auto) 10.4 (0.0-11.0) % Eos % (Auto) 0.5 (0.0-7.0) % Baso % (Auto) 0.4 (0.0-3.0) % Neut # (Auto) 5.30 (1.7-7.0) K/uL Lymph # (Auto) 1.80 (0.90-2.90) K/uL [place] # (Auto) 0.80 (0.00-0.90) K/UL Eos # (Auto) 0.04 (0.00-0.50) K/uL Baso # (Auto) 0.03 (0.00-0.30) K/uL Abs Immat Gran (auto) 0.01 (0.00-0.30) K/uL Imm/Tot Granulo (auto) 0.1 % Sodium 132 L (135-149) mmol/L Potassium 5.0 (3.6-5.1) mmol/L Chloride 102 (96-114) mmol/L Carbon Dioxide 23 (20-32) mmol/L Anion Gap 7 (7-15) mEq/L BUN 23 (7-30) mg/dL Creatinine 1.1 (0.5-1.5) mg/dL Estimated Creat Clear 31.72 Estimated GFR 50 ml/min Glucose 245 H (60-115) mg/dL Lactate 1.6 (0.5-1.9) mmol/L Calcium 9.7 (8.4-10.6) mg/dL Total Bilirubin 0.5 (0.1-1.5) mg/dL Direct Bilirubin 0.3 (0.0-0.5) mg/dL AST 24 (12-35) U/L ALT 16 (4-35) U/L Alkaline Phosphatase 61 (40-150) U/L C-Reactive Protein 5.8 H (0.5-1.0) mg/dL Total Protein 6.8 (6.0-8.3) g/dL Albumin 3.9 (3.3-5.0) g/dL Lipase 114 (23-300) U/L Urine Color Yellow (Yellow) Urine Appearance Clear (Clear) Urine pH 5.5 (5.0-8.5) Ur Specific [place] 1.010 (1.000-1.030) Urine Protein Negative (Negative) Urine Glucose (UA) 2+ A (Negative) Urine Ketones Negative (Negative) Urine Blood Negative (Negative) Urine Nitrite Positive A (Negative) Urine Bilirubin Negative (Negative) Urine Urobilinogen 0.2 (0.2-1.0) Ur Leukocyte Esterase Negative (Negative) Urine RBC 0-2 (0-2) Urine WBC 2-5 (0-5) Ur Squamous Epith Cells Few (None-Few) Urine Bacteria Many A (None) POC Glucose 245 H (60-115) mg/dl Imaging Data US - abdomen: Attestation: I have reviewed the pertinent imaging results. Radiologist's impression: Patient: RK CONRAD Facility:?[facility] Patient ID:?[id number] Site Patient ID:?[id number]. Site :?[id number] Study:?US-Abdomen RUQ-10/14/2024 1:18:07 PM Ordering Physician:Doe Thornton Final Report: INDICATION: Right upper quadrant pain. TECHNIQUE: Ultrasound abdomen limited. Sonographic images of the right upper quadrant were obtained using turk-scale and color Doppler images. COMPARISON: CT dated 01/11/2024. FINDINGS: Limited examination due to bowel gas. Liver: The liver is partially obscured. Mild heterogeneous echogenicity and coarsened liver echotexture. No definite liver lesion. Gallbladder: The gallbladder is obscured. There is shadowing from a stone measuring approximally 4.6 centimeters. No wall thickening. No definite pericholecystic fluid. Negative sonographic Mathew`s sign. Common bile duct: 3 mm. Pancreas: Obscured by bowel gas Right kidney: Normal in size. Normal echotexture and cortex. No suspicious masses, stones, or hydronephrosis. Vasculature: Proximal abdominal aorta: Normal in caliber. IVC: Patent. Main portal vein: Patent. Ascites: None visualized. IMPRESSION: 1. Limited examination. Partially obscured gallbladder with large stone. No definite evidence of acute cholecystitis. To consider CT for further evaluation. 2. Partially obscured heterogeneous liver. This could represent chronic underlying liver disease. Recommend correlation with liver function tests. Dictated by Aden Yuan MD @ 10/14/2024 1:49:54 PM (Electronic Signature) CT scan - abdomen: Attestation: I have reviewed the pertinent imaging results. Radiologist's impression: Patient: RK CONRAD Facility:?[facility] Patient ID:?[id number] Site Patient ID:?[id number]. Site :?[id number] Study:?CT-Abdomen/Pelvis W/IV CONTRAST-10/14/2024 2:09:24 PM Ordering Physician:Doe Thornton Final Report: INDICATION: Nausea/anorexia TECHNIQUE: CT abdomen and pelvis acquired with 100 cc Omnipaque 350 IV contrast. COMPARISON: CT dated 01/11/2024. MRI dated 01/11/2024 FINDINGS: Scarring within the medial right lower lobe. Instrumentation within the posterior left ribs with tissue defect, unchanged. The liver is unremarkable. Gallbladder is distended. A large stone is noted within the gallbladder. There is mild stranding along the inferior aspect of gallbladder but favored to reactive due to the pathology within the gastric outlet. No definitive evidence of primary cholecystitis. Resolution of the previously seen intrahepatic biliary ductal dilatation. Additionally there is improved dilatation of the common bile duct which on coronal images measures 8 millimeters, previously approximately 12 millimeters on the prior. Prominent soft tissues noted at the ampulla not well evaluated. The spleen is unremarkable. There is significant atrophy of the pancreas. There is inflammation extending into the pancreaticoduodenal groove which is likely from the gastro duodenal pathology. No gross evidence primary pancreatitis is otherwise seen. No main ductal dilatation. Adrenal glands are unremarkable. The kidneys are unchanged in appearance. There is a contour abnormality of the periphery of the left kidney with hypoattenuation, unchanged, likely scarring (57). No hydronephrosis. The urinary bladder is partially distended. The stomach is partially distended. There is severe abnormal thickening and stranding at the level of the gastric outlet as evidence for inflammation and likely ulceration. A prominent adjacent duodenal diverticulum is seen which appears to be chronic. No definite evidence of perforation. No free air or organized drainable abscess is otherwise seen. The distal duodenum is normal in appearance with small diverticulum. The small bowel is unremarkable. Sigmoid diverticulosis is seen without CT evidence of acute diverticulitis. The appendix is nondilated. No organized drainable fluid collection. No free air. No lymphadenopathy. The uterus is unremarkable. The portal vein is patent. Aorta is normal in caliber. Bone windows demonstrate no acute fracture. IMPRESSION: 1. Significant thickening and stranding centered at the gastric outlet as evidence for inflammation and likely peptic ulcer disease. 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 No free air. Follow-up upper endoscopy is recommended for further evaluation. 2. Distended gallbladder with large laminated stone. Mild inflammation extends to the gallbladder with no definite evidence of primary cholecystitis. 3. Inflammation extends to the pancreatico duodenal groove, likely reactive groove pancreatitis. Recommend correlation with serum lipase. Please note that all CT scans at this facility use dose modulation, iterative reconstruction, and/or weight-based dosing when appropriate to reduce radiation dose to as low as reasonably achievable. Dictated by Aden Yuan MD @ 10/14/2024 2:39:03 PM (Electronic Signature) ECG Data Attestation: I personally reviewed and interpreted this ECG as follows: (Sinus rhythm, 84 beats per minute, PVC seen. Right bundle branch block. QT corrected 496 milliseconds.) Prior ECG tracings: available for review Discharge Plan Discharge Clinical Impression: Nausea, Abnormal abdominal CT scan, Abnormal finding on urinalysis, Cholelithiasis Patient Disposition: Admitted As Observation Condition: Stable
--- NOTE | 2024-10-14 12:11 | CRLHL7_ITS ---
For Patients: As a result of the Cures Act, medical imaging exams and procedure reports are released immediately into your electronic medical record. You may view this report before your referring provider. If you have questions, please contact your health care provider. INDICATION: Right upper quadrant pain. TECHNIQUE: Ultrasound abdomen limited. Sonographic images of the right upper quadrant were obtained using turk-scale and color Doppler images. COMPARISON: CT dated 01/11/2024. FINDINGS: Limited examination due to bowel gas. Liver: The liver is partially obscured. Mild heterogeneous echogenicity and coarsened liver echotexture. No definite liver lesion. Gallbladder: The gallbladder is obscured. There is shadowing from a stone measuring approximally 4.6 centimeters. No wall thickening. No definite pericholecystic fluid. Negative sonographic Mathew`s sign. Common bile duct: 3 mm. Pancreas: Obscured by bowel gas Right kidney: Normal in size. Normal echotexture and cortex. No suspicious masses, stones, or hydronephrosis. Vasculature: Proximal abdominal aorta: Normal in caliber. IVC: Patent. Main portal vein: Patent. Ascites: None visualized. IMPRESSION: 1. Limited examination. Partially obscured gallbladder with large stone. No definite evidence of acute cholecystitis. To consider CT for further evaluation. 2. Partially obscured heterogeneous liver. This could represent chronic underlying liver disease. Recommend correlation with liver function tests. Dictated by Aden Yuan MD @ 10/14/2024 1:49:54 PM (Electronically Signed)
[2024-10-14 12:56] LABS: Glucose, Point-of-Care* 245 mg/dl (60-115)
[2024-10-14 12:57] LABS: Hematocrit* 34.5 % (33.0-51.0); Hemoglobin* 11.2 gm/dL (12.0-16.0); Immature Granulocytes Abs Auto 0.01 K/uL (0.00-0.30); Immature Granulocytes Pct Auto 0.1 %; Lymphocytes Absolute Auto 1.80 K/uL (0.90-2.90); Mean Corpuscular HGB Conc 33 gm/dL (32-36); Mean Corpuscular Hemoglobin 31 pg (26-34); Mean Corpuscular Volume 96 fL (80-100); RDW Coefficient of Variation % 13.0 % (11.5-15.5); Red Blood Count* 3.59 m/uL (4.00-5.20); White Blood Count* 8.01 K/uL (4.50-11.00)
[2024-10-14 12:59] LABS: Lactate* 1.6 mmol/L (0.5-1.9)
[2024-10-14 13:01] LABS: Slide Review Reflex No
[2024-10-14 13:25] LABS: Albumin* 3.9 g/dL (3.3-5.0); Chloride* 102 mmol/L (96-114)
[2024-10-14 13:26] LABS: Potassium* 5.0 mmol/L (3.6-5.1); Sodium* 132 mmol/L (135-149)
[2024-10-14 13:28] LABS: Blood Urea Nitrogen* 23 mg/dL (7-30); Creatinine* 1.1 mg/dL (0.5-1.5); Est. Creatinine Clearance* 31.72; Estimated Glomerular Filt Rate 50 ml/min
[2024-10-14 13:29] LABS: Alanine Aminotransferase* 16 U/L (4-35); Alkaline Phosphatase* 61 U/L (40-150); Anion Gap 7 mEq/L (7-15); Aspartate Amino Transferase* 24 U/L (12-35); Bilirubin Direct* 0.3 mg/dL (0.0-0.5); Bilirubin Total* 0.5 mg/dL (0.1-1.5); Calcium* 9.7 mg/dL (8.4-10.6); Carbon Dioxide* 23 mmol/L (20-32); Glucose* 245 mg/dL (60-115); Total Protein* 6.8 g/dL (6.0-8.3)
--- NOTE | 2024-10-14 13:54 | CRLHL7_ITS ---
For Patients: As a result of the Century Cures Act, medical imaging exams and procedure reports are released immediately into your electronic medical record. You may view this report before your referring provider. If you have questions, please contact your health care provider. INDICATION: Nausea/anorexia TECHNIQUE: CT abdomen and pelvis acquired with 100 cc Omnipaque 350 IV contrast. COMPARISON: CT dated 01/11/2024. MRI dated 01/11/2024 FINDINGS: Scarring within the medial right lower lobe. Instrumentation within the posterior left ribs with tissue defect, unchanged. The liver is unremarkable. Gallbladder is distended. A large stone is noted within the gallbladder. There is mild stranding along the inferior aspect of gallbladder but favored to reactive due to the pathology within the gastric outlet. No definitive evidence of primary cholecystitis. Resolution of the previously seen intrahepatic biliary ductal dilatation. Additionally there is improved dilatation of the common bile duct which on coronal images measures 8 millimeters, previously approximately 12 millimeters on the prior. Prominent soft tissues noted at the ampulla not well evaluated. The spleen is unremarkable. There is significant atrophy of the pancreas. There is inflammation extending into the pancreaticoduodenal groove which is likely from the gastro duodenal pathology. No gross evidence primary pancreatitis is otherwise seen. No main ductal dilatation. Adrenal glands are unremarkable. The kidneys are unchanged in appearance. There is a contour abnormality of the periphery of the left kidney with hypoattenuation, unchanged, likely scarring (57). No hydronephrosis. The urinary bladder is partially distended. The stomach is partially distended. There is severe abnormal thickening and stranding at the level of the gastric outlet as evidence for inflammation and likely ulceration. A prominent adjacent duodenal diverticulum is seen which appears to be chronic. No definite evidence of perforation. No free air or organized drainable abscess is otherwise seen. The distal duodenum is normal in appearance with small diverticulum. The small bowel is unremarkable. Sigmoid diverticulosis is seen without CT evidence of acute diverticulitis. The appendix is nondilated. No organized drainable fluid collection. No free air. No lymphadenopathy. The uterus is unremarkable. The portal vein is patent. Aorta is normal in caliber. Bone windows demonstrate no acute fracture. IMPRESSION: 1. Significant thickening and stranding centered at the gastric outlet as evidence for inflammation and likely peptic ulcer disease. 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 No free air. Follow-up upper endoscopy is recommended for further evaluation. 2. Distended gallbladder with large laminated stone. Mild inflammation extends to the gallbladder with no definite evidence of primary cholecystitis. 3. Inflammation extends to the pancreatico duodenal groove, likely reactive groove pancreatitis. Recommend correlation with serum lipase. Please note that all CT scans at this facility use dose modulation, iterative reconstruction, and/or weight-based dosing when appropriate to reduce radiation dose to as low as reasonably achievable. Dictated by Aden Yuan MD @ 10/14/2024 2:39:03 PM (Electronically Signed)
[2024-10-14 14:08] LABS: Appearance Urine Clear (Clear)
[2024-10-14] MEDS: PANTOPRAZOLE SODIUM 40 MG INJ IVP (14:54)
[2024-10-14] MEDS: cefTRIAXone 1 GM in 0.9 % SODIUM CHLORIDE Mini-bag 100 ML IVPB (15:28)
--- NOTE | 2024-10-14 16:58 | PM.IMHP1 ---
Assessment and Plan Assessment and plan (1) Postprandial nausea: Problem comment: - Gastric outlet inflammation and likely peptic ulcer disease on CT abdomen/pelvis; inflammation extends into the pancreaticoduodenal groove, lipase is reassuring. No evidence of cholecystitis on CT or US. Could be secondary to symptomatic cholelithiasis. I spoke with Dr. Prasad from general surgery who recommends treating probable PUD and get EGD first. Dr. Prasad will see patient tomorrow in consultation. - Treat with IV PPI BID, clear liquid diet, EGD ordered - not available until Wednesday. Check for Hpylori. Hold metformin (she's been taking this for years, so less likely the cause of nausea). - EKG show QTC of 496ms, so I will avoid ondansetron. Lorazepam worked well for nausea in ER. Status: Acute (2) Right sided abdominal pain: Problem comment: - as above Status: Acute (3) Anorexia: Problem comment: - as above Status: Acute (4) Gastric inflammation: Problem comment: - as above, clears, PPI, obtain EGD - ordered for Wednesday Status: Acute (5) Dilation of biliary tract: Problem comment: 2023 - CT and ultrasound suggest cholecystitis. Patient has constitutional symptoms of illness including abdominal pain in loss of appetite. Treated as cholecystitis. MRCP shows dilated common duct with no definite stone. Narrowing of the distal common duct at the ampulla. Reviewed with surgery and patient and family and decision is made to medically manage this for now. If recurrent symptoms may need ERCP. Consider ERCP if developing symptoms, abdominal pain, anorexia, nausea, fever, jaundice. Status: Acute (6) Cholelithiasis: Problem comment: Diagnosed in 2023 Status: Chronic (7) Abnormal urinalysis: Problem comment: - While patient is not having specific urinary symptoms, she does have nausea and abdominal pain. Will treat as possible UTI and await UC to rule this out as cause for her symptoms. Status: Acute (8) Diabetes mellitus, type 2: Problem comment: - Hold metformin as patient will be on clears tonight and will be NPO tomorrow night in preparation for EGD. - Start accuchecks and ISS. Status: Chronic (9) Congestive heart failure: Problem comment: - NYHA class 3. History of heart failure with reduced ejection fraction. Echocardiogram 01/11/24 showed ejection fraction 36% with moderate to severe tricuspid regurgitation. - Stable, not currently in exacerbation Status: Chronic (10) Normocytic anemia: Problem comment: - was also present last year; she was on anticoagulation at the time - Check iron studies, B12, folate, hemoccult stool. Status: Acute Total Time Spent Total Time Spent: Time spent: Today I spent 75 minutes seeing the patient with her family in the room and on the phone, discussing the patient with ER staff, reviewing Expanse and EPIC notes/diagnostics, discussing the care plan with our care team that includes social work, PT/OT, pharmacy, RT, retirement and documenting my impressions and plan in the medical record. Hospitalist- H&P: HPI History of Present Illness Time Seen by Provider: 17:20 Date Seen: 10/14/24 Chief complaint: Nauseated - Cannot Eat Narrative: Jeanine Montague is a 83 year old female with a known history of cholelithiasis and an episode of acute calculous cholecystitis last year that was medically managed and a history of irritable bowel syndrome who presented through the emergency department with 4 days of postprandial nausea and right abdominal pain along with anorexia. She tells me that this started suddenly Wednesday evening after a very large bowel movement. There was nothing else abnormal about the bowel movement. She has had multiple small bowel movement since then. She denies diarrhea, constipation, fever, chills, melena, or hematochezia. She has only vomited once a few days ago. This happened a few hours after she ate and it was all on digested food. There was no blood or coffee-ground emesis. She notes that the abdominal pain and nausea get better, but then come back a few hours after she eats. Because of this she has not wanted to eat very much. She denies weight loss. She does not use any nutritional supplementation, but does have a yogurt protein drink every morning. Last year she was admitted in late December for acute calculous cholecystitis with sepsis. She did not have any pain with that episode. Her symptoms were poor appetite with weakness and falls. Due to being on anticoagulation at the time for a ventricular thrombus, she was not a surgical candidate and so this was treated medically and she was sent home on Augmentin. Symptoms cleared up and she did not have any recurrent symptoms until a few days ago. She does not have any weakness or falls recently. Last February she had an ECHO that showed no ventricular thrombus and her anticoagulation was discontinued. Her son is with her and her daughter was on speakerphone. They asked questions and helped clarify a few details, but the patient was able to provide the majority of her history. Review of Systems Status of ROS: Reports: 10 or more systems reviewed and unremarkable except as noted in History and below Medical Decision Making Medical Decision Making Code Status: DNR/DNI Has patient completed a Health Care Directive: Yes During This Stay, Who Would You Like To Make Decisions For You In The Event You Are Unable To Make Them For Yourself?: Son, Steven, and daughter, Yennifer. Relevant situational information: Son was present in room and daughter on speakerphone for this conversation. [facility] Medical History (Updated 10/14/24 @ 21:04 by Cassidy Owusu MD) Personal history of malignant neoplasm of breast ?Z85.3 - Personal history of malignant neoplasm of breast (ICD-10) Peripheral circulatory disorder due to type 2 diabetes mellitus ?E11.51 - Type 2 diabetes mellitus with diabetic peripheral angiopathy without gangrene (ICD-10) Obesity with body mass index 30 or greater ?E66.9 - Obesity, unspecified (ICD-10) Lumbosacral radiculopathy ?M54.17 - Radiculopathy, lumbosacral region (ICD-10) Hyperlipidemia ?E78.5 - Hyperlipidemia, unspecified (ICD-10) Congestive heart failure ?I50.9 - Heart failure, unspecified (ICD-10) Asthma ?J45.909 - Unspecified asthma, uncomplicated (ICD-10) Arteriosclerosis of coronary artery ?I25.10 - Atherosclerotic heart disease of [place] coronary artery without angina pectoris (ICD-10) Dilation of biliary tract ?K83.8 - Other specified diseases of biliary tract (ICD-10) Depression ?F32.A - Depression, unspecified (ICD-10) Hematuria ?R31.9 - Hematuria, unspecified (ICD-10) Frailty syndrome in geriatric patient ?R54 - Age-related physical debility (ICD-10) Left ventricular thrombus ?I51.3 - Intracardiac thrombosis, not elsewhere classified (ICD-10) Chronic diarrhea ?K52.9 - Noninfective gastroenteritis and colitis, unspecified (ICD-10) Prolonged QT interval ?R94.31 - Abnormal electrocardiogram [ECG] [EKG] (ICD-10) Hypertension ?I10 - Essential (primary) hypertension (ICD-10) CKD (chronic kidney disease) ?N18.9 - Chronic kidney disease, unspecified (ICD-10) History of falling ?Z91.81 - History of falling (ICD-10) VIOLET (obstructive sleep apnea) ?G47.33 - Obstructive sleep apnea (adult) (pediatric) (ICD-10) Diabetes mellitus, type 2 ?E11.9 - Type 2 diabetes mellitus without complications (ICD-10) Cardiomyopathy ?I42.9 - Cardiomyopathy, unspecified (ICD-10) Surgical History History of coronary artery stent placement ?Z95.5 - Presence of coronary angioplasty implant and graft (ICD-10) History of modified radical mastectomy ?Z90.10 - Acquired absence of unspecified breast and nipple (ICD-10) Family History Mother Depression Breast cancer Social History (Updated 10/14/24 @ 18:29 by Cassidy Owusu MD) Narrative: Lives with her daughter in an apartment in [place]. Son is also in [place]. She does not smoke. She occasionally drinks alcohol, less than once a week. She walks with a walker. Daughter sets up her medications. What is your current living situation?: I presently have a place to live Problems where you live: no known problems Problems where you live details: n/a In the past 12 months, utilities in danger of being shut off: no In past 12 months, lack of transportation kept you from medical appts, meetings, work, or getting things needed for daily living: no In the past 12 mos, have been you worried that your food would run out before you had money to buy more?: never true In the past 12 mos, the food you bought just didn't last and you didn't have money to buy more?: never true Highest level of school completed/degree received: some college, no degree Smoking Status: Never smoker Do you use any of these nicotine containing products: None Second hand tobacco smoke exposure: No How often do you have a drink containing alcohol: monthly or less How many standard drinks containing alcohol do you have on a typical day: 1 or 2 How often do you have six or more drinks on one occasion: Never AUDIT-C Alcohol total score: 1 Non-prescribed substance use: denies use Caffeine: No How often does anyone, including family, friends and others, physically hurt you: never How often does anyone, including family, friends and others, insult or talk down to you: never How often does anyone, including family, friends and others, threaten you with harm: never How often does anyone, including family, friends and others, scream or curse at you: never service: No Meds Home Medications and Allergies Home Medications ?Medication ?Instructions ?Recorded ?Confirmed ?Type aspirin 81 mg capsule 81 mg PO DAILY 01/11/24 10/14/24 History budesonide 3 mg 3 mg PO DAILY 01/11/24 10/14/24 History capsule,delayed,extended release bupropion HCl 150 mg 24 hr tablet, 300 mg PO DAILY 01/11/24 10/14/24 History extended release metoprolol succinate 25 mg 25 mg PO HS 01/11/24 10/14/24 History tablet,extended release 24 hr rosuvastatin 20 mg tablet 20 mg PO DAILY 01/11/24 10/14/24 History valsartan 40 mg tablet 40 mg PO HS 01/11/24 10/14/24 History metformin 500 mg tablet,extended 1,000 mg (2 x 500 mg) PO DAILY #60 01/13/24 10/14/24 Rx release 24 hr tabs furosemide 20 mg tablet 20 mg PO Q48H 10/14/24 10/14/24 History magnesium oxide 400 mg (241.3 mg 400 mg PO HS 10/14/24 10/14/24 History magnesium) tablet mirtazapine 7.5 mg tablet 7.5 mg PO HS 10/14/24 10/14/24 History spironolactone 25 mg tablet 12.5 mg PO DAILY 10/14/24 10/14/24 History Allergies Allergy/AdvReac Type Severity Reaction Status Date / Time No Known Drug Allergies Allergy Verified 06/10/24 14:08 Exam Narrative: Exam Narrative: General: No acute distress. Awake alert oriented x3. HEENT: Normocephalic atraumatic, pupils equally round and reactive to light and accommodation. Oropharynx clear. Mucous membranes are moist. No cervical lymphadenopathy, thyromegaly or carotid bruits. No JVD. Cardiovascular: Regular rate and rhythm. No murmurs, gallops, or rubs. Chest: No increased work of breathing. Clear to auscultation bilaterally. No crackles or wheezes. Abdomen: Bowel sounds hypoactive. Soft, nondistended, tender in the right upper quadrant, positive Mathew sign, no rebound tenderness or guarding. No hepatosplenomegaly or masses. Extremities: No edema, no cyanosis or clubbing. Skin: No jaundice, no pallor, no rashes on visible skin. Const: Vital Signs, click to edit/add: Vital Signs - 24 hr 10/14/24 11:56 10/14/24 12:30 10/14/24 13:00 Temperature 97.1 F L Pulse Rate 85 88 Pulse Rate [Pulse Oximeter] 118 H Respiratory Rate 16 19 21 Blood Pressure 141/65 H Blood Pressure [Ri ght Upper Arm] 133/87 Pulse Oximetry 98 96 [facility] 10/14/24 13:34 10/14/24 14:32 10/14/24 14:59 Temperature 97.8 F Pulse Rate 71 94 Pulse Rate [Pulse Oximeter] 87 Respiratory Rate 14 22 16 Blood Pressure 138/91 H 158/69 H Blood Pressure [Ri ght Upper Arm] 155/78 H Pulse Oximetry 96 96 97 [facility] 10/14/24 14:59 10/14/24 15:01 10/14/24 15:32 Temperature Pulse Rate 86 85 89 Pulse Rate [Pulse Oximeter] Respiratory Rate 16 19 18 Blood Pressure 155/78 H 148/77 H 152/72 H Blood Pressure [Ri ght Upper Arm] Pulse Oximetry 97 96 98 [facility] - H&P: Result Labs Labs: Short CBC 10/14/24 Range/Units 12:45 WBC 8.01 (4.50-11.00) K/uL Hgb 11.2 L (12.0-16.0) gm/dL Hct 34.5 (33.0-51.0) % Plt Count 276 (140-440) K/uL BMP 10/14/24 12:45 Sodium 132 L Potassium 5.0 Chloride 102 Carbon Dioxide 23 BUN 23 Creatinine 1.1 Glucose 245 H Calcium 9.7 Liver Function 10/14/24 Range/Units 12:45 Total Bilirubin 0.5 (0.1-1.5) mg/dL Direct Bilirubin 0.3 (0.0-0.5) mg/dL AST 24 (12-35) U/L ALT 16 (4-35) U/L Alkaline Phosphatase 61 (40-150) U/L Albumin 3.9 (3.3-5.0) g/dL Urine 10/14/24 Range/Units 13:56 Urine Color Yellow (Yellow) Urine Appearance Clear (Clear) Urine pH 5.5 (5.0-8.5) Ur Specific [place] 1.010 (1.000-1.030) Urine Protein Negative (Negative) Urine Glucose (UA) 2+ A (Negative) 10/14/2024 EKG: Sinus rhythm with occasional premature ventricular complexes, 84 beats per minute, left axis deviation, right bundle-branch block, inferior infarct, age undetermined. Ordering Physician: Hillary Ronquillo M.D. Date of Service: 10/14/24 Procedure(s): US abdomen limited Accession Number(s): [id number] cc: Provider,Not a Local; Hillary Ronquillo M.D.~ For Patients: As a result of the Cures Act, medical imaging exams and procedure reports are released immediately into your electronic medical record. You may view this report before your referring provider. If you have questions, please contact your health care provider. INDICATION: Right upper quadrant pain. TECHNIQUE: Ultrasound abdomen limited. Sonographic images of the right upper quadrant were obtained using turk-scale and color Doppler images. COMPARISON: CT dated 01/11/2024. FINDINGS: Limited examination due to bowel gas. Liver: The liver is partially obscured. Mild heterogeneous echogenicity and coarsened liver echotexture. No definite liver lesion. Gallbladder: The gallbladder is obscured. There is shadowing from a stone measuring approximally 4.6 centimeters. No wall thickening. No definite pericholecystic fluid. Negative sonographic Mathew`s sign. Common bile duct: 3 mm. Pancreas: Obscured by bowel gas Right kidney: Normal in size. Normal echotexture and cortex. No suspicious masses, stones, or hydronephrosis. Vasculature: Proximal abdominal aorta: Normal in caliber. IVC: Patent. Main portal vein: Patent. Ascites: None visualized. IMPRESSION: 1. Limited examination. Partially obscured gallbladder with large stone. No definite evidence of acute cholecystitis. To consider CT for further evaluation. 2. Partially obscured heterogeneous liver. This could represent chronic underlying liver disease. Recommend correlation with liver function tests. Dictated by Aden Yuan MD @ 10/14/2024 1:49:54 PM (Electronically Signed) Ordering Physician: Hillary Ronquillo M.D. Date of Service: 10/14/24 Procedure(s): CT abdomen pelvis w con Accession Number(s): [id number] cc: Provider,Not a Local; Hillary Ronquillo M.D.~ For Patients: As a result of the Cures Act, medical imaging exams and procedure reports are released immediately into your electronic medical record. You may view this report before your referring provider. If you have questions, please contact your health care provider. INDICATION: Nausea/anorexia TECHNIQUE: CT abdomen and pelvis acquired with 100 cc Omnipaque 350 IV contrast. COMPARISON: CT dated 01/11/2024. MRI dated 01/11/2024 FINDINGS: Scarring within the medial right lower lobe. Instrumentation within the posterior left ribs with tissue defect, unchanged. The liver is unremarkable. Gallbladder is distended. A large stone is noted within the gallbladder. There is mild stranding along the inferior aspect of gallbladder but favored to reactive due to the pathology within the gastric outlet. No definitive evidence of primary cholecystitis. Resolution of the previously seen intrahepatic biliary ductal dilatation. Additionally there is improved dilatation of the common bile duct which on coronal images measures 8 millimeters, previously approximately 12 millimeters on the prior. Prominent soft tissues noted at the ampulla not well evaluated. The spleen is unremarkable. There is significant atrophy of the pancreas. There is inflammation extending into the pancreaticoduodenal groove which is likely from the gastro duodenal pathology. No gross evidence primary pancreatitis is otherwise seen. No main ductal dilatation. Adrenal glands are unremarkable. The kidneys are unchanged in appearance. There is a contour abnormality of the periphery of the left kidney with hypoattenuation, unchanged, likely scarring (57). No hydronephrosis. The urinary bladder is partially distended. The stomach is partially distended. There is severe abnormal thickening and stranding at the level of the gastric outlet as evidence for inflammation and likely ulceration. A prominent adjacent duodenal diverticulum is seen which appears to be chronic. No definite evidence of perforation. No free air or organized drainable abscess is otherwise seen. The distal duodenum is normal in appearance with small diverticulum. The small bowel is unremarkable. Sigmoid diverticulosis is seen without CT evidence of acute diverticulitis. The appendix is nondilated. No organized drainable fluid collection. No free air. No lymphadenopathy. The uterus is unremarkable. The portal vein is patent. Aorta is normal in caliber. Bone windows demonstrate no acute fracture. IMPRESSION: 1. Significant thickening and stranding centered at the gastric outlet as evidence for inflammation and likely peptic ulcer disease. 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 No free air. Follow-up upper endoscopy is recommended for further evaluation. 2. Distended gallbladder with large laminated stone. Mild inflammation extends to the gallbladder with no definite evidence of primary cholecystitis. 3. Inflammation extends to the pancreatico duodenal groove, likely reactive groove pancreatitis. Recommend correlation with serum lipase. Please note that all CT scans at this facility use dose modulation, iterative reconstruction, and/or weight-based dosing when appropriate to reduce radiation dose to as low as reasonably achievable. Dictated by Aden Yuan MD @ 10/14/2024 2:39:03 PM (Electronically Signed)
[2024-10-14] MEDS: SODIUM CHLORIDE 0.9 % (FLUSH) 10 ML SYRINGE 5 ML IVF (20:30)
[2024-10-14] MEDS: MAGNESIUM OXIDE 400 MG TABLET PO (20:32)
[2024-10-14] MEDS: METOPROLOL SUCCINATE (XL) 25 MG TAB PO (20:32)
[2024-10-14] MEDS: MIRTAZAPINE 15 MG TABLET 7.5 MG PO (20:33)
[2024-10-14] MEDS: VALSARTAN 80 MG TABLET 40 MG PO (20:37)
[2024-10-14] MEDS: INSULIN ASPART 100 UNIT/ML SUBCUT (20:42)
[2024-10-14] MEDS: DOCUSATE SODIUM 100 MG CAPSULE PO (20:45)
[2024-10-15] VITALS (7 sets, daily range): BP systolic 119–128; BP diastolic 50–67; PULSE 62–88; RESP 14–18; TEMP 36.6–36.8; O2SAT 94–97
[2024-10-15] MEDS: DOCUSATE SODIUM 100 MG CAPSULE PO (06:11)
[2024-10-15 06:26] LABS: Hematocrit* 31.2 % (33.0-51.0); Hemoglobin* 10.3 gm/dL (12.0-16.0); Immature Granulocytes Abs Auto 0.01 K/uL (0.00-0.30); Immature Granulocytes Pct Auto 0.2 %; Lymphocytes Absolute Auto 2.15 K/uL (0.90-2.90); Mean Corpuscular HGB Conc 33 gm/dL (32-36); Mean Corpuscular Hemoglobin 32 pg (26-34); Mean Corpuscular Volume 96 fL (80-100); RDW Coefficient of Variation % 13.2 % (11.5-15.5); Red Blood Count* 3.25 m/uL (4.00-5.20); White Blood Count* 5.72 K/uL (4.50-11.00)
--- NOTE | 2024-10-15 06:35 | PC.NURSE ---
Arrived to find the patient visiting with her extended family and in good spirits. No nausea or pain reported. Light and deep palpitation of the abdomen did not produce pain. She did note constipation. Hypoactive bowel noises. Docusate sodium given. Diagnosis of type two diabetes in chart but the patient reports not checking her blood sugar at home as she has never been told by a physician to do so.?Otherwise unremarkable assessment. Tolerating clear diet. Frequent urination overnight with some incontinence. No further developments overnight.?
[2024-10-15 06:42] LABS: Albumin* 3.4 g/dL (3.3-5.0); Chloride* 106 mmol/L (96-114); Sodium* 136 mmol/L (135-149)
[2024-10-15 06:43] LABS: Potassium* 5.0 mmol/L (3.6-5.1)
[2024-10-15 06:45] LABS: Alanine Aminotransferase* 12 U/L (4-35); Alkaline Phosphatase* 60 U/L (40-150); Anion Gap 5 mEq/L (7-15); Aspartate Amino Transferase* 19 U/L (12-35); Bilirubin Total* 0.3 mg/dL (0.1-1.5); Blood Urea Nitrogen* 15 mg/dL (7-30); Carbon Dioxide* 25 mmol/L (20-32); Creatinine* 1.0 mg/dL (0.5-1.5); Est. Creatinine Clearance* 34.90; Estimated Glomerular Filt Rate 57 ml/min; Total Protein* 6.2 g/dL (6.0-8.3)
[2024-10-15 06:46] LABS: Calcium* 9.2 mg/dL (8.4-10.6); Glucose* 150 mg/dL (60-115)
[2024-10-15 07:12] LABS: Slide Review Reflex No
[2024-10-15 07:24] LABS: Iron* 47 ug/dL (37-170)
[2024-10-15 07:34] LABS: Percent Iron Saturation 20 % (20-50); Total Iron Binding Capacity 242 ug/dL (265-497)
[2024-10-15 07:46] LABS: Vitamin B12* > 1000 pg/mL (243-894)
[2024-10-15] MEDS: FUROSEMIDE 20 MG TABLET PO (08:40)
[2024-10-15] MEDS: SPIRONOLACTONE 25 MG TABLET 12.5 MG PO (08:40)
[2024-10-15] MEDS: ROSUVASTATIN CALCIUM 10 MG TABLET 20 MG PO (08:40)
[2024-10-15] MEDS: PANTOPRAZOLE SODIUM 40 MG INJ IVP ×2 (08:40→20:43)
[2024-10-15] MEDS: SODIUM CHLORIDE 0.9 % (FLUSH) 10 ML SYRINGE 5 ML IVF ×2 (08:42→20:43)
--- NOTE | 2024-10-15 08:48 | PM.IMPN1 ---
Assessment and Plan Assessment and plan (1) Postprandial nausea: Problem comment: - Gastric outlet inflammation and likely peptic ulcer disease on CT abdomen/pelvis; inflammation extends into the pancreaticoduodenal groove, lipase is reassuring. No evidence of cholecystitis on CT or US. Could be secondary to symptomatic cholelithiasis. I spoke with Dr. Prasad from general surgery who recommends treating probable PUD and get EGD first. Dr. Prasad will see patient tomorrow in consultation. - Treat with IV PPI BID, clear liquid diet, EGD ordered - not available until Wednesday. Check for Hpylori. Hold metformin (she's been taking this for years, so less likely the cause of nausea). - EKG show QTC of 496ms, so I will avoid ondansetron. Lorazepam worked well for nausea in ER. 10/15: Hemoglobin stable. No bowel movements yet, but patient denies history of black stools or blood in the stool. -on clear liquids. NPO after midnight for EGD tomorrow. -continue pantoprazole IV b.i.d. -no bowel movements yet for H pylori antigen test. Status: Acute (2) Right sided abdominal pain: Problem comment: - as above 10/15 : No nausea and no abdominal pain. Status: Acute (3) Gastric inflammation: Problem comment: - as above, clears, PPI, obtain EGD - ordered for Wednesday Status: Acute (4) Dilation of biliary tract: Problem comment: 2023 - CT and ultrasound suggest cholecystitis. Patient has constitutional symptoms of illness including abdominal pain in loss of appetite. Treated as cholecystitis. MRCP shows dilated common duct with no definite stone. Narrowing of the distal common duct at the ampulla. Reviewed with surgery and patient and family and decision is made to medically manage this for now. If recurrent symptoms may need ERCP. Consider ERCP if developing symptoms, abdominal pain, anorexia, nausea, fever, jaundice. Status: Acute (5) Cholelithiasis: Problem comment: Diagnosed in 2023 Status: Chronic (6) Abnormal urinalysis: Problem comment: - While patient is not having specific urinary symptoms, she does have nausea and abdominal pain. Will treat as possible UTI and await UC to rule this out as cause for her symptoms. -10/15: Patient was started on ceftriaxone yesterday. Will continue antibiotics until we get a urine culture. Status: Acute (7) Diabetes mellitus, type 2: Problem comment: - Hold metformin as patient will be on clears tonight and will be NPO tomorrow night in preparation for EGD. - Start accuchecks and ISS. - uncontrolled diabetes hemoglobin A1c elevated at 9. Status: Chronic (8) Congestive heart failure: Problem comment: - NYHA class 3. History of heart failure with reduced ejection fraction. Echocardiogram 01/11/24 showed ejection fraction 36% with moderate to severe tricuspid regurgitation. - Stable, not currently in exacerbation Status: Chronic (9) Normocytic anemia: Problem comment: - was also present last year; she was on anticoagulation at the time - Check iron studies, B12, folate, hemoccult stool. Status: Acute Total Time Spent Total Time Spent: Today I spent 50 minutes seeing the patient, reviewing Expanse and EPIC notes/diagnostics, discussing the care plan with our care time that includes social work, PT/OT, pharmacy, RT, halfway and documenting my impressions and plan in the medical record. Subjective Date Seen: 10/15/24 Interval history: Patient was seen and examined at bedside. She denies nausea and denies abdominal pain right now. No bowel movements yet but she states that she never had black stools or blood in the stool. Exam Narrative: Exam Narrative: Physical exam GENERAL: Comfortable, no acute distress. HEAD AND NECK: Atraumatic, normocephalic CARDIOVASCULAR: RRR. Normal S1, S2. No murmurs. RESPIRATORY: Clear to auscultation B/L. Good air entry B/L. No wheezes or rhonchi. GASTROINTESTINAL: Obese, not tender to palpation. NEUROLOGY: Alert, awake, oriented. Normal speech. PSYCH: Normal mood, normal affect. Const: Vital Signs, click to edit/add: Vital Signs - 24 hr 10/14/24 11:56 10/14/24 12:30 10/14/24 13:00 Temperature 97.1 F L Pulse Rate 85 88 Pulse Rate [Pulse Oximeter] 118 H Pulse Rate [Right Pulse Oximeter] Respiratory Rate 16 19 21 Blood Pressure 141/65 H Blood Pressure [Le ft Arm] Blood Pressure [Ri ght Arm] Blood Pressure [Ri ght Upper Arm] 133/87 Pulse Oximetry 98 96 97 Oxygen Delivery Me thod Room Air 10/14/24 13:34 10/14/24 14:32 10/14/24 14:59 Temperature 97.8 F Pulse Rate 71 94 Pulse Rate [Pulse Oximeter] 87 Pulse Rate [Right Pulse Oximeter] Respiratory Rate 14 22 16 Blood Pressure 138/91 H 158/69 H Blood Pressure [Le ft Arm] Blood Pressure [Ri ght Arm] Blood Pressure [Ri ght Upper Arm] 155/78 H Pulse Oximetry 96 96 97 Oxygen Delivery Mt thod Room Air 10/14/24 14:59 10/14/24 15:01 10/14/24 15:32 Temperature Pulse Rate 86 85 89 Pulse Rate [Pulse Oximeter] Pulse Rate [Right Pulse Oximeter] Respiratory Rate 16 19 18 Blood Pressure 155/78 H 148/77 H 152/72 H Blood Pressure [Le ft Arm] Blood Pressure [Ri ght Arm] Blood Pressure [Ri ght Upper Arm] Pulse Oximetry 97 96 98 [facility] 10/14/[facility] 16:52 10/14/24 16:52 10/14/24 19:25 Temperature 98.0 F 98 F Pulse Rate Pulse Rate [Pulse Oximeter] Pulse Rate [Right Pulse Oximeter] 85 100 Respiratory Rate 16 16 Blood Pressure Blood Pressure [Le ft Arm] 132/82 133/68 Blood Pressure [Ri ght Arm] Blood Pressure [Ri ght Upper Arm] Pulse Oximetry 96 96 [facility] Room [facility] Room Air 10/14/24 22:59 10/14/24 23:00 10/15/24 03:00 Temperature 98.1 F 98.1 F Pulse Rate Pulse Rate [Pulse Oximeter] Pulse Rate [Right Pulse Oximeter] 72 79 Respiratory Rate 16 16 16 Blood Pressure Blood Pressure [Le ft Arm] Blood Pressure [Ri ght Arm] 124/69 122/63 Blood Pressure [Ri ght Upper Arm] Pulse Oximetry 95 95 94 Oxygen Delivery Mt thod Room Air Room Air Room Air Labs Labs: Laboratory Results - last 24 hr 10/14/24 10/14/24 10/14/24 12:18 12:45 13:56 WBC 8.01 RBC 3.59 L Hgb 11.2 L Hct 34.5 MCV 96 MCH 31 MCHC 33 RDW Coeff of [place] 13.0 Plt Count 276 Neut % (Auto) 66.1 Lymph % (Auto) 22.5 [place] % (Auto) 10.4 Eos % (Auto) 0.5 Baso % (Auto) 0.4 Neut # (Auto) 5.30 Lymph # (Auto) 1.80 [place] # (Auto) 0.80 Eos # (Auto) 0.04 Baso # (Auto) 0.03 Abs Immat Gran (auto) 0.01 Imm/Tot Granulo (auto) 0.1 Sodium 132 L Potassium 5.0 Chloride 102 Carbon Dioxide 23 Anion Gap 7 BUN 23 Creatinine 1.1 Estimated Creat Clear 31.72 Estimated GFR 50 Glucose 245 H Hemoglobin A1c Lactate 1.6 Calcium 9.7 Iron TIBC % Saturation Total Bilirubin 0.5 Direct Bilirubin 0.3 AST 24 ALT 16 Alkaline Phosphatase 61 C-Reactive Protein 5.8 H Total Protein 6.8 Albumin 3.9 Lipase 114 Vitamin B12 Urine Color Yellow Urine Appearance Clear Urine pH 5.5 Ur Specific [place] 1.010 Urine Protein Negative Urine Glucose (UA) 2+ A Urine Ketones Negative Urine Blood Negative Urine Nitrite Positive A Urine Bilirubin Negative Urine Urobilinogen 0.2 Ur Leukocyte Esterase Negative Urine RBC 0-2 Urine WBC 2-5 Ur Squamous Epith Cells Few Urine Bacteria Many A POC Glucose 245 H 10/15/24 06:00 WBC 5.72 RBC 3.25 L Hgb 10.3 L Hct 31.2 L MCV 96 MCH 32 MCHC 33 RDW Coeff of [place] 13.2 Plt Count 292 Neut % (Auto) 50.5 Lymph % (Auto) 37.6 [place] % (Auto) 9.4 Eos % (Auto) 1.6 Baso % (Auto) 0.7 Neut # (Auto) 2.89 Lymph # (Auto) 2.15 [place] # (Auto) 0.50 Eos # (Auto) 0.09 Baso # (Auto) 0.04 Abs Immat Gran (auto) 0.01 Imm/Tot Granulo (auto) 0.2 Sodium 136 Potassium 5.0 Chloride 106 Carbon Dioxide 25 Anion Gap 5 L BUN 15 Creatinine 1.0 Estimated Creat Clear 34.90 Estimated GFR 57 Glucose 150 H Hemoglobin A1c 9.0 H Lactate Calcium 9.2 Iron 47 TIBC 242 L % Saturation 20 Total Bilirubin 0.3 Direct Bilirubin AST 19 ALT 12 Alkaline Phosphatase 60 C-Reactive Protein Total Protein 6.2 Albumin 3.4 Lipase Vitamin B12 > 1000 H Urine Color Urine Appearance Urine pH Ur Specific [place] Urine Protein Urine Glucose (UA) Urine Ketones Urine Blood Urine Nitrite Urine Bilirubin Urine Urobilinogen Ur Leukocyte Esterase Urine RBC Urine WBC Ur Squamous Epith Cells Urine Bacteria POC Glucose
--- NOTE | 2024-10-15 11:11 | PM.GSCN ---
History of Present Illness Consult details Date Seen: 10/15/24 Consult date: 10/15/24 Narrative: Patient presented to the emergency department with nausea and right-sided abdominal pain. She says about a week ago she ate something and had sharp pain on the right. Since then her pain has been very inconsistent, but her nausea persisted. She denies having pain like this before. She does have a known large gallstone, with an episode of cholecystitis manage last year medically. She denies any fevers. She is feeling hungry today and wonders if she can eat. Since being admitted yesterday her pain has completely resolved. Review of Systems Status of ROS: Reports: 10 or more systems reviewed and unremarkable except as noted in History and below [facility] Medical History (Updated 10/15/24 @ 08:55 by Carito Man MD) Personal history of malignant neoplasm of breast ?Z85.3 - Personal history of malignant neoplasm of breast (ICD-10) Peripheral circulatory disorder due to type 2 diabetes mellitus ?E11.51 - Type 2 diabetes mellitus with diabetic peripheral angiopathy without gangrene (ICD-10) Obesity with body mass index 30 or greater ?E66.9 - Obesity, unspecified (ICD-10) Lumbosacral radiculopathy ?M54.17 - Radiculopathy, lumbosacral region (ICD-10) Hyperlipidemia ?E78.5 - Hyperlipidemia, unspecified (ICD-10) Congestive heart failure ?I50.9 - Heart failure, unspecified (ICD-10) Asthma ?J45.909 - Unspecified asthma, uncomplicated (ICD-10) Arteriosclerosis of coronary artery ?I25.10 - Atherosclerotic heart disease of [place] coronary artery without angina pectoris (ICD-10) Dilation of biliary tract ?K83.8 - Other specified diseases of biliary tract (ICD-10) Depression ?F32.A - Depression, unspecified (ICD-10) Hematuria ?R31.9 - Hematuria, unspecified (ICD-10) Frailty syndrome in geriatric patient ?R54 - Age-related physical debility (ICD-10) Left ventricular thrombus ?I51.3 - Intracardiac thrombosis, not elsewhere classified (ICD-10) Chronic diarrhea ?K52.9 - Noninfective gastroenteritis and colitis, unspecified (ICD-10) Prolonged QT interval ?R94.31 - Abnormal electrocardiogram [ECG] [EKG] (ICD-10) Hypertension ?I10 - Essential (primary) hypertension (ICD-10) CKD (chronic kidney disease) ?N18.9 - Chronic kidney disease, unspecified (ICD-10) History of falling ?Z91.81 - History of falling (ICD-10) VIOLET (obstructive sleep apnea) ?G47.33 - Obstructive sleep apnea (adult) (pediatric) (ICD-10) Diabetes mellitus, type 2 ?E11.9 - Type 2 diabetes mellitus without complications (ICD-10) Cardiomyopathy ?I42.9 - Cardiomyopathy, unspecified (ICD-10) Surgical History History of coronary artery stent placement ?Z95.5 - Presence of coronary angioplasty implant and graft (ICD-10) History of modified radical mastectomy ?Z90.10 - Acquired absence of unspecified breast and nipple (ICD-10) Family History Mother Depression Breast cancer Social History (Updated 10/14/24 @ 18:29 by Cassidy Owusu MD) Narrative: Lives with her daughter in an apartment in [place]. Son is also in [place]. She does not smoke. She occasionally drinks alcohol, less than once a week. She walks with a walker. Daughter sets up her medications. What is your current living situation?: I presently have a place to live Problems where you live: no known problems Problems where you live details: n/a In the past 12 months, utilities in danger of being shut off: no In past 12 months, lack of transportation kept you from medical appts, meetings, work, or getting things needed for daily living: no In the past 12 mos, have been you worried that your food would run out before you had money to buy more?: never true In the past 12 mos, the food you bought just didn't last and you didn't have money to buy more?: never true Highest level of school completed/degree received: some college, no degree Smoking Status: Never smoker Do you use any of these nicotine containing products: None Second hand tobacco smoke exposure: No How often do you have a drink containing alcohol: monthly or less How many standard drinks containing alcohol do you have on a typical day: 1 or 2 How often do you have six or more drinks on one occasion: Never AUDIT-C Alcohol total score: 1 Non-prescribed substance use: denies use Caffeine: No How often does anyone, including family, friends and others, physically hurt you: never How often does anyone, including family, friends and others, insult or talk down to you: never How often does anyone, including family, friends and others, threaten you with harm: never How often does anyone, including family, friends and others, scream or curse at you: never service: No Meds Home Medications and Allergies Home Medications ?Medication ?Instructions ?Recorded ?Confirmed ?Type aspirin 81 mg capsule 81 mg PO DAILY 01/11/24 10/14/24 History budesonide 3 mg 3 mg PO DAILY 01/11/24 10/14/24 History capsule,delayed,extended release bupropion HCl 150 mg 24 hr tablet, 300 mg PO DAILY 01/11/24 10/14/24 History extended release metoprolol succinate 25 mg 25 mg PO HS 01/11/24 10/14/24 History tablet,extended release 24 hr rosuvastatin 20 mg tablet 20 mg PO DAILY 01/11/24 10/14/24 History valsartan 40 mg tablet 40 mg PO HS 01/11/24 10/14/24 History metformin 500 mg tablet,extended 1,000 mg (2 x 500 mg) PO DAILY #60 01/13/24 10/14/24 Rx release 24 hr tabs furosemide 20 mg tablet 20 mg PO Q48H 10/14/24 10/14/24 History magnesium oxide 400 mg (241.3 mg 400 mg PO HS 10/14/24 10/14/24 History magnesium) tablet mirtazapine 7.5 mg tablet 7.5 mg PO HS 10/14/24 10/14/24 History spironolactone 25 mg tablet 12.5 mg PO DAILY 10/14/24 10/14/24 History Allergies Allergy/AdvReac Type Severity Reaction Status Date / Time No Known Drug Allergies Allergy Verified 06/10/24 14:08 Exam Narrative: Exam Narrative: General: Alert and oriented, no acute distress. Sitting comfortably in the chair Respiratory: Equal breath rise bilaterally, maintained on room CV: Well perfused Abdomen: Soft, nondistended, nontender to palpation. Negative Mathew's. Const: Vital Signs, click to edit/add: Vital Signs - 24 hr 10/14/24 11:56 10/14/24 12:30 10/14/24 13:00 Temperature 97.1 F L Pulse Rate 85 88 Pulse Rate [Pulse Oximeter] 118 H Pulse Rate [Right Pulse Oximeter] Respiratory Rate 16 19 21 Blood Pressure 141/65 H Blood Pressure [Le ft Arm] Blood Pressure [Ri ght Arm] Blood Pressure [Ri ght Upper Arm] 133/87 Pulse Oximetry 98 96 97 Oxygen Delivery Me thod Room Air 10/14/24 13:34 10/14/24 14:32 10/14/24 14:59 Temperature 97.8 F Pulse Rate 71 94 Pulse Rate [Pulse Oximeter] 87 Pulse Rate [Right Pulse Oximeter] Respiratory Rate 14 22 16 Blood Pressure 138/91 H 158/69 H Blood Pressure [Le ft Arm] Blood Pressure [Ri ght Arm] Blood Pressure [Ri ght Upper Arm] 155/78 H Pulse Oximetry 96 96 97 Oxygen Delivery Nv thod Room Air 10/14/24 14:59 10/14/24 15:01 10/14/24 15:32 Temperature Pulse Rate 86 85 89 Pulse Rate [Pulse Oximeter] Pulse Rate [Right Pulse Oximeter] Respiratory Rate 16 19 18 Blood Pressure 155/78 H 148/77 H 152/72 H Blood Pressure [Le ft Arm] Blood Pressure [Ri ght Arm] Blood Pressure [Ri ght Upper Arm] Pulse Oximetry 97 96 98 Oxygen Delivery Me thod 10/14/24 16:52 10/14/24 16:52 10/14/24 19:25 Temperature 98.0 F 98 F Pulse Rate Pulse Rate [Pulse Oximeter] Pulse Rate [Right Pulse Oximeter] 85 100 Respiratory Rate 16 16 Blood Pressure Blood Pressure [Le ft Arm] 132/82 133/68 Blood Pressure [Ri ght Arm] Blood Pressure [Ri ght Upper Arm] Pulse Oximetry 96 96 Oxygen Delivery Me thod Room Air Room Air Room Air 10/14/24 22:59 10/14/24 23:00 10/15/24 03:00 Temperature 98.1 F 98.1 F Pulse Rate Pulse Rate [Pulse Oximeter] Pulse Rate [Right Pulse Oximeter] 72 79 Respiratory Rate 16 16 16 Blood Pressure Blood Pressure [Le ft Arm] Blood Pressure [Ri ght Arm] 124/69 122/63 Blood Pressure [Ri ght Upper Arm] Pulse Oximetry 95 95 94 Oxygen Delivery Me thod Room Air Room Air Room Air 10/15/24 08:36 10/15/24 08:36 10/15/24 08:47 Temperature 98 F Pulse Rate Pulse Rate [Pulse Oximeter] Pulse Rate [Right Pulse Oximeter] 62 62 Respiratory Rate 14 14 14 Blood Pressure Blood Pressure [Le ft Arm] Blood Pressure [Ri ght Arm] 119/60 Blood Pressure [Ri ght Upper Arm] Pulse Oximetry 94 94 Oxygen Delivery Me thod Room Air Room Air Results Labs Labs: Abnormal lab results 10/14/24 10/14/24 10/14/24 Range/Units 12:18 12:45 13:56 RBC 3.59 L (4.00-5.20) m/uL Hgb 11.2 L (12.0-16.0) gm/dL Hct (33.0-51.0) % Sodium 132 L (135-149) mmol/L Anion Gap (7-15) mEq/L Glucose 245 H (60-115) mg/dL Hemoglobin A1c (0-5.6) % TIBC (265-497) ug/dL C-Reactive Protein 5.8 H (0.5-1.0) mg/dL Vitamin B12 (243-894) pg/mL Urine Glucose (UA) 2+ A (Negative) Urine Nitrite Positive A (Negative) Urine Bacteria Many A (None) POC Glucose 245 H (60-115) mg/dl 10/15/24 Range/Units 06:00 RBC 3.25 L (4.00-5.20) m/uL Hgb 10.3 L (12.0-16.0) gm/dL Hct 31.2 L (33.0-51.0) % Sodium (135-149) mmol/L Anion Gap 5 L (7-15) mEq/L Glucose 150 H (60-115) mg/dL Hemoglobin A1c 9.0 H (0-5.6) % TIBC 242 L (265-497) ug/dL C-Reactive Protein (0.5-1.0) mg/dL Vitamin B12 > 1000 H (243-894) pg/mL Urine Glucose (UA) (Negative) Urine Nitrite (Negative) Urine Bacteria (None) POC Glucose (60-115) mg/dl Diabetes panel 10/14/24 10/15/24 Range/Units 12:45 06:00 Sodium 132 L 136 (135-149) mmol/L Potassium 5.0 5.0 (3.6-5.1) mmol/L Chloride 102 106 (96-114) mmol/L Carbon Dioxide 23 25 (20-32) mmol/L BUN 23 15 (7-30) mg/dL Creatinine 1.1 1.0 (0.5-1.5) mg/dL Glucose 245 H 150 H (60-115) mg/dL Hemoglobin A1c 9.0 H (0-5.6) % Calcium 9.7 9.2 (8.4-10.6) mg/dL AST 24 19 (12-35) U/L ALT 16 12 (4-35) U/L Alkaline Phosphatase 61 60 (40-150) U/L Total Protein 6.8 6.2 (6.0-8.3) g/dL Albumin 3.9 3.4 (3.3-5.0) g/dL Calcium panel 10/14/24 10/15/24 Range/Units 12:45 06:00 Calcium 9.7 9.2 (8.4-10.6) mg/dL Albumin 3.9 3.4 (3.3-5.0) g/dL Pituitary panel 10/14/24 10/15/24 Range/Units 12:45 06:00 Sodium 132 L 136 (135-149) mmol/L Potassium 5.0 5.0 (3.6-5.1) mmol/L Chloride 102 106 (96-114) mmol/L Carbon Dioxide 23 25 (20-32) mmol/L BUN 23 15 (7-30) mg/dL Creatinine 1.1 1.0 (0.5-1.5) mg/dL Glucose 245 H 150 H (60-115) mg/dL Calcium 9.7 9.2 (8.4-10.6) mg/dL Adrenal panel 10/14/24 10/15/24 Range/Units 12:45 06:00 Sodium 132 L 136 (135-149) mmol/L Potassium 5.0 5.0 (3.6-5.1) mmol/L Chloride 102 106 (96-114) mmol/L Carbon Dioxide 23 25 (20-32) mmol/L BUN 23 15 (7-30) mg/dL Creatinine 1.1 1.0 (0.5-1.5) mg/dL Glucose 245 H 150 H (60-115) mg/dL Calcium 9.7 9.2 (8.4-10.6) mg/dL Total Bilirubin 0.5 0.3 (0.1-1.5) mg/dL AST 24 19 (12-35) U/L ALT 16 12 (4-35) U/L Alkaline Phosphatase 61 60 (40-150) U/L Total Protein 6.8 6.2 (6.0-8.3) g/dL Albumin 3.9 3.4 (3.3-5.0) g/dL All other labs normal. Imaging Abdomen CT scan report/results: report reviewed and image reviewed Abdominal ultrasound report/results: report reviewed and image reviewed Progress Note:A&P Assessment and plan (1) Right sided abdominal pain: Status: Acute Assessment and Plan: Patient presents with right-sided abdominal pain and persistent nausea. Workup was reviewed with evidence of a large stone within the gallbladder. This was documented back in 2023. No significant distention or inflammation of the gallbladder. A CT scan shows thickening and inflammation of the gastric outlet, suspicious for peptic ulcer disease. This inflammation extends to the pancreaticoduodenal groove. Concern at this time for gastritis and peptic ulcer disease as etiology of symptoms. Low concern at this time for cholecystitis. Patient did have an MRCP performed last year, which showed some narrowing at the ampulla. Her LFTs have been within normal limits during this hospital stay and I do not currently have concern for biliary obstruction. Recommend we workup her peptic ulcer disease with an upper endoscopy. Patient is okay to have a low-fat diet today, NPO at midnight. If the endoscopy shows no evidence of inflammation or ulceration, would consider a HIDA scan as a next step.
[2024-10-15] MEDS: cefTRIAXone 1 GM in 0.9 % SODIUM CHLORIDE Mini-bag 100 ML IVPB (14:38)
[2024-10-15] MEDS: INSULIN ASPART 100 UNIT/ML SUBCUT ×2 (16:58→20:40)
--- NOTE | 2024-10-15 17:57 | PC.NURSE ---
End of Shift: Patient pleasant and cooperative. Patient vitally stable, lungs clear, BS WNL, IV SL and intact. Patient denies pain and nausea. Patient is independent in room. Patient urinating well, no BM this shift. Patient is tolerating regular diet. Blood sugars 144, 150, 214.
[2024-10-15 18:37] LABS: Fecal Occult Blood* Negative (Negative)
[2024-10-15 18:40] LABS: H pylori Ag Stool* POSITIVE (Negative)
--- NOTE | 2024-10-15 18:50 | PM.EN ---
Chart Event Note Chart Event Note: Stool H pylori Ag is positive. Stool occult blood negative. I will hold off on treatment for H pylori as the patient is doing very well today, eating without symptoms and she is scheduled for EGD tomorrow. I do not want to start the regimen today as it contains bismuth, which may affect the EGD. Treatment can be started tomorrow after the EGD is complete.
--- NOTE | 2024-10-15 18:54 | W.PM.CROSSCO ---
Assessment and Plan Assessment and plan (1) Helicobacter pylori stool test positive: Status: Acute Plan Stool H pylori Ag is positive. Stool occult blood negative. I will hold off on treatment for H pylori as the patient is doing very well today, eating without symptoms and she is scheduled for EGD tomorrow. I do not want to start the regimen today as it contains bismuth, which may affect the EGD. Treatment can be started tomorrow after the EGD is complete.
[2024-10-15] MEDS: VALSARTAN 80 MG TABLET 40 MG PO (20:43)
[2024-10-15] MEDS: MAGNESIUM OXIDE 400 MG TABLET PO (20:43)
[2024-10-15] MEDS: METOPROLOL SUCCINATE (XL) 25 MG TAB PO (20:44)
[2024-10-15] MEDS: MIRTAZAPINE 15 MG TABLET 7.5 MG PO (20:51)
[2024-10-16 03:00] VITALS: BP 111/65; PULSE 78; RESP 16; TEMP 36.7; O2SAT 96
--- NOTE | 2024-10-16 05:52 | PC.NURSE ---
end of shift [id number]: Pt AxOx4, pleasant, and cooperative with cares. Denies nausea and pain for the entirety of the shift. SBA with cane during transfers. Continent of the bladder. Able to sleep for majority of the shift. Pt appears resting with call light in reach.
[2024-10-16 06:19] LABS: Hematocrit* 31.0 % (33.0-51.0); Hemoglobin* 10.2 gm/dL (12.0-16.0); Mean Corpuscular HGB Conc 33 gm/dL (32-36); Mean Corpuscular Hemoglobin 32 pg (26-34); Mean Corpuscular Volume 96 fL (80-100); Red Blood Count* 3.24 m/uL (4.00-5.20); White Blood Count* 5.88 K/uL (4.50-11.00)
[2024-10-16 06:26] LABS: Slide Review Reflex No
[2024-10-16 06:29] LABS: Albumin* 3.5 g/dL (3.3-5.0); Chloride* 103 mmol/L (96-114); Potassium* 4.4 mmol/L (3.6-5.1); Sodium* 135 mmol/L (135-149)
[2024-10-16 06:32] LABS: Alanine Aminotransferase* 13 U/L (4-35); Alkaline Phosphatase* 56 U/L (40-150); Anion Gap 7 mEq/L (7-15); Aspartate Amino Transferase* 22 U/L (12-35); Bilirubin Total* 0.3 mg/dL (0.1-1.5); Blood Urea Nitrogen* 19 mg/dL (7-30); Calcium* 9.3 mg/dL (8.4-10.6); Carbon Dioxide* 25 mmol/L (20-32); Creatinine* 1.0 mg/dL (0.5-1.5); Est. Creatinine Clearance* 34.90; Estimated Glomerular Filt Rate 57 ml/min; Glucose* 147 mg/dL (60-115); Total Protein* 6.3 g/dL (6.0-8.3)
[2024-10-16 07:00] VITALS: BP 114/54; PULSE 55; RESP 18; TEMP 36.7; O2SAT 94; O2SAT 96
--- NOTE | 2024-10-16 09:49 | P.ANES_ITS ---
Anesthesia Charges Start Date/Time Anesthesia Start Date: 10/16/24 Anesthesia Start Time: 10:25 Stop Date/Time Anesthesia Stop Date: 10/16/24 Anesthesia Stop Time: 10:42 Summary Extremes of Age - Over 70 or under 1: MDA Coding CPT Codes CPT Codes: ANES UPR GI NDSC PX NOS - 81352 ([id number]) P4 - PT W/SEV SYS DIS THREAT LIFE, QK - LINE INSTALLER 2-4 CNCRNT ANES PROC, QX - DUCT LAYER HELPER SVC W/ MD MED DIRECTION Additional Codes: Summary - Extremes of Age - Over 70 or under 1: MDA ([id number])
--- NOTE | 2024-10-16 09:49 | W.ANESCHARGE ---
Anesthesia Charges Start Date/Time Anesthesia Start Date: 10/16/24 Anesthesia Start Time: 10:25 Stop Date/Time Anesthesia Stop Date: 10/16/24 Anesthesia Stop Time: 10:42 Summary Extremes of Age - Over 70 or under 1: MDA Coding CPT Codes CPT Codes: ANES UPR GI NDSC PX NOS - 98003 ([id number]) P4 - PT W/SEV SYS DIS THREAT LIFE, QK - DISPATCH ASSOCIATE 2-4 CNCRNT ANES PROC, QX - FOOD CHECKER SVC W/ MD MED DIRECTION Additional Codes: Summary - Extremes of Age - Over 70 or under 1: MDA ([id number])
--- NOTE | 2024-10-16 10:45 | P.ANES_ITS ---
Anesthesia Charges Start Date/Time Anesthesia Start Date: 10/16/24 Anesthesia Start Time: 10:25 Stop Date/Time Anesthesia Stop Date: 10/16/24 Anesthesia Stop Time: 10:42 Summary Extremes of Age - Over 70 or under 1: SADDLE AND HARNESS MAKER Coding CPT Codes CPT Codes: ANES UPR GI NDSC PX NOS - 72101 ([id number]) P4 - PT W/SEV SYS DIS THREAT LIFE, QX - SADDLE AND HARNESS MAKER SVC W/ MD MED DIRECTION, QK - ASSEMBLER TRACTOR 2-4 CNCRNT ANES PROC Additional Codes: Summary - Extremes of Age - Over 70 or under 1: SADDLE AND HARNESS MAKER ([id number])
--- NOTE | 2024-10-16 10:45 | W.ANESCHARGE ---
Anesthesia Charges Start Date/Time Anesthesia Start Date: 10/16/24 Anesthesia Start Time: 10:25 Stop Date/Time Anesthesia Stop Date: 10/16/24 Anesthesia Stop Time: 10:42 Summary Extremes of Age - Over 70 or under 1: SOFTWARE ENGINEER BACKEND Coding CPT Codes CPT Codes: ANES UPR GI NDSC PX NOS - 80829 ([id number]) P4 - PT W/SEV SYS DIS THREAT LIFE, QX - SOFTWARE ENGINEER BACKEND SVC W/ MD MED DIRECTION, QK - FRENCH COMBER 2-4 CNCRNT ANES PROC Additional Codes: Summary - Extremes of Age - Over 70 or under 1: SOFTWARE ENGINEER BACKEND ([id number])
[2024-10-16 11:00] VITALS: BP 133/70; PULSE 61; RESP 18; TEMP 36.7; O2SAT 94
--- NOTE | 2024-10-16 11:19 | P.GSPN_ITS ---
Subjective Subjective Date Seen: 10/16/24 Interval history: Patient doing well this morning. Denies any abdominal pain. She tolerated a diet yesterday without abdominal pain. She wonders when she can go home. Risks and benefits of an upper endoscopy were explained at length with the patient with her understanding and agreeing to proceed. Exam Narrative: Exam Narrative: Abdomen: Soft, nontender and nondistended Const: Vital Signs, click to edit/add: Vital Signs - 24 hr 10/15/24 15:00 10/15/24 15:00 10/15/24 15:00 Temperature 98.2 F Pulse Rate [Right Pulse Oximeter] 73 73 Respiratory Rate 18 18 18 Blood Pressure [Le ft Arm] 128/64 Blood Pressure [Ri ght Arm] Pulse Oximetry 94 94 Oxygen Delivery Me thod Room Air Room Air 10/15/24 19:00 10/15/24 22:49 10/15/24 22:49 Temperature 98.1 F 97.8 F Pulse Rate [Right Pulse Oximeter] 73 88 Respiratory Rate 18 18 18 Blood Pressure [Le ft Arm] Blood Pressure [Ri ght Arm] 119/50 L 124/67 Pulse Oximetry 97 95 95 Oxygen Delivery Me thod Room Air Room Air Room Air 10/16/24 03:00 10/16/24 07:00 10/16/24 07:00 Temperature 98.1 F 98.0 F Pulse Rate [Right Pulse Oximeter] 78 55 L Respiratory Rate 16 18 18 Blood Pressure [Le ft Arm] Blood Pressure [Ri ght Arm] 111/65 114/54 L Pulse Oximetry 96 96 94 Oxygen Delivery Me thod Room Air Room Air Room Air Progress Note:A&P Assessment and plan (1) Right sided abdominal pain: Status: Acute Assessment and Plan: Patient presents with right-sided abdominal pain and persistent nausea. Evidence of inflammation on CT imaging to these stomach and duodenum, concerning for peptic ulcer disease. I took the patient for an upper endoscopy this tess mcgee. She does have evidence of moderate gastritis, severe inflammation of the duodenal bulb and 1st portion of the duodenum with several ulcers identified. This is consistent with peptic ulcer disease. Biopsies were obtained to rule out H pylori. Hospitalist will prescribe appropriate treatment protocol. Recommend she repeat an upper endoscopy in 3-4 months to document resolution.
[2024-10-16] MEDS: PANTOPRAZOLE SODIUM 40 MG INJ IVP (11:36)
[2024-10-16] MEDS: SPIRONOLACTONE 25 MG TABLET 12.5 MG PO (11:37)
[2024-10-16] MEDS: SODIUM CHLORIDE 0.9 % (FLUSH) 10 ML SYRINGE 5 ML IVF (11:38)
[2024-10-16] MEDS: ROSUVASTATIN CALCIUM 10 MG TABLET 20 MG PO (11:38)
--- NOTE | 2024-10-16 13:00 | PC.SOCIAL ---
public services assistant note: SW met with patient to determine if she lives in the [place] or [place] campus at [facility]. Patient reports that she lives at [facility] and does not receive services at this time. Patient states that she just moved in 4 days ago, so has really not spent much time there aside from a day. SW will not be following up with [facility] regarding discharge as it seems patient is in independent living and is not receiving services.
--- NOTE | 2024-10-16 15:06 | P.DS_ITS ---
DS: Providers Provider Date Seen: 10/16/24 Date of admission: 10/14/24 16:17 Primary care physician: Not a Local Provider Admitting Clinician: Cassidy Owusu MD Consults: 10/14/24 18:44 Consult to Physician [CONS] Routine Comment: Consulting Provider: Aiyana Prasad Has provider been notified: Yes Attending Physician on discharge: Carito Man MD DS: Diagnosis Discharge Diagnosis (1) Peptic ulcer disease: Status: Acute Problem details: - Gastric outlet inflammation and likely peptic ulcer disease on CT abdomen/pelvis; inflammation extends into the pancreaticoduodenal groove, lipase is reassuring. No evidence of cholecystitis on CT or US. Could be secondary to symptomatic cholelithiasis. I spoke with Dr. Prasad from general surgery who recommends treating probable PUD and get EGD first. Dr. Prasad will see patient tomorrow in consultation. - Treat with IV PPI BID, clear liquid diet, EGD ordered - not available until Wednesday. Check for Hpylori. Hold metformin (she's been taking this for years, so less likely the cause of nausea). - EKG show QTC of 496ms, so I will avoid ondansetron. Lorazepam worked well for nausea in ER. 10/15: Hemoglobin stable. No bowel movements yet, but patient denies history of black stools or blood in the stool. -on clear liquids. NPO after midnight for EGD tomorrow. -continue pantoprazole IV b.i.d. -no bowel movements yet for H pylori antigen test. 10/16: upper endoscopy consistent with peptic ulcer disease. Biopsies were obtained to rule out H pylori. -I prescribed bismuth quadrant therapy treatment protocol. - discussed with the family and the patient the need to follow-up with her primary care physician and then get an H pylori eradication test in few weeks, in addition Dr. Prasad recs she repeat an upper endoscopy in 3-4 months to document resolution. (2) Right sided abdominal pain: Status: Acute Problem details: - as above 10/15 : No nausea and no abdominal pain. (3) Gastric inflammation: Status: Acute Problem details: - as above, clears, PPI, obtain EGD - ordered for Wednesday (4) Dilation of biliary tract: Status: Acute Problem details: 2023 - CT and ultrasound suggest cholecystitis. Patient has constitutional symptoms of illness including abdominal pain in loss of appetite. Treated as cholecystitis. MRCP shows dilated common duct with no definite stone. Narrowing of the distal common duct at the ampulla. Reviewed with surgery and patient and family and decision is made to medically manage this for now. If recurrent symptoms may need ERCP. Consider ERCP if developing symptoms, abdominal pain, anorexia, nausea, fever, jaundice. (5) Cholelithiasis: Status: Chronic Problem details: Diagnosed in 2023 (6) Abnormal urinalysis: Status: Acute Problem details: - While patient is not having specific urinary symptoms, she does have nausea and abdominal pain. Will treat as possible UTI and await UC to rule this out as cause for her symptoms. -10/15: Patient was started on ceftriaxone yesterday. Will continue antibiotics until we get a urine culture. (7) Diabetes mellitus, type 2: Status: Chronic Problem details: - Hold metformin as patient will be on clears tonight and will be NPO tomorrow night in preparation for EGD. - Start accuchecks and ISS. - uncontrolled diabetes hemoglobin A1c elevated at 9. (8) Congestive heart failure: Status: Chronic Problem details: - NYHA class 3. History of heart failure with reduced ejection fraction. Echocardiogram 01/11/24 showed ejection fraction 36% with moderate to severe tricuspid regurgitation. - Stable, not currently in exacerbation (9) Normocytic anemia: Status: Acute Problem details: - was also present last year; she was on anticoagulation at the time - Check iron studies, B12, folate, hemoccult stool. 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 CT scan was done and showed inflammation in the stomach and the duodenal area. Patient was taken to EGD and it showed peptic ulcer disease. We started her on bismuth widely therapy for 2 weeks. Patient needs to follow-up with her primary care physician to discuss the treatment and the need for eradication test of H pylori in a few weeks. Our surgeon recommended repeat of the EGD in 3-4 months. Time Spent with Patient Time attestation: Total time spent providing and/or coordinating discharge services: Exam Narrative: Exam Narrative: Physical exam GENERAL: Comfortable, no acute distress. HEAD AND NECK: Atraumatic, normocephalic CARDIOVASCULAR: RRR. Normal S1, S2. No murmurs. RESPIRATORY: Clear to auscultation B/L. Good air entry B/L. No wheezes or rhonchi. GASTROINTESTINAL: Not distended, not tender to palpation. NEUROLOGY: Alert, awake, oriented X 3. Normal speech. PSYCH: Normal mood, normal affect. Const: Vital Signs, click to edit/add: Vital Signs - 24 hr 10/15/24 19:00 10/15/24 22:49 10/15/24 22:49 Temperature 98.1 F 97.8 F Pulse Rate [Right Pulse Oximeter] 73 88 Respiratory Rate 18 18 18 Blood Pressure [Ri ght Arm] 119/50 L 124/67 Pulse Oximetry 97 95 95 Oxygen Delivery Me thod Room Air Room Air Room Air 10/16/24 03:00 10/16/24 07:00 10/16/24 07:00 Temperature 98.1 F 98.0 F Pulse Rate [Right Pulse Oximeter] 78 55 L Respiratory Rate 16 18 18 Blood Pressure [Ri ght Arm] 111/65 114/54 L Pulse Oximetry 96 96 94 Oxygen Delivery Me thod Room Air Room Air Room Air 10/16/24 11:00 Temperature 98.0 F Pulse Rate [Right Pulse Oximeter] 61 Respiratory Rate 18 Blood Pressure [Ri ght Arm] 133/70 Pulse Oximetry 94 Oxygen Delivery Me thod Room Air DS: Data Data Completed and Pending Labs on day of discharge: Labs from last 24 hours 10/16/24 10/15/24 05:51 18:21 WBC 5.88 RBC 3.24 L Hgb 10.2 L Hct 31.0 L MCV 96 MCH 32 MCHC 33 Plt Count 285 Sodium 135 Potassium 4.4 Chloride 103 Carbon Dioxide 25 Anion Gap 7 BUN 19 Creatinine 1.0 Estimated Creat Clear 34.90 Estimated GFR 57 Glucose 147 H Calcium 9.3 Total Bilirubin 0.3 AST 22 ALT 13 Alkaline Phosphatase 56 Total Protein 6.3 Albumin 3.5 Stool Occult Blood Negative Stool H. pylori Ag POSITIVE A Discharge Plan Discharge Disposition: Home w/ Parent or Adult Date of Admission: 10/14/24 16:17 Attending Provider on Discharge: Carito Man Consulting Providers: Aiyana Prasad Primary Care Provider: Provider,Not a Local Condition: Stable Anticipated Discharge Date/Time: 08/04/25 15:00 Discharge Medications: New bismuth subsalicylate [Bismuth] 262 mg tablet,chewable 1 tab PO QID 14 Days Qty: 56 0RF tetracycline 500 mg capsule 500 mg PO QID 14 Days Qty: 56 0RF metronidazole 500 mg tablet 500 mg PO QID 14 Days Qty: 56 0RF omeprazole 20 mg capsule,delayed release(DR/EC) 20 mg PO BID 14 Days Qty: 28 2RF Continued valsartan 40 mg tablet 40 mg PO HS bupropion HCl 150 mg tablet extended release 24 hr 300 mg PO DAILY aspirin 81 mg capsule 81 mg PO DAILY metoprolol succinate 25 mg tablet extended release 24 hr 25 mg PO HS budesonide 3 mg capsule,delayed,extend.release 3 mg PO DAILY rosuvastatin 20 mg tablet 20 mg PO DAILY metformin 500 mg tablet extended release 24 hr 1,000 mg PO DAILY Qty: 60 0RF furosemide 20 mg tablet 20 mg PO Q48H mirtazapine 7.5 mg tablet 7.5 mg PO HS spironolactone 25 mg tablet 12.5 mg PO DAILY Held magnesium oxide 400 mg (241.3 mg magnesium) Tablet 400 mg PO HS Hold Instructions: Resume on 10/31/24. Hold till you finish H pylori traetment Discharge Orders: Discharge Order (Routine); Ordered 10/16/24 Ordered By: Carito Man Patient Education: Tetracycline (By mouth), Metronidazole (By mouth), Omeprazole (By mouth), Bismuth Subsalicylate (By mouth), H Pylori (Helicobacter Pylori) Infection (GEN) Additional Instructions: You need to follow up with primary care physician in 1 week to discuss the H pylori treatment. Your primary care physician need to do an eradication test for h pylori a few weeks after finishing the traetment You need to take the 4 prescribed medications for 2 weeks as instructed. Activity Level: Activity as Tolerated Discharge Diet: Diabetic and Heart Healthy (2 gm sodium, low fat) Follow Up Appointments: Provider,Not a Local [Primary Care Provider, Family Practice] [facility]: [facility]
[2024-10-17 07:03] LABS: Folate, Serum >22.3 ng/mL (>=5.9)
== END 2024-10-16 14:15 | disposition home or self-care (01) ==
LOC: ED 15:43 → MEDSURG 16:18
PROVIDERS: Student in an Organized Health Care Education/Training Program; Admitting Provider Family Medicine; Emergency Provider Family Medicine; Visit Provider Family Medicine
DX: K27.9 Peptic ulcer, site unspecified, unspecified as acute or chronic, without hemorrhage or perforation (principal); K80.20 Calculus of gallbladder without cholecystitis without obstruction; B96.81 Helicobacter pylori [H. pylori] as the cause of diseases classified elsewhere; E11.9 Type 2 diabetes mellitus without complications; I50.9 Heart failure, unspecified
CPT/HCPCS: 00731; 36415; 43239; 74177; 76705; 80053; 81001; 82248; 82270; 82607; 82746; 82947; 82962; 83036; 83540; 83550; 83605; 83690; 85025; 85027; 86140; 87086; 87338; 88305; 93005; 94761; 96365; 96366; 96375; 99100; 99285; A9270; G0378; J0696; J2060; J2470; J2704; J3490; J7030; J7050; Q9967